=== PATIENT | female | born 1940 | race Caucasian/White ===

== ENCOUNTER 2020-01-22 00:17 | Outpatient (CLI) | payer MEDICARE, SELFPAY ==
[2020-01-22 20:43] LABS: SARS-CoV-2 RNA PCR Negative
== END 2020-01-22 00:18 | disposition home or self-care (01) ==
LOC: ANHCOVIDDT 00:18
PROVIDERS: PCP Internal Medicine; Visit Provider Specialist
DX: Z01.818 Encounter for other preprocedural examination (principal); Z11.59 Encounter for screening for other viral diseases
CPT/HCPCS: 87635; C9803; U0003

== ENCOUNTER 2020-01-25 05:23 | Day surgery (SDC) | payer MEDICARE, SELFPAY ==
[2020-01-22 16:57] VITALS: BMI 24.5
[2020-01-25] VITALS (10 sets, daily range): BP systolic 116–156; BP diastolic 69–104; PULSE 71–97; RESP 14–20; TEMP 36.6–36.8; O2SAT 96–99
--- NOTE | ~2020-01-25 | XR_ITS ---
EXAMINATION: XR chest 1V portable INDICATION: Pacemaker insertion TECHNIQUE: Portable AP chest at 1134 hours COMPARISON: None available FINDINGS: A dual-lead pacemaker of the left chest wall ends with its leads in expected positions. The re is no pneumothorax. The lungs are free of acute opacities. The cardiomediastinal silhouette is nor mal. Subsegmental atelectasis is noted in the mid and lower lung zones. Calcified pulmonary nodules a nd calcified left hilar lymph nodes are consistent with old granulomatous disease. Moderate left gordon ohumeral joint osteoarthritis is noted. IMPRESSION: 1. Left sided pacemaker with leads in expected position. No pneumothorax or acute cardiopulmonary abn ormality. Reviewed, dictated and finalized at location A. IMPRESSION: 1. Left sided pacemaker with leads in expected position. No pneumothorax or acu te cardiopulmonary abnormality.
--- NOTE | ~2020-01-25 | XR_ITS ---
EXAMINATION: XR chest 2V DATE: 01/26/2020 11:16 INDICATION: Pacemaker insertion TECHNIQUE: PA and lateral views of the chest are obtained. COMPARISON: 320 FINDINGS: A dual-lead pacemaker of the left chest wall ends with leads in expected position. There is mild atelectasis of the lower lung zones. There is no pleural effusion or pneumothorax. The cardiome diastinal silhouette is normal. There is mild thoracic spondylosis. IMPRESSION: 1. Pacemaker insertion without pneumothorax. Reviewed, dictated and finalized at location A.
--- NOTE | 2020-01-25 08:30 | ECG_ITS ---
Measurements Intervals [place] Rate: 94 P: 43 HI: 175 QRS: -13 QRSD: 82 T: 10 QT: 361 QTc: 451 Interpretive Statements SINUS RHYTHM POSSIBLE LEFT ATRIAL ENLARGEMENT INCOMPLETE RIGHT BUNDLE BRANCH BLOCK POSSIBLE LEFT VENTRICULAR HYPERTROPHY BORDERLINE ST-T WAVE ABNORMALITY- ANTEROLAT/INF LEADS BASELINE ARTIFACT- II, III BORDERLINE ECG Electronically Signed On 01-25-2020 9:34:41 CDT by Jose Varghese D.O.
[2020-01-25 09:22] LABS: Basophils Absolute Auto 0.1 K/mm3 (0.0-0.1); Basophils Percent Auto 0.7 % (0.2-1.2); Eosinophils Absolute Auto 0.1 K/mm3 (0-0.3); Eosinophils Percent Auto 1.4 % (0-4.4); Hematocrit 44.5 % (37.0-47.0); Immature Granulocyte Absolute 0.02 K/mm3 (0.00-0.031); Immature Granulocyte Percent A 0.3 % (0-0.5); Lymphocytes Absolute Auto 1.07 K/mm3 (0.9-3.2); Lymphocytes Percent Auto 14.9 % (18.3-44.2); Mean Corpuscular HGB Conc 33.7 g/dl (32-36); Mean Corpuscular Hemoglobin 31.9 pg (26-34); Mean Corpuscular Volume 94.7 fl (80-100); Monocytes Absolute Auto 0.6 K/mm3 (0.1-0.6); Monocytes Percent Auto 8.8 % (2.6-8.5); Neutrophils Absolute Auto 5.3 K/mm3 (1.3-6.7); Neutrophils Percent Auto 73.9 % (45.5-73.1); Platelet Count Result 315 k/mm3 (150-375); Red Cell Distribution Width 12.4 % (11.5-14.5); White Blood Count 7.2 K/mm3 (4.5-10.0)
--- NOTE | 2020-01-25 09:23 | WPDMODSED ---
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 Present Complaint: Intermittent episodes of near syncope for approximately 1 year Procedure to be performed/Plan: implantation of permanent pacemaker device Allergies Allergy/AdvReac Type Severity Reaction Status Date / Time No Known Allergies Allergy Verified 01/14/20 14:09 Home Medications Medication Instructions Recorded Confirmed Type acetaminophen 325 mg tablet 650 mg PO Q4H PRN tablet 08/25/19 01/22/20 History aspirin 81 mg tablet,delayed 81 mg PO DAILY 08/25/19 01/25/20 History release hyoscyamine sulfate 0.375 mg 0.375 mg PO Q12H 08/25/19 01/25/20 History tablet,extended release,12 hr potassium chloride 10 mEq 10 meq PO 3XW 08/25/19 01/25/20 History capsule,extended release pravastatin 40 mg tablet 40 mg PO DAILY 08/25/19 01/25/20 History meclizine 25 mg PO TID PRN 01/22/20 01/22/20 History calcium polycarbophil [FiberCon] 1,250 mg PO DAILY 01/25/20 01/25/20 History Current Medications: Active Medications Cefazolin Sodium (Ancef 1 Gm/D5w 50 Ml Pm) 1 gm in 50 mls @ 100 mls/hr IVPB ONCE ONE Stop: 01/25/20 10:29 Sedation/Anesthesia: No previous sedation/anesthesia problems (including family history). [facility]LY [facility] Past Medical History Medical History (System 01/14/20 @ 14:09 by Rosaura Wilder) Body mass index (bmi) 25.0-25.9, adult (02/25/19) Dizziness Dyslipidemia Essential hypertension History of IBS History of mitral valve prolapse Family History Family History (System 01/14/20 @ 14:09 by Rosaura Wilder) Father Cerebrovascular accident, Onset Age: 88 Mother Family history of arthritis, Onset Age: 85 Social History Social History (System 01/14/20 @ 14:09 by Rosaura Wilder) Smoking status: Never smoker Second hand tobacco smoke exposure: Yes Alcohol intake: never Substance use: never Substance use type: does not use Living arrangements: with family Gender identity (if verbalized by the patient): Female Spiritual care concerns: No Mod Sed Physical Exam Physical Exam Pre Procedural Exam: Normal: Appearance, Neck, Throat, Airway, Lungs, Heart Size, Heart Rate, Heart Rhythm, Neuro Exam and Extremities Hours since solid foods: 12 Hours since liquid intake: 12 Internal Medicine - PN: Minoo Da Meds/Results Medications: Active Medications Generic Name Dose Route Start Last Admin Trade Name Freq PRN Reason Stop Dose Admin Cefazolin Sodium 1 gm in 50 mls @ 100 mls/hr 01/25/20 10:00 Ancef 1 Gm/D5w 50 Ml Pm IVPB 01/25/20 10:29 ONCE ONE Labs CBC & Chem 7: 01/25/20 09:09 01/25/20 09:09 ASA Classification/Sedation ASA Classification/Sedation Risks: Risks, benefits and alternatives explained and patient/family accepted plan for sedation. Patient re-evaluated immediately prior to sedation.
[2020-01-25 09:24] LABS: Prothrombin Time 12.5 Seconds (11.1-14.7)
[2020-01-25 09:26] LABS: Anion Gap 11.5 mmol/L (7-16); Blood Urea Nitrogen 22 mg/dL (7-17); Calcium 9.5 mg/dL (8.4-10.2); Carbon Dioxide 26 mmol/L (22-30); Chloride 106 mmol/L (98-107); Estimated CRCL calculation 30 ml/min; Estimated Glomerular Filt Rate 48; Glucose 109 mg/dL (65-105); Potassium 3.5 mmol/L (3.4-5.0); Sodium 140 mmol/L (137-145)
--- NOTE | 2020-01-25 11:04 | ECG_ITS ---
Measurements Intervals [place] Rate: 70 P: 44 ID: [id number] QRS: -19 QRSD: 108 T: -7 QT: 383 QTc: 414 Interpretive Statements SINUS RHYTHM INCOMPLETE RIGHT BUNDLE BRANCH BLOCK LOW QRS VOLTAGE IN PRECORDIAL LEADS VOLTAGE CRITERIA FOR LVH BORDERLINE ST-T WAVE ABNORMALITY- INFERIOR LEADS BASELINE ARTIFACT- I, II, III, AVL, AVF BORDERLINE ECG Electronically Signed On 01-25-2020 11:57:35 CDT by Jose Varghese D.O.
--- NOTE | 2020-01-25 11:05 | WPDCARDPROC ---
Cardiac Cath Procedure Note Date of procedure:: 01/25/20 Performing physician:: Satish Holder MD Indication:: symptomatic bradycardia with second-degree AV block Brief clinical history:: this is a 79-year-old woman with a 1 year history of episodes of intermittent near-syncope. A 30 day event monitor has demonstrated evidence of intermittent second-degree AV block and for this reason implantation of a permanent pacemaker has been recommended Procedure Procedure performed:: permanent Biotronik dual-chamber pacemaker implantation Sedation/Medication given:: fentanyl 50 mg Versed 2 mg case start time 10:13 a.m. case end time 10:59 a.m. sedation provided by Kelly Ortiz RN , trained observer Access site:: left subclavian vein Estimated blood loss:: 15-20 cc Procedure note:: patient was brought to the cardiac catheterization lab i in the postabsorptive state. The left anterior chest wall was prepared and draped in the usual fashion. Following this anesthesia was injected locally with lidocaine inferior to the clavicle. An incision was then made inferior to the clavicle from the midclavicular line to the deltopectoral groove. Using sharp and blunt dissection the subcutaneous fat was dissected and the prepectoral fascia was identified. The electrocautery was used to provide cutaneous hemostasis. The a blunt dissection was used to create a pacemaker pocket inferior to the incision this was packed with an antibiotic soaked sponge. Following this attention was turned to venous access. Using the safe sheath kit supplied provided the left subclavian vein was punctured and the J guidewires were advanced under fluoroscopic guidance to the level of the right atrium. Following this to pacemaker safe sheaths were used to access the vein and place the leads mentioned below into the venous circulation to the level of the right atrium. Attention was then turned to the ventricular lead. The stylette was withdrawn and the 3 cc syringe was used to fashion a J-tip stylet. This was used to steer the lead through the RV out to the PA position. A straight stylet was placed back into the lead was withdrawn and placed into the right ventricular apical position. The fixation screw was deployed and the lead was tested using the analyzer appropriate pacing and sensing performance was demonstrated. There was no extracardiac stimulation with a 10 both stimulus. Attention was then turned to the atrial lead. The straight stylet was withdrawn and a preformed J stylet was placed into the lead there was positioned into the right atrial appendage and the fixation screw was deployed. Upon withdrawal of the stylet the lead was fixed into position. The lead performance was also tested using the analyzer with good pacing and sensing and no extracardiac stimulation was demonstrated with a 10 volts stimulus. Following this the leads were sutured to the base of the pocket using the supplied suture sleeves on the leads. This was done with 2 0 silk. The retained sponge was removed and the pocket was irrigated with antibiotic as it infused saline. After this the generator detailed below was connected to the leads using the torque wrench the entire assembly was placed into the newly created pocket this was then closed in layers using 3 0 Vicryl in an interrupted fashion for the subcutaneous tissue and 4 0 Vicryl in a running subcuticular fashion for the skin. The wound was dressed with an Aquacel dressing. She was taken to the holding area for recovery procedure was well tolerated there were no apparent complications. Postop antibiotics chest x-ray ECG and analgesics were ordered. Findings:: Patient received a Biotronik dual-chamber pacemaker model Edora 8 DR-T serial number [id number]. the device is programmed in the DDD mode low lower rate limit is 60 upper rate limit 130. The atrial lead is a Biotronik screw-in bipolar lead model Solia S 45, serial number [id number]. The
--- NOTE | 2020-01-25 11:54 | SUR.PHASEII ---
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 Site covered with Aquacel dressing. No evidence of bleeding or hematoma noted. AOx4. EKG completed. Chest x-ray completed. Will continue to monitor.
--- NOTE | 2020-01-25 12:17 | SUR.PHASEII ---
1215-pt moved to extended recovery. Will continue to chart in PCS.
[2020-01-25] MEDS: HYOSCYAMINE SULFATE 0.375 MG TAB.ER.12H PO (16:45)
[2020-01-25] MEDS: PRAVASTATIN SODIUM 20 MG TABLET 40 MG PO (17:39)
[2020-01-25] MEDS: ACETAMINOPHEN 325 MG TABLET 650 MG PO (23:41)
[2020-01-26 02:00] VITALS: PULSE 69
[2020-01-26 04:00] VITALS: BP 124/70; PULSE 68; RESP 16; TEMP 36.3; O2SAT 98
[2020-01-26 05:44] VITALS: PULSE 62
[2020-01-26] MEDS: HYOSCYAMINE SULFATE 0.375 MG TAB.ER.12H PO (06:36)
[2020-01-26 08:00] VITALS: BP 92/60; PULSE 81; RESP 18; O2SAT 100
[2020-01-26] MEDS: calcium polycarbophiL 625 MG TABLET 1250 MG PO (09:32)
[2020-01-26 10:26] VITALS: BP 142/86
--- NOTE | 2020-01-26 12:45 | PM.DS ---
DS: Admitting Diagnosis Admitting Diagnosis Admitting Diagnosis: Symptomatic bradycardia with second-degree AV block DS: Discharge Diagnosis Discharge Diagnosis (1) Heart block AV second degree: Code(s): I44.1 - Atrioventricular block, second degree Status: Acute Assessment and Plan: symptomatic bradycardia. Second-degree AV block. Biotronik dual-chamber pacemaker placed 01/25/2020. Pacemaker is functioning normally. Chest x-ray reveals no pneumothorax. Left subclavian Aquacel dressing intact with no swelling, ecchymosis or drainage. DS: Summary Hospital Course Reason for hospitalization: Symptomatic bradycardia with second-degree AV block Hospital Course: 79-year-old female with symptomatic bradycardia found to be in second-degree heart block was brought to the cardiac catheterization lab on 01/25/2020 for implantation of pacemaker. Dual-chamber Biotronik pacemaker was placed to Dr. Holder. Initial chest x-ray revealed no pneumothorax. She was monitored overnight. Pacemaker is functioning normally. The AV delay was adjusted due to her heart block. Chest x-ray PA and lateral again revealed no pneumothorax. Vital signs were stable. She had no complaints of lightheadedness, shortness of breath or palpitations. She was discharged home in stable condition. Status at Discharge Functional status at discharge: independent ambulation Overall status at discharge: patient is progressing back to baseline Time Spent with Patient Time attestation: Total time spent providing and/or coordinating discharge services: 20 minutes in the room doing discharge instructions and answering a number of questions, 10 minutes to do discharge order and 10 minutes to do discharge summary Time spent: Greater than 30 minutes Specific discharge activities: Specific instructions regarding the immobilizer, activity restrictions regarding how high she can move her arm and what she can do with her left arm, follow-up appointments, care of the incision including not removing the dressing, driving, [employer] home monitoring and answering a number of questions from her and her . Exam Const: General: comfortable and no acute distress Limitations: no limitations HENMT: Head: normal to inspection, normocephalic and atraumatic Ears: hearing grossly normal bilaterally General nose exam: no epistaxis Mouth: Yes moist mucous membranes Eyes: General: appearance normal, both eyes and all related structures Neck: Neck: normal visual inspection Resp: Effort & Inspection: normal respiratory effort and able to speak in complete sentences Auscultation: clear to auscultation bilaterally Cardio: Rate: regular rate Rhythm: regular rhythm Heart sounds: no murmurs Peripheral pulses: Peripheral pulses 2+ throughout GI: GI Palp: Yes Soft to palpation Auscultation: normal bowel sounds Skin: General skin exam: normal color and no rashes or lesions noted Neuro: General: gait normal Extrem: General: normal to inspection and no clubbing, cyanosis or edema Psych: Appearance: grossly normal Mental Status: mental status grossly normal Speech and movement: Normal speech and movement present Affect: normal affect Attitude: cooperative Thought process: Normal thought process present Discharge Plan Discharge Patient Disposition: Home, Self-Care Discharge Instructions: ACTIVITY:No driving until you are seen in the office for your incision check. No lifting, pushing or pulling more than 5 pounds with left arm for 1 MONTH No lifting left arm above shoulder height for 1 MONTH Wear immobilizer at night. Wear it during the day only if you are unable to remember the above activity restrictions. You may shower AFTER you are seen for incision check on February 01 but no tub baths, swimming pool or hot tub for 1MONTH Plug in your [employer] home monitoring when you get home. FOLLOW-UP:
== END 2020-01-26 13:05 | disposition home or self-care (01) ==
LOC: ANHCATHLAB 08:42 → ANHCPC 12:19
PROVIDERS: PCP Internal Medicine; Visit Provider Specialist
PROC: 0JH606Z Insertion of Pacemaker, Dual Chamber into Chest Subcutaneous Tissue and Fascia, Open Approach (ICD-10-PCS; CPT 33208; principal; 2020-01-25 10:00)
DX: I44.1 Atrioventricular block, second degree (principal); R00.1 Bradycardia, unspecified
CPT/HCPCS: 33208; 36415; 71045; 71046; 80048; 85025; 85610; 93005; A9270; C1779; C1785; J0690; J2250; J3010; J7040

== ENCOUNTER 2020-02-04 13:50 | Outpatient (CLI) | payer MEDICARE, SELFPAY ==
--- NOTE | ~2020-02-04 | CT_ITS ---
EXAMINATION: CT chest w con EXAM DATE: 02/04/2020 16:00 INDICATION: Shortness of breath. Mid chest pain. 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 TECHNIQUE: Spiral CT of the chest following intravenous injection of 75 mL Omnipaque 350. Axial, cor onal and sagittal images were reviewed. Coronal maximum intensity pixel images of chest reviewed. Frances zendejas dose-length product (DLP) for this examination was 154.95 mGy-cm. The exposure was tailored accor ding to patient size (auto mA exposure control), and iterative reconstruction (ASIR) was used as nguyen tional dose reduction technique. There is no prior study for comparison. FINDINGS: The pulmonary arteries are well opacified, no evidence of pulmonary embolism. The lungs ar e clear. There are no pleural or pericardial effusions. Tracheobronchial tree is patent. There is no mediastinal, hilar or axillary lymphadenopathy. There is no pneumothorax. Dual lead pacemaker/A ICD device. Heart normal in size. There is mild coronary arterial calcification, arterial sclerosis . There is mild emphysema. There is a 1 cm lesion at the right liver dome which is arterially enhanc ing, consistent with flash filling hemangioma. Hypervascular metastatic lesion not excludable. There is thoracic spondylosis without osteoblastic or osteolytic lesions identified. IMPRESSION: 1. Small liver dome lesion most likely flash filling hemangioma, but can't exclude hypervascular met astatic lesion. Since MR is contraindicated due to pacemaker, consider 3 month follow-up CT abdomen w ith contrast. 2. Mild emphysema. 3. No acute findings. Reviewed, dictated and finalized at location A. IMPRESSION: 1. Small liver dome lesion most likely flash filling hemangioma, but can't exc lude hypervascular metastatic lesion. Since MR is contraindicated due to pacema ker, consider 3 month follow-up CT abdomen with contrast. 2. Mild emphysema. 3. No acute findings.
== END 2020-02-04 13:51 ==
LOC: ANHIMG 02-15 13:50
PROVIDERS: PCP Internal Medicine; Visit Provider Specialist
DX: R06.02 Shortness of breath (principal); I44.1 Atrioventricular block, second degree; J43.9 Emphysema, unspecified
CPT/HCPCS: 71260; Q9967

== ENCOUNTER 2020-03-11 07:15 | Outpatient (CLI) | payer MEDICARE, SELFPAY ==
--- NOTE | ~2020-03-11 | NM_ITS ---
EXAMINATION: NM phuc stress w perfusion DATE: 03/11/2020 11:57 INDICATION: Coronary artery disease. Cardiac pacemaker. TECHNIQUE: Rest images were obtained following intravenous administration of 11.7 mCi Tc99m tetrofosm in (Myoview). The patient was infused intravenously with Lexiscan (Regadenoson). Then, 81.4 mCi Tc99m tetrofosmin (Myoview) was administered intravenously, and stress images were obtained. Data was jake nstructed into short axis and horizontal and vertical long axis SPECT images. Gated SPECT images were also obtained. COMPARISON: None. FINDINGS: There is no definite reversible or fixed perfusion abnormality to suggest ischemia or infar ction. There is normal left ventricular chamber size, wall motion and ejection fraction. Left ventr icular ejection fraction measures >70%. IMPRESSION: 1. Normal myocardial perfusion at rest and during stress. 2. Left ventricular ejection fraction measuring >70%. Reviewed, dictated and finalized at location A.
--- NOTE | 2020-03-11 07:33 | EST_ITS ---
Patient Info Name: Ml Wells Age: 79 years : 1940 Gender: Female Ht: 63 in Wt: 138 lbs BSA: 1.68 m2 Exam Date: 03/11/2020 10:18 AM Exam Location: [facility] Stress Patient Status: Outpatient Admit Date: 03/11/2020 Staff Ordering Physician: Jose Varghese DO Attending Provider: Jose Varghese DO Exercise Technologist: Loyda Guillen RDCS Exercise Physician: Jose Varghese DO Exam Type: CA stress phuc w NM Study Info Indications Z95.0 - Presence of cardiac pacemaker A regadenoson stress test was performed. Summary 1. 1. Negative lexiscan stress test for ischemic ST changes by ECG criteria. 2. 2. Baseline hypertension. 3. 3. Nuclear scan to follow and will be reported separately. Please correlate with it. 4. 4. Patient informed of the above results. Protocol: Lexiscan Stress ECG Details Stage: REST Duration (min): 9 min : 37 sec HR (bpm): 76 SBP (mmHg): 145 DBP (mmHg): 89 Stage: REST Duration (min): 16 min : 1 sec HR (bpm): 81 SBP (mmHg): 145 DBP (mmHg): 89 Stage: STAGE 1 Duration (min): 0 min : 59 sec HR (bpm): 79 SBP (mmHg): 145 DBP (mmHg): 89 Stage: RECOVERY Duration (min): 1 min : 0 sec HR (bpm): 103 SBP (mmHg): 170 DBP (mmHg): 57 Stage: RECOVERY Duration (min): 2 min : 0 sec HR (bpm): 108 SBP (mmHg): 170 DBP (mmHg): 57 Stage: RECOVERY Duration (min): 3 min : 0 sec HR (bpm): 105 SBP (mmHg): 165 DBP (mmHg): 58 Stage: RECOVERY Duration (min): 4 min : 0 sec HR (bpm): 105 SBP (mmHg): 165 DBP (mmHg): 58 Stage: RECOVERY Duration (min): 5 min : 0 sec HR (bpm): 100 SBP (mmHg): 165 DBP (mmHg): 58 Stage: RECOVERY Duration (min): 6 min : 0 sec HR (bpm): 101 SBP (mmHg): 195 DBP (mmHg): 61 Stage: RECOVERY Duration (min): 7 min : 0 sec HR (bpm): 98 SBP (mmHg): 184 DBP (mmHg): 78 Stage: RECOVERY Duration (min): 8 min : 0 sec HR (bpm): 99 SBP (mmHg): 184 DBP (mmHg): 78 Stage: RECOVERY Duration (min): 9 min : 0 sec HR (bpm): 96 SBP (mmHg): 192 DBP (mmHg): 75 Stage: RECOVERY Duration (min): 10 min : 0 sec HR (bpm): 98 SBP (mmHg): 192 DBP (mmHg): 75 Stage: RECOVERY Duration (min): 11 min : 0 sec HR (bpm): 98 SBP (mmHg): 193 DBP (mmHg): 79 Stage: RECOVERY Duration (min): 11 min : 16 sec HR (bpm): 100 SBP (mmHg): 193 DBP (mmHg): 79 Rest HR: 81 bpm Peak HR: 108 bpm Rest Sys BP: 145 mmHg Peak Sys BP: 195 mmHg Max Pred HR: 142 bpm % Max Pred HR: 76 % Target HR: 121 bpm Max RPP: 21,060 bpm*mmHg Termination Reason: Completed protocol Cardiac Symptoms: Shortness of breath Total Time: 1 min : 0 sec Rest Sanchez BP: 89 mmHg Peak Sanchez BP: 61 mmHg Total Dose: 0.4 mg Resting ECG Sinus rhythm wit
--- NOTE | 2020-03-11 07:33 | ECHO_ITS ---
Patient Info Name: Ml Wells Age: 79 years : 1940 Gender: Female Ht: 63 in Wt: 138 lbs BSA: 1.68 m2 HR: 83 bpm BP: 167 / 90 mmHg Technical Quality: Good Exam Date: 03/11/2020 7:41 AM Exam Location: [facility] Pulmonary Patient Status: Outpatient Admit Date: 03/11/2020 Staff Ordering Physician: Jose Varghese DO Glass Blower Helper: Loyda Guillen RDCS Attending Provider: Jose Varghese DO Referring Physician: Abimael CABRALES; Exam Type: CA echo doppler color flow Study Info Indications Z95.0 - Presence of cardiac pacemaker Complete two-dimensional, color flow and Doppler transthoracic echocardiogram is performed. Summary 1. Complete two-dimensional, color flow and Doppler transthoracic echocardiogram is performed. 2. Ventricular septum is sigmoid shaped. 3. E/e' 20 is elevated. 4. The mitral valve has moderately calcified annulus. Left Ventricle Ventricular septum is sigmoid shaped. E/e' 20 is elevated. Left ventricular chamber dimension is normal. Left ventricular systolic function is normal, estimated at 65-70%. There is mildly increased left ventricular wall thickness. The left ventricular diastolic function is grade I diastolic dysfunction. Right Ventricle Right ventricular chamber dimension is normal. Right ventricular systolic function is normal. Left Atria Left atrial chamber dimension is moderately enlarged. Right Atria Linear artifact in the right atrium suggestive of catheter(s), pacemaker lead(s), or ICD lead(s). Right atrial chamber dimension is normal. Aortic Valve The aortic valve is trileaflet. There is mild aortic valve sclerosis. There is no aortic valve stenosis. There is no aortic valve regurgitation. Pulmonic Valve There is no pulmonic regurgitation. Mitral Valve The mitral valve has moderately calcified annulus. There is no mitral valve stenosis. There is no mitral valve regurgitation. Tricuspid Valve There is trace tricuspid valve regurgitation. No pulmonary hypertension, estimated pulmonary arterial systolic pressure is 39 mmHg. Pericardium/Pleural There is no pericardial effusion. Inferior Vena Cava Normal inferior vena cava with >50% collapse upon inspiration consistent with normal right atrial pressure, 5 mmHg. Aorta The aortic root size at the sinus of Valsalva is normal. Left Ventricular Outflow Tract Name Value Normal LVOT 2D LVOT Diameter 1.9 cm LVOT Doppler LVOT Peak Gradient 6 mmHg LVOT Mean Gradient 3 mmHg LVOT VTI 27 cm LVOT VTI/AV VTI Ratio 0.9 LVOT Stroke Volume 75 ml LVOT CO 5.3 l/min LVOT CI 3.2 l/min/m2 Pulmonic Valve Name Value Normal RVOT Doppler RVOT
== END 2020-03-11 07:16 | disposition home or self-care (01) ==
PROVIDERS: PCP Internal Medicine; Visit Provider Internal Medicine Cardiovascular Disease
DX: R07.9 Chest pain, unspecified (principal); Z95.0 Presence of cardiac pacemaker
CPT/HCPCS: 78452; 93017; 93306; A9502; J2785

== ENCOUNTER 2020-03-23 13:42 | Emergency (ER) | payer MEDICARE, SELFPAY ==
--- NOTE | ~2020-03-23 | CT_ITS ---
EXAMINATION: CT brain wo con DATE: 03/23/2020 15:52 INDICATION: Sudden onset of dizziness, nausea, emesis. Posterior headache. TECHNIQUE: Computed tomography (CT) of the head was performed without intravenous contrast. The mA wa s adjusted according to patient size. Iterative reconstruction technique was employed. Exam dose: 68 1.00 mGy-cm total exam DLP. COMPARISON: None FINDINGS: No intracranial mass lesion or hemorrhage or cerebrovascular accident. No midline shift or mass effect. There are prominent bilateral carotid siphon internal carotid artery calcifications. There is nonspec ific diminished attenuation of the cerebral white matter, likely due to chronic small vessel ischemic changes. No subdural or epidural hematoma. There is moderate cerebral and cerebellar atrophy. At least 1.5 cm mucous retention cyst or polyp of the right maxillary sinus. The included paranasal s inuses and the mastoid air cells are otherwise unremarkable. No fracture or bone destruction of the cranial vault. IMPRESSION: Cerebral atherosclerosis and chronic small vessel ischemic changes of cerebral white mat ter Reviewed, dictated and finalized at [facility]. Reviewed, dictated and finalized at location [facility]. IMPRESSION: Cerebral atherosclerosis and chronic small vessel ischemic changes of cerebral white matter
[2020-03-23 13:53] VITALS: BP 180/76; PULSE 71; RESP 16; TEMP 36.2; O2SAT 100
--- NOTE | 2020-03-23 14:28 | ED.DIZZY ---
HPI - Dizziness General Chief Complaint: Dizziness Stated Complaint: N/V DIZZINESS SINCE 1200 Time Seen by Provider: 03/23/20 14:23 History of Present Illness HPI Narrative: Dizziness since noon. Started suddenly. Associated with nausea and vomiting, and unstable gait. Worse with movmenet and lying on her back. Feeling well prior to this. Additionally has pain in the neck and posterior portion of the head. She has never had this before. Related Data Home Medications Medication Instructions Recorded Confirmed acetaminophen 325 mg tablet 650 mg PO Q4H PRN tablet 08/25/19 02/09/20 aspirin 81 mg tablet,delayed 81 mg PO DAILY 08/25/19 02/09/20 release hyoscyamine sulfate 0.375 mg 0.375 mg PO Q12H 08/25/19 02/09/20 tablet,extended release,12 hr potassium chloride 10 mEq 10 meq PO 3XW 08/25/19 02/09/20 capsule,extended release pravastatin 40 mg tablet 40 mg PO DAILY 08/25/19 02/09/20 calcium polycarbophil [FiberCon] 1,250 mg PO DAILY 01/25/20 02/09/20 pantoprazole 40 mg tablet,delayed 40 mg PO QAM 02/09/20 02/09/20 release Allergies Allergy/AdvReac Type Severity Reaction Status Date / Time No Known Allergies Allergy Verified 02/09/20 10:03 Review of Systems Review of Systems: All systems reviewed & are unremarkable except as noted in HPI and below Constitutional: Constitutional: Denies chills, Denies fever(s) and Denies weakness Cardiovascular: Cardiovascular: Denies chest pain Respiratory: Respiratory: Denies dyspnea Gastrointestinal: Gastrointestinal: Denies abdominal pain, Reports nausea and Reports vomiting Genitourinary: Genitourinary: Denies hematuria and Denies dysuria Musculoskeletal: Musculoskeletal: Denies back pain Neurologic: Denies confusion, Reports vertigo, Reports headache(s), Denies numbness and Denies weakness [facility] Past Medical History Medical History Body mass index (bmi) 25.0-25.9, adult (02/25/19) Dizziness Dyslipidemia Essential hypertension History of IBS History of mitral valve prolapse Family History Family History Father Cerebrovascular accident, Onset Age: 88 Mother Family history of arthritis, Onset Age: 85 Social History Social History Smoking status: Never smoker Second hand tobacco smoke exposure: Yes Alcohol intake: never Substance use: never Substance use type: does not use Gender identity (if verbalized by the patient): Male Spiritual care concerns: No Exam Const: General: alert and ill appearing Nutritional Appearance: well nourished Orientation/consciousness: patient oriented x3 HENMT: Head: normal to inspection Eyes: Pupils: Equal, round and reactive pupils present EOM: EOMs intact bilaterally Resp: Effort & Inspection: normal respiratory effort Auscultation: clear to auscultation bilaterally Cardio: Rate: regular rate Rhythm: regular rhythm Skin: General skin exam: normal color Neuro: General: patient oriented x3, moves all extremities, no meningeal signs, no focal motor deficits and CN's II-XI intact bilaterally Cranial nerves: Yes Nystagmus present horizontal Speech: normal speech Extrem: General: normal to inspection and no edema Course Vital Signs Vital signs: Vital Signs Temperature 36.2 C L 03/23/20 13:53 Pulse Rate 71 03/23/20 13:53 Respiratory Rate 16 03/23/20 13:53 Blood Pressure 180/76 H 03/23/20 13:53 Pulse Oximetry 100 03/23/20 13:53 Temperature 36.2 C L 03/23/20 13:53 Pulse Rate 80 03/23/20 19:36 Respiratory Rate 20 03/23/20 19:36 Blood Pressure 138/72 03/23/20 19:36 Pulse Oximetry 99 03/23/20 19:36 MDM - Dizziness MDM Narrative Medical decision making narrative: History and exam most concerning for peripheral vertigo. Will get CT to r/o SAH or other acute intracranial
[2020-03-23] MEDS: diazePAM INJ (*CRX) 10 MG/2 ML SYRINGE 5 MG IV PUSH (14:58)
[2020-03-23] MEDS: METOCLOPRAMIDE HCL INJ 10 MG/2 ML VIAL IV PUSH (14:58)
[2020-03-23] MEDS: SODIUM CHLORIDE 0.9% IV 500 ML 999 ML IV CONT (14:59)
[2020-03-23 15:41] LABS: Basophils Absolute Auto 0.1 K/mm3 (0.0-0.1); Basophils Percent Auto 0.8 % (0.2-1.2); Eosinophils Percent Auto 0.4 % (0-4.4); Hemoglobin 14.2 g/dL (12.0-15.0); Immature Granulocyte Absolute 0.11 K/mm3 (0.00-0.031); Immature Granulocyte Percent A 1.5 % (0-0.5); Lymphocytes Absolute Auto 1.25 K/mm3 (0.9-3.2); Lymphocytes Percent Auto 16.5 % (18.3-44.2); Mean Corpuscular HGB Conc 33.8 g/dl (32-36); Mean Corpuscular Hemoglobin 31.6 pg (26-34); Mean Corpuscular Volume 93.5 fl (80-100); Mean Platelet Volume 9.4 fl (7.4-10.4); Monocytes Absolute Auto 0.5 K/mm3 (0.1-0.6); Monocytes Percent Auto 6.3 % (2.6-8.5); Neutrophils Absolute Auto 5.7 K/mm3 (1.3-6.7); Neutrophils Percent Auto 74.5 % (45.5-73.1); Platelet Count Result 281 k/mm3 (150-375); Red Blood Count 4.49 M/mm3 (4.2-5.4); Red Cell Distribution Width 12.5 % (11.5-14.5); White Blood Count 7.6 K/mm3 (4.5-10.0)
[2020-03-23 15:48] LABS: Anion Gap 7 mmol/L (8-16); Blood Urea Nitrogen 26 mg/dL (7-17); Calcium 9.7 mg/dL (8.4-10.2); Carbon Dioxide 29 mmol/L (22-30); Chloride 108 mmol/L (98-107); Estimated CRCL calculation 34 ml/min; Estimated Glomerular Filt Rate 54; Glucose 134 mg/dL (65-105); Potassium 3.7 mmol/L (3.4-5.0); Sodium 144 mmol/L (137-145)
[2020-03-23 17:24] VITALS: BP 165/92; PULSE 73; RESP 18; O2SAT 99
[2020-03-23 18:15] LABS: Add Urine Microscopic? NO; Appearance Urine Clear (Clear); Bilirubin Urine Negative (Negative); Blood Urine Negative (Negative); Color Urine Yellow (Yellow); Glucose Urine UA Negative (Negative); Ketones Urine Negative (Negative); Leukocyte Esterase Ur Negative LEU/UL (Negative); Nitrate Urine Negative (Negative); Protein Urine Negative (Negative); Specific Grav Ur 1.015 (1.001-1.035); Urobilinogen Urine Negative mg/dL (<2.0)
[2020-03-23 19:36] VITALS: BP 138/72; PULSE 80; RESP 20; O2SAT 99
== END 2020-03-23 19:38 | disposition home or self-care (01) ==
PROVIDERS: Emergency Provider Emergency Medicine; PCP Internal Medicine
DX: H81.399 Other peripheral vertigo, unspecified ear (principal); E78.5 Hyperlipidemia, unspecified; I10 Essential (primary) hypertension; K58.9 Irritable bowel syndrome, unspecified; I34.1 Nonrheumatic mitral (valve) prolapse; Z79.82 Long term (current) use of aspirin
CPT/HCPCS: 36415; 70450; 80048; 81003; 85025; 96361; 96374; 96375; 99284; J2765; J3360; J7040

== ENCOUNTER 2021-07-21 09:43 | Inpatient (IN) | payer MEDICARE, SELFPAY ==
[2021-07-21] VITALS (15 sets, daily range): BP systolic 109–176; BP diastolic 47–103; PULSE 72–100; RESP 13–25; TEMP 36.8–37; O2SAT 90–100; BMI 27.5
--- NOTE | ~2021-07-21 | US_ITS ---
EXAMINATION: US venous doppler [facility] DATE: 07/21/2021 16:05 INDICATION: Lower limb edema. TECHNIQUE: Grayscale ultrasound images without and with compression and Doppler ultrasound images of the bilateral lower extremity veins were obtained. COMPARISON: None. FINDINGS: The visualized portions of right common femoral vein, profunda (deep) femoral vein, femoral vein, pop liteal vein, peroneal veins, posterior tibial veins, and greater saphenous vein outflow are patent. The visualized portions of left common femoral vein, profunda femoral vein, femoral vein, popliteal v ein, peroneal veins, posterior tibial veins, and greater saphenous vein outflow are patent. IMPRESSION: 1. No deep venous thrombosis. Reviewed, dictated and finalized at location A. ICIAN CHIEF OF PATHOLOGY
--- NOTE | ~2021-07-21 | CT_ITS ---
EXAMINATION: CTA chest PE protocol EXAM DATE: 07/21/2021 14:25 INDICATION: cp, sob, elevated dimer TECHNIQUE: Spiral CTA of the chest (pulmonary arteries) was performed with 100 cc Omnipaque 350 intr avenous contrast injection. Images were acquired during the pulmonary arterial phase. Coronal maxi mum intensity projection 3D-reconstructions were created by the technologist on dedicated workstation . Axial, coronal and sagittal reformatted images were reviewed. The dose-length product (DLP) for t his examination was 333.10 mGy-cm. The exposure was tailored according to patient size (auto mA exp osure control), and iterative reconstruction (ASIR) was used as additional dose reduction technique. Comparison is made to prior examination from 02/04/2020. FINDINGS: There are several segmental right-sided pulmonary emboli, low clot burden. No right heart strain. There is small right pleural effusion, and a trace left pleural effusion. There is linear luan ateral upper lobe atelectasis anteriorly. Some scattered granulomata. No thoracic aortic dissection. Tracheobronchial tree is patent. There is no mediastinal, hilar or axillary lymphadenopathy. There is no pneumothorax. There is cardiomegaly. Mild emphysema. Pacemaker/AICD device. There is moderate coronary arterial calcification, arterial sclerosis. Gallbladder pharyngeal cap. Mildly ind istinct gallbladder wall, nonspecific. Gallbladder has expected amount of distention. There are no os teoblastic or osteolytic lesions identified. IMPRESSION: 1. Positive for several small right-sided segmental pulmonary emboli, low clot burden. 2. Cardiomegaly. Small right, trace left pleural effusions. Subsegmental atelectasis. 3. Mildly indistinct gallbladder wall, without calcified cholelithiasis, gallbladder distention. Non specific. Reviewed, dictated and finalized at location A. FOOD SERVICES MANAGER IMPRESSION: 1. Positive for several small right-sided segmental pulmonary emboli, low clot burden. 2. Cardiomegaly. Small right, trace left pleural effusions. Subsegmental atele ctasis. 3. Mildly indistinct gallbladder wall, without calcified cholelithiasis, gallb ladder distention. Nonspecific.
--- NOTE | ~2021-07-21 | XR_ITS ---
XR chest 1V portable 07/21/2021 11:32 Indication: Chest pain and shortness of breath Procedure: AP portable chest Comparison: 01/26/2020 Findings: Elevated right diaphragm. Right basilar atelectasis. Pacemaker leads are stable. Heart size normal. There is right perihilar infiltrates. Impression: 1: Right perihilar and right basilar linear infiltrates which may represent atelectasis/scarring or l ess likely developing pneumonia. Reviewed, dictated and finalized at location B. ECT RESERVOIR ENGINEER Impression: 1: Right perihilar and right basilar linear infiltrates which may represent ate lectasis/scarring or less likely developing pneumonia.
--- NOTE | 2021-07-21 09:59 | ECG_ITS ---
Measurements Intervals [place] Rate: 83 P: 56 [place]: 175 QRS: -14 QRSD: 97 T: 7 QT: 339 QTc: 400 Interpretive Statements SINUS RHYTHM INCOMPLETE RIGHT BUNDLE BRANCH BLOCK LOW QRS VOLTAGE IN PRECORDIAL LEADS LEFT VENTRICULAR HYPERTROPHY AND ST-T CHANGE MINIMAL Q WAVES- HIGH LATERAL LEADS BORDERLINE ST-T WAVE ABNORMALITY- ANT/INF LEADS BASELINE ARTIFACT- I, II, III, AVR, AVL, AVF, V5 BORDERLINE ECG Electronically Signed On 07-21-2021 10:14:14 ASSISTANT DIRECTOR OF SECURITY by Jose Varghese D.O.
[2021-07-21 11:36] LABS: Basophils Percent Auto 0.2 % (0.2-1.2); Eosinophils Percent Auto 0.1 % (0-4.4); Hemoglobin 9.9 g/dL (12.0-15.0); Immature Granulocyte Absolute 0.06 K/mm3 (0.00-0.031); Immature Granulocyte Percent A 0.5 % (0-0.5); Lymphocytes Absolute Auto 0.83 K/mm3 (0.9-3.2); Lymphocytes Percent Auto 6.4 % (18.3-44.2); Mean Corpuscular HGB Conc 31.9 g/dl (32-36); Mean Corpuscular Hemoglobin 28.5 pg (26-34); Mean Corpuscular Volume 89.3 fl (80-100); Mean Platelet Volume 8.9 fl (7.4-10.4); Monocytes Absolute Auto 1.3 K/mm3 (0.1-0.6); Monocytes Percent Auto 10.1 % (2.6-8.5); Neutrophils Absolute Auto 10.8 K/mm3 (1.3-6.7); Neutrophils Percent Auto 82.7 % (45.5-73.1); Platelet Count Result 408 k/mm3 (150-375); Red Blood Count 3.47 M/mm3 (4.2-5.4); Red Cell Distribution Width 13.9 % (11.5-14.5)
[2021-07-21] MEDS: ASPIRIN 81 MG CHEWABLE TABLET 324 MG PO (11:41)
--- NOTE | 2021-07-21 11:43 | ED.SOB ---
HPI - SOB/Dyspnea General Chief Complaint: Shortness of Breath/Dyspnea <Ratna Balderrama PA-C - Last Filed: 07/21/21 15:11> Stated Complaint: SOB <ANGELES James Last Filed: 07/21/21 15:11> Time Seen by Provider: 07/21/21 11:15 <ANGELES James Last Filed: 07/21/21 15:11> Source: patient <ANGELES James Last Filed: 07/21/21 15:11> Mode of arrival: ambulatory <ANGELES James Last Filed: 07/21/21 15:11> Limitations: no limitations <ANGELES James Last Filed: 07/21/21 15:11> History of Present Illness HPI Narrative: This is a 80 year old female that presents to the ER for shortness of breath ongoing for the last week. Reports exertional dyspnea. Associated with some chest discomfort. Reports she has not been able to walk very far without needing to rest. She recently had COVID, but symptoms from that have resolved. Does report she noted some lower extremity edema today. She was taken off of her diuretic a couple of months ago. 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 Denies fever, or cough. <Ratna Balderrama PA-C - Last Filed: 07/21/21 15:11> Related Data Home Medications: Home Medications Medication Instructions Recorded Confirmed acetaminophen 325 mg tablet 650 mg PO Q4H PRN tablet 08/25/19 02/06/21 aspirin 81 mg tablet,delayed 81 mg PO DAILY 08/25/19 02/06/21 release hyoscyamine sulfate 0.375 mg 0.375 mg PO Q12H 08/25/19 02/06/21 tablet,extended release,12 hr potassium chloride 10 mEq 10 meq PO 3XW 08/25/19 02/06/21 capsule,extended release pravastatin 40 mg tablet 40 mg PO DAILY 08/25/19 02/06/21 calcium polycarbophil [FiberCon] 1,250 mg PO DAILY 01/25/20 02/06/21 pantoprazole 40 mg tablet,delayed 40 mg PO QAM 02/09/20 02/06/21 release amlodipine 5 mg tablet 5 mg PO DAILY 08/08/20 02/06/21 escitalopram oxalate 10 mg tablet 10 mg PO DAILY 08/08/20 02/06/21 famotidine 20 mg tablet 20 mg PO DAILY 08/08/20 02/06/21 hydrochlorothiazide 12.5 mg tablet 12.5 mg PO 3XW tablet 08/08/20 02/06/21 losartan 50 mg tablet 50 mg PO DAILY 08/08/20 02/06/21 <Ratna Balderrama PA-C - Last Filed: 07/21/21 15:11> Allergies/Adverse Reactions: Allergies Allergy/AdvReac Type Severity Reaction Status Date / Time No Known Allergies Allergy Verified 02/06/21 09:00 <Ratna Balderrama PA-C - Last Filed: 07/21/21 15:11> Review of Systems Review of Systems: CONSTITUTIONAL: Denies fever, ENT: Denies rhinorrhea, congestion, sore throat CARDIOVASCULAR: Reports chest pain, and edema. RESPIRATORY: Reports dyspnea. Denies cough <Ratna Balderrama PA-C - Last Filed: 07/21/21 15:11> All systems reviewed & are unremarkable except as noted in HPI and below <Ratna Balderrama PA-C - Last Filed: 07/21/21 15:11> [facility] Past Medical History Medical History: Medical History (Updated 07/21/21 @ 15:07 by Ratna Balderrama PA-C) Body mass index (bmi) 25.0-25.9, adult (02/25/19) Dizziness Dyslipidemia Essential hypertension History of IBS History of mitral valve prolapse <Ratna Balderrama PA-C - Last Filed: 07/21/21 15:11> Family History Family History: Family History Father Cerebrovascular accident, Onset Age: 88 Mother Family history of arthritis, Onset Age: 85 <Ratna Balderrama PA-C - Last Filed: 07/21/21 15:11> Social History Social History: Social History Smoking status: Never smoker Second hand tobacco smoke exposure: Yes Alcohol intake: never Substance use: never Substance use type: does not use Gender identity (if verbalized by the patient): Male Spiritual care concerns: No <Ratna Balderrama PA-C - Last Filed: 07/21/21 15:11> Exam Narrative: GENERAL: Well-appearing, well-nourished, and in no acute distress. HEAD: Normocephalic, atraumatic. EYES: E
[2021-07-21 11:47] LABS: Prothrombin Time 13.5 Seconds (11.1-14.7)
[2021-07-21 11:48] LABS: Partial Thromboplastin Time 24.8 SECONDS (22.3-36.8)
[2021-07-21 11:52] LABS: Alanine Aminotransferase 16 U/L (4-35); Alkaline Phosphatase 109 U/L (38-126); Anion Gap 10 mmol/L (8-16); Aspartate Amino Transferase 23 U/L (14-36); Bilirubin,Total 0.6 mg/dL (0.2-1.3); Blood Urea Nitrogen 23 mg/dL (7-17); Calcium 9.3 mg/dL (8.4-10.2); Carbon Dioxide 20 mmol/L (22-30); Chloride 110 mmol/L (98-107); Estimated CRCL calculation 33 ml/min; Estimated Glomerular Filt Rate 48; Glucose 129 mg/dL (65-110); Lipase 90 U/L (23-300); Potassium 3.6 mmol/L (3.4-5.0); Sodium 140 mmol/L (137-145)
[2021-07-21 12:04] LABS: Troponin I < 0.012 ng/mL (0.000-0.034)
[2021-07-21 12:28] LABS: NT Pro B Type Natriuretic Pept 1530 pg/mL (5-100)
[2021-07-21 12:33] LABS: D Dimer 6.22 ug/mL (<0.48)
--- NOTE | 2021-07-21 12:37 | PC.NURSE ---
Facility Worker contacted [employer] about patient's pacemaker interrogation. [employer] to send rental sales representative out to interrogate patient's pacemaker.
--- NOTE | 2021-07-21 12:52 | PC.NURSE ---
Called by [employer] merchandising representative and he informed technical report writer that patient's pacemaker reading was clear and he is faxing it over to our fax machine.
--- NOTE | 2021-07-21 13:56 | PC.NURSE ---
Patient ambulated with database report writer back to her ED room without difficulty. Patient reconnected to pulse ox, blood pressure, and cardiac monitors. Call light in reach and patient denies any another needs.
[2021-07-21 14:41] LABS: Troponin I < 0.012 ng/mL (0.000-0.034)
--- NOTE | 2021-07-21 17:33 | PC.NURSE ---
unit technician order pt room tray @ [phone]
[2021-07-21 18:07] LABS: Troponin I < 0.012 ng/mL (0.000-0.034)
[2021-07-21] MEDS: ENOXAPARIN 80 MG/0.8 ML SYRINGE 65 MG SUB-Q (18:30)
--- NOTE | 2021-07-21 19:44 | ADMGEN ---
This patient, Ml Wells, was admitted to 2 Medical Room 252-01 @1930. Patient/family oriented to hospital policies and general routines including ID bracelet, bed and alarms, visiting hours, pain management, procedures, bathroom and other care routines, personal items, smoking policy, room service/diet, and visiting hours. Information on how to activate the Rapid Response Team has been discussed. Patient/Family are encouraged to report perceived risks to care and to ask questions if they do not understand what they are told or what they should do.
--- NOTE | 2021-07-21 22:50 | PM.IMHP ---
H&P: HPI History of Present Illness Date/Time: 07/21/21 22:50 this is a 80-year-old female patient who has had increasing shortness of breath for the last week. Floor still with exertion. The patient stated when she does any activity he become short of breath. She stated that she was not able to sing in worship today because it made her short of breath. She has no lower extremity edema. The patient was taken off the diuretics couple months ago. The patient recently had COVID-19 and her other symptoms had resolved. Venous Dopplers were negative for DVT. Chest CT was read as 1. Positive for several small right-sided segmental pulmonary emboli, low clot burden. 2. Cardiomegaly. Small right, trace left pleural effusions. Subsegmental atelectasis. 3. Mildly indistinct gallbladder wall, without calcified cholelithiasis, gallbladder distention. the patient was given an aspirin and subQ Lovenox. White count 13.0 H&H is 9.9 and 31.0. Platelet 408. D-dimer 6.22. BUN 23 creatinine 1.1. Glucose 129. GFR 48. Troponin negative x3. BNP 1530. The patient is being admitted to observation status on the date of service of 07/13/2021. Chief Complaint: Dyspnea on exertion Review of Systems Review of Systems: All systems reviewed & are unremarkable except as noted in HPI and below Constitutional: Constitutional: Reports as per HPI and Reports no additional constitutional complaints Eyes: Eyes: Reports as per HPI and Reports no additional eye complaints ENT: Reports system reviewed and no additional complaints, except as documented and Reports Normal hearing present Cardiovascular: Cardiovascular: Reports no additional cardiovascular complaints Respiratory: Respiratory: Reports no additional respiratory complaints and Reports no additional respiratory complaints Gastrointestinal: Gastrointestinal: Reports as per HPI and Reports no additional gastrointestinal complaints Musculoskeletal: Musculoskeletal: Reports no additional musculoskeletal complaints Integumentary/Breasts: Skin/Breast: Reports system reviewed and no additional complaints, except as docu and Reports as per HPI Neurologic: Reports system reviewed and no additional complaints, except as documented, Reports as per HPI and Reports Normal hearing present Psychiatric: Psychiatric: Reports no additional psychiatric complaints and Reports as per HPI Endocrine: Endocrine: Reports no additional endocrine complaints Hematologic/Lymphatic: Hematologic/Lymphatic: Reports no additional hematologic/lymphatic complaints Allergic/Immunologic: Allergic/Immunologic: Reports no additional allergic/immunologic complaints [facility] Past Medical History Medical History (Updated 07/21/21 @ 23:04 by Jumana Oneal NP) Body mass index (bmi) 25.0-25.9, adult (02/25/19) Chronic GERD Dizziness Dyslipidemia Essential hypertension History of IBS History of mitral valve prolapse Hx of cardiac pacemaker Hyperlipidemia Osteoarthritis Surgical History Surgical History History of colon resection Family History Family History Father Cerebrovascular accident, Onset Age: 88 Mother Family history of arthritis, Onset Age: 85 Social History Social History (Updated 07/21/21 @ 22:57 by Jumana Oneal NP) Social History: the patient lives with her and he is the durable power transactional attorney for healthcare. The patient has no children. 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 She does not use any alcohol marijuana or illicit drugs. Code status full code Smoking status: Never smoker Second hand tobacco smoke exposure: Yes Alcohol intake: never Substance use: never Substance use type: does not use Gender identity (if verbalized by the patient): Male Spiritual care concerns: No Meds Shukri
[2021-07-22] VITALS (8 sets, daily range): BP systolic 138–143; BP diastolic 53–63; PULSE 70–98; RESP 16–20; TEMP 36.3–36.4; O2SAT 98–100
--- NOTE | 2021-07-22 | ECHO_ITS ---
Patient Info Name: Ml Wells Age: 80 years : 1940 Gender: Female Ht: 62 in Wt: 150 lbs BSA: 1.74 m2 HR: 97 bpm BP: 130 / 70 mmHg Technical Quality: Good Exam Date: 07/22/2021 9:34 AM Exam Location: [facility] Exam Room: 252 Patient Status: Inpatient Admit Date: 07/21/2021 Staff Ordering Physician: Jumana Oneal NP Laboratory Assistant: Batsheva Morris RDCS Attending Provider: Raina Kohler MD Referring Physician: Kimmy AWAD; Exam Type: CA echo doppler color flow Study Info Indications - PE SOB PPM Complete two-dimensional, color flow and Doppler transthoracic echocardiogram is performed. Summary 1. Complete two-dimensional, color flow and Doppler transthoracic echocardiogram is performed. 2. Left ventricular chamber dimension is normal. 3. Ventricular septum is sigmoid shaped. No LVOT obstruction. 4. Left ventricular systolic function is normal, estimated at 65-70%. 5. There is mildly increased left ventricular wall thickness. 6. The left ventricular diastolic function is grade I diastolic dysfunction. 7. E/e' 18 is elevated. 8. Linear artifact in right ventricle suggestive of catheter(s), pacemaker lead(s), or ICD lead(s). 9. Left atrial chamber dimension is moderately enlarged. 10. Linear artifact in the right atrium suggestive of catheter(s), pacemaker lead(s), or ICD lead(s). 11. There is moderate aortic valve sclerosis. 12. The mitral valve has severe posterior calcified annulus. 13. There is mild mitral valve regurgitation. 14. There is mild tricuspid valve regurgitation. 15. Mild pulmonary hypertension, estimated pulmonary arterial systolic pressure is 40 mmHg. 16. There is trace pulmonic regurgitation. Left Ventricle E/e' 18 is elevated. Ventricular septum is sigmoid shaped. No LVOT obstruction. Left ventricular chamber dimension is normal. Left ventricular systolic function is normal, estimated at 65-70%. There is mildly increased left ventricular wall thickness. The left ventricular diastolic function is grade I diastolic dysfunction. Right Ventricle Linear artifact in right ventricle suggestive of catheter(s), pacemaker lead(s), or ICD lead(s). Right ventricular chamber dimension is normal. Right ventricular systolic function is normal. Left Atria Left atrial chamber dimension is moderately enlarged. Right Atria Linear artifact in the right atrium suggestive of catheter(s), pacemaker lead(s), or ICD lead(s). Right atrial chamber dimension is normal. Aortic Valve The aortic valve is trileaflet. There is moderate aortic valve sclerosis. There is no aortic valve stenosis. There is no aortic valve regurgitation. Pulmonic Valve There is trace pulmonic regurgitation. Mitral Valve The mitral valve has severe posterior calcified annulus. There is no mitral valve stenosis. There is mild mitral valve regurgitation. Tricuspid Valve There is mild tricuspid valve regurgitation. Mild pulmonary hypertension, estimated pulmonary arterial systolic pressure is 40 mmHg. Pericardium/Pleural There is no pericardial effusion. Inferior Vena Cava Normal inferior vena cava with >50% collapse upon inspiration consistent with normal right atrial pressure, 5 mmHg. Aorta The aortic root size at the sinus of Valsalva is normal. Left Ventricular Outflow Tract Name Value Normal
--- NOTE | 2021-07-22 03:51 | PC.NURSE ---
At 0317 and 0329 tele alarmed Asystole. Can see pacer spikes. Immediately checked on pt. She was easily aroused with no complaints. Asymptomatic. Upon waking her up HR went into the 60's. Notified nursing supervisor histology Roxi Parker RN to review telemetry and she thinks patients axis flipped and if it happens again palpate her pulse and see if you can feel her pulse. Will monitor closely. Checked pt's vitals and they are WNL. T=97.5, P=76, R=20, NA=258/63 100% on room air.
[2021-07-22 05:50] LABS: Basophils Percent Auto 0.3 % (0.2-1.2); Eosinophils Percent Auto 0.5 % (0-4.4); Hematocrit 26.5 % (37.0-47.0); Hemoglobin 8.4 g/dL (12.0-15.0); Immature Granulocyte Absolute 0.01 K/mm3 (0.00-0.031); Immature Granulocyte Percent A 0.2 % (0-0.5); Lymphocytes Percent Auto 17.2 % (18.3-44.2); Mean Corpuscular HGB Conc 31.7 g/dl (32-36); Mean Corpuscular Hemoglobin 28.3 pg (26-34); Mean Corpuscular Volume 89.2 fl (80-100); Mean Platelet Volume 8.8 fl (7.4-10.4); Monocytes Absolute Auto 0.8 K/mm3 (0.1-0.6); Monocytes Percent Auto 12.1 % (2.6-8.5); Neutrophils Absolute Auto 4.5 K/mm3 (1.3-6.7); Neutrophils Percent Auto 69.7 % (45.5-73.1); Platelet Count Result 320 k/mm3 (150-375); Red Blood Count 2.97 M/mm3 (4.2-5.4); Red Cell Distribution Width 13.8 % (11.5-14.5); White Blood Count 6.4 K/mm3 (4.5-10.0)
[2021-07-22 05:58] LABS: Lactic Acid Reflex 0.9 mmol/L (0.7-2.1)
[2021-07-22 06:02] LABS: Alanine Aminotransferase 13 U/L (4-35); Albumin Level 3.2 g/dL (3.5-5.1); Alkaline Phosphatase 84 U/L (38-126); Anion Gap 5 mmol/L (8-16); Aspartate Amino Transferase 19 U/L (14-36); Bilirubin,Total 0.6 mg/dL (0.2-1.3); Blood Urea Nitrogen 22 mg/dL (7-17); Calcium 8.7 mg/dL (8.4-10.2); Carbon Dioxide 24 mmol/L (22-30); Chloride 111 mmol/L (98-107); Estimated CRCL calculation 33 ml/min; Estimated Glomerular Filt Rate 48; Glucose 91 mg/dL (65-110); Lactate Dehydrogenase 620 U/L (313-618); Potassium 3.9 mmol/L (3.4-5.0); Sodium 140 mmol/L (137-145)
[2021-07-22] MEDS: ENOXAPARIN 80 MG/0.8 ML SYRINGE 68 MG SUB-Q ×2 (09:10→21:06)
[2021-07-22] MEDS: LOSARTAN POTASSIUM 50 MG TABLET PO (09:11)
[2021-07-22] MEDS: amLODIPine BESYLATE 5 MG TABLET PO (09:11)
[2021-07-22] MEDS: PANTOPRAZOLE 40 MG TABLET PO ×2 (09:12→17:51)
[2021-07-22] MEDS: OMEGA 3 POLYUNSAT FATTY ACIDS 1 GM CAP 2 GM PO (09:12)
[2021-07-22 09:25] LABS: IFOB Positive Control Positive; Immunochemical Fecal Occult Bl Positive (N)
--- NOTE | 2021-07-22 10:19 | PM.IMPN ---
Progress Note: A&P Assessment and Plan (1) Pulmonary emboli: Qualifiers: Pulmonary embolism type: multiple subsegmental (without acute cor pulmonale) Qualified Code(s): I26.94 - Multiple subsegmental pulmonary emboli without acute cor pulmonale Code(s): I26.99 - Other pulmonary embolism without acute cor pulmonale Status: Acute Assessment and Plan: Continue with Lovenox No signs of current active bleeding Pt has hx of anemia, monitor a H&H closely Transitioned to Eliquis or Xarelto pending insurance On RA Dopplers were negative for DVT Echo results pending (2) Anemia: Qualifiers: Anemia type: unspecified type Qualified Code(s): D64.9 - Anemia, unspecified Code(s): D64.9 - Anemia, unspecified Status: Acute Assessment and Plan: Chronic Hgb 8.4 Check iron panel Transfuse if <7 Monitor (3) Hyperlipidemia: Code(s): E78.5 - Hyperlipidemia, unspecified Status: Chronic Assessment and Plan: Continue with [place] 3 and pravastatin (4) Essential hypertension: Code(s): I10 - Essential (primary) hypertension Status: Chronic Assessment and Plan: Continue amlodipine and losartan Monitor (5) Chronic GERD: Code(s): K21.9 - Gastro-esophageal reflux disease without esophagitis Status: Chronic Assessment and Plan: Continue pantoprazole Subjective Date/time seen: 07/22/21 10:19 Interval history: Pt seen and evaluated; labs, vs, diagnostic reports reviewed; pt denies any SOB or CP; ECHO in progress Review of Systems Review of Systems: All systems reviewed & are unremarkable except as noted in HPI and below Exam Const: General: no acute distress, alert and awake Orientation/consciousness: patient oriented x3 HENMT: Head: normocephalic and atraumatic Ears: hearing grossly normal bilaterally and external ears normal Face and sinus: face symmetric Mouth: Yes Normal oral and palatal mucosa present Eyes: EOM: EOMs intact bilaterally Neck: Neck: full ROM, trachea midline and no JVD Chest: Chest palpation & inspection: normal inspection of the chest Resp: Effort & Inspection: normal respiratory effort Auscultation: clear to auscultation bilaterally Cardio: Jugular venous distension: no JVD Rate: regular rate Rhythm: regular rhythm Heart sounds: S1 normal heart sound present and S2 normal heart sound present GI: Inspection: normal to inspection GI Palp: Yes Soft to palpation Percussion: Yes normal to percussion Auscultation: normal bowel sounds : General: Yes no CVA tenderness Skin: General skin exam: normal color Rashes: no rashes Neuro: General: patient oriented x3 and no focal motor deficits Speech: normal speech Extrem: General: no clubbing, cyanosis or edema Psych: Appearance: grossly normal Affect: normal affect Judgement: Good judgement present (Psych) Objective Data Vital Signs Vital Signs: Vital Signs - 24 hr 07/21/21 11:19 07/21/21 11:45 07/21/21 12:01 Temperature Pulse Rate 96 80 76 Respiratory Rate 24 H 21 H Blood Pressure 176/88 H 136/65 Pulse Oximetry 90 100 99 07/21/21 12:31 07/21/21 13:16 07/21/21 14:43 Temperature Pulse Rate 74 76 82 Respiratory Rate 18 15 15 Blood Pressure 135/69 145/72 H Pulse Oximetry 100 100 98 07/21/21 15:27 07/21/21 15:31 07/21/21 15:46 Temperature Pulse Rate 91 87 82 Respiratory Rate 25 H 13 15 Blood Pressure 109/71 136/103 H 158/70 H Pulse Oximetry 98 100 99 07/21/21 16:01 07/21/21 16:31 07/21/21 20:00 Temperature Pulse Rate 80 82 78 Respiratory Rate 20 17 Blood Pressure 156/73 H 157/70 H Pulse Oximetry 99 07/21/21 22:00 07/21/21 22:55 07/22/21 00:00 Temperature 37.0 C Pulse Rate 85 72 71 Respiratory Rate 20 Blood Pressure 130/70 Pulse Oximetry 98 98 07/22/21 04:00 07/22/21 06:00 Temperature 36.4 C L Pulse Rate 75 76 Respiratory Rate 20 Blood Pressure 139/63 Puls
[2021-07-22] MEDS: PRAVASTATIN SODIUM 20 MG TABLET 40 MG PO (17:51)
[2021-07-23] VITALS (11 sets, daily range): BP systolic 120–147; BP diastolic 59–68; PULSE 64–83; RESP 16–20; TEMP 36.4–37.1; O2SAT 98–100
[2021-07-23 06:06] LABS: Hematocrit 27.4 % (37.0-47.0); Hemoglobin 8.7 g/dL (12.0-15.0); Mean Corpuscular HGB Conc 31.8 g/dl (32-36); Mean Corpuscular Hemoglobin 28.6 pg (26-34); Mean Corpuscular Volume 90.1 fl (80-100); Mean Platelet Volume 8.9 fl (7.4-10.4); Platelet Count Result 335 k/mm3 (150-375); Red Blood Count 3.04 M/mm3 (4.2-5.4); Red Cell Distribution Width 13.8 % (11.5-14.5); White Blood Count 6.5 K/mm3 (4.5-10.0)
[2021-07-23 06:27] LABS: Anion Gap 0 mmol/L (8-16); Blood Urea Nitrogen 25 mg/dL (7-17); Calcium 8.4 mg/dL (8.4-10.2); Carbon Dioxide 26 mmol/L (22-30); Chloride 112 mmol/L (98-107); Estimated CRCL calculation 37 ml/min; Estimated Glomerular Filt Rate 53; Glucose 94 mg/dL (65-110); Potassium 3.7 mmol/L (3.4-5.0); Sodium 138 mmol/L (137-145)
[2021-07-23 06:42] LABS: Iron 27 ug/dL (37-170)
[2021-07-23 06:51] LABS: Percent Iron Saturation 9 % (20-50)
--- NOTE | 2021-07-23 09:10 | WPDGICN ---
Assessment and Plan Additional Plan GI Consultation Dr. Michaels for Dr. 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 Patient is seen at the request of the Hospitalist service to evaluate for iron deficiency anemia and heme positive stool. The patient?s primary care provider is Dr. Elis Norwood. Primary GI is Dr. Alvarado Wisdom. Patient had chronic diarrhea resolved with Metamucil. Her SOB is much improved and patient is sitting in bed without O2. She otherwise denies abdominal pain, nausea or vomiting, trouble swallowing, bloating, loss of appetite or weight, early satiety, heartburn (on meds), diarrhea or constipation, rectal bleeding or melena. Patient denies fever, jaundice, scleral icterus, dark urine, light stool, itching, hot or cold intolerance, chest pain, hematuria, dysuria, new cough or visual changes, easy bruising, tingling of the skin, bone pain or tremors. No history of endocarditis, rheumatic fever, dental prophylaxis, heart valve surgery, bleeding disorder or joint replacement. NKDA Medications: see list but includes aspirin 81, meloxicam, Pepcid 20 mg po q am and protonix 40 mg hs. Social history: nonsmoker, nondrinker. Family history: negative for GI malignancy. Last colonoscopy was 5-[address] Wisdom, unremarkable. Physical exam: No lower extremity edema, jaundice, spider angioma, palmar erythema. Skull is normocephalic atraumatic. Sclera are non-icteric. Oropharynx is clear. Neck is supple without thyromegaly. Lungs are clear. Heart is rate and rhythm regular. S1 and S2 normal. Normal active bowel sounds. Non-tender, non-rigid, non-distended without hepatosplenomegaly or masses. No guarding. Rectal is deferred. Neuro is conscious and alert ?3. Labs: 07-23-2021 Hct 27. Cr 1.0. Fe 27, TIBC 301, %sat 9 07-22-2021 Hct 27. LFT's normal. TSH 1.3. Stool heme positive. Ferritin 10 07-21-2021 Hct 31, WBC 13, MCV 89. INR 1.0, PTT 25 03-21-2021 Hct 35, MCV 94 Imaging: N/C Assessment and plan: A. Iron deficiency anemia and heme positive stool in patient on aspirin and meloxicam in setting of PE and history of some type of colon tumor 50 years ago: - No overt evidence of GI bleed - Patient will need chronic anticoagulant - Concern for upper and lower GI source of blood loss - Will observe today and Dr. Wisdom can evaluate for possible EGD and colonoscopy next week - IV iron now-> po as OP - Care with aspirin and NSAIDS - Consider checking B12, folate and retic count B. GERD: Would continue Pepcid 20 mg po q am and pantoprazole 40 mg po hs. Thank you very much for allowing me to share in the care of your patient. Further recommendations per Dr. Wisdom. Yobani Michaels M.D. (c) [phone] Cc: Dr. Elis Norwood; Dr. Alvarado Wisdom GI Consult Note Consult date/time: 07/23/21 09:10 HPI: Ml Wells is a 80 year old female [facility] Past Medical History Medical History (Updated 07/21/21 @ 23:04 by Jumana Oneal NP) Body mass index (bmi) 25.0-25.9, adult (02/25/19) Chronic GERD Dizziness Dyslipidemia Essential hypertension History of IBS History of mitral valve prolapse Hx of cardiac pacemaker Hyperlipidemia Osteoarthritis Surgical History Surgical History History of colon resection Family History Family History Father Cerebrovascular accident, Onset Age: 88 Mother Family history of arthritis, Onset Age: 85 Social History Social History (Updated 07/21/21 @ 22:57 by Jumana Oneal NP) Social History: the patient lives with her and he is the durable power state's attorney for healthcare. The patient has no children. The patient used
[2021-07-23] MEDS: PANTOPRAZOLE 40 MG TABLET PO ×2 (09:29→17:07)
[2021-07-23] MEDS: ENOXAPARIN 80 MG/0.8 ML SYRINGE 68 MG SUB-Q ×2 (09:29→17:07)
[2021-07-23] MEDS: LOSARTAN POTASSIUM 50 MG TABLET PO (09:29)
[2021-07-23] MEDS: OMEGA 3 POLYUNSAT FATTY ACIDS 1 GM CAP 2 GM PO (09:29)
[2021-07-23] MEDS: amLODIPine BESYLATE 5 MG TABLET PO (09:29)
--- NOTE | 2021-07-23 12:49 | PM.IMPN ---
Progress Note: A&P Assessment and Plan (1) Pulmonary emboli: Qualifiers: Pulmonary embolism type: multiple subsegmental (without acute cor pulmonale) Qualified Code(s): I26.94 - Multiple subsegmental pulmonary emboli without acute cor pulmonale Code(s): I26.99 - Other pulmonary embolism without acute cor pulmonale Status: Acute Assessment and Plan: Continue with Lovenox No signs of current active bleeding Pt has hx of anemia, monitor a H&H closely Transitioned to Eliquis or Xarelto pending insurance On RA Dopplers were negative for DVT Echo results-->EF 65-70%, grade I diastolic dysfunction, moderate aortic valve sclerosis, mild pulmonary hypertension (2) Anemia: Qualifiers: Anemia type: unspecified type Qualified Code(s): D64.9 - Anemia, unspecified Code(s): D64.9 - Anemia, unspecified Status: Acute Assessment and Plan: Chronic, iron deficiency Hgb 8.4-->8.7 Check iron panel Transfuse if <7 Iron studies reviewed Stool guaiac +Monitor GI consulted, recommendations appreciated IV iron while inpatient, po at d/c Follow up with Dr. Wisdom o/p for possible EGD/colonoscopy Will check B12, folate, and retic count (3) Hyperlipidemia: Code(s): E78.5 - Hyperlipidemia, unspecified Status: Chronic Assessment and Plan: Continue with [place] 3 and pravastatin (4) Essential hypertension: Code(s): I10 - Essential (primary) hypertension Status: Chronic Assessment and Plan: Continue amlodipine and losartan Monitor (5) Chronic GERD: Code(s): K21.9 - Gastro-esophageal reflux disease without esophagitis Status: Chronic Assessment and Plan: Continue pantoprazole (6) Grade I diastolic dysfunction: Code(s): I51.89 - Other ill-defined heart diseases Status: Acute Assessment and Plan: Echo results-->EF 65-70%, grade I diastolic dysfunction, moderate aortic valve sclerosis, mild pulmonary hypertension Pt is followed by Dr. Varghese outpatient Recommend follow up o/p for comparison to previous Echo Subjective Date/time seen: 07/23/21 12:49 Interval history: 07/22 Pt seen and evaluated; labs, vs, diagnostic reports reviewed; pt denies any SOB or CP; ECHO in progress 07/23 Pt seen and evaluated; she states she feels better and is eager to walk; ECHO reviewed Review of Systems Review of Systems: All systems reviewed & are unremarkable except as noted in HPI and below Exam Const: General: no acute distress, alert and awake Orientation/consciousness: patient oriented x3 HENMT: Head: normocephalic and atraumatic Ears: hearing grossly normal bilaterally and external ears normal Face and sinus: face symmetric Mouth: Yes Normal oral and palatal mucosa present Eyes: EOM: EOMs intact bilaterally Neck: Neck: full ROM, trachea midline and no JVD Chest: Chest palpation & inspection: normal inspection of the chest Resp: Effort & Inspection: normal respiratory effort Auscultation: clear to auscultation bilaterally Cardio: Jugular venous distension: no JVD Rate: regular rate Rhythm: regular rhythm Heart sounds: S1 normal heart sound present, S2 normal heart sound present and Other heart sounds present (PPM) GI: Inspection: normal to inspection Auscultation: normal bowel sounds : General: Yes no CVA tenderness Back/Spine/Pelvis: Back: no CVA tenderness Skin: General skin exam: normal color Rashes: no rashes Neuro: General: patient oriented x3 and no focal motor deficits Speech: normal speech Extrem: General: no clubbing, cyanosis or edema Psych: Appearance: grossly normal Affect: normal affect Judgement: Good judgement present (Psych) Objective Data Vital Signs Vital Signs: Vital Signs - 24 hr 07/22/21 14:24 07/22/21 16:00 07/22/21 20:00 Temperature 36.3 C L Pulse Rate 74 74 70 Respiratory Rate 16 Blood Pressure 143/62 H Pulse Oximetry 100 07/22/21 22:00
[2021-07-23] MEDS: PRAVASTATIN SODIUM 20 MG TABLET 40 MG PO (17:06)
[2021-07-24] VITALS (9 sets, daily range): BP systolic 128–130; BP diastolic 54–69; PULSE 64–102; RESP 14–15; TEMP 36.4–36.6; O2SAT 99–100
[2021-07-24] MEDS: ENOXAPARIN 80 MG/0.8 ML SYRINGE 68 MG SUB-Q ×2 (08:14→20:36)
[2021-07-24] MEDS: POTASSIUM CHLORIDE 10 MEQ TABLET.ER PO (08:14)
[2021-07-24] MEDS: OMEGA 3 POLYUNSAT FATTY ACIDS 1 GM CAP 2 GM PO (08:14)
[2021-07-24] MEDS: PANTOPRAZOLE 40 MG TABLET PO ×2 (08:14→18:10)
[2021-07-24] MEDS: amLODIPine BESYLATE 5 MG TABLET PO (08:14)
[2021-07-24] MEDS: LOSARTAN POTASSIUM 50 MG TABLET PO (08:14)
[2021-07-24 08:52] LABS: Immature Reticulocyte Fraction 18.7 % (3.0-15.9); Reticulocyte Hemoglobin Conten 28.6 pg (28.2-35.7); Reticulocyte Percent 1.84 % (0.7-4.3); Reticulocytes Absolute 0.06 B/L (32.2-175.7)
--- NOTE | 2021-07-24 10:34 | PM.IMPN ---
Progress Note: A&P Assessment and Plan (1) Pulmonary emboli: Qualifiers: Pulmonary embolism type: multiple subsegmental (without acute cor pulmonale) Qualified Code(s): I26.94 - Multiple subsegmental pulmonary emboli without acute cor pulmonale Code(s): I26.99 - Other pulmonary embolism without acute cor pulmonale Status: Acute Assessment and Plan: CTA showed several small right-sided segmental pulmonary emboli, low clot burden continue Lovenox. no evidence of active bleeding. Will monitor H&H prior to Lovenox injections this evening to ensure remaining stable will await EGD and colonoscopy reports prior to initiating DOAC. care coordination following to ari oHgan venous Doppler negative for DVT echo results reviewed. No evidence of heart strain troponin negative. BNP only mildly elevated but reasonable for her age (2) Anemia: Qualifiers: Anemia type: unspecified type Qualified Code(s): D64.9 - Anemia, unspecified Code(s): D64.9 - Anemia, unspecified Status: Acute Assessment and Plan: Hgb ranging 8.5-9.5. Iron panel consistent with early iron deficiency. Stool occult blood test positive Appreciate GI consultation Planning for EGD colonoscopy tomorrow No active bleeding. Vital signs are stable. B12 normal, folate pending Repeat H&H this evening to ensure remaining stable, especially with need for anticoagulation due to PE (3) Essential hypertension: Code(s): I10 - Essential (primary) hypertension Status: Chronic Assessment and Plan: blood pressure reviewed and has been generally well controlled. 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 Varghese appears clinically compensated at this time monitor volume status closely Subjective Date/time seen: 07/24/21 10:34 Interval history: Date of service: 07/24/2021 Ml Wells is a 80-year-old female with a history of hypertension, hyperlipidemia, GERD, colon cancer s/p partial colectomy, hemorrhoidectomy, cardiac pacemaker who is seen in follow-up for pulmonary embolism and anemia with Hemoccult-positive stools. she feels okay today. Stated her symptoms started 3 days ago with shortness of breath and she had been feeling weak. Also developed a cough which she reports persists but is overall improved. Cough is nonproductive. Denies hemoptysis. She does report feeling weak. She reports a history of chronic loose stools that are typically improved with Metamucil. She has not been taking Metamucil since her hospitalization and this morning had an incontinent liquid stool. she also noticed some pinkish/red blood in the toilet bowl after having a bowel movement. denies dark or tarry stools. Denies hematemesis. she denies chest pain, pleuritic pain, PND, orthopnea, wheezing. no dizziness, lightheadedness. Denies palpitations. Review of Systems Review of Systems: All systems reviewed & are unremarkable except as noted in HPI and below Exam Narrative: Ms. Wells is a well-nourished, well-appearing 80-year-old female who is sitting up in bed. She appears comfortable and is in NARD. Neuro: awake, alert and oriented x4, speech clear, no focal neuro deficits noted HEENMT: normocephalic, atraumatic, EOMI, sclerae anicteric Neck: supple, no lymphadenopathy Respiratory: clear to auscultation bilaterally, nonlabored breathing Cardio: regular rate, regular rhythm wit
[2021-07-24 10:54] LABS: Hematocrit 32.1 % (37.0-47.0); Hemoglobin 9.9 g/dL (12.0-15.0)
--- NOTE | 2021-07-24 12:15 | WPDGIPROGNO ---
Progress Note: A&P Assessment and Plan (1) CHRISTIANO (iron deficiency anemia): Code(s): D50.9 - Iron deficiency anemia, unspecified Status: Acute Assessment and Plan: Patient with iron deficient indices. Stool now confirmed to be Hemoccult-positive. Plan is for GI evaluation including colonoscopy an EGD prior to anticoagulation for her PE. Preparation today with endoscopy anticipated tomorrow. (2) Pulmonary emboli: Qualifiers: Pulmonary embolism type: multiple subsegmental (without acute cor pulmonale) Qualified Code(s): I26.94 - Multiple subsegmental pulmonary emboli without acute cor pulmonale Code(s): I26.99 - Other pulmonary embolism without acute cor pulmonale Status: Acute Assessment and Plan: Patient found to have pulmonary emboli. Will need anticoagulation. Plan to do colonoscopy an EGD to to use sermon safety of anticoagulation initially. (3) History of colon resection: Code(s): Z90.49 - Acquired absence of other specified parts of digestive tract Status: Acute Assessment and Plan: Patient gives a history of a partial colon resection for a tumor of the colon in the past. This will be re-evaluated time of endoscopy. Subjective Date/time seen: 07/24/21 12:15 Patient alert comfortable this morning. No obvious bleeding described. Denies any leg swelling. Much less short of breath today than yesterday. She does give a history of partial colectomy for a tumor in the colon many years ago. Review of Systems Review of Systems: All systems reviewed & are unremarkable except as noted in HPI and below Exam Narrative: Physical exam reveals patient be alert. Vital signs stable. HEENT exam reveals no icterus. Lungs are clear. Heart without murmur. Abdomen bowel sounds present soft nontender with no organomegaly. Extremities revealed no edema in her legs. Objective Data Vital Signs Vital Signs: Vital Signs - 24 hr 07/23/21 14:00 07/23/21 16:00 07/23/21 19:50 Temperature 97.6 F 97.9 F Pulse Rate 83 73 75 Respiratory Rate 16 18 Blood Pressure 120/61 147/68 H Pulse Oximetry 99 98 07/23/21 20:00 07/24/21 00:00 07/24/21 04:00 Temperature Pulse Rate 74 70 64 Respiratory Rate Blood Pressure Pulse Oximetry 07/24/21 05:41 07/24/21 08:00 Temperature 97.5 F L Pulse Rate 72 75 Respiratory Rate 14 Blood Pressure 128/69 Pulse Oximetry 100 Intake/Output Intake/Output: Intake & Output 07/21/21 07/22/21 07/23/21 07/24/21 23:59 23:59 23:59 23:59 Intake Total 840 1450 540 Output Total 1300 575 500 Balance -460 875 40 Meds/Results Medications: Active Medications Generic Name Dose Route Start Last Admin Trade Name Freq PRN Reason Stop Dose Admin Acetaminophen 650 mg 07/21/21 23:02 Acetaminophen 325 Mg Tablet PO Q4H PRN Pain Amlodipine Besylate 5 mg 07/22/21 09:00 07/24/21 08:14 Amlodipine Besylate 5 Mg Tablet PO 5 mg DAILY MIS Administration Enoxaparin Sodium 68 mg 07/22/21 09:00 07/24/21 08:14 Enoxaparin 80 Mg/0.8 Ml Syringe SUB-Q 68 mg Q12HR MIS Administration Fish Oil 2 gm 07/22/21 09:00 07/24/21 08:14 [place] 3 Polyunsat Fatty Acids 1 Gm Cap PO 2 gm DAILY MIS Administration Losartan Potassium 50 mg 07/22/21 09:00 07/24/21 08:14 Losartan Potassium 50 Mg Tablet PO 50 mg DAILY MIS Administration Pantoprazole Sodium 40 mg 07/22/21 09:00 07/24/21 08:14 Pantoprazole 40 Mg Tablet PO 40 mg BID MIS Administration Perflutren Lipid Microsphere 0 ml 07/21/21 23:00 Perflutren Lipid Microspheres 1.5 Ml Vial Diluted To 10 Ml Total Volume IV PUSH ONCE PRN adequate visualization Protocol Potassium Chloride 10 meq 07/24/21 09:00 07/24/21 08:14 Potassium Chloride 10 Meq Tablet.Er PO 10 meq [id number] MIS Administration Pravastatin Sodium 40 mg 07/22/21 18:00 07/23/21 17:06 Pravastatin Sodium 20 Mg Tablet PO
[2021-07-24] MEDS: PEG (High)/E-LYTE SOLN 4,000 ML BTL 4000 ML PO (15:20)
[2021-07-24 16:37] LABS: Glucose Point of Care 169 mg/dl (65-105)
[2021-07-24] MEDS: PRAVASTATIN SODIUM 20 MG TABLET 40 MG PO (18:09)
[2021-07-24 18:46] LABS: Hematocrit 33.9 % (37.0-47.0); Hemoglobin 10.4 g/dL (12.0-15.0)
[2021-07-25] VITALS (13 sets, daily range): BP systolic 94–171; BP diastolic 48–74; PULSE 67–87; RESP 14–20; TEMP 36.1–36.7; O2SAT 97–100
[2021-07-25 05:36] LABS: Hematocrit 27.6 % (37.0-47.0); Hemoglobin 8.7 g/dL (12.0-15.0); Mean Corpuscular HGB Conc 31.5 g/dl (32-36); Mean Corpuscular Hemoglobin 28.8 pg (26-34); Mean Corpuscular Volume 91.4 fl (80-100); Mean Platelet Volume 9.1 fl (7.4-10.4); Platelet Count Result 336 k/mm3 (150-375); Red Blood Count 3.02 M/mm3 (4.2-5.4); Red Cell Distribution Width 13.8 % (11.5-14.5); White Blood Count 7.7 K/mm3 (4.5-10.0)
[2021-07-25 06:00] LABS: Anion Gap 6 mmol/L (8-16); Blood Urea Nitrogen 23 mg/dL (7-17); Calcium 8.2 mg/dL (8.4-10.2); Carbon Dioxide 23 mmol/L (22-30); Chloride 110 mmol/L (98-107); Estimated CRCL calculation 37 ml/min; Estimated Glomerular Filt Rate 53; Glucose 98 mg/dL (65-110); Potassium 3.6 mmol/L (3.4-5.0); Sodium 139 mmol/L (137-145)
[2021-07-25] MEDS: amLODIPine BESYLATE 5 MG TABLET PO (08:38)
[2021-07-25] MEDS: PANTOPRAZOLE 40 MG TABLET PO ×2 (08:38→16:32)
[2021-07-25] MEDS: LACTATED RINGERS 1,000 ML 150 ML IV CONT (10:39)
--- NOTE | 2021-07-25 11:01 | PM.IMPN ---
Progress Note: A&P Assessment and Plan (1) Pulmonary emboli: Qualifiers: Pulmonary embolism type: multiple subsegmental (without acute cor pulmonale) Qualified Code(s): I26.94 - Multiple subsegmental pulmonary emboli without acute cor pulmonale Code(s): I26.99 - Other pulmonary embolism without acute cor pulmonale Status: Inactive Assessment and Plan: CTA showed several small right-sided segmental pulmonary emboli, low clot burden continue therapeutic Lovenox will await EGD and colonoscopy reports prior to initiating DOAC. care coordination following to ari Hogan venous Doppler negative for DVT echo results reviewed. No evidence of heart strain troponin negative. BNP only mildly elevated but reasonable for her age (2) Anemia: Qualifiers: Anemia type: unspecified type Qualified Code(s): D64.9 - Anemia, unspecified Code(s): D64.9 - Anemia, unspecified Status: Acute Assessment and Plan: Hgb ranging 8.5-9.5. Iron panel consistent with early iron deficiency. Stool occult blood test positive. Patient reports blood in stool. Appreciate GI consultation Planning for EGD and colonoscopy this afternoon. Await results prior to initiating assisted anticoagulation fo PE Hgb 8.7 this morning B12 normal, folate pending (3) Essential hypertension: Code(s): I10 - Essential (primary) hypertension Status: Chronic Assessment and Plan: blood pressure reviewed and has been generally well controlled. 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 Varghese appears clinically compensated at this time monitor volume status closely Subjective Date/time seen: 07/25/21 11:01 Interval history: Date of service: 07/25/2021 Ml Wells is a 80-year-old female with a history of hypertension, hyperlipidemia, GERD, colon cancer s/p partial colectomy, hemorrhoidectomy, cardiac pacemaker who is seen in follow-up for pulmonary embolism and anemia with Hemoccult-positive stools. She feels well today she feels okay today. Tolerated colonoscopy prep. Reports several bowel movements with pinkish red blood. No N/V, fever, chills, dizziness, lighghteadedness, SOB, palpitations. Denies cough, pleuritic CP, hemoptysis. Review of Systems Review of Systems: All systems reviewed & are unremarkable except as noted in HPI and below Exam Narrative: Ms. Wells is a well-nourished, well-appearing 80-year-old female who is sitting up in bed. She appears comfortable and is in NARD. Neuro: awake, alert and oriented x4, speech clear, no focal neuro deficits noted HEENMT: normocephalic, atraumatic, EOMI, sclerae anicteric Neck: supple, no lymphadenopathy Respiratory: clear to auscultation bilaterally, nonlabored breathing Cardio: regular rate, regular rhythm with S1-S2 Abdomen: nondistended, normoactive bowel sounds, soft, nontender to palpation Extremities: no edema, erythema, or tenderness to palpation Skin: abdominal ecchymosis at site of injection, no rashes or lesions, warm and dry Psych: appropriate mood and affect, judgment and insight intact Objective Data Vital Signs Vital Signs: Vital Signs - 24 hr 07/24/21 12:00 07/24/21 14:00 07/24/21 16:00 Temperature 97.6 F Pulse Rate 78 82 102 H Respiratory Rate 15 Blood Pressure 130/54 L Pulse Oximetry 100 07/24/21 20:00 07/24/21 23:12 07/25/21 00:00 Temperature 97.9 F Pulse Rate 85 83
--- NOTE | 2021-07-25 11:07 | WPDANESEPPF ---
Anes - Initial Pre Proc Eval Procedure: Operation Date: 07/25/21 12:00 Proposed Procedures p Esophagogastroduodenoscopy & Colonoscopy - José Miguel Wisdom MD Date/Time: 07/25/21 11:07 Surgeon: Savannah Hsieh PA-C Pre Op Diagnosis: PE/anemia Patient Data Age: 80 Gender: F Height: 1.57 m Weight: 68.3 kg Last Vital Signs Temp 36.3 C L 07/25/21 10:34 Pulse 87 07/25/21 10:34 Resp 18 07/25/21 10:34 BP 171/71 H 07/25/21 10:34 Pulse Ox 100 07/25/21 10:34 Allergies Allergy/AdvReac Type Severity Reaction Status Date / Time No Known Allergies Allergy Verified 07/21/21 19:44 Home Medications Medication Instructions Recorded Confirmed Type acetaminophen 325 mg tablet 650 mg PO Q4H PRN tablet 08/25/19 07/21/21 History aspirin 81 mg tablet,delayed 81 mg PO DAILY 08/25/19 07/21/21 History release potassium chloride 10 mEq 10 meq PO 3XW 08/25/19 07/21/21 History capsule,extended release pravastatin 40 mg tablet 40 mg PO QPM 08/25/19 07/21/21 History pantoprazole 40 mg tablet,delayed 40 mg PO BID 02/09/20 07/21/21 History release amlodipine 5 mg tablet 5 mg PO DAILY 08/08/20 07/21/21 History famotidine 20 mg tablet 20 mg PO DAILY 08/08/20 07/21/21 History losartan 50 mg tablet 50 mg PO DAILY 08/08/20 07/21/21 History meloxicam 15 mg PO DAILY 07/21/21 07/21/21 History omega 4-ren-vie-fish oil [Fish Oil] 2 cap PO DAILY 07/21/21 07/21/21 History Laboratory Tests 07/24/21 07/24/21 07/25/21 16:09 18:22 05:04 WBC 7.7 K/mm3 K/mm3 (4.5-10.0) RBC 3.02 M/mm3 L M/mm3 (4.2-5.4) Hgb 10.4 g/dL L g/dL 8.7 g/dL L g/dL (12.0-15.0) (12.0-15.0) Hct 33.9 % L % 27.6 % L % (37.0-47.0) (37.0-47.0) MCV 91.4 fl fl (80-100) MCH 28.8 pg pg (26-34) MCHC 31.5 g/dl L g/dl (32-36) RDW 13.8 % % (11.5-14.5) Plt Count 336 k/mm3 k/mm3 (150-375) MPV 9.1 fl fl (7.4-10.4) Sodium Potassium Chloride Carbon Dioxide Anion Gap BUN Creatinine Estim Creat Clear Calc Estimated GFR Glucose POC Capillary Glucose 169 mg/dl H mg/dl (65-105) Calcium 07/25/21 05:04 WBC RBC Hgb Hct MCV MCH MCHC RDW Plt Count MPV Sodium 139 mmol/L mmol/L (137-145) Potassium 3.6 mmol/L mmol/L (3.4-5.0) Chloride 110 mmol/L H mmol/L (98-107) Carbon Dioxide 23 mmol/L mmol/L (22-30) Anion Gap 6 mmol/L L mmol/L (8-16) BUN 23 mg/dL H mg/dL (7-17) Creatinine 1.00 mg/dL mg/dL (0.7-1.0) Estim Creat Clear Calc 37 ml/min ml/min Estimated GFR 53 L (59 - ) Glucose 98 mg/dL mg/dL (65-110) POC Capillary Glucose Calcium 8.2 mg/dL L mg/dL (8.4-10.2) Patient hx anesthesia problems: none Family hx anesthesia problems: none Results Review: All pre-operative results and documents have been reviewed as part of the pre-operative evaluation. FORMERLY [facility], 1928–1983 Past Medical History Medical History Body mass index (bmi) 25.0-25.9, adult (02/25/19) Chronic GERD Dizziness Dyslipidemia Essential hypertension History of IBS History of mitral valve prolapse Hx of cardiac pacemaker Hyperlipidemia Osteoarthritis Pulmonary emboli Surgical History Surgical History History of colon resection History of hemorrhoidectomy Family History Family History Father Cerebrovascular accident, Onset Age: 88 Mother Family history of arthritis, Onset Age: 85 Social History Social History Social History: the patient lives with her husb
--- NOTE | 2021-07-25 11:37 | SUR.OPER ---
EGD: Start 11:17, End 11:19. Colon: Start 11:23, End 11:35
--- NOTE | 2021-07-25 16:00 | PC.NURSE ---
On 07/25/21, the student Alla Figueroa, provided care and completed [employer] documentation on this patient. I have reviewed the students documentation on this patient. I have reviewed the students documentation and agree with the findings.
[2021-07-25] MEDS: FERROUS SULFATE 324 MG TABLET PO (16:32)
[2021-07-25] MEDS: PRAVASTATIN SODIUM 20 MG TABLET 40 MG PO (17:34)
[2021-07-25 18:44] LABS: Hematocrit 31.6 % (37.0-47.0); Hemoglobin 9.9 g/dL (12.0-15.0)
[2021-07-26] VITALS (9 sets, daily range): BP systolic 107–121; BP diastolic 62–64; PULSE 74–98; RESP 16–21; TEMP 36.1–36.4; O2SAT 97–100
[2021-07-26 05:39] LABS: Hematocrit 28.7 % (37.0-47.0); Hemoglobin 8.9 g/dL (12.0-15.0); Mean Corpuscular Hemoglobin 27.9 pg (26-34); Mean Platelet Volume 8.6 fl (7.4-10.4); Platelet Count Result 328 k/mm3 (150-375); Red Blood Count 3.19 M/mm3 (4.2-5.4); Red Cell Distribution Width 13.6 % (11.5-14.5); White Blood Count 6.6 K/mm3 (4.5-10.0)
[2021-07-26 05:53] LABS: Anion Gap 1 mmol/L (8-16); Blood Urea Nitrogen 19 mg/dL (7-17); Calcium 8.6 mg/dL (8.4-10.2); Carbon Dioxide 30 mmol/L (22-30); Chloride 109 mmol/L (98-107); Estimated CRCL calculation 40 ml/min; Estimated Glomerular Filt Rate 60; Glucose 98 mg/dL (65-110); Potassium 3.8 mmol/L (3.4-5.0); Sodium 140 mmol/L (137-145)
[2021-07-26] MEDS: PANTOPRAZOLE 40 MG TABLET PO ×2 (08:09→17:28)
[2021-07-26] MEDS: OMEGA 3 POLYUNSAT FATTY ACIDS 1 GM CAP 2 GM PO (08:09)
[2021-07-26] MEDS: POTASSIUM CHLORIDE 10 MEQ TABLET.ER PO (08:09)
[2021-07-26] MEDS: FERROUS SULFATE 324 MG TABLET PO ×2 (08:09→17:28)
[2021-07-26] MEDS: amLODIPine BESYLATE 5 MG TABLET PO (08:09)
[2021-07-26] MEDS: LOSARTAN POTASSIUM 50 MG TABLET PO (08:09)
--- NOTE | 2021-07-26 09:32 | WPDGIPROGNO ---
Progress Note: A&P Assessment and Plan (1) CHRISTIANO (iron deficiency anemia): Code(s): D50.9 - Iron deficiency anemia, unspecified Status: Acute Assessment and Plan: patient with iron deficiency anemia. Recent colonoscopy unremarkable aside from evidence for previous resection. She was found to have a gastric ulcer with flat red spot suggesting stigmata recent bleeding. Plan is for iron replacement. Follow-up CBC after discharge is encouraged. (2) Gastric ulcer: Code(s): K25.9 - Gastric ulcer, unspecified as acute or chronic, without hemorrhage or perforation Status: Acute Assessment and Plan: Gastric ulcer identified at time of endoscopy with flat red spots suggesting recent bleeding. Because of this finding would try to defer anticoagulation for a brief intervals perhaps 1 week. Allowing Lovenox appears prudent. Advancing to Coumadin or Eliquis etc should be deferred for a week if possible. Follow-up to document healing of gastric ulcer suggested in 2-3 months. (3) History of colon resection: Code(s): Z90.49 - Acquired absence of other specified parts of digestive tract Status: Acute Assessment and Plan: Patient gives a history of colon resection for a tumor. Well-healed anastomosis at time of surgery. No other bleeding sites identified colonoscopy. (4) Pulmonary emboli: Qualifiers: Pulmonary embolism type: multiple subsegmental (without acute cor pulmonale) Qualified Code(s): I26.94 - Multiple subsegmental pulmonary emboli without acute cor pulmonale Code(s): I26.99 - Other pulmonary embolism without acute cor pulmonale Status: Acute Assessment and Plan: Patient with new finding multiple pulmonary emboli. Presumably she had a DVT. No obvious findings on physical exam. Currently on bedrest on Lovenox. Anticoagulation briefly held because of her gastric ulcer. Subjective Date/time seen: 07/26/21 09:32 Patient alert comfortable this morning. Notes no additional bleeding. Denies abdominal pain. Tolerating diet. She was breathing comfortably this morning. Denies any swelling in her legs. Review of Systems Review of Systems: All systems reviewed & are unremarkable except as noted in HPI and below Exam Narrative: Physical exam reveals patient be alert. Comfortable at rest. HEENT exam unremarkable. Patient anicteric. Lungs are clear. Heart without murmur. Abdomen bowel sounds present soft nontender with no organomegaly. Objective Data Vital Signs Vital Signs: Vital Signs - 24 hr 07/25/21 10:34 07/25/21 11:36 07/25/21 11:46 Temperature 97.3 F L Pulse Rate 87 67 77 Respiratory Rate 18 19 16 Blood Pressure 171/71 H 94/48 L 116/55 L Pulse Oximetry 100 99 99 07/25/21 11:56 07/25/21 14:00 07/25/21 16:00 Temperature 97.0 F L Pulse Rate 69 74 81 Respiratory Rate 14 20 Blood Pressure 115/62 164/53 H Pulse Oximetry 100 99 07/25/21 19:29 07/25/21 20:00 07/26/21 00:00 Temperature 97.9 F Pulse Rate 81 81 77 Respiratory Rate 16 Blood Pressure 136/56 L Pulse Oximetry 97 07/26/21 04:00 07/26/21 04:21 Temperature 97 F L Pulse Rate 74 98 Respiratory Rate 17 Blood Pressure 121/62 Pulse Oximetry 98 Intake/Output Intake/Output: Intake & Output 07/23/21 07/24/21 07/25/21 07/26/21 23:59 23:59 23:59 23:59 Intake Total 1450 3120 1160 350 Output Total 575 800 750 900 Balance 875 2320 410 -550 Meds/Results Medications: Active Medications Generic Name Dose Route Start Last Admin Trade Name Milindq PRN Reason Stop Dose Admin Acetaminophen 650 mg 07/21/21 23:02 Acetaminophen 325 Mg Tablet PO Q4H PRN Pain Amlodipine Besylate 5 mg 07/22/21 09:00 07/26/21 08:09 Amlodipine Besylate 5 Mg Tablet PO 5 mg DAILY MIS Administration Enoxaparin Sodium 68 mg 07/22/21 09:00 07/25/21 11:09 Enoxaparin 80 Mg/0.8 Ml Syringe SUB-Q Not Given Q12HR MIS Ferrous S
[2021-07-26] MEDS: ENOXAPARIN 80 MG/0.8 ML SYRINGE 68 MG SUB-Q ×2 (11:05→21:33)
--- NOTE | 2021-07-26 14:12 | PM.IMPN ---
Progress Note: A&P Assessment and Plan (1) Pulmonary emboli: Qualifiers: Pulmonary embolism type: multiple subsegmental (without acute cor pulmonale) Qualified Code(s): I26.94 - Multiple subsegmental pulmonary emboli without acute cor pulmonale Code(s): I26.99 - Other pulmonary embolism without acute cor pulmonale Status: Acute Assessment and Plan: CTA showed several small right-sided segmental pulmonary emboli, low clot burden based on gastric ulcer with stigmata of recent bleeding, recommended to defer DOAC for 1 week. Will continue with therapeutic Lovenox for 1 week and then transition to Eliquis. venous Doppler negative for DVT echo results reviewed. No evidence of heart strain troponin negative. BNP only mildly elevated but reasonable for her age (2) CHRISTIANO (iron deficiency anemia): Code(s): D50.9 - Iron deficiency anemia, unspecified Status: Acute Assessment and Plan: Hgb ranging 8.5-10.0 Iron panel consistent with iron deficiency Continue PO ferrous sulfate Stool occult blood test positive. Appreciate GI consultation B12 normal, folate pending Recheck H&H this evening (3) Gastric ulcer: Code(s): K25.9 - Gastric ulcer, unspecified as acute or chronic, without hemorrhage or perforation Status: Acute Assessment and Plan: EGD on 07/25/21 showed gastric ulcer with stigmata of recent bleediing Due to this, recommended to defer anticoagulation for 1 week. Continue protonix 40 mg BID Avoid NSAIDs. Hold aspirin Lovenox resumed this morning. Will continue tonight and recheck H&H in the morning. If remaining stable will discharge with Lovenox for 1 week then transition to Eliquis. She will need repeat CBC in 1 week following discharge and outpatient follow up in 2-3 months to reassess for healing. (4) Essential hypertension: Code(s): I10 - Essential (primary) hypertension Status: Chronic Assessment and Plan: blood pressure reviewed and has been generally well controlled. Last BP 121/62 continue amlodipine and losartan monitor blood pressure trends (5) Grade I diastolic dysfunction: Code(s): I51.89 - Other ill-defined heart diseases Status: Acute Assessment and Plan: Evident on echocardiogram she is established with animation producer, Dr. Varghese appears clinically compensated monitor volume status closely Subjective Date/time seen: 07/26/21 14:12 Interval history: Date of service: 07/26/2021 Ml Wells is a 80-year-old female with a history of hypertension, hyperlipidemia, GERD, colon cancer s/p partial colectomy, hemorrhoidectomy, cardiac pacemaker who is seen in follow-up for pulmonary embolism and gastric ulcer. She is feeling well today. She has been having looser stools today but denies melena or hematochezia. No N/V, fever, chills, dizziness, lightheadedness. No SOB. No cough. Denies hemoptysis. Appetite is good. She has been up and walking around her room without difficulty. Appetite is good. Review of Systems Review of Systems: All systems reviewed & are unremarkable except as noted in HPI and below Exam Narrative: Ms. Wells is a well-nourished, well-appearing 80-year-old female who is sitting up at the bedside. She appears comfortable and is in NARD. Neuro: awake, alert and oriented x4, speech clear, no focal neuro deficits noted HEENMT: normocephalic, atraumatic, EOMI, sclerae anicteric Neck: supple, no lymphadenopathy Respiratory: clear to auscultation bilaterally, nonlabored breathing Cardio: regular rate, regular rhythm with S1-S2 Abdomen: nondistended, normoactive bowel sounds, soft, nontender to palpation Extremities: no edema, erythema, or tenderness to palpation Skin: no rashes or lesions, warm and dry Psych: appropriate mood and affect, judgment and insight intact Objective Data Vital Signs Vital Signs: Vital Signs - 24 hr 07/25/21
[2021-07-26] MEDS: PRAVASTATIN SODIUM 20 MG TABLET 40 MG PO (17:28)
[2021-07-26 18:32] LABS: Hematocrit 31.3 % (37.0-47.0); Hemoglobin 9.4 g/dL (12.0-15.0)
[2021-07-26] MEDS: PSYLLIUM POWDER PACKET 1 PACKET PO (21:17)
[2021-07-27 05:49] LABS: Hematocrit 30.3 % (37.0-47.0); Hemoglobin 9.3 g/dL (12.0-15.0); Mean Corpuscular HGB Conc 30.7 g/dl (32-36); Mean Corpuscular Hemoglobin 28.4 pg (26-34); Mean Corpuscular Volume 92.7 fl (80-100); Mean Platelet Volume 8.7 fl (7.4-10.4); Platelet Count Result 322 k/mm3 (150-375); Red Blood Count 3.27 M/mm3 (4.2-5.4); Red Cell Distribution Width 13.8 % (11.5-14.5); White Blood Count 6.2 K/mm3 (4.5-10.0)
[2021-07-27 06:00] VITALS: BP 116/64; PULSE 73; RESP 20; TEMP 36.3; O2SAT 99
[2021-07-27] MEDS: amLODIPine BESYLATE 5 MG TABLET PO (07:48)
[2021-07-27] MEDS: FERROUS SULFATE 324 MG TABLET PO (07:48)
[2021-07-27] MEDS: LOSARTAN POTASSIUM 50 MG TABLET PO (07:49)
[2021-07-27] MEDS: ENOXAPARIN 80 MG/0.8 ML SYRINGE 68 MG SUB-Q (07:49)
[2021-07-27] MEDS: OMEGA 3 POLYUNSAT FATTY ACIDS 1 GM CAP 2 GM PO (07:49)
[2021-07-27] MEDS: PSYLLIUM POWDER PACKET 1 PACKET PO (07:49)
[2021-07-27] MEDS: PANTOPRAZOLE 40 MG TABLET PO (07:50)
--- NOTE | 2021-07-27 10:29 | WPDGIPROGNO ---
Progress Note: A&P Assessment and Plan (1) Gastric ulcer: Code(s): K25.9 - Gastric ulcer, unspecified as acute or chronic, without hemorrhage or perforation Status: Acute Assessment and Plan: Patient found to have gastric ulcer at time of endoscopy. Ulcer had stigmata of recent bleeding. For this reason stronger anticoagulant should be held for a week. Continue PPI therapy after discharge. Avoid NSAIDs. Follow-up EGD anticipated in 2-3 months. [place] diet suggested. (2) History of colon resection: Code(s): Z90.49 - Acquired absence of other specified parts of digestive tract Status: Acute Assessment and Plan: Patient has a prior history of colon resection for tumor. No evidence of recurrence at this time. Consider follow-up colonoscopy in 3-5 years because of prior history of colon tumor. (3) CHRISTIANO (iron deficiency anemia): Code(s): D50.9 - Iron deficiency anemia, unspecified Status: Acute Assessment and Plan: Iron replacement advised because of iron deficiency anemia. Iron will turn stools black patient informed of this. (4) Pulmonary emboli: Qualifiers: Pulmonary embolism type: multiple subsegmental (without acute cor pulmonale) Qualified Code(s): I26.94 - Multiple subsegmental pulmonary emboli without acute cor pulmonale Code(s): I26.99 - Other pulmonary embolism without acute cor pulmonale Status: Acute Assessment and Plan: Patient with new pulmonary emboli. Agree with anticoagulation. Hopefully this can be deferred for several days to allow the ulcer to begin healing. Outpatient management okay with GI service. Subjective Date/time seen: 07/27/21 10:29 Patient alert comfortable this morning. Up ambulating in room. Denies abdominal pain. Tolerating diet. Stool still dark now attributed to iron Review of Systems Review of Systems: All systems reviewed & are unremarkable except as noted in HPI and below Exam Narrative: physical exam reveals patient be alert. Vital signs stable. HEENT exam unremarkable. Patient anicteric. Lungs are clear. Heart without murmur. Abdomen bowel sounds are present soft nontender with no organomegaly. Objective Data Vital Signs Vital Signs: Vital Signs - 24 hr 07/26/21 12:00 07/26/21 14:05 07/26/21 16:00 Temperature 97.6 F Pulse Rate 84 82 79 Respiratory Rate 16 Blood Pressure 107/62 Pulse Oximetry 99 07/26/21 19:51 07/26/21 22:00 07/27/21 06:00 Temperature 97.3 F L 97.4 F L Pulse Rate 79 73 Respiratory Rate 21 H 20 Blood Pressure 118/64 116/64 Pulse Oximetry 97 100 99 Intake/Output Intake/Output: Intake & Output 07/24/21 07/25/21 07/26/21 07/27/21 23:59 23:59 23:59 23:59 Intake Total 3120 1160 1070 640 Output Total 644 384 9027 900 Balance 2320 186 -393 -752 Meds/Results Medications: Active Medications Generic Name Dose Route Start Last Admin Trade Name Freq PRN Reason Stop Dose Admin Acetaminophen 650 mg 07/21/21 23:02 Acetaminophen 325 Mg Tablet PO Q4H PRN Pain Amlodipine Besylate 5 mg 07/22/21 09:00 07/27/21 07:48 Amlodipine Besylate 5 Mg Tablet PO 5 mg DAILY MIS Administration Enoxaparin Sodium 68 mg 07/22/21 09:00 07/27/21 07:49 Enoxaparin 80 Mg/0.8 Ml Syringe SUB-Q 68 mg Q12HR MIS Administration Ferrous Sulfate 324 mg 07/25/21 17:00 07/27/21 07:48 Ferrous Sulfate 324 Mg Tablet PO 324 mg BIDWM MIS Administration Fish Oil 2 gm 07/22/21 09:00 07/27/21 07:49 [place] 3 Polyunsat Fatty Acids 1 Gm Cap PO 2 gm DAILY MIS Administration Losartan Potassium 50 mg 07/22/21 09:00 07/27/21 07:49 Losartan Potassium 50 Mg Tablet PO 50 mg DAILY MIS Administration Pantoprazole Sodium 40 mg 07/22/21 09:00 07/27/21 07:50 Pantoprazole 40 Mg Tablet PO 40 mg BID MIS Administration Perflutren Lipid Microsphere 0 ml 07/21/21 23:00 Perflutren Lipid Microspheres 1.5 M
--- NOTE | 2021-07-27 11:43 | PM.DS ---
DS: Admitting Diagnosis Discharge Date 07/27/21 Admitting Diagnosis Pulmonary embolism DS: Discharge Diagnosis Discharge Diagnosis (1) Pulmonary emboli: Qualifiers: Pulmonary embolism type: multiple subsegmental (without acute cor pulmonale) Qualified Code(s): I26.94 - Multiple subsegmental pulmonary emboli without acute cor pulmonale Code(s): I26.99 - Other pulmonary embolism without acute cor pulmonale Status: Acute Assessment and Plan: CTA showed several small right-sided segmental pulmonary emboli, low clot burden. Likely provoked by recent COVID-19 illness. venous Doppler negative for DVT echo results reviewed. No evidence of heart strain troponin negative. BNP only mildly elevated but reasonable for her age Treated with therapeutic Lovenox 60 mg subQ q.12 hours. Based on gastric ulcer with stigmata of recent bleeding, recommended to defer DOAC for 1 week. Continue Lovenox. Will transition to Eliquis 10 mg b.i.d. x7 days in 5 mg twice daily after completion 1 week of Lovenox. Educated regarding bleeding risk associated with anticoagulation. Care coordination assisted with pricing for specially medications. Patient has arranged family assistance to perform injections for the next week (2) CHRISTIANO (iron deficiency anemia): Code(s): D50.9 - Iron deficiency anemia, unspecified Status: Acute Assessment and Plan: Hgb ranging 8.5-10.0 Iron panel consistent with iron deficiency Started on p.o. ferrous sulfate which will be continued. Patient aware of oral iron supplementation associated with dark stools Stool occult blood test positive. She was seen in consultation by Gastroenterology. See below. B12 normal, folate pending H&H monitored and remained stable while on Lovenox. No active bleeding. Repeat H&H in 1 week to ensure remaining stable (3) Gastric ulcer: Code(s): K25.9 - Gastric ulcer, unspecified as acute or chronic, without hemorrhage or perforation Status: Acute Assessment and Plan: EGD on 07/25/21 showed gastric ulcer with stigmata of recent bleediing Seen in consultation by Gastroenterology Protonix 40 mg b.i.d. Avoid NSAIDs. Meloxicam discontinued Aspirin on hold Continue with anticoagulation due to PE, caution due to increased bleeding risk with ulcer Follow-up with GI in 2-3 months for repeat EGD (4) Essential hypertension: Code(s): I10 - Essential (primary) hypertension Status: Chronic Assessment and Plan: blood pressure reviewed and was well controlled continue amlodipine and losartan (5) Grade I diastolic dysfunction: Code(s): I51.89 - Other ill-defined heart diseases Status: Acute Assessment and Plan: Evident on echocardiogram she is established with inspector paper products, Dr. Abimael Catherinevolemic on exam DS: Summary Hospital Course Hospital Course: Date of admission: 07/21/2021 Date of discharge: 07/27/2021 Ml Wells is a 80-year-old female with a history of hypertension, hyperlipidemia, GERD, colon cancer s/p partial colectomy, hemorrhoidectomy, cardiac pacemaker who presented to the emergency department on 07/21/2021 with complaints of shortness of breath worsened with deep breath. Imaging identified a pulmonary embolism and she was admitted to the hospitalist service for further evaluation and management. Please see above for further details. She was started on therapeutic Lovenox for her PE and she will continue with Eliquis as an outpatient. Underwent EGD and found to have gastric ulcer for which she will remain on Protonix b.i.d. Counseled extensively on monitoring for any signs/symptoms of bleeding as well as her medication regimen. All questions answered. She was feeling improved and requested discharge home. She was determined to no longer require inpatient care and was discharged in hemodynamically stable condition on 07/27/2021. Following discharge the patient
[2021-07-27 20:18] LABS: Red Blood Cell Folate 917 ng/mL RBC (>280)
== END 2021-07-27 13:05 | disposition home or self-care (01) | DRG 377 ==
LOC: ANHED 15:07 → ANH3MEDSUR 18:03 → ANH2MED 18:47
PROVIDERS: Internal Medicine Gastroenterology; Nurse Practitioner; Nurse Practitioner Adult Health; Physician Assistant; Admitting Provider Hospitalist; Emergency Provider Emergency Medicine; PCP Internal Medicine; Visit Provider Physician Assistant
PROC: 0DJ08ZZ Inspection of Upper Intestinal Tract, Via Natural or Artificial Opening Endoscopic (ICD-10-PCS; CPT 43235; principal; 2021-07-25 12:00)
DX: K25.4 Chronic or unspecified gastric ulcer with hemorrhage (principal); I26.94 Multiple subsegmental thrombotic pulmonary emboli without acute cor pulmonale; K92.1 Melena; D50.9 Iron deficiency anemia, unspecified; I11.9 Hypertensive heart disease without heart failure; K21.9 Gastro-esophageal reflux disease without esophagitis; K64.8 Other hemorrhoids; E78.5 Hyperlipidemia, unspecified; M19.90 Unspecified osteoarthritis, unspecified site; Z95.0 Presence of cardiac pacemaker; Z90.49 Acquired absence of other specified parts of digestive tract; Z79.82 Long term (current) use of aspirin; Z85.038 Personal history of other malignant neoplasm of large intestine
CPT/HCPCS: 36415; 71045; 71275; 80048; 80053; 82274; 82607; 82728; 82747; 82948; 83540; 83550; 83605; 83615; 83690; 83735; 83880; 84443; 84484; 85014; 85018; 85025; 85027; 85046; 85380; 85610; 85730; 88305; 88342; 93005; 93306; 93970; 96372; 97161; 99285; A9270; G0378; J1650; J2704; J7120; Q9967

== ENCOUNTER 2021-10-24 00:01 | Day surgery (SDC) | payer MEDICARE, SELFPAY ==
[2021-09-25 15:08] VITALS: BMI 27.3
[2021-10-10 12:26] VITALS: BMI 27.3
--- NOTE | 2021-10-10 12:36 | PC.NURSE ---
1230- Pt was rescheduled from 10-02-21 to 10-24-21. PAT call done today. Pt states no changes since last PAT call done on 09-25-21. Questions answered.
[2021-10-24 08:15] VITALS: BP 188/73; PULSE 79; RESP 16; TEMP 36.4; O2SAT 100
[2021-10-24] MEDS: LACTATED RINGERS 1,000 ML 150 ML IV CONT (08:17)
--- NOTE | 2021-10-24 08:53 | WPDGICN ---
Assessment and Plan Assessment and plan (1) Gastric ulcer: Code(s): K25.9 - Gastric ulcer, unspecified as acute or chronic, without hemorrhage or perforation Status: Acute Assessment and Plan: patient has a gastric ulcer identified in July. Plan is for EGD at this time. Patient should avoid NSAIDs. Further recommendations will be given after endoscopy. She should remain on Protonix and or pantoprazole if not already placed on these medications. Dose will be clarified at time of discharge. (2) History of colon resection: Code(s): Z90.49 - Acquired absence of other specified parts of digestive tract Status: Acute GI Consult Note Consult date/time: 10/24/21 08:53 HPI: Ml Wells is a 81 year old female Presents for follow-up EGD. Patient hospitalized in July found to have a gastric ulcer. She returns today for follow-up 2 months later. When diagnosed she was advised to be on Protonix. However when discharge from the hospital patient states that this medication was never implemented. She states she continues to have rather diffuse abdominal pain. She is somewhat tender diffusely. She notices discomfort on having a bowel movement. She states her bowel habits are normal and denies any blood in her stools. Her appetite has continued. Family history noncontributory. Review of Systems Review of Systems: All systems reviewed & are unremarkable except as noted in HPI and below PMFSH Past Medical History Medical History Body mass index (bmi) 25.0-25.9, adult (02/25/19) Chronic GERD Dizziness Dyslipidemia Essential hypertension History of IBS History of mitral valve prolapse Hx of cardiac pacemaker Hyperlipidemia Osteoarthritis Pulmonary emboli Surgical History Surgical History History of colon resection History of hemorrhoidectomy Family History Family History Father Cerebrovascular accident, Onset Age: 88 Mother Family history of arthritis, Onset Age: 85 Social History Social History Social History: the patient lives with her and he is the durable power finance attorney for healthcare. The patient has no children. The patient used to work for an [employer]. She is a lifelong nonsmoker. She does not use any alcohol marijuana or illicit drugs. Code status full code Smoking status: Never smoker Second hand tobacco smoke exposure: Yes Alcohol intake: never Substance use: never Substance use type: does not use Living arrangements: with family Gender identity (if verbalized by the patient): Male Spiritual care concerns: No Meds Home Medications and Allergies Home Medications Medication Instructions Recorded Confirmed Type potassium chloride 10 mEq 10 meq PO 3XW 08/25/19 10/24/21 History capsule,extended release pravastatin 40 mg tablet 40 mg PO QPM 08/25/19 10/24/21 History losartan 50 mg tablet 100 mg PO DAILY 08/08/20 10/24/21 History omega 1-dxc-xlg-fish oil [Fish Oil] 2 cap PO DAILY 07/21/21 10/24/21 History pantoprazole 40 mg PO BID #60 tablet 07/27/21 10/24/21 Rx ferrous sulfate 324 mg PO DAILY 09/25/21 10/24/21 History psyllium husk [Metamucil] 2 tsp PO DAILY 09/25/21 10/24/21 History apixaban [Eliquis] 5 mg PO BID 10/24/21 10/24/21 History Allergies Allergy/AdvReac Type Severity Reaction Status Date / Time No Known Allergies Allergy Verified 10/24/21 08:13 Vital Signs Vital Signs - 24 hr 10/24/21 08:15 Temperature 97.6 F Pulse Rate 79 Respiratory Rate 16 Blood Pressure 188/73 H Pulse Oximetry 100 Exam Narrative: Physical exam reveals patient to be alert. Vital signs stable. She is somewhat anxious. HEENT exam reveals no icterus. Lung
--- NOTE | 2021-10-24 09:20 | WPDANESEPPF ---
Anes - Initial Pre Proc Eval Procedure: Operation Date: 10/24/21 09:30 Proposed Procedures p Esophagogastroduodenoscopy - José Miguel Wisdom MD Date/Time: 10/24/21 09:20 Surgeon: José Miguel Wisdom MD Pre Op Diagnosis: gastric ulcer Patient Data Age: 81 Gender: F Height: 1.57 m Weight: 60.2 kg Last Vital Signs Temp 97.6 F 10/24/21 08:15 Pulse 79 10/24/21 08:15 Resp 16 10/24/21 08:15 BP 188/73 H 10/24/21 08:15 Pulse Ox 100 10/24/21 08:15 Allergies Allergy/AdvReac Type Severity Reaction Status Date / Time No Known Allergies Allergy Verified 10/24/21 08:13 Home Medications Medication Instructions Recorded Confirmed Type potassium chloride 10 mEq 10 meq PO 3XW 08/25/19 10/24/21 History capsule,extended release pravastatin 40 mg tablet 40 mg PO QPM 08/25/19 10/24/21 History losartan 50 mg tablet 100 mg PO DAILY 08/08/20 10/24/21 History omega 6-utm-uvx-fish oil [Fish Oil] 2 cap PO DAILY 07/21/21 10/24/21 History pantoprazole 40 mg PO BID #60 tablet 07/27/21 10/24/21 Rx ferrous sulfate 324 mg PO DAILY 09/25/21 10/24/21 History psyllium husk [Metamucil] 2 tsp PO DAILY 09/25/21 10/24/21 History apixaban [Eliquis] 5 mg PO BID 10/24/21 10/24/21 History Patient hx anesthesia problems: none Family hx anesthesia problems: none Results Review: All pre-operative results and documents have been reviewed as part of the pre-operative evaluation. [facility] Past Medical History Medical History Body mass index (bmi) 25.0-25.9, adult (02/25/19) Chronic GERD Dizziness Dyslipidemia Essential hypertension History of IBS History of mitral valve prolapse Hx of cardiac pacemaker Hyperlipidemia Osteoarthritis Pulmonary emboli Surgical History Surgical History History of colon resection History of hemorrhoidectomy Family History Family History Father Cerebrovascular accident, Onset Age: 88 Mother Family history of arthritis, Onset Age: 85 Social History Social History Social History: the patient lives with her and he is the durable power family law attorney for healthcare. The patient has no children. 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 She does not use any alcohol marijuana or illicit drugs. Code status full code Smoking status: Never smoker Second hand tobacco smoke exposure: Yes Alcohol intake: never Substance use: never Substance use type: does not use Living arrangements: with family Gender identity (if verbalized by the patient): Male Spiritual care concerns: No Anes - Eval Final PreProcedure Day of Procedure 10/24/21 09:20 Patient weight: normal Heart: regular rate and rhythm Lungs: clear to auscultation Airway: Mallampati scale class II Neurological: alert and oriented Last oral intake: >/= 8 hours ASA classification: III Emergent: no Anesthetic plan: proceed Anesthesia type and monitoring: general GIVS and standard monitoring Results Review: All pre-operative results and documents have been reviewed as part of the pre-operative evaluation. Informed Consent: The patient's anesthetic plan and its attendant risks and benefits were discussed with the patient/family/POA. Questions were solicited and answers provided to the satisfaction of the patient/family/POA.
[2021-10-24 09:53] VITALS: BP 129/71; PULSE 72; RESP 18; O2SAT 93
[2021-10-24 10:03] VITALS: BP 141/72; PULSE 73; RESP 18; O2SAT 100
[2021-10-24 10:13] VITALS: BP 156/78; PULSE 74; RESP 20; O2SAT 98
--- NOTE | 2021-10-24 10:24 | SUR.PHASEII ---
Spoke with [employer] clinical compliance representative dealer Chester- updated on patient history and use of magnet during the procedure. Chester states that she does not need to be interrogated unless she is having problems in post op. Patient stable in post op - no interrogation necessary. Patient discharged. Chester states that every morning a report is sent from the pacemaker of any problems, so if there were any issues, the company would be notified.
--- NOTE | 2021-10-24 10:30 | SUR.PHASEII ---
consumer relations complaint clerk Jen verified with pacemaker rep that patient is safe to discharge at this time
== END 2021-10-24 10:30 | disposition home or self-care (01) ==
PROVIDERS: PCP Internal Medicine; Visit Provider Internal Medicine Gastroenterology
PROC: 0DJ08ZZ Inspection of Upper Intestinal Tract, Via Natural or Artificial Opening Endoscopic (ICD-10-PCS; CPT 43235; principal; 2021-10-24 09:30)
DX: K25.9 Gastric ulcer, unspecified as acute or chronic, without hemorrhage or perforation (principal); K31.7 Polyp of stomach and duodenum; K21.9 Gastro-esophageal reflux disease without esophagitis; E78.5 Hyperlipidemia, unspecified; K58.9 Irritable bowel syndrome, unspecified; I34.1 Nonrheumatic mitral (valve) prolapse; M19.90 Unspecified osteoarthritis, unspecified site; Z95.0 Presence of cardiac pacemaker; Z86.711 Personal history of pulmonary embolism; Z90.49 Acquired absence of other specified parts of digestive tract; Z79.01 Long term (current) use of anticoagulants
CPT/HCPCS: 43251; 43239; 87081; 88305; J2704; J7120

== ENCOUNTER 2021-12-03 13:32 | Inpatient (IN) | payer MEDICARE, SELFPAY ==
[2021-12-03] VITALS (42 sets, daily range): BP systolic 126–165; BP diastolic 62–90; PULSE 76–108; RESP 18–28; TEMP 36.2–36.5; O2SAT 92–100; BMI 23.3
--- NOTE | ~2021-12-03 | US_ITS ---
EXAMINATION: US thoracentesis DATE: 12/04/2021 13:36 INDICATION: Large left pleural effusion TECHNIQUE: The procedure and its risks and benefits were discussed with the patient. Potential risks discussed included bleeding, infection, and pneumothorax. The patient understood the risks and agreed to proceed. The skin was prepped and draped in sterile fashion. 1% lidocaine was used for local anes thesia. Under ultrasound guidance, a 5 Fr catheter with trochar was advanced into the left pleural ef fusion. Fluid was aspirated. The catheter was removed, and a dressing was applied. There were no imme diate complications. FINDINGS: Ultrasound images demonstrate a large left pleural effusion and the catheter within the fluid. IMPRESSION: 1. Successful ultrasound-guided thoracentesis yielding 1000 mL of dark reddish fluid. Reviewed, dictated and finalized at location A.
--- NOTE | ~2021-12-03 | CT_ITS ---
EXAMINATION: CT diagnostic chest wo con DATE: 12/03/2021 15:44 INDICATION: dyspnea TECHNIQUE: Computed tomography (CT) of the chest was performed without intravenous contrast. Automate d exposure control and iterative reconstruction technique were employed. The dose-length product was 164.86 mGy-cm. COMPARISON: X-ray chest 12/03/2021, CT chest 07/21/2021. FINDINGS: CHEST: Thoracic aorta: No dilation. Moderate arch calcification. Lung parenchyma and airways: Partial lingular and left upper lobe atelectasis. Near-complete left low er lobe atelectasis. Right upper lobe scar. Right lower lobe scar and atelectasis. Thoracic inlet, axillae and chest wall: Subcentimeter thyroid hypodensities that require no additiona l workup. No axillary lymphadenopathy. Mediastinum: Enlarged upper mediastinal and possibly precardiac lymph nodes. Heart and pericardium: Normal heart size. Trace pericardial fluid. Left chest pacer with intact leads . Coronary artery calcifications: Moderate. Pleura: Large left and moderate right pleural fluid collections. No definite mass. Upper abdomen: No significant finding. Thoracic bones: No acute osseous finding in the chest. IMPRESSION: Large left and moderate right pleural effusions. Adjacent pulmonary opacities likely represent atelec tasis, although infection cannot be definitively excluded. Mediastinal and precardiac lymphadenopathy . Reviewed, dictated and finalized at location K. IMPRESSION: Large left and moderate right pleural effusions. Adjacent pulmonary opacities l ikely represent atelectasis, although infection cannot be definitively excluded . Mediastinal and precardiac lymphadenopathy.
--- NOTE | ~2021-12-03 | XR_ITS ---
EXAMINATION: XR chest 1V portable Exam Date/Time: 12/03/2021 14:00 CDT HISTORY: cough SOB Comparison: 07/21/2021. RESULT: Lines, tubes, and devices: Left chest pacer with intact leads. Lungs and pleura: Marked left and mild right costophrenic angle blunting. Bibasilar opacities. Cardiomediastinal silhouette: Stable cardiomediastinal silhouette. Other: No acute osseous or upper abdominal finding. IMPRESSION: Large left and small right pleural effusions. Bibasilar atelectasis. Infection is not excluded. Reviewed, dictated and finalized at location K.
--- NOTE | ~2021-12-03 | XR_ITS ---
EXAMINATION: [id number] DATE: 12/04/2021 13:31 INDICATION: Left pleural effusion postthoracentesis TECHNIQUE: frontal view of the chest was obtained. COMPARISON: Chest CT and radiographs dated 12/03/2021 FINDINGS: Lung volumes remain small. Slight decrease in a still moderate sized left pleural effusion opacifying the left mid to lower lung zone. Slight increase in size of a small right pleural effusion with opac ification of the right lower lung zone. Associated atelectasis although superimposed pneumonia or pul monary infarct not excludable. The aerated portions of the lungs remain clear. No pneumothorax. Cardi ac silhouette is obscured. Calcified mediastinal lymph nodes consistent with old granulomatous diseas e. Dual lead pacemaker seen with leads projecting over the expected locations of the right atrium and right ventricle. Severe bilateral glenohumeral osteoarthritis. IMPRESSION: 1. Slight decrease in size of a moderate-sized left pleural effusion postthoracentesis. 2. Sliding increase in size of a small right pleural effusion. 3. Opacification of the lower lungs consistent with associated atelectasis although superimposed pneu monia or pulmonary infarcts not excludable. Reviewed, dictated and finalized at location A. IMPRESSION: 1. Slight decrease in size of a moderate-sized left pleural effusion postthorac entesis. 2. Sliding increase in size of a small right pleural effusion. 3. Opacification of the lower lungs consistent with associated atelectasis alth ough superimposed pneumonia or pulmonary infarcts not excludable.
--- NOTE | 2021-12-03 13:33 | ECG_ITS ---
Measurements Intervals [place] Rate: 107 P: -9 MD: 119 QRS: 7 QRSD: 85 T: -50 QT: 321 QTc: 428 Interpretive Statements SINUS TACHYCARDIA WITH INTERMITTENT VENTRICULAR PACING POSSIBLE LEFT ATRIAL ENLARGEMENT [-0.1mV P WAVE IN V1/V2] LOW QRS VOLTAGE IN PRECORDIAL LEADS [QRS DEFLECTION < 1.0 mV IN CHEST LEADS] POSSIBLE RIGHT VENTRICULAR CONDUCTION DELAY [RSR (QR) IN V1/V2] ST DEVIATION AND MODERATE T-WAVE ABNORMALITY, CONSIDER INFERIOR ISCHEMIA [-0.1+ mV T WAVE IN II/aVF] ABNORMAL ECG COMPARED TO ECG 07/21/2021 10:02:41 SINUS TACHYCARDIA NOW PRESENT Electronically Signed On 12-04-2021 12:30:39 CDT by Lino Zhang M.D.
--- NOTE | 2021-12-03 13:58 | ED.SOB ---
HPI - SOB/Dyspnea General Chief Complaint: Shortness of Breath/Dyspnea Stated Complaint: cant breath Time Seen by Provider: 12/03/21 13:40 Source: RN notes reviewed History of Present Illness HPI Narrative: Patient presents emergency department from home for shortness of breath. Patient states symptoms again approximately 1 week ago states that she has shortness of breath worse with exertion states she feels like she cannot take a deep breath. States that she had been seen by her PCP on Saturday and at that time had been prescribed a Z-Yovany but felt like it was making the symptoms worse and he stopped it after 2 days she states that she has had a cough this been nonproductive she denies any fevers or chills chest pain she states she had abdominal pain earlier that has now resolved and denies any nausea vomiting diarrhea denies any current abdominal pain patient states she is on Eliquis and has been taking as prescribed Related Data Home Medications Medication Instructions Recorded Confirmed potassium chloride 10 mEq 10 meq PO 3XW 08/25/19 10/24/21 capsule,extended release pravastatin 40 mg tablet 40 mg PO QPM 08/25/19 10/24/21 losartan 50 mg tablet 100 mg PO DAILY 08/08/20 10/24/21 omega 7-unt-lou-fish oil 300 2 cap PO DAILY 07/21/21 10/24/21 mg-1,000 mg capsule (Fish Oil) ferrous sulfate 325 mg (65 mg 324 mg PO DAILY 09/25/21 10/24/21 iron) tablet psyllium husk 3.4 gram/5.4 gram 2 tsp PO DAILY 09/25/21 10/24/21 oral powder (Metamucil) apixaban 5 mg tablet (Eliquis) 5 mg PO BID 10/24/21 10/24/21 Allergies Allergy/AdvReac Type Severity Reaction Status Date / Time No Known Allergies Allergy Verified 12/03/21 13:52 Review of Systems Review of Systems: Gen.: Denies fevers or chills ENT: Denies congestion Respiratory: See HPI CV: Denies chest pain or palpitations GI: Denies abdominal pain nausea, emesis or diarrhea Musculoskeletal: Denies back pain or muscle pain Neuro: Denies numbness, tingling, weakness or focal weakness Skin: Denies rash Except as documented, all other systems reviewed and negative PMFSH Past Medical History Medical History Body mass index (bmi) 25.0-25.9, adult (02/25/19) Chronic GERD Dizziness Dyslipidemia Essential hypertension History of IBS History of mitral valve prolapse Hx of cardiac pacemaker Hyperlipidemia Osteoarthritis Pulmonary emboli Surgical History Surgical History History of colon resection History of hemorrhoidectomy Family History Family History Father Cerebrovascular accident, Onset Age: 88 Mother Family history of arthritis, Onset Age: 85 Social History Social History Social History: the patient lives with her and he is the durable power patent prosecution attorney for healthcare. The patient has no children. 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 She does not use any alcohol marijuana or illicit drugs. Code status full code Smoking status: Never smoker Second hand tobacco smoke exposure: Yes Alcohol intake: never Substance use: never Substance use type: does not use Gender identity (if verbalized by the patient): Male Spiritual care concerns: No Exam Narrative: APPEARANCE: No acute distress, nontoxic, resting in bed EYES: EOMI HEENT: Normocephalic, atraumatic, OMM RESPIRATORY: No respiratory distress decreased breath sounds bilateral lung bases no rhonchi or rales CARDIOVASCULAR: Regular rate and rhythm without murmurs rubs or gallops. ABDOMINAL: Soft, nontender, nondistended, no rebound or guarding MUSCULOSKELETAl: Moves all extremities. No clubbing, cyanosis or edema. NEURO: Awake and alert. Following commands, speech normal, no focal deficits SKI
[2021-12-03 13:59] LABS: Basophils Percent Auto 0.4 % (0.2-1.2); Eosinophils Absolute Auto 0.1 K/mm3 (0-0.3); Eosinophils Percent Auto 0.7 % (0-4.4); Hematocrit 38.3 % (37.0-47.0); Hemoglobin 11.9 g/dL (12.0-15.0); Immature Granulocyte Absolute 0.04 K/mm3 (0.00-0.031); Immature Granulocyte Percent A 0.4 % (0-0.5); Lymphocytes Absolute Auto 1.76 K/mm3 (0.9-3.2); Lymphocytes Percent Auto 15.8 % (18.3-44.2); Mean Corpuscular HGB Conc 31.1 g/dl (32-36); Mean Corpuscular Hemoglobin 26.7 pg (26-34); Mean Corpuscular Volume 86.1 fl (80-100); Mean Platelet Volume 8.5 fl (7.4-10.4); Monocytes Absolute Auto 1.4 K/mm3 (0.1-0.6); Monocytes Percent Auto 12.8 % (2.6-8.5); Neutrophils Absolute Auto 7.8 K/mm3 (1.3-6.7); Neutrophils Percent Auto 69.9 % (45.5-73.1); Platelet Count Result 548 k/mm3 (150-375); Red Blood Count 4.45 M/mm3 (4.2-5.4); Red Cell Distribution Width 17.2 % (11.5-14.5); White Blood Count 11.2 K/mm3 (4.5-10.0)
[2021-12-03 14:03] LABS: Alanine Aminotransferase 12 U/L (6-35); Albumin Level 3.6 g/dL (3.5-5.1); Alkaline Phosphatase 101 U/L (38-126); Anion Gap 8 mmol/L (8-16); Aspartate Amino Transferase 28 U/L (14-36); Bilirubin,Total 1.2 mg/dL (0.2-1.3); Blood Urea Nitrogen 23 mg/dL (7-17); Calcium 8.7 mg/dL (8.4-10.2); Carbon Dioxide 22 mmol/L (22-30); Chloride 108 mmol/L (98-107); Estimated CRCL calculation 31 ml/min; Estimated Glomerular Filt Rate 53; Glucose 133 mg/dL (65-110); Potassium 3.7 mmol/L (3.4-5.0); Sodium 138 mmol/L (137-145)
[2021-12-03 14:14] LABS: Magnesium 1.5 mg/dL (1.6-2.3)
[2021-12-03 14:15] LABS: INR 1.5; NT Pro B Type Natriuretic Pept 463 pg/mL (5-100); Prothrombin Time 17.5 Seconds (11.1-14.7); Troponin I < 0.012 ng/mL (0.000-0.034)
[2021-12-03 14:16] LABS: Partial Thromboplastin Time 33.8 SECONDS (22.3-36.8)
[2021-12-03 14:37] LABS: SARS-CoV-2 RNA PCR Negative
[2021-12-03] MEDS: MAGNESIUM SULF 2 GM/WATER 50ML 2 GM/50 ML BAG IVPB (14:53)
[2021-12-03 17:19] LABS: Lactic Acid Reflex 1.1 mmol/L (0.7-2.0)
--- NOTE | 2021-12-03 18:32 | PC.NURSE ---
Patient assisted onto bedside commode by medical underwriter and ED prosthetics technician. Patient became short of breath with lifting herself up on the stretcher.
[2021-12-03 18:42] LABS: Troponin I < 0.012 ng/mL (0.000-0.034)
--- NOTE | 2021-12-03 19:40 | PM.IMHP ---
H&P: HPI History of Present Illness Date/Time: Patient was placed observation status for expected length of stay less than 23 hours for management, will plan to re-evaluate tomorrow for improvement. 12/03/21 19:40 Chief Complaint: Shortness of breath Narrative: Ms. Wells is an 81-year-old female who presented emergency room with complaints of increasing shortness of breath. Patient states that for the last 6 months she has been having dyspnea on exertion that comes and goes. Patient states that on Saturday she went to her primary care provider am was complaining of increasing dyspnea exertion and had chest x-ray performed and received a shot of antibiotics. Patient states she was given a prescription for a Z-Yovany and took all of her antibiotics. Patient states that she continued to have increasing shortness of breath and today she states that shortness of breath is unbearable and decided come the emergency room for further evaluation. Patient states she was hospitalized in June of this year with pulmonary embolism was placed on Eliquis. Patient denies any fever or chills. Patient denies any chest pain, lightheadedness, dizziness, syncopal, or near syncopal episodes. Patient denies any abdominal pain, nausea, vomiting, constipation, or diarrhea. Upon evaluation emergency room patient had a chest x-ray performed that showed a moderate to large left pleural effusion with a minimal right pleural effusion. Patient underwent CT scan that shows a significantly large left pleural effusion with a moderate right pleural effusion. Patient's O2 saturations are in the mid 90s on room air. As already stated patient has a known history of pulmonary embolism or diagnosed in June this year and has been placed on Eliquis. Patient also has a known history of colon cancer which she states was over 50 years ago and had a colectomy with no radiation or chemotherapy. Patient states she has a known history of hypertension, mitral valve prolapse, dual chamber pacemaker, and dyslipidemia. Review of Systems Review of Systems: A 12 point review of systems was completed patient all pertinent positive and negative per HPI the remainder are unremarkable. [facility] Past Medical History Medical History Body mass index (bmi) 25.0-25.9, adult (02/25/19) Chronic GERD Dizziness Dyslipidemia Essential hypertension History of IBS History of mitral valve prolapse Hx of cardiac pacemaker Hyperlipidemia Osteoarthritis Pulmonary emboli Surgical History Surgical History History of colon resection History of hemorrhoidectomy Family History Family History Father Cerebrovascular accident, Onset Age: 88 Mother Family history of arthritis, Onset Age: 85 Social History Social History Social History: the patient lives with her and he is the durable power litigation attorney associate for healthcare. The patient has no children. The patient used to work for an [employer]. She is a lifelong nonsmoker. She does not use any alcohol marijuana or illicit drugs. Code status full code Smoking status: Never smoker Second hand tobacco smoke exposure: Yes Alcohol intake: never Substance use: never Substance use type: does not use Gender identity (if verbalized by the patient): Male Spiritual care concerns: No Meds Home Medications and Allergies Home Medications Medication Instructions Recorded Confirmed Type potassium chloride 10 mEq 10 meq PO 3XW 08/25/19 10/24/21 History capsule,extended release pravastatin 40 mg tablet 40 mg PO QPM 08/25/19 10/24/21 History losartan 50 mg tablet 100 mg PO DAILY 08/08/20 10/24/21 History omega 4-ufo-hyy-fish oil 300 2 cap PO DAILY 07/21/21 10/24/21 History mg-1,00
--- NOTE | 2021-12-03 19:42 | PC.NURSE ---
Patient care report called to LUDMILA Jordan. All questions answered at this time.
--- NOTE | 2021-12-03 20:38 | ADMGEN ---
This patient, Ml Wells, was admitted to IMU Room 205-02. Patient/family oriented to hospital policies and general routines including ID bracelet, bed and alarms, visiting hours, pain management, procedures, bathroom and other care routines, personal items, smoking policy, room service/diet, and visiting hours. Information on how to activate the Rapid Response Team has been discussed. Patient/Family are encouraged to report perceived risks to care and to ask questions if they do not understand what they are told or what they should do.
[2021-12-03 23:33] LABS: Troponin I 0.018 ng/mL (0.000-0.034)
[2021-12-04] VITALS (21 sets, daily range): BP systolic 128–188; BP diastolic 49–96; PULSE 84–109; RESP 16–24; TEMP 36.3–37.1; O2SAT 96–100
[2021-12-04 05:19] LABS: Basophils Percent Auto 0.2 % (0.2-1.2); Eosinophils Percent Auto 0.2 % (0-4.4); Hematocrit 34.3 % (37.0-47.0); Hemoglobin 10.6 g/dL (12.0-15.0); Immature Granulocyte Absolute 0.03 K/mm3 (0.00-0.031); Immature Granulocyte Percent A 0.3 % (0-0.5); Lymphocytes Absolute Auto 0.76 K/mm3 (0.9-3.2); Lymphocytes Percent Auto 7.5 % (18.3-44.2); Mean Corpuscular HGB Conc 30.9 g/dl (32-36); Mean Corpuscular Hemoglobin 26.6 pg (26-34); Mean Corpuscular Volume 86.2 fl (80-100); Mean Platelet Volume 8.8 fl (7.4-10.4); Monocytes Absolute Auto 1.1 K/mm3 (0.1-0.6); Monocytes Percent Auto 10.8 % (2.6-8.5); Neutrophils Absolute Auto 8.2 K/mm3 (1.3-6.7); Platelet Count Result 513 k/mm3 (150-375); Red Blood Count 3.98 M/mm3 (4.2-5.4); White Blood Count 10.1 K/mm3 (4.5-10.0)
[2021-12-04 05:24] LABS: Alanine Aminotransferase 9 U/L (6-35); Alkaline Phosphatase 95 U/L (38-126); Anion Gap 6 mmol/L (8-16); Aspartate Amino Transferase 18 U/L (14-36); Bilirubin,Total 1.1 mg/dL (0.2-1.3); Blood Urea Nitrogen 22 mg/dL (7-17); Calcium 8.4 mg/dL (8.4-10.2); Carbon Dioxide 24 mmol/L (22-30); Chloride 110 mmol/L (98-107); Estimated CRCL calculation 33 ml/min; Estimated Glomerular Filt Rate 53; Glucose 116 mg/dL (65-110); Potassium 3.7 mmol/L (3.4-5.0); Sodium 140 mmol/L (137-145)
[2021-12-04 05:36] LABS: INR 1.5; Prothrombin Time 17.2 Seconds (11.1-14.7)
[2021-12-04 13:45] LABS: pH Pleural Fluid 7.399 (7.210-7.500)
[2021-12-04 15:03] LABS: Appearance Pleural Fluid Bloody (Clear); Color Pleural Fluid Red (Colorless); Pleural fluid source Pleural fluid
[2021-12-04 15:05] LABS: Lymphocytes Pleural Fluid 28 %; Monocytes Pleural Fluid 4 %; Neutrophils Pleural Fluid 56 % (0-25)
[2021-12-04 15:06] LABS: Macrophages Pleural Fluid 12 %
--- NOTE | 2021-12-04 15:32 | PM.IMPN ---
Progress Note: A&P Assessment and Plan (1) Bilateral pleural effusion: Code(s): J90 - Pleural effusion, not elsewhere classified Status: Acute Assessment and Plan: Patient has a significantly large bilateral L>>R pleural effusion. Patient was on Eliquis which was held and underwent US guided thoracentesis today with removal of 1L of dark reddish fluid. Gram stain showing no organisms but multiple WBCs. No cell count but 56% Neutrophils. pH normal. BCx NGTD. Follow up on culture results and pathology. (2) Essential hypertension: Code(s): I10 - Essential (primary) hypertension Status: Chronic Assessment and Plan: Patient's blood pressure was reviewed on 12/04. Blood pressure elevated. Will resume home medications. Adjust medications accordingly for optimal blood pressure control. (3) Pulmonary emboli: Qualifiers: Pulmonary embolism type: multiple subsegmental (without acute cor pulmonale) Qualified Code(s): I26.94 - Multiple subsegmental pulmonary emboli without acute cor pulmonale Code(s): I26.99 - Other pulmonary embolism without acute cor pulmonale Status: Acute Assessment and Plan: Patient's anticoagulation was placed on hold for thoracentesis. Will resume oral anticoagulation since she is more comfortable post-thoracentesis. (4) Community acquired pneumonia: Code(s): J18.9 - Pneumonia, unspecified organism Status: Acute Assessment and Plan: Patient received Levaquin 750 mg in the emergency room. Based on patient's kidney function she was changed to 750 mg every 48 hours. BCx NGTD. Will continue the same for now. Subjective Date/time seen: 12/04/21 15:32 Interval history: 81yo female with hx of HTN and PE on Eliquis here for increasing SOB. Patient hospitalized in June for shortness of breath with CTA of the chest showing several small right sided segmental pulmonary emboli. She had small right and trace left pleural effusions at that time. No DVT. She was also noted to have a gastric ulcer at that time. She was able to be started on anticoagulation without evidence of gross GI bleeding. She was discharged home on 07/27/2021. Repeat EGD on 10/24/2021 showed gastric polyp that was removed. The ulcer had healed. No follow-up lung imaging has been performed over the past 5 months. Patient has developed shortness of breath that has progressively worsened. Chest productive cough. She has pain in the chest in the flanks trying to take deep breaths. No rash or joint pain. No abdominal pain. No history of or exposure to TB. Exam Narrative: AF 98.2 162/77 101 16 100% 2L Gen - NARD Chest - decreased BS mid and lower lung dejesus bilaterally L>>R. no conversational dyspnea. CV - RRR S1/S2. Tele showing Paced rhythm Abd - Soft, NT/ND, Positive BS Ext - No pedal edema Psych - Nml mood and affect Skin - Warm and dry Objective Data Vital Signs Vital Signs: Vital Signs - 24 hr 12/03/21 15:51 12/03/21 15:52 12/03/21 16:00 Temperature Pulse Rate 82 90 99 Respiratory Rate 25 H 19 20 Blood Pressure Pulse Oximetry 92 92 92 Oxygen Delivery Oxygen Flow Rate 12/03/21 16:02 12/03/21 16:15 12/03/21 16:16 Temperature Pulse Rate 100 91 81 Respiratory Rate 19 18 21 H Blood Pressure 165/79 H 156/83 H Pulse Oximetry 94 94 94 Oxygen Delivery Oxygen Flow Rate 12/03/21 16:30 12/03/21 16:31 12/03/21 16:45 Temperature Pulse Rate 99 101 H 101 H Respiratory Rate 19 28 H 21 H Blood Pressure 140/82 Pulse Oximetry 93 93 94 Oxygen Delivery Oxygen Flow Rate 12/03/21 16:46 12/03/21 17:00 12/03/21 18:13 Temperature Pulse Rate 101 H 101 H Respiratory Rate 23 H 20 Blood Pressure 161/68 H Pulse Oximetry 94 94 96 Oxygen Delivery Nasal Cannula Oxygen Flow Rate 2 12/03/21 18:09 12/03/21 18:15 12/03/21 18:16 Temperature Pulse Rate 88 87 86 Respiratory Rate
[2021-12-04] MEDS: LOSARTAN POTASSIUM 50 MG TABLET 100 MG PO (16:00)
[2021-12-04] MEDS: PSYLLIUM POWDER PACKET 1 PACKET PO (16:01)
[2021-12-04] MEDS: FERROUS SULFATE 324 MG TABLET PO (17:30)
[2021-12-04] MEDS: OMEGA 3 POLYUNSAT FATTY ACIDS 1 GM CAP 2 GM PO (17:30)
[2021-12-04] MEDS: POTASSIUM CHLORIDE 10 MEQ TABLET.ER PO (17:30)
[2021-12-04] MEDS: PRAVASTATIN SODIUM 20 MG TABLET 40 MG PO (17:30)
[2021-12-04] MEDS: APIXABAN 5 MG TABLET PO (17:40)
[2021-12-04] MEDS: PANTOPRAZOLE 40 MG TABLET PO (20:30)
--- NOTE | 2021-12-04 21:45 | PC.NURSE ---
This patient, Ml Wells, was transferred to [[id number]] on 12/04/21 at 2146. Personal belongings sent with patient. Report given to [Brittaney costello ]. Appropriate documentation sent with patient.
[2021-12-05 05:41] VITALS: BP 135/91; PULSE 95; RESP 18; TEMP 36.8; O2SAT 98
[2021-12-05 06:30] LABS: Basophils Percent Auto 0.2 % (0.2-1.2); Eosinophils Percent Auto 0.1 % (0-4.4); Hematocrit 35.7 % (37.0-47.0); Hemoglobin 11.5 g/dL (12.0-15.0); Immature Granulocyte Absolute 0.07 K/mm3 (0.00-0.031); Immature Granulocyte Percent A 0.6 % (0-0.5); Lymphocytes Absolute Auto 0.87 K/mm3 (0.9-3.2); Lymphocytes Percent Auto 7.8 % (18.3-44.2); Mean Corpuscular HGB Conc 32.2 g/dl (32-36); Mean Corpuscular Hemoglobin 26.7 pg (26-34); Mean Platelet Volume 8.9 fl (7.4-10.4); Monocytes Absolute Auto 1.4 K/mm3 (0.1-0.6); Monocytes Percent Auto 12.7 % (2.6-8.5); Neutrophils Absolute Auto 8.8 K/mm3 (1.3-6.7); Neutrophils Percent Auto 78.6 % (45.5-73.1); Platelet Count Result 548 k/mm3 (150-375); Red Cell Distribution Width 16.9 % (11.5-14.5); White Blood Count 11.2 K/mm3 (4.5-10.0)
[2021-12-05 06:53] LABS: Albumin Level 3.4 g/dL (3.5-5.1); Anion Gap 8 mmol/L (8-16); Blood Urea Nitrogen 25 mg/dL (7-17); Calcium 8.6 mg/dL (8.4-10.2); Carbon Dioxide 20 mmol/L (22-30); Chloride 109 mmol/L (98-107); Estimated CRCL calculation 28 ml/min; Estimated Glomerular Filt Rate 43; Glucose 131 mg/dL (65-110); Magnesium 2.1 mg/dL (1.6-2.3); Phosphorus 3.6 mg/dL (2.5-4.5); Potassium 3.9 mmol/L (3.4-5.0); Sodium 137 mmol/L (137-145)
[2021-12-05 07:07] LABS: CRP 20.7 mg/dL (<1.0)
[2021-12-05] MEDS: APIXABAN 5 MG TABLET PO (08:12)
[2021-12-05] MEDS: FERROUS SULFATE 324 MG TABLET PO (08:12)
[2021-12-05] MEDS: LOSARTAN POTASSIUM 50 MG TABLET 100 MG PO (08:13)
[2021-12-05] MEDS: OMEGA 3 POLYUNSAT FATTY ACIDS 1 GM CAP 2 GM PO (08:13)
[2021-12-05] MEDS: PSYLLIUM POWDER PACKET 1 PACKET PO (09:53)
[2021-12-05] MEDS: CYANOCOBALAMIN INJ 1,000 MCG/ML VIAL 1000 MCG IM (14:16)
[2021-12-05 14:33] VITALS: BP 96/54; PULSE 99; RESP 19; TEMP 36.8; O2SAT 96
--- NOTE | 2021-12-05 15:33 | PM.DS ---
DS: Admitting Diagnosis Discharge Date 12/05/21 Admitting Diagnosis Shortness of breath DS: Discharge Diagnosis Discharge Diagnosis (1) Bilateral pleural effusion: Code(s): J90 - Pleural effusion, not elsewhere classified Status: Acute Assessment and Plan: Patient has a significantly large bilateral L>>R pleural effusion. Patient was on Eliquis which was held and underwent US guided thoracentesis with removal of 1L of dark reddish fluid. Gram stain showing no organisms but multiple WBCs. No cell count but 56% Neutrophils. pH normal. BCx NGTD. Other lab workup pending. Plan to have her follow-up with Pulmonary since her PCP is retiring in the next month or so. Spoke with Pulmonary who agreed to see the patient in the clinic. Hospital course discussed. (2) Essential hypertension: Code(s): I10 - Essential (primary) hypertension Status: Chronic Assessment and Plan: Patient's blood pressure was monitored closely. Blood pressure was elevated at times but better once her medications resumed. (3) Pulmonary emboli: Qualifiers: Pulmonary embolism type: multiple subsegmental (without acute cor pulmonale) Qualified Code(s): I26.94 - Multiple subsegmental pulmonary emboli without acute cor pulmonale Code(s): I26.99 - Other pulmonary embolism without acute cor pulmonale Status: Acute Assessment and Plan: Patient's anticoagulation was placed on hold for thoracentesis. Thoracentesis showing reddish fluid but Hgb stable at 11 range. Spoke with pulmonary who recommended resuming oral anticoagulation. (4) Community acquired pneumonia: Code(s): J18.9 - Pneumonia, unspecified organism Status: Acute Assessment and Plan: Patient received Levaquin 750 mg in the emergency room. Based on patient's kidney function she was changed to 750 mg every 48 hours. BCx NGTD. Continue treatment as outpatient. (5) B12 deficiency anemia: Code(s): D51.9 - Vitamin B12 deficiency anemia, unspecified Status: Acute Assessment and Plan: B12 level low at 191. B12 injection given. Will arrange for weekly B12 replacement. Also add oral B12 replacement. DS: Summary Hospital Course Reason for hospitalization: 81yo female with hx of HTN and PE on Eliquis here for increasing SOB. Please see H&P for details Hospital Course: Please see above for details of hospital course Status at Discharge Cognitive/behavioral status at discharge: stable Time Spent with Patient Time attestation: Total time spent providing and/or coordinating discharge services:35 minutes Exam Narrative: AF 98.3 110/60 99 19 96% 2L Gen - NARD Chest - decreased breath sounds mid and lower lung dejesus bilaterally L>>R. no conversational dyspnea. CV - RRR S1/S2 Abd - Soft, NT/ND, Positive BS Ext - trace pedal edema Psych - Nml mood and affect Skin - Warm and dry DS: Data Data Completed and Pending Pending studies at discharge: Pending at discharge 12/04/21 08:13 Cytology [PTH] Routine Labs on day of discharge: Labs from last 24 hours 12/05/21 12/05/21 12/05/21 05:55 05:55 05:55 WBC 11.2 H RBC 4.30 Hgb 11.5 L Hct 35.7 L MCV 83.0 MCH 26.7 MCHC 32.2 RDW 16.9 H Plt Count 548 H MPV 8.9 Immature Gran % (Auto) 0.6 H Neut % (Auto) 78.6 H Lymph % (Auto) 7.8 L [place] % (Auto) 12.7 H Eos % (Auto) 0.1 Baso % (Auto) 0.2 Lymph # (Auto) 0.87 L [place] # (Auto) 1.4 H Eos # (Auto) 0.0 Baso # (Auto) 0.0 Abs Immat Gran (auto) 0.07 H Absolute Neuts (auto) 8.8 H Absolute Nucleated RBC 0.0 Nucleated RBC % 0.0 Sodium 137 Potassium 3.9 Chloride 109 H Carbon Dioxide 20 L Anion Gap 8 BUN 25 H Creatinine 1.20 H Estim Creat Clear Calc 28 Estimated GFR 43 L Glucose 131 H Calcium 8.6 Phosphorus 3.6 Magnesium 2.1 C-Reactive Protein
[2021-12-05 15:40] VITALS: BP 110/60
[2021-12-05 16:34] LABS: Lactate Dehydrogenase 801 U/L (313-618)
[2021-12-06 16:39] LABS: Glucose Pleural Fluid 97 mg/dL; LDH Pleural Fluid 936 U/L; Total Protein Pleural Fluid 3.5 g/dL
[2021-12-10 06:28] LABS: Methylmalonic Acid 226 nmol/L (87-318)
--- NOTE | 2021-12-11 09:29 | PC.NURSE ---
Blood cx are negative. PAthology report is still pending. Dr. Meeks aware. Patient readmitted at this time.
--- NOTE | 2021-12-13 09:11 | PC.NURSE ---
Faxed pathology report to Dr. Norwood. Dr. Meeks aware of findings.
== END 2021-12-05 16:45 | disposition home or self-care (01) | DRG 186 ==
LOC: ANHED 17:25 → ANHIMU 19:14 → ANH3MEDSUR 12-04 21:44
PROVIDERS: Nurse Practitioner Adult Health; Admitting Provider Internal Medicine; Emergency Provider Emergency Medicine; PCP Internal Medicine; Visit Provider Internal Medicine
DX: J90 Pleural effusion, not elsewhere classified (principal); J18.9 Pneumonia, unspecified organism; I10 Essential (primary) hypertension; D51.9 Vitamin B12 deficiency anemia, unspecified; Z20.822 Contact with and (suspected) exposure to COVID-19; K21.9 Gastro-esophageal reflux disease without esophagitis; E78.5 Hyperlipidemia, unspecified; M19.90 Unspecified osteoarthritis, unspecified site; Z95.0 Presence of cardiac pacemaker; Z86.711 Personal history of pulmonary embolism; Z85.038 Personal history of other malignant neoplasm of large intestine; Z79.01 Long term (current) use of anticoagulants
CPT/HCPCS: 32555; 36415; 71045; 71250; 80053; 80069; 82607; 82945; 83605; 83615; 83735; 83880; 83921; 83986; 84157; 84484; 85025; 85610; 85730; 86140; 87040; 87070; 87075; 87205; 88104; 88108; 88184; 88305; 88313; 88342; 89051; 93005; 96365; 96367; 99285; A9270; C9803; G0378; J1956; J3420; J3475; U0003; U0005

== ENCOUNTER 2021-12-11 00:02 | Inpatient (IN) | payer MEDICARE, SELFPAY ==
[2021-12-11] VITALS (18 sets, daily range): BP systolic 100–176; BP diastolic 50–95; PULSE 74–104; RESP 18–28; TEMP 36.1–36.6; O2SAT 95–99; BMI 23.8
--- NOTE | 2021-12-11 | ECHO_ITS ---
Patient Info Name: Ml Wells Age: 81 years : 1940 Gender: Female Ht: 63 in Wt: 134 lbs BSA: 1.65 m2 HR: 90 bpm BP: 131 / 71 mmHg Heart Rhythm: Sinus Rhythm Technical Quality: Fair Exam Date: 12/11/2021 7:27 AM Exam Location: [facility] Pulmonary Patient Status: Outpatient Admit Date: 12/11/2021 Staff Ordering Physician: Yaima Lunsford MD Blanket Winder Operator: Yaritza Farris RDCS Attending Provider: Yaima Lunsford MD Referring Physician: Isatu TREJO; Exam Type: CA echo doppler color flow Study Info Indications - Recurrent plueral effusion Complete two-dimensional, color flow and Doppler transthoracic echocardiogram is performed. Summary 1. Complete two-dimensional, color flow and Doppler transthoracic echocardiogram is performed. 2. Left ventricular chamber dimension is normal. 3. Left ventricular systolic function is normal, estimated at 65-70%. 4. There is mildly increased left ventricular wall thickness with sigmoid septum. 5. The left ventricular diastolic function is grade I diastolic dysfunction. 6. There is no aortic valve stenosis. 7. There is trace mitral valve regurgitation. 8. There is trace tricuspid valve regurgitation. 9. Moderate pulmonary hypertension, estimated pulmonary arterial systolic pressure is 47 mmHg. 10. There is small pericardial effusion. 11. Large left pleural effusion. 12. Ascites noted. Left Ventricle Left ventricular chamber dimension is normal. Left ventricular systolic function is normal, estimated at 65-70%. There is mildly increased left ventricular wall thickness with sigmoid septum. The left ventricular diastolic function is grade I diastolic dysfunction. Right Ventricle Right ventricular chamber dimension is normal. Right ventricular systolic function is normal. Linear artifact in right ventricle suggestive of catheter(s), pacemaker lead(s), or ICD lead(s). Left Atria Left atrial chamber dimension is normal. Right Atria Right atrial chamber dimension is normal. Linear artifact in the right atrium suggestive of catheter(s), pacemaker lead(s), or ICD lead(s). Aortic Valve The aortic valve is not well visualized. There is no aortic valve stenosis. There is no aortic valve regurgitation. There is mild aortic valve calcification. Pulmonic Valve The pulmonic valve is not well visualized. There is trace pulmonic regurgitation. Mitral Valve The mitral valve has thickened leaflets. There is trace mitral valve regurgitation. The mitral valve annulus is severely calcified. Tricuspid Valve The tricuspid valve leaflets are normal. There is trace tricuspid valve regurgitation. Moderate pulmonary hypertension, estimated pulmonary arterial systolic pressure is 47 mmHg. Pericardium/Pleural The pericardium appears normal. There is small pericardial effusion. Large left pleural effusion. Ascites noted. Inferior Vena Cava Normal inferior vena cava with >50% collapse upon inspiration consistent with normal right atrial pressure, 5 mmHg. Aorta The aortic root size at the sinus of Valsalva is normal. The prox ascending aorta size is normal. There is mild aortic atherosclerosis. Left Ventricular Outflow Tract Name Value Normal LVOT 2D
--- NOTE | ~2021-12-11 | CT_ITS ---
EXAMINATION: CT biopsy abdomen percutaneous DATE: 12/14/2021 15:30 INDICATION: Peritoneal carcinomatosis. TECHNIQUE: The procedure including the risks, benefits, and alternatives was discussed with the patie nt. Risks discussed included bleeding and infection. The patient verbalized understanding of the risk s and agreed to proceed. The skin overlying the liver was prepped and draped in usual sterile fashio n. Anesthetic was administered with 1% lidocaine subcutaneously. A 16 gauge outer needle was advanc ed under CT guidance into the liver. An 18 gauge core biopsy needle was then used to obtain several c ore biopsy specimens. The mA was adjusted according to patient size. Iterative reconstruction [employer] ue was employed. The dose-length product was 142.11 mGy-cm. The needle was removed and the entry site was cleaned and dressed. There were no immediate complications. FINDINGS: CT images demonstrate the outer needle tip adjacent to peritoneal masses in left paracolic gutter. IMPRESSION: 1. CT-guided core needle biopsy of small peritoneal masses in left paracolic gutter. Reviewed, dictated and finalized at location A. IMPRESSION: 1. CT-guided core needle biopsy of small peritoneal masses in left paracolic g utter.
--- NOTE | ~2021-12-11 | XR_ITS ---
EXAMINATION: XR chest 1V portable DATE: 12/11/2021 00:43 INDICATION: Dyspnea. TECHNIQUE: A single frontal view of the chest was obtained. COMPARISON: Chest single view 12/04/2021, chest CT 12/03/2021 FINDINGS: There are moderate-sized pleural effusions. A calcified left lung nodule and calcified para esophageal lymph node are consistent with old granulomatous disease. There are airspace opacities at the lung bases. No pneumothorax. The heart size is obscured. There is a left chest wall pacer with le ads in the right atrium and right ventricle. IMPRESSION: 1. Moderate-sized pleural effusions with worsening on the right. 2. Airspace opacities at the lung bases, consistent with atelectasis versus pneumonia. Reviewed, dictated and finalized at location A. IMPRESSION: 1. Moderate-sized pleural effusions with worsening on the right. 2. Airspace opacities at the lung bases, consistent with atelectasis versus pne umonia.
--- NOTE | ~2021-12-11 | CT_ITS ---
EXAMINATION: CT abdomen pelvis wo con DATE: 12/11/2021 17:41 INDICATION: lung cancer and h/o colon cancer TECHNIQUE: Computed tomography (CT) of the abdomen and pelvis was performed without intravenous contr ast. Automated exposure control and iterative reconstruction technique were employed. The dose-length product was 345.11 mGy-cm. COMPARISON: CT chest 12/03/2021. FINDINGS: Lower thorax: Incompletely visualized pacer wires. Severe coronary artery calcification. Mitral calci fication. Large right and moderate left pleural effusions, with bilateral lower lobe atelectasis/cons olidation. Dense calcification in the medial left lower lung. Liver: Normal. Biliary/Gallbladder: Gallbladder is normal. No bile duct dilation. Pancreas: No mass or duct dilation. Atrophy. Spleen: Normal. Granulomatous calcifications. Adrenals:No mass. Kidneys: Punctate nonobstructive calcifications. Mild bilateral atrophy. No mass. No hydronephrosis. GI tract: No small or large bowel dilation. Appendix not visualized. Conglomeration of large and smal l bowel in the left mid abdomen with surrounding inflammatory changes and possible small bowel wall t hickening. Mesentery/Peritoneum: Omental thickening and nodularity. Retroperitoneum: No mass. Atherosclerotic abdominal aortic and/or arterial calcifications. Periaortic lymphadenopathy. Pelvis: Pelvic organs are within normal limits. Soft Tissues: Soft tissues and body wall unremarkable. Bones: No acute osseous finding. IMPRESSION: Large right and moderate left pleural effusions. Findings concerning for omental metastases. Periaort ic lymphadenopathy. Conglomerate mass of large and small bowel in the left mid abdomen, with possible wall thickening and inflammatory change, difficult to evaluate without intraluminal or intravenous c ontrast, but no obstruction at this time. Reviewed, dictated and finalized at location K. IMPRESSION: Large right and moderate left pleural effusions. Findings concerning for omenta l metastases. Periaortic lymphadenopathy. Conglomerate mass of large and small bowel in the left mid abdomen, with possible wall thickening and inflammatory c hange, difficult to evaluate without intraluminal or intravenous contrast, but no obstruction at this time.
--- NOTE | 2021-12-11 00:12 | ECG_ITS ---
Measurements Intervals [place] Rate: 85 P: 25 WY: 155 QRS: -6 QRSD: 65 T: -24 QT: 328 QTc: 391 Interpretive Statements SINUS RHYTHM BASELINE ARTIFACT LOW QRS VOLTAGE IN PRECORDIAL LEADS ST DEVIATION AND MODERATE T-WAVE ABNORMALITY, CONSIDER ANTERIOR ISCHEMIA ABNORMAL ECG COMPARED TO ECG 12/03/2021 13:52:30 HEART RATE HAS DECREASED AND VENTRICULAR PACING NO LONGER APPRECIATED Electronically Signed On 12-11-2021 14:30:23 CDT by Tan Walters M.D.
--- NOTE | 2021-12-11 00:21 | ED.SOB ---
HPI - SOB/Dyspnea General Chief Complaint: Shortness of Breath/Dyspnea Stated Complaint: shortness of breath Time Seen by Provider: 12/11/21 00:07 History of Present Illness HPI Narrative: 81-year-old female presents emergency room accompanied by her . She presents secondary to progressive and worsening dyspnea. Patient was just discharged from our hospital last Saturday. When she was in the hospital at that time she was noted to have bilateral pulmonary effusions the left much larger than the right. She had a thoracentesis performed at that time. When she went home she was feeling much better. And then throughout the last 2 to 3 days she has been progressively more short of breath just like she was when she came into the house. She was placed on Levaquin for presumed pneumonia and she states she is continue to take that as she was discharged. She was due to follow-up with a restaurant service manager but not been able to make an appointment to get followed up at this point. She denies any chest pain. They do have a pulse oximetry at home has been running in the upper 90s. She has had some mild swelling to her lower extremities. Patient was diagnosed with a pulmonary embolism in June of this year was on Eliquis. They stopped the Eliquis last week in order to facilitate getting a thoracentesis performed. Related Data Home Medications Medication Instructions Recorded Confirmed potassium chloride 10 mEq 10 meq PO QMWF 08/25/19 12/03/21 capsule,extended release pravastatin 40 mg tablet 40 mg PO QPM 08/25/19 12/03/21 losartan 50 mg tablet 100 mg PO DAILY 08/08/20 12/03/21 omega 0-hsg-zqu-fish oil 300 2 cap PO DAILY 07/21/21 12/03/21 mg-1,000 mg capsule (Fish Oil) ferrous sulfate 325 mg (65 mg 324 mg PO DAILY 09/25/21 12/03/21 iron) tablet psyllium husk 3.4 gram/5.4 gram 2 tsp PO DAILY PRN Constipation 09/25/21 12/03/21 oral powder (Metamucil) apixaban 5 mg tablet (Eliquis) 5 mg PO BID 10/24/21 12/04/21 pantoprazole 40 mg tablet,delayed 40 mg PO HS 12/03/21 12/03/21 release Allergies Allergy/AdvReac Type Severity Reaction Status Date / Time No Known Allergies Allergy Verified 12/11/21 00:16 Review of Systems Review of Systems: CONSTITUTIONAL: Denies fever, chills, or sweats. EYES: Denies visual changes, redness, or discharge. ENT: Denies rhinorrhea, congestion, sore throat, or otalgia. CARDIOVASCULAR: Denies chest pain, palpitations, or edema. RESPIRATORY: Extremely dyspneic. No cough. GASTROINTESTINAL: Denies abdominal pain, nausea, vomiting, or diarrhea. GENITOURINARY: Denies dysuria or hematuria. SKIN: Denies rash or itching. MUSCULOSKELETAL: Denies back pain, joint pain, or myalgia. NEUROLOGIC: Denies headache, numbness, or weakness. PSYCHIATRIC: Denies anxiety or depression. [facility] Past Medical History Medical History Body mass index (bmi) 25.0-25.9, adult (02/25/19) Chronic GERD Dizziness Dyslipidemia Essential hypertension History of IBS History of mitral valve prolapse Hx of cardiac pacemaker Hyperlipidemia Osteoarthritis Pulmonary emboli Surgical History Surgical History History of colon resection History of hemorrhoidectomy Family History Family History Father Cerebrovascular accident, Onset Age: 88 Mother Family history of arthritis, Onset Age: 85 Social History Social History Social History: the patient lives with her and he is the durable power blower and compressor assembler for healthcare. The patient has no children. The patient used to work for an [employer]. She is a lifelong nonsmoker. She does not use any alcohol marijuana or illicit drugs. Code status full code Smoking status: Never smoker Second hand tobacco smoke exposure: No A
[2021-12-11 00:33] LABS: Basophils Percent Auto 0.3 % (0.2-1.2); Eosinophils Absolute Auto 0.1 K/mm3 (0-0.3); Eosinophils Percent Auto 0.9 % (0-4.4); Hemoglobin 10.4 g/dL (12.0-15.0); Immature Granulocyte Absolute 0.05 K/mm3 (0.00-0.031); Immature Granulocyte Percent A 0.6 % (0-0.5); Lymphocytes Absolute Auto 0.94 K/mm3 (0.9-3.2); Lymphocytes Percent Auto 10.6 % (18.3-44.2); Mean Corpuscular HGB Conc 30.6 g/dl (32-36); Mean Corpuscular Hemoglobin 26.3 pg (26-34); Mean Corpuscular Volume 86.1 fl (80-100); Mean Platelet Volume 8.3 fl (7.4-10.4); Monocytes Percent Auto 10.8 % (2.6-8.5); Neutrophils Absolute Auto 6.8 K/mm3 (1.3-6.7); Neutrophils Percent Auto 76.8 % (45.5-73.1); Platelet Count Result 518 k/mm3 (150-375); Red Blood Count 3.95 M/mm3 (4.2-5.4); Red Cell Distribution Width 16.5 % (11.5-14.5); White Blood Count 8.9 K/mm3 (4.5-10.0)
[2021-12-11 00:44] LABS: Alanine Aminotransferase 45 U/L (6-35); Albumin Level 3.2 g/dL (3.5-5.1); Alkaline Phosphatase 93 U/L (38-126); Anion Gap 5 mmol/L (8-16); Aspartate Amino Transferase 46 U/L (14-36); Bilirubin,Total 0.5 mg/dL (0.2-1.3); Blood Urea Nitrogen 35 mg/dL (7-17); Calcium 8.7 mg/dL (8.4-10.2); Carbon Dioxide 22 mmol/L (22-30); Chloride 108 mmol/L (98-107); Estimated CRCL calculation 30 ml/min; Estimated Glomerular Filt Rate 48; Glucose 120 mg/dL (65-110); Potassium 4.1 mmol/L (3.4-5.0); Sodium 135 mmol/L (137-145)
--- NOTE | 2021-12-11 00:46 | PM.IMHP ---
H&P: HPI History of Present Illness Date/Time: 12/11/21 00:46 Chief Complaint: Shortness of breath Narrative: This is an 81-year-old female with past medical history significant for diastolic heart failure, pacemaker, thromboembolism on anticoagulation at home patient just recently discharged after she was evaluated for large sided left pleural effusion with thoracentesis also treated for pneumonia with Levaquin however patient comes back today due to worsening shortness of breath which is now present at rest as well has had a cough productive of clear phlegm, no leg swelling, no palpitations, no chest pain, no dizziness, no syncope, no near syncope, no fevers, no rigors, no chills,. In emergency room chest x-ray revealed bilateral large pleural effusions. Patient is been admitted for further evaluation, management and treatment. Review of Systems Review of Systems: Shortness of breath, productive cough of clear phlegm. Constitutional: Constitutional: Denies chills, Denies fever(s), Denies malaise, Denies night sweats and Reports weight loss (14 lb roughly) Eyes: Eyes: Denies change in vision ENT: Denies dysphagia, Denies vertigo, Denies dizziness, Denies nasal congestion, Denies nasal discharge, Denies nasal obstruction and Denies odynophagia Cardiovascular: Cardiovascular: Denies chest pain, Denies syncope, Denies pedal edema, Denies edema, Denies irregular heart rhythm, Denies leg edema, Denies lightheadedness and Denies palpitations Respiratory: Respiratory: Reports cough, Denies hemoptysis, Reports excessive phlegm production, Denies pain on inspiration, Denies pain with cough, Reports dyspnea and Reports dyspnea on exertion Gastrointestinal: Gastrointestinal: Denies abdominal pain, Denies dyspepsia, Denies heartburn, Denies nausea and Denies vomiting Genitourinary: Genitourinary: Denies dysuria Musculoskeletal: Musculoskeletal: Denies back pain, Denies arthralgias and Denies joint swelling Integumentary/Breasts: Skin/Breast: Denies rash Psychiatric: Psychiatric: Reports no additional psychiatric complaints and Reports as per HPI Endocrine: Endocrine: Denies cold intolerance, Denies fatigue, Denies flushing, Denies heat intolerance, Denies polyphagia, Denies polydipsia and Denies palpitations Hematologic/Lymphatic: Hematologic/Lymphatic: Reports no additional hematologic/lymphatic complaints and Reports as per HPI Allergic/Immunologic: Allergic/Immunologic: Reports no additional allergic/immunologic complaints and Reports as per HPI PMFSH Past Medical History Medical History Body mass index (bmi) 25.0-25.9, adult (02/25/19) Chronic GERD Dizziness Dyslipidemia Essential hypertension History of IBS History of mitral valve prolapse Hx of cardiac pacemaker Hyperlipidemia Osteoarthritis Pulmonary emboli Surgical History Surgical History History of colon resection History of hemorrhoidectomy Family History Family History Father Cerebrovascular accident, Onset Age: 88 Mother Family history of arthritis, Onset Age: 85 Social History Social History Social History: the patient lives with her and he is the durable power attorney law clerk for healthcare. The patient has no children. The patient used to work for an [employer]. She is a lifelong nonsmoker. She does not use any alcohol marijuana or illicit drugs. Code status full code Smoking status: Never smoker Second hand tobacco smoke exposure: No Alcohol intake: never Substance use: never Substance use type: does not use Gender identity (if verbalized by the patient): Male Spiritual care concerns: No Meds Home Medications and Allergies Home Medications Medication Instructions Recorded C
[2021-12-11 00:57] LABS: NT Pro B Type Natriuretic Pept 311 pg/mL (5-100); Troponin I < 0.012 ng/mL (0.000-0.034)
--- NOTE | 2021-12-11 02:20 | ADMGEN ---
This patient, Ml Wells, was admitted to IMU Room 202-01 at 0220. Patient/family oriented to hospital policies and general routines including ID bracelet, bed and alarms, visiting hours, pain management, procedures, bathroom and other care routines, personal items, smoking policy, room service/diet, and visiting hours. Information on how to activate the Rapid Response Team has been discussed. Patient/Family are encouraged to report perceived risks to care and to ask questions if they do not understand what they are told or what they should do.
--- NOTE | 2021-12-11 02:27 | ADMGEN ---
This patient, Ml Wells, was admitted to IMU Room 202-. Patient/family oriented to hospital policies and general routines including ID bracelet, bed and alarms, visiting hours, pain management, procedures, bathroom and other care routines, personal items, smoking policy, room service/diet, and visiting hours. Information on how to activate the Rapid Response Team has been discussed. Patient/Family are encouraged to report perceived risks to care and to ask questions if they do not understand what they are told or what they should do.
[2021-12-11 03:51] LABS: Basophils Percent Auto 0.5 % (0.2-1.2); Eosinophils Absolute Auto 0.1 K/mm3 (0-0.3); Hematocrit 31.7 % (37.0-47.0); Immature Granulocyte Absolute 0.05 K/mm3 (0.00-0.031); Immature Granulocyte Percent A 0.6 % (0-0.5); Lymphocytes Absolute Auto 0.81 K/mm3 (0.9-3.2); Lymphocytes Percent Auto 9.8 % (18.3-44.2); Mean Corpuscular HGB Conc 31.5 g/dl (32-36); Mean Corpuscular Hemoglobin 26.7 pg (26-34); Mean Corpuscular Volume 84.8 fl (80-100); Mean Platelet Volume 8.2 fl (7.4-10.4); Monocytes Absolute Auto 0.8 K/mm3 (0.1-0.6); Monocytes Percent Auto 9.8 % (2.6-8.5); Neutrophils Absolute Auto 6.5 K/mm3 (1.3-6.7); Neutrophils Percent Auto 78.3 % (45.5-73.1); Platelet Count Result 486 k/mm3 (150-375); Red Blood Count 3.74 M/mm3 (4.2-5.4); Red Cell Distribution Width 16.5 % (11.5-14.5); White Blood Count 8.3 K/mm3 (4.5-10.0)
[2021-12-11 04:04] LABS: INR 1.6
[2021-12-11 04:05] LABS: Partial Thromboplastin Time 40.9 SECONDS (22.3-36.8)
[2021-12-11] MEDS: HEPARIN SOD/D5W 100 UNITS/ML 25,000 UNITS/250 ML BAG 11 UNITS IV CONT (04:32)
[2021-12-11] MEDS: LOSARTAN POTASSIUM 50 MG TABLET 100 MG PO (08:35)
[2021-12-11] MEDS: FUROSEMIDE INJ 40 MG/4 ML VIAL IV PUSH ×2 (08:35→17:14)
--- NOTE | 2021-12-11 09:20 | PC.NURSE ---
Spoke with Dr. Corona regarding thoracentesis. New orders to make thoracentesis diagnostic not therapeutic. Labs entered per verbal orders from Dr. Corona at computer side w/ RN.
--- NOTE | 2021-12-11 09:35 | PC.NURSE ---
Heparin held d/t protocol for ultrasound guided thoracentesis
[2021-12-11 10:06] LABS: INR 1.5; Prothrombin Time 17.3 Seconds (11.1-14.7)
[2021-12-11 10:08] LABS: Partial Thromboplastin Time 80.1 SECONDS (22.3-36.8)
--- NOTE | 2021-12-11 10:25 | PC.NURSE ---
Pt to ultrasound via stretcher for thoracentesis
[2021-12-11 10:40] LABS: Lactate Dehydrogenase 781 U/L (313-618)
--- NOTE | 2021-12-11 10:41 | PC.NURSE ---
Pt not to ultrasound per Dr. Maddox. Dr. Maddox entered room as transport was taking patient and wants to reach out to Dr. Mosher prior to thoracentesis being performed. Pt may need another procedure as there are malignant cells present in the fluid from last week (per Dr. Maddox after speaking with pathologist). Awaiting to see if both procedures can be performed at the same time. Will inform ultrasound of MD's plan, once in place. Will continue to monitor
--- NOTE | 2021-12-11 11:52 | PM.CNPUL ---
Assessment and Plan Assessment and plan (1) Bilateral pleural effusion: Code(s): J90 - Pleural effusion, not elsewhere classified Status: Acute Assessment and Plan: Patient with a history of right-sided pulmonary embolism on 07/21/2021 following about of COVID in . CT scan at that showed I am showed very small right pleural effusion and a trace left pleural effusion. Patient presents now on 12/03/2021 with a large left pleural effusion status post thoracentesis with malignant cells. Special stains and final pathologic report are pending and I spoke with the pathologist this morning and he told me there are malignant cells and the official report should be out later today or tomorrow. Patient has reaccumulated this malignant left pleural effusion in the last 6 days. I spoke with Hematology, Dr. Mosher, and at this time we feel it was most appropriate to transfer patient for thoracic surgery consultation regarding a left-sided pleurodesis given her left pleural effusion reaccumulated in the last week. The plan is to transfer patient to [facility] with consultation from thoracic surgeon, Dr. Lory Alvarez. At this time will restart the heparin drip and I have spoken to Dr. Corona, hospitalist, who will initiate transfer to [facility]. This morning I did speak with the patient and her who was on speaker phone and told them that transfer to a facility that could perform pleurodesis was a likely option. Will follow with you. History of Present Illness History of Present Illness Consult date: 12/11/21 Chief complaint: Bilateral Pleural Effusions,Dyspnea,History of PE Narrative: 12/11/2021: This is a new Pulmonary consult for malignant left pleural effusion. 81-year-old woma with a history of diastolic heart failure, permanent pacemaker, COVID in , right pulmonary embolism in 07/21/2021 on home Eliquis. Patient was recently admitted to [facility] from 12/03 through 11/22/2021 and she had a large left pleural effusion. Her prior CT scan on 07/21/2021 demonstrated very small right and trace left pleural effusion with no evidence of cancer. On 12/04/2021 the patient underwent left thoracentesis with 1000 mL of dark red fluid removed, G stain with no organisms and no white blood cells, pH 7.40, the specimen was clotted and cell counts were not performed. Differential was neutrophils 56, lymphocytes 28, monocytes 4, macrophages 12. This was exudative with a pleural LDH of 936 and a serum LDH of 801 with a ratio of 1.17. Pleural total protein 3.5 with a serum total protein of 6.0 for ratio of 0.58. Glucose was 97. Patient felt immediately better after they remove the 1000 mL. Post thoracentesis chest x-ray demonstrated a continued large left pleural effusion. Patient was 90% better and went home. Since she has been at home she developed progressively worsening shortness of breath such that she had dyspnea on exertion walking across the room. She denied fever, chills, rigors, Minimal clear phlegm production, cough, chest pain or hemoptysis. She checked her home pulse oximetry and on room air was 97-98%. patient tells me she is a never smoker. She was exposed to secondhand smoke from [id number] from her . She denies vaping, illicit drug use, sandblasting, welding, asbestos were, professional painting, or steel repair miller. 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 patient has lost 12/13 lb over the last 6 months. I speak spoke with the pathologist this morning and he said that the left pleural effusion from 12/04 is malignant. Special stains to further characterize the malignant cells are pending. The final interpretation should be released today or tomorrow. Patient was patient was admitted and Eliquis was held and started on an IV heparin drip in anticipation of another left thoracentesis. last dose of Eliquis was on 12/10 at 9:00 p.m. Patient was has a moderate right pl
--- NOTE | 2021-12-11 12:00 | PC.NURSE ---
Dr. Maddox returned call to RN after speaking with Dr. Mosher and Dr. Corona regarding treatment plan for patient. New plan is to cancel thoracentesis today, restart heparin drip, and start transfer process to [facility] for appropriate care and treatment for patient.
[2021-12-11] MEDS: CYANOCOBALAMIN 1,000 MCG TABLET 1000 MCG PO (12:09)
[2021-12-11] MEDS: FERROUS SULFATE 324 MG TABLET PO (12:09)
[2021-12-11] MEDS: PSYLLIUM POWDER PACKET 1 PACKET PO (12:09)
[2021-12-11] MEDS: OMEGA 3 POLYUNSAT FATTY ACIDS 1 GM CAP 2 GM PO (12:09)
--- NOTE | 2021-12-11 12:48 | PDONCCN ---
HPI - Date of Consult Date/Time: 12/11/21 12:48 Requesting Physician: Yaima Lunsford MD Primary Care Provider: Apollo Norwood, MD - Consult Narrative Reason for consult: Lung cancer Narrative: Ml Wells is a 81 year old female This is the 81-year-old pleasant female who has been a lifetime nonsmoker with a history of early stage colon cancer status post resection 50 years ago came into the hospital with shortness of breath. She also has a history of PE diagnosed in June of 2021 and has been taking Eliquis. Doppler study did not show any DVT. She had COVID infection in May of 2021. Patient was initially admitted to the hospital on December 03 with shortness of breath. CT chest showed large left and moderate right-sided pleural effusion. There were mediastinal and pericardiac lymphadenopathy. Patient had left-sided ultrasound-guided thoracentesis done with removal of 1000 mL of dark reddish fluid. 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 Patient came back into the hospital again on December 11 with shortness of breath. Chest x-ray was performed that showed moderate-sized pleural effusion with worsening on the right side along with airspace opacity in the lung bases consistent with atelectasis versus pneumonia. Clinically she has lost almost 14 lb weight unintentionally in the last 6 months duration. She has some cough without any hemoptysis. She has shortness of breath but no chest pain. Denies any bone pain. Denies any GI bleeding. No other new complaints. Review of Systems - Review of Systems All systems reviewed & are unremarkable except as noted in HPI and bel - Neurologic Reports system reviewed and no additional complaints, except as documented, Denies vertigo, Denies syncope [facility] Medical History: Medical History (Last Reviewed 12/11/21 @ 00:23 by José Miguel Berrios DO) Body mass index (bmi) 25.0-25.9, adult Onset Date: 02/25/19 Chronic GERD Dizziness Dyslipidemia Essential hypertension History of IBS History of mitral valve prolapse Hx of cardiac pacemaker Hyperlipidemia Osteoarthritis Pulmonary emboli Surgical History: Surgical History (Last Reviewed 12/11/21 @ 00:23 by José Miguel Berrios DO) History of colon resection History of hemorrhoidectomy Family History: Family History (Last Reviewed 12/11/21 @ 02:35 by Molly Cowan RN) Father Cerebrovascular accident, Onset Age: 88 Mother Family history of arthritis, Onset Age: 85 - Social History Social History: Social History (Last Reviewed 12/11/21 @ 00:23 by José Miguel Berrios DO) Gender Identity: Gender identity (if verbalized by the patient): Male Alcohol Use: Alcohol intake: never Substance Use: Substance use: never Substance use type: does not use Others: Spiritual care concerns: No Smoking Status: Smoking status: Never smoker Second hand tobacco smoke exposure: No Meds Home Medications Medication Instructions Recorded Confirmed Type potassium chloride 10 mEq 10 meq PO QMWF 08/25/19 12/11/21 History capsule,extended release pravastatin 40 mg tablet 40 mg PO QPM 08/25/19 12/11/21 History losartan 50 mg tablet 100 mg PO DAILY 08/08/20 12/11/21 History omega 1-jdh-gfb-fish oil 300 2 cap PO DAILY 07/21/21 12/11/21 History mg-1,000 mg capsule (Fish Oil) ferrous sulfate 325 mg (65 mg 324 mg PO DAILY 09/25/21 12/11/21 History iron) tablet psyllium husk 3.4 gram/5.4 gram 2 tsp PO DAILY PRN Constipation 09/25/21 12/11/21 History oral powder (Metamucil) apixaban 5 mg tablet (Eliquis) 5 mg PO BID 10/24/21 12/11/21 History pantoprazole 40 mg tablet,delayed 40 mg PO HS 12/03/21 12/11/21 History release cyanocobalamin (vitamin B-12) 1,000 mcg PO DAILY #30 caps 12/05/21 12/11/21 Rx 1,000 mcg capsule Allergies Allergy/Adv
[2021-12-11] MEDS: PRAVASTATIN SODIUM 20 MG TABLET 40 MG PO (17:13)
[2021-12-11 18:55] LABS: Partial Thromboplastin Time 85.9 SECONDS (22.3-36.8)
[2021-12-11] MEDS: PANTOPRAZOLE 40 MG TABLET PO (20:07)
[2021-12-12] VITALS (11 sets, daily range): BP systolic 111–172; BP diastolic 51–65; PULSE 85–93; RESP 18–22; TEMP 36.4–36.7; O2SAT 97–99
[2021-12-12 01:23] LABS: Basophils Percent Auto 0.2 % (0.2-1.2); Eosinophils Absolute Auto 0.1 K/mm3 (0-0.3); Eosinophils Percent Auto 0.6 % (0-4.4); Hematocrit 32.2 % (37.0-47.0); Hemoglobin 10.2 g/dL (12.0-15.0); Immature Granulocyte Absolute 0.05 K/mm3 (0.00-0.031); Immature Granulocyte Percent A 0.5 % (0-0.5); Lymphocytes Absolute Auto 0.79 K/mm3 (0.9-3.2); Lymphocytes Percent Auto 7.4 % (18.3-44.2); Mean Corpuscular HGB Conc 31.7 g/dl (32-36); Mean Corpuscular Hemoglobin 26.8 pg (26-34); Mean Corpuscular Volume 84.7 fl (80-100); Mean Platelet Volume 8.2 fl (7.4-10.4); Monocytes Absolute Auto 1.2 K/mm3 (0.1-0.6); Monocytes Percent Auto 11.1 % (2.6-8.5); Neutrophils Absolute Auto 8.5 K/mm3 (1.3-6.7); Neutrophils Percent Auto 80.2 % (45.5-73.1); Platelet Count Result 507 k/mm3 (150-375); Red Cell Distribution Width 16.6 % (11.5-14.5); White Blood Count 10.6 K/mm3 (4.5-10.0)
[2021-12-12 01:37] LABS: Partial Thromboplastin Time 157.2 SECONDS (22.3-36.8)
[2021-12-12] MEDS: HEPARIN SOD/D5W 100 UNITS/ML 25,000 UNITS/250 ML BAG 9 UNITS IV CONT (03:42)
[2021-12-12] MEDS: CYANOCOBALAMIN 1,000 MCG TABLET 1000 MCG PO (08:16)
[2021-12-12] MEDS: LOSARTAN POTASSIUM 50 MG TABLET 100 MG PO (08:16)
[2021-12-12] MEDS: PSYLLIUM POWDER PACKET 1 PACKET PO (08:16)
[2021-12-12] MEDS: FERROUS SULFATE 324 MG TABLET PO (08:16)
[2021-12-12] MEDS: OMEGA 3 POLYUNSAT FATTY ACIDS 1 GM CAP 2 GM PO (08:16)
[2021-12-12] MEDS: FUROSEMIDE INJ 40 MG/4 ML VIAL IV PUSH ×2 (08:16→17:18)
[2021-12-12 08:50] LABS: Partial Thromboplastin Time 96.4 SECONDS (22.3-36.8)
--- NOTE | 2021-12-12 08:51 | PM.PNPUL ---
Progress Note: A&P Assessment and Plan (1) Bilateral pleural effusion: Code(s): J90 - Pleural effusion, not elsewhere classified Status: Acute Assessment and Plan: 12/11 Patient with a history of right-sided pulmonary embolism on 07/21/2021 following about of COVID in . CT scan at that showed I am showed very small right pleural effusion and a trace left pleural effusion. Patient presents now on 12/03/2021 with a large left pleural effusion status post thoracentesis with malignant cells. Special stains and final pathologic report are pending and I spoke with the pathologist this morning and he told me there are malignant cells and the official report should be out later today or tomorrow. Patient has reaccumulated this malignant left pleural effusion in the last 6 days. I spoke with Hematology, Dr. Mosher, and at this time we feel it was most appropriate to transfer patient for thoracic surgery consultation regarding a left-sided pleurodesis given her left pleural effusion reaccumulated in the last week. The plan is to transfer patient to [facility] with consultation from thoracic surgeon, Dr. Lory Alvarez. At this time will restart the heparin drip and I have spoken to Dr. Corona, hospitalist, who will initiate transfer to [facility]. This morning I did speak with the patient and her who was on speaker phone and told them that transfer to a facility that could perform pleurodesis was a likely option. 12/12 patient states she is breathing better than yesterday. Patient denies phlegm or hemoptysis. Room air saturations 99%. White blood cell count 10.6. On IV Lasix 40 IV b.i.d. and has diuresed 2.4 L since admission. Awaiting transfer to [facility]. 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 Patient had a CT scan of the abdomen on 12/11 demonstrating evidence of omental metastasis with a large conglomerate mass of large and small bowel. Oncology is following. Discussed with Dr. Corona, jim sign off, call with questions. Subjective Date/time seen: 12/12/21 08:51 Interval history: 12/11/2021:? This is a new Pulmonary consult for malignant left pleural effusion. ? 81-year-old woma? with a history of diastolic heart failure, permanent pacemaker, COVID in , right pulmonary embolism in 07/21/2021 on home Eliquis. ? Patient was recently admitted to [facility] from 12/03 through 11/22/2021 and she had a large left pleural effusion.? Her prior CT scan on 07/21/2021 demonstrated very small right and trace left pleural effusion with no evidence of cancer.? On 12/04/2021 the patient underwent left thoracentesis with 1000 mL of dark red fluid removed, ? G stain with no organisms and no white blood cells, pH 7.40, the specimen was clotted and cell counts were not performed.? Differential was neutrophils 56, lymphocytes 28, monocytes 4, macrophages 12.? This was exudative with a pleural LDH of 936 and a serum LDH of 801 with a ratio of 1.17.? Pleural total protein 3.5 with a serum total protein of 6.0 for ratio of 0.58.? Glucose was 97. ? Patient felt immediately better after they remove the 1000 mL.? Post thoracentesis chest x-ray demonstrated a continued large left pleural effusion. ? Patient was 90% better and went home.? Since she has been at home she developed progressively worsening shortness of breath such that she had dyspnea on exertion walking across the room.? She denied fever, chills, rigors, ? Minimal clear phlegm production, cough, chest pain or hemoptysis.? She checked her home pulse oximetry and on room air was 97-98%. ?patient tells me she is a never smoker.? She was exposed to secondhand smoke from [id number] from her .? She denies vaping, illicit drug use, sandblasting, welding, asbestos were, professional painting, or steel miller supervisor.? 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 patient has lost 06/05 lb ove
[2021-12-12] MEDS: CYANOCOBALAMIN INJ 1,000 MCG/ML VIAL 1000 MCG IM (10:56)
--- NOTE | 2021-12-12 10:59 | PC.NURSE ---
This patient, Ml Wells, was transferred to [[facility] ] on 12/12/21 at 1059. Personal belongings sent with patient. Report given to [LUDMILA Elder @ [phone] ]. Appropriate documentation sent with patient.
--- NOTE | 2021-12-12 11:21 | PM.IMPN ---
Progress Note: A&P Assessment and Plan (1) Bilateral pleural effusion: Code(s): J90 - Pleural effusion, not elsewhere classified Status: Acute Assessment and Plan: Patient with significant dyspnea Continue oxygen as needed. Continue diuresis Prior confusion results reviewed. Likely related to malignancy. Waiting on final report. Possible sources are ovarian versus GI. Plan to transfer to [facility] for pleurodesis. (2) Dyspnea: Code(s): R06.00 - Dyspnea, unspecified Status: Acute Assessment and Plan: Continue oxygen. (3) Pulmonary emboli: Qualifiers: Pulmonary embolism type: multiple subsegmental (without acute cor pulmonale) Qualified Code(s): I26.94 - Multiple subsegmental pulmonary emboli without acute cor pulmonale Code(s): I26.99 - Other pulmonary embolism without acute cor pulmonale Status: Acute Assessment and Plan: Heparin drip (4) Grade I diastolic dysfunction: Code(s): I51.89 - Other ill-defined heart diseases Status: Acute Assessment and Plan: Appears compensated at this time. (5) Essential hypertension: Code(s): I10 - Essential (primary) hypertension Status: Chronic Assessment and Plan: Restart home meds Continue to monitor (6) Chronic GERD: Code(s): K21.9 - Gastro-esophageal reflux disease without esophagitis Status: Chronic Assessment and Plan: PPI as needed (7) Pacemaker: Code(s): Z95.0 - Presence of cardiac pacemaker Status: Acute Assessment and Plan: Continue to monitor Subjective Date/time seen: 12/12/21 11:21 Still mildly short of breath when on 2liters of oxygen. Exam Narrative: Patient is laying stricture in semi upright position Const: General: cooperative, well developed, alert, awake, acute distress mild, ill appearing, tired appearing, well groomed and other (Tachypneic) Nutritional Appearance: average body habitus Orientation/consciousness: patient oriented x3 HENMT: Head: normal to inspection, normocephalic and atraumatic Ears: hearing grossly normal bilaterally Face and sinus: normal facial exam Eyes: General: appearance normal, both eyes and all related structures Pupils: Equal, round and reactive pupils present EOM: EOMs intact bilaterally Neck: Neck: full ROM, no lymphadenopathy and no JVD Thyroid: thyroid normal Lymphatic: no lymphadenopathy noted Resp: Effort & Inspection: normal respiratory effort and able to speak in complete sentences Auscultation: clear to auscultation bilaterally and other (Bilateral absent breath sounds up 2/3) Cardio: Jugular venous distension: no JVD Rate: regular rate Rhythm: regular rhythm Heart sounds: S1 normal heart sound present and S2 normal heart sound present : General: Yes deferred Skin: Rashes: no rashes Wounds: no wounds Neuro: General: patient oriented x3 and CN's II-XI intact bilaterally Cranial nerves: Yes CN's II-XII intact bilaterally and Yes Equal, round and reactive pupils present Cognition (Neuro): normal cognition Speech: normal speech Gait exam (Neuro): Normal gait present Motor exam (neuro): 5/5 motor strength present throughout Extrem: General: normal to inspection, full ROM, no joint enlargement and no pedal edema Objective Data Vital Signs Vital Signs: Vital Signs - 24 hr 12/11/21 12:00 12/11/21 12:00 12/11/21 14:00 Temperature Pulse Rate 89 92 Respiratory Rate Blood Pressure Pulse Oximetry 97 Oxygen Delivery Room Air Oxygen Flow Rate 12/11/21 16:00 12/11/21 16:00 12/11/21 16:00 Temperature 97.4 F L Pulse Rate 92 96 Respiratory Rate 24 H Blood Pressure 141/61 H Pulse Oximetry 97 95 Oxygen Delivery Room Air Oxygen Flow Rate 12/11/21 12:00 12/11/21 18:00 12/11/21 20:00 Temperature 97.7 F 97.8 F Pulse Rate 88 84 90 Respiratory Rate 26 H 18 Blood Pressure 140/60 100/50 L Pulse Oximetry 97 97 Oxygen
--- NOTE | 2021-12-12 13:00 | WPDONCPN ---
Progress Note: A/P - Additional Plan Recurrent malignant pleural effusion. Patient is status post thoracentesis that showed adenocarcinoma. Patient is a lifetime on nonsmoker and has a history of colon cancer diagnosed [address] abdomen and pelvis done on December 19 showed normal liver and adrenal gland. The was conglomeraion of large and small bowel in the left mid abdomen with surrounding inflammatory changes and possible small bowel thickening along with omental thickening and nodularity. There was periaortic lymphadenopathy.. CEA came back normal. I will order CA 125 as well. We will plan to perform omental nodularity biopsy which can be done at [facility] after the transfer. Follow-up with me after her discharge from the hospital. - Time Spent With Patient Total time spent is greater than 50% in coordination of care (as documented) at patient's floor/unit and/or counseling patient: 15 - 25 minutes Subjective Interval history: Recurrent malignant pleural effusion History of colon cancer Review of Systems - Review of Systems Patient is now feeling better. She has less shortness of breath. She is able to eat better. Denies any abdominal pain. She has bowel movement 3 times a day and 1 was diarrheal like. No other new complaints. - Neurologic Reports system reviewed and no additional complaints, except as documented, Denies vertigo, Denies syncope Exam Vital signs: Temp Pulse Resp BP Pulse Ox O2 Del Method O2 Flow Rate 36.7 C 87 18 172/65 H 97 Nasal Cannula 2 12/12/21 07:39 12/12/21 08:00 12/12/21 07:39 12/12/21 07:39 12/12/21 08:00 12/12/21 08:00 12/12/21 08:00 Lungs are clear to auscultation bilaterally Cardiovascular regular rate rhythm no murmurs Abdomen soft nontender nondistended Extremities no edema PN: Objective Data - Labs CBC & Chem 7: 12/12/21 01:12 12/11/21 00:29 Labs: Laboratory Results - last 24 hr 12/11/21 12/11/21 12/12/21 09:33 18:37 01:12 WBC 10.6 H RBC 3.80 L Hgb 10.2 L Hct 32.2 L MCV 84.7 MCH 26.8 MCHC 31.7 L RDW 16.6 H Plt Count 507 H MPV 8.2 Immature Gran % (Auto) 0.5 Neut % (Auto) 80.2 H Lymph % (Auto) 7.4 L [place] % (Auto) 11.1 H Eos % (Auto) 0.6 Baso % (Auto) 0.2 Lymph # (Auto) 0.79 L [place] # (Auto) 1.2 H Eos # (Auto) 0.1 Baso # (Auto) 0.0 Abs Immat Gran (auto) 0.05 H Absolute Neuts (auto) 8.5 H Absolute Nucleated RBC 0.0 Nucleated RBC % 0.0 APTT 85.9 H Carcinoembryonic Ag 1.0 12/12/21 12/12/21 01:12 08:31 WBC RBC Hgb Hct MCV MCH MCHC RDW Plt Count MPV Immature Gran % (Auto) Neut % (Auto) Lymph % (Auto) [place] % (Auto) Eos % (Auto) Baso % (Auto) Lymph # (Auto) [place] # (Auto) Eos # (Auto) Baso # (Auto) Abs Immat Gran (auto) Absolute Neuts (auto) Absolute Nucleated RBC Nucleated RBC % APTT 157.2 H 96.4 H Carcinoembryonic Ag
[2021-12-12 16:03] LABS: Partial Thromboplastin Time 92.6 SECONDS (22.3-36.8)
[2021-12-12] MEDS: PRAVASTATIN SODIUM 20 MG TABLET 40 MG PO (17:18)
[2021-12-12] MEDS: PANTOPRAZOLE 40 MG TABLET PO (20:00)
[2021-12-13] VITALS (8 sets, daily range): BP systolic 123–126; BP diastolic 55–62; PULSE 77–89; RESP 18–20; TEMP 36.2–36.4; O2SAT 95–100
[2021-12-13] MEDS: HEPARIN SOD/D5W 100 UNITS/ML 25,000 UNITS/250 ML BAG 9 UNITS IV CONT ×2 (05:43→17:48)
[2021-12-13 05:45] LABS: Partial Thromboplastin Time 134.5 SECONDS (22.3-36.8)
[2021-12-13] MEDS: FERROUS SULFATE 324 MG TABLET PO (08:03)
[2021-12-13] MEDS: LOSARTAN POTASSIUM 50 MG TABLET 100 MG PO (08:03)
[2021-12-13] MEDS: FUROSEMIDE INJ 40 MG/4 ML VIAL IV PUSH ×2 (08:03→17:09)
[2021-12-13] MEDS: CYANOCOBALAMIN 1,000 MCG TABLET 1000 MCG PO (08:03)
[2021-12-13] MEDS: OMEGA 3 POLYUNSAT FATTY ACIDS 1 GM CAP 2 GM PO (08:03)
[2021-12-13] MEDS: PSYLLIUM POWDER PACKET 1 PACKET PO (08:03)
[2021-12-13] MEDS: HEPARIN SOD/D5W 100 UNITS/ML 25,000 UNITS/250 ML BAG 7 UNITS IV CONT (08:04)
--- NOTE | 2021-12-13 10:54 | PM.IMPN ---
Progress Note: A&P Assessment and Plan (1) Bilateral pleural effusion: Code(s): J90 - Pleural effusion, not elsewhere classified Status: Acute Assessment and Plan: Patient with significant dyspnea Continue oxygen as needed. Continue diuresis Prior confusion results reviewed. Likely related to malignancy. Waiting on final report. Possible sources are ovarian versus GI. Plan to transfer to [facility] for pleurodesis. (2) Dyspnea: Code(s): R06.00 - Dyspnea, unspecified Status: Acute Assessment and Plan: Continue oxygen. (3) Pulmonary emboli: Qualifiers: Pulmonary embolism type: multiple subsegmental (without acute cor pulmonale) Qualified Code(s): I26.94 - Multiple subsegmental pulmonary emboli without acute cor pulmonale Code(s): I26.99 - Other pulmonary embolism without acute cor pulmonale Status: Acute Assessment and Plan: Heparin drip (4) Grade I diastolic dysfunction: Code(s): I51.89 - Other ill-defined heart diseases Status: Acute Assessment and Plan: Appears compensated at this time. (5) Essential hypertension: Code(s): I10 - Essential (primary) hypertension Status: Chronic Assessment and Plan: Restart home meds Continue to monitor (6) Chronic GERD: Code(s): K21.9 - Gastro-esophageal reflux disease without esophagitis Status: Chronic Assessment and Plan: PPI as needed (7) Pacemaker: Code(s): Z95.0 - Presence of cardiac pacemaker Status: Acute Assessment and Plan: Continue to monitor Subjective Date/time seen: 12/13/21 10:54 Interval history: Patient resting comfortably without any complaints. No fevers or chills noted. No overnight events. She is eager to be transferred for pleurodesis. No chest pain or shortness of breath today. Review of Systems Review of Systems: Twelve point review of systems was reviewed and is negative except as noted in the HPI Exam Narrative: General: Patient resting comfortably in bed, no acute distress HEENT: Atraumatic, normocephalic, mucous membranes moist CV: Regular rate and rhythm, S1, S2, no murmurs rubs or gallops noted Lungs: Good air movement in the upper airways noted, diminished breath sounds at bases, some crackles noted Abdomen: Soft, nontender, nondistended Extremities: Normal to inspection, no edema noted Skin: No rashes noted, no lesions or wounds seen Psych: Euthymic, normal affect Neuro: Cranial nerves 2-12 grossly intact, strength 5/5 upper and lower extremities noted Objective Data Vital Signs Vital Signs: Vital Signs - 24 hr 12/12/21 12:00 12/12/21 11:00 12/12/21 16:00 Temperature Pulse Rate 86 89 92 Respiratory Rate 18 Blood Pressure 111/62 Pulse Oximetry 98 Oxygen Delivery Oxygen Flow Rate 12/12/21 16:00 12/12/21 20:00 12/12/21 21:04 Temperature 97.6 F 98.1 F Pulse Rate 85 91 86 Respiratory Rate 18 22 H Blood Pressure 128/60 129/51 L Pulse Oximetry 98 99 Oxygen Delivery Oxygen Flow Rate 12/13/21 00:00 12/13/21 04:00 12/13/21 08:56 Temperature Pulse Rate 77 84 Respiratory Rate Blood Pressure Pulse Oximetry 96 Oxygen Delivery Nasal Cannula Oxygen Flow Rate 2 12/13/21 08:00 12/13/21 08:00 12/13/21 08:00 Temperature 97.6 F Pulse Rate 80 89 Respiratory Rate 18 Blood Pressure 123/55 L Pulse Oximetry 95 98 Oxygen Delivery Nasal Cannula Oxygen Flow Rate 2 Intake/Output Intake/Output: Intake & Output 12/10/21 12/11/21 12/12/21 12/13/21 23:59 23:59 23:59 23:59 Intake Total 444.3 1485.7 980 Output Total 2250 1700 1000 Balance -1805.7 -214.3 -20 Meds/Results Medications: Active Medications Generic Name Dose Route Start Last Admin Trade Name Prachi PRN Reason Stop Dose Admin Cyanocobalamin 1,000 mcg 12/11/21 09:00 12/13/21 08:03 Cyanocobalamin 1,000 Mcg Tablet PO 1,000 mcg DA
[2021-12-13 12:39] LABS: Partial Thromboplastin Time 47.4 SECONDS (22.3-36.8)
[2021-12-13] MEDS: HEPARIN SODIUM 5,000 UNITS/ML VIAL 5000 UNITS IV PUSH (13:05)
[2021-12-13] MEDS: PRAVASTATIN SODIUM 20 MG TABLET 40 MG PO (17:09)
[2021-12-13 19:44] LABS: Partial Thromboplastin Time > 200.0 SECONDS (22.3-36.8)
[2021-12-13] MEDS: PANTOPRAZOLE 40 MG TABLET PO (20:07)
[2021-12-13 21:11] LABS: Partial Thromboplastin Time 171.5 SECONDS (22.3-36.8)
[2021-12-14] VITALS (8 sets, daily range): BP systolic 98–114; BP diastolic 45–60; PULSE 80–95; RESP 16; TEMP 36.4–36.8; O2SAT 96–98
[2021-12-14 09:47] LABS: Partial Thromboplastin Time 55.5 SECONDS (22.3-36.8)
[2021-12-14 09:55] LABS: Alanine Aminotransferase 24 U/L (6-35); Albumin Level 3.2 g/dL (3.5-5.1); Alkaline Phosphatase 108 U/L (38-126); Anion Gap 6 mmol/L (8-16); Aspartate Amino Transferase 26 U/L (14-36); Bilirubin,Total 0.7 mg/dL (0.2-1.3); Blood Urea Nitrogen 46 mg/dL (7-17); Calcium 8.4 mg/dL (8.4-10.2); Carbon Dioxide 30 mmol/L (22-30); Chloride 102 mmol/L (98-107); Estimated CRCL calculation 26 ml/min; Estimated Glomerular Filt Rate 39; Glucose 105 mg/dL (65-110); Potassium 3.3 mmol/L (3.4-5.0); Sodium 138 mmol/L (137-145)
[2021-12-14] MEDS: OMEGA 3 POLYUNSAT FATTY ACIDS 1 GM CAP 2 GM PO (10:11)
[2021-12-14] MEDS: LOSARTAN POTASSIUM 50 MG TABLET 100 MG PO (10:11)
[2021-12-14] MEDS: CYANOCOBALAMIN 1,000 MCG TABLET 1000 MCG PO (10:12)
[2021-12-14] MEDS: FUROSEMIDE INJ 40 MG/4 ML VIAL IV PUSH ×2 (10:12→16:58)
[2021-12-14] MEDS: FERROUS SULFATE 324 MG TABLET PO (10:12)
[2021-12-14] MEDS: PSYLLIUM POWDER PACKET 1 PACKET PO (10:13)
[2021-12-14] MEDS: HEPARIN SODIUM 5,000 UNITS/ML VIAL 2500 UNITS IV PUSH (10:21)
[2021-12-14 12:05] LABS: Hematocrit 33.6 % (37.0-47.0); Hemoglobin 10.8 g/dL (12.0-15.0); Mean Corpuscular HGB Conc 32.1 g/dl (32-36); Mean Corpuscular Hemoglobin 26.9 pg (26-34); Mean Corpuscular Volume 83.6 fl (80-100); Mean Platelet Volume 8.1 fl (7.4-10.4); Platelet Count Result 558 k/mm3 (150-375); Red Blood Count 4.02 M/mm3 (4.2-5.4); Red Cell Distribution Width 16.2 % (11.5-14.5); White Blood Count 11.3 K/mm3 (4.5-10.0)
--- NOTE | 2021-12-14 12:44 | WPDONCPN ---
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 I have discussed this case with the pathologist. Pathologist informed me that this does not look like lung or colon cancer but likely ovarian cancer. CA 125 was ordered and pending. Since there was a delay in transfer we will order omental mass biopsy by intervention radiologist. Plan for pleurodesis after transfer to [facility]. Pulmonary embolism. Patient will continue heparin drip. She can start Eliquis after the biopsy and pleurodesis. - Time Spent With Patient Total time spent is greater than 50% in coordination of care (as documented) at patient's floor/unit and/or counseling patient: 25 - 35 minutes Subjective Interval history: Recurrent malignant pleural effusion History of colon cancer Review of Systems - Review of Systems Patient seems to be more comfortable today. She is eating her lunch. Does have some shortness of breath but much better with oxygen. Denies any chest pain. No abdominal pain and distension. No other new complaints. - Neurologic Reports system reviewed and no additional complaints, except as documented, Denies vertigo, Denies syncope Exam Vital signs: Coby Klein. Assessment of coma and impaired consciousness. A practical scale. Lancet 1974; 2:81-4. Narrative: Lungs are clear to auscultation bilaterally Cardiovascular regular rate rhythm no murmurs Abdomen soft nontender nondistended bowel sounds are positive Extremities no edema PN: Objective Data - Labs CBC & Chem 7: 12/14/21 11:52 12/14/21 09:16 Labs: Laboratory Results - last 24 hr 12/12/21 12/13/21 12/13/21 15:38 19:03 20:02 WBC RBC Hgb Hct MCV MCH MCHC RDW Plt Count MPV APTT > 200.0 H* 171.5 H* Sodium Potassium Chloride Carbon Dioxide Anion Gap BUN Creatinine Estim Creat Clear Calc Estimated GFR Glucose Calcium Total Bilirubin AST ALT Alkaline Phosphatase Total Protein Albumin CA 125 Ag (off-site) Cancelled 12/14/21 12/14/21 12/14/21 03:18 09:16 09:18 WBC RBC Hgb Hct MCV MCH MCHC RDW Plt Count MPV APTT 95.0 H 55.5 H Sodium 138 Potassium 3.3 L Chloride 102 Carbon Dioxide 30 Anion Gap 6 L BUN 46 H D Creatinine 1.30 H Estim Creat Clear Calc 26 Estimated GFR 39 L Glucose 105 Calcium 8.4 Total Bilirubin 0.7 AST 26 ALT 24 Alkaline Phosphatase 108 Total Protein 6.0 L Albumin 3.2 L CA 125 Ag (off-site) 12/14/21 11:52 WBC 11.3 H RBC 4.02 L Hgb 10.8 L Hct 33.6 L MCV 83.6 MCH 26.9 MCHC 32.1 RDW 16.2 H Plt Count 558 H MPV 8.1 APTT Sodium Potassium Chloride Carbon Dioxide Anion Gap BUN Creatinine Estim Creat Clear Calc Estimated GFR Glucose Calcium Total Bilirubin AST ALT Alkaline Phosphatase Total Protein Albumin CA 125 Ag (off-site)
[2021-12-14 16:54] LABS: Partial Thromboplastin Time 35.1 SECONDS (22.3-36.8)
[2021-12-14] MEDS: PRAVASTATIN SODIUM 20 MG TABLET 40 MG PO (17:02)
[2021-12-14] MEDS: HEPARIN SODIUM 5,000 UNITS/ML VIAL 5000 UNITS IV PUSH (17:02)
--- NOTE | 2021-12-14 17:21 | PM.IMPN ---
Progress Note: A&P Assessment and Plan (1) Bilateral pleural effusion: Code(s): J90 - Pleural effusion, not elsewhere classified Status: Acute Assessment and Plan: Patient with significant dyspnea Continue oxygen as needed. Continue diuresis Prior confusion results reviewed. Likely related to malignancy. Waiting on final report. Possible sources are ovarian versus GI. Plan to transfer to [facility] for pleurodesis. (2) Dyspnea: Code(s): R06.00 - Dyspnea, unspecified Status: Acute Assessment and Plan: Continue oxygen. (3) Pulmonary emboli: Qualifiers: Pulmonary embolism type: multiple subsegmental (without acute cor pulmonale) Qualified Code(s): I26.94 - Multiple subsegmental pulmonary emboli without acute cor pulmonale Code(s): I26.99 - Other pulmonary embolism without acute cor pulmonale Status: Acute Assessment and Plan: Heparin drip (4) Grade I diastolic dysfunction: Code(s): I51.89 - Other ill-defined heart diseases Status: Acute Assessment and Plan: Appears compensated at this time. (5) Essential hypertension: Code(s): I10 - Essential (primary) hypertension Status: Chronic Assessment and Plan: Restart home meds Continue to monitor (6) Chronic GERD: Code(s): K21.9 - Gastro-esophageal reflux disease without esophagitis Status: Chronic Assessment and Plan: PPI as needed (7) Pacemaker: Code(s): Z95.0 - Presence of cardiac pacemaker Status: Acute Assessment and Plan: Continue to monitor Plan Omental biopsy today per oncology recommendations Subjective Date/time seen: 12/14/21 17:21 Interval history: Patient resting comfortably without complaints. No overnight events. She is scheduled for an omental biopsy arranged by Oncology later today. She will be transferred to [facility] for pleurodesis when a bed is available. No fevers or chills. No chest pain or shortness of breath. No nausea vomiting or diarrhea. Review of Systems Review of Systems: Twelve point review of systems was reviewed and is negative except as noted in the HPI Exam Narrative: General: Patient resting comfortably in bed, no acute distress HEENT: Atraumatic, normocephalic, mucous membranes moist CV: Regular rate and rhythm, S1, S2, no murmurs rubs or gallops noted Lungs: Good air movement in the upper airways noted, diminished breath sounds at bases, some crackles noted Abdomen: Soft, nontender, nondistended Extremities: Normal to inspection, no edema noted Skin: No rashes noted, no lesions or wounds seen Psych: Euthymic, normal affect Neuro: Cranial nerves 2-12 grossly intact, strength 5/5 upper and lower extremities noted Objective Data Vital Signs Vital Signs: Vital Signs - 24 hr 12/13/21 21:00 12/13/21 20:00 12/14/21 00:00 Temperature 97.5 F L Pulse Rate 89 82 Respiratory Rate 20 Blood Pressure 123/60 Pulse Oximetry 100 12/14/21 04:00 12/14/21 08:00 12/14/21 08:00 Temperature 97.6 F Pulse Rate 80 83 85 Respiratory Rate 16 Blood Pressure 114/45 L Pulse Oximetry 96 12/14/21 12:00 12/14/21 14:00 Temperature 98.3 F Pulse Rate 91 95 Respiratory Rate 16 Blood Pressure 107/50 L Pulse Oximetry 98 Intake/Output Intake/Output: Intake & Output 12/11/21 12/12/21 12/13/21 12/14/21 23:59 23:59 23:59 23:59 Intake Total 444.3 1485.7 1460 0 Output Total 2250 1700 1350 550 Balance -1805.7 -214.3 110 -550 Meds/Results Medications: Active Medications Generic Name Dose Route Start Last Admin Trade Name Freq PRN Reason Stop Dose Admin Cyanocobalamin 1,000 mcg 12/11/21 09:00 12/14/21 10:12 Cyanocobalamin 1,000 Mcg Tablet PO 1,000 mcg DAILY MIS Administration Cyanocobalamin 1,000 mcg 12/12/21 09:00 12/12/21 10:56 Cyanocobalamin Inj 1,000 Mcg/Ml Vial IM 1,000 mcg WEEKLY MIS Administration Ferr
[2021-12-14] MEDS: PANTOPRAZOLE 40 MG TABLET PO (19:58)
[2021-12-15] VITALS (8 sets, daily range): BP systolic 100–123; BP diastolic 54–75; PULSE 84–104; RESP 16–18; TEMP 36.3–36.9; O2SAT 93–100
[2021-12-15] MEDS: HEPARIN SOD/D5W 100 UNITS/ML 25,000 UNITS/250 ML BAG IV CONT (00:44)
[2021-12-15 01:32] LABS: Partial Thromboplastin Time 197.9 SECONDS (22.3-36.8)
[2021-12-15 07:50] LABS: Hemoglobin 10.1 g/dL (12.0-15.0); Mean Corpuscular HGB Conc 32.6 g/dl (32-36); Mean Corpuscular Hemoglobin 26.8 pg (26-34); Mean Corpuscular Volume 82.2 fl (80-100); Mean Platelet Volume 8.3 fl (7.4-10.4); Platelet Count Result 530 k/mm3 (150-375); Red Blood Count 3.77 M/mm3 (4.2-5.4); Red Cell Distribution Width 16.2 % (11.5-14.5); White Blood Count 10.1 K/mm3 (4.5-10.0)
[2021-12-15 07:54] LABS: Partial Thromboplastin Time 61.8 SECONDS (22.3-36.8)
[2021-12-15 07:56] LABS: Anion Gap 2 mmol/L (8-16); Blood Urea Nitrogen 42 mg/dL (7-17); Calcium 7.9 mg/dL (8.4-10.2); Carbon Dioxide 35 mmol/L (22-30); Chloride 101 mmol/L (98-107); Estimated CRCL calculation 26 ml/min; Estimated Glomerular Filt Rate 39; Glucose 103 mg/dL (65-110); Potassium 3.1 mmol/L (3.4-5.0); Sodium 138 mmol/L (137-145)
[2021-12-15] MEDS: HEPARIN SODIUM 5,000 UNITS/ML VIAL 2500 UNITS IV PUSH (08:30)
[2021-12-15] MEDS: FERROUS SULFATE 324 MG TABLET PO (08:35)
[2021-12-15] MEDS: LOSARTAN POTASSIUM 50 MG TABLET 100 MG PO (08:35)
[2021-12-15] MEDS: FUROSEMIDE INJ 40 MG/4 ML VIAL IV PUSH ×2 (08:35→17:45)
[2021-12-15] MEDS: CYANOCOBALAMIN 1,000 MCG TABLET 1000 MCG PO (08:35)
[2021-12-15] MEDS: OMEGA 3 POLYUNSAT FATTY ACIDS 1 GM CAP 2 GM PO (08:35)
[2021-12-15] MEDS: PSYLLIUM POWDER PACKET 1 PACKET PO (08:36)
[2021-12-15] MEDS: POTASSIUM CHLORIDE 20 MEQ TABLET 40 MEQ PO (08:47)
--- NOTE | 2021-12-15 13:39 | PCPTNOTE ---
Attempted to see patient for PT this afternoon, however patient declined due to patient just getting back in bed and wanting to rest.
--- NOTE | 2021-12-15 17:07 | PM.IMPN ---
Progress Note: A&P Assessment and Plan (1) Bilateral pleural effusion: Code(s): J90 - Pleural effusion, not elsewhere classified Status: Acute Assessment and Plan: Likely related to malignancy. Waiting on final report. Possible sources are ovarian versus GI. Plan to transfer to [facility] for pleurodesis. (2) Dyspnea: Code(s): R06.00 - Dyspnea, unspecified Status: Acute Assessment and Plan: Continue oxygen. (3) Pulmonary emboli: Qualifiers: Pulmonary embolism type: multiple subsegmental (without acute cor pulmonale) Qualified Code(s): I26.94 - Multiple subsegmental pulmonary emboli without acute cor pulmonale Code(s): I26.99 - Other pulmonary embolism without acute cor pulmonale Status: Acute Assessment and Plan: Heparin drip (4) Grade I diastolic dysfunction: Code(s): I51.89 - Other ill-defined heart diseases Status: Acute Assessment and Plan: Appears compensated at this time. (5) Essential hypertension: Code(s): I10 - Essential (primary) hypertension Status: Chronic Assessment and Plan: Restart home meds Continue to monitor (6) Chronic GERD: Code(s): K21.9 - Gastro-esophageal reflux disease without esophagitis Status: Chronic Assessment and Plan: PPI as needed (7) Pacemaker: Code(s): Z95.0 - Presence of cardiac pacemaker Status: Acute Assessment and Plan: Continue to monitor Plan Omental biopsy pending Subjective Date/time seen: 12/15/21 17:07 Interval history: Patient resting comfortably. visiting with patient. No overnight events noted. No chest pain or shortness of breath. No nausea, vomiting or diarrhea. No fevers or chills. All questions answered. Still waiting for bed at [facility]. Review of Systems Review of Systems: 12 point review of systems was assessed and was negative except as noted in the HPI Exam Narrative: General: Patient resting comfortably in bed, no acute distress HEENT: Atraumatic, normocephalic, mucous membranes moist CV: Regular rate and rhythm, S1, S2, no murmurs rubs or gallops noted Lungs: Good air movement in the upper airways noted, diminished breath sounds at bases, some crackles noted Abdomen: Soft, nontender, nondistended Extremities: Normal to inspection, no edema noted Skin: No rashes noted, no lesions or wounds seen Psych: Euthymic, normal affect Neuro: Cranial nerves 2-12 grossly intact, strength 5/5 upper and lower extremities noted Objective Data Vital Signs Vital Signs: Vital Signs - 24 hr 12/14/21 19:39 12/14/21 20:00 12/15/21 00:00 Temperature 97.6 F Pulse Rate 91 88 86 Respiratory Rate 16 Blood Pressure 98/60 L Pulse Oximetry 98 Oxygen Delivery Oxygen Flow Rate 12/15/21 04:00 12/15/21 04:39 12/15/21 08:28 Temperature 97.4 F L Pulse Rate 84 89 Respiratory Rate 18 Blood Pressure 123/75 Pulse Oximetry 93 94 Oxygen Delivery Nasal Cannula Oxygen Flow Rate 2.5 12/15/21 08:28 12/15/21 14:15 Temperature 97.9 F Pulse Rate 95 84 Respiratory Rate 16 Blood Pressure 100/55 L Pulse Oximetry 100 Oxygen Delivery Oxygen Flow Rate Intake/Output Intake/Output: Intake & Output 12/12/21 12/13/21 12/14/21 12/15/21 23:59 23:59 23:59 23:59 Intake Total 1485.7 2703 346 3231 Output Total 1700 4160 140 7918 Balance -214.3 110 -710 70 Meds/Results Medications: Active Medications Generic Name Dose Route Start Last Admin Trade Name Prachi PRN Reason Stop Dose Admin Cyanocobalamin 1,000 mcg 12/11/21 09:00 12/15/21 08:35 Cyanocobalamin 1,000 Mcg Tablet PO 1,000 mcg DAILY MIS Administration Cyanocobalamin 1,000 mcg 12/12/21 09:00 12/12/21 10:56 Cyanocobalamin Inj 1,000 Mcg/Ml Vial IM 1,000 mcg WEEKLY MIS Administration Ferrous Sulfate 324 mg 12/11/21 08:00 12/15/21 08:35 Ferrous Sulfate 324 Mg Tablet PO 324 mg
[2021-12-15] MEDS: PRAVASTATIN SODIUM 20 MG TABLET 40 MG PO (17:45)
[2021-12-15] MEDS: PANTOPRAZOLE 40 MG TABLET PO (20:44)
[2021-12-15 21:27] LABS: Partial Thromboplastin Time 76.6 SECONDS (22.3-36.8)
[2021-12-15] MEDS: ZOLPIDEM TARTRATE (*CRX) 5 MG TABLET PO (22:53)
[2021-12-16] VITALS (9 sets, daily range): BP systolic 100–119; BP diastolic 51–59; PULSE 74–91; RESP 16–18; TEMP 36.4–36.7; O2SAT 96–100
[2021-12-16] MEDS: ACETAMINOPHEN 500 MG TABLET 1000 MG PO ×2 (02:20→09:09)
[2021-12-16 03:26] LABS: Hematocrit 27.9 % (37.0-47.0); Hemoglobin 8.8 g/dL (12.0-15.0); Mean Corpuscular HGB Conc 31.5 g/dl (32-36); Mean Corpuscular Hemoglobin 26.3 pg (26-34); Mean Corpuscular Volume 83.3 fl (80-100); Mean Platelet Volume 8.3 fl (7.4-10.4); Platelet Count Result 452 k/mm3 (150-375); Red Blood Count 3.35 M/mm3 (4.2-5.4); Red Cell Distribution Width 15.9 % (11.5-14.5); White Blood Count 11.9 K/mm3 (4.5-10.0)
[2021-12-16 03:33] LABS: Anion Gap 4 mmol/L (8-16); Blood Urea Nitrogen 37 mg/dL (7-17); Calcium 7.6 mg/dL (8.4-10.2); Carbon Dioxide 30 mmol/L (22-30); Chloride 101 mmol/L (98-107); Estimated CRCL calculation 28 ml/min; Estimated Glomerular Filt Rate 43; Glucose 116 mg/dL (65-110); Sodium 135 mmol/L (137-145)
[2021-12-16 03:37] LABS: Partial Thromboplastin Time 81.6 SECONDS (22.3-36.8)
[2021-12-16] MEDS: HEPARIN SOD/D5W 100 UNITS/ML 25,000 UNITS/250 ML BAG 8 UNITS IV CONT (05:47)
[2021-12-16] MEDS: LOSARTAN POTASSIUM 50 MG TABLET 100 MG PO (09:08)
[2021-12-16] MEDS: CYANOCOBALAMIN 1,000 MCG TABLET 1000 MCG PO (09:08)
[2021-12-16] MEDS: OMEGA 3 POLYUNSAT FATTY ACIDS 1 GM CAP 2 GM PO (09:08)
[2021-12-16] MEDS: FERROUS SULFATE 324 MG TABLET PO (09:08)
[2021-12-16] MEDS: FUROSEMIDE INJ 40 MG/4 ML VIAL IV PUSH ×2 (09:08→17:18)
[2021-12-16] MEDS: PSYLLIUM POWDER PACKET 1 PACKET PO (09:09)
--- NOTE | 2021-12-16 15:17 | PM.IMPN ---
Progress Note: A&P Assessment and Plan (1) Bilateral pleural effusion: Code(s): J90 - Pleural effusion, not elsewhere classified Status: Acute Assessment and Plan: Suspect malignant etiology, appreciate oncology consultation, omental biopsy pending, suspected sources ovarian versus GI, CA 125 also pending (2) Dyspnea: Code(s): R06.00 - Dyspnea, unspecified Status: Acute Assessment and Plan: Improved (3) Pulmonary emboli: Qualifiers: Pulmonary embolism type: multiple subsegmental (without acute cor pulmonale) Qualified Code(s): I26.94 - Multiple subsegmental pulmonary emboli without acute cor pulmonale Code(s): I26.99 - Other pulmonary embolism without acute cor pulmonale Status: Acute Assessment and Plan: Continue heparin drip (4) Grade I diastolic dysfunction: Code(s): I51.89 - Other ill-defined heart diseases Status: Acute Assessment and Plan: Unchanged (5) Essential hypertension: Code(s): I10 - Essential (primary) hypertension Status: Chronic Assessment and Plan: Stable (6) Chronic GERD: Code(s): K21.9 - Gastro-esophageal reflux disease without esophagitis Status: Chronic Assessment and Plan: Continue PPI (7) Pacemaker: Code(s): Z95.0 - Presence of cardiac pacemaker Status: Acute Plan Awaiting for a bed at [facility] so the patient can have pleurodesis, CA 125 and omental biopsy pending Subjective Date/time seen: 12/16/21 15:17 Interval history: No overnight events noted. No chest pain or shortness of breath. No nausea, vomiting or diarrhea. No fevers or chills. Review of Systems Review of Systems: 12 point review of systems was assessed and was negative except as noted in the HPI Exam Narrative: General: No acute distress, alert and oriented per baseline HEENT: Atraumatic, normocephalic, mucous membranes moist CV: Regular rate and rhythm, S1, S2, no murmurs rubs or gallops noted Lungs: Clear to auscultation bilaterally, no rales or crackles noted, no wheezes, good air entry Abdomen: Soft, nontender, nondistended Extremities: Normal to inspection Skin: No rashes noted, no lesions or wounds seen Psych: Euthymic, normal affect Objective Data Vital Signs Vital Signs: Vital Signs - 24 hr 12/15/21 20:00 12/15/21 20:38 12/15/21 20:00 Temperature Pulse Rate 104 H 104 H Respiratory Rate 16 Blood Pressure Pulse Oximetry 95 95 Oxygen Delivery Nasal Cannula Nasal Cannula Oxygen Flow Rate 2.5 2 12/15/21 21:59 12/16/21 00:00 12/16/21 04:00 Temperature 98.4 F Pulse Rate 88 91 80 Respiratory Rate 18 Blood Pressure 101/54 L Pulse Oximetry 100 Oxygen Delivery Oxygen Flow Rate 12/16/21 05:52 12/16/21 08:00 12/16/21 13:08 Temperature 98.1 F Pulse Rate 74 74 Respiratory Rate 18 18 Blood Pressure 119/51 L Pulse Oximetry 96 96 Oxygen Delivery Nasal Cannula Nasal Cannula Oxygen Flow Rate 2 2 12/16/21 14:00 Temperature 97.5 F L Pulse Rate 81 Respiratory Rate 16 Blood Pressure 100/55 L Pulse Oximetry 100 Oxygen Delivery Oxygen Flow Rate Intake/Output Intake/Output: Intake & Output 12/13/21 12/14/21 12/15/21 12/16/21 23:59 23:59 23:59 23:59 Intake Total 9391 400 1685 1120 Output Total 4006 943 4405 600 Balance 110 -710 150 520 Meds/Results Medications: Active Medications Generic Name Dose Route Start Last Admin Trade Name Prachi PRN Reason Stop Dose Admin Acetaminophen 1,000 mg 12/16/21 08:16 12/16/21 09:09 Acetaminophen 500 Mg Tablet PO 1,000 mg Q8HR PRN Administration Mild Pain (1-3) or Fever Cyanocobalamin 1,000 mcg 12/11/21 09:00 12/16/21 09:08 Cyanocobalamin 1,000 Mcg Tablet PO 1,000 mcg DAILY MIS Administration Cyanocobalamin 1,000 mcg 12/12/21 09:00 12/12/21 10:56 Cyanocobalamin Inj 1,000 Mcg/Ml Vial IM 1,000 mcg WEEKLY [facility] Administratio
[2021-12-16] MEDS: PRAVASTATIN SODIUM 20 MG TABLET 40 MG PO (17:17)
--- NOTE | 2021-12-16 18:36 | PC.NURSE ---
spoke with Jaymie at [facility] transfer line, she called for an update on this pt's condition and VS, reviewed today's data and provided her with MD's contact info per her request because she states there may be a bed coming available this evening pending a scheduled discharge on their end
[2021-12-16] MEDS: PANTOPRAZOLE 40 MG TABLET PO (20:40)
--- NOTE | 2021-12-16 21:47 | PC.NURSE ---
Received bed at [facility] family and pt aware and consent signed, Gonsalez called and will be available to 2300. Report called to Treva gamble [facility].
[2021-12-17] VITALS: PULSE 80
--- NOTE | 2021-12-17 02:11 | PC.NURSE ---
Pt discharge per [facility] with Heparin drip continue, chavez, Oxygen and heart monitor. Report was called to Treva and update when pt left also called to Treva.
[2021-12-17 12:10] LABS: CA-125 3109 U/mL (<35)
--- NOTE | 2021-12-19 07:36 | PM.TDS ---
Transfer Discharge Sum: Prov Provider Date of admission: 12/11/21 02:37 Primary care physician: Apollo Norwood, MD Admitting clinician: Yaima Lunsford MD Consults: 12/11/21 Consult to Physician Routine Comment: spoke with Dr. Mosher @[phone](,) Consulting Provider: Shiv Mosher call center manager/MD group to consult: oncology - dr mosher Reason for consultation: lung ca Has provider been notified: Yes Consult to Physician Routine Comment: spoke with Dr. Maddox@[phone](,[place]) Consulting Provider: Satish Maddox call center manager/MD group to consult: virtualization consultant pulmonary Reason for consultation: bl pleural effusions Has provider been notified: Yes DS: Admitting Diagnosis Discharge Date 12/16/21 Admitting Diagnosis Bilateral pleural effusion DS: Discharge Diagnosis Discharge Diagnosis (1) Bilateral pleural effusion: Code(s): J90 - Pleural effusion, not elsewhere classified Status: Acute Assessment and Plan: Suspect malignant etiology, appreciate oncology consultation, omental biopsy pending, suspected sources ovarian versus GI, CA 125 also pending (2) Dyspnea: Code(s): R06.00 - Dyspnea, unspecified Status: Acute Assessment and Plan: Improved (3) Pulmonary emboli: Qualifiers: Pulmonary embolism type: multiple subsegmental (without acute cor pulmonale) Qualified Code(s): I26.94 - Multiple subsegmental pulmonary emboli without acute cor pulmonale Code(s): I26.99 - Other pulmonary embolism without acute cor pulmonale Status: Acute Assessment and Plan: Continue heparin drip (4) Grade I diastolic dysfunction: Code(s): I51.89 - Other ill-defined heart diseases Status: Acute Assessment and Plan: Unchanged (5) Essential hypertension: Code(s): I10 - Essential (primary) hypertension Status: Chronic Assessment and Plan: Stable (6) Chronic GERD: Code(s): K21.9 - Gastro-esophageal reflux disease without esophagitis Status: Chronic Assessment and Plan: Continue PPI (7) Pacemaker: Code(s): Z95.0 - Presence of cardiac pacemaker Status: Acute Plan Awaiting for a bed at [facility] so the patient can have pleurodesis, CA 125 and omental biopsy pending Transfer Discharge Sum: Med Medications Active and Home Medications: Home Medications potassium chloride 10 mEq capsule,extended release 10 meq PO QMWF 08/25/19 [History Confirmed 12/11/21] pravastatin 40 mg tablet 40 mg PO QPM 08/25/19 [History Confirmed 12/11/21] losartan 50 mg tablet 100 mg PO DAILY 08/08/20 [History Confirmed 12/11/21] omega 2-fmy-udc-fish oil 300 mg-1,000 mg capsule (Fish Oil) 2 cap PO DAILY 07/21/21 [History Confirmed 12/11/21] ferrous sulfate 325 mg (65 mg iron) tablet 324 mg PO DAILY 09/25/21 [History Confirmed 12/11/21] psyllium husk 3.4 gram/5.4 gram oral powder (Metamucil) 2 tsp PO DAILY PRN Constipation 09/25/21 [History Confirmed 12/11/21] apixaban 5 mg tablet (Eliquis) 5 mg PO BID 10/24/21 [History Confirmed 12/11/21] pantoprazole 40 mg tablet,delayed release 40 mg PO HS 12/03/21 [History Confirmed 12/11/21] cyanocobalamin (vitamin B-12) 1,000 mcg capsule 1,000 mcg PO DAILY #30 caps 12/05/21 [Rx Confirmed 12/11/21] cyanocobalamin (vitamin B-12) 1,000 mcg/mL injection solution 1,000 mcg subcut WEEKLY 12/12/21 [History Confirmed 12/12/21] Transfer Discharge Sum: Hosp Hospital Course Hospital course: Ml Wells is a 81 year old female with past medical history significant for diastolic heart failure with implantation of a pacemaker, history of embolism on anticoagulation he was recently discharged with a large left-sided pleural effusion status post thoracentesis thought to be secondary to pneumonia that was treated with Levaquin. However, patient returned to the ER with worsening shortness of breath as well as a cough but no peripheral edema noted. In the ER, chest x-ray showed bilateral large
== END 2021-12-17 02:00 | disposition short-term general hospital (02) | DRG 843 ==
LOC: ANHED 01:17 → ANH3MEDSUR 01:28 → ANHIMU 02:14 → ANH3MED 12-12 11:03
PROVIDERS: Chiropractor; Internal Medicine; Internal Medicine Hematology & Oncology; Nurse Practitioner Adult Health; Admitting Provider Internal Medicine; Emergency Provider Emergency Medicine; PCP Internal Medicine; Visit Provider Student in an Organized Health Care Education/Training Program
DX: C80.1 Malignant (primary) neoplasm, unspecified (principal); I50.33 Acute on chronic diastolic (congestive) heart failure; R06.00 Dyspnea, unspecified; K21.9 Gastro-esophageal reflux disease without esophagitis; Z95.0 Presence of cardiac pacemaker; E78.5 Hyperlipidemia, unspecified; Z79.899 Other long term (current) drug therapy; Z86.711 Personal history of pulmonary embolism; I11.0 Hypertensive heart disease with heart failure; Z79.01 Long term (current) use of anticoagulants; R59.0 Localized enlarged lymph nodes; J91.0 Malignant pleural effusion
CPT/HCPCS: 36415; 49180; 71045; 74176; 77012; 80048; 80053; 82378; 83615; 83880; 84155; 84484; 85025; 85027; 85610; 85730; 86304; 87040; 87070; 87205; 88305; 93005; 93306; 97110; 97116; 97161; 97530; 99285; A9270; J1644; J1940; J3420

== ENCOUNTER 2022-01-17 10:07 | Outpatient (CLI) | payer MEDICARE, SELFPAY ==
--- NOTE | ~2022-01-17 | XR_ITS ---
XR chest 2V DATE: 01/17/2022 10:30 INDICATION: Malignant pleural effusion TECHNIQUE: PA and lateral views COMPARISON: 12/11/2021 portable AP chest 07/21/2021 CT pulmonary scan FINDINGS: Mild bilateral pleural effusions and bilateral lower lung infiltrate and/atelectasis. The p leural effusions and basilar infiltrates or atelectasis are improved since 12/11/2021. Borderline heart size. Left dual-lead pacemaker device with leads overlying right atrium and right ve ntricle. Aortic arch calcification. No hilar or mediastinal enlargement is noted. Right Port-A-Cath catheter tip overlies the right atrium. Right thoracostomy tube, distal tip overlying medial right apex. Left chest tube, tip overlying left apex. Diffuse osteopenia. Prominent osteoarthritic change at the glenohumeral joints. 7 mm calcification overlying the right upper quadrant, of uncertain significance; there is no evidenc e of cholelithiasis on 07/21/2021 CT pulmonary scan. IMPRESSION: Mild bilateral lower lung infiltrates and/atelectasis and small pleural effusions, all im proved since 12/11/2021 Bilateral thoracostomy tubes Right Port-A-Cath Reviewed, dictated and finalized at location [facility]. IMPRESSION: Mild bilateral lower lung infiltrates and/atelectasis and small ple ural effusions, all improved since 12/11/2021 Bilateral thoracostomy tubes Right Port-A-Cath
== END 2022-01-17 10:08 | disposition home or self-care (01) ==
PROVIDERS: PCP Internal Medicine
DX: J91.0 Malignant pleural effusion (principal); R91.8 Other nonspecific abnormal finding of lung field
CPT/HCPCS: 71046

== ENCOUNTER 2022-03-15 09:27 | Outpatient (CLI) | payer MEDICARE, SELFPAY ==
--- NOTE | ~2022-03-15 | CT_ITS ---
EXAMINATION: CT chest abdomen pelvis w con DATE: 03/15/2022 09:48 INDICATION: Malignant neoplasm of ovary TECHNIQUE: Computed tomography (CT) of the chest, abdomen, and pelvis was performed with 100 CC Omnip aque 350 intravenous contrast. Automated exposure control and iterative reconstruction technique were employed. Exam dose: 372.39 mGy-cm total exam DLP. COMPARISON: 01/17/[address] abdomen pelvis 12/03/2021 CT chest FINDINGS: CHEST CT: Prominent discoid atelectasis and/or scarring in the mid and lower lung zones bilaterally. There is o ld pulmonary granulomatous disease. No pulmonary infiltrate or consolidation. Cardiomegaly. Coronary artery calcifications. Left-sided transvenous pacemaker device with leads in t he right atrium and right ventricular apex. Right Port-A-Cath catheter. Thoracic aortic calcification. No thoracic aortic aneurysm or dissection. No pericardial effusion. No hilar or mediastinal mass lesion or lymphadenopathy. Small sliding hiatal hernia. ABDOMEN/PELVIS CT: Diffuse hepatic steatosis. There is an approximately 6 x 11 mm area of prominent enhancement at the p osterior margin of the right hepatic lobe superiorly which may be a flash filling hepatic venous malf ormation (a form of benign hemangioma); the differential diagnosis includes metastasis, less likely h epatocellular cancer. No other hepatic space-occupying mass lesion. The gallbladder is present. No gallbladder wall thickening or pericholecystic fluid or fat stranding. No bile duct or pancreatic duct dilatation. No pancreatic mass lesion or calcification. Normal splenic size. Numerous splenic calcified granulomas. Normal morphology of the adrenal glands. Approximately 7 mm left renal cortical cyst and some parapelvic cysts. 5 mm right renal cortical cyst . No urinary tract calculus or hydroureteronephrosis. Line normal caliber and atherosclerotic calcifi cation of the abdominal aorta, iliac and femoral arteries .Minimal colonic diverticulosis; no CT evidence of diverticulitis. No bowel obstruction or intraperit rubio free air. Stable approximately 16.7 x 20 mm cystic area is noted in the right adnexal area, not significantly c hanged since 12/11/2021. The uterus and adnexal areas are otherwise unremarkable. The urinary bladder is relatively evacuated. There is diminished soft tissue prominence in the omental area suggesting improvement of omental meta static disease since 12/11/2021. No intraperitoneal or retroperitoneal or pelvic mass lesion or adenopathy. Severe degenerative disc disease at L4-5 and L5-S1. Prominent bilateral hip osteoarthritis, more severe on the right. No suspicious osteolytic or osteoblastic lesions. IMPRESSION: Diminished soft tissue density in the omentum suggesting improvement of omental metastat ic disease Stable approximately 17 x 20 mm cystic area in the right adnexal area since 12/11/2021 Prominently enhancing 6 x 11 mm lesion at posterior right hepatic lobe; differential diagnosis includ es flash filling hepatic venous malformation versus metastasis or less likely hepatocellular carcinom a Bilateral renal cysts Minimal colonic diverticulosis Reviewed, dictated and finalized at [facility]. Reviewed, dictated and finalized at [facility]. IMPRESSION: Diminished soft tissue density in the omentum suggesting improveme nt of omental metastatic disease Stable approximately 17 x 20 mm cystic area in the right adnexal area since 11/23 Prominently enhancing 6 x 11 mm lesion at posterior right hepatic lobe; differe ntial diagnosis includes flash filling hepatic venous malformation versus metas tasis or less likely hepatocellular carcinoma Bilateral renal cysts
== END 2022-03-15 09:28 | disposition home or self-care (01) ==
LOC: ANHIMG 09:30
PROVIDERS: PCP Internal Medicine; Visit Provider Internal Medicine Hematology & Oncology
DX: C56.9 Malignant neoplasm of unspecified ovary (principal); N28.1 Cyst of kidney, acquired
CPT/HCPCS: 71260; 74177; Q9967

== ENCOUNTER 2022-04-18 08:02 | Outpatient (CLI) | payer MEDICARE, SELFPAY ==
[2022-04-19 11:21] LABS: Kit Draw Collected
== END 2022-04-18 08:03 | disposition home or self-care (01) ==
LOC: ANHGOSHLAB 08:07
PROVIDERS: PCP Family Medicine; Visit Provider Internal Medicine Cardiovascular Disease
DX: E78.5 Hyperlipidemia, unspecified (principal); Z53.8 Procedure and treatment not carried out for other reasons
CPT/HCPCS: 99199; 36415

== ENCOUNTER 2022-08-09 08:25 | Outpatient (CLI) | payer MEDICARE, SELFPAY ==
--- NOTE | ~2022-08-09 | CT_ITS ---
EXAMINATION: CT abdomen pelvis w con INDICATION: Malignant neoplasm of the ovary TECHNIQUE: Computed tomographic images of the abdomen and pelvis were obtained after the administrati on of 100 cc of Omnipaque 350 intravenous contrast. The dose-length product (DLP) was 282.68 mGy-cm. Automated exposure control and iterative reconstruction technique were employed. COMPARISON: 03/15/2022, 02/04/2020 FINDINGS: Minimal dependent atelectasis is present in the lung bases. The heart size is normal. There is calcified coronary artery atherosclerosis. Again seen is a chronic stable 10 mm enhancing lesion in liver segment VII, consistent with a flash filling hemangioma versus focal nodular hyperplasia. Pu nctate calcifications in an otherwise normal spleen likely represent healed granulomatous disease. Th e pancreas, gallbladder, and adrenal glands are normal. Cysts of the kidneys measure up to 1.3 cm on the right. There are peripelvic cysts of the left kidney. No pathologically enlarged abdominal or pel raji lymph nodes are identified. No free intraperitoneal gas or evidence of bowel obstruction. Previou sly described omental thickening continues to resolve. There is calcified atherosclerosis of the aort a and many of the other arteries. There is severe lumbar spondylosis. IMPRESSION: 1. Stable exam without abdominal and pelvic lymphadenopathy or significant peritoneal and omental met astases. Reviewed, dictated and finalized at location A. TEACHER IMPRESSION: 1. Stable exam without abdominal and pelvic lymphadenopathy or significant tirso toneal and omental metastases.
== END 2022-08-09 08:26 | disposition home or self-care (01) ==
PROVIDERS: PCP Family Medicine; Visit Provider Internal Medicine Hematology & Oncology
DX: C56.9 Malignant neoplasm of unspecified ovary (principal)
CPT/HCPCS: 36415; 74177; 80053; 85025; 86304; Q9967

== ENCOUNTER 2022-11-09 06:34 | Outpatient (CLI) | payer MEDICARE, SELFPAY ==
--- NOTE | ~2022-11-09 | CT_ITS ---
Clinical Indication: Ovarian cancer CT Scan of the Chest, Abdomen, and Pelvis with Contrast: Technique: Contiguous sections were acquired throughout the chest, abdomen, and pelvis after intraven ous administration of 100 cc of Omnipaque 350. Dose reduction technique was used on this scan by romi duncan automated exposure control and iterative reconstruction technique. The dose-length product (DL P) was 368.33 mGy-cm. COMPARISON: 08/09/2022 Findings: There is no evidence of any significant mediastinal, hilar or axillary lymphadenopathy. Coronary john ry calcifications are present. No aortic aneurysm or dissection. No large central pulmonary embolus. There is no evidence of pleural or pericardial effusion. There is chronic scarring or atelectasis in the right middle lobe and lingula. No suspicious pulmonar y nodule seen. The liver, spleen, pancreas, gallbladder, adrenals and kidneys are within normal limits. There are at herosclerotic calcifications of the aorta. There are shotty aortocaval lymph nodes, largest measurin g 1.1 x 0.9 x 2.1 cm (axial image 144, coronal image 50), mildly increased in size from prior exam.. No bowel obstruction or bowel wall thickening. There is no evidence to suggest acute appendicitis. Urinary bladder is unremarkable. No pelvic mass evident. Patient is post hysterectomy. Impression: Single borderline enlarged aortocaval lymph node, with additional shotty lymph nodes. The dominant ly mph node is mildly increased in size from prior exam. These are nonspecific. Findings could reflect e evan karel metastatic disease, versus reactive/inflammatory lymph nodes. Correlate clinically. Contin ued short-term follow-up recommended to reassess. Chronic scarring or atelectasis in the right middle lobe and lingula. Reviewed, dictated and finalized at location . Impression: Single borderline enlarged aortocaval lymph node, with additional shotty lymph nodes. The dominant lymph node is mildly increased in size from prior exam. The se are nonspecific. Findings could reflect early karel metastatic disease, vers us reactive/inflammatory lymph nodes. Correlate clinically. Continued short-ter m follow-up recommended to reassess. Chronic scarring or atelectasis in the right middle lobe and lingula.
== END 2022-11-09 06:35 | disposition home or self-care (01) ==
PROVIDERS: PCP Family Medicine; Visit Provider Internal Medicine Hematology & Oncology
DX: C56.9 Malignant neoplasm of unspecified ovary (principal)
CPT/HCPCS: 71260; 74177; Q9967

== ENCOUNTER 2022-11-12 08:15 | Outpatient (CLI) | payer MEDICARE, SELFPAY ==
[2022-11-12 18:39] LABS: Cholesterol 202 mg/dL (0-200); HDL Direct 43 mg/dL; Magnesium 2.2 mg/dL (1.6-2.3); Triglycerides 205 mg/dL (<150)
[2022-11-12 19:19] LABS: LDL Cholesterol Direct 99 mg/dL
== END 2022-11-12 08:16 | disposition home or self-care (01) ==
LOC: ANHGOSHLAB 08:16
PROVIDERS: PCP Family Medicine; Visit Provider Internal Medicine Cardiovascular Disease
DX: E78.5 Hyperlipidemia, unspecified (principal)
CPT/HCPCS: 36415; 80061; 83735

== ENCOUNTER 2023-02-11 07:34 | Outpatient (CLI) | payer MEDICARE, SELFPAY ==
--- NOTE | ~2023-02-11 | CT_ITS ---
EXAMINATION: CT chest abdomen pelvis w con DATE: 02/11/2023 07:58 INDICATION: Malignant neoplasm of ovary. TECHNIQUE: Computed tomography (CT) of the chest, abdomen, and pelvis was performed with 100 mL Omnip aque 350 intravenous contrast. Automated exposure control and iterative reconstruction technique were employed. The dose-length product was 444.26 mGy-cm. COMPARISON: CT 11/09/2022, 03/15/2022 FINDINGS: CHEST CT: There is a stable 3 mm nodule in right upper lobe, likely benign. There is mild atelectasis bilateral ly. A calcified left lung nodule and calcified left hilar lymph nodes are consistent with old granulo matous disease. No pleural effusion. There is left atrial enlargement of the heart. There are coronar y artery calcifications. There is a right internal jugular port with tip in right atrium. There is a left chest wall pacer with leads in the right atrium and right ventricle. No pericardial effusion. Th ere is a small sliding hiatal hernia. There is mild chronic anterior wedging of multiple thoracic alin tebral bodies. There is moderate thoracic spondylosis. ABDOMEN/PELVIS CT: There is a chronic 11 mm hyperenhancing mass in right hepatic lobe, likely a hemangioma or focal nodu lar hyperplasia. There is thickening of the fundus of the gallbladder, consistent with adenomyomatosi s. Calcifications in the spleen are consistent with old granulomatous disease. The pancreas and adren al glands are normal. There is cortical thinning of the kidneys. There are cysts in the kidneys measu ring up to 2.1 cm on the left. There are no dilated loops of bowel. The appendix is not visualized. T here are no pathologically enlarged lymph nodes. There is no free intraperitoneal fluid. There is evon cified atherosclerosis of the aorta and many of the other arteries. There is severe stenosis of toan c axis. There is no significant stenosis of superior mesenteric artery or inferior mesenteric artery. There are no pathologically enlarged lymph nodes. There is no free intraperitoneal fluid. There is s evere lumbar spondylosis. IMPRESSION: 1. No evidence of metastatic disease. Reviewed, dictated and finalized at location A.
== END 2023-02-11 07:35 | disposition home or self-care (01) ==
PROVIDERS: PCP Family Medicine; Visit Provider Internal Medicine Hematology & Oncology
DX: C56.9 Malignant neoplasm of unspecified ovary (principal)
CPT/HCPCS: 71260; 74177; Q9967

== ENCOUNTER 2023-05-13 08:04 | Outpatient (CLI) | payer MEDICARE, SELFPAY ==
--- NOTE | ~2023-05-13 | CT_ITS ---
EXAMINATION: CT chest abdomen pelvis wo con DATE: 05/13/2023 08:23 INDICATION: Ovarian cancer TECHNIQUE: Computed tomography (CT) of the chest, abdomen, and pelvis was performed without intraveno us contrast. Automated exposure control and iterative reconstruction technique were employed. The dos e-length product was 383.59 mGy-cm. COMPARISON: CT 02/11/2023, 03/15/22 FINDINGS: CHEST CT: There is mild atelectasis bilaterally. A calcified left lung nodule and calcified left hilar lymph no nasir are consistent with old granulomatous disease. There is a new 8 mm nodule in right lower lobe abu tting the pleura. Again seen are multiple pulmonary nodules measuring up to 4 mm, likely benign. No p leural effusion. The heart size is normal. There are coronary artery calcifications. No pericardial e ffusion. There is a left chest wall pacer with leads in the right atrium and right ventricle. There i s a right internal jugular port with tip at superior cavoatrial junction. ABDOMEN/PELVIS CT: The liver and gallbladder are normal. There is a small sliding hiatal hernia. Calcifications in the s pleen are consistent with old granulomatous disease. The pancreas, adrenal glands, and right kidney a re normal. There are peripelvic cysts in left kidney measuring up to 17 mm. There is no urolithiasis. There are no dilated loops of bowel. The appendix is not visualized. There are no pathologically enl arged lymph nodes. There is no free intraperitoneal fluid. There is severe lumbar spondylosis. IMPRESSION: 1. New 8 mm nodule in right lung lower lobe, which may be infection or neoplasm. Reviewed, dictated and finalized at location A. E MINER BLASTING IMPRESSION: 1. New 8 mm nodule in right lung lower lobe, which may be infection or neoplasm .
== END 2023-05-13 08:05 | disposition home or self-care (01) ==
PROVIDERS: PCP Family Medicine; Visit Provider Internal Medicine Hematology & Oncology
DX: C56.9 Malignant neoplasm of unspecified ovary (principal); R91.1 Solitary pulmonary nodule
CPT/HCPCS: 71250; 74176

== ENCOUNTER 2023-08-01 13:20 | Outpatient (CLI) | payer MEDICARE, SELFPAY ==
--- NOTE | ~2023-08-01 | XR_ITS ---
EXAMINATION: XR chest 2V DATE: 08/01/2023 13:38 INDICATION: Shortness of breath, history of ovarian cancer TECHNIQUE: PA and lateral views of the chest are obtained. COMPARISON: 01/17/2022 FINDINGS: The lungs are free of acute opacities. There is mild atelectasis or scarring in the right m idlung zone. No pleural effusion or pneumothorax. The cardiomediastinal silhouette is normal. There i s moderate thoracic spondylosis. A dual-lead cardiac pacemaker of the left chest wall ends with leads in expected locations. May right subclavian Port-A-Cath ends with its tip in the proximal right atri um. IMPRESSION: 1. No acute cardiopulmonary abnormality. Reviewed, dictated and finalized at location L. RDER GRAVITY PROSPECTING
== END 2023-08-01 13:21 | disposition home or self-care (01) ==
LOC: ANHIMG 13:22
PROVIDERS: PCP Family Medicine; Visit Provider Internal Medicine Hematology & Oncology
DX: R06.00 Dyspnea, unspecified (principal)
CPT/HCPCS: 71046

== ENCOUNTER 2023-08-30 07:13 | Outpatient (CLI) | payer MEDICARE, SELFPAY ==
--- NOTE | ~2023-08-30 | CT_ITS ---
Clinical Indication: Ovarian cancer CT Scan of the Chest, Abdomen, and Pelvis with Contrast: Technique: Contiguous sections were acquired throughout the chest, abdomen, and pelvis after intraven ous administration of 100 cc of Omnipaque 350. Dose reduction technique was used on this scan by romi duncan automated exposure control and iterative reconstruction technique. The dose-length product (DL P) was 331.01 mGy-cm. COMPARISON: 05/13/2023 Findings: There is no evidence of any significant mediastinal, hilar or axillary lymphadenopathy. There are ath erosclerotic calcifications of the aorta and coronary arteries. No aortic aneurysm or dissection seen . No large pulmonary embolus evident. There is extensive wall thickening of the esophagus. There is no evidence of pleural or pericardial effusion. Stable chronic scarring in the right middle lobe and lingula. No acute pulmonary abnormality seen. St able 3 mm right lower lobe pulmonary nodule. The liver, spleen, pancreas, gallbladder, adrenals and kidneys are within normal limits. There are at herosclerotic calcifications of the aorta. No lymphadenopathy. No bowel obstruction or bowel wall thickening. There is no evidence to suggest acute appendicitis. Urinary bladder is unremarkable. No pelvic mass seen. Patient post hysterectomy. No ascites. Impression: No evidence for active malignancy or metastatic disease. Stable pulmonary scarring. Previously noted 8 mm right basilar pulmonary nodule is no longer seen, re solved. Esophagitis. Reviewed, dictated and finalized at [facility]. 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 Stable pulmonary scarring. Previously noted 8 mm right basilar pulmonary nodule is no longer seen, resolved. Esophagitis.
== END 2023-08-30 07:14 | disposition home or self-care (01) ==
PROVIDERS: PCP Family Medicine; Visit Provider Internal Medicine Hematology & Oncology
DX: C56.9 Malignant neoplasm of unspecified ovary (principal); K20.90 Esophagitis, unspecified without bleeding
CPT/HCPCS: 71260; 74177; Q9967

== ENCOUNTER 2023-09-14 21:35 | Emergency (ER) | payer MEDICARE, SELFPAY ==
[2023-09-14] VITALS (7 sets, daily range): BP systolic 156–194; BP diastolic 68–82; PULSE 76–98; RESP 13–25; TEMP 36.4–36.6; O2SAT 100
--- NOTE | ~2023-09-14 | XR_ITS ---
XR chest 2V 09/14/2023 22:21 Indication: Shortness of breath with exertion Procedure: 2 view chest Comparison: Comparison to multiple prior studies sequentially, with oldest reviewed study dated 12/04. Findings: Heart size normal. Elevated right diaphragm. There are linear subsegmental atelectasis in t he mid lungs bilaterally. Portacatheter tip in the right atrium. Pacemaker leads are in expected posi tion. Elevated right diaphragm. No pneumothorax. Impression: 1: Bibasilar atelectasis. Reviewed, dictated and finalized at location A. Impression: 1: Bibasilar atelectasis.
--- NOTE | ~2023-09-14 | CT_ITS ---
EXAMINATION: CTA chest PE protocol DATE: 09/15/2023 06:59 CDT INDICATION: Shortness of breath. Cancer. TECHNIQUE: Computed tomographic angiography (CTA) of the chest was performed with 100 mL Omnipaque-35 0 intravenous contrast. The dose-length product was 173.00 mGy-cm. Maximum intensity projection 3D-re constructions of the aorta and other arteries were constructed by the technologist on a separate work station. Automated exposure control and iterative reconstruction technique were employed. COMPARISON: CT dated 08/30/2023. FINDINGS: Study is technically adequate without evidence for pulmonary embolism. Heart size normal. N o significant pleural or pericardial effusion. No thoracic lymphadenopathy. There is a left chest wal l pacemaker. No focal consolidation. There is atelectasis bilaterally. No endobronchial lesions. No p neumothorax. There is calcified granuloma in the left lung base. There is right-sided portacatheter. Accentuated thoracic kyphosis. Moderate thoracic spondylosis. No acute osseous abnormality. IMPRESSION: 1. No acute cardiopulmonary disease. No evidence for pulmonary embolism. Reviewed, dictated and finalized at location A.
--- NOTE | 2023-09-14 21:44 | ECG_ITS ---
Measurements Intervals Portal Rate: 89 P: -1 MS: 260 QRS: -78 QRSD: 138 T: 82 QT: 382 QTc: 465 Interpretive Statements ELECTRONIC ATRIAL PACEMAKER WITH INHIBITION ELECTRONIC VENTRICULAR PACEMAKER BASELINE ARTIFACT- I, II, III, AVR, AVL, V1-V3 NO FURTHER INTERPRETATION IS POSSIBLE ATYPICAL ECG COMPARED TO ECG 12/11/2021 00:20:34 ELECTRONIC AV PACEMAKER NOW PRESENT Electronically Signed On 09-15-2023 7:39:08 CDT by Jose Varghese D.O.
[2023-09-14 22:07] LABS: Basophils Percent Auto 0.4 % (0.2-1.2); Eosinophils Percent Auto 0.2 % (0-4.4); Hematocrit 30.8 % (37.0-47.0); Hemoglobin 9.8 g/dL (12.0-15.0); Immature Granulocyte Absolute 0.05 K/mm3 (0.00-0.031); Immature Granulocyte Percent A 1.1 % (0-0.5); Immature Platelet Fraction Pct 2.3 % (0.9-11.2); Lymphocytes Absolute Auto 0.57 K/mm3 (0.9-3.2); Lymphocytes Percent Auto 12.2 % (18.3-44.2); Mean Corpuscular HGB Conc 31.8 g/dl (32-36); Mean Corpuscular Hemoglobin 34.4 pg (26-34); Mean Corpuscular Volume 108.1 fl (80-100); Mean Platelet Volume 9.7 fl (7.4-10.4); Monocytes Absolute Auto 0.3 K/mm3 (0.1-0.6); Monocytes Percent Auto 5.6 % (2.6-8.5); Neutrophils Absolute Auto 3.8 K/mm3 (1.3-6.7); Neutrophils Percent Auto 80.5 % (45.5-73.1); Nucleated Red Blood Cells Perc 1.3 % (0.0-0.2); Platelet Count Result 64 k/mm3 (150-375); Red Blood Count 2.85 M/mm3 (4.2-5.4); Red Cell Distribution Width 18.7 % (11.5-14.5); White Blood Count 4.7 K/mm3 (4.5-10.0)
[2023-09-14 22:17] LABS: Alanine Aminotransferase 47 U/L (6-35); Albumin Level 3.9 g/dL (3.5-5.1); Alkaline Phosphatase 93 U/L (38-126); Anion Gap 7 mmol/L (8-16); Aspartate Amino Transferase 39 U/L (14-36); Bilirubin,Total 1.1 mg/dL (0.2-1.3); Blood Urea Nitrogen 20 mg/dL (7-17); Calcium 9.1 mg/dL (8.4-10.2); Carbon Dioxide 24 mmol/L (22-30); Chloride 104 mmol/L (98-107); Estimated CRCL calculation 22 ml/min; Estimated Glomerular Filt Rate 36; Glucose 156 mg/dL (65-110); Potassium 3.7 mmol/L (3.4-5.0); Sodium 135 mmol/L (137-145)
[2023-09-14 22:19] LABS: Anisocytosis 1+; Microcytosis 1+ (NORMAL); Platelet Estimate Decreased (Adequate); Tear Drop Cells 1+
[2023-09-14 22:20] LABS: Schistocytes None Seen
[2023-09-14 22:26] LABS: NT Pro B Type Natriuretic Pept 1360 pg/mL (19.9-100)
[2023-09-14 22:42] LABS: Influenza A QL RT-PCR Negative (Negative); Influenza B QL RT-PCR Negative (Negative); RSV RNA, RT-PCR Negative (Negative); SARS-CoV-2 RNA PCR Negative (Negative)
--- NOTE | 2023-09-14 23:48 | ED.SOB ---
HPI - SOB/Dyspnea General Chief Complaint: Shortness of Breath/Dyspnea Stated Complaint: SOB, on chemo Time Seen by Provider: 09/14/23 23:39 Source: patient Mode of arrival: wheelchair Limitations: no limitations History of Present Illness HPI Narrative: This is a 83 year old female that presents to the ER for exertional shortness of breath. Ongoing over the last couple of weeks. Worsening over the last couple of days. Reports associated productive cough. Reports history of ovarian cancer for which she is currently undergoing chemotherapy with Dr. Mosher. Reports lower extremity edema for which she was started on a diuretic with improvement. Denies chest pain. Related Data Home Medications Medication Instructions Recorded Confirmed omega 4-qjz-ffo-fish oil 300 1 cap PO DAILY 07/21/21 08/29/23 mg-1,000 mg capsule (Fish Oil) psyllium husk 3.4 gram/5.4 gram 2 tsp PO DAILY PRN Constipation 09/25/21 08/29/23 oral powder (Metamucil) ascorbate calcium (vitamin C) 500 500 mg PO DAILY 04/06/22 08/29/23 mg tablet lidocaine-prilocaine 2.5 %-2.5 % 1 applic topical ONCE 11/23/22 08/29/23 topical cream magnesium 200 mg tablet 400 mg PO DAILY 11/23/22 08/29/23 ondansetron 8 mg disintegrating 8 mg PO Q8H PRN Nausea 11/23/22 08/29/23 tablet polyethylene glycol 17 ea miscellaneous DAILY PRN 11/23/22 08/29/23 Constipation cholecalciferol (vitamin D3) 50 50 mcg PO DAILY 03/01/23 08/29/23 mcg (2,000 unit) capsule Allergies Allergy/AdvReac Type Severity Reaction Status Date / Time No Known Allergies Allergy Verified 09/14/23 21:44 Review of Systems Review of Systems: CONSTITUTIONAL: Denies fever ENT: Reports congestion CARDIOVASCULAR: Reports edema. Denies chest pain RESPIRATORY: Reports cough and dyspnea. All systems reviewed & are unremarkable except as noted in HPI and below PMFSH Past Medical History Medical History Acute sinusitis Body mass index (bmi) 25.0-25.9, adult (02/25/19) Chronic GERD Dizziness Dyslipidemia Essential hypertension Foreign body in skin History of IBS History of mitral valve prolapse Hx of cardiac pacemaker Hyperlipidemia Low magnesium level Osteoarthritis Ovarian cancer Overactive bladder Preoperative clearance Pulmonary emboli URI (upper respiratory infection) Surgical History Surgical History History of colon resection History of hemorrhoidectomy History of hysterectomy for cancer Family History Family History Father Cerebrovascular accident, Onset Age: 88 Mother Family history of arthritis, Onset Age: 85 Social History Social History Social History: the patient lives with her and he is the durable power regulatory attorney for healthcare. The patient has no children. 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 She does not use any alcohol marijuana or illicit drugs. Code status full code Smoking status: Never smoker Second hand tobacco smoke exposure: No Alcohol intake: never Substance use: never Substance use type: does not use Lack of Transportation: No Lack of Food: Never True Current Housing: I Have Housing Concerned About Future Housing: No Difficulty Paying Gas/Electric Bills: No Difficulty Paying for Meds: No Currently Unemployed: No Difficulty w/ Childcare or Family Care: No Living arrangements: with family Occupation/Education: retired Gender identity (if verbalized by the patient): Female Sexual Orientation (if Verbalized by the Patient): Straight or Heterosexual Spiritual care concerns: No Exam Narrative: GENERAL: Elderly, well-nourished, and in no acute distress. HEAD: Normocephalic, atraumatic. EYES: EOMI. ENT: Nares
[2023-09-15] VITALS (13 sets, daily range): BP systolic 152–169; BP diastolic 63–82; PULSE 72–83; RESP 13–25; O2SAT 96–100
[2023-09-15 00:17] LABS: Troponin I < 0.012 ng/mL (0.000-0.034)
== END 2023-09-15 02:52 | disposition home or self-care (01) ==
PROVIDERS: Preventive Medicine Aerospace Medicine; Emergency Provider Physician Assistant; PCP Family Medicine
DX: R06.00 Dyspnea, unspecified (principal); D64.9 Anemia, unspecified; D69.6 Thrombocytopenia, unspecified; Z20.822 Contact with and (suspected) exposure to COVID-19; C56.9 Malignant neoplasm of unspecified ovary; I10 Essential (primary) hypertension; I34.1 Nonrheumatic mitral (valve) prolapse; E78.5 Hyperlipidemia, unspecified; K58.9 Irritable bowel syndrome, unspecified; K21.9 Gastro-esophageal reflux disease without esophagitis; N32.81 Overactive bladder; Z95.0 Presence of cardiac pacemaker; Z86.711 Personal history of pulmonary embolism; Z90.49 Acquired absence of other specified parts of digestive tract; Z90.710 Acquired absence of both cervix and uterus; Z79.60 Long term (current) use of unspecified immunomodulators and immunosuppressants
CPT/HCPCS: 36415; 71046; 71275; 80053; 83880; 84484; 85025; 85055; 87637; 93005; 99284; Q9967

== ENCOUNTER 2023-10-21 09:43 | Outpatient (CLI) | payer MEDICARE, SELFPAY ==
--- NOTE | ~2023-10-21 | US_ITS ---
EXAMINATION: US carotid duplex BI DATE: 10/21/2023 10:47 INDICATION: Retinol use. Embolism. TECHNIQUE: Grayscale, color Doppler, and pulsed Doppler images of the cervical carotid arteries were obtained. The degree of vessel stenosis is placed in one of the following categories: normal, <50%, 5 0-69%, >=70% but less than near-occlusion, near-occlusion, or total occlusion. Note that percent sten osis relative to normal distal artery lumen diameter is indirectly measured from velocity measurement s as described by Faisal, et al. Radiology 2003; 229:340-346. Notes: Normal: Peak systolic velocity <125 centimeters/sec and no plaque <50%. Peak systolic velocity <125 ( EDV <40; ICA/CCA PSV ratio <2.0; used these factors only a tandem lesions or low cardiac output or co ntralateral disease) 50-69 %: PSV 125-230 (EDV 40-100; ratio 2-4) >= 70% but less than near occlusion: PSV greater than 230 (EDV > 100; ratio> 4.0) Near Occlusion: PSV that is variable; markedly narrowed lumen Occlusion: Absent flow on color/spectral Doppler and no lumen on joseph scale. COMPARISON: None. FINDINGS: RIGHT: The right common carotid artery (CCA) peak systolic velocity (PSV) is 81 cm/s. The right internal car otid artery (ICA) PSV is 95 cm/s. The right ICA end-diastolic velocity (EDV) is 19 cm/s. The right IC A/CCA PSV ratio is 1.2. The external carotid artery (ECA) PSV is 77 cm/s. There is antegrade flow in the right vertebral artery. LEFT: The left CCA PSV is 81 cm/s. The left ICA PSV is 66 cm/s. The left ICA EDV is 14 cm/s. The left ICA/C CA PSV ratio is 0.8. The ECA PSV is 60 cm/s. There is antegrade flow in the left vertebral artery. IMPRESSION: 1. Less than 50% stenosis in the right internal carotid artery by sonographic criteria. 2. Less than 50% stenosis in the left internal carotid artery by sonographic criteria. Reviewed, dictated and finalized at location B. IMPRESSION: 1. Less than 50% stenosis in the right internal carotid artery by sonographic c christiano. 2. Less than 50% stenosis in the left internal carotid artery by sonographic cr cary.
== END 2023-10-21 09:44 | disposition home or self-care (01) ==
LOC: ANHIMG 09:43
PROVIDERS: PCP Family Medicine; Visit Provider Physician Assistant Medical
DX: R42 Dizziness and giddiness (principal); H34.9 Unspecified retinal vascular occlusion
CPT/HCPCS: 93880

== ENCOUNTER 2023-11-07 07:16 | Outpatient (CLI) | payer MEDICARE, SELFPAY ==
--- NOTE | ~2023-11-07 | CT_ITS ---
Clinical Indication: Ovarian cancer CT Scan of the Chest, Abdomen, and Pelvis without Contrast: Technique: Contiguous sections were acquired throughout the chest, abdomen, and pelvis without IV con trast administration. Dose reduction technique was used on this scan by utilizing automated exposure control and iterative reconstruction technique. The dose-length product (DLP) was 251.98 mGy-cm. COMPARISON: 09/15/2023, 08/30/2023 Findings: There is no evidence of any significant mediastinal, hilar or axillary lymphadenopathy. Extensive cor onary artery calcifications are present. Pacemaker device present. There is no evidence of pleural or pericardial effusion. There is probable bibasilar atelectatic change or scarring at the lung bases, versus possibly atypica l infectious process. Calcified left basilar granuloma present. The liver, spleen, pancreas, gallbladder, adrenals and kidneys are within normal limits. No evidence of aortic aneurysm. No lymphadenopathy. No bowel obstruction or bowel wall thickening. There is no evidence to suggest acute appendicitis. Urinary bladder is unremarkable. No pelvic mass seen. No ascites. Impression: No evidence for active malignancy or metastatic disease. Probable bibasilar scarring or atelectatic change, versus possibly atypical infectious process. Corre late clinically. Reviewed, dictated and finalized at location . Impression: No evidence for active malignancy or metastatic disease. Probable bibasilar scarring or atelectatic change, versus possibly atypical inf ectious process. Correlate clinically.
[2023-11-07 07:48] LABS: Estimated Glomerular Filt Rate 23
== END 2023-11-07 07:17 | disposition home or self-care (01) ==
PROVIDERS: PCP Family Medicine; Visit Provider Internal Medicine Hematology & Oncology
DX: C56.9 Malignant neoplasm of unspecified ovary (principal)
CPT/HCPCS: 36415; 71250; 74176; 80047; 80053; 81003; 85025; 96413; Q5129

== ENCOUNTER 2023-12-24 13:58 | Outpatient (CLI) | payer MEDICARE, SELFPAY ==
--- NOTE | 2023-12-24 12:28 | ECHO_ITS ---
Patient Info Name: Ml Wells Age: 83 years : 1940 Gender: Female Ht: 62 in Wt: 118 lbs BSA: 1.53 m2 HR: 81 bpm BP: 161 / 88 mmHg Technical Quality: Good Exam Date: 12/24/2023 12:46 PM Exam Location: Echo Lab Patient Status: Preadmit Admit Date: 12/24/2023 Staff Ordering Physician: Jose Varghese DO Shellac Polisher: Jonny Brown RDCS Attending Provider: Jose Varghese DO Referring Physician: Abimael CABRALES; Exam Type: CA echo doppler color flow Study Info Indications R06.00 - Dyspnea, unspecified Complete two-dimensional, color flow and Doppler transthoracic echocardiogram is performed. Summary 1. Complete two-dimensional, color flow and Doppler transthoracic echocardiogram is performed. 2. Left ventricular chamber dimension is normal. 3. Left ventricular systolic function is normal, estimated at 60-65%. 4. The left ventricular diastolic function is grade I diastolic dysfunction. 5. E/e' 15 is elevated. 6. Linear artifact in right ventricle suggestive of catheter(s), pacemaker lead(s), or ICD lead(s). 7. Left atrial chamber dimension is mildly enlarged. 8. Linear artifact in the right atrium suggestive of catheter(s), pacemaker lead(s), or ICD lead(s). 9. There is moderate aortic valve sclerosis. 10. The mitral valve has moderately calcified annulus. 11. There is mild to moderate mitral valve regurgitation. 12. There is mild tricuspid valve regurgitation. 13. Mild pulmonary hypertension, estimated pulmonary arterial systolic pressure is 45 mmHg. Left Ventricle E/e' 15 is elevated. Left ventricular chamber dimension is normal. Left ventricular systolic function is normal, estimated at 60-65%. The left ventricular diastolic function is grade I diastolic dysfunction. Right Ventricle Linear artifact in right ventricle suggestive of catheter(s), pacemaker lead(s), or ICD lead(s). Right ventricular chamber dimension is normal. Right ventricular systolic function is normal. Left Atria Left atrial chamber dimension is mildly enlarged. Right Atria Linear artifact in the right atrium suggestive of catheter(s), pacemaker lead(s), or ICD lead(s). Right atrial chamber dimension is normal. Aortic Valve The aortic valve is trileaflet. There is moderate aortic valve sclerosis. There is no aortic valve stenosis. There is no aortic valve regurgitation. Pulmonic Valve There is no pulmonic regurgitation. Mitral Valve The mitral valve has moderately calcified annulus. There is no mitral valve stenosis. There is mild to moderate mitral valve regurgitation. Tricuspid Valve There is mild tricuspid valve regurgitation. Mild pulmonary hypertension, estimated pulmonary arterial systolic pressure is 45 mmHg. Pericardium/Pleural There is no pericardial effusion. Inferior Vena Cava Normal inferior vena cava with >50% collapse upon inspiration consistent with normal right atrial pressure, 5 mmHg. Aorta The aortic root size at the sinus of Valsalva is normal. Left Ventricular Outflow Tract Name Value Normal LVOT 2D LVOT Diameter 2.0 cm LVOT Doppler LVOT Peak Gradient 7 mmHg LVOT Mean Gradient 4 mmHg LVOT VTI 29
== END 2023-12-24 13:59 | disposition home or self-care (01) ==
PROVIDERS: PCP Family Medicine; Visit Provider Internal Medicine Cardiovascular Disease
DX: R06.00 Dyspnea, unspecified (principal); I08.3 Combined rheumatic disorders of mitral, aortic and tricuspid valves
CPT/HCPCS: 93306

== ENCOUNTER 2024-01-23 07:59 | Outpatient (CLI) | payer MEDICARE, SELFPAY ==
--- NOTE | ~2024-01-23 | CT_ITS ---
EXAMINATION: CT chest abdomen pelvis w con DATE: 01/23/2024 08:40 INDICATION: Malignant neoplasm of ovary. TECHNIQUE: Computed tomography (CT) of the chest, abdomen, and pelvis was performed with 100 mL Omnip aque 350 intravenous contrast. Automated exposure control and iterative reconstruction technique were employed. The dose-length product was 272.93 mGy-cm. COMPARISON: CT chest, abdomen, and pelvis 11/07/2023 FINDINGS: CHEST CT: There is chronic eventration of anterior right hemidiaphragm. There is mild atelectasis bilaterally. A calcified left lung nodule and calcified left hilar lymph nodes are consistent with old granulomato us disease. There is a right posterior diaphragmatic hernia containing fat. No pleural effusion. Card iomegaly is noted. There are coronary artery calcifications. No pericardial effusion. There is a left chest wall pacer with leads in the right atrium and right ventricle. There is a right internal jugul ar port with tip in right atrium. There are nodules in the thyroid measuring up to 6 mm, likely not c linically significant. There is mild chronic anterior wedging of multiple vertebral bodies. There is moderate thoracic spondylosis. ABDOMEN/PELVIS CT: The liver is normal. Calcifications in the spleen are consistent with old granulomatous disease. The gallbladder is distended, likely secondary to fasting. There is chronic wall thickening of the fundus of the gallbladder, consistent with adenomyomatosis. There is a 7 mm cystic lesion of the pancreas, likely benign. The adrenal glands are normal. There is cortical thinning of the kidneys. There is a 9 mm cyst in right kidney. There is calcified atherosclerosis of the aorta and many of the other arter ies. There are no dilated loops of bowel. The appendix is not visualized. There are no pathologically enlarged lymph nodes. There is trace pelvic ascites. There is severe osteoarthritis of the hips. The re is severe lumbar spondylosis. IMPRESSION: 1. No evidence of metastatic disease. Reviewed, dictated and finalized at location A.
[2024-01-23 08:28] LABS: Estimated Glomerular Filt Rate 39
== END 2024-01-23 08:00 | disposition home or self-care (01) ==
PROVIDERS: PCP Physician Assistant Medical; Visit Provider Internal Medicine Hematology & Oncology
DX: C56.9 Malignant neoplasm of unspecified ovary (principal)
CPT/HCPCS: 71260; 74177; Q9967

== ENCOUNTER 2024-03-12 08:04 | Outpatient (CLI) | payer MEDICARE, SELFPAY ==
[2024-03-12 09:08] LABS: Cholesterol 175 mg/dL (0-200); HDL Direct 42 mg/dL; Triglycerides 136 mg/dL (<150)
[2024-03-12 09:19] LABS: LDL Cholesterol Direct 81 mg/dL
== END 2024-03-12 08:05 | disposition home or self-care (01) ==
LOC: ANHLAB 08:06
PROVIDERS: PCP Physician Assistant Medical; Visit Provider Physician Assistant Medical
DX: E78.5 Hyperlipidemia, unspecified (principal); I10 Essential (primary) hypertension; K21.9 Gastro-esophageal reflux disease without esophagitis; D64.9 Anemia, unspecified
CPT/HCPCS: 36415; 80061

== ENCOUNTER 2024-04-16 07:19 | Outpatient (CLI) | payer MEDICARE, SELFPAY ==
--- NOTE | ~2024-04-16 | CT_ITS ---
EXAMINATION: CT chest abdomen pelvis w con DATE: 04/16/2024 08:20 INDICATION: Malignant neoplasm of ovary. TECHNIQUE: Computed tomography (CT) of the chest, abdomen, and pelvis was performed with 100 mL Omnip aque 350 intravenous contrast. Automated exposure control and iterative reconstruction technique were employed. The dose-length product was 303.52 mGy-cm. COMPARISON: CT chest, abdomen, and pelvis 01/23/2024 FINDINGS: CHEST CT: The lungs demonstrate mild atelectasis. A calcified left lung nodule and calcified left hilar lymph n odes are consistent with old granulomatous disease. No pleural effusion. Cardiomegaly is noted. There are coronary artery calcifications. No pericardial effusion. There is a right subclavian port with t ip in right atrium. There is a left chest wall pacer with leads in the right atrium and right ventric le. ABDOMEN/PELVIS CT: The liver and gallbladder are normal. Calcifications in the spleen are consistent with old granulomat ous disease. The pancreas and adrenal glands are normal. There is cortical thinning of the kidneys. T here are cysts in the kidneys measuring up to 6 mm on the right. There are no dilated loops of bowel. There is calcified atherosclerosis of the aorta and many of the other arteries. There are no patholo gically enlarged lymph nodes. There is trace pelvic ascites. There are changes of omentectomy. There is severe lumbar spondylosis. There is moderate thoracic spondylosis. IMPRESSION: 1. No evidence of metastatic disease. Reviewed, dictated and finalized at location A.
== END 2024-04-16 07:20 | disposition home or self-care (01) ==
PROVIDERS: PCP Physician Assistant Medical; Visit Provider Internal Medicine Hematology & Oncology
DX: C56.9 Malignant neoplasm of unspecified ovary (principal)
CPT/HCPCS: 71260; 74177; Q9967

== ENCOUNTER 2024-09-03 10:31 | Outpatient (CLI) | payer MEDICARE, SELFPAY ==
[2024-09-03 12:00] LABS: Anion Gap 12 mmol/L (4-12); Blood Urea Nitrogen 37 mg/dL (7-17); Calcium 9.1 mg/dL (8.4-10.2); Carbon Dioxide 19 mmol/L (22-30); Chloride 112 mmol/L (98-107); Estimated Glomerular Filt Rate 32; Glucose 106 mg/dL (65-110); Sodium 143 mmol/L (137-145)
--- OUTSIDE RECORDS SUMMARY | 2024-09-03 12:13 | XMS_ITS | Clinical Summary ---
Author Organization [facility] Address [address] [place] [address] Phone Care Team Providers Care Paymaster Of Purses Name Role Phone Unavailable Primary Care Provider Unavailabl e Allergies No known active allergies Medications pravastatin (PRAVACHOL) 40 mg tablet Take 40 mg by mouth daily with supper. Active losartan (COZAAR) 50 mg tablet Take 100 mg by mouth daily. Active Fish Oil-Minerva-3 Fatty Acids 300-500 mg Capsule Take by mouth. Activ e ferrous sulfate 325 mg (65 mg iron) tablet Take 325 mg by mouth daily. Active psyllium (METAMUCIL) Packet Take 1 Packet by mouth daily. Active pantoprazole (PROTONIX) 40 mg Tablet, Delayed Release (E.C.) Take 40 mg by mouth daily. Active cyanocobalamin (VITAMIN B-12) 500 mcg tablet Take 1,000 mcg by mouth daily. Active polyethylene glycol (MIRALAX) 17 gram Powder in Packet Take 1 Packet (17 Grams) by mouth 2 times daily as needed for Constipation. 2 Active acetaminophen (TYLENOL) 500 mg tablet Take 500 mg by mouth. Active aspirin (ECOTRIN EC) 81 mg Tablet, Delayed Release (E.C.) 2 Active ASCORBIC ACID, VITAMIN C, ORAL Take by mouth. Activ e potassium chloride (KLOR-CON) 10 mEq Extended Release tabletIndicati ons:Chronic anemia Take 1 Tablet (10 mEq) by mouth daily with breakfast. 30 Tablet 3 2 Active MAGNESIUM ORAL Take by mouth. Active amLODIPine (NORVASC) 10 mg tablet Starting 05/12. Take 1 Tablet (10 mg) by mouth daily. 30 Tablet 1 05/12/2022 10:07 AM INSURANCE PROFESSIONAL 2 Active Additional Information Patient taking differently: 5 mgOral DAILY, Reported on 06/04/2024 oxyBUTYnin chloride (DITROPAN XL) 10 mg Extended Release 24 hour tablet 3 Active loperamide (IMODIUM) 2 mg Tablet Take 2 mg by mouth 4 times daily as needed for Diarrhea/Loose Stools. Active famotidine (PEPCID) 20 mg tablet Take 20 mg by mouth 2 times daily. Active dexAMETHasone (DECADRON) 4 mg tablet Take 4mg bid one day before the chemo and on the day of chemo and one day after the chemo 30 Tablet 4 3 Active albuterol sulfate HFA 90 mcg/actuation aerosol inhaler Take 2 Puffs by inhalation every 6 hours as needed for Shortness of Breath. Active BENZONATATE ORAL Take 100 mg by mouth 1 time daily as needed. Active ALPRAZolam (XANAX) 0.25 mg tablet Take 0.25 mg by mouth 3 times daily as needed for Anxiety. Active cholestyramine , with sugar, (QUESTRAN) 4 gram Powder in Packet Take 1 Packet by mouth 2 times daily. 60 Packet 1 4 Active ondansetron (ZOFRAN ODT) 8 mg Tablet, Rapid Dissolve Dissolve 1 tablet on top of tongue then swallow with saliva every 8 hours as needed for nausea or vomiting 30 Tablet 1 4 Active lidocaine-pril ocaine (EMLA) 2.5-2.5 % Cream Apply to affected area see administration instructions. 30 Gram 1 4 Active furosemide (Lasix) 20 mg tablet Take 1 Tablet (20 mg) by mouth daily. 30 Tablet 2 4 Active celecoxib (CeleBREX) 200 mg capsule Take 1 Capsule by mouth daily. 4 Active hydroCHLOROthi azide 25 mg tablet Take 1 Tablet by mouth daily. 5 Active hydrALAZINE (APRESOLINE) 50 mg tablet Take 1 Tablet by mouth 3 times daily. 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 PE (pulmonary thromboembolism) Pacemaker IBS (irritable bowel syndrome) Hyperlipidemia HTN (hypertension) GERD (gastroesophageal reflux disease) Elevated tumor markers Pelvic mass in female Other specified anemias Medically complex patient Treatment plan provided Abnormal weight loss Encounters Date Type Department Care Team Description 08/31/2024 Orders Only [facility] Oncology and Hematology - [address] [place] [id number] Shiv Mosher MD Malignant neoplasm of ovary, unspecified laterality (CMS/HCC) 08/29/2024 External Device Data STL ABSTRACTION Provider, Abstract 08/28/2024 External Device Data STL ABSTRACTION Provider, Abstract 08/28/2024 Orders Only [facility] Oncology and Hematology - [address] [place] [address] Shiv Mosher MD 08/27/2024 8:30 AM INSURANCE PROFESSIONAL Office Visit [facility] Oncology and Hematology [facility] [address] [place] [address] Shiv Mosher MD Malignant neoplasm of ovary, unspecified laterality (CMS/HCC) (Primary Dx) 08/27/2024 Orders Only [facility] Oncology and Hematology - [address] [place] [address] Shiv Mosher MD 08/26/2024 External Device Data STL ABSTRACTION Provider, Abstract 08/24/2024 Orders Only [facility] Oncology and Hematology - [address] [place] [address] Shiv Mosher MD Malignant neoplasm of ovary, unspecified laterality (CMS/HCC) 08/17/2024 Orders Only [facility] Oncology and Hematology - [address] [place] [address] Shiv Mosher MD Malignant neoplasm of ovary, unspecified laterality (CMS/HCC) 08/10/2024 Orders Only [facility] Oncology and Hematology - [address] [place] [id number] Shiv Mosher MD Malignant neoplasm of ovary, unspecified laterality (CMS/HCC) 08/06/2024 Orders Only [facility] Oncology and Hematology - [address] Shiv Mosher MD Malignant neoplasm of ovary, unspecified laterality (CMS/HCC) (Primary Dx) 08/03/2024 Orders Only [facility] Oncology and Hematology - [address] Shiv Mosher MD Malignant neoplasm of ovary, unspecified laterality (CMS/HCC) 07/27/2024 Orders Only [facility] Oncology and Hematology - [address] Shiv Mosher MD Malignant neoplasm of ovary, unspecified laterality (CMS/HCC) 07/20/2024 Orders Only [facility] Oncology and Hematology - [address] [place] [id number] Shiv Mosher MD Malignant neoplasm of ovary, unspecified laterality (CMS/HCC) 07/16/2024 8:45 AM INSURANCE PROFESSIONAL Office Visit [facility] Oncology and Hematology - [address] [place] [id number] Shiv Mosher MD Malignant neoplasm of ovary, unspecified laterality (CMS/HCC) (Primary Dx) 07/13/2024 Orders Only [facility] Oncology and Hematology - [address] [place] [address] Shiv Mosher MD Malignant neoplasm of ovary, unspecified laterality (CMS/HCC) 07/09/2024 Orders Only [facility] Oncology and Hematology - [address] [place] [id number] Shiv Mosher MD 07/06/2024 Orders Only [facility] Oncology and Hematology - [address] [place] [address] Shiv Mosher MD Malignant neoplasm of ovary, unspecified laterality (CMS/HCC) 07/01/2024 Orders Only [facility] Oncology and Hematology - [address] [place] [address] Shiv Mosher MD 06/29/2024 Orders Only [facility] Oncology and Hematology - [address] [place] [address] Shiv Mosher MD Malignant neoplasm of ovary, unspecified laterality (CMS/HCC) 06/22/2024 Orders Only [facility] Oncology and Hematology - [address] [place] [address] Shiv Mosher MD Malignant neoplasm of ovary, unspecified laterality (CMS/HCC) 06/15/2024 Orders Only [facility] Oncology and Hematology - [address] [place] [address] Shiv Mosher MD Malignant neoplasm of ovary, unspecified laterality (CMS/HCC) 06/09/2024 Orders Only [facility] Oncology and Hematology - [address] [place] [id number] Shiv Mosher MD 06/08/2024 Orders Only [facility] Oncology and Hematology - [address] [place] [id number] Shiv Mosher MD Malignant neoplasm of ovary, unspecified laterality (CMS/HCC) 06/05/2024 Orders Only [facility] Oncology and Hematology - [address] [place] [id number] Shiv Mosher MD from Last 3 Months Immunizations Immunization Administration Dates Next Due ([place])(12 YR UP) COVID-19 VACCINE - EMERGENCY USE AUTHORIZATION, MRNA, [id number](PF) 30 MCG/0.3 ML IM SUSP 04/17/2021 Influenza Seasonal Unspecified Formulation IM Family History Medical History Relation Name Comments Stroke Father Augie Serrato Relation Name Status Comments Father Augie Serrato Mother Social History Tobacco Use Types Packs/Day Years Used Date Smoking Tobacco: Never Smokeless Tobacco: Never Tobacco Cessation:Counseling Given: Not Answered Alcohol Use Standard Drinks/Week Comments Never 0 (1 standard drink = 0.6 oz pur e alcohol) Comments No Sex and Gender Information Value Date Recorded Sex Assigned at Not on file Legal Sex Female 12:11 PM CDT Gender Identity Not on file Sexual Orientation Not on file Last Filed Vital Signs Vital Sign Reading Time Taken Comments Blood Pressure 167/76 08/27/2024 8:47 AM INSURANCE PROFESSIONAL Pulse 86 08/27/2024 8:44 AM INSURANCE PROFESSIONAL Temperature 35.5 C (95.9 F) 08/27/2024 8:44 AM INSURANCE PROFESSIONAL Respiratory Rate 15 08/27/2024 8:44 AM INSURANCE PROFESSIONAL Oxygen Saturation 98% 08/27/2024 8:44 AM INSURANCE PROFESSIONAL Inhaled Oxygen Concentration - - Weight 55.2 kg (121 lb 12.8 oz) 08/27/2024 8:44 AM INSURANCE PROFESSIONAL Height 157.5 cm (5' 2 ) 05/31/2022 3:03 PM INSURANCE PROFESSIONAL Body Mass Index 22.28 05/31/2022 3:03 PM INSURANCE PROFESSIONAL Plan of Treatment Upcoming Encounters Date Type Department Care Team (Late st Contact Info) Description 10/08/2024 8:30 AM CDT Office Visit [facility] Oncology and Hematology - [address] [facility] [address] [place] [address] Shiv Mosher MD [address] [facility] [address] [place] [address] Health Maintenance Due Date Last Done Comments DTAP/TDAP/TD VACCINES (1 - Tdap) 1959 PNEUMOCOCCAL VACCINE 50+ YEARS (1 of 2 - PCV) 08/07/18 61 ZOSTER VACCINE (1 of 2) 1960 OSTEOPOROSIS SCREENING 2006 RSV VACCINE (60+ or ) (1 - 1-dose 75+ series) 2016 COVID-19 Vaccine (2 - Pfizer risk series) 05/08/2021 04/17/2021 INFLUENZA VACCINE (#1) 2024 04/14/2021 COLORECTAL SCREENING Discontinued 07/25/2021 Colorectal Cancer Screening Discontinued FIT-DNA Q 3 years Discontinued FIT/FOBT Q 1 year Discontinued Flex Sig/CT Colonography Q 5 years Discontinued Medical Devices Implanted Type Area Public Administration Teacher Device Identifier Shelf Expiration Date Model / Serial / Lot Port Powerport Clearvue 8fr Mri [id number] - [id number] Implanted:Qty : 1 on 12/19/2021 by June Hunter MD at [facility] Port Right: Chest [employer] [id number] 12/21/2022 [id number] / / [id number] Pacemaker Procedures Procedure Name Priority Date/Time Associated Diagnosis Comments BASIC METABOLIC PANEL Routine 08/27/2024 2:13 PM INSURANCE PROFESSIONAL CHG CA 15 3 Routine 08/27/2024 11:38 AM INSURANCE PROFESSIONAL COMPREHENSIVE METABOLIC PANEL Routine 08/27/2024 8:40 AM INSURANCE PROFESSIONAL CANCER ANTIGEN 15-3 Routine 07/16/2024 3 :32 PM INSURANCE PROFESSIONAL BASIC METABOLIC PANEL Routine 07/16/2024 3:15 PM INSURANCE PROFESSIONAL COMPREHENSIVE METABOLIC PANEL Routine 07/16/2024 3:11 PM INSURANCE PROFESSIONAL COMPREHENSIVE METABOLIC PANEL Routine 07/16/2024 2:[address] CHEST ABDOMEN PELVIS W CONT Routine 07/09/2024 10:35 AM INSURANCE PROFESSIONAL BASIC METABOLIC PANEL Routine 06/25/2024 4:55 PM INSURANCE PROFESSIONAL COMPREHENSIVE METABOLIC PANEL Routine 06/25/2024 4:39 PM INSURANCE PROFESSIONAL CANCER ANTIGEN 125 Routine 06/05/2024 10 :44 AM INSURANCE PROFESSIONAL from Last 3 Months Results * BASIC METABOLIC PANEL (08/27/2024 2:13 PM INSURANCE PROFESSIONAL) Only the most recent of3 resultswithin the time period is included. Blood us Shiv Mosher MD CHEMISTRY ORDERABLES Final Resu lt * CHG CA 15 3 (08/27/2024 11:38 AM INSURANCE PROFESSIONAL) us Shiv Mosher MD CHG - LABORATORY Final Result * COMPREHENSIVE METABOLIC PANEL (08/27/2024 8:40 AM INSURANCE PROFESSIONAL) Only the most recent of4 resultswithin the time period is included. Blood Shiv Mosher MD CHEMISTRY ORDERABLES Final Resu lt * CANCER ANTIGEN 15-3 (07/16/2024 3:32 PM INSURANCE PROFESSIONAL) Blood Shiv Mosher MD CHEMISTRY ORDERABLES Final Resu lt * CT CHEST ABDOMEN PELVIS W CONT (07/09/2024 10:35 AM INSURANCE PROFESSIONAL) Anatomical Region Laterality Modality Chest Other Shiv Mosher MD CT ORDERABLES Final Result * CANCER ANTIGEN 125 (06/05/2024 10:44 AM INSURANCE PROFESSIONAL) Blood Shiv Mosher MD CHEMISTRY ORDERABLES Final Resu lt from Last [address] MEDICARE PART A AND B RX PRIME [employer]ERAPEUT[employer] Medicare Part D MEDICARE PART A AND B BCBS SUPP Advance Directives For more information, please contact: [phone] Documents on File Type Date Recorded Patient Precision Assembler Bench Expl anation Advance Directive POA 12/18/2021 9:35 AM Advance Directive POA 12/18/2021 7:11 AM A dvance Directive POA * Full Code (Latest Code Status on File) Date Activated Date Inactivated Comments 05/05/2022 12:53 AM 05/12/2022 12:41 PM * Full Code Date Activated Date Inactivated Comments 05/04/2022 12:57 PM 05/05/2022 12:53 AM * Full Code Date Activated Date Inactivated Comments 12/19/2021 2:16 PM 12/21/2021 6:45 PM * Full Code Date Activated Date Inactivated Comments 12/19/2021 11:43 AM 12/19/2021 2:16 PM * Full Code Date Activated Date Inactivated Comments 12/18/2021 8:32 AM 12/19/2021 11:42 AM
--- OUTSIDE RECORDS SUMMARY | 2024-09-03 12:13 | XMS_ITS | Encounter Summary ---
Author Organization [facility] Address [address] [place] [address] Care Team Providers Care Heel Emery Buffer Name Role Phone Unavailable Primary Care Provider Unavailabl e Encounter Details Date Type Department Care Team (Late Contact Info) Description 08/31/2024 Orders Only [facility] Oncology and [facility] [address] [place] [address] Shiv Mosher MD [facility] [employer] [address] [place] [address] Malignant neoplasm of ovary, unspecified laterality (CMS/HCC) Social History Tobacco Use Types Packs/Day Years Used Date Smoking Tobacco: Never Smokeless Tobacco: Never Alcohol Use Standard Drinks/Week Comments Never 0 (1 standard drink = 0.6 oz pur e alcohol) Comments No Sex and Gender Information Value Date Recorded Sex Assigned at Not on file Legal Sex Female 12:11 PM CDT Gender Identity Not on file Sexual Orientation Not on file documented as of this encounter Plan of Treatment Upcoming Encounters Date Type Department Care Team (Late Contact Info) Description 10/08/2024 8:30 AM CDT Office Visit [facility] Oncology [facility] Hematology [facility] [address] [place] [address] Shiv Mosher MD [address] [place] [address] documented as of this encounter Procedures Procedure Name Priority Date/Time Associated Diagnosis Comments CHG CA 15 3 Routine 08/27/2024 11:38 AM TITLE DEPARTMENT MANAGER documented in this encounter Results * CHG CA 15 3 (08/27/2024 11:38 AM TITLE DEPARTMENT MANAGER) Shiv Mosher MD CHG - LABORATORY Final Result documented in this encounter Visit Diagnoses Diagnosis Malignant neoplasm of ovary, unspecified laterality (CMS/HCC) documented in this encounter
--- OUTSIDE RECORDS SUMMARY | 2024-09-03 12:13 | XMS_ITS | Clinical Summary ---
Author Organization [facility] Address [address] [place] [address] Care Team Providers Care Charity Fundraiser Name Role Phone Unavailable Primary Care Provider Unavailabl e Social History Tobacco Use Types Packs/Day Years Used Date Smoking Tobacco: Never Assessed Comments Unknown Sex and Gender Information Value Date Recorded Sex Assigned at Not on file Legal Sex Female 7:42 PM CDT Gender Identity Not on file Sexual Orientation Not on file Plan of Treatment Health Maintenance Due Date Last Done Comments DTaP, Tdap and Td Vaccines ( 1 - Tdap) 1960 Zoster Vaccines (1 of 2) 1991 Dexa Scan (General) 2006 Pneumococcal Vaccine: 65+ Ye ars (1 of 1 - PCV) 2006 RSV Immunization or 60+ Years (1 - 1-dose 75+ series) 2016 COVID-19 Vaccine ( - 2023-2 5 season) 2024 Influenza Adult (#1) 2024 Meningococcal B Vaccine Aged Out No l onger eligible based on patient's age to complete this topic Meningococcal Vaccine Aged Out No ramon chance eligible based on patient's age to complete this topic RSV Immunizations Under 20 Months Aged Out No longer eligible based on patient's age to complete this topic
--- OUTSIDE RECORDS SUMMARY | 2024-09-03 12:13 | XMS_ITS | Referral Summary ---
Author Organization [facility] [address] Address [address] [place] [address] Care Team Providers Care Coal Hauler Name Role Phone Apollo Norwood MD Primary Care Provider [phone] Allergies No known active allergies Medications hyoscyamine ER (LEVBID) 0.375 mg 12 hr tablet TK 1 T PO D 0 Active potassium chloride ER 10 mEq CR tablet TK 1 T PO 3 TIMES A WK 0 Active hydroCHLOROthia zide (HYDRODIURIL) 12.5 mg tablet TK 1 T PO THREE TIMES WEEKLY WITH POTASSIUM 0 Active pravastatin (PRAVACHOL) 40 mg tablet TK 1 T PO HS 0 Active aspirin 81 mg enteric coated tablet Take 81 mg by mouth daily Active loperamide (IMODIUM A-D) 2 mg tablet Take 2 mg by mouth 4 (four) times a day as needed for diarrhea Active polycarbophil (FIBERCON) 625 mg tablet Take 625 mg by mouth daily Active acetaminophen (TYLENOL) 500 mg tablet Take 500 mg by mouth every 6 (six) hours as needed for pain Active Active Problems Problem Noted Date Diagnosed Date Cardiac pacemaker in situ 02/04/2020 Overview (02/04/2020): Biotronik Dual Pacemaker. Dx; Second Degree AVB. DOI 01/25/2020-Glory. Patient follows with Dr Varghese. Shortness of breath 02/04/2020 Visit for wound check 02/02/2020 Second degree AV block 01/14/2020 Social History Tobacco Use Types Packs/Day Years Used Date Smoking Tobacco: Never Smokeless Tobacco: Never Alcohol Use Standard Drinks/Week Comments Never 0 (1 standard drink = 0.6 oz pur e alcohol) AUDIT-C Answer Date Recorded Q1: How often do you have a drink containing alc ohol? Never 01/14/2020 Average Number of Drinks Not on file 020 Frequency of Binge Drinking Not on file 12/23 Personal Safety Answer Date Recorded Getting School Help Needed Not on file 09/07 Comments Unknown Sex and Gender Information Value Date Recorded Sex Assigned at Not on file Legal Sex Female 11:33 AM CDT Gender Identity Female 01/13/2020 1:30 PM CDT Sexual Orientation Straight 01/13/2020 1: 30 PM CDT Last Filed Vital Signs Vital Sign Reading Time Taken Comments Blood Pressure 160/80 02/04/2020 1:44 PM CDT Pulse 93 02/04/2020 1:44 PM CDT Temperature - - Respiratory Rate - - Oxygen Saturation 93% 02/04/2020 1:44 PM CDT Inhaled Oxygen Concentration - - Weight 62.6 kg (138 lb) 02/04/2020 1:44 PM CDT Height 157.5 cm (5' 2 ) 02/04/2020 1:44 PM CDT Body Mass Index 25.24 02/04/2020 1:44 PM CDT Plan of Treatment Not on file [place] [address] MEDICARE [facility] [place] [address] Care Teams Coal Hauler Relationship Specialty Start Date End Date Apollo Norwood MD [address] [place] [phone] PCP - General Internal Medicine 01/12/20
--- OUTSIDE RECORDS SUMMARY | 2024-09-03 12:13 | XMS_ITS | Clinical Summary ---
Author Organization [facility] [address] Address [address] [address] Care Team Providers Care Screen Machine Operator Name Role Phone Apollo Norwood MD Primary Care Provider [phone] Allergies No known active allergies Medications hyoscyamine [...] check 02/02/2020 Second degree AV block 01/14/2020 Family History Medical History Relation Name Comments Stroke Father Relation Name Status Comments Father (Age 89) Mother (Age 86) Sister Alive Social History Tobacco Use Types Packs/Day Years [...] Orientation Straight 01/13/2020 1: 30 PM CDT Obstetrics History Last Filed Vital Signs Vital Sign Reading [...] of Treatment Not [place] [address] MEDICARE [facility] [place] [address] Care Teams Screen Machine Operator Relationship Specialty Start Date End Date Apollo Norwood MD [address] [place] [id number] PCP - General Internal Medicine 01/12/20
== END 2024-09-03 10:32 | disposition home or self-care (01) ==
LOC: ANHLAB 10:32
PROVIDERS: PCP Physician Assistant Medical; Visit Provider Internal Medicine Cardiovascular Disease
DX: I10 Essential (primary) hypertension (principal)
CPT/HCPCS: 36415; 80048

== ENCOUNTER 2024-09-09 13:51 | Inpatient (IN) | payer MEDICARE, SELFPAY ==
[2024-09-09] VITALS (9 sets, daily range): BP systolic 170–200; BP diastolic 70–136; PULSE 66–76; RESP 14–22; TEMP 36.5–36.6; O2SAT 92–100; BMI 22.4
--- NOTE | ~2024-09-09 | US_ITS ---
EXAMINATION: US thoracentesis DATE: 09/11/2024 15:34 INDICATION: Left pleural effusion TECHNIQUE: The procedure and its risks and benefits were discussed with the patient. Potential risks discussed included bleeding, infection, and pneumothorax. The patient understood the risks and agreed to proceed. The skin was prepped and draped in sterile fashion. 1% lidocaine was used for local anes thesia. Under ultrasound guidance, a 5 Fr catheter with trochar was advanced into the left pleural ef fusion. Fluid was aspirated. The catheter was removed, and a dressing was applied. There were no imme diate complications. FINDINGS: Ultrasound images demonstrate a small left pleural effusion and the catheter within the fluid. IMPRESSION: 1. Successful ultrasound-guided thoracentesis yielding 500 mL of yandy-colored fluid. Reviewed, dictated and finalized at location A.
--- NOTE | ~2024-09-09 | XR_ITS ---
CHEST RADIOGRAPH CLINICAL HISTORY: Shortness of breath . COMPARISON: 09/11/2024 TECHNIQUE: Single portable view of the chest. FINDINGS The left mid lung is partially obscured due to pacemaker generator. Wires project over the right atrium and right ventricle. Right subclavian central venous port catheter identified with its tip projecting over the right atriu m. The remainder of the cardiomediastinal silhouette is otherwise unremarkable. Blunting of the left costophrenic sulcus is redemonstrated consistent with a small left-sided pleural effusion. A small right-sided pleural effusion is also suspected. Platelike atelectasis within the left mid to lower lung field, unchanged from prior. Increased interstitial markings are identified bilaterally, findings suggesting mild pulmonary vascul ar congestion. The remainder of the lungs are clear. IMPRESSION: Mild pulmonary vascular congestion with small bilateral pleural effusions, left greater than right. Reviewed, dictated and finalized at location A.
--- NOTE | ~2024-09-09 | CT_ITS ---
EXAMINATION: CTA chest PE protocol DATE: 09/09/2024 20:14 CDT INDICATION: Shortness of breath with elevated BNP TECHNIQUE: Computed tomographic angiography (CTA) of the chest was performed with 100 mL Omnipaque-35 0 intravenous contrast. The dose-length product was 134.76 mGy-cm. Maximum intensity projection 3D-re constructions of the aorta and other arteries were constructed by the technologist on a separate work station. COMPARISON: 07/09/2024 and dating back to 11/07/2023. FINDINGS/OBSERVATIONS: PULMONARY ARTERIES: No filling defect is identified within the main or proximal pulmonary artery. The main pulmonary artery is not enlarged. THORACIC AORTA: No aneurysmal dilatation or dissection is present. The great vessels are intact LUNGS: Large bilateral pleural effusions, left greater than right. Patchy groundglass opacification of the bilateral pulmonary parenchymal consistent with significant p ulmonary edema. MEDIASTINUM: No morphologically suspicious or pathologically enlarged lymph nodes are identified with in the mediastinum or bilateral axilla. BONES OF THE CHEST: No acute fracture. No significant degenerative disease. No lytic or blastic lesions. HEART: The heart is enlarged without pericardial effusion. Within the upper abdomen: Punctate calcifications identified within the splenic parenchyma, suggesting prior granulomatous dise ase. The gallbladder is distended. IMPRESSION: No pulmonary embolus. No thoracic aortic dissection. Large bilateral pleural effusions, left greater than right. Additional findings suggesting congestive failure. Reviewed, dictated and finalized at location A.
--- NOTE | ~2024-09-09 | XR_ITS ---
CHEST RADIOGRAPH CLINICAL HISTORY: Acute SOB . COMPARISON: 09/09/2024 TECHNIQUE: Single portable view of the chest. FINDINGS The left mid lung is partially obscured due to pacemaker generator. Wires project over the right atrium and right ventricle. Right sided power port catheter is identified projecting over the right anterior chest wall with its tip projecting over the proximal right atrium. The remainder of the cardiomediastinal silhouette is partially obscured. Increased interstitial markings are identified bilaterally, findings suggesting moderate pulmonary va scular congestion, unchanged from previous examination. Blunting of the left costophrenic sulcus is identified with hazy opacification of the right costophre fahad sulcus suggesting small bilateral pleural effusions (left greater than right). Bibasilar alveolar infiltrates are also noted, an interval change from prior. IMPRESSION: Redemonstration of moderate pulmonary vascular congestion with bilateral pleural effusions and bibasi lar infiltrates. Reviewed, dictated and finalized at location A. IMPRESSION: Redemonstration of moderate pulmonary vascular congestion with bilateral pleura l effusions and bibasilar infiltrates.
--- NOTE | ~2024-09-09 | XR_ITS ---
CHEST RADIOGRAPH, PA AND LATERAL CLINICAL HISTORY: SHORT OF BREATH, LOWER EXT SWELLING . COMPARISON: 09/14/2023 TECHNIQUE: PA and lateral views of the chest. FINDINGS The left mid lung is partially obscured due to pacemaker generator. Wires project over the right atrium and right ventricle. Right sided power port catheter placement with its tip projecting over the proximal right atrium. The remainder of the cardiomediastinal silhouette is partially obscured. Increased interstitial markings are identified bilaterally, findings suggesting moderate pulmonary va scular congestion. Blunting of the left costophrenic sulcus is identified with hazy opacification of the right suggestin g small bilateral pleural effusions. Bibasilar alveolar infiltrates is also noted, an interval change from prior. IMPRESSION: Moderate pulmonary vascular congestion with bilateral pleural effusions and bibasilar infiltrates. Reviewed, dictated and finalized at location A. IMPRESSION: Moderate pulmonary vascular congestion with bilateral pleural effusions and bib asilar infiltrates.
--- NOTE | ~2024-09-09 | XR_ITS ---
[id number] Ordering provider: Brooks Gonzalez MD History: 84 years Female with . POST THORA . Comparison: December 04, 2021 FINDINGS: MEDIASTINUM: The cardiac silhouette is slightly enlarged. Left bipolar pacemaker. Right Port-A-Cath w ith the tip overlying the right atrium. LUNGS: No effusions or pneumothorax. Opacification in the left lung base suggestive of atelectasis ve rsus pneumonia. OTHER: No free air under the diaphragm. IMPRESSION: Left basilar atelectasis versus pneumonia. Reviewed, dictated and finalized at location A.
--- NOTE | 2024-09-09 15:13 | ECG_ITS ---
Test Date: 2024-09-09 15:51:48 Measurements Intervals [place] Rate: 67 P: 184 HI: 208 QRS: -68 QRSD: 146 T: 79 QT: 443 QTc: 470 Interpretive Statements ELECTRONIC ATRIAL PACEMAKER ELECTRONIC VENTRICULAR PACEMAKER ATYPICAL ECG Electronically Signed On 09-09-2024 15:56:52 CDT by Lino Zhang M.D.
--- OUTSIDE RECORDS SUMMARY | 2024-09-09 15:27 | XMS_ITS | Encounter Summary ---
Author Organization [facility] [employer] Marti [facility] Address [address] [place] [address] Care Team Providers Care Colliery Clerk Name Role Phone Unavailable Primary Care Provider Unavailabl e Encounter Details Date Type Department Care Team (Late Contact Info) Description 09/07/2024 Orders Only [facility] Oncology and [facility] [place] [place] [address] [place] [address] Shiv Mosher MD [address] [place], [place] [email or web address] [address] [place] [address] Malignant neoplasm of ovary, unspecified laterality [...] Description 10/08/2024 8:30 AM CDT Office Visit [facility] Oncology [facility] Hematology [facility] [address] [place] [address] Shiv Mosher MD [address] [place] [address] documented as of this encounter Visit Diagnoses Diagnosis Malignant neoplasm of ovary, unspecified laterality (CMS/HCC) documented in this encounter
--- OUTSIDE RECORDS SUMMARY | 2024-09-09 15:27 | XMS_ITS | Clinical Summary ---
Author Organization [facility] Address [address] [place] [address] Care Team Providers Care Fashion Styling Intern Name Role Phone Unavailable Primary Care Provider [...]
--- OUTSIDE RECORDS SUMMARY | 2024-09-09 15:27 | XMS_ITS | Clinical Summary ---
Author Organization [facility] [address] Address [address] [place] [address] Care Team Providers Care Mixing And Dispensing Supervisor Name Role Phone Apollo Norwood MD Primary Care Provider [phone] Allergies No known active allergies Medications hyoscyamine [...] of Treatment Not [place] [address] [address] [facility] [place] [address] Care Teams Mixing And Dispensing Supervisor Relationship Specialty Start Date End Date Apollo Norwood MD [address] [place] [address] PCP - General Internal Medicine 01/12/20
--- OUTSIDE RECORDS SUMMARY | 2024-09-09 15:27 | XMS_ITS | Clinical Summary ---
Author Organization [facility] Address [address] [place] [address] Phone Care Team Providers Care Cutting Room Supervisor Name Role Phone Unavailable Primary Care Provider Unavailabl e Allergies No known active allergies Medications pravastatin (PRAVACHOL) 40 mg tablet Take 40 mg by mouth daily with supper. Active losartan (COZAAR) 50 mg tablet Take 100 mg by mouth daily. Active Fish Oil-[place]-3 Fatty Acids 300-500 mg Capsule Take by [...] daily. 30 Tablet 1 05/12/2022 10:07 AM SLIME PLANT OPERATOR 2 Active Additional Information Patient taking differently: [...] Encounters Date Type Department Care Team Description 09/07/2024 Orders Only [facility] Oncology and Hematology - Ariel [address] Shiv Mosher MD Malignant neoplasm of ovary, unspecified laterality (CMS/HCC) 08/31/2024 Orders Only [facility] Oncology and Hematology - Ariel [address] [place] [address] Shiv Mosher MD Malignant neoplasm of ovary, unspecified laterality (CMS/HCC) 08/29/2024 External Device Data STL ABSTRACTION Provider, Abstract 08/28/2024 External Device Data STL ABSTRACTION Provider, Abstract 08/28/2024 Orders Only [facility] Oncology and Hematology - Ariel [address] [place] [address] Shiv Mosher MD 08/27/2024 8:30 AM SLIME PLANT OPERATOR Office Visit [facility] Oncology and Hematology - Ariel [address] [place] [address] Shiv Mosher MD Malignant neoplasm of ovary, unspecified laterality (CMS/HCC) (Primary Dx) 08/27/2024 Orders Only [facility] Oncology and Hematology - Ariel [address] [place] [address] Shiv Mosher MD 08/26/2024 External Device Data STL ABSTRACTION Provider, Abstract 08/24/2024 Orders Only [facility] Oncology and Hematology - Ariel [address] [place] [address] Shiv Mosher MD Malignant neoplasm of ovary, unspecified laterality (CMS/HCC) 08/17/2024 Orders Only [facility] Oncology and Hematology - Ariel [address] [place] [address] Shiv Mosher MD Malignant neoplasm of ovary, unspecified laterality (CMS/HCC) 08/10/2024 Orders Only [facility] Oncology and Hematology - Ariel Andrew [address] [place] [address] Shiv Mosher MD Malignant neoplasm of ovary, unspecified laterality (CMS/HCC) 08/06/2024 Orders Only [facility] Oncology and Hematology - Ariel [address] [place] [address] Shiv Mosher MD Malignant neoplasm of ovary, unspecified laterality (CMS/HCC) (Primary Dx) 08/03/2024 Orders Only [facility] Oncology and Hematology - Ariel Andrew [address] [place] [id number] Shiv Mosher MD Malignant neoplasm of ovary, unspecified laterality (CMS/HCC) 07/27/2024 Orders Only [facility] Oncology and Hematology - Ariel [address] [place] [id number] Shiv Mosher MD Malignant neoplasm of ovary, unspecified laterality (CMS/HCC) 07/20/2024 Orders Only [facility] Oncology and Hematology - Ariel [address] [place] [id number] Shiv Mosher MD Malignant neoplasm of ovary, unspecified laterality (CMS/HCC) 07/16/2024 8:45 AM SLIME PLANT OPERATOR Office Visit [facility] Oncology and Hematology - Ariel [address] [place] [id number] Shiv Mosher MD Malignant neoplasm of ovary, unspecified laterality (CMS/HCC) (Primary Dx) 07/13/2024 Orders Only [facility] Oncology and Hematology - Ariel [address] Shiv Mosher MD Malignant neoplasm of ovary, unspecified laterality (CMS/HCC) 07/09/2024 Orders Only [facility] Oncology and Hematology - Ariel [address] [place] [address] Shiv Mosher MD 07/06/2024 Orders Only [facility] Oncology and Hematology [facility] [address] Shiv Mosher MD Malignant neoplasm of ovary, unspecified laterality (CMS/HCC) 07/01/2024 Orders Only [facility] Oncology and Hematology [place] [address] [address] Shiv Mosher MD 06/29/2024 Orders Only [facility] Oncology and Hematology [facility] Elaine [address] [place] [address] Shiv Mosher MD Malignant neoplasm of ovary, unspecified laterality (CMS/HCC) 06/22/2024 Orders Only [facility] Oncology and Hematology [place] [address] [address] [place] [address] Shiv Mosher MD Malignant neoplasm of ovary, unspecified laterality (CMS/HCC) 06/15/2024 Orders Only [facility] Oncology and Hematology [place] [address] [address] Shiv Mosher MD Malignant neoplasm of ovary, unspecified laterality (CMS/HCC) from Last 3 Months Immunizations Immunization Administration Dates Next Due ([employer]oku)(12 YR UP) COVID-19 VACCINE - EMERGENCY USE AUTHORIZATION, MRNA, [id number](PF) 30 MCG/0.3 ML IM SUSP 04/17/2021 Influenza [...] Comments Blood Pressure 167/76 08/27/2024 8:47 AM SLIME PLANT OPERATOR Pulse 86 08/27/2024 8:44 AM SLIME PLANT OPERATOR Temperature 35.5 C (95.9 F) 08/27/2024 8:44 AM SLIME PLANT OPERATOR Respiratory Rate 15 08/27/2024 8:44 AM SLIME PLANT OPERATOR Oxygen Saturation 98% 08/27/2024 8:44 AM SLIME PLANT OPERATOR Inhaled Oxygen Concentration - - Weight 55.2 kg (121 lb 12.8 oz) 08/27/2024 8:44 AM SLIME PLANT OPERATOR Height 157.5 cm (5' 2 ) 05/31/2022 3:03 PM SLIME PLANT OPERATOR Body Mass Index 22.28 05/31/2022 3:03 PM SLIME PLANT OPERATOR Plan of Treatment Upcoming Encounters Date Type Department Care Team (Late st Contact Info) Description 10/08/2024 8:30 AM CDT Office Visit [facility] Oncology and Hematology - Ariel [address] [facility] [address] [place] [address] Shiv Mosher MD [address] [facility] [address] [place] [address] Health Maintenance Due Date Last [...] years Discontinued Medical Devices Implanted Type Area Regulatory Leader Device Identifier Shelf Expiration Date Model / Serial / Lot Port Powerport Clearvue 8fr Mri [id number] - [id number] Implanted:Qty : 1 on 12/19/2021 by June Hunter MD at [facility] Port Right: Chest [employer] [id number] 12/21/2022 [id number] / / [id number] Pacemaker Procedures Procedure Name Priority Date/Time Associated Diagnosis Comments BASIC METABOLIC PANEL Routine 08/27/2024 2:13 PM SLIME PLANT OPERATOR CHG CA 15 3 Routine 08/27/2024 11:38 AM SLIME PLANT OPERATOR COMPREHENSIVE METABOLIC PANEL Routine 08/27/2024 8:40 AM SLIME PLANT OPERATOR CANCER ANTIGEN 15-3 Routine 07/16/2024 3 :32 PM SLIME PLANT OPERATOR BASIC METABOLIC PANEL Routine 07/16/2024 3:15 PM SLIME PLANT OPERATOR COMPREHENSIVE METABOLIC PANEL Routine 07/16/2024 3:11 PM SLIME PLANT OPERATOR COMPREHENSIVE METABOLIC PANEL Routine 07/16/2024 2:42 [address] CHEST ABDOMEN PELVIS W CONT Routine 07/09/2024 10:35 AM SLIME PLANT OPERATOR BASIC METABOLIC PANEL Routine 06/25/2024 4:55 PM SLIME PLANT OPERATOR COMPREHENSIVE METABOLIC PANEL Routine 06/25/2024 4:39 PM SLIME PLANT OPERATOR from Last 3 Months Results * BASIC METABOLIC PANEL (08/27/2024 2:13 PM SLIME PLANT OPERATOR) Only the most recent of3 resultswithin the time period is included. Blood us Shiv Mosher MD CHEMISTRY ORDERABLES Final Resu lt * CHG CA 15 3 (08/27/2024 11:38 AM SLIME PLANT OPERATOR) us Shiv Mosher MD CHG - LABORATORY Final Result * COMPREHENSIVE METABOLIC PANEL (08/27/2024 8:40 AM SLIME PLANT OPERATOR) Only the most recent of4 resultswithin the time period is included. Blood us Shiv Mosher MD CHEMISTRY ORDERABLES Final Resu lt * CANCER ANTIGEN 15-3 (07/16/2024 3:32 PM SLIME PLANT OPERATOR) Blood us Shiv Mosher MD CHEMISTRY ORDERABLES Final Resu lt * CT CHEST ABDOMEN PELVIS W CONT (07/09/2024 10:35 AM SLIME PLANT OPERATOR) Anatomical Region Laterality Modality Chest Computed Tomogra phy Shiv Mosher MD CT ORDERABLES Final Result from Last 3 Months Insurance BCBS SUPP MEDICARE PART A AND B RX [employer] [place] [address] MEDICARE PART A AND B BCBS SUPP Advance Directives For more information, please contact: [phone] Documents on File Type Date Recorded Patient Small Products I Assembler Expl 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
--- OUTSIDE RECORDS SUMMARY | 2024-09-09 15:27 | XMS_ITS | Referral Summary ---
Author Organization [facility] [address] Address [address] [place] [address] Care Team Providers Care Driver Manager Name Role Phone Apollo Norwood MD Primary Care Provider [phone] Allergies No known active allergies Medications hyoscyamine [...] of Treatment [place] [address] MEDICARE [facility] [address] Care Teams Driver Manager Relationship Specialty Start Date End Date Apollo Norwood MD [address] [place] [phone] PCP - General Internal Medicine 01/12/20
[2024-09-09 15:36] LABS: Basophils Absolute Auto 0.1 K/mm3 (0.0-0.1); Basophils Percent Auto 0.7 % (0.2-1.2); Eosinophils Absolute Auto 0.2 K/mm3 (0-0.3); Eosinophils Percent Auto 2.4 % (0-4.4); Hematocrit 30.6 % (37.0-47.0); Hemoglobin 9.4 g/dL (12.0-15.0); Immature Granulocyte Absolute 0.03 K/mm3 (0.00-0.031); Immature Granulocyte Percent A 0.3 % (0-0.5); Lymphocytes Percent Auto 6.9 % (18.3-44.2); Mean Corpuscular HGB Conc 30.7 g/dl (32-36); Mean Corpuscular Hemoglobin 29.9 pg (26-34); Mean Corpuscular Volume 97.5 fl (80-100); Mean Platelet Volume 8.5 fl (7.4-10.4); Monocytes Absolute Auto 0.6 K/mm3 (0.1-0.6); Monocytes Percent Auto 6.7 % (2.6-8.5); Neutrophils Absolute Auto 7.2 K/mm3 (1.3-6.7); Platelet Count Result 309 k/mm3 (150-375); Red Blood Count 3.14 M/mm3 (4.2-5.4); Red Cell Distribution Width 16.7 % (11.5-14.5); White Blood Count 8.7 K/mm3 (4.5-10.0)
[2024-09-09 15:47] LABS: INR 1.1; Prothrombin Time 14.1 Seconds (11.1-14.7)
[2024-09-09 15:48] LABS: Partial Thromboplastin Time 28.5 Seconds (22.3-36.8)
[2024-09-09 15:58] LABS: Alanine Aminotransferase 20 U/L (6-35); Albumin Level 3.2 g/dL (3.5-5.1); Alkaline Phosphatase 109 U/L (38-126); Anion Gap 11 mmol/L (4-12); Aspartate Amino Transferase 28 U/L (14-36); Bilirubin,Total 0.5 mg/dL (0.2-1.3); Blood Urea Nitrogen 44 mg/dL (7-17); Calcium 8.8 mg/dL (8.4-10.2); Carbon Dioxide 15 mmol/L (22-30); Chloride 114 mmol/L (98-107); Estimated CRCL calculation 20 ml/min; Estimated Glomerular Filt Rate 32; Glucose 119 mg/dL (65-110); Potassium 6.1 mmol/L (3.4-5.0); Sodium 140 mmol/L (137-145)
[2024-09-09 16:04] LABS: NT Pro B Type Natriuretic Pept 4680 pg/mL (19.9-100); Troponin I < 0.012 ng/mL (0.000-0.034)
[2024-09-09 16:36] LABS: Influenza A QL RT-PCR Negative (Negative); Influenza B QL RT-PCR Negative (Negative); RSV RNA, RT-PCR Negative (Negative); SARS-CoV-2 RNA PCR Negative (Negative)
[2024-09-09] MEDS: FUROSEMIDE INJ 40 MG/4 ML VIAL IV PUSH (17:32)
[2024-09-09] MEDS: CALCIUM GLUCONATE 1,000 MG/10 ML VIAL 1000 MG IV PUSH (17:35)
[2024-09-09] MEDS: DEXTROSE 50% 25 GM/50 ML SYRINGE IV PUSH (17:48)
[2024-09-09] MEDS: SODIUM BICARBONATE 8.4% 50 MEQ/50 ML SYRINGE IV PUSH (17:49)
[2024-09-09] MEDS: INSULIN HUMAN REGULAR (*BKC) 100 UNITS/ML 10 UNITS IV PUSH (17:51)
--- OUTSIDE RECORDS SUMMARY | 2024-09-09 18:00 | XMS_ITS | Encounter Summary ---
Author Organization [facility] [employer] Marti [facility] Address [address] [place] [address] Care Team Providers Care Vp Analytics Name Role Phone Unavailable Primary Care Provider Unavailabl e Encounter Details Date Type Department Care Team (Late Contact Info) Description 09/07/2024 Orders Only [facility] Oncology and [facility] [address] [place] [address] Shiv Mosher MD [address] [place], [place] [address]Vostu [address] [place] [address] Malignant neoplasm of ovary, unspecified laterality [...] Description 10/08/2024 8:30 AM CDT Office Visit [facility] Oncology [facility] Hematology [facility] Mart [address] [place] [address] Shiv Mosher MD [address] [place] [address] documented as of this encounter Visit Diagnoses Diagnosis Malignant neoplasm of ovary, unspecified laterality (CMS/HCC) documented in this encounter
--- OUTSIDE RECORDS SUMMARY | 2024-09-09 18:00 | XMS_ITS | Referral Summary ---
Author Organization [facility] [address] Address [address] [place] [address] Care Team Providers Care Manager Strategic Partnerships Name Role Phone Apollo Norwood MD Primary Care Provider [phone] Allergies No known active allergies Medications hyoscyamine [...] of Treatment Not [place] [address] MEDICARE [facility] [place] [address] Care Teams Manager Strategic Partnerships Relationship Specialty Start Date End Date Apollo Norwood MD [address] [place] [phone] PCP - General Internal Medicine 01/12/20
--- OUTSIDE RECORDS SUMMARY | 2024-09-09 18:00 | XMS_ITS | Clinical Summary ---
Author Organization [facility] Address [address] [place] [address] Phone Care Team Providers Care Dam Tender Assistant Name Role Phone Unavailable Primary Care Provider Unavailabl e Allergies No known active allergies Medications pravastatin (PRAVACHOL) 40 mg tablet Take 40 mg by mouth daily with supper. Active losartan (COZAAR) 50 mg tablet Take 100 mg by mouth daily. Active Fish Oil-[place]-3 Fatty Acids 300-500 mg Capsule Take by [...] daily. 30 Tablet 1 05/12/2022 10:[address] SUPERINTENDENT 2 Active Additional Information Patient taking differently: [...] Department Care Team Description 09/07/2024 Orders Only [facility] Oncology and Hematology - Ariel Andrew [address] Shiv Mosher MD Malignant neoplasm of ovary, unspecified laterality (CMS/HCC) 08/31/2024 Orders Only [facility] Oncology and Hematology - Ariel Andrew [address] [place] [address] Shiv Mosher MD Malignant neoplasm of ovary, unspecified laterality (CMS/HCC) 08/29/2024 External Device Data STL ABSTRACTION Provider, Abstract 08/28/2024 External Device Data STL ABSTRACTION Provider, Abstract 08/28/2024 Orders Only [facility] Oncology and Hematology - Ariel Andrew [address] [place] [address] Shiv Mosher MD 08/27/2024 8:[address] SUPERINTENDENT Office Visit [facility] Oncology and Hematology - Ariel Andrew [address] [place] [address] Shiv Mosher MD Malignant neoplasm of ovary, unspecified laterality (CMS/HCC) (Primary Dx) 08/27/2024 Orders Only [facility] Oncology and Hematology - Ariel Andrew [address] [place] [address] Shiv Mosher MD 08/26/2024 External Device Data STL ABSTRACTION Provider, Abstract 08/24/2024 Orders Only [facility] Oncology and Hematology - Ariel Andrew [address] [place] [address] Shiv Mosher MD Malignant neoplasm of ovary, unspecified laterality (CMS/HCC) 08/17/2024 Orders Only [facility] Oncology and Hematology - Ariel Andrew [address] [place] [address] Shiv Mosher MD Malignant neoplasm of ovary, unspecified laterality (CMS/HCC) 08/10/2024 Orders Only [facility] Oncology and Hematology - Ariel Andrew [address] [place] [address] Shiv Mosher MD Malignant neoplasm of ovary, unspecified laterality (CMS/HCC) 08/06/2024 Orders Only [facility] Oncology and Hematology - Ariel [address] [place] [address] Shiv Mosher MD Malignant neoplasm of ovary, unspecified laterality (CMS/HCC) (Primary Dx) 08/03/2024 Orders Only [facility] Oncology and Hematology - Ariel Andrew [address] [place] [id number] Shiv Mosher MD Malignant neoplasm of ovary, unspecified laterality (CMS/HCC) 07/27/2024 Orders Only [facility] Oncology and Hematology - Ariel [address] [place] [id number] Shiv Moshre MD Malignant neoplasm of ovary, unspecified laterality (CMS/HCC) 07/20/2024 Orders Only [facility] Oncology and Hematology - Ariel [address] [place] [id number] Shiv Mosher MD Malignant neoplasm of ovary, unspecified laterality (CMS/HCC) 07/16/2024 8:[address] SUPERINTENDENT Office Visit [facility] Oncology and Hematology - Ariel Andrew [address] [place] [id number] Shiv Mosher MD Malignant neoplasm of ovary, unspecified laterality (CMS/HCC) (Primary Dx) 07/13/2024 Orders Only [facility] Oncology and Hematology - Ariel Andrew [address] Shiv Mosher MD Malignant neoplasm of ovary, unspecified laterality (CMS/HCC) 07/09/2024 Orders Only [facility] Oncology and Hematology - Ariel [address] [place] [address] Shiv Mosher MD 07/06/2024 Orders Only [facility] Oncology and Hematology [facility] [address] Shiv Mosher MD Malignant neoplasm of ovary, unspecified laterality (CMS/HCC) 07/01/2024 Orders Only [facility] Oncology and Hematology [place] [address] [address] Shiv Mosher MD 06/29/2024 Orders Only [facility] Oncology and Hematology [facility] Elaine [address] [place] [address] Shiv Mosher MD Malignant neoplasm of ovary, unspecified laterality (CMS/HCC) 06/22/2024 Orders Only [facility] Oncology and Hematology [place] [address] [address] [place] [address] Shiv Mosher MD Malignant neoplasm of ovary, unspecified laterality (CMS/HCC) 06/15/2024 Orders Only [facility] Oncology and Hematology [place] [address] [address] Shiv Mosher MD Malignant neoplasm of ovary, unspecified laterality (CMS/HCC) from Last 3 Months Immunizations Immunization Administration Dates Next Due ([employer])(12 YR UP) COVID-19 VACCINE - EMERGENCY USE AUTHORIZATION, MRNA, [id number](PF) 30 MCG/0.3 ML IM SUSP 04/17/2021 Influenza Seasonal Unspecified Formulation IM Family History Medical History Relation Name Comments Stroke Father Augie Serrato Relation Name Status Comments Father Augie Serraot Mother Social History Tobacco Use Types Packs/Day [...] Comments Blood Pressure 167/76 08/27/2024 8:[address] SUPERINTENDENT Pulse 86 08/27/2024 8:[address] SUPERINTENDENT Temperature 35.5 C (95.9 F) 08/27/2024 8:[address] SUPERINTENDENT Respiratory Rate 15 08/27/2024 8:[address] SUPERINTENDENT Oxygen Saturation 98% 08/27/2024 8:[address] SUPERINTENDENT Inhaled Oxygen Concentration - - Weight 55.2 kg (121 lb 12.8 oz) 08/27/2024 8:[address] SUPERINTENDENT Height 157.5 cm (5' 2 ) 05/31/2022 3:[address] SUPERINTENDENT Body Mass Index 22.28 05/31/2022 3:[address] SUPERINTENDENT Plan of Treatment Upcoming Encounters Date Type Department Care Team (Late st Contact Info) Description 10/08/2024 8:30 AM CDT Office Visit [facility] Oncology and Hematology - Ariel [address] [facility] [address] [place] [address] Shiv Mosher MD [address] [facility] [address] [place] [address] Health Maintenance Due Date Last [...] years Discontinued Medical Devices Implanted Type Area Procedures Analyst Device Identifier Shelf Expiration Date Model / Serial / Lot Port Powerport Clearvue 8fr Mri [id number] - [id number] Implanted:Qty : 1 on 12/19/2021 by June Hunter MD at [facility] Port Right: Chest [employer] [id number] 12/21/2022 [id number] / / [id number] Pacemaker Procedures Procedure Name Priority Date/Time Associated Diagnosis Comments BASIC METABOLIC PANEL Routine 08/27/2024 2:[address] SUPERINTENDENT CHG CA 15 3 Routine 08/27/2024 11:[address] SUPERINTENDENT COMPREHENSIVE METABOLIC PANEL Routine 08/27/2024 8:[address] SUPERINTENDENT CANCER ANTIGEN 15-3 Routine 07/16/2024 3 :[address] SUPERINTENDENT BASIC METABOLIC PANEL Routine 07/16/2024 3:[address] SUPERINTENDENT COMPREHENSIVE METABOLIC PANEL Routine 07/16/2024 3:[address] SUPERINTENDENT COMPREHENSIVE METABOLIC PANEL Routine 07/16/2024 2:[address] CHEST ABDOMEN PELVIS W CONT Routine 07/09/2024 10:[address] SUPERINTENDENT BASIC METABOLIC PANEL Routine 06/25/2024 4:[address] SUPERINTENDENT COMPREHENSIVE METABOLIC PANEL Routine 06/25/2024 4:[address] SUPERINTENDENT from Last 3 Months Results * BASIC METABOLIC PANEL (08/27/2024 2:[address] SUPERINTENDENT) Only the most recent of3 resultswithin the time period is included. Blood us Shiv Mosher MD CHEMISTRY ORDERABLES Final Resu lt * CHG CA 15 3 (08/27/2024 11:[address] SUPERINTENDENT) us Shiv Mosher MD CHG - LABORATORY Final Result * COMPREHENSIVE METABOLIC PANEL (08/27/2024 8:[address] SUPERINTENDENT) Only the most recent of4 resultswithin the time period is included. Blood us Shiv Mosher MD CHEMISTRY ORDERABLES Final Resu lt * CANCER ANTIGEN 15-3 (07/16/2024 3:[address] SUPERINTENDENT) Blood us Shiv Mosher MD CHEMISTRY ORDERABLES Final Resu lt * CT CHEST ABDOMEN PELVIS W CONT (07/09/2024 10:[address] SUPERINTENDENT) Anatomical Region Laterality Modality Chest Computed Tomogra phy Shiv Mosher MD CT ORDERABLES Final Result from Last 3 Months Insurance BCBS SUPP MEDICARE PART A AND B RX [employer] [place] [address] MEDICARE PART A AND B BCBS SUPP Advance Directives For more information, please contact: [phone] Documents on File Type Date Recorded Patient Foreign Exchange Clerk Expl 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
--- OUTSIDE RECORDS SUMMARY | 2024-09-09 18:00 | XMS_ITS | Clinical Summary ---
Author Organization [facility] Address [address] [place] [address] Care Team Providers Care Transit Mixer Driver Name Role Phone Unavailable Primary Care Provider [...]
--- OUTSIDE RECORDS SUMMARY | 2024-09-09 18:00 | XMS_ITS | Clinical Summary ---
Author Organization [facility] [address] Address [address] [place] [address] Care Team Providers Care Credit Risk Analyst Name Role Phone Apollo Norwood MD Primary Care Provider [phone] Allergies No known active allergies Medications hyoscyamine [...] of Treatment Not on file [place] [address] MED[address] [facility] [address] Care Teams Credit Risk Analyst Relationship Specialty Start Date End Date Apollo Norwood MD [address] [place] [id number] PCP - General Internal Medicine 01/12/20
--- NOTE | 2024-09-09 18:14 | ED_ITS ---
HPI - SOB/Dyspnea General Chief Complaint: Shortness of Breath/Dyspnea Stated Complaint: i cant breath Time Seen by Provider: 09/09/24 17:07 Source: patient Mode of arrival: ambulatory Limitations: no limitations History of Present Illness HPI Narrative: This is a 84 year old female that presents to the ER for shortness of breath. Worsening over the last couple of days. Reports swelling in her legs. Reports a mild cough. Reports some associated chest pain. Denies fevers. Related Data Home Medications ?Medication ?Instructions ?Recorded ?Confirmed ?Last Taken ?Type omega 8-vwj-xkc-fish oil 300 1 cap PO DAILY 07/21/21 09/03/24 Unknown History mg-1,000 mg capsule (Fish Oil) psyllium husk 3.4 gram/5.4 gram 2 tsp PO DAILY PRN Constipation 09/25/21 09/03/24 Unknown History oral powder (Metamucil) ascorbate calcium (vitamin C) 500 500 mg PO DAILY 04/06/22 09/03/24 Unknown History mg tablet lidocaine-prilocaine 2.5 %-2.5 % 1 applic topical ONCE PRN 11/23/22 09/03/24 Unknown History topical cream port/catheter care magnesium 200 mg tablet 400 mg PO DAILY 11/23/22 09/03/24 Unknown History ondansetron 8 mg disintegrating 8 mg PO Q8H PRN Nausea 11/23/22 09/03/24 Unknown History tablet cholecalciferol (vitamin D3) 50 50 mcg PO DAILY 03/01/23 09/03/24 Unknown History mcg (2,000 unit) capsule pseudoephedrine-guaifenesin ER 60 1 tablet PO BID PRN sinus drainage 09/18/23 09/03/24 Unknown History mg-600 mg tablet,extend release 12hr (Mucinex D) carboxymethylcellulose 0.5 1 drp ophthalmic (eye) Q6H PRN Pain 10/17/23 09/03/24 Unknown History %-glycerin 0.9 % (PF) eye drops (Refresh Relieva PF) carboxymethylcellulose 1 1 drp EACH EYE HS 10/17/23 09/03/24 Unknown History %-glycerin 0.9 % eye gel drops (Refresh Optive) acetaminophen 650 mg 650 mg PO Q12H PRN pain 02/20/24 09/03/24 Unknown History tablet,extended release (Tylenol 8 Hour) aspirin 81 mg tablet,delayed 81 mg PO HS 08/06/24 09/03/24 Unknown History release (Adult Low Dose Aspirin) loperamide 2 mg capsule 2 mg PO QID PRN loose stool 08/06/24 09/03/24 Unknown History (Anti-Diarrheal (loperamide)) dexamethasone 4 mg tablet 4 mg PO .PRN 09/03/24 09/03/24 Unknown History Allergies Allergy/AdvReac Type Severity Reaction Status Date / Time No Known Allergies Allergy Verified 09/09/24 13:54 Review of Systems 2 Review of Systems: CONSTITUTIONAL: Denies fever CARDIOVASCULAR: Reports chest pain, and edema. RESPIRATORY: Reports cough and dyspnea. All systems reviewed & are unremarkable except as noted in HPI and below PMFSH Past Medical History Medical History (Updated 09/09/24 @ 21:30 by Ratna Balderrama PA-C) Anxiety Anemia Overactive bladder Low magnesium level Ovarian cancer History of pulmonary embolism Chronic GERD Osteoarthritis Hyperlipidemia Hx of cardiac pacemaker History of IBS Dyslipidemia Essential hypertension History of mitral valve prolapse Surgical History Surgical History (Updated 03/11/24 @ 14:31 by Gina Salvador PA-C) History of cataract surgery bilateral Mar and May 2024 History of hysterectomy for cancer History of hemorrhoidectomy History of colon resection Family History Family History Father Cerebrovascular accident, Onset Age: 88 Mother Family history of arthritis, Onset Age: 85 Social History Social History (Updated 07/23/24 @ 09:42 by Ralph Solano) Social History: the patient lives with her and he is the durable power trial attorney for healthcare. The patient has no children. 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 She is a lifelong nonsmoker. She does not use any alcohol marijuana or illicit drugs. 07/23/24 patient declined [facility] Code status full Smoking status: Never smoker Second hand tobacco smoke exposure: No Alcohol intake: never Substance use: never Substance use type: does not use Do You Feel Safe in your Home?: Yes Lack of Transportation: No Lack of Food: Never True Current Housing: I Have Housing Concerned About Future Housing: No Difficulty Paying Gas/Electric Bills: No Difficulty Paying for Meds: No Currently Unemployed: No Education: High School Diploma/GED Difficulty w/ Childcare or Family Care: No Living arrangements: with family Occupation/Education: retired Gender identity (if verbalized by the patient): Female Sexual Orientation (if Verbalized by the Patient): Straight or Heterosexual Spiritual care concerns: No Exam 2 Narrative: GENERAL: Well-appearing, well-nourished, and in no acute distress. HEAD: Normocephalic, atraumatic. EYES: EOMI. ENT: Nares clear, no rhinorrhea or epistaxis. Mucous membranes moist. Oropharynx without tonsillar hypertrophy exudate or other lesions. NECK: Supple. No adenopathy or masses CHEST: No respiratory distress. Rales in the bilateral lower lobes. No wheezes or rhonchi HEART: Regular rate and rhythm. No murmur heard. Normal peripheral pulses. EXTREMITIES: Normal range of motion. No edema. SKIN: Warm, dry, no rash. NEURO: No focal deficits. Alert and oriented x3. PSYCH: Normal mood and affect Course Course Emergency Course: patient updated on her workup and need for admission Consultations Consultation #1: Spoke with hospitalist about patient and workup who accepts admission Date: 09/09/24 Vital Signs Vital signs: Vital Signs Temperature 97.9 F 09/09/24 13:55 Pulse Rate 66 09/09/24 13:55 Respiratory Rate 22 H 09/09/24 13:55 Blood Pressure 170/70 H 09/09/24 13:55 Pulse Oximetry 93 09/09/24 13:55 Temperature 97.9 F 09/09/24 13:55 Pulse Rate 66 09/09/24 21:14 Respiratory Rate 14 09/09/24 21:14 Blood Pressure 186/70 H 09/09/24 21:14 Pulse Oximetry 92 09/09/24 21:14 Oxygen Delivery Room Air 09/09/24 15:27 MDM - SOB/Dyspnea MDM Narrative Medical decision making narrative: Patient presents the emergency department for worsening shortness of breath. She is afebrile and nontoxic appearing. Oxygen saturation is normal on room air. Rales noted at the lung bases. Cbc without leukocytosis. Metabolic panel with elevation in potassium 6.1. Patient given calcium, insulin, dextrose, sodium bicarb. Also given Lasix. BNP 4680. Influenza and COVID screens are negative. Chest x-ray shows pulmonary vascular congestion and bilateral pleural effusions. D-dimer elevated, CTA of the chest obtained. No PE. Once again shows congestive changes. patient updated on her workup and need for admission. Spoke with hospitalist about patient and workup who accepts admission Differential Diagnosis Differential diagnosis: Likely congestive heart failure, community acquired pneumonia and pulmonary embolism Lab Data Attestation: I reviewed the patient's lab results. 09/09/24 15:28 09/09/24 15:28 Labs: Lab Results 09/09/24 09/09/24 09/09/24 Range/Units 15:26 15:28 15:54 WBC 8.7 (4.5-10.0) K/mm3 RBC 3.14 L (4.2-5.4) M/mm3 Hgb 9.4 L (12.0-15.0) g/dL Hct 30.6 L (37.0-47.0) % MCV 97.5 (80-100) fl MCH 29.9 (26-34) pg MCHC 30.7 L (32-36) g/dl RDW 16.7 H (11.5-14.5) % Plt Count 309 (150-375) k/mm3 MPV 8.5 (7.4-10.4) fl Immature Gran % (Auto) 0.3 (0-0.5) % Neut % (Auto) 83.0 H (45.5-73.1) % Lymph % (Auto) 6.9 L (18.3-44.2) % [place] % (Auto) 6.7 (2.6-8.5) % Eos % (Auto) 2.4 (0-4.4) % Baso % (Auto) 0.7 (0.2-1.2) % Lymph # (Auto) 0.60 L (0.9-3.2) K/mm3 [place] # (Auto) 0.6 (0.1-0.6) K/mm3 Eos # (Auto) 0.2 (0-0.3) K/mm3 Baso # (Auto) 0.1 (0.0-0.1) K/mm3 Abs Immat Gran (auto) 0.03 (0.00-0.031) K/mm3 Absolute Neuts (auto) 7.2 H (1.3-6.7) K/mm3 Absolute Nucleated RBC 0.000 (0.0-0.012) K/mm3 Nucleated RBC % 0.0 (0.0-0.2) % PT 14.1 (11.1-14.7) Seconds INR 1.1 APTT 28.5 (22.3-36.8) Seconds D-Dimer 3.94 H (<0.48) ug/mL Sodium 140 (137-145) mmol/L Potassium 6.1 H* (3.4-5.0) mmol/L Chloride 114 H (98-107) mmol/L Carbon Dioxide 15 L (22-30) mmol/L Anion Gap 11 (4-12) mmol/L BUN 44 H (7-17) mg/dL Creatinine 1.56 H (0.7-1.0) mg/dL Estim Creat Clear Calc 20 ml/min Estimated GFR 32 L (59 - ) Glucose 119 H (65-110) mg/dL Calcium 8.8 (8.4-10.2) mg/dL Total Bilirubin 0.5 (0.2-1.3) mg/dL AST 28 (14-36) U/L ALT 20 (6-35) U/L Alkaline Phosphatase 109 (38-126) U/L Troponin I < 0.012 (0.000-0.034) ng/mL NT-Pro-B Natriuret Pep 4680 H (19.9-100) pg/mL Total Protein 6.0 L (6.3-8.2) g/dL Albumin 3.2 L (3.5-5.1) g/dL Influenza A (RT-PCR) Negative (Negative) Influenza B (RT-PCR) Negative (Negative) RSV (RT-PCR) Negative (Negative) SARS-CoV-2 RNA (RT-PCR) Negative (Negative) Imaging Data Radiologist's impression: ITS Impressions Chest X-Ray 09/09/24 15:44 IMPRESSION: Moderate pulmonary vascular congestion with bilateral pleural effusions and bibasilar infiltrates. ITS Impressions Chest X-Ray 09/09/24 15:44 IMPRESSION: Moderate pulmonary vascular congestion with bilateral pleural effusions and bibasilar infiltrates. TECHNIQUE: Computed tomographic angiography (CTA) of the chest was performed with 100 mL Omnipaque-350 intravenous contrast. The dose-length product was 134.76 mGy-cm. Maximum intensity projection 3D-reconstructions of the aorta and other arteries were constructed by the technologist on a separate workstation. COMPARISON: 07/09/2024 and dating back to 11/07/2023. FINDINGS/OBSERVATIONS: PULMONARY ARTERIES: No filling defect is identified within the main or proximal pulmonary artery. The main pulmonary artery is not enlarged. THORACIC AORTA: No aneurysmal dilatation or dissection is present. The great vessels are intact LUNGS: Large bilateral pleural effusions, left greater than right. Patchy groundglass opacification of the bilateral pulmonary parenchymal consistent with significant pulmonary edema. MEDIASTINUM: No morphologically suspicious or pathologically enlarged lymph nodes are identified within the mediastinum or bilateral axilla. BONES OF THE CHEST: No acute fracture. No significant degenerative disease. No lytic or blastic lesions. HEART: The heart is enlarged without pericardial effusion. Within the upper abdomen: Punctate calcifications identified within the splenic parenchyma, suggesting prior granulomatous disease. The gallbladder is distended. IMPRESSION: No pulmonary embolus. No thoracic aortic dissection. Large bilateral pleural effusions, left greater than right. Additional findings suggesting congestive failure. Critical Care Time Critical Care Time Critical Care Time: Yes Total Critical Care Time: 35 Discharge Plan Discharge Clinical Impression: CHF exacerbation, Hyperkalemia Patient Disposition: Still a Patient Condition: Serious
[2024-09-09 18:55] LABS: D Dimer 3.94 ug/mL (<0.48)
--- NOTE | 2024-09-09 20:00 | P.HP_ITS ---
H&P: HPI History of Present Illness Date/Time: 09/09/24 21:00 Chief Complaint: Shortness of breath. Narrative: This is an 84-year-old female with history of heart block status post permanent Biotronik pacemaker, hypertension, dyslipidemia, diastolic dysfunction, pulmonary embolism in June 2021 treated with anticoagulation for 6 months at which time she developed anemia due to bleeding gastric ulcer, chronic kidney disease stage 3, and metastatic ovarian cancer status post chemotherapy in June 2022 who presented to the emergency department via private vehicle from home with complaints of shortness of breath. The patient and her provides the following history. She reports a gradual onset of lower extremity edema and increasing shortness of breath on lesser and lesser exertion over the past 2 weeks or so. She complains of tightness throughout her chest which ?seems to be getting worse every day and a cough which is occasionally productive of yellow-colored phlegm. Her appetite has not been great and she reports early satiety for an unknown length of time. She denies fever, chills, sweats, syncope, near syncope, sore throat, pleuritic pain, palpitations, orthopnea, paroxysmal nocturnal dyspnea, epigastric and abdominal pain, bloating, belching, dysphagia, calf pain, hematochezia, and melena. In the ED: Vital signs on arrival include a temperature of 97.9?, blood pressure 170/70, pulse 66, respiratory 22, SpO2 93% on room air. Labs were significant for WBC count 8.7, hemoglobin 9.4, D-dimer 3.94, sodium 140, potassium 6.1, chloride 114, carbon dioxide 15, BUN 44, creatinine 1.56, troponin less than 0.012, proBNP 4680, total protein 6.0, albumin 3.2. Chest CTA showed large bilateral pleural effusions, left greater than right, additional findings suggestive of congestive heart failure, and was negative for pulmonary embolism. She was given furosemide 40 mg IV and calcium gluconate/insulin with dextrose/sodium bicarbonate for hyperkalemia and she is being admitted in this setting for further treatment and evaluation. Review of Systems Review of Systems: 12 systems were reviewed and are negativ e except for as per HPI. [facility] Past Medical History Medical History (Updated 09/09/24 @ 23:04 by Naomy Prabhakar PA-C) Diastolic dysfunction Bleeding ulcer Pulmonary emboli (06/2021) Anxiety Anemia Overactive bladder Ovarian cancer Status post surgery and chemotherapy, currently on maintenance treatment with Avastin per Dr. Mosher Chronic GERD Osteoarthritis Hyperlipidemia Dyslipidemia Surgical History Surgical History (Updated 09/09/24 @ 22:48 by Naomy Prabhakar PA-C) History of appendectomy History of permanent cardiac pacemaker placement Biotronik pacemaker for heart block History of cataract surgery (2023) History of hysterectomy for cancer (04/2022) Status post robotic complete tumor debulking, total hysterectomy, bilateral salpingo oophorectomy, bilateral ureterolysis, and total omentectomy History of hemorrhoidectomy History of colon resection Family History Family History Father Cerebrovascular accident, Onset Age: 88 Mother Family history of arthritis, Onset Age: 85 Social History Social History (Updated 09/09/24 @ 22:49 by Naomy Prabhakar PA-C) Social History: Surrogate medical decision maker: Darwin Wells, spouse. Code status: Full code. Smoking status: Never smoker Second hand tobacco smoke exposure: No Alcohol intake: never Substance use: never Substance use type: does not use Do You Feel Safe in your Home?: Yes Lack of Transportation: No Lack of Food: Never True Current Housing: I Have Housing Concerned About Future Housing: No Difficulty Paying Gas/Electric Bills: No Difficulty Paying for Meds: No Currently Unemployed: No Education: High School Diploma/GED Difficulty w/ Childcare or Family Care: No Living arrangements: with family Additional living arrangements comments: Lives with spouse in [place]. Occupation/Education: retired Spiritual care concerns: No Meds Home Medications and Allergies Home Medications ?Medication ?Instructions ?Recorded ?Confirmed ?Type omega 4-pnl-fag-fish oil 300 1 cap PO DAILY 07/21/21 09/03/24 History mg-1,000 mg capsule (Fish Oil) psyllium husk 3.4 gram/5.4 gram 2 tsp PO DAILY PRN Constipation 09/25/21 09/03/24 History oral powder (Metamucil) cyanocobalamin (vitamin B-12) 1,000 mcg PO DAILY #30 caps 12/05/21 09/03/24 Rx 1,000 mcg capsule ascorbate calcium (vitamin C) 500 500 mg PO DAILY 04/06/22 09/03/24 History mg tablet lidocaine-prilocaine 2.5 %-2.5 % 1 applic topical ONCE PRN 11/23/22 09/03/24 History topical cream port/catheter care magnesium 200 mg tablet 400 mg PO DAILY 11/23/22 09/03/24 History ondansetron 8 mg disintegrating 8 mg PO Q8H PRN Nausea 11/23/22 09/03/24 History tablet cholecalciferol (vitamin D3) 50 50 mcg PO DAILY 03/01/23 09/03/24 History mcg (2,000 unit) capsule albuterol sulfate 90 mcg/actuation 2 inh inhalation Q4H PRN shortness 09/18/23 09/03/24 Rx aerosol inhaler of breath or wheezing #6.7 grams alprazolam 0.25 mg tablet 0.25 mg PO TID PRN anxiety #90 tabs 09/18/23 09/03/24 Rx pseudoephedrine-guaifenesin ER 60 1 tablet PO BID PRN sinus drainage 09/18/23 09/03/24 History mg-600 mg tablet,extend release 12hr (Mucinex D) carboxymethylcellulose 0.5 1 drp ophthalmic (eye) Q6H PRN Pain 10/17/23 09/03/24 History %-glycerin 0.9 % (PF) eye drops (Refresh Relieva PF) carboxymethylcellulose 1 1 drp EACH EYE HS 10/17/23 09/03/24 History %-glycerin 0.9 % eye gel drops (Refresh Optive) acetaminophen 650 mg 650 mg PO Q12H PRN pain 02/20/24 09/03/24 History tablet,extended release (Tylenol 8 Hour) celecoxib 200 mg capsule (Celebrex) 200 mg PO DAILY #90 caps 05/11/24 09/03/24 Rx amlodipine 5 mg tablet 5 mg PO DAILY #90 tabs 06/03/24 09/03/24 Rx oxybutynin chloride 10 mg 10 mg PO DAILY #90 tabs 08/03/24 09/03/24 Rx tablet,extended release 24 hr pravastatin 40 mg tablet 40 mg PO QHS #90 tabs 08/05/24 09/03/24 Rx aspirin 81 mg tablet,delayed 81 mg PO HS 08/06/24 09/03/24 History release (Adult Low Dose Aspirin) loperamide 2 mg capsule 2 mg PO QID PRN loose stool 08/06/24 09/03/24 History (Anti-Diarrheal (loperamide)) pantoprazole 40 mg tablet,delayed 40 mg PO QHS #90 tabs 08/06/24 09/03/24 Rx release hydralazine 50 mg tablet 50 mg PO TID #60 tabs 08/18/24 09/03/24 Rx famotidine 20 mg tablet 20 mg PO DAILY #90 tabs 08/21/24 09/03/24 Rx carvedilol 12.5 mg tablet 12.5 mg PO Q12H #60 tabs 09/03/24 09/03/24 Rx dexamethasone 4 mg tablet 4 mg PO .PRN 09/03/24 09/03/24 History Allergies Allergy/AdvReac Type Severity Reaction Status Date / Time No Known Allergies Allergy Verified 09/09/24 13:54 Vital Signs Vital Signs - 24 hr 09/09/24 13:55 09/09/24 14:15 09/09/24 15:15 Temperature 97.9 F Pulse Rate 66 67 66 Respiratory Rate 22 H 20 22 H Blood Pressure 170/70 H 192/90 H 184/88 H Pulse Oximetry 93 93 93 Oxygen Delivery 09/09/24 15:27 09/09/24 16:00 09/09/24 18:00 Temperature Pulse Rate 66 73 Respiratory Rate 16 16 Blood Pressure 200/86 H 191/84 H Pulse Oximetry 96 97 100 Oxygen Delivery Room Air 09/09/24 18:30 Temperature Pulse Rate 76 Respiratory Rate 22 H Blood Pressure 190/88 H Pulse Oximetry 93 Oxygen Delivery Exam Narrative: General: Chronically ill-appearing elderly female in the semi-Romo position in bed in no acute distress. Weight: 56 kg. BMI: 22.6. HEENT: PERRL, EOMI. Sclera anicteric. Moist mucous membranes. Neck: Supple. Respiratory: Respirations are nonlabored and she is speaking in full sentences. Lung sounds are diminished bilaterally with scattered crackles. Cardiovascular: Regular rate and rhythm with S1-S2. Chest: No tenderness to palpation over the chest wall. Gastrointestinal: Abdomen is soft, nontender, and nondistended with positive bowel sounds. Skin: Warm and dry. No rash or lesions on limited exam. Extremities: No cyanosis or clubbing. Trace tirso ankle edema bilaterally. Negative Edis sign bilaterally. Neurological: Alert. Cranial nerves 2-12 are grossly intact. No gross focal deficits to casual conversation. Psychiatric: Pleasant and cooperative with appropriate mood and affect. H&P: Results Labs Labs: Short CBC 09/09/24 Range/Units 15:28 WBC 8.7 (4.5-10.0) K/mm3 Hgb 9.4 L (12.0-15.0) g/dL Hct 30.6 L (37.0-47.0) % Plt Count 309 (150-375) k/mm3 BMP 09/09/24 15:28 Sodium 140 Potassium 6.1 H* Chloride 114 H Carbon Dioxide 15 L BUN 44 H Creatinine 1.56 H Glucose 119 H Calcium 8.8 Cardiac Enzymes 09/09/24 Range/Units 15:28 Troponin I < 0.012 (0.000-0.034) ng/mL Liver Function 09/09/24 Range/Units 15:28 Total Bilirubin 0.5 (0.2-1.3) mg/dL AST 28 (14-36) U/L ALT 20 (6-35) U/L Alkaline Phosphatase 109 (38-126) U/L Albumin 3.2 L (3.5-5.1) g/dL Impressions Chest X-Ray 09/09/24 15:44 IMPRESSION: Moderate pulmonary vascular congestion with bilateral pleural effusions and bibasilar infiltrates. Chest CTA 09/09/24 20:14 IMPRESSION: No pulmonary embolus. No thoracic aortic dissection. Large bilateral pleural effusions, left greater than right. Additional findings suggesting congestive failure. Assessment and Plan Assessment and plan (1) CHF exacerbation: Qualifiers: Heart failure type: unspecified Qualified Code(s): I50.9 - Heart failure, unspecified Code(s): I50.9 - Heart failure, unspecified Status: Acute (2) Bilateral pleural effusion: Code(s): J90 - Pleural effusion, not elsewhere classified Status: Inactive (3) Diastolic dysfunction: Code(s): I51.89 - Other ill-defined heart diseases Status: Acute (4) Hyperkalemia: Code(s): E87.5 - Hyperkalemia Status: Acute (5) Normocytic anemia: Code(s): D64.9 - Anemia, unspecified Status: Acute (6) Poorly-controlled hypertension: Code(s): I10 - Essential (primary) hypertension Status: Acute (7) Metastatic adenocarcinoma: Code(s): C79.9 - Secondary malignant neoplasm of unspecified site Status: Acute (8) Chronic GERD: Code(s): K21.9 - Gastro-esophageal reflux disease without esophagitis Status: Chronic Plan The patient presented to the emergency department for evaluation of increasing shortness of breath over the last several weeks as detailed in HPI. Labs, imaging, EKG, and all reports were personally reviewed. Chest CTA was negative for pulmonary embolism but did demonstrate large bilateral pleural effusions and additional findings suggestive of congestive heart failure. She will be diuresed with close monitoring of volume status, renal function, and electrolytes. Initial potassium was 6.1 but has normalized with appropriate therapy. 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 Her blood pressures are poorly controlled at baseline according to the patient and her , always running at least 150 systolic but typically higher. She recently had some changes to her medications and blood pressures will continue to be monitored closely. Her hemoglobin has drifted down over the last 6 months or so and given her history of bleeding ulcer, will check stool for occult blood as well as iron studies. Other chronic conditions are stable. Her home medications will be reviewed and resumed as appropriate. Findings and treatment plan were discussed with the patient and her . Questions were solicited and answered to satisfaction. The patient's medical management will be taken over by the hospitalist team in a.m. Quality VTE Prophylaxis VTE prophylaxis: mechanical ordered If No VTE Prophylaxis Answer both mechanical and pharmacologic: Reason no pharmacologic proph: medical contraindication (may need thoracentesis) The patient has been admitted under observation status. Hospitalist [facility] Advance Care Plan I have confirmed that the patient's Advanced Care Plan is present, code status is documented, or surrogate decision maker is listed in patient medical record.: Yes Medication Reconciliation I have utilized all available resources to obtain, update and review the patients current medications (includes all prescriptions, OTC, herbals, cannabis, and nutritional supplements).: Yes
[2024-09-09 22:06] LABS: Anion Gap 10 mmol/L (4-12); Blood Urea Nitrogen 46 mg/dL (7-17); Calcium 9.1 mg/dL (8.4-10.2); Carbon Dioxide 18 mmol/L (22-30); Chloride 112 mmol/L (98-107); Estimated CRCL calculation 20 ml/min; Estimated Glomerular Filt Rate 32; Glucose 71 mg/dL (65-110); Potassium 4.9 mmol/L (3.4-5.0); Sodium 140 mmol/L (137-145)
[2024-09-09 22:17] LABS: Troponin I < 0.012 ng/mL (0.000-0.034)
[2024-09-09 22:26] LABS: Iron 149 ug/dL (37-170)
[2024-09-09 22:36] LABS: Percent Iron Saturation 62 % (20-50)
[2024-09-09 23:18] LABS: Folic Acid 10.8 ng/mL (2.76->20); Vitamin B12 > 1000.0 pg/mL (239-931)
--- NOTE | 2024-09-09 23:22 | ADMGEN ---
This patient, Ml Wells, was admitted to IMU Room 206-01. Patient/family oriented to hospital policies and general routines including ID bracelet, bed and alarms, visiting hours, pain management, procedures, bathroom and other care routines, personal items, smoking policy, room service/diet, and visiting hours. Information on how to activate the Rapid Response Team has been discussed. Patient/Family are encouraged to report perceived risks to care and to ask questions if they do not understand what they are told or what they should do.
[2024-09-10] VITALS (21 sets, daily range): BP systolic 152–204; BP diastolic 57–99; PULSE 63–79; RESP 14–19; TEMP 36.3–36.9; O2SAT 93–97
--- NOTE | 2024-09-10 | ECHO_ITS ---
Patient Info Name: Ml Wells Age: 84 years : 1940 Gender: Female Ht: 62 in Wt: 123 lbs BSA: 1.57 m2 HR: 67 bpm BP: 168 / 74 mmHg Technical Quality: Fair Exam Date: 09/10/2024 12:41 PM Exam Location: Echo Lab Patient Status: Inpatient Admit Date: 09/10/2024 Staff Ordering Physician: Naomy Prabhakar PA-C Front End Engineer: Comfort Kay RDCS Attending Provider: Caty Mathias MD Referring Physician: Aki MILLAN; Exam Type: CA echo doppler color flow Study Info Indications - Pleural effusion - CHF Complete two-dimensional, color flow and Doppler transthoracic echocardiogram is performed. Summary 1. Complete two-dimensional, color flow and Doppler transthoracic echocardiogram is performed. 2. Left ventricular chamber dimension is normal. 3. Left ventricular systolic function is normal, estimated at 60-65%. 4. The left ventricular diastolic function is grade I diastolic dysfunction. 5. E/e' 18 is elevated. 6. Linear artifact in right ventricle suggestive of catheter(s), pacemaker lead(s), or ICD lead(s). 7. Left atrial chamber dimension is severely enlarged. 8. Linear artifact in the right atrium suggestive of catheter(s), pacemaker lead(s), or ICD lead(s). 9. There is moderate aortic valve sclerosis. 10. There is mild aortic valve regurgitation. 11. The mitral valve has moderately calcified annulus. 12. There is mild to moderate mitral valve regurgitation. 13. There is trace tricuspid valve regurgitation. 14. Mild pulmonary hypertension, estimated pulmonary arterial systolic pressure is 45 mmHg. 15. There is trace pulmonic regurgitation. Left Ventricle E/e' 18 is elevated. Left ventricular chamber dimension is normal. Left ventricular systolic function is normal, estimated at 60-65%. The left ventricular diastolic function is grade I diastolic dysfunction. Right Ventricle Right ventricular systolic function is normal and with normal TAPSE 1.9 cm. Linear artifact in right ventricle suggestive of catheter(s), pacemaker lead(s), or ICD lead(s). Right ventricular chamber dimension is normal. Left Atria Left atrial chamber dimension is severely enlarged. Right Atria Linear artifact in the right atrium suggestive of catheter(s), pacemaker lead(s), or ICD lead(s). Right atrial chamber dimension is normal. Aortic Valve The aortic valve is trileaflet. There is moderate aortic valve sclerosis. There is no aortic valve stenosis. There is mild aortic valve regurgitation. Pulmonic Valve There is trace pulmonic regurgitation. Mitral Valve The mitral valve has moderately calcified annulus. There is no mitral valve stenosis. There is mild to moderate mitral valve regurgitation. Tricuspid Valve There is trace tricuspid valve regurgitation. Mild pulmonary hypertension, estimated pulmonary arterial systolic pressure is 45 mmHg. Pericardium/Pleural There is no pericardial effusion. Inferior Vena Cava Normal inferior vena cava with >50% collapse upon inspiration consistent with normal right atrial pressure, 5 mmHg. Aorta The aortic root size at the sinus of Valsalva is normal. Left Ventricular Outflow Tract Name Value Normal LVOT 2D LVOT Diameter 2.0 cm LVOT Doppler LVOT Peak Gradient 7 mmHg LVOT Mean Gradient 4 mmHg LVOT VTI 32 cm LVOT VTI/AV VTI Ratio 0.8 LVOT Stroke Volume 97 ml LVOT CO 6.2 l/min LVOT CI 4.0 l/min/m2 Pulmonic Valve Name Value Normal RVOT Doppler RVOT Peak Gradient 2 mmHg PV Doppler PV Peak Gradient 4 mmHg Mitral Valve Name Value Normal MV Doppler MV Decel [place] 370 cm/s2 MV PHT 85 ms MV Area (PHT) 2.6 cm2 4.0-5.0 MV Diastolic Function MV E Peak Velocity 108 cm/s MV A Peak Velocity 138 cm/s MV E/A 0.8 MV Decel Time 292 ms MV Annular TDI MV E/e' (Septal) 19.1 <=8.0 MV E/e' (Lateral) 18.4 <=8.0 MV E/e' (Average) 18.7 Tricuspid Valve Name Value Normal TV Regurgitation Doppler TR Peak Velocity 315 cm/s TR Peak Gradient 40 mmHg Estimated PAP/RSVP RA Pressure 5 mmHg <=5 PA Systolic Pressure 45 mmHg <36 RV Systolic Pressure 45 mmHg <36 Aortic Valve Name Value Normal AV Doppler AV Peak Velocity 188 cm/s AV Peak Gradient 14 mmHg AV Mean Gradient 7 mmHg AV VTI 41 cm AV Area (Cont Eq VTI) 2.4 cm2 >=3.0 AV Area (Cont Eq Bala) 2.2 cm2 AV Regurgitation 2D LVOT Area 3.1 cm2 Ventricles Name Value Normal LV Dimensions 2D/MM IVS Diastolic Thickness (2D) 1.0 cm 0.6-1.0 LVID Diastole (2D) 4.9 cm 3.8-5.2 LVIW Diastolic Thickness (2D) 1.0 cm 0.6-0.9 LVID Systole (2D) 2.9 cm 2.2-3.5 LVOT Diameter 2.0 cm LV Mass (2D Cubed) 164.64 g 67.00-162.00 LV Mass Index (2D Cubed) 105 g/m2 43-95 Relative Wall Thickness (2D) 0.39 LV Fractional Shortening/Ejection Fraction 2D/MM LV Fractional Shortening (2D) 39 % 27-45 LV EF (2D Teicholz) 70 % 54-74 LV Diastolic Volume (4C MOD) 82 ml LV EF (4C MOD) 56 % LV Diastolic Volume (2C MOD) 94 ml LV EF (2C MOD) 49 % LV Diastolic Volume (BP MOD) 92 ml 46-106 LV Diastolic Volume Index (BP MOD) 59 ml/m2 29-61 LV Systolic Volume (BP MOD) 44 ml 14-42 LV Systolic Volume Index (BP MOD) 28 ml/m2 8-24 LV EF (BP MOD) 52 % 54-74 LV Diastolic Length (4C) 6.8 cm LV Systolic Length (4C) 5.7 cm LV Stroke Volume (4C MOD) 46 ml Atria Name Value Normal LA Dimensions LA Volume (4C A-L) 72 ml LA Volume (BP A-L) 78 ml RA Dimensions RA Area (4C) 12.0 cm2 <=18.0 Report Signatures
[2024-09-10 04:45] LABS: Basophils Absolute Auto 0.1 K/mm3 (0.0-0.1); Basophils Percent Auto 0.9 % (0.2-1.2); Eosinophils Absolute Auto 0.1 K/mm3 (0-0.3); Eosinophils Percent Auto 1.9 % (0-4.4); Hematocrit 32.1 % (37.0-47.0); Hemoglobin 9.9 g/dL (12.0-15.0); Immature Granulocyte Absolute 0.03 K/mm3 (0.00-0.031); Immature Granulocyte Percent A 0.4 % (0-0.5); Lymphocytes Absolute Auto 0.68 K/mm3 (0.9-3.2); Lymphocytes Percent Auto 9.1 % (18.3-44.2); Mean Corpuscular HGB Conc 30.8 g/dl (32-36); Mean Corpuscular Hemoglobin 29.6 pg (26-34); Mean Corpuscular Volume 96.1 fl (80-100); Mean Platelet Volume 8.5 fl (7.4-10.4); Monocytes Absolute Auto 0.9 K/mm3 (0.1-0.6); Monocytes Percent Auto 11.4 % (2.6-8.5); Neutrophils Absolute Auto 5.7 K/mm3 (1.3-6.7); Neutrophils Percent Auto 76.3 % (45.5-73.1); Platelet Count Result 320 k/mm3 (150-375); Red Blood Count 3.34 M/mm3 (4.2-5.4); Red Cell Distribution Width 16.7 % (11.5-14.5); White Blood Count 7.5 K/mm3 (4.5-10.0)
[2024-09-10 05:07] LABS: MRSA (PCR) NOT DETECTED (NOT DETECTE)
[2024-09-10 05:07] LABS: Anion Gap 9 mmol/L (4-12); Blood Urea Nitrogen 42 mg/dL (7-17); Calcium 8.9 mg/dL (8.4-10.2); Carbon Dioxide 21 mmol/L (22-30); Chloride 112 mmol/L (98-107); Estimated CRCL calculation 19 ml/min; Estimated Glomerular Filt Rate 30; Glucose 76 mg/dL (65-110); Magnesium 2.7 mg/dL (1.6-2.3); Potassium 5.3 mmol/L (3.4-5.0); Sodium 142 mmol/L (137-145)
[2024-09-10] MEDS: hydrALAZINE HCL 50 MG TABLET PO ×3 (08:08→16:47)
[2024-09-10] MEDS: FUROSEMIDE INJ 40 MG/4 ML VIAL 20 MG IV PUSH ×3 (08:08→17:39)
[2024-09-10] MEDS: OMEGA 3 POLYUNSAT FATTY ACIDS 1 GM CAP PO (08:08)
[2024-09-10] MEDS: CHOLECALCIFEROL 1,000 UNITS TABLET 2000 UNITS PO (08:08)
[2024-09-10] MEDS: carvediloL 12.5 MG TABLET PO ×2 (08:09→20:25)
[2024-09-10] MEDS: FAMOTIDINE 20 MG TABLET PO (08:09)
[2024-09-10] MEDS: MAGNESIUM OXIDE 400 MG TABLET PO (08:09)
[2024-09-10] MEDS: oxyBUTYnin CHLORIDE XL 5 MG TAB.ER.24 10 MG PO (08:10)
[2024-09-10] MEDS: ASCORBIC ACID 500 MG TABLET PO (08:10)
[2024-09-10] MEDS: FERROUS SULFATE 325 MG TABLET DR BY MOUTH (08:10)
[2024-09-10] MEDS: CYANOCOBALAMIN 1,000 MCG TABLET 1000 MCG PO (08:11)
[2024-09-10] MEDS: ARTIFICIAL TEARS OPHTH SOLN 15 ML BOTTLE 1 DROP EACH EYE ×2 (08:11→20:26)
[2024-09-10] MEDS: amLODIPine BESYLATE 5 MG TABLET PO (08:12)
[2024-09-10] MEDS: PSYLLIUM POWDER PACKET 1 PACKET PO (09:00)
[2024-09-10] MEDS: SODIUM ZIRCONIUM CYCLOSILICATE 5 GM POWD.PACK PO (10:36)
--- NOTE | 2024-09-10 11:10 | PC.NURSE ---
On 09/10/24, the student, [Ye Mckeon], provided care and completed [facility] documentation on this patient. I have reviewed the student's documentation and agree with the findings.
--- NOTE | 2024-09-10 13:30 | PC.NURSE ---
On 09/10/24, the student, [Adriana Haynes], provided care and completed [facility] documentation on this patient. I have reviewed the student's documentation and agree with the findings.
--- NOTE | 2024-09-10 15:55 | PM.IMPN ---
Progress Note: A&P Assessment and Plan (1) CHF exacerbation: Qualifiers: Heart failure type: unspecified Qualified Code(s): I50.9 - Heart failure, unspecified Code(s): I50.9 - Heart failure, unspecified Status: Acute (2) Bilateral pleural effusion: Code(s): J90 - Pleural effusion, not elsewhere classified Status: Inactive (3) Diastolic dysfunction: Code(s): I51.89 - Other ill-defined heart diseases Status: Acute (4) Hyperkalemia: Code(s): E87.5 - Hyperkalemia Status: Acute (5) Normocytic anemia: Code(s): D64.9 - Anemia, unspecified Status: Acute (6) Poorly-controlled hypertension: Code(s): I10 - Essential (primary) hypertension Status: Acute (7) Metastatic adenocarcinoma: Code(s): C79.9 - Secondary malignant neoplasm of unspecified site Status: Acute (8) Chronic GERD: Code(s): K21.9 - Gastro-esophageal reflux disease without esophagitis Status: Chronic Plan The patient presented to the emergency department for evaluation of increasing shortness of breath over the last several weeks as detailed in HPI. Labs, imaging, EKG, and all reports were personally reviewed. Chest CTA was negative for pulmonary embolism but did demonstrate large bilateral pleural effusions and additional findings suggestive of congestive heart failure. She will be diuresed with close monitoring of volume status, renal function, and electrolytes. Initial potassium was 6.1 but has normalized with appropriate therapy. 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 Her blood pressures are poorly controlled at baseline according to the patient and her , always running at least 150 systolic but typically higher. She recently had some changes to her medications and blood pressures will continue to be monitored closely. Her hemoglobin has drifted down over the last 6 months or so and given her history of bleeding ulcer, will check stool for occult blood as well as iron studies. Other chronic conditions are stable. Her home medications will be reviewed and resumed as appropriate. Findings and treatment plan were discussed with the patient and her . Questions were solicited and answered to satisfaction. The patient's medical management will be taken over by the hospitalist team in a.m. Patient with metastatic ovarian cancer status post chemotherapy in June 2022 who presented to the emergency department via private vehicle from home with complaints of shortness of breath is found to have diastolic dysfunction, most likely patient is have acute on chronic diastaltic congestive heart failure, this has also resulted in pleural effusion causing her shortness of breath, patient is being diuresed, will monitor, discussed with patient and her if her symptoms do not improve with the treatment patient will need thoracentesis, will monitor and plan. Subjective Date/time seen: 09/10/24 15:55 Interval history: Chief Complaint: Shortness of breath. H&P-Narrative: This is an 84-year-old female with history of heart block status post permanent Biotronik pacemaker, hypertension, dyslipidemia, diastolic dysfunction, pulmonary embolism in June 2021 treated with anticoagulation for 6 months at which time she developed anemia due to bleeding gastric ulcer, chronic kidney disease stage 3, and metastatic ovarian cancer status post chemotherapy in June 2022 who presented to the emergency department via private vehicle from home with complaints of shortness of breath. The patient and her provides the following history. She reports a gradual onset of lower extremity edema and increasing shortness of breath on lesser and lesser exertion over the past 2 weeks or so. She complains of tightness throughout her chest which ?seems to be getting worse every day and a cough which is occasionally productive of yellow-colored phlegm. Her appetite has not been great and she reports early satiety for an unknown length of time. She denies fever, chills, sweats, syncope, near syncope, sore throat, pleuritic pain, palpitations, orthopnea, paroxysmal nocturnal dyspnea, epigastric and abdominal pain, bloating, belching, dysphagia, calf pain, hematochezia, and melena. In the ED: Vital signs on arrival include a temperature of 97.9?, blood pressure 170/70, pulse 66, respiratory 22, SpO2 93% on room air. Labs were significant for WBC count 8.7, hemoglobin 9.4, D-dimer 3.94, sodium 140, potassium 6.1, chloride 114, carbon dioxide 15, BUN 44, creatinine 1.56, troponin less than 0.012, proBNP 4680, total protein 6.0, albumin 3.2. Chest CTA showed large bilateral pleural effusions, left greater than right, additional findings suggestive of congestive heart failure, and was negative for pulmonary embolism. She was given furosemide 40 mg IV and calcium gluconate/insulin with dextrose/sodium bicarbonate for hyperkalemia and she is being admitted in this setting for further treatment and evaluation. Patient with metastatic ovarian cancer status post chemotherapy in June 2022 who presented to the emergency department via private vehicle from home with complaints of shortness of breath is found to have diastolic dysfunction, most likely patient is have acute on chronic diastaltic congestive heart failure, this has also resulted in pleural effusion causing her shortness of breath, patient is being diuresed, will monitor, discussed with patient and her if her symptoms do not improve with the treatment patient will need thoracentesis, will monitor and plan. Review of Systems Review of Systems: 12 systems were reviewed and are negative except for as per HPI. Exam Narrative: Elderly frail Patient is comfortable, NAD HEENT: eyes are clear and none icteric LUNGS: Diminishing air entry bilaterally HEART: RR S1S2 ABD: BS+, Soft and nontender Lower extremities: no edema SKIN: nonjaundiced Neuro: grossly intact. Objective Data Vital Signs Vital Signs: Vital Signs - 24 hr 09/09/24 16:00 09/09/24 18:00 09/09/24 18:30 Temperature Pulse Rate 66 73 76 Respiratory Rate 16 16 22 H Blood Pressure 200/86 H 191/84 H 190/88 H Pulse Oximetry 97 100 93 Oxygen Delivery 09/09/24 21:14 09/09/24 23:37 09/10/24 00:00 Temperature 36.5 C Pulse Rate 66 71 Respiratory Rate 14 18 Blood Pressure 186/70 H 174/136 H Pulse Oximetry 92 94 Oxygen Delivery Room Air 09/10/24 00:00 09/10/24 01:30 09/10/24 02:00 Temperature Pulse Rate 69 71 66 Respiratory Rate Blood Pressure 152/99 H Pulse Oximetry Oxygen Delivery 09/10/24 03:21 09/10/24 04:00 09/10/24 04:00 Temperature 36.6 C Pulse Rate 74 71 Respiratory Rate 17 Blood Pressure 168/74 H Pulse Oximetry 94 Oxygen Delivery Room Air 09/10/24 06:00 09/10/24 07:37 09/10/24 08:00 Temperature 36.3 C L Pulse Rate 67 73 Respiratory Rate 14 Blood Pressure 190/73 H Pulse Oximetry 96 93 Oxygen Delivery Room Air 09/10/24 08:00 09/10/24 08:09 09/10/24 09:25 Temperature Pulse Rate 79 78 Respiratory Rate Blood Pressure 176/57 H Pulse Oximetry Oxygen Delivery 09/10/24 09:35 09/10/24 10:00 09/10/24 11:37 Temperature 36.5 C Pulse Rate 69 73 Respiratory Rate 18 Blood Pressure 161/75 H Pulse Oximetry 93 95 Oxygen Delivery Room Air Intake/Output Intake/Output: Intake & Output 09/07/24 09/08/24 09/09/24 09/10/24 23:59 23:59 23:59 23:59 Intake Total 470 Output Total 1050 Balance -580 Meds/Results Medications: Active Medications Generic Name Dose Route Start Last Admin Trade Name Freq PRN Reason Stop Dose Admin Acetaminophen 650 mg 09/09/24 23:09 Acetaminophen 325 Mg Tablet PO Q6H PRN Mild Pain (1-3) or Fever Albuterol 2 puff 09/10/24 02:37 Albuterol Sulfate (*Sp) Aerosol 1 Puff INHALATION Q4H PRN shortness of breath or wheezing Alprazolam 0.25 mg 09/10/24 02:37 Alprazolam (*Crx) 0.25 Mg Tablet PO TID PRN anxiety Amlodipine Besylate 5 mg 09/10/24 09:00 09/10/24 08:12 Amlodipine Besylate 5 Mg Tablet PO 5 mg DAILY MIS Administration Artificial Tears 1 drop 09/10/24 02:47 09/10/24 08:11 Artificial Tears Ophth Soln 15 Ml Bottle EACH EYE 1 drop Q6H PRN Administration Pain DRY EYE Artificial Tears 1 drop 09/10/24 21:00 Artificial Tears Ophth Soln 15 Ml Bottle EACH EYE HS MIS Ascorbic Acid 500 mg 09/10/24 09:00 09/10/24 08:10 Ascorbic Acid 500 Mg Tablet PO 500 mg DAILY MIS Administration Aspirin 81 mg 09/10/24 21:00 Aspirin 81 Mg Enteric Tablet PO HS MIS Carvedilol 12.5 mg 09/10/24 09:00 09/10/24 08:09 Carvedilol 12.5 Mg Tablet PO 12.5 mg Q12HR MIS Administration Cyanocobalamin 1,000 mcg 09/10/24 09:00 09/10/24 08:11 Cyanocobalamin 1,000 Mcg Tablet PO 1,000 mcg DAILY MIS Administration Famotidine 20 mg 09/10/24 09:00 09/10/24 08:09 Famotidine 20 Mg Tablet PO 20 mg DAILY MIS Administration Ferrous Sulfate 325 mg 09/10/24 08:00 09/10/24 08:10 Ferrous Sulfate [address] BY MOUTH 325 mg DAILY@0800 MIS Administration Fish Oil 1 gm 09/10/24 09:00 09/10/24 08:08 [place] 3 Polyunsat Fatty Acids 1 Gm Cap PO 1 gm DAILY MIS Administration Furosemide 20 mg 09/10/24 09:00 09/10/24 08:08 Furosemide Inj 40 Mg/4 Ml Vial IV PUSH 20 mg BID MIS Administration Hydralazine HCl 50 mg 09/10/24 08:00 09/10/24 11:28 Hydralazine Hcl 50 Mg Tablet PO 50 mg TIDWM MIS Administration Hydralazine HCl 10 mg 09/10/24 11:15 Hydralazine 10 Mg Tablet PO QID PRN SBP >180 Lidocaine/Prilocaine 1 each 09/10/24 02:37 Lidocaine/Prilocaine Cream 2.5-2.5% Tube TOPICAL ONCE PRN port/catheter care Magnesium Oxide 400 mg 09/10/24 09:00 09/10/24 08:09 Magnesium Oxide 400 Mg Tablet PO 400 mg DAILY [facility] Administration Oxybutynin Chloride 10 mg 09/10/24 09:00 09/10/24 08:10 Oxybutynin Chloride Xl 5 Mg Tab.Er.24 PO 10 mg DAILY [facility] Administration Pantoprazole Sodium 40 mg 09/10/24 21:00 Pantoprazole 40 Mg Tablet PO QHS [facility] Perflutren Lipid Microsphere 0 ml 09/09/24 23:09 Perflutren Lipid Microspheres 1.5 Ml Vial Diluted To 10 Ml Total Volume IV PUSH 09/12/24 23:09 ONCE PRN adequate visualization Protocol Pravastatin Sodium 40 mg 09/10/24 21:00 Pravastatin Sodium 20 Mg Tablet PO QHS [facility] Psyllium Hydrophilic Mucilloid 1 packet 09/10/24 02:37 09/10/24 09:00 Psyllium Powder Packet PO 1 packet DAILY PRN Administration Constipation Sodium Zirconium Cyclosilicate 5 gm 09/10/24 10:00 09/10/24 10:36 Sodium Zirconium Cyclosilicate 5 Gm Powd.Pack PO 5 gm DAILY@1000 [facility] Administration Vitamin D 2,000 units 09/10/24 09:00 09/10/24 08:08 Cholecalciferol 1,000 Units Tablet PO 2,000 units DAILY MIS Administration Radiology Results: ITS Impressions Chest X-Ray 09/09/24 15:44 IMPRESSION: Moderate pulmonary vascular congestion with bilateral pleural effusions and bibasilar infiltrates. Chest CTA 09/09/24 20:14 IMPRESSION: No pulmonary embolus. No thoracic aortic dissection. Large bilateral pleural effusions, left greater than right. Additional findings suggesting congestive failure. Labs Labs: Laboratory Results - last 24 hr 09/09/24 09/09/24 09/09/24 15:26 15:28 15:54 WBC RBC Hgb Hct MCV MCH MCHC RDW Plt Count MPV Immature Gran % (Auto) Neut % (Auto) Lymph % (Auto) [place] % (Auto) Eos % (Auto) Baso % (Auto) Lymph # (Auto) [place] # (Auto) Eos # (Auto) Baso # (Auto) Abs Immat Gran (auto) Absolute Neuts (auto) Absolute Nucleated RBC Nucleated RBC % D-Dimer 3.94 H Sodium 140 Potassium 6.1 H* Chloride 114 H Carbon Dioxide 15 L Anion Gap 11 BUN 44 H Creatinine 1.56 H Estim Creat Clear Calc 20 Estimated GFR 32 L Glucose 119 H Calcium 8.8 Magnesium Iron TIBC % Saturation Ferritin Total Bilirubin 0.5 AST 28 ALT 20 Alkaline Phosphatase 109 Troponin I < 0.012 NT-Pro-B Natriuret Pep 4680 H Total Protein 6.0 L Albumin 3.2 L Vitamin B12 Folate TSH (Reflex) Nasal MRSA (PCR) Influenza A (RT-PCR) Negative Influenza B (RT-PCR) Negative RSV (RT-PCR) Negative SARS-CoV-2 RNA (RT-PCR) Negative 09/09/24 09/10/24 09/10/24 21:41 03:53 04:09 WBC 7.5 RBC 3.34 L Hgb 9.9 L Hct 32.1 L MCV 96.1 MCH 29.6 MCHC 30.8 L RDW 16.7 H Plt Count 320 MPV 8.5 Immature Gran % (Auto) 0.4 Neut % (Auto) 76.3 H Lymph % (Auto) 9.1 L [place] % (Auto) 11.4 H Eos % (Auto) 1.9 Baso % (Auto) 0.9 Lymph # (Auto) 0.68 L [place] # (Auto) 0.9 H Eos # (Auto) 0.1 Baso # (Auto) 0.1 Abs Immat Gran (auto) 0.03 Absolute Neuts (auto) 5.7 Absolute Nucleated RBC 0.000 Nucleated RBC % 0.0 D-Dimer Sodium 140 142 Potassium 4.9 5.3 H Chloride 112 H 112 H Carbon Dioxide 18 L 21 L Anion Gap 10 9 BUN 46 H 42 H Creatinine 1.56 H 1.64 H Estim Creat Clear Calc 20 19 Estimated GFR 32 L 30 L Glucose 71 76 Calcium 9.1 8.9 Magnesium 2.7 H Iron 149 TIBC 240 L % Saturation 62 H Ferritin 66.80 Total Bilirubin AST ALT Alkaline Phosphatase Troponin I < 0.012 NT-Pro-B Natriuret Pep Total Protein Albumin Vitamin B12 > 1000.0 H Folate 10.8 TSH (Reflex) 1.800 Nasal MRSA (PCR) Not detected Influenza A (RT-PCR) Influenza B (RT-PCR) RSV (RT-PCR) SARS-CoV-2 RNA (RT-PCR) Quality VTE Prophylaxis VTE prophylaxis: mechanical ordered
--- NOTE | 2024-09-10 16:32 | PC.NURSE ---
Pt complains of pressure to center of chest. States It feels like it did when I came in . RR 20. O2 98% on RA. Color normal for pt. Skin warm and dry. Notified Dr. Hutchinson. Will give scheduled dose of Lasix and hydralazine and reassess in 30 minutes.
--- NOTE | 2024-09-10 17:21 | PC.NURSE ---
Pt continues to have dyspnea. Resp rate 22. O2 95% on RA. New orders noted for CXR, ABG, at one time dose of Lasix 20 mg x 1.
[2024-09-10 17:44] LABS: Alveolar/Arterial O2 Gradient 54.8 mmHg; Base Excess ABG -2.7 mEq/l (+/-2.0); Fractional Inspired Oxygen 21 %; HCO3 ABG 19.1 mEq/l (22.0-26.0); Oxygen Content ABG 13.9 %vol (16.0-22.0); Oxygen Saturation ABG 95.1 % (95.0-100.0); Oxyhemoglobin 92.7 % THb (90.0-100.0); PCO2 ABG 24.4 mmHg (35.0-45.0); PO2 ABG 65.7 mmHg (80.0-100.0); PO2 FiO2 Ratio Arterial Blood 3.13 %; Total Hemoglobin 10.6 g/dL (12.0-18.0)
[2024-09-10 17:47] LABS: Device ROOM AIR; Site Drawn LEFT BRACHIAL; pH ABG 7.511 (7.350-7.450)
--- NOTE | 2024-09-10 19:02 | PC.NURSE ---
Resting in bed. Dyspnea has improved. Advised pt to report any worsening of symptoms. On 2L via NC. O2 99%. RR 22.
[2024-09-10] MEDS: hydrALAZINE 10 MG TABLET PO (20:25)
[2024-09-10] MEDS: PRAVASTATIN SODIUM 20 MG TABLET 40 MG PO (20:25)
[2024-09-10] MEDS: ALPRAZolam (*CRX) 0.25 MG TABLET PO (20:25)
[2024-09-10] MEDS: ASPIRIN 81 MG ENTERIC TABLET PO (20:25)
[2024-09-10] MEDS: PANTOPRAZOLE 40 MG TABLET PO (20:25)
[2024-09-11] VITALS (20 sets, daily range): BP systolic 148–185; BP diastolic 61–71; PULSE 62–79; RESP 16–17; TEMP 36.5–36.8; O2SAT 96–100
[2024-09-11 04:43] LABS: Hematocrit 30.8 % (37.0-47.0); Hemoglobin 9.4 g/dL (12.0-15.0); Mean Corpuscular HGB Conc 30.5 g/dl (32-36); Mean Corpuscular Hemoglobin 29.2 pg (26-34); Mean Corpuscular Volume 95.7 fl (80-100); Mean Platelet Volume 8.2 fl (7.4-10.4); Platelet Count Result 309 k/mm3 (150-375); Red Blood Count 3.22 M/mm3 (4.2-5.4); Red Cell Distribution Width 16.9 % (11.5-14.5); White Blood Count 5.9 K/mm3 (4.5-10.0)
[2024-09-11 05:00] LABS: Anion Gap 7 mmol/L (4-12); Blood Urea Nitrogen 40 mg/dL (7-17); Calcium 8.1 mg/dL (8.4-10.2); Carbon Dioxide 23 mmol/L (22-30); Chloride 110 mmol/L (98-107); Estimated CRCL calculation 18 ml/min; Estimated Glomerular Filt Rate 29; Glucose 85 mg/dL (65-110); Magnesium 2.4 mg/dL (1.6-2.3); Potassium 4.1 mmol/L (3.4-5.0); Sodium 140 mmol/L (137-145)
--- NOTE | 2024-09-11 07:21 | P.PNIM_ITS ---
Progress Note: A&P Assessment and Plan (1) CHF exacerbation: Qualifiers: Heart failure type: unspecified Qualified Code(s): I50.9 - Heart failure, unspecified Code(s): I50.9 - Heart failure, unspecified Status: Acute (2) Bilateral pleural effusion: Code(s): J90 - Pleural effusion, not elsewhere classified Status: Inactive (3) Diastolic dysfunction: Code(s): I51.89 - Other ill-defined heart diseases Status: Acute (4) Hyperkalemia: Code(s): E87.5 - Hyperkalemia Status: Acute (5) Normocytic anemia: Code(s): D64.9 - Anemia, unspecified Status: Acute (6) Poorly-controlled hypertension: Code(s): I10 - Essential (primary) hypertension Status: Acute (7) Metastatic adenocarcinoma: Code(s): C79.9 - Secondary malignant neoplasm of unspecified site Status: Acute (8) Chronic GERD: Code(s): K21.9 - Gastro-esophageal reflux disease without esophagitis Status: Chronic Plan This is an 84-year-old female who presented to the emergency department via private vehicle from home with complaints of shortness of breath. She reports a gradual onset of lower extremity edema and increasing shortness of breath on lesser and lesser exertion over the past 2 weeks or so. She complains of tightness throughout her chest which ?seems to be getting worse every day and a cough which is occasionally productive of yellow-colored phlegm. Her appetite has not been great and she reports early satiety for an unknown length of time. She denies fever, chills, sweats, syncope, near syncope, sore throat, pleuritic pain, palpitations, orthopnea, paroxysmal nocturnal dyspnea, epigastric and abdominal pain, bloating, belching, dysphagia, calf pain, hematochezia, and melena. In the ED: Vital signs on arrival include a temperature of 97.9?, blood pressure 170/70, pulse 66, respiratory 22, SpO2 93% on room air. Labs were significant for WBC count 8.7, hemoglobin 9.4, D-dimer 3.94, sodium 140, potassium 6.1, chloride 114, carbon dioxide 15, BUN 44, creatinine 1.56, troponin less than 0.012, proBNP 4680, total protein 6.0, albumin 3.2. Chest CTA showed large bilateral pleural effusions, left greater than right, additional findings suggestive of congestive heart failure, and was negative for pulmonary embolism. She was given furosemide 40 mg IV and calcium gluconate/insulin with dextrose/sodium bicarbonate for hyperkalemia and she is being admitted in this setting for further treatment and evaluation. acute on chronic diastolic heart failure continue iv diuresis. rpeat echo with ef 60-65%, grade 1 diastolic dysfunction, mild to mod MR, mild pullm HTN. Increase Lasix to 40 mg b.i.d. hyperkalemia resolved on Lokelma bilatearl pleural effusions she had increasing CA [address] chest abdomen pelvis with no acute findings. Discussed thoracentesis for further evaluation. Agreeable will order 1 hypertension: poorly controlled at home. anemia: history of heart block status post permanent Biotronik pacemaker hypertension, dyslipidemia, diastolic dysfunction, pulmonary embolism in June 2021 treated with anticoagulation for 6 months hx of bleeding gastric ulcer, chronic kidney disease stage 3 metastatic ovarian cancer status post chemotherapy in June 2022 Subjective Date/time seen: 09/11/24 07:21 Interval history: Patient had shortness of breath last evening. This is much better now. She is on oxygen via nasal cannula. Discussed thoracentesis with the patient. Blood pressure not controlled. Review of Systems Review of Systems: All systems reviewed & are unremarkable except as noted in HPI and below Exam Narrative: Elderly frail Patient is comfortable, NAD HEENT: eyes are clear and none icteric LUNGS: Diminishing air entry bilaterally HEART: RR S1S2 ABD: BS+, Soft and nontender Lower extremities: no edema SKIN: nonjaundiced Neuro: grossly intact. Objective Data Vital Signs Vital Signs: Vital Signs - 24 hr 09/10/24 07:37 09/10/24 08:00 09/10/24 08:00 Temperature 97.4 F L Pulse Rate 73 79 Respiratory Rate 14 Blood Pressure 190/73 H Pulse Oximetry 96 93 Oxygen Delivery Room Air Oxygen Flow Rate 09/10/24 08:09 09/10/24 09:25 09/10/24 09:35 Temperature Pulse Rate 78 Respiratory Rate Blood Pressure 176/57 H Pulse Oximetry 93 Oxygen Delivery Room Air Oxygen Flow Rate 09/10/24 10:00 09/10/24 11:37 09/10/24 12:00 Temperature 97.7 F Pulse Rate 69 73 Respiratory Rate 18 Blood Pressure 161/75 H Pulse Oximetry 95 95 Oxygen Delivery Room Air Oxygen Flow Rate 09/10/24 12:00 09/10/24 14:00 09/10/24 16:00 Temperature Pulse Rate 65 63 67 Respiratory Rate Blood Pressure Pulse Oximetry Oxygen Delivery Oxygen Flow Rate 09/10/24 16:00 09/10/24 16:00 09/10/24 18:00 Temperature 98.5 F Pulse Rate 64 71 Respiratory Rate 14 Blood Pressure 177/66 H Pulse Oximetry 95 96 Oxygen Delivery Room Air Oxygen Flow Rate 09/10/24 20:00 09/10/24 20:00 09/10/24 20:00 Temperature 98.0 F Pulse Rate 76 70 Respiratory Rate 19 Blood Pressure 204/68 H Pulse Oximetry 96 96 Oxygen Delivery Nasal Cannula Oxygen Flow Rate 2 09/10/24 20:25 09/10/24 22:00 09/10/24 23:47 Temperature 97.7 F Pulse Rate 70 67 64 Respiratory Rate 18 Blood Pressure 152/66 H Pulse Oximetry 97 Oxygen Delivery Oxygen Flow Rate 09/11/24 00:00 09/11/24 00:00 09/11/24 02:00 Temperature Pulse Rate 78 65 Respiratory Rate Blood Pressure Pulse Oximetry 97 Oxygen Delivery Nasal Cannula Oxygen Flow Rate 2 09/11/24 04:00 09/11/24 04:00 09/11/24 04:00 Temperature 97.7 F Pulse Rate 63 64 Respiratory Rate 17 Blood Pressure 183/65 H Pulse Oximetry 97 96 Oxygen Delivery Nasal Cannula Oxygen Flow Rate 2 09/11/24 06:00 Temperature Pulse Rate 66 Respiratory Rate Blood Pressure Pulse Oximetry Oxygen Delivery Oxygen Flow Rate Intake/Output Intake/Output: Intake & Output 09/08/24 09/09/24 09/10/24 09/11/24 23:59 23:59 23:59 23:59 Intake Total 590 Output Total 1800 300 Balance -1210 -300 Meds/Results Medications: Active Medications Generic Name Dose Route Start Last Admin Trade Name Freq PRN Reason Stop Dose Admin Acetaminophen 650 mg 09/09/24 23:09 Acetaminophen 325 Mg Tablet PO Q6H PRN Mild Pain (1-3) or Fever Albuterol 2 puff 09/10/24 02:37 Albuterol Sulfate (*Sp) Aerosol 1 Puff INHALATION Q4H PRN shortness of breath or wheezing Alprazolam 0.25 mg 09/10/24 02:37 09/10/24 20:25 Alprazolam (*Crx) 0.25 Mg Tablet PO 0.25 mg TID PRN Administration anxiety Amlodipine Besylate 5 mg 09/10/24 09:00 09/10/24 08:12 Amlodipine Besylate 5 Mg Tablet PO 5 mg DAILY MIS Administration Artificial Tears 1 drop 09/10/24 02:47 09/10/24 08:11 Artificial Tears Ophth Soln 15 Ml Bottle EACH EYE 1 drop Q6H PRN Administration Pain DRY EYE Artificial Tears 1 drop 09/10/24 21:00 09/10/24 20:26 Artificial Tears Ophth Soln 15 Ml Bottle EACH EYE 1 drop HS MIS Administration Ascorbic Acid 500 mg 09/10/24 09:00 09/10/24 08:10 Ascorbic Acid 500 Mg Tablet PO 500 mg DAILY MIS Administration Aspirin 81 mg 09/10/24 21:00 09/10/24 20:25 Aspirin 81 Mg Enteric Tablet PO 81 mg HS MIS Administration Carvedilol 12.5 mg 09/10/24 09:00 09/10/24 20:25 Carvedilol 12.5 Mg Tablet PO 12.5 mg Q12HR MIS Administration Cyanocobalamin 1,000 mcg 09/10/24 09:00 09/10/24 08:11 Cyanocobalamin 1,000 Mcg Tablet PO 1,000 mcg DAILY MIS Administration Famotidine 20 mg 09/10/24 09:00 09/10/24 08:09 Famotidine 20 Mg Tablet PO 20 mg DAILY MIS Administration Ferrous Sulfate 325 mg 09/10/24 08:00 09/10/24 08:10 Ferrous Sulfate [address] BY MOUTH 325 mg DAILY@0800 MIS Administration Fish Oil 1 gm 09/10/24 09:00 09/10/24 08:08 [place] 3 Polyunsat Fatty Acids 1 Gm Cap PO 1 gm DAILY MIS Administration Furosemide 20 mg 09/10/24 09:00 09/10/24 16:47 Furosemide Inj 40 Mg/4 Ml Vial IV PUSH 20 mg BID MIS Administration Hydralazine HCl 50 mg 09/10/24 08:00 09/10/24 16:47 Hydralazine Hcl 50 Mg Tablet PO 50 mg TIDWM MIS Administration Hydralazine HCl 10 mg 09/10/24 11:15 09/10/24 20:25 Hydralazine 10 Mg Tablet PO 10 mg QID PRN Administration SBP >180 Lidocaine/Prilocaine 1 each 09/10/24 02:37 Lidocaine/Prilocaine Cream 2.5-2.5% Tube TOPICAL ONCE PRN port/catheter care Magnesium Oxide 400 mg 09/10/24 09:00 09/10/24 08:09 Magnesium Oxide 400 Mg Tablet PO 400 mg DAILY MIS Administration Oxybutynin Chloride 10 mg 09/10/24 09:00 09/10/24 08:10 Oxybutynin Chloride Xl 5 Mg Tab.Er.24 PO 10 mg DAILY MIS Administration Pantoprazole Sodium 40 mg 09/10/24 21:00 09/10/24 20:25 Pantoprazole 40 Mg Tablet PO 40 mg QHS [facility]IS Administration Perflutren Lipid Microsphere 0 ml 09/09/24 23:09 Perflutren Lipid Microspheres 1.5 Ml Vial Diluted To 10 Ml Total Volume IV PUSH 09/12/24 23:09 ONCE PRN adequate visualization Protocol Pravastatin Sodium 40 mg 09/10/24 21:00 09/10/24 20:25 Pravastatin Sodium 20 Mg Tablet PO 40 mg QHS [facility]IS Administration Psyllium Hydrophilic Mucilloid 1 packet 09/10/24 02:37 09/10/24 09:00 Psyllium Powder Packet PO 1 packet DAILY PRN Administration Constipation Sodium Zirconium Cyclosilicate 5 gm 09/10/24 10:00 09/10/24 10:36 Sodium Zirconium Cyclosilicate 5 Gm Powd.Pack PO 5 gm DAILY@1000 MIS Administration Vitamin D 2,000 units 09/10/24 09:00 09/10/24 08:08 Cholecalciferol 1,000 Units Tablet PO 2,000 units DAILY [facility]IS Administration Radiology Results: ITS Impressions Chest CTA 09/09/24 20:14 IMPRESSION: No pulmonary embolus. No thoracic aortic dissection. Large bilateral pleural effusions, left greater than right. Additional findings suggesting congestive failure. Chest X-Ray 09/10/24 18:20 IMPRESSION: Redemonstration of moderate pulmonary vascular congestion with bilateral pleural effusions and bibasilar infiltrates. Labs Labs: Laboratory Results - last 24 hr 09/10/24 09/11/24 17:38 04:22 WBC 5.9 RBC 3.22 L Hgb 9.4 L Hct 30.8 L MCV 95.7 MCH 29.2 MCHC 30.5 L RDW 16.9 H Plt Count 309 MPV 8.2 Puncture Site Left brachial ABG pH 7.511 H* ABG pCO2 24.4 L ABG pO2 65.7 L ABG PO2/FiO2 Ratio 3.13 ABG HCO3 19.1 L ABG O2 Saturation 95.1 ABG O2 Content 13.9 L ABG Base Excess -2.7 A-a Gradient 54.8 Oxyhemoglobin 92.7 Total Hemoglobin 10.6 L O2 Delivery Device Room air O2 Liters/Min 0.0 FiO2 21 Sodium 140 Potassium 4.1 Chloride 110 H Carbon Dioxide 23 Anion Gap 7 BUN 40 H Creatinine 1.71 H Estim Creat Clear Calc 18 Estimated GFR 29 L Glucose 85 Calcium 8.1 L Magnesium 2.4 H
[2024-09-11] MEDS: CHOLECALCIFEROL 1,000 UNITS TABLET 2000 UNITS PO (08:44)
[2024-09-11] MEDS: carvediloL 12.5 MG TABLET PO ×2 (08:45→20:32)
[2024-09-11] MEDS: hydrALAZINE HCL 50 MG TABLET PO ×2 (08:45→17:59)
[2024-09-11] MEDS: MAGNESIUM OXIDE 400 MG TABLET PO (08:45)
[2024-09-11] MEDS: oxyBUTYnin CHLORIDE XL 5 MG TAB.ER.24 10 MG PO (08:45)
[2024-09-11] MEDS: ASCORBIC ACID 500 MG TABLET PO (08:46)
[2024-09-11] MEDS: FAMOTIDINE 20 MG TABLET PO (08:46)
[2024-09-11] MEDS: OMEGA 3 POLYUNSAT FATTY ACIDS 1 GM CAP PO (08:46)
[2024-09-11] MEDS: amLODIPine BESYLATE 5 MG TABLET PO (08:46)
[2024-09-11] MEDS: CYANOCOBALAMIN 1,000 MCG TABLET 1000 MCG PO (08:46)
[2024-09-11] MEDS: FERROUS SULFATE 325 MG TABLET DR BY MOUTH (08:46)
[2024-09-11 10:42] LABS: Prothrombin Time 13.8 Seconds (11.1-14.7)
[2024-09-11 10:43] LABS: Partial Thromboplastin Time 30.1 Seconds (22.3-36.8)
--- NOTE | 2024-09-11 11:14 | PC.NURSE ---
On 09/11/24, the student, [Ye Mckeon], provided care and completed [facility] documentation on this patient. I have reviewed the student's documentation and agree with the findings.
[2024-09-11] MEDS: FUROSEMIDE INJ 40 MG/4 ML VIAL IV PUSH ×2 (13:03→17:59)
--- NOTE | 2024-09-11 13:08 | PC.NURSE ---
On 09/11/24, the student, [Denisse Christy], provided care and completed [facility] documentation on this patient. I have reviewed the student's documentation and agree with the findings.
[2024-09-11 15:42] LABS: pH Pleural Fluid 7.436 (7.210-7.500)
[2024-09-11 16:03] LABS: Appearance Pleural Fluid Hazy (Clear); Color Pleural Fluid White (Colorless); Nucleated Cell Pleural Fluid 2621 /uL (0-1000); Pleural fluid source Pleural fluid
[2024-09-11 16:04] LABS: Lymphocytes Pleural Fluid 39 %; Macrophages Pleural Fluid 30 %; Monocytes Pleural Fluid 4 %; Neutrophils Pleural Fluid 27 % (0-25); RBC Pleural Fluid 7000 /uL (0-10000)
[2024-09-11 17:58] LABS: Lactate Dehydrogenase 247 U/L (120-246)
[2024-09-11] MEDS: ASPIRIN 81 MG ENTERIC TABLET PO (20:31)
[2024-09-11] MEDS: PRAVASTATIN SODIUM 20 MG TABLET 40 MG PO (20:32)
[2024-09-11] MEDS: PANTOPRAZOLE 40 MG TABLET PO (20:32)
[2024-09-11] MEDS: ALPRAZolam (*CRX) 0.25 MG TABLET PO (20:38)
[2024-09-11] MEDS: ARTIFICIAL TEARS OPHTH SOLN 15 ML BOTTLE 1 DROP EACH EYE (20:39)
[2024-09-11] MEDS: ACETAMINOPHEN 325 MG TABLET 650 MG PO (23:13)
[2024-09-12] VITALS (20 sets, daily range): BP systolic 141–170; BP diastolic 63–81; PULSE 64–79; RESP 16–20; TEMP 36.3–36.9; O2SAT 86–100
[2024-09-12 05:01] LABS: Basophils Percent Auto 0.6 % (0.2-1.2); Eosinophils Absolute Auto 0.4 K/mm3 (0-0.3); Eosinophils Percent Auto 5.4 % (0-4.4); Hematocrit 29.7 % (37.0-47.0); Hemoglobin 9.1 g/dL (12.0-15.0); Immature Granulocyte Absolute 0.03 K/mm3 (0.00-0.031); Immature Granulocyte Percent A 0.4 % (0-0.5); Lymphocytes Absolute Auto 0.74 K/mm3 (0.9-3.2); Lymphocytes Percent Auto 11.1 % (18.3-44.2); Mean Corpuscular HGB Conc 30.6 g/dl (32-36); Mean Corpuscular Hemoglobin 29.7 pg (26-34); Mean Corpuscular Volume 97.1 fl (80-100); Mean Platelet Volume 8.4 fl (7.4-10.4); Monocytes Percent Auto 15.4 % (2.6-8.5); Neutrophils Absolute Auto 4.5 K/mm3 (1.3-6.7); Neutrophils Percent Auto 67.1 % (45.5-73.1); Platelet Count Result 275 k/mm3 (150-375); Red Blood Count 3.06 M/mm3 (4.2-5.4); Red Cell Distribution Width 16.7 % (11.5-14.5); White Blood Count 6.7 K/mm3 (4.5-10.0)
[2024-09-12] MEDS: ACETAMINOPHEN 325 MG TABLET 650 MG PO ×3 (05:07→17:20)
[2024-09-12 05:18] LABS: Alanine Aminotransferase 15 U/L (6-35); Albumin Level 2.6 g/dL (3.5-5.1); Alkaline Phosphatase 89 U/L (38-126); Anion Gap 7 mmol/L (4-12); Aspartate Amino Transferase 21 U/L (14-36); Bilirubin,Total 0.7 mg/dL (0.2-1.3); Blood Urea Nitrogen 35 mg/dL (7-17); Calcium 7.9 mg/dL (8.4-10.2); Carbon Dioxide 23 mmol/L (22-30); Chloride 110 mmol/L (98-107); Estimated CRCL calculation 20 ml/min; Estimated Glomerular Filt Rate 33; Glucose 83 mg/dL (65-110); Magnesium 2.4 mg/dL (1.6-2.3); Potassium 3.8 mmol/L (3.4-5.0); Sodium 140 mmol/L (137-145)
[2024-09-12] MEDS: FERROUS SULFATE 325 MG TABLET DR BY MOUTH (08:45)
[2024-09-12] MEDS: FAMOTIDINE 20 MG TABLET PO (08:45)
[2024-09-12] MEDS: hydrALAZINE HCL 50 MG TABLET PO ×3 (08:45→17:25)
[2024-09-12] MEDS: ASCORBIC ACID 500 MG TABLET PO (08:45)
[2024-09-12] MEDS: amLODIPine BESYLATE 5 MG TABLET PO ×2 (08:45→22:28)
[2024-09-12] MEDS: MAGNESIUM OXIDE 400 MG TABLET PO (08:45)
[2024-09-12] MEDS: CHOLECALCIFEROL 1,000 UNITS TABLET 2000 UNITS PO (08:46)
[2024-09-12] MEDS: CYANOCOBALAMIN 1,000 MCG TABLET 1000 MCG PO (08:46)
[2024-09-12] MEDS: carvediloL 12.5 MG TABLET PO ×2 (08:46→22:28)
[2024-09-12] MEDS: OMEGA 3 POLYUNSAT FATTY ACIDS 1 GM CAP PO (08:46)
[2024-09-12] MEDS: oxyBUTYnin CHLORIDE XL 5 MG TAB.ER.24 10 MG PO (08:46)
[2024-09-12] MEDS: FUROSEMIDE INJ 40 MG/4 ML VIAL IV PUSH ×2 (10:12→17:25)
--- NOTE | 2024-09-12 13:18 | PM.IMPN ---
Progress Note: A&P Assessment and Plan (1) CHF exacerbation: Qualifiers: Heart failure type: unspecified Qualified Code(s): I50.9 - Heart failure, unspecified Code(s): I50.9 - Heart failure, unspecified Status: Acute (2) Bilateral pleural effusion: Code(s): J90 - Pleural effusion, not elsewhere classified Status: Inactive (3) Diastolic dysfunction: Code(s): I51.89 - Other ill-defined heart diseases Status: Acute (4) Hyperkalemia: Code(s): E87.5 - Hyperkalemia Status: Acute (5) Normocytic anemia: Code(s): D64.9 - Anemia, unspecified Status: Acute (6) Poorly-controlled hypertension: Code(s): I10 - Essential (primary) hypertension Status: Acute (7) Metastatic adenocarcinoma: Code(s): C79.9 - Secondary malignant neoplasm of unspecified site Status: Acute (8) Chronic GERD: Code(s): K21.9 - Gastro-esophageal reflux disease without esophagitis Status: Chronic Plan This is an 84-year-old female who presented to the emergency department via private vehicle from home with complaints of shortness of breath. She reports a gradual onset of lower extremity edema and increasing shortness of breath on lesser and lesser exertion over the past 2 weeks or so. She complains of tightness throughout her chest which ?seems to be getting worse every day and a cough which is occasionally productive of yellow-colored phlegm. Her appetite has not been great and she reports early satiety for an unknown length of time. She denies fever, chills, sweats, syncope, near syncope, sore throat, pleuritic pain, palpitations, orthopnea, paroxysmal nocturnal dyspnea, epigastric and abdominal pain, bloating, belching, dysphagia, calf pain, hematochezia, and melena. In the ED: Vital signs on arrival include a temperature of 97.9?, blood pressure 170/70, pulse 66, respiratory 22, SpO2 93% on room air. Labs were significant for WBC count 8.7, hemoglobin 9.4, D-dimer 3.94, sodium 140, potassium 6.1, chloride 114, carbon dioxide 15, BUN 44, creatinine 1.56, troponin less than 0.012, proBNP 4680, total protein 6.0, albumin 3.2. Chest CTA showed large bilateral pleural effusions, left greater than right, additional findings suggestive of congestive heart failure, and was negative for pulmonary embolism. She was given furosemide 40 mg IV and calcium gluconate/insulin with dextrose/sodium bicarbonate for hyperkalemia and she is being admitted in this setting for further treatment and evaluation. acute on chronic diastolic heart failure continue iv diuresis. rpeat echo with ef 60-65%, grade 1 diastolic dysfunction, mild to mod MR, mild pullm HTN. Increase Lasix to 40 mg b.i.d. continue diuresis hyperkalemia resolved on Lokelma bilatearl pleural effusions she had increasing CA [address] chest abdomen pelvis with no acute findings. Discussed thoracentesis for further evaluation. Agreeable and underwent thoracentesis removal of 500 cc of pleural fluid. Follow pleural fluid analysis hypertension: poorly controlled at home. Increase amlodipine to 10 mg daily anemia: history of heart block status post permanent Biotronik pacemaker hypertension, dyslipidemia, diastolic dysfunction, pulmonary embolism in June 2021 treated with anticoagulation for 6 months hx of bleeding gastric ulcer, chronic kidney disease stage 3 metastatic ovarian cancer status post chemotherapy in June 2022 Subjective Date/time seen: 09/12/24 13:18 Interval history: Patient underwent thoracentesis yesterday 500 cc of pleural fluid was removed. Breathing is better minimal cough. Blood pressure trend reviewed. Discussed findings with patient and family at bedside. Review of Systems Review of Systems: All systems reviewed & are unremarkable except as noted in HPI and below Exam Narrative: Elderly frail Patient is comfortable, NAD HEENT: eyes are clear and none icteric LUNGS: Diminishing air entry bilaterally HEART: RR S1S2 ABD: BS+, Soft and nontender Lower extremities: no edema SKIN: nonjaundiced Neuro: grossly intact. Objective Data Vital Signs Vital Signs: Vital Signs - 24 hr 09/11/24 13:39 09/11/24 15:39 09/11/24 15:39 Temperature Pulse Rate 68 68 68 Respiratory Rate 16 Blood Pressure Pulse Oximetry 98 Oxygen Delivery Nasal Cannula Oxygen Flow Rate 2 09/11/24 16:00 09/11/24 17:56 09/11/24 20:00 Temperature 98.0 F 98.1 F Pulse Rate 67 67 65 Respiratory Rate 16 16 Blood Pressure 163/61 H 148/70 H Pulse Oximetry 97 99 Oxygen Delivery Oxygen Flow Rate 09/11/24 20:00 09/11/24 20:10 09/11/24 20:30 Temperature Pulse Rate 62 65 66 Respiratory Rate 16 16 Blood Pressure Pulse Oximetry 99 100 Oxygen Delivery Nasal Cannula Nasal Cannula Oxygen Flow Rate 2 1 09/11/24 20:32 09/11/24 22:00 09/11/24 23:26 Temperature Pulse Rate 67 67 74 Respiratory Rate 16 Blood Pressure Pulse Oximetry 96 Oxygen Delivery Nasal Cannula Oxygen Flow Rate 1 09/12/24 00:00 09/12/24 00:00 09/12/24 01:30 Temperature 98.1 F Pulse Rate 74 64 66 Respiratory Rate 16 16 Blood Pressure 155/75 H Pulse Oximetry 96 86 L Oxygen Delivery Room Air Oxygen Flow Rate 09/12/24 01:32 09/12/24 03:50 09/12/24 04:00 Temperature 97.6 F Pulse Rate 66 79 79 Respiratory Rate 16 16 Blood Pressure 167/73 H Pulse Oximetry 96 96 Oxygen Delivery Nasal Cannula Oxygen Flow Rate 1 09/12/24 04:00 09/12/24 06:00 09/12/24 08:00 Temperature 97.3 F L Pulse Rate 65 64 72 Respiratory Rate 18 Blood Pressure 141/68 H Pulse Oximetry 96 Oxygen Delivery Oxygen Flow Rate 09/12/24 08:46 09/12/24 09:03 09/12/24 12:00 Temperature 98.5 F Pulse Rate 72 74 Respiratory Rate 20 Blood Pressure 170/70 H Pulse Oximetry 100 99 Oxygen Delivery Room Air Oxygen Flow Rate Intake/Output Intake/Output: Intake & Output 09/09/24 09/10/24 09/11/24 09/12/24 23:59 23:59 23:59 23:59 Intake Total 590 640 750 Output Total 1800 1100 200 Balance -1210 -460 550 Meds/Results Medications: Active Medications Generic Name Dose Route Start Last Admin Trade Name Freq PRN Reason Stop Dose Admin Acetaminophen 650 mg 09/09/24 23:09 09/12/24 10:52 Acetaminophen 325 Mg Tablet PO 650 mg Q6H PRN Administration Mild Pain (1-3) or Fever Albuterol 2 puff 09/10/24 02:37 Albuterol Sulfate (*Sp) Aerosol 1 Puff INHALATION Q4H PRN shortness of breath or wheezing Alprazolam 0.25 mg 09/10/24 02:37 09/11/24 20:38 Alprazolam (*Crx) 0.25 Mg Tablet PO 0.25 mg TID PRN Administration anxiety Amlodipine Besylate 5 mg 09/10/24 09:00 09/12/24 08:45 Amlodipine Besylate 5 Mg Tablet PO 5 mg DAILY MIS Administration Artificial Tears 1 drop 09/10/24 02:47 09/10/24 08:11 Artificial Tears Ophth Soln 15 Ml Bottle EACH EYE 1 drop Q6H PRN Administration Pain DRY EYE Artificial Tears 1 drop 09/10/24 21:00 09/11/24 20:39 Artificial Tears Ophth Soln 15 Ml Bottle EACH EYE 1 drop HS MIS Administration Ascorbic Acid 500 mg 09/10/24 09:00 09/12/24 08:45 Ascorbic Acid 500 Mg Tablet PO 500 mg DAILY MIS Administration Aspirin 81 mg 09/10/24 21:00 09/11/24 20:31 Aspirin 81 Mg Enteric Tablet PO 81 mg HS MIS Administration Carvedilol 12.5 mg 09/10/24 09:00 09/12/24 08:46 Carvedilol 12.5 Mg Tablet PO 12.5 mg Q12HR MIS Administration Cyanocobalamin 1,000 mcg 09/10/24 09:00 09/12/24 08:46 Cyanocobalamin 1,000 Mcg Tablet PO 1,000 mcg DAILY MIS Administration Famotidine 20 mg 09/10/24 09:00 09/12/24 08:45 Famotidine 20 Mg Tablet PO 20 mg DAILY MIS Administration Ferrous Sulfate 325 mg 09/10/24 08:00 09/12/24 08:45 Ferrous Sulfate [address] BY MOUTH 325 mg DAILY@0800 MIS Administration Fish Oil 1 gm 09/10/24 09:00 09/12/24 08:46 [place] 3 Polyunsat Fatty Acids 1 Gm Cap PO 1 gm DAILY MIS Administration Furosemide 40 mg 09/11/24 09:00 09/12/24 10:12 Furosemide Inj 40 Mg/4 Ml Vial IV PUSH 40 mg BID MIS Administration Hydralazine HCl 50 mg 09/10/24 08:00 09/12/24 08:45 Hydralazine Hcl 50 Mg Tablet PO 50 mg TIDWM MIS Administration Hydralazine HCl 10 mg 09/10/24 11:15 09/10/24 20:25 Hydralazine 10 Mg Tablet PO 10 mg QID PRN Administration SBP >180 Lidocaine/Prilocaine 1 each 09/10/24 02:37 Lidocaine/Prilocaine Cream 2.5-2.5% Tube TOPICAL ONCE PRN port/catheter care Magnesium Oxide 400 mg 09/10/24 09:00 09/12/24 08:45 Magnesium Oxide 400 Mg Tablet PO 400 mg DAILY MIS Administration Oxybutynin Chloride 10 mg 09/10/24 09:00 09/12/24 08:46 Oxybutynin Chloride Xl 5 Mg Tab.Er.24 PO 10 mg DAILY MIS Administration Pantoprazole Sodium 40 mg 09/10/24 21:00 09/11/24 20:32 Pantoprazole 40 Mg Tablet PO 40 mg QHS MIS Administration Perflutren Lipid Microsphere 0 ml 09/09/24 23:09 Perflutren Lipid Microspheres 1.5 Ml Vial Diluted To 10 Ml Total Volume IV PUSH 09/12/24 23:09 ONCE PRN adequate visualization Protocol Pravastatin Sodium 40 mg 09/10/24 21:00 09/11/24 20:32 Pravastatin Sodium 20 Mg Tablet PO 40 mg QHS MIS Administration Psyllium Hydrophilic Mucilloid 1 packet 09/10/24 02:37 09/10/24 09:00 Psyllium Powder Packet PO 1 packet DAILY PRN Administration Constipation Sodium Zirconium Cyclosilicate 5 gm 09/10/24 10:00 09/11/24 08:49 Sodium Zirconium Cyclosilicate 5 Gm Powd.Pack PO Not Given DAILY@1000 [facility] Vitamin D 2,000 units 09/10/24 09:00 09/12/24 08:46 Cholecalciferol 1,000 Units Tablet PO 2,000 units DAILY MIS Administration Radiology Results: ITS Impressions Chest CTA 09/09/24 20:14 IMPRESSION: No pulmonary embolus. No thoracic aortic dissection. Large bilateral pleural effusions, left greater than right. Additional findings suggesting congestive failure. Chest X-Ray 09/11/24 15:10 IMPRESSION: Left basilar atelectasis versus pneumonia. Thoracentesis Ultrasound 09/11/24 16:01 IMPRESSION: 1. Successful ultrasound-guided thoracentesis yielding 500 mL of yandy-colored fluid. Labs Labs: Laboratory Results - last 24 hr 09/11/24 09/11/24 09/12/24 04:17 15:10 04:38 WBC 6.7 RBC 3.06 L Hgb 9.1 L Hct 29.7 L MCV 97.1 MCH 29.7 MCHC 30.6 L RDW 16.7 H Plt Count 275 MPV 8.4 Immature Gran % (Auto) 0.4 Neut % (Auto) 67.1 Lymph % (Auto) 11.1 L Weld % (Auto) 15.4 H Eos % (Auto) 5.4 H Baso % (Auto) 0.6 Lymph # (Auto) 0.74 L [place] # (Auto) 1.0 H Eos # (Auto) 0.4 H Baso # (Auto) 0.0 Abs Immat Gran (auto) 0.03 Absolute Neuts (auto) 4.5 Absolute Nucleated RBC 0.000 Nucleated RBC % 0.0 Sodium 140 Potassium 3.8 Chloride 110 H Carbon Dioxide 23 Anion Gap 7 BUN 35 H Creatinine 1.51 H Estim Creat Clear Calc 20 Estimated GFR 33 L Glucose 83 Calcium 7.9 L Magnesium 2.4 H Total Bilirubin 0.7 AST 21 ALT 15 Alkaline Phosphatase 89 Lactate Dehydrogenase 247 H Total Protein 6.0 L Albumin 2.6 L Pleural Fluid Source Pleural fluid Pleural Color White Pleural Appearance Hazy Pleural pH 7.436 Pleural RBC 7000 Pleural Nuc Cells 2621 H Pleural Neutrophils 27 H Pleural Lymphocytes 39 Pleural Monocytes 4 Pleural Macrophages 30
[2024-09-12 14:15] LABS: IFOB Positive Control Positive; Immunochemical Fecal Occult Bl Positive (N)
[2024-09-12] MEDS: PANTOPRAZOLE 40 MG TABLET PO (22:28)
[2024-09-12] MEDS: PRAVASTATIN SODIUM 20 MG TABLET 40 MG PO (22:28)
[2024-09-12] MEDS: ASPIRIN 81 MG ENTERIC TABLET PO (22:28)
[2024-09-13] VITALS (16 sets, daily range): BP systolic 138–160; BP diastolic 53–67; PULSE 60–80; RESP 14–18; TEMP 36.4–37.2; O2SAT 93–99
[2024-09-13 05:37] LABS: Hematocrit 30.3 % (37.0-47.0); Hemoglobin 9.5 g/dL (12.0-15.0); Mean Corpuscular HGB Conc 31.4 g/dl (32-36); Mean Corpuscular Hemoglobin 30.1 pg (26-34); Mean Corpuscular Volume 95.9 fl (80-100); Mean Platelet Volume 8.4 fl (7.4-10.4); Platelet Count Result 286 k/mm3 (150-375); Red Blood Count 3.16 M/mm3 (4.2-5.4); Red Cell Distribution Width 16.5 % (11.5-14.5); White Blood Count 6.7 K/mm3 (4.5-10.0)
[2024-09-13 05:54] LABS: Anion Gap 10 mmol/L (4-12); Blood Urea Nitrogen 39 mg/dL (7-17); Calcium 7.9 mg/dL (8.4-10.2); Carbon Dioxide 24 mmol/L (22-30); Chloride 107 mmol/L (98-107); Estimated CRCL calculation 18 ml/min; Estimated Glomerular Filt Rate 28; Glucose 82 mg/dL (65-110); Magnesium 2.3 mg/dL (1.6-2.3); Potassium 3.9 mmol/L (3.4-5.0); Sodium 141 mmol/L (137-145)
[2024-09-13] MEDS: MAGNESIUM OXIDE 400 MG TABLET PO (09:23)
[2024-09-13] MEDS: ASCORBIC ACID 500 MG TABLET PO (09:23)
[2024-09-13] MEDS: oxyBUTYnin CHLORIDE XL 5 MG TAB.ER.24 10 MG PO (09:23)
[2024-09-13] MEDS: CHOLECALCIFEROL 1,000 UNITS TABLET 2000 UNITS PO (09:23)
[2024-09-13] MEDS: amLODIPine BESYLATE 5 MG TABLET PO ×2 (09:24→20:52)
[2024-09-13] MEDS: FERROUS SULFATE 325 MG TABLET DR BY MOUTH (09:24)
[2024-09-13] MEDS: FAMOTIDINE 20 MG TABLET PO (09:24)
[2024-09-13] MEDS: FUROSEMIDE INJ 40 MG/4 ML VIAL IV PUSH (09:24)
[2024-09-13] MEDS: CYANOCOBALAMIN 1,000 MCG TABLET 1000 MCG PO (09:24)
[2024-09-13] MEDS: OMEGA 3 POLYUNSAT FATTY ACIDS 1 GM CAP PO (09:24)
[2024-09-13] MEDS: hydrALAZINE HCL 50 MG TABLET PO ×3 (09:24→16:37)
[2024-09-13] MEDS: carvediloL 12.5 MG TABLET PO ×2 (09:24→20:52)
--- NOTE | 2024-09-13 13:18 | P.PNIM_ITS ---
Progress Note: A&P Assessment and Plan (1) CHF exacerbation: Qualifiers: Heart failure type: unspecified Qualified Code(s): I50.9 - Heart failure, unspecified Code(s): I50.9 - Heart failure, unspecified Status: Acute (2) Bilateral pleural effusion: Code(s): J90 - Pleural effusion, not elsewhere classified Status: Inactive (3) Diastolic dysfunction: Code(s): I51.89 - Other ill-defined heart diseases Status: Acute (4) Hyperkalemia: Code(s): E87.5 - Hyperkalemia Status: Acute (5) Normocytic anemia: Code(s): D64.9 - Anemia, unspecified Status: Acute (6) Poorly-controlled hypertension: Code(s): I10 - Essential (primary) hypertension Status: Acute (7) Metastatic adenocarcinoma: Code(s): C79.9 - Secondary malignant neoplasm of unspecified site Status: Acute (8) Chronic GERD: Code(s): K21.9 - Gastro-esophageal reflux disease without esophagitis Status: Chronic Plan This is an 84-year-old female who presented to the emergency department via private vehicle from home with complaints of shortness of breath. She reports a gradual onset of lower extremity edema and increasing shortness of breath on lesser and lesser exertion over the past 2 weeks or so. She complains of tightness throughout her chest which ?seems to be getting worse every day and a cough which is occasionally productive of yellow-colored phlegm. Her appetite has not been great and she reports early satiety for an unknown length of time. She denies fever, chills, sweats, syncope, near syncope, sore throat, pleuritic pain, palpitations, orthopnea, paroxysmal nocturnal dyspnea, epigastric and abdominal pain, bloating, belching, dysphagia, calf pain, hematochezia, and melena. In the ED: Vital signs on arrival include a temperature of 97.9?, blood pressure 170/70, pulse 66, respiratory 22, SpO2 93% on room air. Labs were significant for WBC count 8.7, hemoglobin 9.4, D-dimer 3.94, sodium 140, potassium 6.1, chloride 114, carbon dioxide 15, BUN 44, creatinine 1.56, troponin less than 0.012, proBNP 4680, total protein 6.0, albumin 3.2. Chest CTA showed large bilateral pleural effusions, left greater than right, additional findings suggestive of congestive heart failure, and was negative for pulmonary embolism. She was given furosemide 40 mg IV and calcium gluconate/insulin with dextrose/sodium bicarbonate for hyperkalemia and she is being admitted in this setting for further treatment and evaluation. acute on chronic diastolic heart failure continue iv diuresis. rpeat echo with ef 60-65%, grade 1 diastolic dysfunction, mild to mod MR, mild pulm HTN. Increase Lasix to 40 mg b.i.d. continue diuresis repeat chest x-ray today. Will hold diuresis hyperkalemia resolved on Lokelma bilateral pleural effusions she had increasing CA [address] chest abdomen pelvis with no acute findings. Discussed thoracentesis for further evaluation. Agreeable and underwent thoracentesis removal of 500 cc of pleural fluid. Follow pleural fluid analysis hypertension: poorly controlled at home. Increase amlodipine to 10 mg daily anemia: Stable counts. FOBT came back positive. No drop in H& H. Also takes iron pills. 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 Leg pain is better today. Breathing is stable. Blood pressure reviewed. Review of Systems Review of Systems: All systems reviewed & are unremarkable except as noted in HPI and below Exam Narrative: Elderly frail Patient is comfortable, NAD HEENT: eyes are clear and none icteric LUNGS: Diminishing air entry bilaterally HEART: RR S1S2 ABD: BS+, Soft and nontender Lower extremities: no edema SKIN: nonjaundiced Neuro: grossly intact. Objective Data Vital Signs Vital Signs: Vital Signs - 24 hr 09/12/24 13:35 09/12/24 14:00 09/12/24 16:00 Temperature 97.7 F Pulse Rate 72 74 Respiratory Rate 20 Blood Pressure 143/81 H Pulse Oximetry 98 Oxygen Delivery Room Air 09/12/24 16:00 09/12/24 16:00 09/12/24 18:00 Temperature Pulse Rate 74 74 Respiratory Rate Blood Pressure Pulse Oximetry Oxygen Delivery Room Air 09/12/24 20:00 09/12/24 20:00 09/12/24 21:05 Temperature 98.2 F Pulse Rate 79 76 79 Respiratory Rate 18 18 Blood Pressure 159/63 H Pulse Oximetry 97 97 Oxygen Delivery Room Air 09/12/24 22:00 09/12/24 22:28 09/12/24 23:15 Temperature Pulse Rate 71 69 71 Respiratory Rate 18 Blood Pressure Pulse Oximetry 98 Oxygen Delivery Room Air 09/12/24 23:54 09/13/24 00:00 09/13/24 02:00 Temperature 98.1 F Pulse Rate 71 72 70 Respiratory Rate 18 Blood Pressure 155/65 H Pulse Oximetry 98 Oxygen Delivery 09/13/24 04:00 09/13/24 04:00 09/13/24 04:00 Temperature 98.0 F Pulse Rate 67 67 65 Respiratory Rate 18 18 Blood Pressure 160/57 H Pulse Oximetry 96 96 Oxygen Delivery Room Air 09/13/24 06:00 09/13/24 08:00 09/13/24 08:00 Temperature 98.9 F Pulse Rate 65 69 74 Respiratory Rate 14 Blood Pressure 151/56 H Pulse Oximetry 97 Oxygen Delivery 09/13/24 10:09 Temperature Pulse Rate Respiratory Rate Blood Pressure Pulse Oximetry Oxygen Delivery Room Air Intake/Output Intake/Output: Intake & Output 09/10/24 09/11/24 09/12/24 09/13/24 23:59 23:59 23:59 23:59 Intake Total 883 623 0722 250 Output Total 1800 1100 1901 600 Balance -1210 -460 -291 -350 Meds/Results Medications: Active Medications Generic Name Dose Route Start Last Admin Trade Name Freq PRN Reason Stop Dose Admin Acetaminophen 650 mg 09/09/24 23:09 09/12/24 17:20 Acetaminophen 325 Mg Tablet PO 650 mg Q6H PRN Administration Mild Pain (1-3) or Fever Albuterol 2 puff 09/10/24 02:37 Albuterol Sulfate (*Sp) Aerosol 1 Puff INHALATION Q4H PRN shortness of breath or wheezing Alprazolam 0.25 mg 09/10/24 02:37 09/11/24 20:38 Alprazolam (*Crx) 0.25 Mg Tablet PO 0.25 mg TID PRN Administration anxiety Amlodipine Besylate 5 mg 09/12/24 21:00 09/13/24 09:24 Amlodipine Besylate 5 Mg Tablet PO 5 mg Q12H MIS Administration Artificial Tears 1 drop 09/10/24 02:47 09/10/24 08:11 Artificial Tears Ophth Soln 15 Ml Bottle EACH EYE 1 drop Q6H PRN Administration Pain DRY EYE Artificial Tears 1 drop 09/10/24 21:00 09/12/24 22:28 Artificial Tears Ophth Soln 15 Ml Bottle EACH EYE Not Given HS MIS Ascorbic Acid 500 mg 09/10/24 09:00 09/13/24 09:23 Ascorbic Acid 500 Mg Tablet PO 500 mg DAILY MIS Administration Aspirin 81 mg 09/10/24 21:00 09/12/24 22:28 Aspirin 81 Mg Enteric Tablet PO 81 mg HS MIS Administration Carvedilol 12.5 mg 09/10/24 09:00 09/13/24 09:24 Carvedilol 12.5 Mg Tablet PO 12.5 mg Q12HR MIS Administration Cyanocobalamin 1,000 mcg 09/10/24 09:00 09/13/24 09:24 Cyanocobalamin 1,000 Mcg Tablet PO 1,000 mcg DAILY MIS Administration Famotidine 20 mg 09/10/24 09:00 09/13/24 09:24 Famotidine 20 Mg Tablet PO 20 mg DAILY MIS Administration Ferrous Sulfate 325 mg 09/10/24 08:00 09/13/24 09:24 Ferrous Sulfate [address] BY MOUTH 325 mg DAILY@0800 MIS Administration Fish Oil 1 gm 09/10/24 09:00 09/13/24 09:24 [place] 3 Polyunsat Fatty Acids 1 Gm Cap PO 1 gm DAILY MIS Administration Furosemide 40 mg 09/11/24 09:00 09/13/24 09:24 Furosemide Inj 40 Mg/4 Ml Vial IV PUSH 40 mg BID MIS Administration Hydralazine HCl 50 mg 09/10/24 08:00 09/13/24 12:56 Hydralazine Hcl 50 Mg Tablet PO 50 mg TIDWM MIS Administration Hydralazine HCl 10 mg 09/10/24 11:15 09/10/24 20:25 Hydralazine 10 Mg Tablet PO 10 mg QID PRN Administration SBP >180 Lidocaine/Prilocaine 1 each 09/10/24 02:37 Lidocaine/Prilocaine Cream 2.5-2.5% Tube TOPICAL ONCE PRN port/catheter care Magnesium Oxide 400 mg 09/10/24 09:00 09/13/24 09:23 Magnesium Oxide 400 Mg Tablet PO 400 mg DAILY MIS Administration Oxybutynin Chloride 10 mg 09/10/24 09:00 09/13/24 09:23 Oxybutynin Chloride Xl 5 Mg Tab.Er.24 PO 10 mg DAILY MIS Administration Pantoprazole Sodium 40 mg 09/10/24 21:00 09/12/24 22:28 Pantoprazole 40 Mg Tablet PO 40 mg QHS MIS Administration Pravastatin Sodium 40 mg 09/10/24 21:00 09/12/24 22:28 Pravastatin Sodium 20 Mg Tablet PO 40 mg QHS MIS Administration Psyllium Hydrophilic Mucilloid 1 packet 09/10/24 02:37 09/10/24 09:00 Psyllium Powder Packet PO 1 packet DAILY PRN Administration Constipation Vitamin D 2,000 units 09/10/24 09:00 09/13/24 09:23 Cholecalciferol 1,000 Units Tablet PO 2,000 units DAILY MIS Administration Radiology Results: ITS Impressions Chest CTA 09/09/24 20:14 IMPRESSION: No pulmonary embolus. No thoracic aortic dissection. Large bilateral pleural effusions, left greater than right. Additional findings suggesting congestive failure. Chest X-Ray 09/11/24 15:10 IMPRESSION: Left basilar atelectasis versus pneumonia. Thoracentesis Ultrasound 09/11/24 16:01 IMPRESSION: 1. Successful ultrasound-guided thoracentesis yielding 500 mL of yandy-colored fluid. Labs Labs: Laboratory Results - last 24 hr 09/12/24 09/13/24 13:42 05:05 WBC 6.7 RBC 3.16 L Hgb 9.5 L Hct 30.3 L MCV 95.9 MCH 30.1 MCHC 31.4 L RDW 16.5 H Plt Count 286 MPV 8.4 Sodium 141 Potassium 3.9 Chloride 107 Carbon Dioxide 24 Anion Gap 10 BUN 39 H Creatinine 1.73 H Estim Creat Clear Calc 18 Estimated GFR 28 L Glucose 82 Calcium 7.9 L Magnesium 2.3 Stl Occult Blood (IFOB) Positive H
[2024-09-13] MEDS: PANTOPRAZOLE 40 MG TABLET PO (20:52)
[2024-09-13] MEDS: PRAVASTATIN SODIUM 20 MG TABLET 40 MG PO (20:52)
[2024-09-13] MEDS: ASPIRIN 81 MG ENTERIC TABLET PO (20:53)
[2024-09-13] MEDS: ARTIFICIAL TEARS OPHTH SOLN 15 ML BOTTLE 1 DROP EACH EYE (20:53)
[2024-09-13] MEDS: ACETAMINOPHEN 325 MG TABLET 650 MG PO (21:25)
[2024-09-14] VITALS (16 sets, daily range): BP systolic 138–154; BP diastolic 56–62; PULSE 61–79; RESP 18–20; TEMP 36.4–36.8; O2SAT 95–98
[2024-09-14] MEDS: hydrALAZINE HCL 50 MG TABLET PO ×3 (01:00→18:14)
[2024-09-14 04:37] LABS: Hematocrit 31.1 % (37.0-47.0); Hemoglobin 9.5 g/dL (12.0-15.0); Mean Corpuscular HGB Conc 30.5 g/dl (32-36); Mean Corpuscular Hemoglobin 30.5 pg (26-34); Mean Platelet Volume 8.6 fl (7.4-10.4); Platelet Count Result 288 k/mm3 (150-375); Red Blood Count 3.11 M/mm3 (4.2-5.4); Red Cell Distribution Width 16.5 % (11.5-14.5); White Blood Count 6.6 K/mm3 (4.5-10.0)
[2024-09-14 04:45] LABS: Alanine Aminotransferase 12 U/L (6-35); Albumin Level 2.7 g/dL (3.5-5.1); Alkaline Phosphatase 80 U/L (38-126); Anion Gap 8 mmol/L (4-12); Aspartate Amino Transferase 19 U/L (14-36); Bilirubin,Total 0.6 mg/dL (0.2-1.3); Blood Urea Nitrogen 36 mg/dL (7-17); Carbon Dioxide 24 mmol/L (22-30); Chloride 108 mmol/L (98-107); Estimated CRCL calculation 19 ml/min; Estimated Glomerular Filt Rate 30; Glucose 84 mg/dL (65-110); Magnesium 2.3 mg/dL (1.6-2.3); Potassium 3.8 mmol/L (3.4-5.0); Sodium 140 mmol/L (137-145)
[2024-09-14] MEDS: PSYLLIUM POWDER PACKET 1 PACKET PO (06:49)
[2024-09-14] MEDS: ASCORBIC ACID 500 MG TABLET PO (09:46)
[2024-09-14] MEDS: oxyBUTYnin CHLORIDE XL 5 MG TAB.ER.24 10 MG PO (09:46)
[2024-09-14] MEDS: amLODIPine BESYLATE 5 MG TABLET PO ×2 (09:47→21:58)
[2024-09-14] MEDS: carvediloL 12.5 MG TABLET PO ×2 (09:47→21:58)
[2024-09-14] MEDS: FAMOTIDINE 20 MG TABLET PO (09:47)
[2024-09-14] MEDS: CYANOCOBALAMIN 1,000 MCG TABLET 1000 MCG PO (09:47)
[2024-09-14] MEDS: OMEGA 3 POLYUNSAT FATTY ACIDS 1 GM CAP PO (09:47)
[2024-09-14] MEDS: ACETAMINOPHEN 325 MG TABLET 650 MG PO ×2 (09:48→21:58)
[2024-09-14] MEDS: CHOLECALCIFEROL 1,000 UNITS TABLET 2000 UNITS PO (09:48)
[2024-09-14] MEDS: MAGNESIUM OXIDE 400 MG TABLET PO (09:48)
[2024-09-14] MEDS: FERROUS SULFATE 325 MG TABLET DR BY MOUTH (09:55)
--- NOTE | 2024-09-14 14:55 | P.PNIM_ITS ---
Progress Note: A&P Assessment and Plan (1) CHF exacerbation: Qualifiers: Heart failure type: unspecified Qualified Code(s): I50.9 - Heart failure, unspecified Code(s): I50.9 - Heart failure, unspecified Status: Acute (2) Bilateral pleural effusion: Code(s): J90 - Pleural effusion, not elsewhere classified Status: Inactive (3) Diastolic dysfunction: Code(s): I51.89 - Other ill-defined heart diseases Status: Acute (4) Hyperkalemia: Code(s): E87.5 - Hyperkalemia Status: Acute (5) Normocytic anemia: Code(s): D64.9 - Anemia, unspecified Status: Acute (6) Poorly-controlled hypertension: Code(s): I10 - Essential (primary) hypertension Status: Acute (7) Metastatic adenocarcinoma: Code(s): C79.9 - Secondary malignant neoplasm of unspecified site Status: Acute (8) Chronic GERD: Code(s): K21.9 - Gastro-esophageal reflux disease without esophagitis Status: Chronic Plan This is an 84-year-old female who presented to the emergency department via private vehicle from home with complaints of shortness of breath. She reports a gradual onset of lower extremity edema and increasing shortness of breath on lesser and lesser exertion over the past 2 weeks or so. She complains of tightness throughout her chest which ?seems to be getting worse every day and a cough which is occasionally productive of yellow-colored phlegm. Her appetite has not been great and she reports early satiety for an unknown length of time. She denies fever, chills, sweats, syncope, near syncope, sore throat, pleuritic pain, palpitations, orthopnea, paroxysmal nocturnal dyspnea, epigastric and abdominal pain, bloating, belching, dysphagia, calf pain, hematochezia, and melena. In the ED: Vital signs on arrival include a temperature of 97.9?, blood pressure 170/70, pulse 66, respiratory 22, SpO2 93% on room air. Labs were significant for WBC count 8.7, hemoglobin 9.4, D-dimer 3.94, sodium 140, potassium 6.1, chloride 114, carbon dioxide 15, BUN 44, creatinine 1.56, troponin less than 0.012, proBNP 4680, total protein 6.0, albumin 3.2. Chest CTA showed large bilateral pleural effusions, left greater than right, additional findings suggestive of congestive heart failure, and was negative for pulmonary embolism. She was given furosemide 40 mg IV and calcium gluconate/insulin with dextrose/sodium bicarbonate for hyperkalemia and she is being admitted in this setting for further treatment and evaluation. acute on chronic diastolic heart failure continue iv diuresis. rpeat echo with ef 60-65%, grade 1 diastolic dysfunction, mild to mod MR, mild pulm HTN. Increase Lasix to 40 mg b.i.d. continue diuresis repeat chest x-ray with improved congestion. Restart daily Lasix oral hyperkalemia resolved on Lokelma bilateral pleural effusions she had increasing CA [address] chest abdomen pelvis with no acute findings. Discussed thoracentesis for further evaluation. Agreeable and underwent thoracentesis removal of 500 cc of pleural fluid. Follow pleural fluid analysis which are still pending. hypertension: poorly controlled at home. Increase amlodipine to 10 mg daily blood pressure stable and improved anemia: Stable counts. FOBT came back positive. No drop in H& H. Also takes iron pills. 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 dyslipidemia, diastolic dysfunction, pulmonary embolism in June 2021 treated with anticoagulation for 6 months hx of bleeding gastric ulcer, chronic kidney disease stage 3 metastatic ovarian cancer status post chemotherapy in June 2022 Subjective Date/time seen: 09/14/24 14:55 Interval history: No New Complaints. No overnight events. No shortness of breath or chest pain minimal cough. Review of Systems Review of Systems: All systems reviewed & are unremarkable except as noted in HPI and below Exam Narrative: Elderly frail Patient is comfortable, NAD HEENT: eyes are clear and none icteric LUNGS: Diminishing air entry bilaterally HEART: RR S1S2 ABD: BS+, Soft and nontender Lower extremities: no edema SKIN: nonjaundiced Neuro: grossly intact. Objective Data Vital Signs Vital Signs: Vital Signs - 24 hr 09/13/24 15:36 09/13/24 16:00 09/13/24 18:00 Temperature 98.3 F Pulse Rate 70 67 80 Respiratory Rate 14 Blood Pressure 153/59 H Pulse Oximetry 96 Oxygen Delivery 09/13/24 19:39 09/13/24 20:00 09/13/24 20:50 Temperature 97.6 F Pulse Rate 75 75 Respiratory Rate 17 Blood Pressure 138/67 Pulse Oximetry 99 Oxygen Delivery Room Air 09/13/24 20:52 09/13/24 22:00 09/13/24 23:40 Temperature 97.7 F Pulse Rate 80 68 72 Respiratory Rate 18 Blood Pressure 143/58 H Pulse Oximetry 93 Oxygen Delivery 09/14/24 00:00 09/14/24 00:10 09/14/24 02:00 Temperature Pulse Rate 79 65 Respiratory Rate Blood Pressure Pulse Oximetry Oxygen Delivery Room Air 09/14/24 04:00 09/14/24 04:30 09/14/24 04:59 Temperature 98.3 F Pulse Rate 67 72 Respiratory Rate 18 Blood Pressure 154/57 H Pulse Oximetry 95 Oxygen Delivery Room Air 09/14/24 06:00 09/14/24 08:00 09/14/24 08:00 Temperature 97.5 F L Pulse Rate 61 63 63 Respiratory Rate 18 18 Blood Pressure 148/61 H Pulse Oximetry 98 98 Oxygen Delivery Room Air 09/14/24 08:00 09/14/24 09:47 09/14/24 10:00 Temperature Pulse Rate 63 63 63 Respiratory Rate Blood Pressure Pulse Oximetry Oxygen Delivery 09/14/24 12:00 09/14/24 12:00 09/14/24 12:00 Temperature 97.5 F L Pulse Rate 65 63 63 Respiratory Rate 20 18 Blood Pressure 149/62 H Pulse Oximetry 98 98 Oxygen Delivery Room Air 09/14/24 14:00 Temperature Pulse Rate 63 Respiratory Rate Blood Pressure Pulse Oximetry Oxygen Delivery Intake/Output Intake/Output: Intake & Output 09/11/24 09/12/24 09/13/24 09/14/24 23:59 23:59 23:59 23:59 Intake Total 640 1610 1590 840 Output Total 1100 1901 1250 500 Balance -460 -291 340 340 Meds/Results Medications: Active Medications Generic Name Dose Route Start Last Admin Trade Name Freq PRN Reason Stop Dose Admin Acetaminophen 650 mg 09/09/24 23:09 09/14/24 09:48 Acetaminophen 325 Mg Tablet PO 650 mg Q6H PRN Administration Mild Pain (1-3) or Fever Albuterol 2 puff 09/10/24 02:37 Albuterol Sulfate (*Sp) Aerosol 1 Puff INHALATION Q4H PRN shortness of breath or wheezing Alprazolam 0.25 mg 09/10/24 02:37 09/11/24 20:38 Alprazolam (*Crx) 0.25 Mg Tablet PO 0.25 mg TID PRN Administration anxiety Amlodipine Besylate 5 mg 09/12/24 21:00 09/14/24 09:47 Amlodipine Besylate 5 Mg Tablet PO 5 mg Q12H MIS Administration Artificial Tears 1 drop 09/10/24 02:47 09/10/24 08:11 Artificial Tears Ophth Soln 15 Ml Bottle EACH EYE 1 drop Q6H PRN Administration Pain DRY EYE Artificial Tears 1 drop 09/10/24 21:00 09/13/24 20:53 Artificial Tears Ophth Soln 15 Ml Bottle EACH EYE 1 drop HS MIS Administration Ascorbic Acid 500 mg 09/10/24 09:00 09/14/24 09:46 Ascorbic Acid 500 Mg Tablet PO 500 mg DAILY MIS Administration Aspirin 81 mg 09/10/24 21:00 09/13/24 20:53 Aspirin 81 Mg Enteric Tablet PO 81 mg HS MIS Administration Carvedilol 12.5 mg 09/10/24 09:00 09/14/24 09:47 Carvedilol 12.5 Mg Tablet PO 12.5 mg Q12HR MIS Administration Cyanocobalamin 1,000 mcg 09/10/24 09:00 09/14/24 09:47 Cyanocobalamin 1,000 Mcg Tablet PO 1,000 mcg DAILY MIS Administration Famotidine 20 mg 09/10/24 09:00 09/14/24 09:47 Famotidine 20 Mg Tablet PO 20 mg DAILY MIS Administration Ferrous Sulfate 325 mg 09/10/24 08:00 09/14/24 09:55 Ferrous Sulfate [address] BY MOUTH 325 mg DAILY@0800 MIS Administration Fish Oil 1 gm 09/10/24 09:00 09/14/24 09:47 [place] 3 Polyunsat Fatty Acids 1 Gm Cap PO 1 gm DAILY MIS Administration Furosemide 40 mg 09/11/24 09:00 09/13/24 09:24 Furosemide Inj 40 Mg/4 Ml Vial IV PUSH 40 mg BID MIS Administration Hydralazine HCl 50 mg 09/10/24 08:00 09/14/24 09:46 Hydralazine Hcl 50 Mg Tablet PO 50 mg TIDWM MIS Administration Hydralazine HCl 10 mg 09/10/24 11:15 09/10/24 20:25 Hydralazine 10 Mg Tablet PO 10 mg QID PRN Administration SBP >180 Lidocaine/Prilocaine 1 each 09/10/24 02:37 Lidocaine/Prilocaine Cream 2.5-2.5% Tube TOPICAL ONCE PRN port/catheter care Magnesium Oxide 400 mg 09/10/24 09:00 09/14/24 09:48 Magnesium Oxide 400 Mg Tablet PO 400 mg DAILY MIS Administration Oxybutynin Chloride 10 mg 09/10/24 09:00 09/14/24 09:46 Oxybutynin Chloride Xl 5 Mg Tab.Er.24 PO 10 mg DAILY MIS Administration Pantoprazole Sodium 40 mg 09/10/24 21:00 09/13/24 20:52 Pantoprazole 40 Mg Tablet PO 40 mg QHS MIS Administration Pravastatin Sodium 40 mg 09/10/24 21:00 09/13/24 20:52 Pravastatin Sodium 20 Mg Tablet PO 40 mg QHS MIS Administration Psyllium Hydrophilic Mucilloid 1 packet 09/10/24 02:37 09/14/24 06:49 Psyllium Powder Packet PO 1 packet DAILY PRN Administration Constipation Vitamin D 2,000 units 09/10/24 09:00 09/14/24 09:48 Cholecalciferol 1,000 Units Tablet PO 2,000 units DAILY MIS Administration Radiology Results: ITS Impressions Chest CTA 09/09/24 20:14 IMPRESSION: No pulmonary embolus. No thoracic aortic dissection. Large bilateral pleural effusions, left greater than right. Additional findings suggesting congestive failure. Thoracentesis Ultrasound 09/11/24 16:01 IMPRESSION: 1. Successful ultrasound-guided thoracentesis yielding 500 mL of yandy-colored fluid. Chest X-Ray 09/13/24 13:52 IMPRESSION: Mild pulmonary vascular congestion with small bilateral pleural effusions, left greater than right. Labs Labs: Laboratory Results - last 24 hr 09/14/24 04:15 WBC 6.6 RBC 3.11 L Hgb 9.5 L Hct 31.1 L MCV 100.0 MCH 30.5 MCHC 30.5 L RDW 16.5 H Plt Count 288 MPV 8.6 Sodium 140 Potassium 3.8 Chloride 108 H Carbon Dioxide 24 Anion Gap 8 BUN 36 H Creatinine 1.62 H Estim Creat Clear Calc 19 Estimated GFR 30 L Glucose 84 Calcium 8.0 L Magnesium 2.3 Total Bilirubin 0.6 AST 19 ALT 12 Alkaline Phosphatase 80 Total Protein 6.0 L Albumin 2.7 L
--- NOTE | 2024-09-14 17:21 | P.CONONC_ITS ---
Assessment and Plan Assessment and plan (1) Metastatic adenocarcinoma: Code(s): C79.9 - Secondary malignant neoplasm of unspecified site Status: Acute Assessment and Plan: Metastatic ovarian/peritoneal carcinoma status post neoadjuvant chemotherapy then debulking surgery with total hysterectomy, BSO and total omentectomy done in April 2022. Patient is currently on maintenance treatment with Avastin. Labs showed increase in the CA 125 now up to 948. Chest CTA showed bilateral pleural effusion. Thoracentesis was performed and cytology is pending. Surveillance CT scan was already ordered for September. I will change next CT scan ordered to the PET scan as an outpatient and will follow-up in the office for further management based on the PET scan finding and cytology report from pleural fluid. She will follow-up in the office. 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 Patient received chemotherapy with carboplatin and Taxol completed 4 cycles in February 2022. Patient underwent robotic complete tumor debulking, total hysterectomy, BSO and total omentectomy on May 04 2022. Patient is currently on maintenance treatment is a with Avastin. She came into the hospital with shortness of breath. Chest CTA done on September 09 showed no evidence of PE there was large bilateral pleural effusion additional findings suggestive of congestive heart failure. Thoracentesis with removal of 500 cc of fluid was performed from the left lung on September 11. Cytology is pending. She is already feeling better with improvement in the breathing. CA 125 was elevated at 948 on August 27 and pending from this admission. He denies any other complaints. Review of Systems 2 Review of Systems: Review of system as per HPI otherwise negative PMFSH Past Medical History Medical History (Updated 09/09/24 @ 23:04 by Naomy Prabhakar PA-C) Diastolic dysfunction Bleeding ulcer Pulmonary emboli (06/2021) Anxiety Anemia Overactive bladder Ovarian cancer Status post surgery and chemotherapy, currently on maintenance treatment with Avastin per Dr. Mosher Chronic GERD Osteoarthritis Hyperlipidemia Dyslipidemia Surgical History Surgical History (Updated 09/09/24 @ 22:48 by Naomy Prabhakar PA-C) History of appendectomy History of permanent cardiac pacemaker placement Biotronik pacemaker for heart block History of cataract surgery (2023) History of hysterectomy for cancer (04/2022) Status post robotic complete tumor debulking, total hysterectomy, bilateral salpingo oophorectomy, bilateral ureterolysis, and total omentectomy History of hemorrhoidectomy History of colon resection Family History Family History Father Cerebrovascular accident, Onset Age: 88 Mother Family history of arthritis, Onset Age: 85 Diverticulitis Social History Social History (Updated 09/09/24 @ 22:49 by Naomy Prabhakar PA-C) Social History: Surrogate medical decision maker: Darwin Wells, spouse. Code status: Full code. Smoking status: Never smoker Second hand tobacco smoke exposure: No Alcohol intake: never Substance use: never Substance use type: does not use Do You Feel Safe in your Home?: Yes Lack of Transportation: No Lack of Food: Never True Current Housing: I Have Housing Concerned About Future Housing: No Difficulty Paying Gas/Electric Bills: No Difficulty Paying for Meds: No Currently Unemployed: No Education: High School Diploma/GED Difficulty w/ Childcare or Family Care: No Living arrangements: with family Additional living arrangements comments: Lives with spouse in [place]. Occupation/Education: retired Spiritual care concerns: No Meds Home Medications and Allergies Home Medications ?Medication ?Instructions ?Recorded ?Confirmed ?Type omega 2-dyw-dbl-fish oil 300 1 cap PO DAILY 07/21/21 09/10/24 History mg-1,000 mg capsule (Fish Oil) psyllium husk 3.4 gram/5.4 gram 2 tsp PO DAILY PRN Constipation 09/25/21 09/10/24 History oral powder (Metamucil) cyanocobalamin (vitamin B-12) 1,000 mcg PO DAILY #30 caps 12/05/21 09/10/24 Rx 1,000 mcg capsule ascorbate calcium (vitamin C) 500 500 mg PO DAILY 04/06/22 09/10/24 History mg tablet lidocaine-prilocaine 2.5 %-2.5 % 1 applic topical ONCE PRN 11/23/22 09/10/24 History topical cream port/catheter care magnesium 200 mg tablet 400 mg PO DAILY 11/23/22 09/10/24 History ondansetron 8 mg disintegrating 8 mg PO Q8H PRN Nausea 11/23/22 09/10/24 History tablet cholecalciferol (vitamin D3) 50 50 mcg PO DAILY 03/01/23 09/10/24 History mcg (2,000 unit) capsule albuterol sulfate 90 mcg/actuation 2 inh inhalation Q4H PRN shortness 09/18/23 09/10/24 Rx aerosol inhaler of breath or wheezing #6.7 grams alprazolam 0.25 mg tablet 0.25 mg PO TID PRN anxiety #90 tabs 09/18/23 09/10/24 Rx carboxymethylcellulose 0.5 1 drp ophthalmic (eye) Q6H PRN Pain 10/17/23 09/10/24 History %-glycerin 0.9 % (PF) eye drops (Refresh Relieva PF) carboxymethylcellulose 1 1 drp EACH EYE HS 10/17/23 09/10/24 History %-glycerin 0.9 % eye gel drops (Refresh Optive) acetaminophen 650 mg 650 mg PO Q12H PRN pain 02/20/24 09/10/24 History tablet,extended release (Tylenol 8 Hour) celecoxib 200 mg capsule (Celebrex) 200 mg PO DAILY #90 caps 05/11/24 09/10/24 Rx amlodipine 5 mg tablet 5 mg PO DAILY #90 tabs 06/03/24 09/09/24 Rx oxybutynin chloride 10 mg 10 mg PO DAILY #90 tabs 08/03/24 09/10/24 Rx tablet,extended release 24 hr pravastatin 40 mg tablet 40 mg PO QHS #90 tabs 08/05/24 09/10/24 Rx aspirin 81 mg tablet,delayed 81 mg PO HS 08/06/24 09/10/24 History release (Adult Low Dose Aspirin) loperamide 2 mg capsule 2 mg PO QID PRN loose stool 08/06/24 09/10/24 History (Anti-Diarrheal (loperamide)) pantoprazole 40 mg tablet,delayed 40 mg PO QHS #90 tabs 08/06/24 09/10/24 Rx release hydralazine 50 mg tablet 50 mg PO TID #60 tabs 08/18/24 09/10/24 Rx famotidine 20 mg tablet 20 mg PO DAILY #90 tabs 08/21/24 09/10/24 Rx carvedilol 12.5 mg tablet 12.5 mg PO Q12H #60 tabs 09/03/24 09/10/24 Rx ferrous sulfate 325 mg (65 mg 325 mg PO DAILY 09/10/24 09/10/24 History iron) tablet Allergies Allergy/AdvReac Type Severity Reaction Status Date / Time No Known Allergies Allergy Verified 09/10/24 00:28 Vital Signs Vital Signs - 24 hr 09/13/24 18:00 09/13/24 19:39 09/13/24 20:00 Temperature 36.4 C Pulse Rate 80 75 75 Respiratory Rate 17 Blood Pressure 138/67 Pulse Oximetry 99 Oxygen Delivery 09/13/24 20:50 09/13/24 20:52 09/13/24 22:00 Temperature Pulse Rate 80 68 Respiratory Rate Blood Pressure Pulse Oximetry Oxygen Delivery Room Air 09/13/24 23:40 09/14/24 00:00 09/14/24 00:10 Temperature 36.5 C Pulse Rate 72 79 Respiratory Rate 18 Blood Pressure 143/58 H Pulse Oximetry 93 Oxygen Delivery Room Air 09/14/24 02:00 09/14/24 04:00 09/14/24 04:30 Temperature Pulse Rate 65 67 Respiratory Rate Blood Pressure Pulse Oximetry Oxygen Delivery Room Air 09/14/24 04:59 09/14/24 06:00 09/14/24 08:00 Temperature 36.8 C 36.4 C L Pulse Rate 72 61 63 Respiratory Rate 18 18 Blood Pressure 154/57 H 148/61 H Pulse Oximetry 95 98 Oxygen Delivery 09/14/24 08:00 09/14/24 08:00 09/14/24 09:47 Temperature Pulse Rate 63 63 63 Respiratory Rate 18 Blood Pressure Pulse Oximetry 98 Oxygen Delivery Room Air 09/14/24 10:00 09/14/24 12:00 09/14/24 12:00 Temperature 36.4 C L Pulse Rate 63 65 63 Respiratory Rate 20 18 Blood Pressure 149/62 H Pulse Oximetry 98 98 Oxygen Delivery Room Air 09/14/24 12:00 09/14/24 14:00 09/14/24 16:00 Temperature 36.4 C Pulse Rate 63 63 63 Respiratory Rate 18 Blood Pressure 146/56 H Pulse Oximetry 98 Oxygen Delivery Exam 2 Narrative: Lungs are clear to auscultation bilaterally Cardiovascular regular rate rhythm no murmurs Abdomen soft nontender nondistended Extremities no edema Results Labs 09/14/24 04:15 09/14/24 04:15 Labs: Short CBC 09/14/24 Range/Units 04:15 WBC 6.6 (4.5-10.0) K/mm3 Hgb 9.5 L (12.0-15.0) g/dL Hct 31.1 L (37.0-47.0) % Plt Count 288 (150-375) k/mm3 BMP 09/14/24 04:15 Sodium 140 Potassium 3.8 Chloride 108 H Carbon Dioxide 24 BUN 36 H Creatinine 1.62 H Glucose 84 Calcium 8.0 L Liver Function 09/14/24 Range/Units 04:15 Total Bilirubin 0.6 (0.2-1.3) mg/dL AST 19 (14-36) U/L ALT 12 (6-35) U/L Alkaline Phosphatase 80 (38-126) U/L Albumin 2.7 L (3.5-5.1) g/dL
[2024-09-14 21:43] LABS: CA-125 769 U/mL (<35)
[2024-09-14] MEDS: FLUTICASONE PROPIONATE 0.05% NA SPR 16 GM BTL (*BKC) 1 SPRAY NASAL (21:57)
[2024-09-14] MEDS: PRAVASTATIN SODIUM 20 MG TABLET 40 MG PO (21:58)
[2024-09-14] MEDS: ASPIRIN 81 MG ENTERIC TABLET PO (21:59)
[2024-09-14] MEDS: PANTOPRAZOLE 40 MG TABLET PO (21:59)
[2024-09-14] MEDS: ARTIFICIAL TEARS OPHTH SOLN 15 ML BOTTLE 1 DROP EACH EYE (21:59)
[2024-09-15] VITALS (9 sets, daily range): BP systolic 117–142; BP diastolic 50–60; PULSE 61–77; RESP 17–18; TEMP 36.3–37; O2SAT 90–99
[2024-09-15 04:58] LABS: Hematocrit 28.9 % (37.0-47.0); Hemoglobin 9.1 g/dL (12.0-15.0); Mean Corpuscular HGB Conc 31.5 g/dl (32-36); Mean Corpuscular Hemoglobin 30.2 pg (26-34); Mean Platelet Volume 8.6 fl (7.4-10.4); Platelet Count Result 298 k/mm3 (150-375); Red Blood Count 3.01 M/mm3 (4.2-5.4); White Blood Count 6.2 K/mm3 (4.5-10.0)
[2024-09-15 05:13] LABS: Anion Gap 6 mmol/L (4-12); Blood Urea Nitrogen 42 mg/dL (7-17); Calcium 8.1 mg/dL (8.4-10.2); Carbon Dioxide 24 mmol/L (22-30); Chloride 108 mmol/L (98-107); Estimated CRCL calculation 19 ml/min; Estimated Glomerular Filt Rate 31; Glucose 85 mg/dL (65-110); Magnesium 2.4 mg/dL (1.6-2.3); Potassium 4.1 mmol/L (3.4-5.0); Sodium 138 mmol/L (137-145)
[2024-09-15] MEDS: CHOLECALCIFEROL 1,000 UNITS TABLET 2000 UNITS PO (08:44)
[2024-09-15] MEDS: FLUTICASONE PROPIONATE 0.05% NA SPR 16 GM BTL (*BKC) 1 SPRAY NASAL (08:44)
[2024-09-15] MEDS: hydrALAZINE HCL 50 MG TABLET PO (08:45)
[2024-09-15] MEDS: FUROSEMIDE 40 MG TABLET PO (08:45)
[2024-09-15] MEDS: ASCORBIC ACID 500 MG TABLET PO (08:45)
[2024-09-15] MEDS: FAMOTIDINE 20 MG TABLET PO (08:45)
[2024-09-15] MEDS: amLODIPine BESYLATE 5 MG TABLET PO (08:45)
[2024-09-15] MEDS: carvediloL 12.5 MG TABLET PO (08:45)
[2024-09-15] MEDS: oxyBUTYnin CHLORIDE XL 5 MG TAB.ER.24 10 MG PO (08:45)
[2024-09-15] MEDS: OMEGA 3 POLYUNSAT FATTY ACIDS 1 GM CAP PO (08:45)
[2024-09-15] MEDS: FERROUS SULFATE 325 MG TABLET DR BY MOUTH (08:45)
[2024-09-15] MEDS: CYANOCOBALAMIN 1,000 MCG TABLET 1000 MCG PO (08:45)
[2024-09-15] MEDS: MAGNESIUM OXIDE 400 MG TABLET PO (08:45)
--- NOTE | 2024-09-15 11:08 | PM.DS ---
DS: Admitting Diagnosis Discharge Date 09/15/2024 Admitting Diagnosis Shortness of breath DS: Discharge Diagnosis Discharge Diagnosis (1) CHF exacerbation: Qualifiers: Heart failure type: unspecified Qualified Code(s): I50.9 - Heart failure, unspecified Code(s): I50.9 - Heart failure, unspecified Status: Acute (2) Bilateral pleural effusion: Code(s): J90 - Pleural effusion, not elsewhere classified Status: Inactive (3) Diastolic dysfunction: Code(s): I51.89 - Other ill-defined heart diseases Status: Acute (4) Hyperkalemia: Code(s): E87.5 - Hyperkalemia Status: Acute (5) Normocytic anemia: Code(s): D64.9 - Anemia, unspecified Status: Acute (6) Poorly-controlled hypertension: Code(s): I10 - Essential (primary) hypertension Status: Acute (7) Metastatic adenocarcinoma: Code(s): C79.9 - Secondary malignant neoplasm of unspecified site Status: Acute (8) Chronic GERD: Code(s): K21.9 - Gastro-esophageal reflux disease without esophagitis Status: Chronic DS: Summary Hospital Course Hospital Course: This is an 84-year-old female who presented to the emergency department via private vehicle from home with complaints of shortness of breath. She reports a gradual onset of lower extremity edema and increasing shortness of breath on lesser and lesser exertion over the past 2 weeks or so. She complains of tightness throughout her chest which ?seems to be getting worse every day and a cough which is occasionally productive of yellow-colored phlegm. Her appetite has not been great and she reports early satiety for an unknown length of time. She denies fever, chills, sweats, syncope, near syncope, sore throat, pleuritic pain, palpitations, orthopnea, paroxysmal nocturnal dyspnea, epigastric and abdominal pain, bloating, belching, dysphagia, calf pain, hematochezia, and melena. In the ED: Vital signs on arrival include a temperature of 97.9?, blood pressure 170/70, pulse 66, respiratory 22, SpO2 93% on room air. Labs were significant for WBC count 8.7, hemoglobin 9.4, D-dimer 3.94, sodium 140, potassium 6.1, chloride 114, carbon dioxide 15, BUN 44, creatinine 1.56, troponin less than 0.012, proBNP 4680, total protein 6.0, albumin 3.2. Chest CTA showed large bilateral pleural effusions, left greater than right, additional findings suggestive of congestive heart failure, and was negative for pulmonary embolism. She was given furosemide 40 mg IV and calcium gluconate/insulin with dextrose/sodium bicarbonate for hyperkalemia and she is being admitted in this setting for further treatment and evaluation. acute on chronic diastolic heart failure continue iv diuresis. rpeat echo with ef 60-65%, grade 1 diastolic dysfunction, mild to mod MR, mild pulm HTN. Started on Lasix to 40 mg b.i.d. continue diuresis repeat chest x-ray with improved congestion. Restart daily Lasix oral and looks euvolemic by the time of discharge hyperkalemia resolved on Lokelma bilateral pleural effusions she had increasing CA [address] chest abdomen pelvis with no acute findings. Discussed thoracentesis for further evaluation. Agreeable and underwent thoracentesis removal of 500 cc of pleural fluid. Follow pleural fluid analysis which are still pending. Cultures negative. Awaiting cytology which will be followed up by Oncology as an outpatient basis. hypertension: poorly controlled at home. Increase amlodipine to 10 mg daily blood pressure stable and improved anemia: Stable counts. FOBT came back positive. No drop in H& H. Also takes iron pills. 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 dyslipidemia, diastolic dysfunction, pulmonary embolism in June 2021 treated with anticoagulation for 6 months hx of bleeding gastric ulcer, chronic kidney disease stage 3 metastatic ovarian cancer status post chemotherapy in June 2022 Time Spent with Patient Time attestation: Total time spent providing and/or coordinating discharge services: 45 minutes Exam Narrative: Elderly frail Patient is comfortable, NAD HEENT: eyes are clear and none icteric LUNGS: Diminishing air entry bilaterally HEART: RR S1S2 ABD: BS+, Soft and nontender Lower extremities: no edema SKIN: nonjaundiced Neuro: grossly intact. DS: Data Data Completed and Pending Pending studies at discharge: Pending at discharge 09/11/24 15:16 Cytology [PTH] Routine 09/14/24 08:03 Cytology [PTH] Routine Labs on day of discharge: Labs from last 24 hours 09/15/24 09/11/24 04:11 04:22 WBC 6.2 RBC 3.01 L Hgb 9.1 L Hct 28.9 L MCV 96.0 MCH 30.2 MCHC 31.5 L RDW 16.0 H Plt Count 298 MPV 8.6 Sodium 138 Potassium 4.1 Chloride 108 H Carbon Dioxide 24 Anion Gap 6 BUN 42 H Creatinine 1.59 H Estim Creat Clear Calc 19 Estimated GFR 31 L Glucose 85 Calcium 8.1 L Magnesium 2.4 H CA 125 Antigen 769 H Preliminary micro results at discharge 09/11/24 15:10 Anaerobic Culture - Preliminary Pleural Fluid Aerobic Culture - Preliminary Imaging Radiologist's impression: ITS Impressions Chest X-Ray 09/09/24 15:44 IMPRESSION: Moderate pulmonary vascular congestion with bilateral pleural effusions and bibasilar infiltrates. Chest CTA 09/09/24 20:14 IMPRESSION: No pulmonary embolus. No thoracic aortic dissection. Large bilateral pleural effusions, left greater than right. Additional findings suggesting congestive failure. Chest X-Ray 09/10/24 18:20 IMPRESSION: Redemonstration of moderate pulmonary vascular congestion with bilateral pleural effusions and bibasilar infiltrates. Chest X-Ray 09/11/24 15:10 IMPRESSION: Left basilar atelectasis versus pneumonia. Thoracentesis Ultrasound 09/11/24 16:01 IMPRESSION: 1. Successful ultrasound-guided thoracentesis yielding 500 mL of yandy-colored fluid. Chest X-Ray 09/13/24 13:52 IMPRESSION: Mild pulmonary vascular congestion with small bilateral pleural effusions, left greater than right. Discharge Plan Discharge Attending physician on discharge: Brooks Gonzalez Consulting providers: Shiv Mosher Discharging Clinician: Brooks Gonzalez Anticipated Discharge Date/Time: 09/15/24 11:10 Patient Disposition: Home Health Service Activity: as tolerated Diet: heart healthy Discharge Instructions: Per Care Coordination, patient to discharge with [facility] ([phone]) for PT/OT and retirement services. Agency will call to arrange initial visit. Patient Instructions: Antibiotic Form, Heart Failure (DC), Heart Failure (GEN) Patient Language: Latvian Stand Alone Forms: General Discharge Information Follow-up/Referrals: Shiv Mosher MD [Physician] - Keep Reg. Scheduled Appt. Jose Varghese DO [Physician] - 2 Weeks Gina Salvador PA-C [Primary Care Provider] - 1 Week Discharge Medications: New amlodipine [Norvasc] 5 mg Tablet 5 mg PO Q12H Qty: 60 0RF furosemide 40 mg Tablet 40 mg PO DAILY Qty: 30 0RF Continued ondansetron 8 mg Tablet,Disintegrating 8 mg PO Q8H PRN (Reason: Nausea) lidocaine-prilocaine 2.5-2.5 % Cream 1 applic TOPICAL ONCE PRN (Reason: port/catheter care) magnesium 200 mg Tablet 400 mg PO DAILY cholecalciferol (vitamin D3) 50 mcg (2,000 unit) Capsule 50 mcg PO DAILY Refresh Optive 1-0.9 % Drops,Gel 1 drp EACH EYE HS Refresh Relieva PF 0.5-0.9 % Drops 1 drp OPHTHALMIC (EYE) Q6H PRN (Reason: Pain) acetaminophen [Tylenol 8 Hour] 650 mg Tablet Extended Release 650 mg PO Q12H PRN (Reason: pain) Patient Comments: . aspirin [Adult Low Dose Aspirin] 81 mg tablet,delayed release (DR/EC) 81 mg PO HS loperamide [Anti-Diarrheal (loperamide)] 2 mg capsule 2 mg PO QID PRN (Reason: loose stool) carvedilol 12.5 mg tablet 12.5 mg PO Q12H Qty: 60 5RF Rx Instructions: must administer with a meal/food albuterol sulfate 90 mcg/actuation HFA aerosol inhaler 2 inh inhalation Q4H PRN (Reason: shortness of breath or wheezing) Qty: 6.7 1RF Patient Comments: . alprazolam 0.25 mg tablet 0.25 mg PO TID PRN (Reason: anxiety) Qty: 90 0RF Patient Comments: . omega 7-cba-rij-fish oil [Fish Oil] 300-1,000 mg Capsule 1 cap PO DAILY Rx Instructions: 1000 mg two capsules daily Metamucil 3.4 gram/5.4 gram Powder 2 tsp PO DAILY PRN (Reason: Constipation) cyanocobalamin (vitamin B-12) 1,000 mcg capsule 1,000 mcg PO DAILY Qty: 30 1RF ferrous sulfate 325 mg (65 mg iron) tablet 325 mg PO DAILY ascorbate calcium (vitamin C) 500 mg tablet 500 mg PO DAILY celecoxib [Celebrex] 200 mg capsule 200 mg PO DAILY Qty: 90 1RF oxybutynin chloride 10 mg tablet extended release 24hr 10 mg PO DAILY Qty: 90 1RF pravastatin 40 mg tablet 40 mg PO QHS Qty: 90 1RF pantoprazole 40 mg tablet,delayed release (DR/EC) 40 mg PO QHS Qty: 90 1RF hydralazine 50 mg tablet 50 mg PO TID Qty: 60 5RF famotidine 20 mg tablet 20 mg PO DAILY Qty: 90 0RF Discontinued amlodipine 5 mg tablet 5 mg PO DAILY Qty: 90 2RF Other Ambulatory Orders: Basic Metabolic Panel (Routine) Timeframe: 1 Week Location: Determined by Patient Ordered By: Brooks Gonzalez Complete Blood Count with Diff (Routine) Timeframe: 1 Week Location: Determined by Patient Ordered By: Brooks Gonzalez Date of admission: 09/10/24 10:24 Primary Care Provider: Gina Salvador Admitting Provider: Caty Mathias Attending physician on admission: Caty Mathias Condition: Improved
--- NOTE | 2024-09-15 12:42 | PC.NURSE ---
Reviewed all discharge paperwork with patient and patient's spouse including medications; last dose given and next dose due. The patient and family member deny further questions at this time. Patient IV removed, cardiac exercise physiologist removed. Patient is dressed and being discharged home in personal vehicle.
[2024-09-26 19:58] LABS: Albumin Pleural Fluid 1.9 g/dL; Amylase, Pleural Fluid 16 U/L; Glucose Pleural Fluid 95 mg/dL; LDH Pleural Fluid 1156 U/L; Total Protein Pleural Fluid <3.0 g/dL
== END 2024-09-15 12:44 | disposition home health service (06) | DRG 291 ==
LOC: ANHED 17:58 → ANHIMU 20:19
PROVIDERS: Emergency Medicine; Family Medicine; Physician Assistant; Admitting Provider Hospitalist; Emergency Provider Physician Assistant; PCP Physician Assistant Medical; Visit Provider Internal Medicine
DX: I13.0 Hypertensive heart and chronic kidney disease with heart failure and stage 1 through stage 4 chronic kidney disease, or unspecified chronic kidney disease (principal); I50.33 Acute on chronic diastolic (congestive) heart failure; J91.0 Malignant pleural effusion; C80.1 Malignant (primary) neoplasm, unspecified; I34.1 Nonrheumatic mitral (valve) prolapse; N18.30 Chronic kidney disease, stage 3 unspecified; D64.9 Anemia, unspecified; E87.5 Hyperkalemia; E78.5 Hyperlipidemia, unspecified; K21.9 Gastro-esophageal reflux disease without esophagitis; K58.9 Irritable bowel syndrome, unspecified; N32.81 Overactive bladder; M19.90 Unspecified osteoarthritis, unspecified site; F41.9 Anxiety disorder, unspecified; Z20.822 Contact with and (suspected) exposure to COVID-19; Z79.82 Long term (current) use of aspirin; Z86.711 Personal history of pulmonary embolism; Z85.43 Personal history of malignant neoplasm of ovary; Z95.0 Presence of cardiac pacemaker; Z87.11 Personal history of peptic ulcer disease
CPT/HCPCS: 32555; 36415; 36600; 71045; 71046; 71275; 80048; 80053; 82042; 82150; 82274; 82607; 82728; 82746; 82805; 82945; 83540; 83550; 83615; 83735; 83880; 83986; 84157; 84311; 84443; 84478; 84484; 85018; 85025; 85027; 85380; 85610; 85730; 86304; 87070; 87075; 87205; 87637; 87641; 88108; 88305; 88342; 89051; 93005; 93306; 96374; 96375; 97110; 97161; 97165; 97530; 99285; A9270; G0378; J0612; J1815; J1940; Q9967

== ENCOUNTER 2024-09-22 14:08 | Outpatient (NON) | payer MEDICARE, SELFPAY ==
[2024-09-22 14:55] LABS: Basophils Absolute Auto 0.1 K/mm3 (0.0-0.1); Basophils Percent Auto 0.5 % (0.2-1.2); Eosinophils Absolute Auto 0.2 K/mm3 (0-0.3); Eosinophils Percent Auto 1.6 % (0-4.4); Hematocrit 31.3 % (37.0-47.0); Hemoglobin 9.6 g/dL (12.0-15.0); Immature Granulocyte Absolute 0.05 K/mm3 (0.00-0.031); Immature Granulocyte Percent A 0.4 % (0-0.5); Lymphocytes Absolute Auto 0.41 K/mm3 (0.9-3.2); Lymphocytes Percent Auto 3.2 % (18.3-44.2); Mean Corpuscular HGB Conc 30.7 g/dl (32-36); Mean Corpuscular Hemoglobin 30.4 pg (26-34); Mean Corpuscular Volume 99.1 fl (80-100); Mean Platelet Volume 8.8 fl (7.4-10.4); Monocytes Absolute Auto 0.9 K/mm3 (0.1-0.6); Monocytes Percent Auto 6.8 % (2.6-8.5); Neutrophils Absolute Auto 11.3 K/mm3 (1.3-6.7); Neutrophils Percent Auto 87.5 % (45.5-73.1); Platelet Count Result 349 k/mm3 (150-375); Red Blood Count 3.16 M/mm3 (4.2-5.4); Red Cell Distribution Width 16.2 % (11.5-14.5); White Blood Count 12.9 K/mm3 (4.5-10.0)
[2024-09-22 15:28] LABS: Anion Gap 11 mmol/L (4-12); Blood Urea Nitrogen 65 mg/dL (7-17); Calcium 8.2 mg/dL (8.4-10.2); Carbon Dioxide 17 mmol/L (22-30); Chloride 111 mmol/L (98-107); Estimated Glomerular Filt Rate 24; Glucose 100 mg/dL (65-110); Potassium 5.4 mmol/L (3.4-5.0); Sodium 139 mmol/L (137-145)
--- OUTSIDE RECORDS SUMMARY | 2024-09-22 15:32 | XMS_ITS | Clinical Summary ---
Author Organization [facility] Address [address] [place] [address] Phone Care Team Providers Care Railway Signal Electrician Name Role Phone Unavailable Primary Care Provider Unavailabl e Allergies No known active allergies Medications pravastatin (PRAVACHOL) 40 mg tablet Take 40 mg by mouth daily with supper. Active losartan (COZAAR) 50 mg tablet Take 100 mg by mouth daily. Active Fish Oil-[place]-3 Fatty Acids 300-500 mg Capsule Take by mouth. Activ e ferrous sulfate 325 mg (65 mg iron) tablet Take 325 mg by mouth daily. Active psyllium (METAMUCIL) Packet Take 1 Packet by mouth daily. Active pantoprazole (PROTONIX) 40 mg Tablet, Delayed Release (E.C.) Take 40 mg by mouth daily. Active cyanocobalami n (VITAMIN B-12) 500 mcg tablet Take 1,000 mcg by mouth daily. Active polyethylene glycol (MIRALAX) 17 gram Powder in Packet Take 1 Packet (17 Grams) by mouth 2 times daily as needed for Constipation. 12/22/19 22 Active acetaminophen (TYLENOL) 500 mg tablet Take 500 mg by mouth. Active aspirin (ECOTRIN EC) 81 mg Tablet, Delayed Release (E.C.) 01/23/20 22 Active ASCORBIC ACID, VITAMIN C, ORAL Take by mouth. Activ e potassium chloride (KLOR-CON) 10 mEq Extended Release tabletIndicat ions:Chronic anemia Take 1 Tablet (10 mEq) by mouth daily with breakfast. 30 Tablet 3 02/06/20 22 Active MAGNESIUM ORAL Take by mouth. Activ e amLODIPine (NORVASC) 10 mg tablet Starting 05/12. Take 1 Tablet (10 mg) by mouth daily. 30 Tablet 1 2 10:07 AM SSRS REPORT DEVELOPER 05/12/20 22 Active Additional Information Patient taking differently: 5 mgOral DAILY, Reported on 06/04/2024 oxyBUTYnin chloride (DITROPAN XL) 10 mg Extended Release 24 hour tablet 09/13/19 23 Active loperamide (IMODIUM) 2 mg Tablet Take 2 mg by mouth 4 times daily as needed for Diarrhea/Loose Stools. Active famotidine (PEPCID) 20 mg tablet Take 20 mg by mouth 2 times daily. Active dexAMETHasone (DECADRON) 4 mg tablet Take 4mg bid one day before the chemo and on the day of chemo and one day after the chemo 30 Tablet 4 06/18/20 23 Active albuterol sulfate HFA 90 mcg/actuation aerosol inhaler Take 2 Puffs by inhalation every 6 hours as needed for Shortness of Breath. Active BENZONATATE ORAL Take 100 mg by mouth 1 time daily as needed. Active ALPRAZolam (XANAX) 0.25 mg tablet Take 0.25 mg by mouth 3 times daily as needed for Anxiety. Active cholestyramin e, with sugar, (QUESTRAN) 4 gram Powder in Packet Take 1 Packet by mouth 2 times daily. 60 Packet 1 09/26/19 24 Active ondansetron (ZOFRAN ODT) 8 mg Tablet, Rapid Dissolve Dissolve 1 tablet on top of tongue then swallow with saliva every 8 hours as needed for nausea or vomiting 30 Tablet 1 10/03/19 24 Active lidocaine-otilia locaine (EMLA) 2.5-2.5 % Cream Apply to affected area see administration instructions. 30 Gram 1 10/03/19 24 Active celecoxib (CeleBREX) 200 mg capsule Take 1 Capsule by mouth daily. 05/11/20 24 Active hydroCHLOROth iazide 25 mg tablet Take 1 Tablet by mouth daily. 07/02/19 25 Active hydrALAZINE (APRESOLINE) 50 mg tablet Take 1 Tablet by mouth 3 times daily. 08/20/19 25 Active furosemide (LASIX) 20 mg tablet TAKE 1 TABLET(20 MG) BY MOUTH DAILY 30 Tablet 2 09/17/19 25 Active furosemide (Lasix) 20 mg tablet Take 1 Tablet (20 mg) by mouth daily. 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 PE (pulmonary thromboembolism) Pacemaker IBS (irritable bowel syndrome) Hyperlipidemia HTN (hypertension) GERD (gastroesophageal reflux disease) Elevated tumor markers Pelvic mass in female Other specified anemias Medically complex patient Treatment plan provided Abnormal weight loss Encounters Date Type Department Care Team Description 09/21/2024 Orders Only [facility] Oncology and Hematology - [address] Shiv Mosher MD Malignant neoplasm of ovary, unspecified laterality ([facility]/HCC) 09/18/2024 Orders Only [facility] Oncology and Hematology - [address] Shiv Mosher MD 09/17/2024 Telephone [facility] Oncology and Hematology - [address] Shiv Mosher MD Procedure Change 09/14/2024 Orders Only [facility] Oncology and Hematology - [address] Shiv Mosher MD Malignant neoplasm of ovary, unspecified laterality ([facility]/HCC) 09/13/2024 Refill [facility] Oncology and Hematology - [address] [place] [id number] Shiv Mosher MD 09/09/2024 External Device Data STL ABSTRACTION Provider, Abstract 09/07/2024 Orders Only [facility] Oncology and Hematology - [address] Shiv Mosher MD Malignant neoplasm of ovary, unspecified laterality (CMS/HCC) 08/31/2024 Orders Only [facility] Oncology and Hematology - [address] Shiv Guzman MD Malignant neoplasm of ovary, unspecified laterality (CMS/HCC) 08/29/2024 External Device Data STL ABSTRACTION Provider, Abstract 08/28/2024 External Device Data STL ABSTRACTION Provider, Abstract 08/28/2024 Orders Only [facility] Oncology and Hematology [facility] [address] Shiv Mosher MD 08/27/2024 8:30 AM SSRS REPORT DEVELOPER Office Visit [facility] Oncology and Hematology [facility] [address] [place] [id number] Shiv Mosher MD Malignant neoplasm of ovary, unspecified laterality (CMS/HCC) (Primary Dx) 08/27/2024 Orders Only [facility] Oncology and Hematology [facility] [address] [place] [id number] Shiv Mosher MD 08/26/2024 External Device Data STL ABSTRACTION Provider, Abstract 08/24/2024 Orders Only [facility] Oncology and Hematology [address] [place] [id number] Shiv Mosher MD Malignant neoplasm of ovary, unspecified laterality (CMS/HCC) 08/17/2024 Orders Only [facility] Oncology and Hematology [place] [address] [address] [place] [address] Shiv Mosher MD Malignant neoplasm of ovary, unspecified laterality (CMS/HCC) 08/10/2024 Orders Only [facility] Oncology and Hematology - [address] [place] [id number] Shiv Mosher MD Malignant neoplasm of ovary, unspecified laterality (CMS/HCC) 08/06/2024 Orders Only [facility] Oncology and Hematology [address] [place] [id number] Shiv Mosher MD Malignant neoplasm of ovary, unspecified laterality (CMS/HCC) (Primary Dx) 08/03/2024 Orders Only [facility] Oncology and Hematology - [address] [place] [phone] Shiv Mosher MD Malignant neoplasm of ovary, unspecified laterality (CMS/HCC) 07/27/2024 Orders Only [facility] Oncology and Hematology - [address] [place] [phone] Shiv Mosher MD Malignant neoplasm of ovary, unspecified laterality (CMS/HCC) 07/20/2024 Orders Only [facility] Oncology and Hematology - [address] [place] [id number] Shiv Mosher MD Malignant neoplasm of ovary, unspecified laterality (CMS/HCC) 07/16/2024 8:45 AM SSRS REPORT DEVELOPER Office Visit [facility] Oncology and Hematology - [address] [place] [id number] Shiv Mosher MD Malignant neoplasm of ovary, unspecified laterality (CMS/HCC) (Primary Dx) 07/13/2024 Orders Only [facility] Oncology and Hematology - [address] [place] [id number] Shiv Mosher MD Malignant neoplasm of ovary, unspecified laterality (CMS/HCC) 07/09/2024 Orders Only [facility] Oncology and Hematology - [address] [place] [address] Shiv Mosher MD 07/06/2024 Orders Only [facility] Oncology and Hematology - [address] [place] [id number] Shiv Mosher MD Malignant neoplasm of ovary, unspecified laterality (CMS/HCC) 07/01/2024 Orders Only [facility] Oncology and Hematology - [address] [place] [address] Shiv Mosher MD 06/29/2024 Orders Only [facility] Oncology and Hematology - [address] [place] [address] Shiv Mosher MD Malignant neoplasm of ovary, unspecified laterality (CMS/HCC) from Last 3 Months Immunizations Immunization Administration Dates Next Due (PFIZER)(12 YR UP) COVID-19 VACCINE - EMERGENCY USE AUTHORIZATION, MRNA, [id number](PF) 30 MCG/0.3 ML IM SUSP 04/17/2021 Influenza [...] Comments Blood Pressure 167/76 08/27/2024 8:47 AM SSRS REPORT DEVELOPER Pulse 86 08/27/2024 8:44 AM SSRS REPORT DEVELOPER Temperature 35.5 C (95.9 F) 08/27/2024 8:44 AM SSRS REPORT DEVELOPER Respiratory Rate 15 08/27/2024 8:44 AM SSRS REPORT DEVELOPER Oxygen Saturation 98% 08/27/2024 8:44 AM SSRS REPORT DEVELOPER Inhaled Oxygen Concentration - - Weight 55.2 kg (121 lb 12.8 oz) 08/27/2024 8:44 AM SSRS REPORT DEVELOPER Height 157.5 cm (5' 2 ) 05/31/2022 3:03 PM SSRS REPORT DEVELOPER Body Mass Index 22.28 05/31/2022 3:03 PM SSRS REPORT DEVELOPER Plan of Treatment Upcoming Encounters Date Type Department Care Team (Late st Contact Info) Description 10/08/2024 8:30 AM CDT Office Visit [facility] Oncology and Hematology - [address] [place] [address] Shiv Mosher MD [address] [facility] [address] [place] [address] Health Maintenance Due Date Last Done Comments DTAP/TDAP/TD VACCINES (1 - Tdap) 1959 PNEUMOCOCCAL VACCINE 50+ YEARS (1 of 2 - PCV) 08/07/18 61 Traditional Medicare (ACO) Annual Wellness Visit 08/07 ZOSTER VACCINE (1 of 2) 1959 OSTEOPOROSIS [...] years Discontinued Medical Devices Implanted Type Area Boxer Operator Device Identifier Shelf Expiration Date Model / Serial / Lot Port Powerport Clearvue 8fr Mri [id number] - [id number] Implanted:Qty : 1 on 12/19/2021 by June Hunter MD at [facility] Port Right: Chest [employer] [id number] 12/21/2022 [id number] / / [id number] Pacemaker Procedures Procedure Name Priority Date/Time Associated Diagnosis Comments COMPREHENSIVE METABOLIC PANEL Routine 09/17/2024 12:59 PM CDT BASIC METABOLIC PANEL Routine 08/27/2024 2:13 PM SSRS REPORT DEVELOPER CHG CA 15 3 Routine 08/27/2024 11:38 AM SSRS REPORT DEVELOPER COMPREHENSIVE METABOLIC PANEL Routine 08/27/2024 8:40 AM SSRS REPORT DEVELOPER CANCER ANTIGEN 15-3 Routine 07/16/2024 3 :32 PM SSRS REPORT DEVELOPER BASIC METABOLIC PANEL Routine 07/16/2024 3:15 PM SSRS REPORT DEVELOPER COMPREHENSIVE METABOLIC PANEL Routine 07/16/2024 3:11 PM SSRS REPORT DEVELOPER COMPREHENSIVE METABOLIC PANEL Routine 07/16/2024 2:42 PM SSRS REPORT DEVELOPER CT CHEST ABDOMEN PELVIS W CONT Routine 07/09/2024 10:35 AM SSRS REPORT DEVELOPER BASIC METABOLIC PANEL Routine 06/25/2024 4:55 PM SSRS REPORT DEVELOPER COMPREHENSIVE METABOLIC PANEL Routine 06/25/2024 4:39 PM SSRS REPORT DEVELOPER from Last 3 Months Results * COMPREHENSIVE METABOLIC PANEL (09/17/2024 12:59 PM CDT) Only the most recent of5 resultswithin the time period is included. Blood us Shiv Mosher MD CHEMISTRY ORDERABLES Final Resu lt * BASIC METABOLIC PANEL (08/27/2024 2:13 PM SSRS REPORT DEVELOPER) Only the most recent of3 resultswithin the time period is included. Blood us Shiv Mosher MD CHEMISTRY ORDERABLES Final Resu lt * CHG CA 15 3 (08/27/2024 11:38 AM SSRS REPORT DEVELOPER) Result Hannah Mosher MD CHG - LABORATORY Final Result * CANCER ANTIGEN 15-3 (07/16/2024 3:32 PM SSRS REPORT DEVELOPER) Blood us Shiv Mosher MD CHEMISTRY ORDERABLES Final Resu lt * CT CHEST ABDOMEN PELVIS W CONT (07/09/2024 10:35 AM SSRS REPORT DEVELOPER) Anatomical Region Laterality Modality Chest Computed Tomogra phy us Shiv Mosher MD CT ORDERABLES Final Result from Last 3 Months Insurance [place], [place] [id number] [place] [address] SUPP MEDICARE PART A AND B RX [employer] Medicare Part D MEDICARE PART A AND B BCBS SUPP Advance Directives For more information, please contact: [phone] Documents on File Type Date Recorded Patient Continuity Reader Expl 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
--- OUTSIDE RECORDS SUMMARY | 2024-09-22 15:32 | XMS_ITS | Clinical Summary ---
Author Organization [facility] [address] Address [address] [place] [address] Care Team Providers Care Die Sizer Name Role Phone Apollo Norwood MD Primary Care Provider [phone] Allergies No known active allergies Medications hyoscyamine [...] of Treatment Not on [place] [address] [facility] [place] [address] Care Teams Die Sizer Relationship Specialty Start Date End Date Apollo Norwood MD [address] [place] [id number] PCP - General Internal Medicine 01/12/20
--- OUTSIDE RECORDS SUMMARY | 2024-09-22 15:32 | XMS_ITS | Encounter Summary ---
Author Organization [facility] [employer] [facility] Address [address] [place] [address] Care Team Providers Care Strategic Buyer Name Role Phone Unavailable Primary Care Provider Unavailabl e Encounter Details Date Type Department Care Team (Late Contact Info) Description 09/21/2024 Orders Only [facility] Oncology and [facility] [address] [place] [address] Shiv Mosher MD [address] [place], [place] [address] [address] [place] [address] Malignant neoplasm of ovary, unspecified laterality [...] Description 10/08/2024 8:30 AM CDT Office Visit [facility] Oncology [facility] Hematology [facility] [address] [place] [address] Shiv Mosher MD [address] [address] [place] [id number] documented as of this encounter Visit Diagnoses Diagnosis Malignant neoplasm of ovary, unspecified laterality (CMS/HCC) documented in this encounter
--- OUTSIDE RECORDS SUMMARY | 2024-09-22 15:32 | XMS_ITS | Referral Summary ---
Author Organization [facility] [address] Address [address] [place] [address] Care Team Providers Care Junior Java Developer Name Role Phone Apollo Norwood MD Primary Care Provider [phone] Allergies No known active allergies Medications hyoscyamine [...] of Treatment [place] [address] MEDICARE [facility] [place] [address] Care Teams Junior Java Developer Relationship Specialty Start Date End Date Apollo Norwood MD [address] [place] [phone] PCP - General Internal Medicine 01/12/20
--- OUTSIDE RECORDS SUMMARY | 2024-09-22 15:32 | XMS_ITS | Encounter Summary ---
Author Organization [facility] [id number] Security Marti [facility] Address [address] [place] [address] Care Team Providers Care Mobile Paramedical Examiner Name Role Phone Unavailable Primary Care Provider Unavailabl e Encounter Details Date Type Department Care Team (Late Contact Info) Description 09/18/2024 Orders Only [facility] Oncology [facility] [address] [facility] [address] [place] [phone] Shiv Mosher MD [facility] [address] [place] [address] Social History Tobacco Use Types Packs/Day Years [...] Description 10/08/2024 8:30 AM CDT Office Visit [facility] Oncology [facility] [address] [place] [address] Shiv Mosher MD [facility] [address] [place] [address] documented as of this encounter Procedures Procedure Name Priority Date/Time Associated Diagnosis Comments COMPREHENSIVE METABOLIC PANEL Routine 09/17/2024 12:59 PM CDT documented in this encounter Results * COMPREHENSIVE METABOLIC PANEL (09/17/2024 12:59 PM CDT) Blood us Shiv Mosher MD CHEMISTRY ORDERABLES Final Resu lt documented in this encounter Visit Diagnoses Not on filedocumented in this encounter
--- OUTSIDE RECORDS SUMMARY | 2024-09-22 15:32 | XMS_ITS | Clinical Summary ---
Author Organization [facility] Address [address] [place] [address] Care Team Providers Care Radiology Therapist Name Role Phone Unavailable Primary Care Provider [...]
== END 2024-09-22 14:09 | disposition home or self-care (01) ==
PROVIDERS: PCP Physician Assistant Medical; Visit Provider Internal Medicine
DX: I10 Essential (primary) hypertension (principal)
CPT/HCPCS: 80048; 85025

== ENCOUNTER 2024-09-24 16:46 | Outpatient (CLI) | payer MEDICARE, SELFPAY ==
--- OUTSIDE RECORDS SUMMARY | 2024-09-24 16:50 | XMS_ITS | Referral Summary ---
Author Organization [facility] [address] Address [address] [place] [address] Care Team Providers Care Tung Nut Grower Name Role Phone Apollo Norwood MD Primary Care Provider [phone] Allergies No known active allergies Medications hyoscyamine [...] of Treatment Not [place] [address] MEDICARE [facility] [place] [address] Care Teams Tung Nut Grower Relationship Specialty Start Date End Date Apollo Norwood MD [address] [place] [phone] PCP - General Internal Medicine 01/12/20
--- OUTSIDE RECORDS SUMMARY | 2024-09-24 16:50 | XMS_ITS | Clinical Summary ---
Author Organization [facility] [address] Address [address] [place] [address] Care Team Providers Care Detonator Maker Name Role Phone Apollo Norwood MD Primary Care Provider [phone] Allergies No known active allergies Medications hyoscyamine [...] of Treatment Not [place] [address] [address] [facility] [place] [address] Care Teams Detonator Maker Relationship Specialty Start Date End Date Apollo Norwood MD [address] [place] [id number] PCP - General Internal Medicine 01/12/20
--- OUTSIDE RECORDS SUMMARY | 2024-09-24 16:50 | XMS_ITS | Encounter Summary ---
Author Organization [facility] [employer]The [employer] Marti [facility] Address [address] [place] [address] Care Team Providers Care Dicer Operator Name Role Phone Unavailable Primary Care Provider Unavailabl e Encounter Details Date Type Department Care Team (Late Contact Info) Description 09/21/2024 Orders Only [facility] Oncology and [facility] [address] [place] [address] Shiv Mosher MD [address] [place], [place] [address] [place] [employer] [address] [place] [address] Malignant neoplasm of ovary, unspecified laterality [...] Description 10/08/2024 8:30 AM CDT Office Visit [facility] Oncology [facility] Hematology [facility] [address] [place] [address] Shiv Mosher MD [address] [place] [id number] documented as of this encounter Visit Diagnoses Diagnosis Malignant neoplasm of ovary, unspecified laterality (CMS/HCC) documented in this encounter
--- OUTSIDE RECORDS SUMMARY | 2024-09-24 16:50 | XMS_ITS | Clinical Summary ---
Author Organization [facility] Address [address] [place] [address] Phone Care Team Providers Care Field Artillery Cannoneer Name Role Phone Unavailable Primary Care Provider Unavailabl e Allergies No known active allergies Medications pravastatin (PRAVACHOL) 40 mg tablet Take 40 mg by mouth daily with supper. Active losartan (COZAAR) 50 mg tablet Take 100 mg by mouth daily. Active Fish Oil-[place]-3 Fatty Acids 300-500 mg Capsule Take by [...] daily. 30 Tablet 1 2 10:07 AM PLACEMENT MANAGER 05/12/20 22 Active Additional Information Patient taking [...] Encounters Date Type Department Care Team Description 09/24/2024 Telephone [facility] Oncology and Hematology - Ariel [address] [place] [phone] Shiv Mosher MD Leg Swelling 09/21/2024 Orders Only [facility] Oncology and Hematology - Ariel [address] Shiv Mosher MD Malignant neoplasm of ovary, unspecified laterality (CMS/HCC) 09/18/2024 Orders Only [facility] Oncology and Hematology - Ariel [address] Shiv Mosher MD 09/17/2024 Telephone [facility] Oncology and Hematology - [place]el [address] [place] [phone] Shiv Mosher MD Procedure Change 09/14/2024 Orders Only [facility] Oncology and Hematology - Ariel [address] [place] [phone] Shiv Mosher MD Malignant neoplasm of ovary, unspecified laterality (CMS/HCC) 09/13/2024 Refill [facility] Oncology and Hematology - Ariel [address] [place] [address] Shiv Mosher MD 09/09/2024 External Device Data STL ABSTRACTION Provider, Abstract 09/07/2024 Orders Only [facility] Oncology and Hematology - Ariel [address] [place] [address] Shiv Mosher MD Malignant neoplasm of ovary, unspecified laterality (CMS/HCC) 08/31/2024 Orders Only [facility] Oncology and Hematology - Ariel [address] Shiv Mosher MD Malignant neoplasm of ovary, unspecified laterality (CMS/HCC) 08/29/2024 External Device Data STL ABSTRACTION Provider, Abstract 08/28/2024 External Device Data STL ABSTRACTION Provider, Abstract 08/28/2024 Orders Only [facility] Oncology and Hematology - Ariel [address] Shiv Mosher MD 08/27/2024 8:30 AM PLACEMENT MANAGER Office Visit [facility] Oncology and Hematology [facility] [address] [place] [phone] Shiv Mosher MD Malignant neoplasm of ovary, unspecified laterality (CMS/HCC) (Primary Dx) 08/27/2024 Orders Only [facility] Oncology and Hematology - Ariel [address] Shiv Mosher MD 08/26/2024 External Device Data STL ABSTRACTION Provider, Abstract 08/24/2024 Orders Only [facility] Oncology and Hematology - Ariel [address] [place] [phone] Shiv Mosher MD Malignant neoplasm of ovary, unspecified laterality (CMS/HCC) 08/17/2024 Orders Only [facility] Oncology and Hematology - Ariel [address] [place] [address] Shiv Mosher MD Malignant neoplasm of ovary, unspecified laterality (CMS/HCC) 08/10/2024 Orders Only [facility] Oncology and Hematology - Ariel [address] [place] [phone] Shiv Mosher MD Malignant neoplasm of ovary, unspecified laterality (CMS/HCC) 08/06/2024 Orders Only [facility] Oncology and Hematology - Ariel [address] Shiv Mosher MD Malignant neoplasm of ovary, unspecified laterality (CMS/HCC) (Primary Dx) 08/03/2024 Orders Only [facility] Oncology and Hematology - Ariel [address] Shiv Mosher MD Malignant neoplasm of ovary, unspecified laterality (CMS/HCC) 07/27/2024 Orders Only [facility] Oncology and Hematology - Ariel [address] Shiv Mosher MD Malignant neoplasm of ovary, unspecified laterality (CMS/HCC) 07/20/2024 Orders Only [facility] Oncology and Hematology - Ariel [address] Shiv Mosher MD Malignant neoplasm of ovary, unspecified laterality (CMS/HCC) 07/16/2024 8:45 AM PLACEMENT MANAGER Office Visit [facility] Oncology and Hematology - Ariel [address] [place] [address] Shiv Mosher MD Malignant neoplasm of ovary, unspecified laterality (CMS/HCC) (Primary Dx) 07/13/2024 Orders Only [facility] Oncology and Hematology - Ariel [address] [place] [address] Shiv Mosher MD Malignant neoplasm of ovary, unspecified laterality (CMS/HCC) 07/09/2024 Orders Only [facility] Oncology and Hematology - Ariel [address] Shiv Mosher MD 07/06/2024 Orders Only [facility] Oncology and Hematology - Ariel [address] [place] [address] Shiv Mosher MD Malignant neoplasm of ovary, unspecified laterality (CMS/HCC) 07/01/2024 Orders Only [facility] Oncology and Hematology - Ariel [address] [place] [address] Shiv Mosher MD 06/29/2024 Orders Only [facility] Oncology and Hematology [facility] [address] [place] [address] Shiv Mosher MD Malignant neoplasm of ovary, unspecified laterality (CMS/HCC) from Last 3 Months Immunizations Immunization Administration Dates Next Due ([employer] Angel)(12 YR UP) COVID-19 VACCINE - EMERGENCY USE AUTHORIZATION, MRNA, [id number](PF) 30 MCG/0.3 ML IM SUSP 04/17/2021 Influenza [...] Comments Blood Pressure 167/76 08/27/2024 8:47 AM PLACEMENT MANAGER Pulse 86 08/27/2024 8:44 AM PLACEMENT MANAGER Temperature 35.5 C (95.9 F) 08/27/2024 8:44 AM PLACEMENT MANAGER Respiratory Rate 15 08/27/2024 8:44 AM PLACEMENT MANAGER Oxygen Saturation 98% 08/27/2024 8:44 AM PLACEMENT MANAGER Inhaled Oxygen Concentration - - Weight 55.2 kg (121 lb 12.8 oz) 08/27/2024 8:44 AM PLACEMENT MANAGER Height 157.5 cm (5' 2 ) 05/31/2022 3:03 PM PLACEMENT MANAGER Body Mass Index 22.28 05/31/2022 3:03 PM PLACEMENT MANAGER Plan of Treatment Upcoming Encounters Date Type Department Care Team (Late st Contact Info) Description 10/08/2024 8:30 AM CDT Office Visit [facility] Oncology and Hematology - Ari[place] [address] [place] [address] Shiv Mosher MD [address] [facility] [address] [place] [address] Health Maintenance Due Date Last Done [...] years Discontinued Medical Devices Implanted Type Area Paper Pattern Inspector Device Identifier Shelf Expiration Date Model / Serial / Lot Port Powerport Clearvue 8fr Mri [id number] - [id number] Implanted:Qty : 1 on 12/19/2021 by June Hunter MD at [facility] Port Right: Chest [employer] [id number] 12/21/2022 [id number] / / [id number] Pacemaker Procedures Procedure Name Priority Date/Time Associated Diagnosis Comments COMPREHENSIVE METABOLIC PANEL Routine 09/17/2024 12:59 PM CDT BASIC METABOLIC PANEL Routine 08/27/2024 2:13 PM PLACEMENT MANAGER CHG CA 15 3 Routine 08/27/2024 11:38 AM PLACEMENT MANAGER COMPREHENSIVE METABOLIC PANEL Routine 08/27/2024 8:40 AM PLACEMENT MANAGER CANCER ANTIGEN 15-3 Routine 07/16/2024 3 :32 PM PLACEMENT MANAGER BASIC METABOLIC PANEL Routine 07/16/2024 3:15 PM PLACEMENT MANAGER COMPREHENSIVE METABOLIC PANEL Routine 07/16/2024 3:11 PM PLACEMENT MANAGER COMPREHENSIVE METABOLIC PANEL Routine 07/16/2024 2:[address] CHEST ABDOMEN PELVIS W CONT Routine 07/09/2024 10:35 AM PLACEMENT MANAGER from Last 3 Months Results * COMPREHENSIVE METABOLIC PANEL (09/17/2024 12:59 PM CDT) Only the most recent of4 resultswithin the time period is included. Blood us Shiv Mosher MD CHEMISTRY ORDERABLES Final Resu lt * BASIC METABOLIC PANEL (08/27/2024 2:13 PM PLACEMENT MANAGER) Only the most recent of2 resultswithin the time period is included. Blood us Shiv Mosher MD CHEMISTRY ORDERABLES Final Resu lt * CHG CA 15 3 (08/27/2024 11:38 AM PLACEMENT MANAGER) Result Hannah Mosher MD CHG - LABORATORY Final Result * CANCER ANTIGEN 15-3 (07/16/2024 3:32 PM PLACEMENT MANAGER) Blood us Shiv Mosher MD CHEMISTRY ORDERABLES Final Resu lt * CT CHEST ABDOMEN PELVIS W CONT (07/09/2024 10:35 AM PLACEMENT MANAGER) Anatomical Region Laterality Modality Chest Computed Tomogra phy us Shiv Mosher MD CT ORDERABLES Final Result from Last 3 [place] [address] [facility] SUPP MEDICARE PART A AND B RX [employer] Medicare Part D MEDICARE PART A AND B BCBS SUPP Advance Directives For more information, please contact: [phone] Documents on File Type Date Recorded Patient House Detective Expl 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
--- OUTSIDE RECORDS SUMMARY | 2024-09-24 16:50 | XMS_ITS | Clinical Summary ---
Author Organization [facility] Address [address] [place] [address] Care Team Providers Care Orthotic Aide Name Role Phone Unavailable Primary Care Provider [...]
--- OUTSIDE RECORDS SUMMARY | 2024-09-24 16:50 | XMS_ITS | Encounter Summary ---
Author Organization [facility] Address [address] [place] [address] Care Team Providers Care Resaw Carriage Operator Name Role Phone Unavailable Primary Care Provider Unavailabl e Reason for Visit * Reason Onset Date Comments Leg Swelling 09/24/2024 Encounter Details Date Type Department Care Team (Late st Contact Info) Description 09/24/2024 Telephone [facility] Oncology and Hematology - Ariel [address] [facility] [address] [place] [address] Shiv Mosher MD [address] [facility] [address] [place] [address] Leg Swelling Social History Tobacco Use Types Packs/Day Years [...] on file documented as of this encounter Miscellaneous Notes * Telephone Encounter - Michelle Magallon - 09/24/2024 1:20 PM CDT LVM for patient on recommendations. I let her know that if she had any other questions or concerns she could always give our office a call back. * Telephone Encounter - Michelle Magallon - 09/24/2024 1:20 PM CDT ----- Message from Dr. Shvi Mosher sent at 09/24/2024 12:38 PM CDT ----- Regarding: RE: Swelling She can restart the Lasix. ----- Message ----- From: Michelle Magallon Sent: 09/23/2024 3:36 PM CDT To: Shiv Mosher MD Subject: Swelling Patient had her treatment on . She is saying that she is having a lot of swelling in her legs. She said that she has gained 6 pounds since her treatment. She did say that you had taken her off her furosemide due to her kidney function. Patient did prop her feet up last night and some of theswelling went down but she has that increase weight gain. Please advise on what she should do. documented in this encounter Plan of Treatment Upcoming Encounters Date Type Department Care Team (Late st Contact Info) Description 10/08/2024 8:30 AM CDT Office Visit [facility] Oncology and Hematology - [place] [address] [place] [address] [facility] [address] [place] [address] Shiv Mosher MD [address] [facility] [address] [place] [address] documented as of this encounter Visit Diagnoses Not on filedocumented in this encounter
[2024-09-24 17:36] LABS: Anion Gap 12 mmol/L (4-12); Blood Urea Nitrogen 78 mg/dL (7-17); Calcium 8.6 mg/dL (8.4-10.2); Carbon Dioxide 17 mmol/L (22-30); Chloride 110 mmol/L (98-107); Estimated Glomerular Filt Rate 17; Glucose 101 mg/dL (65-110); Potassium 5.8 mmol/L (3.4-5.0); Sodium 139 mmol/L (137-145)
== END 2024-09-24 16:47 | disposition home or self-care (01) ==
PROVIDERS: PCP Physician Assistant Medical; Visit Provider Physician Assistant Medical
DX: E87.5 Hyperkalemia (principal)
CPT/HCPCS: 36415; 80048

== ENCOUNTER 2024-09-25 14:19 | Inpatient (IN) | payer MEDICARE, SELFPAY ==
[2024-09-25] VITALS (10 sets, daily range): BP systolic 120–141; BP diastolic 59–86; PULSE 65–79; RESP 16–20; TEMP 36.3–36.6; O2SAT 93–97; BMI 24.8
--- NOTE | ~2024-09-25 | US_ITS ---
EXAM: ABDOMEN ULTRASOUND HISTORY: No history provided. COMPARISON: Reference is made to a CT examination of the abdomen and pelvis dated 07/09/2024 and rock paalcios back to 02/11/2023 FINDINGS: LIVER: The liver is heterogeneous in echogenicity and unremarkable in size. Adjacent to the gallbladder in segment 5 is a well-circumscribed focus of decreased echogenicity marianna uring 12 x 14 x 14 mm without increased vascularity. This focus was not definitively present on the p kitty's CT examination of the abdomen and pelvis dated 07/09/2024 for which follow-up with contrast-e nhanced MRI (with liver mass protocol) for further evaluation. The portal vein is patent, demonstrating hepatopedal flow. GALLBLADDER: No stones are identified within the gallbladder. Mild gallbladder wall thickening is present. The patient also demonstrates multiple (likely) polyps within the gallbladder. In addition, adjacent to the fundus of the gallbladder is an indeterminate vascular focus of soft tissue echogenicity, whic h may also be evaluated on patient's abdominal MRI. BILE DUCTS: Common bile duct measures 8mm, not enlarged for a patient of this age. PANCREAS: Limited evaluation of the pancreas secondary to overlying bowel gas IMPRESSION: Indeterminate findings within segment 5 of the liver and adjacent to the fundus of the gallbladder wh ich contrast enhanced MRI is suggested for further evaluation. Reviewed, dictated and finalized at location A. IMPRESSION: Indeterminate findings within segment 5 of the liver and adjacent to the fundus of the gallbladder which contrast enhanced MRI is suggested for further evalua tion.
--- NOTE | ~2024-09-25 | XR_ITS ---
CHEST RADIOGRAPH CLINICAL HISTORY: SOB . COMPARISON: 09/24/2024 TECHNIQUE: Single portable view of the chest. FINDINGS The left mid lung is partially obscured due to pacemaker generator. Wires project over the right atrium and right ventricle. Right subclavian port catheter identified with its tip projecting over the lower border of the right atrium. The remainder of the cardiomediastinal silhouette is otherwise unremarkable. Interval development of air bronchograms within the right upper lobe with increasing density suggesti ng worsening infiltrate. Patchy opacification of the left mid to lower lung field persists. Increased interstitial markings are identified bilaterally, findings suggesting mild pulmonary vascul ar congestion. Redemonstration of small bilateral pleural effusions The remainder of the lungs are clear. IMPRESSION: Worsening infiltrate within the right upper lobe. Mild pulmonary vascular congestion with redemonstration of small bilateral pleural effusions. Reviewed, dictated and finalized at location A. IMPRESSION: Worsening infiltrate within the right upper lobe. Mild pulmonary vascular congestion with redemonstration of small bilateral pleu ral effusions.
--- NOTE | ~2024-09-25 | CT_ITS ---
EXAMINATION: CT diagnostic chest wo con DATE: 09/26/2024 13:43 INDICATION: clarify Pneumonia vs pulm edema TECHNIQUE: Computed tomography (CT) of the chest was performed with 100 mL Omnipaque-350 intravenous contrast. Automated exposure control and iterative reconstruction technique were employed. The dose-l ength product was 167.86 mGy-cm. COMPARISON: CTPA 09/09/2024; CT cap 07/09/2024. FINDINGS: CHEST: Thoracic aorta: No significant dilation or calcification. Lung parenchyma and airways: Mild septal thickening and pulmonary opacities, with some residual conso lidation, peribronchial vascular thickening, and groundglass opacity in the right upper lobe and righ t middle lobe, and to a lesser extent in the lingula. Subsegmental right basilar and subsegmental lef t basilar atelectasis/consolidation. Patent airways. Thoracic inlet, axillae and chest wall: Subcentimeter right thyroid lobe hypodensity that requires no additional evaluation at this time. Right chest implanted port terminating in the right atrium. Left chest pacer/AICD. No axillary lymphadenopathy. Mediastinum: No mass or lymphadenopathy. Heart and pericardium: Mild cardiomegaly. Trace pericardial fluid. Aortic valve and mitral calcificat ion. Coronary artery calcifications: Moderate. Pleura: Moderate left and small right pleural fluid collections, simple fluid density. Upper abdomen: Partially contracted gallbladder with thickened wall. Thoracic bones: No acute osseous finding in the chest. IMPRESSION: Pulmonary opacities may represent resolving postinfectious change, mild interstitial edema, and bibas ilar atelectasis. Persistent or recurrent infection is not excluded. Moderate left and small right pleural effusions. Gallbladder wall thickening, a nonspecific finding and in this case perhaps related to incomplete dis tention. Correlate with biliary labs and for symptoms of right upper quadrant pain Reviewed, dictated and finalized at location K. IMPRESSION: Pulmonary opacities may represent resolving postinfectious change, mild interst itial edema, and bibasilar atelectasis. Persistent or recurrent infection is no t excluded. Moderate left and small right pleural effusions. Gallbladder wall thickening, a nonspecific finding and in this case perhaps rel ated to incomplete distention. Correlate with biliary labs and for symptoms of right upper quadrant pain
--- NOTE | ~2024-09-25 | XR_ITS ---
EXAMINATION: XR chest 1V portable DATE: 09/26/2024 05:50 INDICATION: Pleural effusion TECHNIQUE: frontal view of the chest was obtained. COMPARISON: Chest radiograph dated 09/25/2024 FINDINGS: No significant interval change in linear, thicker bandlike and scattered patchy airspace opacities in the bilateral mid and lower lung zones. Likely small left pleural effusion. No pneumothorax. Mild ca rdiomegaly calcified infrahilar nodule consistent with old granulomatous disease. Right subclavian ce ntral venous port catheter with distal tip in the right atrium. Dual lead pacemaker seen with leads p rojecting over the expected locations of the right atrium and right ventricle. Metallic chain, possib ly a necklace projecting transversely across the abdomen at the inferior margin of the [id number]. IMPRESSION: 1. Persistent diffuse bilateral lung disease which could represent atelectasis, mild pulmonary edema, pneumonia or some combination of. 2. Small left pleural effusion. 3. Cardiomegaly. Reviewed, dictated and finalized at location A.
--- OUTSIDE RECORDS SUMMARY | 2024-09-25 14:22 | XMS_ITS | Clinical Summary ---
Author Organization [facility] [address] Address [address] [place] [address] Care Team Providers Care Tactical Debriefer Name Role Phone Apollo Norwood MD Primary Care Provider [phone] Allergies No known active allergies Medications hyoscyamine [...] of Treatment Not [place] [address] MEDICARE [facility] [place] [address] Care Teams Tactical Debriefer Relationship Specialty Start Date End Date Apollo Norwood MD [address] [place] [phone] PCP - General Internal Medicine 01/12/20
--- OUTSIDE RECORDS SUMMARY | 2024-09-25 14:22 | XMS_ITS | Clinical Summary ---
Author Organization [facility] Address [address] [place] [address] Care Team Providers Care Office Workforce Planner Name Role Phone Unavailable Primary Care Provider [...]
--- OUTSIDE RECORDS SUMMARY | 2024-09-25 14:22 | XMS_ITS | Encounter Summary ---
Author Organization [facility] AKASHWishabi [facility] Address [address] [place] [address] Care Team Providers Care Drill Rig Operator Name Role Phone Unavailable Primary Care Provider Unavailabl e Reason for Visit * Reason Onset Date Comments Leg Swelling 09/24/2024 Encounter Details Date Type Department Care Team (Late st Contact Info) Description 09/24/2024 Telephone [facility] Oncology and Hematology - Ariel [address] [facility] [address] [place] [address] Shiv Mosher MD [address] [facility] [address] [place] [address] Leg Swelling Social History Tobacco [...] 1:20 PM CDT ----- Message from Dr. Sihv Mosher sent at 09/24/2024 12:38 PM CDT [...] Description 10/08/2024 8:30 AM CDT Office Visit [facility] Oncology and Hematology - [place] [address] [place] [address] [facility] [address] [place] [address] Shiv Mosher MD [address] [facility] [address] [place] [address] documented as of this encounter Visit Diagnoses Not on filedocumented in this encounter
--- OUTSIDE RECORDS SUMMARY | 2024-09-25 14:22 | XMS_ITS | Referral Summary ---
Author Organization [facility] [address] Address [address] [place] [address] Care Team Providers Care Balance Wheel Hand Filer Name Role Phone Apollo Norwood MD Primary Care Provider [phone] Allergies No known active allergies Medications hyoscyamine [...] of Treatment Not on [place] [address] MEDICARE [facility] [place] [address] Care Teams Balance Wheel Hand Filer Relationship Specialty Start Date End Date Apollo Norwood MD [address] [place] [phone] PCP - General Internal Medicine 01/12/20
--- OUTSIDE RECORDS SUMMARY | 2024-09-25 14:22 | XMS_ITS | Encounter Summary ---
Author Organization [facility] [employer]Mind[employer] Marti [facility] Address [address] [place] [address] Care Team Providers Care Cook Boat Name Role Phone Unavailable Primary Care Provider Unavailabl e Encounter Details Date Type Department Care Team (Late Contact Info) Description 09/21/2024 Orders Only [facility] Oncology and [facility] [address] [place] [address] Shiv Mosher MD [address] [place], [place] [address] [address] [place] [address] Malignant neoplasm of ovary, unspecified laterality [...] Description 10/08/2024 8:30 AM CDT Office Visit [facility] H[facility] [address] [place] [address] Shiv Mosher MD [address] [place] [address] documented as of this encounter Visit Diagnoses Diagnosis Malignant neoplasm of ovary, unspecified laterality (CMS/HCC) documented in this encounter
--- OUTSIDE RECORDS SUMMARY | 2024-09-25 14:22 | XMS_ITS | Clinical Summary ---
Author Organization [facility] Address [address] [place] [address] Phone Care Team Providers Care Electrical Installer Name Role Phone Unavailable Primary Care Provider Unavailabl e Allergies No known active allergies Medications pravastatin (PRAVACHOL) 40 mg tablet Take 40 mg by mouth daily with supper. Active losartan (COZAAR) 50 mg tablet Take 100 mg by mouth daily. Active Fish Oil-Lima-3 Fatty Acids 300-500 mg Capsule Take by [...] daily. 30 Tablet 1 2 10:07 AM NURSING SCHEDULER 05/12/20 22 Active Additional Information Patient taking [...] Type Department Care Team Description 09/24/2024 Telephone [facility] - [address] [place] [id number] Shiv Mosher MD Leg Swelling 09/21/2024 Orders Only [facility] - [address] Shiv Mosher MD Malignant neoplasm of ovary, unspecified laterality (CMS/HCC) 09/18/2024 Orders Only [facility] - [address] Shiv Mosher MD 09/17/2024 Telephone [facility] - [address] [place] [id number] Shiv Mosher MD Procedure Change 09/14/2024 Orders Only [facility] - [address] [place] [phone] Shiv Mosher MD Malignant neoplasm of ovary, unspecified laterality (CMS/HCC) 09/13/2024 Refill [facility] - [address] [place] [id number] Shiv Mosher MD 09/09/2024 External Device Data STL ABSTRACTION Provider, Abstract 09/07/2024 Orders Only [facility] - [address] [place] [address] Shiv Mosher MD Malignant neoplasm of ovary, unspecified laterality (CMS/HCC) 08/31/2024 Orders Only [facility] - [address] Shiv Mosher MD Malignant neoplasm of ovary, unspecified laterality (CMS/HCC) 08/29/2024 External Device Data STL ABSTRACTION Provider, Abstract 08/28/2024 External Device Data STL ABSTRACTION Provider, Abstract 08/28/2024 Orders Only [facility] - [address] Shiv Mosher MD 08/27/2024 8:30 AM NURSING SCHEDULER Office Visit [facility] [address] [place] [phone] Shiv Mosher MD Malignant neoplasm of ovary, unspecified laterality (CMS/HCC) (Primary Dx) 08/27/2024 Orders Only [facility] - [address] Shiv Mosher MD 08/26/2024 External Device Data STL ABSTRACTION Provider, Abstract 08/24/2024 Orders Only [facility] - [address] [place] [phone] Shiv Mosher MD Malignant neoplasm of ovary, unspecified laterality (CMS/HCC) 08/17/2024 Orders Only [facility] - [address] [place] [id number] Shiv Mosher MD Malignant neoplasm of ovary, unspecified laterality (CMS/HCC) 08/10/2024 Orders Only [facility] - [address] [place] [phone] Shiv Mosher MD Malignant neoplasm of ovary, unspecified laterality (CMS/HCC) 08/06/2024 Orders Only [facility] - [address] Shiv Mosher MD Malignant neoplasm of ovary, unspecified laterality (CMS/HCC) (Primary Dx) 08/03/2024 Orders Only [facility] - [address] Shiv Mosher MD Malignant neoplasm of ovary, unspecified laterality (CMS/HCC) 07/27/2024 Orders Only [facility] - [address] Shiv Mosher MD Malignant neoplasm of ovary, unspecified laterality (CMS/HCC) 07/20/2024 Orders Only [facility] - [address] Shiv Mosher MD Malignant neoplasm of ovary, unspecified laterality (CMS/HCC) 07/16/2024 8:45 AM NURSING SCHEDULER Office Visit [facility] - [address] [place] [id number] Shiv Mosher MD Malignant neoplasm of ovary, unspecified laterality (CMS/HCC) (Primary Dx) 07/13/2024 Orders Only [facility] - [address] [place] [id number] Shiv Mosher MD Malignant neoplasm of ovary, unspecified laterality (CMS/HCC) 07/09/2024 Orders Only [facility] - [address] Shiv Mosher MD 07/06/2024 Orders Only [facility] - [address] [place] [id number] Shiv Mosher MD Malignant neoplasm of ovary, unspecified laterality (CMS/HCC) 07/01/2024 Orders Only [facility] - [address] [place] [address] Shiv Mosher MD 06/29/2024 Orders Only [facility] [address] [place] [address] Shiv Mosher MD Malignant neoplasm of ovary, unspecified laterality (CMS/HCC) from Last 3 Months Immunizations Immunization Administration Dates Next Due ([employer])(12 YR UP) COVID-19 VACCINE - EMERGENCY USE AUTHORIZATION, MRNA, [id number](PF) 30 MCG/0.3 ML IM SUSP 04/17/2021 Influenza [...] Comments Blood Pressure 167/76 08/27/2024 8:47 AM NURSING SCHEDULER Pulse 86 08/27/2024 8:44 AM NURSING SCHEDULER Temperature 35.5 C (95.9 F) 08/27/2024 8:44 AM NURSING SCHEDULER Respiratory Rate 15 08/27/2024 8:44 AM NURSING SCHEDULER Oxygen Saturation 98% 08/27/2024 8:44 AM NURSING SCHEDULER Inhaled Oxygen Concentration - - Weight 55.2 kg (121 lb 12.8 oz) 08/27/2024 8:44 AM NURSING SCHEDULER Height 157.5 cm (5' 2 ) 05/31/2022 3:03 PM NURSING SCHEDULER Body Mass Index 22.28 05/31/2022 3:03 PM NURSING SCHEDULER Plan of Treatment Upcoming Encounters Date Type Department Care Team (Late st Contact Info) Description 10/08/2024 8:30 AM CDT Office Visit [facility] - [address] [place] [address] Shiv Mosher MD [address] [facility] [address] [place] [phone] Health Maintenance Due Date Last Done [...] years Discontinued Medical Devices Implanted Type Area Electrical Engineering Intern Device Identifier Shelf Expiration Date Model / Serial / Lot Port Powerport Clearvue 8fr Mri [id number] - [id number] Implanted:Qty : 1 on 12/19/2021 by June Hunter MD at [facility] Port Right: Chest [employer] [id number] 12/21/2022 [id number] / / [id number] Pacemaker Procedures Procedure Name Priority Date/Time Associated Diagnosis Comments COMPREHENSIVE METABOLIC PANEL Routine 09/17/2024 12:59 PM CDT BASIC METABOLIC PANEL Routine 08/27/2024 2:13 PM NURSING SCHEDULER CHG CA 15 3 Routine 08/27/2024 11:38 AM NURSING SCHEDULER COMPREHENSIVE METABOLIC PANEL Routine 08/27/2024 8:40 AM NURSING SCHEDULER CANCER ANTIGEN 15-3 Routine 07/16/2024 3 :32 PM NURSING SCHEDULER BASIC METABOLIC PANEL Routine 07/16/2024 3:15 PM NURSING SCHEDULER COMPREHENSIVE METABOLIC PANEL Routine 07/16/2024 3:11 PM NURSING SCHEDULER COMPREHENSIVE METABOLIC PANEL Routine 07/16/2024 2:[address] CHEST ABDOMEN PELVIS W CONT Routine 07/09/2024 10:35 AM NURSING SCHEDULER from Last 3 Months Results * COMPREHENSIVE METABOLIC PANEL (09/17/2024 12:59 PM CDT) Only the most recent of4 resultswithin the time period is included. Blood us Shiv Mosher MD CHEMISTRY ORDERABLES Final Resu lt * BASIC METABOLIC PANEL (08/27/2024 2:13 PM NURSING SCHEDULER) Only the most recent of2 resultswithin the time period is included. Blood us Shiv Mosher MD CHEMISTRY ORDERABLES Final Resu lt * CHG CA 15 3 (08/27/2024 11:38 AM NURSING SCHEDULER) Result Hannah Mosher MD CHG - LABORATORY Final Result * CANCER ANTIGEN 15-3 (07/16/2024 3:32 PM NURSING SCHEDULER) Blood us Shiv Mosher MD CHEMISTRY ORDERABLES Final Resu lt * CT CHEST ABDOMEN PELVIS W CONT (07/09/2024 10:35 AM NURSING SCHEDULER) Anatomical Region Laterality Modality Chest Computed Tomogra phy us Shiv Mosher MD CT ORDERABLES Final Result from Last 3 [place] [address] [facility] SUPP MEDICARE PART A AND B RX PRIME [employer]ER[employer] Medicare Part D MEDICARE PART A AND B BCBS SUPP Advance Directives For more information, please contact: [phone] Documents on File Type Date Recorded Patient 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
--- NOTE | 2024-09-25 14:26 | ECG_ITS ---
Test Date: 2024-09-25 14:46:24 Measurements Intervals [place] Rate: 71 P: 150 TX: 211 QRS: -72 QRSD: 153 T: 74 QT: 415 QTc: 453 Interpretive Statements ELECTRONIC ATRIAL PACEMAKER ELECTRONIC VENTRICULAR PACEMAKER BASELINE ARTIFACT- I, II, III, AVR, AVL, AVF, V1-V6 NO FURTHER INTERPRETATION IS POSSIBLE ATYPICAL ECG Compared to ECG 09/09/2024 15:51:48 No significant changes Electronically Signed On 09-25-2024 14:54:20 CDT by Jose Varghese D.O.
--- NOTE | 2024-09-25 14:38 | ED_ITS ---
HPI - General Adult General Chief complaint: Shortness of Breath/Dyspnea Stated complaint: SHOB, K+ high , Kidney count low Time Seen by Provider: 09/25/24 14:25 History of Present Illness HPI narrative: 84-year-old female with history of heart block status post permanent Biotronik pacemaker, hypertension, dyslipidemia, diastolic dysfunction, pulmonary embolism in June 2021 treated with anticoagulation for 6 months at which time she developed anemia due to bleeding gastric ulcer, chronic kidney disease stage 3, and metastatic ovarian cancer status post chemotherapy in June 2022 presents to the emergency department for evaluation for worsening shortness of breath since being discharged. Patient did have some outpatient labs that showed worsening kidney function, worsening potassium. Patient was recently admitted for pleural effusions and fluid overload. Patient was treated with IV Lasix. Patient also had a thoracentesis with fluid analysis and pathology report showed malignant cells consistent with adenocarcinoma of unknown primary site. Patient is followed by [facility] for history of Metastatic ovarian/peritoneal carcinoma status post neoadjuvant chemotherapy then debulking surgery with total hysterectomy, BSO and total omentectomy done in April 2022. Patient is currently on maintenance treatment with Avastin. Related Data Home Medications ?Medication ?Instructions ?Recorded ?Confirmed ?Last Taken ?Type omega 2-zdy-idj-fish oil 300 1 cap PO DAILY 07/21/21 09/25/24 Unknown History mg-1,000 mg capsule (Fish Oil) psyllium husk 3.4 gram/5.4 gram 2 tsp PO DAILY PRN Constipation 09/25/21 09/25/24 Unknown History oral powder (Metamucil) ascorbate calcium (vitamin C) 500 500 mg PO DAILY 04/06/22 09/25/24 09/09/24 History mg tablet lidocaine-prilocaine 2.5 %-2.5 % 1 applic topical ONCE PRN 11/23/22 09/25/24 Unknown History topical cream port/catheter care magnesium 200 mg tablet 400 mg PO DAILY 11/23/22 09/25/24 Unknown History ondansetron 8 mg disintegrating 8 mg PO Q8H PRN Nausea 11/23/22 09/25/24 Unknown History tablet cholecalciferol (vitamin D3) 50 50 mcg PO DAILY 03/01/23 09/25/24 Unknown History mcg (2,000 unit) capsule carboxymethylcellulose 0.5 1 drp ophthalmic (eye) Q6H PRN Pain 10/17/23 09/25/24 Unknown History %-glycerin 0.9 % (PF) eye drops (Refresh Relieva PF) carboxymethylcellulose 1 1 drp EACH EYE HS 10/17/23 09/25/24 Unknown History %-glycerin 0.9 % eye gel drops (Refresh Optive) acetaminophen 650 mg 650 mg PO Q12H PRN pain 02/20/24 09/25/24 Unknown History tablet,extended release (Tylenol 8 Hour) aspirin 81 mg tablet,delayed 81 mg PO HS 08/06/24 09/25/24 Unknown History release (Adult Low Dose Aspirin) loperamide 2 mg capsule 2 mg PO QID PRN loose stool 08/06/24 09/25/24 Unknown History (Anti-Diarrheal (loperamide)) ferrous sulfate 325 mg (65 mg 325 mg PO DAILY 09/10/24 09/25/24 09/09/24 History iron) tablet amlodipine 5 mg tablet (Norvasc) 5 mg PO DAILY 09/25/24 09/25/24 09/24/24 History furosemide 40 mg tablet 40 mg PO DAILY 09/25/24 09/25/24 Unknown History Allergies Allergy/AdvReac Type Severity Reaction Status Date / Time No Known Allergies Allergy Verified 09/25/24 14:20 Review of Systems 2 Review of Systems: All systems reviewed & are unremarkable except as noted in HPI and below PMFSH Past Medical History Medical History ) Diastolic dysfunction Bleeding ulcer Pulmonary emboli (06/2021) Anxiety Anemia Overactive bladder Ovarian cancer Status post surgery and chemotherapy, currently on maintenance treatment with Avastin per Dr. Mosher Chronic GERD Osteoarthritis Hyperlipidemia Dyslipidemia Surgical History Surgical History ) History of appendectomy History of permanent cardiac pacemaker placement Biotronik pacemaker for heart block History of cataract surgery (2023) History of hysterectomy for cancer (04/2022) Status post robotic complete tumor debulking, total hysterectomy, bilateral salpingo oophorectomy, bilateral ureterolysis, and total omentectomy History of hemorrhoidectomy History of colon resection Family History Family History ) Father Cerebrovascular accident, Onset Age: 88 Mother Family history of arthritis, Onset Age: 85 Diverticulitis Social History Social History ) Social History: Surrogate medical decision maker: Darwin Wells, spouse. Code status: Full code. Smoking status: Never smoker Second hand tobacco smoke exposure: No Alcohol intake: never Substance use: never Substance use type: does not use Do You Feel Safe in your Home?: Yes Lack of Transportation: No Lack of Food: Never True Current Housing: I Have Housing Concerned About Future Housing: No Difficulty Paying Gas/Electric Bills: No Difficulty Paying for Meds: No Currently Unemployed: No Education: High School Diploma/GED Difficulty w/ Childcare or Family Care: No Living arrangements: with family Additional living arrangements comments: Lives with spouse in [place]. Occupation/Education: retired Spiritual care concerns: No Exam 2 Narrative: APPEARANCE: Ill-appearing HEAD: normocephalic, atraumatic. EYES: PERRLA/EOMI, conjunctivae clear. NOSE: Normal no drainage EARS:TMS clear with good light reflex. THROAT: Pharynx clear, no exudate. NECK: Supple. No adenopathy, no masses. RESPIRATORY: Increased work of breathing, decreased lung sounds CARDIOVASCULAR: Regular rate and rhythm without murmurs rubs or gallops. ABDOMINAL: Soft, nontender, nondistended, normal bowel sounds MUSCULOSKELETAL: Lower extremity edema bilateral NEURO: Alert. Cranial nerves II through XII intact. Good gait. Good coordination SKIN: Warm, dry. Normal Color Course Vital Signs Vital signs: Vital Signs Pulse Rate 72 09/25/24 14:38 Respiratory Rate 20 09/25/24 14:38 Blood Pressure 132/75 09/25/24 14:38 Pulse Oximetry 93 09/25/24 14:38 Oxygen Delivery Room Air 09/25/24 14:38 Pulse Rate 74 09/25/24 16:38 Respiratory Rate 19 09/25/24 16:38 Blood Pressure 120/65 09/25/24 16:38 Pulse Oximetry 97 09/25/24 16:38 Oxygen Delivery Nasal Cannula 09/25/24 15:14 Oxygen Flow Rate 2 09/25/24 15:14 Medical Decision Making MDM Narrative Medical decision making narrative: 84-year-old female presents to the emergency department for evaluation for fluid overload abnormal labs as outpatient and worsening shortness of breath. Patient was placed on 2 L of oxygen by nasal cannula for increased work of breathing. Patient was not hypoxic emergency department. Patient is afebrile with no leukocytosis and hemoglobin of 9.9 which is similar to her baseline. Patient has an INR of 1.1. Patient does have an acute hyperkalemia of 5.8 which is higher than her labs at discharge. Patient also has acute kidney injury with a creatinine of 2.87. Patient has a significantly elevated BNP of 4300. Patient was negative influenza RSV and for COVID. Chest x-ray does show evidence of pulmonary edema. Patient was treated with Lokelma, bicarb, insulin dextrose and Lasix for hyperkalemia. Lasix is also to help for her pulmonary edema. Case was discussed with the hospitalist and patient was admitted to the IMU. Differential Diagnosis Differential Diagnosis: Pneumonia, pulmonary edema, pleural effusion, hyperkalemia Vital Signs Vital Signs: Vital Signs Pulse Rate 72 09/25/24 14:38 Respiratory Rate 20 09/25/24 14:38 Blood Pressure 132/75 09/25/24 14:38 Pulse Oximetry 93 09/25/24 14:38 Oxygen Delivery Room Air 09/25/24 14:38 Pulse Rate 74 09/25/24 16:38 Respiratory Rate 19 09/25/24 16:38 Blood Pressure 120/65 09/25/24 16:38 Pulse Oximetry 97 09/25/24 16:38 Oxygen Delivery Nasal Cannula 09/25/24 15:14 Oxygen Flow Rate 2 09/25/24 15:14 Lab Data Lab results reviewed: Yes I reviewed the patient's lab results. 09/25/24 14:36 09/25/24 14:36 Labs: Lab Results 09/25/24 09/25/24 Range/Units 14:36 15:11 WBC 6.4 (4.5-10.0) K/mm3 RBC 3.34 L (4.2-5.4) M/mm3 Hgb 9.9 L (12.0-15.0) g/dL Hct 32.0 L (37.0-47.0) % MCV 95.8 (80-100) fl MCH 29.6 (26-34) pg MCHC 30.9 L (32-36) g/dl RDW 16.7 H (11.5-14.5) % Plt Count 350 (150-375) k/mm3 MPV 8.4 (7.4-10.4) fl Immature Gran % (Auto) 0.5 (0-0.5) % Neut % (Auto) 75.7 H (45.5-73.1) % Lymph % (Auto) 10.6 L (18.3-44.2) % Dukes % (Auto) 8.2 (2.6-8.5) % Eos % (Auto) 4.2 (0-4.4) % Baso % (Auto) 0.8 (0.2-1.2) % Lymph # (Auto) 0.68 L (0.9-3.2) K/mm3 Dukes # (Auto) 0.5 (0.1-0.6) K/mm3 Eos # (Auto) 0.3 (0-0.3) K/mm3 Baso # (Auto) 0.1 (0.0-0.1) K/mm3 Abs Immat Gran (auto) 0.03 (0.00-0.031) K/mm3 Absolute Neuts (auto) 4.9 (1.3-6.7) K/mm3 Absolute Nucleated RBC 0.000 (0.0-0.012) K/mm3 Nucleated RBC % 0.0 (0.0-0.2) % PT 14.3 (11.1-14.7) Seconds INR 1.1 APTT 31.2 (22.3-36.8) Seconds Sodium 139 (137-145) mmol/L Potassium 5.8 H (3.4-5.0) mmol/L Chloride 112 H (98-107) mmol/L Carbon Dioxide 17 L (22-30) mmol/L Anion Gap 10 (4-12) mmol/L BUN 81 H (7-17) mg/dL Creatinine 2.87 H (0.7-1.0) mg/dL Estim Creat Clear Calc 11 ml/min Estimated GFR 16 L (59 - ) Glucose 121 H (65-110) mg/dL POC Capillary Glucose 131 H (65-105) mg/dl Calcium 8.5 (8.4-10.2) mg/dL Magnesium 3.2 H (1.6-2.3) mg/dL Total Bilirubin 0.7 (0.2-1.3) mg/dL AST 24 (14-36) U/L ALT 16 (6-35) U/L Alkaline Phosphatase 127 H (38-126) U/L NT-Pro-B Natriuret Pep 4330 H (19.9-100) pg/mL Total Protein 7.0 (6.3-8.2) g/dL Albumin 3.5 (3.5-5.1) g/dL TSH (Reflex) 3.740 (0.465-4.68) uIU/mL Influenza A (RT-PCR) Negative (Negative) Influenza B (RT-PCR) Negative (Negative) RSV (RT-PCR) Negative (Negative) SARS-CoV-2 RNA (RT-PCR) Negative (Negative) Discharge Plan Discharge Clinical Impression: Pulmonary edema, Pleural effusion, Acute dyspnea, Acute hyperkalemia, Acute kidney injury Patient Disposition: Still a Patient Condition: Serious
[2024-09-25 14:45] LABS: Basophils Absolute Auto 0.1 K/mm3 (0.0-0.1); Basophils Percent Auto 0.8 % (0.2-1.2); Eosinophils Absolute Auto 0.3 K/mm3 (0-0.3); Eosinophils Percent Auto 4.2 % (0-4.4); Hemoglobin 9.9 g/dL (12.0-15.0); Immature Granulocyte Absolute 0.03 K/mm3 (0.00-0.031); Immature Granulocyte Percent A 0.5 % (0-0.5); Lymphocytes Absolute Auto 0.68 K/mm3 (0.9-3.2); Lymphocytes Percent Auto 10.6 % (18.3-44.2); Mean Corpuscular HGB Conc 30.9 g/dl (32-36); Mean Corpuscular Hemoglobin 29.6 pg (26-34); Mean Corpuscular Volume 95.8 fl (80-100); Mean Platelet Volume 8.4 fl (7.4-10.4); Monocytes Absolute Auto 0.5 K/mm3 (0.1-0.6); Monocytes Percent Auto 8.2 % (2.6-8.5); Neutrophils Absolute Auto 4.9 K/mm3 (1.3-6.7); Neutrophils Percent Auto 75.7 % (45.5-73.1); Platelet Count Result 350 k/mm3 (150-375); Red Blood Count 3.34 M/mm3 (4.2-5.4); Red Cell Distribution Width 16.7 % (11.5-14.5); White Blood Count 6.4 K/mm3 (4.5-10.0)
[2024-09-25 14:54] LABS: Alanine Aminotransferase 16 U/L (6-35); Albumin Level 3.5 g/dL (3.5-5.1); Alkaline Phosphatase 127 U/L (38-126); Anion Gap 10 mmol/L (4-12); Aspartate Amino Transferase 24 U/L (14-36); Bilirubin,Total 0.7 mg/dL (0.2-1.3); Blood Urea Nitrogen 81 mg/dL (7-17); Calcium 8.5 mg/dL (8.4-10.2); Carbon Dioxide 17 mmol/L (22-30); Chloride 112 mmol/L (98-107); Estimated CRCL calculation 11 ml/min; Estimated Glomerular Filt Rate 16; Glucose 121 mg/dL (65-110); Magnesium 3.2 mg/dL (1.6-2.3); Potassium 5.8 mmol/L (3.4-5.0); Sodium 139 mmol/L (137-145)
[2024-09-25 14:59] LABS: INR 1.1; Partial Thromboplastin Time 31.2 Seconds (22.3-36.8); Prothrombin Time 14.3 Seconds (11.1-14.7)
[2024-09-25 15:03] LABS: NT Pro B Type Natriuretic Pept 4330 pg/mL (19.9-100)
[2024-09-25 15:13] LABS: Glucose Point of Care 131 mg/dl (65-105)
[2024-09-25 15:22] LABS: Influenza A QL RT-PCR Negative (Negative); Influenza B QL RT-PCR Negative (Negative); RSV RNA, RT-PCR Negative (Negative); SARS-CoV-2 RNA PCR Negative (Negative)
--- NOTE | 2024-09-25 15:25 | P.HP_ITS ---
H&P: HPI History of Present Illness Date/Time: 09/25/24 15:25 Chief Complaint: Shortness of breath and hyperkalemia Narrative: 84-year-old female past medical history of ovarian cancer, PE, hypertension and hyperlipidemia presents the hospital with shortness of breath and hyperkalemia on outside labs. Patient states that she does not know of a history of congestive heart failure. She states that she has had a pleural effusion in the past before when she was originally diagnosed with cancer. Patient had gone to her primary care provider due to her shortness of breath. She was found to have hyperkalemia and was sent to the emergency room for further evaluation. Patient states she feels much better after diuresis she had about 2 L out in urine. In the ED her hemoglobin is 9.9 which is around baseline, potassium is 5.8, BUN is 81, creatinine is 2.87, with baseline being around 1.8, GFR 16, transient is 3.2, alkaline phos is 127, BNP is 4330, influenza a B, RSV and COVID negative. Chest x-ray shows Patient was given hyperkalemia protocol in the ED with Lasix due to pulmonary edema. Review of Systems Review of Systems: 12 systems were reviewed and are negativ e except for as per HPI. [facility] Past Medical History Medical History ) Diastolic dysfunction Bleeding ulcer Pulmonary emboli (06/2021) Anxiety Anemia Overactive bladder Ovarian cancer Status post surgery and chemotherapy, currently on maintenance treatment with Avastin per Dr. Mosher Chronic GERD Osteoarthritis Hyperlipidemia Dyslipidemia Surgical History Surgical History ) History of appendectomy History of permanent cardiac pacemaker placement Biotronik pacemaker for heart block History of cataract surgery (2023) History of hysterectomy for cancer (04/2022) Status post robotic complete tumor debulking, total hysterectomy, bilateral salpingo oophorectomy, bilateral ureterolysis, and total omentectomy History of hemorrhoidectomy History of colon resection Family History Family History ) Father Cerebrovascular accident, Onset Age: 88 Mother Family history of arthritis, Onset Age: 85 Diverticulitis Social History Social History ) Social History: Surrogate medical decision maker: Darwin Wells, spouse. Code status: Full code. Smoking status: Never smoker Second hand tobacco smoke exposure: No Alcohol intake: never Substance use: never Substance use type: does not use Do You Feel Safe in your Home?: Yes Lack of Transportation: No Lack of Food: Never True Current Housing: I Have Housing Concerned About Future Housing: No Difficulty Paying Gas/Electric Bills: No Difficulty Paying for Meds: No Currently Unemployed: No Education: High School Diploma/GED Difficulty w/ Childcare or Family Care: No Living arrangements: with family Additional living arrangements comments: Lives with spouse in [place]. Occupation/Education: retired Spiritual care concerns: No Meds Home Medications and Allergies Home Medications ?Medication ?Instructions ?Recorded ?Confirmed ?Type omega 5-[id number]-gwn-fish oil 300 1 cap PO DAILY 07/21/21 09/25/24 History mg-1,000 mg capsule (Fish Oil) psyllium husk 3.4 gram/5.4 gram 2 tsp PO DAILY Constipation 09/25/21 09/25/24 History oral powder (Metamucil) cyanocobalamin (vitamin B-12) 1,000 mcg PO DAILY #30 caps 12/05/21 09/25/24 Rx 1,000 mcg capsule ascorbate calcium (vitamin C) 500 500 mg PO DAILY 04/06/22 09/25/24 History mg tablet lidocaine-prilocaine 2.5 %-2.5 % 1 applic topical ONCE PRN 11/23/22 09/25/24 History topical cream port/catheter care magnesium 200 mg tablet 400 mg PO DAILY 11/23/22 09/25/24 History ondansetron 8 mg disintegrating 8 mg PO Q8H PRN Nausea 11/23/22 09/25/24 History tablet cholecalciferol (vitamin D3) 50 50 mcg PO DAILY 03/01/23 09/25/24 History mcg (2,000 unit) capsule albuterol sulfate 90 mcg/actuation 2 inh inhalation Q4H PRN shortness 09/18/23 09/25/24 Rx aerosol inhaler of breath or wheezing #6.7 grams alprazolam 0.25 mg tablet 0.25 mg PO TID PRN anxiety #90 tabs 09/18/23 09/25/24 Rx carboxymethylcellulose 0.5 1 drp ophthalmic (eye) Q6H PRN Pain 10/17/23 09/25/24 History %-glycerin 0.9 % (PF) eye drops (Refresh Relieva PF) carboxymethylcellulose 1 1 drp EACH EYE HS 10/17/23 09/25/24 History %-glycerin 0.9 % eye gel drops (Refresh Optive) acetaminophen 650 mg 650 mg PO Q12H PRN pain 02/20/24 09/25/24 History tablet,extended release (Tylenol 8 Hour) celecoxib 200 mg capsule (Celebrex) 200 mg PO DAILY #90 caps 05/11/24 09/25/24 Rx oxybutynin chloride 10 mg 10 mg PO DAILY #90 tabs 08/03/24 09/25/24 Rx tablet,extended release 24 hr pravastatin 40 mg tablet 40 mg PO QHS #90 tabs 08/05/24 09/25/24 Rx aspirin 81 mg tablet,delayed 81 mg PO HS 08/06/24 09/25/24 History release (Adult Low Dose Aspirin) loperamide 2 mg capsule 2 mg PO QID PRN loose stool 08/06/24 09/25/24 History (Anti-Diarrheal (loperamide)) pantoprazole 40 mg tablet,delayed 40 mg PO QHS #90 tabs 08/06/24 09/25/24 Rx release hydralazine 50 mg tablet 50 mg PO TID #60 tabs 08/18/24 09/25/24 Rx carvedilol 12.5 mg tablet 12.5 mg PO Q12H #60 tabs 09/03/24 09/25/24 Rx ferrous sulfate 325 mg (65 mg 325 mg PO DAILY 09/10/24 09/25/24 History iron) tablet amlodipine 5 mg tablet (Norvasc) 5 mg PO DAILY 09/25/24 09/25/24 History furosemide 40 mg tablet 20 mg PO BID 09/25/24 09/25/24 History Allergies Allergy/AdvReac Type Severity Reaction Status Date / Time No Known Allergies Allergy Verified 09/25/24 14:20 Vital Signs Vital Signs - 24 hr 09/25/24 14:38 09/25/24 14:38 09/25/24 15:14 Pulse Rate 72 79 Respiratory Rate 20 17 Blood Pressure 132/75 141/61 H Pulse Oximetry 93 93 96 Oxygen Delivery Room Air Room Air Oxygen Flow Rate 09/25/24 15:14 Pulse Rate Respiratory Rate Blood Pressure Pulse Oximetry 95 Oxygen Delivery Nasal Cannula Oxygen Flow Rate 2 Exam Narrative: General: well appearing, appears stated age. HEENT: normocephalic, atraumatic. Mucous membranes moist. EOMI, PERRLA, bilateral sclera anicteric, no conjunctival injection. Neck supple without JVD, lymphadenopathy, or bruit. Respiratory: clear to ascultation bilaterally. No rales/rhonic/wheezes. Cardiovascular: Regular rate and rhythm, normal S1-S2 upon ascultation. No murmurs, rubs, or clicks. PMI is nondisplaced, capillary refill less than 3 second. Abdomen: Soft, round, no pulsatile masses, nondistended and nontender. No rebound, no guarding. No CVA tenderness, no hepatosplenomegaly. Bowel sounds present to all four quadrants. No high pitch or tinkling sounds, resonant to percussion. Extremities: No cyanosis, clubbing, or edema present. Pulses are palpable 2/2. Active ROM to all four extremities. Neuro: Alert and orientated x 4. PERRLA. Cranial nerves 2-12 intact without focal deficit. Skin: Warm, dry, and intact, without rash, erythema, or lesion. Psych: pleasant, cooperative, normal speech, normal affect, no hallucinations, no dysarthia H&P: Results Labs Labs: Short CBC 09/25/24 Range/Units 14:36 WBC 6.4 (4.5-10.0) K/mm3 Hgb 9.9 L (12.0-15.0) g/dL Hct 32.0 L (37.0-47.0) % Plt Count 350 (150-375) k/mm3 BMP 09/25/24 14:36 Sodium 139 Potassium 5.8 H Chloride 112 H Carbon Dioxide 17 L BUN 81 H Creatinine 2.87 H Glucose 121 H Calcium 8.5 Liver Function 09/25/24 Range/Units 14:36 Total Bilirubin 0.7 (0.2-1.3) mg/dL AST 24 (14-36) U/L ALT 16 (6-35) U/L Alkaline Phosphatase 127 H (38-126) U/L Albumin 3.5 (3.5-5.1) g/dL Assessment and Plan Assessment and plan (1) Acute hyperkalemia: Code(s): E87.5 - Hyperkalemia Status: Acute Assessment and Plan: Hyperkalemia protocol given in ED Repeat potassium in 6 hours 5.4 Treated again with hyperkalemia protocol Repeat BMP in morning Telemetry monitoring (2) CHF exacerbation: Qualifiers: Heart failure type: unspecified Qualified Code(s): I50.9 - Heart failure, unspecified Code(s): I50.9 - Heart failure, unspecified Status: Acute Assessment and Plan: Unknown if patient has history of CHF, it is listed in her chart however she does not know about it Cardiology consulted IV Lasix b.i.d. Hold home oral Lasix Fluid restriction of 1800 Heart healthy diet Daily weight (3) Pleural effusion: Code(s): J90 - Pleural effusion, not elsewhere classified Status: Acute Assessment and Plan: Likely due to CHF Repeat chest x-ray in the morning (4) Essential hypertension: Code(s): I10 - Essential (primary) hypertension Status: Chronic Assessment and Plan: Restart hydralazine and Norvasc (5) Anxiety: Code(s): F41.9 - Anxiety disorder, unspecified Status: Acute Assessment and Plan: Continue Xanax (6) Osteoarthritis: Code(s): M19.90 - Unspecified osteoarthritis, unspecified site Status: Chronic Assessment and Plan: Continue Celebrex Quality VTE Prophylaxis VTE prophylaxis: mechanical ordered and pharmacologic ordered Hospitalist MIPS Advance Care Plan I have confirmed that the patient's Advanced Care Plan is present, code status is documented, or surrogate decision maker is listed in patient medical record.: Yes Medication Reconciliation I have utilized all available resources to obtain, update and review the patients current medications (includes all prescriptions, OTC, herbals, cannabi s, and nutritional supplements).: Yes
[2024-09-25] MEDS: DEXTROSE 50% 25 GM/50 ML SYRINGE IV PUSH (15:51)
[2024-09-25] MEDS: SODIUM ZIRCONIUM CYCLOSILICATE 10 GM POWD.PACK PO (15:51)
[2024-09-25] MEDS: SODIUM BICARBONATE 8.4% 50 MEQ/50 ML SYRINGE IV PUSH (15:51)
[2024-09-25] MEDS: FUROSEMIDE INJ 40 MG/4 ML VIAL 20 MG IV PUSH (15:52)
[2024-09-25] MEDS: INSULIN HUMAN REGULAR (*BKC) 100 UNITS/ML IV PUSH (15:52)
[2024-09-25 16:36] LABS: Glucose Point of Care 125 mg/dl (65-105)
--- NOTE | 2024-09-25 17:26 | ECG_ITS ---
Test Date: 2024-09-25 14:52:22 Measurements Intervals [place] Rate: 73 P: 224 ND: 204 QRS: -73 QRSD: 158 T: 76 QT: 422 QTc: 466 Interpretive Statements ELECTRONIC ATRIAL PACEMAKER ELECTRONIC VENTRICULAR PACEMAKER BASELINE ARTIFACT- I, II, III, AVR, AVL, AVF, V1-V6 NO FURTHER INTERPRETATION IS POSSIBLE ATYPICAL ECG Compared to ECG 09/25/2024 14:46:24 No significant changes Electronically Signed On 09-25-2024 17:28:51 CDT by Jose Varghese D.O.
--- NOTE | 2024-09-25 17:51 | PC.NURSE ---
Patient arrived. On tele. Admission complete.
[2024-09-25 18:10] LABS: Add Urine Microscopic? NO; Appearance Urine Clear (Clear); Bilirubin Urine Negative (Negative); Blood Urine Negative (Negative); Color Urine Yellow (Yellow); Glucose Urine UA Negative (Negative); Ketones Urine Negative (Negative); Leukocyte Esterase Ur Negative LEU/UL (Negative); Nitrate Urine Negative (Negative); Protein Urine Negative (Negative); Urobilinogen Urine 0.2 mg/dL (<2.0)
[2024-09-25 21:12] LABS: Potassium 5.4 mmol/L (3.4-5.0)
[2024-09-25] MEDS: FUROSEMIDE INJ 40 MG/4 ML VIAL IV PUSH (21:20)
[2024-09-25] MEDS: ASPIRIN 81 MG ENTERIC TABLET PO (21:20)
[2024-09-25] MEDS: PRAVASTATIN SODIUM 20 MG TABLET 40 MG PO (21:21)
[2024-09-25] MEDS: ALPRAZolam (*CRX) 0.25 MG TABLET PO (22:59)
[2024-09-26] VITALS (23 sets, daily range): BP systolic 122–156; BP diastolic 59–85; PULSE 61–80; RESP 16–20; TEMP 36.5–37; O2SAT 92–97
[2024-09-26] MEDS: carvediloL 12.5 MG TABLET PO ×3 (00:48→22:05)
[2024-09-26] MEDS: hydrALAZINE HCL 50 MG TABLET PO ×4 (00:48→17:47)
[2024-09-26] MEDS: DEXTROSE 50% 25 GM/50 ML SYRINGE IV PUSH (00:53)
[2024-09-26] MEDS: INSULIN HUMAN REGULAR (*BKC) 100 UNITS/ML 6 UNITS IV PUSH (00:56)
[2024-09-26] MEDS: SODIUM ZIRCONIUM CYCLOSILICATE 10 GM POWD.PACK PO (00:57)
[2024-09-26 01:00] LABS: Glucose Point of Care 88 mg/dl (65-105)
[2024-09-26 04:04] LABS: Basophils Percent Auto 0.5 % (0.2-1.2); Eosinophils Absolute Auto 0.3 K/mm3 (0-0.3); Hematocrit 27.5 % (37.0-47.0); Hemoglobin 8.6 g/dL (12.0-15.0); Immature Granulocyte Absolute 0.03 K/mm3 (0.00-0.031); Immature Granulocyte Percent A 0.5 % (0-0.5); Lymphocytes Absolute Auto 0.72 K/mm3 (0.9-3.2); Lymphocytes Percent Auto 12.4 % (18.3-44.2); Mean Corpuscular HGB Conc 31.3 g/dl (32-36); Mean Corpuscular Volume 95.8 fl (80-100); Mean Platelet Volume 8.3 fl (7.4-10.4); Monocytes Absolute Auto 0.8 K/mm3 (0.1-0.6); Monocytes Percent Auto 13.4 % (2.6-8.5); Neutrophils Percent Auto 68.2 % (45.5-73.1); Platelet Count Result 265 k/mm3 (150-375); Red Blood Count 2.87 M/mm3 (4.2-5.4); Red Cell Distribution Width 16.6 % (11.5-14.5); White Blood Count 5.8 K/mm3 (4.5-10.0)
[2024-09-26 04:15] LABS: Anion Gap 11 mmol/L (4-12); Blood Urea Nitrogen 75 mg/dL (7-17); Calcium 8.1 mg/dL (8.4-10.2); Carbon Dioxide 19 mmol/L (22-30); Chloride 111 mmol/L (98-107); Estimated CRCL calculation 12 ml/min; Estimated Glomerular Filt Rate 18; Glucose 74 mg/dL (65-110); Potassium 4.7 mmol/L (3.4-5.0); Sodium 141 mmol/L (137-145)
[2024-09-26 08:51] LABS: Iron 28 ug/dL (37-170)
[2024-09-26 09:01] LABS: Percent Iron Saturation 12 % (20-50)
--- NOTE | 2024-09-26 09:54 | P.PNCA_ITS ---
Progress Note: A&P Assessment and Plan (1) Pacemaker: Code(s): Z95.0 - Presence of cardiac pacemaker Status: Acute Plan If cardiology consultation is desired please consult Dr. Varghese, her established physician. I will not submit charges for reviewing this patient's chart today Satish Holder MD [facility] Subjective Date/time seen: Date of service: 09/26/24 09:54 Interval history: 84-year-old woman with history of heart block and cardiac pacemaker as well as history of metastatic ovarian cancer. Consulted to see this patient today. Upon review of her chart it is clear she is a patient of Dr. Varghese Objective Data Vital Signs Vital Signs: Vital Signs - 24 hr 09/25/24 14:38 09/25/24 14:38 09/25/24 15:14 Temperature Pulse Rate 72 79 Respiratory Rate 20 17 Blood Pressure 132/75 141/61 H Pulse Oximetry 93 93 96 Oxygen Delivery Room Air Room Air Oxygen Flow Rate Fraction of Inspired Oxygen 09/25/24 15:14 09/25/24 16:38 09/25/24 17:13 Temperature 36.6 C Pulse Rate 74 66 Respiratory Rate 19 18 Blood Pressure 120/65 130/59 L Pulse Oximetry 95 97 97 Oxygen Delivery Nasal Cannula Oxygen Flow Rate 2 Fraction of Inspired Oxygen 09/25/24 17:52 09/25/24 18:33 09/25/24 20:00 Temperature 36.3 C L Pulse Rate 66 67 65 Respiratory Rate 16 Blood Pressure 127/86 Pulse Oximetry 95 Oxygen Delivery Oxygen Flow Rate Fraction of Inspired Oxygen 09/25/24 20:28 09/25/24 21:15 09/25/24 22:00 Temperature Pulse Rate 67 66 Respiratory Rate 16 Blood Pressure Pulse Oximetry 93 95 Oxygen Delivery Nasal Cannula Nasal Cannula Oxygen Flow Rate 2 2 Fraction of Inspired Oxygen 28 09/26/24 00:00 09/26/24 00:00 09/26/24 00:48 Temperature 36.5 C Pulse Rate 71 73 79 Respiratory Rate 18 Blood Pressure 156/80 H Pulse Oximetry 95 Oxygen Delivery Oxygen Flow Rate Fraction of Inspired Oxygen 09/26/24 00:50 09/26/24 02:00 09/26/24 04:00 Temperature Pulse Rate 71 61 63 Respiratory Rate 18 Blood Pressure Pulse Oximetry 95 Oxygen Delivery Nasal Cannula Oxygen Flow Rate 2 Fraction of Inspired Oxygen 09/26/24 04:00 09/26/24 04:00 09/26/24 04:30 Temperature 36.6 C Pulse Rate 62 62 63 Respiratory Rate 18 18 16 Blood Pressure 123/59 L Pulse Oximetry 94 94 93 Oxygen Delivery Nasal Cannula Nasal Cannula Oxygen Flow Rate 2 1 Fraction of Inspired Oxygen 09/26/24 06:00 09/26/24 08:02 Temperature 36.9 C Pulse Rate 66 71 Respiratory Rate 18 Blood Pressure 152/63 H Pulse Oximetry 94 Oxygen Delivery Oxygen Flow Rate Fraction of Inspired Oxygen Intake/Output Intake/Output: Intake & Output 09/23/24 09/24/24 09/25/24 09/26/24 23:59 23:59 23:59 23:59 Intake Total 240 240 Output Total 0 2150 Balance 240 -1910 Meds/Results Medications: Active Medications Generic Name Dose Route Start Last Admin Trade Name Freq PRN Reason Stop Dose Admin Acetaminophen 650 mg 09/25/24 18:25 Acetaminophen 325 Mg Tablet PO Q4H PRN Mild Pain (1-3) or Fever Albuterol 2 puff 09/25/24 18:32 Albuterol Sulfate (*Sp) Aerosol 1 Puff INHALATION Q4H PRN shortness of breath or wheezing Alprazolam 0.25 mg 09/25/24 18:32 09/25/24 22:59 Alprazolam (*Crx) 0.25 Mg Tablet PO 0.25 mg TID PRN Administration anxiety Amlodipine Besylate 5 mg 09/26/24 09:00 Amlodipine Besylate 5 Mg Tablet PO DAILY MIS Aspirin 81 mg 09/25/24 21:00 09/25/24 21:20 Aspirin 81 Mg Enteric Tablet PO 81 mg HS MIS Administration Carvedilol 12.5 mg 09/25/24 21:40 09/26/24 00:48 Carvedilol 12.5 Mg Tablet PO 12.5 mg Q12HR MIS Administration Celecoxib 200 mg 09/26/24 09:00 Celecoxib 200 Mg Capsule PO DAILY MIS Dextrose 12.5 gm 09/25/24 15:00 Dextrose 50% 25 Gm/50 Ml Syringe IV PUSH PRN PRN Hypoglycemia Protocol Enoxaparin Sodium 30 mg 09/26/24 09:00 Enoxaparin 30 Mg/0.3 Ml Syringe SUB-Q DAILY MIS Furosemide 40 mg 09/25/24 21:00 09/25/24 21:20 Furosemide Inj 40 Mg/4 Ml Vial IV PUSH 40 mg Q12HR MIS Administration Glucagon 1 mg 09/25/24 15:00 Glucagon For Inj 1 Mg Vial IM PRN PRN Hypoglycemia Protocol Glucose 15 gm 09/25/24 15:00 Glucose Oral Gel 15 Gm Of Glucse In 37.5 Gm Tube PO PRN PRN Hypoglycemia Protocol Hydralazine HCl 50 mg 09/25/24 21:50 09/26/24 00:48 Hydralazine Hcl 50 Mg Tablet PO 50 mg TID MIS Administration Dextrose 1,000 mls @ 100 mls/hr 09/25/24 15:00 Dextrose 5% 1,000 Ml IVPB PRN PRN Hypoglycemia Protocol Oxybutynin Chloride 10 mg 09/26/24 09:00 Oxybutynin Chloride Xl 5 Mg Tab.Er.24 PO DAILY MIS Perflutren Lipid Microsphere 0 ml 09/25/24 18:29 Perflutren Lipid Microspheres 1.5 Ml Vial Diluted To 10 Ml Total Volume IV PUSH 09/28/24 18:29 ONCE PRN adequate visualization Protocol Pravastatin Sodium 40 mg 09/25/24 21:00 09/25/24 21:21 Pravastatin Sodium 20 Mg Tablet PO 40 mg QHS MIS Administration Radiology Results: ITS Impressions Chest X-Ray 09/26/24 06:56 IMPRESSION: 1. Persistent diffuse bilateral lung disease which could represent atelectasis, mild pulmonary edema, pneumonia or some combination of. 2. Small left pleural effusion. 3. Cardiomegaly. Labs Labs: Laboratory Results - last 24 hr 09/25/24 09/25/24 09/25/24 14:25 14:36 15:11 WBC 6.4 RBC 3.34 L Hgb 9.9 L Hct 32.0 L MCV 95.8 MCH 29.6 MCHC 30.9 L RDW 16.7 H Plt Count 350 MPV 8.4 Immature Gran % (Auto) 0.5 Neut % (Auto) 75.7 H Lymph % (Auto) 10.6 L Gordon % (Auto) 8.2 Eos % (Auto) 4.2 Baso % (Auto) 0.8 Lymph # (Auto) 0.68 L Gordon # (Auto) 0.5 Eos # (Auto) 0.3 Baso # (Auto) 0.1 Abs Immat Gran (auto) 0.03 Absolute Neuts (auto) 4.9 Absolute Nucleated RBC 0.000 Nucleated RBC % 0.0 PT 14.3 INR 1.1 APTT 31.2 Sodium 139 Potassium 5.8 H Chloride 112 H Carbon Dioxide 17 L Anion Gap 10 BUN 81 H Creatinine 2.87 H Estim Creat Clear Calc 11 Estimated GFR 16 L Glucose 121 H POC Capillary Glucose 131 H Calcium 8.5 Magnesium 3.2 H Iron TIBC % Saturation Ferritin Total Bilirubin 0.7 AST 24 ALT 16 Alkaline Phosphatase 127 H NT-Pro-B Natriuret Pep 4330 H Total Protein 7.0 Albumin 3.5 TSH (Reflex) 3.740 Urine Color Yellow Urine Appearance Clear Urine pH 5.0 Ur Specific [place] 1.010 Urine Protein Negative Urine Glucose (UA) Negative Urine Ketones Negative Ur Blood (Man) Negative Urine Nitrate Negative Urine Bilirubin Negative Urine Urobilinogen 0.2 Leukocyte Esterase Rfl Negative Influenza A (RT-PCR) Negative Influenza B (RT-PCR) Negative RSV (RT-PCR) Negative SARS-CoV-2 RNA (RT-PCR) Negative 09/25/24 09/25/24 09/26/24 16:34 21:00 00:52 WBC RBC Hgb Hct MCV MCH MCHC RDW Plt Count MPV Immature Gran % (Auto) Neut % (Auto) Lymph % (Auto) Gordon % (Auto) Eos % (Auto) Baso % (Auto) Lymph # (Auto) [place] # (Auto) Eos # (Auto) Baso # (Auto) Abs Immat Gran (auto) Absolute Neuts (auto) Absolute Nucleated RBC Nucleated RBC % PT INR APTT Sodium Potassium 5.4 H Chloride Carbon Dioxide Anion Gap BUN Creatinine Estim Creat Clear Calc Estimated GFR Glucose POC Capillary Glucose 125 H 88 Calcium Magnesium Iron TIBC % Saturation Ferritin Total Bilirubin AST ALT Alkaline Phosphatase NT-Pro-B Natriuret Pep Total Protein Albumin TSH (Reflex) Urine Color Urine Appearance Urine pH Ur Specific [place] Urine Protein Urine Glucose (UA) Urine Ketones Ur Blood (Man) Urine Nitrate Urine Bilirubin Urine Urobilinogen Leukocyte Esterase Rfl Influenza A (RT-PCR) Influenza B (RT-PCR) RSV (RT-PCR) SARS-CoV-2 RNA (RT-PCR) 09/26/24 09/26/24 03:46 03:48 WBC 5.8 RBC 2.87 L Hgb 8.6 L Hct 27.5 L MCV 95.8 MCH 30.0 MCHC 31.3 L RDW 16.6 H Plt Count 265 MPV 8.3 Immature Gran % (Auto) 0.5 Neut % (Auto) 68.2 Lymph % (Auto) 12.4 L [place] % (Auto) 13.4 H Eos % (Auto) 5.0 H Baso % (Auto) 0.5 Lymph # (Auto) 0.72 L Gordon # (Auto) 0.8 H Eos # (Auto) 0.3 Baso # (Auto) 0.0 Abs Immat Gran (auto) 0.03 Absolute Neuts (auto) 4.0 Absolute Nucleated RBC 0.000 Nucleated RBC % 0.0 PT INR APTT Sodium 141 Potassium 4.7 Chloride 111 H Carbon Dioxide 19 L Anion Gap 11 BUN 75 H Creatinine 2.49 H Estim Creat Clear Calc 12 Estimated GFR 18 L Glucose 74 POC Capillary Glucose Calcium 8.1 L Magnesium Iron 28 L TIBC 235 L % Saturation 12 L Ferritin 61.80 Total Bilirubin AST ALT Alkaline Phosphatase NT-Pro-B Natriuret Pep Total Protein Albumin TSH (Reflex) Urine Color Urine Appearance Urine pH Ur Specific [place] Urine Protein Urine Glucose (UA) Urine Ketones Ur Blood (Man) Urine Nitrate Urine Bilirubin Urine Urobilinogen Leukocyte Esterase Rfl Influenza A (RT-PCR) Influenza B (RT-PCR) RSV (RT-PCR) SARS-CoV-2 RNA (RT-PCR)
[2024-09-26] MEDS: FUROSEMIDE INJ 40 MG/4 ML VIAL IV PUSH ×2 (10:07→22:05)
[2024-09-26] MEDS: amLODIPine BESYLATE 5 MG TABLET PO (10:07)
[2024-09-26] MEDS: CELECOXIB 200 MG CAPSULE PO (10:07)
[2024-09-26] MEDS: oxyBUTYnin CHLORIDE XL 5 MG TAB.ER.24 10 MG PO (10:07)
[2024-09-26] MEDS: ENOXAPARIN 30 MG/0.3 ML SYRINGE SUB-Q (10:08)
--- NOTE | 2024-09-26 11:57 | P.PNIM_ITS ---
Progress Note: A&P Assessment and Plan (1) Acute hyperkalemia: Code(s): E87.5 - Hyperkalemia Status: Acute Assessment and Plan: Hyperkalemia protocol given in ED Repeat potassium in 6 hours 5.4 Treated again with hyperkalemia protocol Repeat BMP in morning Telemetry monitoring (2) CHF exacerbation: Qualifiers: Heart failure type: unspecified Qualified Code(s): I50.9 - Heart failure, unspecified Code(s): I50.9 - Heart failure, unspecified Status: Acute Assessment and Plan: Unknown if patient has history of CHF, it is listed in her chart however she does not know about it IV Lasix b.i.d. Hold home oral Lasix Fluid restriction of 1800 Heart healthy diet Daily weight Cardiology consulted (3) Pleural effusion: Code(s): J90 - Pleural effusion, not elsewhere classified Status: Acute Assessment and Plan: Likely due to CHF Repeat chest x-ray in the morning CT chest pending (4) Essential hypertension: Code(s): I10 - Essential (primary) hypertension Status: Chronic Assessment and Plan: Restart hydralazine and Norvasc (5) Anxiety: Code(s): F41.9 - Anxiety disorder, unspecified Status: Acute Assessment and Plan: Continue Xanax (6) Osteoarthritis: Code(s): M19.90 - Unspecified osteoarthritis, unspecified site Status: Chronic Assessment and Plan: Continue Celebrex Plan Anemia with iron deficiency Hb 8.4, isat 12 FOBT pending Venofer 500/1000 DVT prophylaxis on Sq Lovenox Subjective Date/time seen: 09/26/24 11:57 Interval history: Comfortable at bedside Review of Systems Review of Systems: 12 systems were reviewed and are negativ e except for as per HPI. Exam Narrative: General: well appearing, appears stated age. HEENT: normocephalic, atraumatic. Mucous membranes moist. EOMI, PERRLA, bilateral sclera anicteric, no conjunctival injection. Neck supple without JVD, lymphadenopathy, or bruit. Respiratory: clear to ascultation bilaterally. No rales/rhonic/wheezes. Cardiovascular: Regular rate and rhythm, normal S1-S2 upon ascultation. No murmurs, rubs, or clicks. PMI is nondisplaced, capillary refill less than 3 second. Abdomen: Soft, round, no pulsatile masses, nondistended and nontender. No rebound, no guarding. No CVA tenderness, no hepatosplenomegaly. Bowel sounds present to all four quadrants. No high pitch or tinkling sounds, resonant to percussion. Extremities: No cyanosis, clubbing, or edema present. Pulses are palpable 2/2. Active ROM to all four extremities. Neuro: Alert and orientated x 4. PERRLA. Cranial nerves 2-12 intact without focal deficit. Skin: Warm, dry, and intact, without rash, erythema, or lesion. Psych: pleasant, cooperative, normal speech, normal affect, no hallucinations, no dysarthia Objective Data Vital Signs Vital Signs: Vital Signs - 24 hr 09/25/24 14:38 09/25/24 14:38 09/25/24 15:14 Temperature Pulse Rate 72 79 Respiratory Rate 20 17 Blood Pressure 132/75 141/61 H Pulse Oximetry 93 93 96 Oxygen Delivery Room Air Room Air Oxygen Flow Rate Fraction of Inspired Oxygen 09/25/24 15:14 09/25/24 16:38 09/25/24 17:13 Temperature 97.8 F Pulse Rate 74 66 Respiratory Rate 19 18 Blood Pressure 120/65 130/59 L Pulse Oximetry 95 97 97 Oxygen Delivery Nasal Cannula Oxygen Flow Rate 2 Fraction of Inspired Oxygen 09/25/24 17:52 09/25/24 18:33 09/25/24 20:00 Temperature 97.3 F L Pulse Rate 66 67 65 Respiratory Rate 16 Blood Pressure 127/86 Pulse Oximetry 95 Oxygen Delivery Oxygen Flow Rate Fraction of Inspired Oxygen 09/25/24 20:28 09/25/24 21:15 09/25/24 22:00 Temperature Pulse Rate 67 66 Respiratory Rate 16 Blood Pressure Pulse Oximetry 93 95 Oxygen Delivery Nasal Cannula Nasal Cannula Oxygen Flow Rate 2 2 Fraction of Inspired Oxygen 28 09/26/24 00:00 09/26/24 00:00 09/26/24 00:48 Temperature 97.7 F Pulse Rate 71 73 79 Respiratory Rate 18 Blood Pressure 156/80 H Pulse Oximetry 95 Oxygen Delivery Oxygen Flow Rate Fraction of Inspired Oxygen 09/26/24 00:50 09/26/24 02:00 09/26/24 04:00 Temperature Pulse Rate 71 61 63 Respiratory Rate 18 Blood Pressure Pulse Oximetry 95 Oxygen Delivery Nasal Cannula Oxygen Flow Rate 2 Fraction of Inspired Oxygen 09/26/24 04:00 09/26/24 04:00 09/26/24 04:30 Temperature 98 F Pulse Rate 62 62 63 Respiratory Rate 18 18 16 Blood Pressure 123/59 L Pulse Oximetry 94 94 93 Oxygen Delivery Nasal Cannula Nasal Cannula Oxygen Flow Rate 2 1 Fraction of Inspired Oxygen 09/26/24 06:00 09/26/24 08:00 09/26/24 08:02 Temperature 98.4 F Pulse Rate 66 71 Respiratory Rate 18 Blood Pressure 152/63 H Pulse Oximetry 94 94 Oxygen Delivery Nasal Cannula Oxygen Flow Rate 1 Fraction of Inspired Oxygen 09/26/24 11:41 Temperature 97.8 F Pulse Rate 66 Respiratory Rate 18 Blood Pressure 130/85 Pulse Oximetry 97 Oxygen Delivery Oxygen Flow Rate Fraction of Inspired Oxygen Intake/Output Intake/Output: Intake & Output 09/23/24 09/24/24 09/25/24 09/26/24 23:59 23:59 23:59 23:59 Intake Total 240 240 Output Total 0 2150 Balance 240 -1910 Meds/Results Medications: Active Medications Generic Name Dose Route Start Last Admin Trade Name Freq PRN Reason Stop Dose Admin Acetaminophen 650 mg 09/25/24 18:25 Acetaminophen 325 Mg Tablet PO Q4H PRN Mild Pain (1-3) or Fever Albuterol 2 puff 09/25/24 18:32 Albuterol Sulfate (*Sp) Aerosol 1 Puff INHALATION Q4H PRN shortness of breath or wheezing Alprazolam 0.25 mg 09/25/24 18:32 09/25/24 22:59 Alprazolam (*Crx) 0.25 Mg Tablet PO 0.25 mg TID PRN Administration anxiety Amlodipine Besylate 5 mg 09/26/24 09:00 09/26/24 10:07 Amlodipine Besylate 5 Mg Tablet PO 5 mg DAILY MIS Administration Aspirin 81 mg 09/25/24 21:00 09/25/24 21:20 Aspirin 81 Mg Enteric Tablet PO 81 mg HS MIS Administration Carvedilol 12.5 mg 09/25/24 21:40 09/26/24 10:07 Carvedilol 12.5 Mg Tablet PO 12.5 mg Q12HR MIS Administration Celecoxib 200 mg 09/26/24 09:00 09/26/24 10:07 Celecoxib 200 Mg Capsule PO 200 mg DAILY MIS Administration Dextrose 12.5 gm 09/25/24 15:00 Dextrose 50% 25 Gm/50 Ml Syringe IV PUSH PRN PRN Hypoglycemia Protocol Enoxaparin Sodium 30 mg 09/26/24 09:00 09/26/24 10:08 Enoxaparin 30 Mg/0.3 Ml Syringe SUB-Q 30 mg DAILY MIS Administration Furosemide 40 mg 09/25/24 21:00 09/26/24 10:07 Furosemide Inj 40 Mg/4 Ml Vial IV PUSH 40 mg Q12HR MIS Administration Glucagon 1 mg 09/25/24 15:00 Glucagon For Inj 1 Mg Vial IM PRN PRN Hypoglycemia Protocol Glucose 15 gm 09/25/24 15:00 Glucose Oral Gel 15 Gm Of Glucse In 37.5 Gm Tube PO PRN PRN Hypoglycemia Protocol Hydralazine HCl 50 mg 09/25/24 21:50 09/26/24 10:07 Hydralazine Hcl 50 Mg Tablet PO 50 mg TID MIS Administration Dextrose 1,000 mls @ 100 mls/hr 09/25/24 15:00 Dextrose 5% 1,000 Ml IVPB PRN PRN Hypoglycemia Protocol Oxybutynin Chloride 10 mg 09/26/24 09:00 09/26/24 10:07 Oxybutynin Chloride Xl 5 Mg Tab.Er.24 PO 10 mg DAILY MIS Administration Perflutren Lipid Microsphere 0 ml 09/25/24 18:29 Perflutren Lipid Microspheres 1.5 Ml Vial Diluted To 10 Ml Total Volume IV PUSH 09/28/24 18:29 ONCE PRN adequate visualization Protocol Pravastatin Sodium 40 mg 09/25/24 21:00 09/25/24 21:21 Pravastatin Sodium 20 Mg Tablet PO 40 mg QHS MIS Administration Radiology Results: ITS Impressions Chest X-Ray 09/26/24 06:56 IMPRESSION: 1. Persistent diffuse bilateral lung disease which could represent atelectasis, mild pulmonary edema, pneumonia or some combination of. 2. Small left pleural effusion. 3. Cardiomegaly. Labs Labs: Laboratory Results - last 24 hr 09/25/24 09/25/24 09/25/24 14:25 14:36 15:11 WBC 6.4 RBC 3.34 L Hgb 9.9 L Hct 32.0 L MCV 95.8 MCH 29.6 MCHC 30.9 L RDW 16.7 H Plt Count 350 MPV 8.4 Immature Gran % (Auto) 0.5 Neut % (Auto) 75.7 H Lymph % (Auto) 10.6 L [place] % (Auto) 8.2 Eos % (Auto) 4.2 Baso % (Auto) 0.8 Lymph # (Auto) 0.68 L [place] # (Auto) 0.5 Eos # (Auto) 0.3 Baso # (Auto) 0.1 Abs Immat Gran (auto) 0.03 Absolute Neuts (auto) 4.9 Absolute Nucleated RBC 0.000 Nucleated RBC % 0.0 PT 14.3 INR 1.1 APTT 31.2 Sodium 139 Potassium 5.8 H Chloride 112 H Carbon Dioxide 17 L Anion Gap 10 BUN 81 H Creatinine 2.87 H Estim Creat Clear Calc 11 Estimated GFR 16 L Glucose 121 H POC Capillary Glucose 131 H Calcium 8.5 Magnesium 3.2 H Iron TIBC % Saturation Ferritin Total Bilirubin 0.7 AST 24 ALT 16 Alkaline Phosphatase 127 H NT-Pro-B Natriuret Pep 4330 H Total Protein 7.0 Albumin 3.5 TSH (Reflex) 3.740 Urine Color Yellow Urine Appearance Clear Urine pH 5.0 Ur Specific [place] 1.010 Urine Protein Negative Urine Glucose (UA) Negative Urine Ketones Negative Ur Blood (Man) Negative Urine Nitrate Negative Urine Bilirubin Negative Urine Urobilinogen 0.2 Leukocyte Esterase Rfl Negative Influenza A (RT-PCR) Negative Influenza B (RT-PCR) Negative RSV (RT-PCR) Negative SARS-CoV-2 RNA (RT-PCR) Negative 09/25/24 09/25/24 09/26/24 16:34 21:00 00:52 WBC RBC Hgb Hct MCV MCH MCHC RDW Plt Count MPV Immature Gran % (Auto) Neut % (Auto) Lymph % (Auto) [place] % (Auto) Eos % (Auto) Baso % (Auto) Lymph # (Auto) [place] # (Auto) Eos # (Auto) Baso # (Auto) Abs Immat Gran (auto) Absolute Neuts (auto) Absolute Nucleated RBC Nucleated RBC % PT INR APTT Sodium Potassium 5.4 H Chloride Carbon Dioxide Anion Gap BUN Creatinine Estim Creat Clear Calc Estimated GFR Glucose POC Capillary Glucose 125 H 88 Calcium Magnesium Iron TIBC % Saturation Ferritin Total Bilirubin AST ALT Alkaline Phosphatase NT-Pro-B Natriuret Pep Total Protein Albumin TSH (Reflex) Urine Color Urine Appearance Urine pH Ur Specific [place] Urine Protein Urine Glucose (UA) Urine Ketones Ur Blood (Man) Urine Nitrate Urine Bilirubin Urine Urobilinogen Leukocyte Esterase Rfl Influenza A (RT-PCR) Influenza B (RT-PCR) RSV (RT-PCR) SARS-CoV-2 RNA (RT-PCR) 09/26/24 09/26/24 03:46 03:48 WBC 5.8 RBC 2.87 L Hgb 8.6 L Hct 27.5 L MCV 95.8 MCH 30.0 MCHC 31.3 L RDW 16.6 H Plt Count 265 MPV 8.3 Immature Gran % (Auto) 0.5 Neut % (Auto) 68.2 Lymph % (Auto) 12.4 L [place] % (Auto) 13.4 H Eos % (Auto) 5.0 H Baso % (Auto) 0.5 Lymph # (Auto) 0.72 L [place] # (Auto) 0.8 H Eos # (Auto) 0.3 Baso # (Auto) 0.0 Abs Immat Gran (auto) 0.03 Absolute Neuts (auto) 4.0 Absolute Nucleated RBC 0.000 Nucleated RBC % 0.0 PT INR APTT Sodium 141 Potassium 4.7 Chloride 111 H Carbon Dioxide 19 L Anion Gap 11 BUN 75 H Creatinine 2.49 H Estim Creat Clear Calc 12 Estimated GFR 18 L Glucose 74 POC Capillary Glucose Calcium 8.1 L Magnesium Iron 28 L TIBC 235 L % Saturation 12 L Ferritin 61.80 Total Bilirubin AST ALT Alkaline Phosphatase NT-Pro-B Natriuret Pep Total Protein Albumin TSH (Reflex) Urine Color Urine Appearance Urine pH Ur Specific [place] Urine Protein Urine Glucose (UA) Urine Ketones Ur Blood (Man) Urine Nitrate Urine Bilirubin Urine Urobilinogen Leukocyte Esterase Rfl Influenza A (RT-PCR) Influenza B (RT-PCR) RSV (RT-PCR) SARS-CoV-2 RNA (RT-PCR) Quality VTE Prophylaxis VTE prophylaxis: mechanical ordered and pharmacologic ordered
[2024-09-26] MEDS: IRON SUCROSE COMPLEX 400 MG, IRON SUCROSE COMPLEX 100 MG in SODIUM CHLORIDE 0.9% IV 250 ML 78.57 MG IVPB (13:59)
--- NOTE | 2024-09-26 18:29 | ECHOL_ITS ---
Patient Info Name: Ml Wells Age: 84 years : 1940 Gender: Female Ht: 62 in Wt: 135 lbs BSA: 1.65 m2 HR: 63 bpm BP: 128 / 59 mmHg Heart Rhythm: Sinus Rhythm Technical Quality: Fair Exam Date: 09/26/2024 10:11 AM Exam Location: Echo Lab Patient Status: Inpatient Admit Date: 09/25/2024 Staff Ordering Physician: Fernanda Roche APRN Traditional Chinese Herbalist: Comfort Kay RDCS Attending Provider: Blayne Wright MD Referring Physician: Kaley ZUNIGA; Exam Type: CA echo limited Study Info Indications - CHF Limited two-dimensional transthoracic echocardiogram is performed. Summary 1. Left ventricular chamber dimension is normal. 2. Left ventricular systolic function is normal, estimated at 60-65%. 3. The left ventricular diastolic function is grade I diastolic dysfunction. 4. E/e' 14 is mildly elevated. 5. Linear artifact in right ventricle suggestive of catheter(s), pacemaker lead(s), or ICD lead(s). 6. Left atrial chamber dimension is moderately enlarged. 7. Right atrial chamber dimension is mildly enlarged. 8. Linear artifact in the right atrium suggestive of catheter(s), pacemaker lead(s), or ICD lead(s). 9. The mitral valve has moderately calcified annulus. 10. There is mild tricuspid valve regurgitation. 11. Moderate pulmonary hypertension, estimated pulmonary arterial systolic pressure is 55 mmHg. Left Ventricle E/e' 14 is mildly elevated. Left ventricular chamber dimension is normal. Left ventricular systolic function is normal, estimated at 60-65%. The left ventricular diastolic function is grade I diastolic dysfunction. Right Ventricle Linear artifact in right ventricle suggestive of catheter(s), pacemaker lead(s), or ICD lead(s). Right ventricular chamber dimension is normal. Right ventricular systolic function is normal. Left Atria Left atrial chamber dimension is moderately enlarged. Right Atria Linear artifact in the right atrium suggestive of catheter(s), pacemaker lead(s), or ICD lead(s). Right atrial chamber dimension is mildly enlarged. Aortic Valve The aortic valve is not well visualized. Cannot determine number of aortic valve leaflets. There is no aortic valve stenosis based on valve area. There is no aortic valve regurgitation. Pulmonic Valve There is no pulmonic regurgitation. Mitral Valve The mitral valve has moderately calcified annulus. There is no mitral valve stenosis. There is no mitral valve regurgitation. Tricuspid Valve There is mild tricuspid valve regurgitation. Moderate pulmonary hypertension, estimated pulmonary arterial systolic pressure is 55 mmHg. Pericardium/Pleural There is no pericardial effusion. Inferior Vena Cava Normal inferior vena cava with >50% collapse upon inspiration consistent with normal right atrial pressure, 5 mmHg. Aorta The aortic root size at the sinus of Valsalva is normal. Left Ventricular Outflow Tract Name Value Normal LVOT 2D LVOT Diameter 1.9 cm LVOT Doppler LVOT Peak Gradient 6 mmHg LVOT Mean Gradient 3 mmHg LVOT VTI 28 cm LVOT VTI/AV VTI Ratio 0.8 LVOT Stroke Volume 76 ml LVOT CO 5.3 l/min LVOT CI 3.2 l/min/m2 Pulmonic Valve Name Value Normal PV Doppler PV Peak Gradient 7 mmHg Mitral Valve Name Value Normal MV Doppler MV Decel [place] 485 cm/s2 MV PHT 63 ms MV Area (PHT) 3.5 cm2 4.0-5.0 MV Diastolic Function MV E Peak Velocity 106 cm/s MV A Peak Velocity 143 cm/s MV E/A 0.7 MV Decel Time 218 ms MV Annular TDI MV E/e' (Septal) 14.7 <=8.0 MV E/e' (Lateral) 14.2 <=8.0 MV E/e' (Average) 14.5 Tricuspid Valve Name Value Normal TV Regurgitation Doppler TR Peak Velocity 352 cm/s TR Peak Gradient 50 mmHg Estimated PAP/RSVP RA Pressure 5 mmHg <=5 PA Systolic Pressure 55 mmHg <36 RV Systolic Pressure 55 mmHg <36 Aortic Valve Name Value Normal AV Doppler AV Peak Velocity 140 cm/s AV Peak Gradient 8 mmHg AV Mean Gradient 4 mmHg AV VTI 33 cm AV Area (Cont Eq VTI) 2.3 cm2 >=3.0 AV Area (Cont Eq Bala) 2.3 cm2 AV Regurgitation 2D LVOT Area 2.7 cm2 Ventricles Name Value Normal LV Dimensions 2D/MM IVS Diastolic Thickness (2D) 1.0 cm 0.6-1.0 LVID Diastole (2D) 4.4 cm 3.8-5.2 LVIW Diastolic Thickness (2D) 1.0 cm 0.6-0.9 LVID Systole (2D) 2.9 cm 2.2-3.5 LVOT Diameter 1.9 cm LV Mass (2D Cubed) 146.92 g 67.00-162.00 LV Mass Index (2D Cubed) 89 g/m2 43-95 Relative Wall Thickness (2D) 0.43 LV Fractional Shortening/Ejection Fraction 2D/MM LV Fractional Shortening (2D) 35 % 27-45 LV EF (2D Teicholz) 65 % 54-74 LV Diastolic Volume (4C MOD) 82 ml LV EF (4C MOD) 63 % LV Diastolic Volume (2C MOD) 93 ml LV EF (2C MOD) 64 % LV Diastolic Volume (BP MOD) 87 ml 46-106 LV Diastolic Volume Index (BP MOD) 53 ml/m2 29-61 LV Systolic Volume (BP MOD) 32 ml 14-42 LV Systolic Volume Index (BP MOD) 20 ml/m2 8-24 LV EF (BP MOD) 63 % 54-74 LV Diastolic Length (4C) 7.1 cm LV Systolic Length (4C) 6.2 cm LV Stroke Volume (4C MOD) 52 ml Atria Name Value Normal LA Dimensions LA Volume (4C A-L) 67 ml LA Volume (BP A-L) 79 ml RA Dimensions RA Area (4C) 15.4 cm2 <=18.0 Report Signatures
[2024-09-26] MEDS: ASPIRIN 81 MG ENTERIC TABLET PO (22:05)
[2024-09-26] MEDS: PRAVASTATIN SODIUM 20 MG TABLET 40 MG PO (22:06)
[2024-09-26] MEDS: ALPRAZolam (*CRX) 0.25 MG TABLET PO (22:06)
[2024-09-27] VITALS (14 sets, daily range): BP systolic 127–159; BP diastolic 59–79; PULSE 66–80; RESP 16–24; TEMP 36.4–37; O2SAT 91–96
[2024-09-27] MEDS: ARTIFICIAL TEARS OPHTH SOLN 15 ML BOTTLE 1 DROP EACH EYE (02:01)
[2024-09-27 04:37] LABS: Basophils Absolute Auto 0.1 K/mm3 (0.0-0.1); Eosinophils Absolute Auto 0.5 K/mm3 (0-0.3); Eosinophils Percent Auto 8.2 % (0-4.4); Hematocrit 29.6 % (37.0-47.0); Immature Granulocyte Absolute 0.05 K/mm3 (0.00-0.031); Immature Granulocyte Percent A 0.8 % (0-0.5); Lymphocytes Percent Auto 14.3 % (18.3-44.2); Mean Corpuscular HGB Conc 30.4 g/dl (32-36); Mean Corpuscular Hemoglobin 29.4 pg (26-34); Mean Corpuscular Volume 96.7 fl (80-100); Mean Platelet Volume 8.5 fl (7.4-10.4); Monocytes Absolute Auto 0.9 K/mm3 (0.1-0.6); Monocytes Percent Auto 14.9 % (2.6-8.5); Neutrophils Absolute Auto 3.8 K/mm3 (1.3-6.7); Neutrophils Percent Auto 60.8 % (45.5-73.1); Nucleated Red Blood Cells Perc 0.3 % (0.0-0.2); Platelet Count Result 326 k/mm3 (150-375); Red Blood Count 3.06 M/mm3 (4.2-5.4); Red Cell Distribution Width 16.5 % (11.5-14.5); White Blood Count 6.3 K/mm3 (4.5-10.0)
[2024-09-27 04:50] LABS: Alanine Aminotransferase 12 U/L (6-35); Albumin Level 2.8 g/dL (3.5-5.1); Alkaline Phosphatase 94 U/L (38-126); Anion Gap 9 mmol/L (4-12); Aspartate Amino Transferase 24 U/L (14-36); Bilirubin,Total 0.5 mg/dL (0.2-1.3); Blood Urea Nitrogen 66 mg/dL (7-17); Calcium 8.1 mg/dL (8.4-10.2); Carbon Dioxide 22 mmol/L (22-30); Chloride 111 mmol/L (98-107); Estimated CRCL calculation 15 ml/min; Estimated Glomerular Filt Rate 23; Glucose 85 mg/dL (65-110); Magnesium 2.7 mg/dL (1.6-2.3); Potassium 3.9 mmol/L (3.4-5.0); Sodium 142 mmol/L (137-145)
[2024-09-27] MEDS: FUROSEMIDE INJ 40 MG/4 ML VIAL IV PUSH ×2 (09:47→21:40)
[2024-09-27] MEDS: ENOXAPARIN 30 MG/0.3 ML SYRINGE SUB-Q (09:47)
[2024-09-27] MEDS: oxyBUTYnin CHLORIDE XL 5 MG TAB.ER.24 10 MG PO (09:48)
[2024-09-27] MEDS: hydrALAZINE HCL 50 MG TABLET PO ×3 (09:48→17:07)
[2024-09-27] MEDS: carvediloL 12.5 MG TABLET PO ×2 (09:48→21:39)
[2024-09-27] MEDS: CELECOXIB 200 MG CAPSULE PO (09:48)
[2024-09-27] MEDS: amLODIPine BESYLATE 5 MG TABLET PO (09:49)
--- NOTE | 2024-09-27 11:45 | PM.CNCAR ---
Assessment and Plan Assessment and plan (1) CHF exacerbation: Qualifiers: Heart failure type: unspecified Qualified Code(s): I50.9 - Heart failure, unspecified Code(s): I50.9 - Heart failure, unspecified Status: Acute Assessment and Plan: Acute on chronic diastolic heart failure. On Lasix 40 mg IV BID. She is negative fluid balance of 3 liters. Monitor renal function. She needs to be on higher home maintenance dose of Lasix than 20 mg BID. And, she was drinking a lot water as she thought it would be good for her CKD. Needs to restrict total fluid intake to 1.5 l/day. (2) Essential hypertension: Code(s): I10 - Essential (primary) hypertension Status: Chronic Assessment and Plan: Stable. (3) Pacemaker: Code(s): Z95.0 - Presence of cardiac pacemaker Status: Acute Assessment and Plan: Stable. (4) Hyperlipidemia: Code(s): E78.5 - Hyperlipidemia, unspecified Status: Chronic Assessment and Plan: On Pravastatin. History of Present Illness History of Present Illness Consult date/time: 09/27/24 11:45 Reason For Visit: Hyperkalemia, pulmonary edema Narrative: Patient is a 84 yr old woman who is my regular cardiology patient presents to ER with sob. She has a history of diastolic dysfunction, hypertension and dyslipidemia, Biotronik pacemaker for heart block, CKD, stage IV, covid infection on 06/17/21, right pulm embolism in Jun 2021 that was treated for 6 months., had anemia with bleeding gastric ulcer and followed by Dr. Wisdom. Reports progressive sob for last several days with edema of legs, and found to be in CHF. She was off Lasix and drinking a lot of water. She was diagnosed with metastatic ovarian cancer and completed chemotherapy in Jun 2022. She has MARINA with minimal distance and has intermittent sob. States she has severe lower back pain requiring injections. When she walks she is limited by back pain which then occurs in her chest and resolves with rest. Reports MARINA walking in her [employer]ec[employer]al. Denies sob, palpitations, orthopnea, edema. Cardiovascular Procedures Echo/MUGA:: 12/24/23 Echo: EF 60-65%, grade I diastolic dysfunction (E/e' 15), mild LAE, mod MAC, mild-mod MR, mild TR, RVSP 45 mmHg. 12/11/21 Echo: EF 65-70%, mild LVH, grade I diastolic dysfunction, trace MR/TR, small pericardial effusion, large left pleural effusion, RVSP 47 mmHg. 07/22/21 Echo: EF 65-70%, mild LVH, grade I diastolic dysfunction (E/e' 18), mod LAE, sigmoid septum, severe posterior MAC, mild MR/TR, RVSP 40 mmHg. 03/11/19 Echo: EF 60-65%, sigmoid septum, mod LVH, grade I diastolic dysfunction. Electrophysiology:: 01/25/20 Dr. Holder implanted Biotronik dual chamber pacemaker. 09/03/24 EKG:Electronic AV pacemaker at 81 bpm. 07/21/21 EKG: Sinus rhythm, IRBBB, LVH with ST-T change, borderline ST-T wave in ant/inf leads. 12/22/19 Event monitor: Sinus rhythm, HR range 32-140 bpm; average 68 bpm; 4% PAC's and 1% PVC's and 2 VT at 140 bpm longest lasting 6 beats, 58 episodes of second degree AV block with longest pause at 2 seconds. EKG (Sinus rhythm, RSR' in V1 or V2.) - 02/04/2019 Stress Tests:: 03/11/20 Lexiscan myoview: Negative for ischemia. 10/21/23 Carotid duplex: <50% ICA stenosis bilaterally. 02/04/20 CT chest: Small liver lesion, could be benign hemangioma or metastatic disease. Radiologist recommends f/u CTA abd with contrast in 3 months. Review of Systems Review of Systems: All systems reviewed & are unremarkable except as noted in HPI and below Constitutional: Constitutional: Reports as per HPI, Denies chills and Denies fever(s) Cardiovascular: Cardiovascular: Reports as per HPI and Denies chest pain Respiratory: Respiratory: Reports dyspnea Gastrointestinal: Gastrointestinal: Reports as per HPI and Denies abdominal pain Genitourinary: Genitourinary: Reports as per HPI and Denies dysuria Musculoskeletal: Musculoskeletal: Reports as per HPI Neurologic: Reports as per HPI, Denies dizziness and Denies syncope [facility] Past Medical History Medical History ) Diastolic dysfunction Bleeding ulcer Pulmonary emboli (06/2021) Anxiety Anemia Overactive bladder Ovarian cancer Status post surgery and chemotherapy, currently on maintenance treatment with Avastin per Dr. Mosher Chronic GERD Osteoarthritis Hyperlipidemia Dyslipidemia Surgical History Surgical History ) History of appendectomy History of permanent cardiac pacemaker placement Biotronik pacemaker for heart block History of cataract surgery (2023) History of hysterectomy for cancer (04/2022) Status post robotic complete tumor debulking, total hysterectomy, bilateral salpingo oophorectomy, bilateral ureterolysis, and total omentectomy History of hemorrhoidectomy History of colon resection Family History Family History ) Father Cerebrovascular accident, Onset Age: 88 Mother Family history of arthritis, Onset Age: 85 Diverticulitis Social History Social History ) Social History: Surrogate medical decision maker: Darwin Wells, spouse. Code status: Full code. Smoking status: Never smoker Second hand tobacco smoke exposure: No Alcohol intake: never Substance use: never Substance use type: does not use Do You Feel Safe in your Home?: Yes Lack of Transportation: No Lack of Food: Never True Current Housing: I Have Housing Concerned About Future Housing: No Difficulty Paying Gas/Electric Bills: No Difficulty Paying for Meds: No Currently Unemployed: No Education: High School Diploma/GED Difficulty w/ Childcare or Family Care: No Living arrangements: with family Additional living arrangements comments: Lives with spouse in [place]. Occupation/Education: retired Spiritual care concerns: No Meds Home Medications and Allergies Home Medications ?Medication ?Instructions ?Recorded ?Confirmed ?Type omega 4-rzx-end-fish oil 300 1 cap PO DAILY 07/21/21 09/25/24 History mg-1,000 mg capsule (Fish Oil) psyllium husk 3.4 gram/5.4 gram 2 tsp PO DAILY Constipation 09/25/21 09/25/24 History oral powder (Metamucil) cyanocobalamin (vitamin B-12) 1,000 mcg PO DAILY #30 caps 12/05/21 09/25/24 Rx 1,000 mcg capsule ascorbate calcium (vitamin C) 500 500 mg PO DAILY 04/06/22 09/25/24 History mg tablet lidocaine-prilocaine 2.5 %-2.5 % 1 applic topical ONCE PRN 11/23/22 09/25/24 History topical cream port/catheter care magnesium 200 mg tablet 400 mg PO DAILY 11/23/22 09/25/24 History ondansetron 8 mg disintegrating 8 mg PO Q8H PRN Nausea 11/23/22 09/25/24 History tablet cholecalciferol (vitamin D3) 50 50 mcg PO DAILY 03/01/23 09/25/24 History mcg (2,000 unit) capsule albuterol sulfate 90 mcg/actuation 2 inh inhalation Q4H PRN shortness 09/18/23 09/25/24 Rx aerosol inhaler of breath or wheezing #6.7 grams alprazolam 0.25 mg tablet 0.25 mg PO TID PRN anxiety #90 tabs 09/18/23 09/25/24 Rx carboxymethylcellulose 0.5 1 drp ophthalmic (eye) Q6H PRN Pain 10/17/23 09/25/24 History %-glycerin 0.9 % (PF) eye drops (Refresh Relieva PF) carboxymethylcellulose 1 1 drp EACH EYE HS 10/17/23 09/25/24 History %-glycerin 0.9 % eye gel drops (Refresh Optive) acetaminophen 650 mg 650 mg PO Q12H PRN pain 02/20/24 09/25/24 History tablet,extended release (Tylenol 8 Hour) celecoxib 200 mg capsule (Celebrex) 200 mg PO DAILY #90 caps 05/11/24 09/25/24 Rx oxybutynin chloride 10 mg 10 mg PO DAILY #90 tabs 08/03/24 09/25/24 Rx tablet,extended release 24 hr pravastatin 40 mg tablet 40 mg PO QHS #90 tabs 08/05/24 09/25/24 Rx aspirin 81 mg tablet,delayed 81 mg PO HS 08/06/24 09/25/24 History release (Adult Low Dose Aspirin) loperamide 2 mg capsule 2 mg PO QID PRN loose stool 08/06/24 09/25/24 History (Anti-Diarrheal (loperamide)) pantoprazole 40 mg tablet,delayed 40 mg PO QHS #90 tabs 08/06/24 09/25/24 Rx release hydralazine 50 mg tablet 50 mg PO TID #60 tabs 08/18/24 09/25/24 Rx carvedilol 12.5 mg tablet 12.5 mg PO Q12H #60 tabs 09/03/24 09/25/24 Rx ferrous sulfate 325 mg (65 mg 325 mg PO DAILY 09/10/24 09/25/24 History iron) tablet amlodipine 5 mg tablet (Norvasc) 5 mg PO DAILY 09/25/24 09/25/24 History furosemide 40 mg tablet 20 mg PO BID 09/25/24 09/25/24 History Allergies Allergy/AdvReac Type Severity Reaction Status Date / Time No Known Allergies Allergy Verified 09/26/24 03:28 Vital Signs Vital Signs - 24 hr 09/26/24 12:00 09/26/24 14:00 09/26/24 16:00 Temperature Pulse Rate 74 Respiratory Rate Blood Pressure Pulse Oximetry 96 96 Oxygen Delivery Nasal Cannula Nasal Cannula Oxygen Flow Rate 1 1 09/26/24 16:00 09/26/24 16:05 09/26/24 18:00 Temperature 98.0 F Pulse Rate 77 67 75 Respiratory Rate 18 Blood Pressure 149/62 H Pulse Oximetry 94 Oxygen Delivery Oxygen Flow Rate 09/26/24 19:58 09/26/24 20:00 09/26/24 21:55 Temperature 98.6 F Pulse Rate 69 72 69 Respiratory Rate 16 16 Blood Pressure 122/81 Pulse Oximetry 92 92 Oxygen Delivery Room Air Oxygen Flow Rate 09/26/24 22:00 09/26/24 22:05 09/26/24 23:50 Temperature Pulse Rate 69 79 80 Respiratory Rate 20 Blood Pressure Pulse Oximetry 92 Oxygen Delivery Room Air Oxygen Flow Rate 09/27/24 00:00 09/27/24 00:00 09/27/24 02:00 Temperature 98.1 F Pulse Rate 80 67 66 Respiratory Rate 20 Blood Pressure 152/79 H Pulse Oximetry 92 Oxygen Delivery Oxygen Flow Rate 09/27/24 04:00 09/27/24 04:00 09/27/24 04:00 Temperature 98.6 F Pulse Rate 72 72 69 Respiratory Rate 16 16 Blood Pressure 147/76 H Pulse Oximetry 91 91 Oxygen Delivery Nasal Cannula Oxygen Flow Rate 1 09/27/24 06:00 09/27/24 08:00 09/27/24 10:44 Temperature 98.0 F Pulse Rate 69 79 Respiratory Rate 20 Blood Pressure 159/71 H Pulse Oximetry 94 92 Oxygen Delivery Room Air Oxygen Flow Rate Exam Const: General: cooperative, healthy appearing and comfortable Resp: Auscultation: clear to auscultation bilaterally, no crackles, no rales, no rhonchi and no wheezes Cardio: Rate: regular rate Rhythm: regular rhythm Heart sounds: no murmurs Peripheral pulses: dorsalis pedis present GI: GI Palp: No abdominal tenderness and Yes Soft to palpation Neuro: General: oriented to person, oriented to place and oriented to time Extrem: Right lower extremity: no edema Left lower extremity: no edema Results Labs and Meds 09/27/24 03:51 09/27/24 03:51 Lab results: Cardiac Enzymes 09/27/24 Range/Units 03:51 AST 24 (14-36) U/L CBC 09/27/24 Range/Units 03:51 WBC 6.3 (4.5-10.0) K/mm3 RBC 3.06 L (4.2-5.4) M/mm3 Hgb 9.0 L (12.0-15.0) g/dL Hct 29.6 L (37.0-47.0) % Plt Count 326 (150-375) k/mm3 Lymph # (Auto) 0.90 (0.9-3.2) K/mm3 [place] # (Auto) 0.9 H (0.1-0.6) K/mm3 Eos # (Auto) 0.5 H (0-0.3) K/mm3 Baso # (Auto) 0.1 (0.0-0.1) K/mm3 Comprehensive Metabolic Panel 09/27/24 Range/Units 03:51 Sodium 142 (137-145) mmol/L Potassium 3.9 (3.4-5.0) mmol/L Chloride 111 H (98-107) mmol/L Carbon Dioxide 22 (22-30) mmol/L BUN 66 H (7-17) mg/dL Creatinine 2.06 H (0.7-1.0) mg/dL Glucose 85 (65-110) mg/dL Calcium 8.1 L (8.4-10.2) mg/dL AST 24 (14-36) U/L ALT 12 (6-35) U/L Alkaline Phosphatase 94 (38-126) U/L Total Protein 6.0 L (6.3-8.2) g/dL Albumin 2.8 L (3.5-5.1) g/dL Intake and Output 09/26/24 09/27/24 09/27/24 23:59 07:59 15:59 Intake Total 765 450 0 Output Total 850 1800 Balance -85 -1350 0 Intake: IV 275 Iron Sucrose Complex 400 mg 275 Iron Sucrose Complex 100 mg In Sodium Chloride 0.9% IV 250 ml @ 78.571 mls/hr IVPB ONCE ONE Rx#:[id number] Oral 490 450 0 Output: Urine 1800 Catheter Urine 850 External/Condom 850 Patient Weight 09/27/24 23:59 Weight 61.5 kg
--- NOTE | 2024-09-27 14:22 | P.DS_ITS ---
DS: Admitting Diagnosis Discharge Date 09/27/24 Admitting Diagnosis Shortness of breath and hyperkalemia DS: Discharge Diagnosis Discharge Diagnosis (1) CHF exacerbation: Qualifiers: Heart failure type: unspecified Qualified Code(s): I50.9 - Heart failure, unspecified Code(s): I50.9 - Heart failure, unspecified Status: Acute (2) CHRISTIANO (iron deficiency anemia): Code(s): D50.9 - Iron deficiency anemia, unspecified Status: Acute DS: Summary Hospital Course Hospital Course: 84-year-old female past medical history of ovarian cancer, PE, hypertension and hyperlipidemia presents the hospital with shortness of breath and hyperkalemia on outside labs. Patient states that she does not know of a history of congestive heart failure. She states that she has had a pleural effusion in the past before when she was originally diagnosed with cancer. Patient had gone to her primary care provider due to her shortness of breath. She was found to have hyperkalemia and was sent to the emergency room for further evaluation. Patient states she feels much better after diuresis she had about 2 L out in urine. In the ED her hemoglobin is 9.9 which is around baseline, potassium is 5.8, BUN is 81, creatinine is 2.87, with baseline being around 1.8, GFR 16, transient is 3.2, alkaline phos is 127, BNP is 4330, influenza a B, RSV and COVID negative. Chest x-ray shows Patient was given hyperkalemia protocol in the ED with Lasix due to pulmonary edema. Patient improved on IV lasix and creatinein went from 2.7 to 2.06. ECHO showed EF 60-65% and patient discharged on Lasix 20mg po bid. Hb 9.0 and Isat 12, patient received 1g of IV iron. Hyperkalemia resolved cardiology was consulted and was involved with her care F/u with PCP in 3-5 days F/u with cardiology as instructed Time Spent with Patient Time attestation: Total time spent providing and/or coordinating discharge services: DS: Data Data Completed and Pending Labs on day of discharge: Labs from last 24 hours 09/27/24 03:51 WBC 6.3 RBC 3.06 L Hgb 9.0 L Hct 29.6 L MCV 96.7 MCH 29.4 MCHC 30.4 L RDW 16.5 H Plt Count 326 MPV 8.5 Immature Gran % (Auto) 0.8 H Neut % (Auto) 60.8 Lymph % (Auto) 14.3 L [place] % (Auto) 14.9 H Eos % (Auto) 8.2 H Baso % (Auto) 1.0 Lymph # (Auto) 0.90 [place] # (Auto) 0.9 H Eos # (Auto) 0.5 H Baso # (Auto) 0.1 Abs Immat Gran (auto) 0.05 H Absolute Neuts (auto) 3.8 Absolute Nucleated RBC 0.020 H Nucleated RBC % 0.3 H Sodium 142 Potassium 3.9 Chloride 111 H Carbon Dioxide 22 Anion Gap 9 BUN 66 H Creatinine 2.06 H Estim Creat Clear Calc 15 Estimated GFR 23 L Glucose 85 Calcium 8.1 L Magnesium 2.7 H Total Bilirubin 0.5 AST 24 ALT 12 Alkaline Phosphatase 94 Total Protein 6.0 L Albumin 2.8 L Discharge Plan Discharge Attending physician on discharge: Blayne Wright Consulting providers: Jose Varghese Discharging Clinician: Blayne Wright Anticipated Discharge Date/Time: 09/27/24 14:20 Patient Disposition: Home, Self-Care Activity: as tolerated Diet: as tolerated and heart healthy Discharge Instructions: Care Coordination: Patient to have [facility] resume services at discharge. Their phone number is [phone] if you have any questions; they will contact you to schedule their first visit. Patient Instructions: Antibiotic Form Patient Language: Citizen Of [place] Stand Alone Forms: General Discharge Information Follow-up/Referrals: Jose Varghese DO [Physician] - (F/u with cardiology as instructed ) Gina Salvador PA-C [Primary Care Provider] - (F/u with PCP in 3-5 days ) Discharge Medications: New furosemide [Lasix] 20 mg tablet 20 mg PO BID 30 Days Qty: 60 1RF Continued ondansetron 8 mg Tablet,Disintegrating 8 mg PO Q8H PRN (Reason: Nausea) Patient Comments: Only taken 3-4 times in the last 4 years. lidocaine-prilocaine 2.5-2.5 % Cream 1 applic TOPICAL ONCE PRN (Reason: port/catheter care) magnesium 200 mg Tablet 400 mg PO DAILY cholecalciferol (vitamin D3) 50 mcg (2,000 unit) Capsule 50 mcg PO DAILY Refresh Optive 1-0.9 % Drops,Gel 1 drp EACH EYE HS Refresh Relieva PF 0.5-0.9 % Drops 1 drp OPHTHALMIC (EYE) Q6H PRN (Reason: Pain) acetaminophen [Tylenol 8 Hour] 650 mg Tablet Extended Release 650 mg PO Q12H PRN (Reason: pain) Patient Comments: . aspirin [Adult Low Dose Aspirin] 81 mg tablet,delayed release (DR/EC) 81 mg PO HS loperamide [Anti-Diarrheal (loperamide)] 2 mg capsule 2 mg PO QID PRN (Reason: loose stool) carvedilol 12.5 mg tablet 12.5 mg PO Q12H Qty: 60 5RF Rx Instructions: must administer with a meal/food albuterol sulfate 90 mcg/actuation HFA aerosol inhaler 2 inh inhalation Q4H PRN (Reason: shortness of breath or wheezing) Qty: 6.7 1RF Patient Comments: Couple of months. Doesn't work. Empty. alprazolam 0.25 mg tablet 0.25 mg PO TID PRN (Reason: anxiety) Qty: 90 0RF Patient Comments: Couple of months omega 6-czc-qmo-fish oil [Fish Oil] 300-1,000 mg Capsule 1 cap PO DAILY Rx Instructions: 1000 mg two capsules daily Metamucil 3.4 gram/5.4 gram Powder 2 tsp PO DAILY furosemide 40 mg tablet 20 mg PO BID amlodipine [Norvasc] 5 mg Tablet 5 mg PO DAILY cyanocobalamin (vitamin B-12) 1,000 mcg capsule 1,000 mcg PO DAILY Qty: 30 1RF ferrous sulfate 325 mg (65 mg iron) tablet 325 mg PO DAILY ascorbate calcium (vitamin C) 500 mg tablet 500 mg PO DAILY celecoxib [Celebrex] 200 mg capsule 200 mg PO DAILY Qty: 90 1RF oxybutynin chloride 10 mg tablet extended release 24hr 10 mg PO DAILY Qty: 90 1RF pravastatin 40 mg tablet 40 mg PO QHS Qty: 90 1RF pantoprazole 40 mg tablet,delayed release (DR/EC) 40 mg PO QHS Qty: 90 1RF hydralazine 50 mg tablet 50 mg PO TID Qty: 60 5RF Date of admission: 09/26/24 13:05 Primary Care Provider: Gina Salvador Admitting Provider: Blayne Wright Attending physician on admission: Blayne Wright Condition: Serious
[2024-09-27] MEDS: IRON SUCROSE COMPLEX 400 MG, IRON SUCROSE COMPLEX 100 MG in SODIUM CHLORIDE 0.9% IV 250 ML 78.57 MG IVPB (15:29)
[2024-09-27] MEDS: PRAVASTATIN SODIUM 20 MG TABLET 40 MG PO (21:38)
[2024-09-27] MEDS: ASPIRIN 81 MG ENTERIC TABLET PO (21:39)
--- NOTE | 2024-09-27 22:37 | PC.NURSE ---
pt transferred to room 345 in bed report given
[2024-09-28] VITALS (11 sets, daily range): BP systolic 107–167; BP diastolic 53–81; PULSE 60–102; RESP 16; TEMP 36.2; O2SAT 95
[2024-09-28] MEDS: amLODIPine BESYLATE 5 MG TABLET PO (08:02)
[2024-09-28] MEDS: carvediloL 12.5 MG TABLET PO (08:02)
[2024-09-28] MEDS: hydrALAZINE HCL 50 MG TABLET PO (08:03)
[2024-09-28] MEDS: oxyBUTYnin CHLORIDE XL 5 MG TAB.ER.24 10 MG PO (08:03)
[2024-09-28] MEDS: FUROSEMIDE INJ 40 MG/4 ML VIAL IV PUSH (08:03)
[2024-09-28] MEDS: ENOXAPARIN 30 MG/0.3 ML SYRINGE SUB-Q (08:03)
[2024-09-28] MEDS: CELECOXIB 200 MG CAPSULE PO (08:03)
--- NOTE | 2024-09-28 08:06 | PM.PNCARD ---
Progress Note: A&P Assessment and Plan (1) CHF exacerbation: Qualifiers: Heart failure type: unspecified Qualified Code(s): I50.9 - Heart failure, unspecified Code(s): I50.9 - Heart failure, unspecified Status: Acute Assessment and Plan: Acute on chronic diastolic heart failure. On Lasix 40 mg IV BID. She is negative fluid balance of 3 liters. Monitor renal function. She needs to be on higher home maintenance dose of Lasix than 20 mg BID. And, she was drinking a lot water as she thought it would be good for her CKD. Needs to restrict total fluid intake to 1.5 l/day. May d/c home from cardiology standpoint and keep regular f/u with me. (2) Essential hypertension: Code(s): I10 - Essential (primary) hypertension Status: Chronic Assessment and Plan: Stable. (3) Pacemaker: Code(s): Z95.0 - Presence of cardiac pacemaker Status: Acute Assessment and Plan: Stable. (4) Hyperlipidemia: Code(s): E78.5 - Hyperlipidemia, unspecified Status: Chronic Assessment and Plan: On Pravastatin. Subjective Date/time seen: 09/28/24 08:06 Interval history: She got dizzy yesterday upon standing and walking to restroom. She has a cough. No chest pain or sob. Exam Const: General: cooperative, healthy appearing and comfortable Orientation/consciousness: oriented to person, oriented to place and oriented to time Resp: Auscultation: clear to auscultation bilaterally, no crackles, no rales, no rhonchi and no wheezes Cardio: Rate: regular rate Rhythm: regular rhythm Heart sounds: no murmurs Peripheral pulses: dorsalis pedis present Neuro: General: oriented to person, oriented to place and oriented to time Extrem: Right lower extremity: no edema Left lower extremity: no edema Objective Data Vital Signs Vital Signs: Vital Signs - 24 hr 09/27/24 10:00 09/27/24 10:44 09/27/24 12:00 Temperature 98.2 F Pulse Rate 78 71 Respiratory Rate 18 Blood Pressure 127/59 L Pulse Oximetry 92 92 Oxygen Delivery Room Air 09/27/24 12:00 09/27/24 12:00 09/27/24 14:00 Temperature Pulse Rate 67 69 Respiratory Rate Blood Pressure Pulse Oximetry Oxygen Delivery Room Air 09/27/24 16:00 09/27/24 16:00 09/27/24 16:00 Temperature 97.5 F L Pulse Rate 72 76 Respiratory Rate 20 Blood Pressure 149/62 H Pulse Oximetry 96 Oxygen Delivery Room Air 09/27/24 18:00 09/27/24 18:40 09/27/24 20:00 Temperature Pulse Rate 72 74 69 Respiratory Rate 24 H 18 Blood Pressure 144/67 H Pulse Oximetry 96 96 Oxygen Delivery Room Air 09/27/24 20:00 09/27/24 20:00 09/27/24 21:39 Temperature 97.7 F Pulse Rate 69 66 76 Respiratory Rate 18 Blood Pressure 148/68 H Pulse Oximetry 94 Oxygen Delivery 09/28/24 00:00 09/28/24 04:00 09/28/24 07:55 Temperature Pulse Rate 102 H 60 Respiratory Rate Blood Pressure 167/69 H Pulse Oximetry Oxygen Delivery 09/28/24 08:02 Temperature Pulse Rate 70 Respiratory Rate Blood Pressure Pulse Oximetry Oxygen Delivery Intake/Output Intake/Output: Intake & Output 09/25/24 09/26/24 09/27/24 09/28/24 23:59 23:59 23:59 23:59 Intake Total 240 1125 990 Output Total 0 3000 1800 Balance 850 -2517 -679 Meds/Results Medications: Active Medications Generic Name Dose Route Start Last Admin Trade Name Freq PRN Reason Stop Dose Admin Acetaminophen 650 mg 09/25/24 18:25 Acetaminophen 325 Mg Tablet PO Q4H PRN Mild Pain (1-3) or Fever Albuterol 2 puff 09/25/24 18:32 Albuterol Sulfate (*Sp) Aerosol 1 Puff INHALATION Q4H PRN shortness of breath or wheezing Alprazolam 0.25 mg 09/25/24 18:32 09/26/24 22:06 Alprazolam (*Crx) 0.25 Mg Tablet PO 0.25 mg TID PRN Administration anxiety Amlodipine Besylate 5 mg 09/26/24 09:00 09/28/24 08:02 Amlodipine Besylate 5 Mg Tablet PO 5 mg DAILY MIS Administration Artificial Tears 1 drop 09/27/24 01:14 09/27/24 02:01 Artificial Tears Ophth Soln 15 Ml Bottle EACH EYE 1 drop QID PRN Administration Dry Eye(s) Aspirin 81 mg 09/25/24 21:00 09/27/24 21:39 Aspirin 81 Mg Enteric Tablet PO 81 mg HS MIS Administration Carvedilol 12.5 mg 09/25/24 21:40 09/28/24 08:02 Carvedilol 12.5 Mg Tablet PO 12.5 mg Q12HR MIS Administration Celecoxib 200 mg 09/26/24 09:00 09/28/24 08:03 Celecoxib 200 Mg Capsule PO 200 mg DAILY MIS Administration Dextrose 12.5 gm 09/25/24 15:00 Dextrose 50% 25 Gm/50 Ml Syringe IV PUSH PRN PRN Hypoglycemia Protocol Enoxaparin Sodium 30 mg 09/26/24 09:00 09/28/24 08:03 Enoxaparin 30 Mg/0.3 Ml Syringe SUB-Q 30 mg DAILY MIS Administration Furosemide 40 mg 09/25/24 21:00 09/28/24 08:03 Furosemide Inj 40 Mg/4 Ml Vial IV PUSH 40 mg Q12HR MIS Administration Glucagon 1 mg 09/25/24 15:00 Glucagon For Inj 1 Mg Vial IM PRN PRN Hypoglycemia Protocol Glucose 15 gm 09/25/24 15:00 Glucose Oral Gel 15 Gm Of Glucse In 37.5 Gm Tube PO PRN PRN Hypoglycemia Protocol Hydralazine HCl 50 mg 09/25/24 21:50 09/28/24 08:03 Hydralazine Hcl 50 Mg Tablet PO 50 mg TID MIS Administration Dextrose 1,000 mls @ 100 mls/hr 09/25/24 15:00 Dextrose 5% 1,000 Ml IVPB PRN PRN Hypoglycemia Protocol Oxybutynin Chloride 10 mg 09/26/24 09:00 09/28/24 08:03 Oxybutynin Chloride Xl 5 Mg Tab.Er.24 PO 10 mg DAILY MIS Administration Perflutren Lipid Microsphere 0 ml 09/25/24 18:29 Perflutren Lipid Microspheres 1.5 Ml Vial Diluted To 10 Ml Total Volume IV PUSH 09/28/24 18:29 ONCE PRN adequate visualization Protocol Pravastatin Sodium 40 mg 09/25/24 21:00 09/27/24 21:38 Pravastatin Sodium 20 Mg Tablet PO 40 mg QHS MIS Administration Radiology Results: ITS Impressions Chest X-Ray 09/26/24 06:56 IMPRESSION: 1. Persistent diffuse bilateral lung disease which could represent atelectasis, mild pulmonary edema, pneumonia or some combination of. 2. Small left pleural effusion. 3. Cardiomegaly. Chest CT 09/26/24 13:59 IMPRESSION: Pulmonary opacities may represent resolving postinfectious change, mild interstitial edema, and bibasilar atelectasis. Persistent or recurrent infection is not excluded. Moderate left and small right pleural effusions. Gallbladder wall thickening, a nonspecific finding and in this case perhaps related to incomplete distention. Correlate with biliary labs and for symptoms of right upper quadrant pain ADDENDUM: 09/26/24 1430 Consider follow-up low-dose noncontrast CT of the chest following resolution of acute symptoms to ensure resolution of the pulmonary findings. Abdomen Ultrasound 09/27/24 19:00 IMPRESSION: Indeterminate findings within segment 5 of the liver and adjacent to the fundus of the gallbladder which contrast enhanced MRI is suggested for further evaluation.
[2024-09-28 09:34] LABS: IFOB Positive Control Positive; Immunochemical Fecal Occult Bl Positive (N)
[2024-09-28 10:00] LABS: Anion Gap 11 mmol/L (4-12); Blood Urea Nitrogen 46 mg/dL (7-17); Calcium 8.5 mg/dL (8.4-10.2); Carbon Dioxide 25 mmol/L (22-30); Chloride 105 mmol/L (98-107); Estimated CRCL calculation 17 ml/min; Estimated Glomerular Filt Rate 27; Glucose 133 mg/dL (65-110); Potassium 3.2 mmol/L (3.4-5.0); Sodium 141 mmol/L (137-145)
--- NOTE | 2024-09-28 13:22 | PM.DS ---
DS: Admitting Diagnosis Discharge Date 09/28/24 Admitting Diagnosis Shortness of breath and hyperkalemia DS: Discharge Diagnosis Discharge Diagnosis (1) CHF exacerbation: Qualifiers: Heart failure type: unspecified Qualified Code(s): I50.9 - Heart failure, unspecified Code(s): I50.9 - Heart failure, unspecified Status: Acute (2) Hyperkalemia: Code(s): E87.5 - Hyperkalemia Status: Acute DS: Summary Hospital Course Hospital Course: 84-year-old female past medical history of ovarian cancer, PE, hypertension and hyperlipidemia presents the hospital with shortness of breath and hyperkalemia on outside labs. Patient states that she does not know of a history of congestive heart failure. She states that she has had a pleural effusion in the past before when she was originally diagnosed with cancer. Patient had gone to her primary care provider due to her shortness of breath. She was found to have hyperkalemia and was sent to the emergency room for further evaluation. Patient states she feels much better after diuresis she had about 2 L out in urine. In the ED her hemoglobin is 9.9 which is around baseline, potassium is 5.8, BUN is 81, creatinine is 2.87, with baseline being around 1.8, GFR 16, transient is 3.2, alkaline phos is 127, BNP is 4330, influenza a B, RSV and COVID negative. Chest x-ray shows Patient was given hyperkalemia protocol in the ED with Lasix due to pulmonary edema. Patient improved on IV lasix and creatinine went from 2.7 to 1.82. ECHO showed EF 60-65% and patient discharged on Lasix 20mg po bid. Wayne on CKD likely from cardiorenal since it improved with diuresis. Given positive orthostatic hypotension which is likely from diuresis, patient was discharged on Midodrine 2.5 bid x 1 week, and already lasix decreased to 20mg po bid. Hb 9.0 and Isat 12, patient received 1g of IV iron. Hyperkalemia resolved cardiology was consulted and was involved with her care F/u with PCP in 3-5 days F/u with cardiology as instructed Time Spent with Patient Time attestation: Total time spent providing and/or coordinating discharge services: DS: Data Data Completed and Pending Labs on day of discharge: Labs from last 24 hours 09/28/24 09/28/24 09:43 09:15 Sodium 141 Potassium 3.2 L Chloride 105 Carbon Dioxide 25 Anion Gap 11 BUN 46 H D Creatinine 1.82 H Estim Creat Clear Calc 17 Estimated GFR 27 L Glucose 133 H Calcium 8.5 Stl Occult Blood (IFOB) Positive H Discharge Plan Discharge Attending physician on discharge: Blayne Wright Consulting providers: Jose Varghese Discharging Clinician: Blayne Wright Anticipated Discharge Date/Time: 09/27/24 14:20 Patient Disposition: Home Activity: as tolerated Diet: as tolerated and heart healthy Discharge Instructions: Care Coordination: Patient to have [facility] resume services at discharge. Their phone number is [phone] if you have any questions; they will contact you to schedule their first visit. Patient Instructions: Antibiotic Form Patient Language: Burmese Stand Alone Forms: General Discharge Information Follow-up/Referrals: Jose Varghese DO [Physician] - (F/u with cardiology as instructed ) Gina Salvador PA-C [Primary Care Provider] - (F/u with PCP in 3-5 days ) Discharge Medications: New furosemide [Lasix] 20 mg tablet 20 mg PO BID 30 Days Qty: 60 1RF midodrine 2.5 mg tablet 2.5 mg PO BID 7 Days Qty: 14 0RF Rx Instructions: do not give last dose of day after 6PM or within 4 hrs of bedtime Continued ondansetron 8 mg Tablet,Disintegrating 8 mg PO Q8H PRN (Reason: Nausea) Patient Comments: Only taken 3-4 times in the last 4 years. lidocaine-prilocaine 2.5-2.5 % Cream 1 applic TOPICAL ONCE PRN (Reason: port/catheter care) magnesium 200 mg Tablet 400 mg PO DAILY cholecalciferol (vitamin D3) 50 mcg (2,000 unit) Capsule 50 mcg PO DAILY Refresh Optive 1-0.9 % Drops,Gel 1 drp EACH EYE HS Refresh Relieva PF 0.5-0.9 % Drops 1 drp OPHTHALMIC (EYE) Q6H PRN (Reason: Pain) acetaminophen [Tylenol 8 Hour] 650 mg Tablet Extended Release 650 mg PO Q12H PRN (Reason: pain) Patient Comments: . aspirin [Adult Low Dose Aspirin] 81 mg tablet,delayed release (DR/EC) 81 mg PO HS loperamide [Anti-Diarrheal (loperamide)] 2 mg capsule 2 mg PO QID PRN (Reason: loose stool) carvedilol 12.5 mg tablet 12.5 mg PO Q12H Qty: 60 5RF Rx Instructions: must administer with a meal/food albuterol sulfate 90 mcg/actuation HFA aerosol inhaler 2 inh inhalation Q4H PRN (Reason: shortness of breath or wheezing) Qty: 6.7 1RF Patient Comments: Couple of months. Doesn't work. Empty. alprazolam 0.25 mg tablet 0.25 mg PO TID PRN (Reason: anxiety) Qty: 90 0RF Patient Comments: Couple of months omega 7-gtt-vpb-fish oil [Fish Oil] 300-1,000 mg Capsule 1 cap PO DAILY Rx Instructions: 1000 mg two capsules daily Metamucil 3.4 gram/5.4 gram Powder 2 tsp PO DAILY furosemide 40 mg tablet 20 mg PO BID amlodipine [Norvasc] 5 mg Tablet 5 mg PO DAILY cyanocobalamin (vitamin B-12) 1,000 mcg capsule 1,000 mcg PO DAILY Qty: 30 1RF ferrous sulfate 325 mg (65 mg iron) tablet 325 mg PO DAILY ascorbate calcium (vitamin C) 500 mg tablet 500 mg PO DAILY celecoxib [Celebrex] 200 mg capsule 200 mg PO DAILY Qty: 90 1RF oxybutynin chloride 10 mg tablet extended release 24hr 10 mg PO DAILY Qty: 90 1RF pravastatin 40 mg tablet 40 mg PO QHS Qty: 90 1RF pantoprazole 40 mg tablet,delayed release (DR/EC) 40 mg PO QHS Qty: 90 1RF hydralazine 50 mg tablet 50 mg PO TID Qty: 60 5RF Date of admission: 09/26/24 13:05 Primary Care Provider: Gina Salvador Admitting Provider: Blayne Wright Attending physician on admission: Blayne Wright Condition: Serious
== END 2024-09-28 15:05 | disposition home or self-care (01) | DRG 291 ==
LOC: ANHED 14:29 → ANHIMU 16:32 → ANH3MED 09-27 22:40
PROVIDERS: Nurse Practitioner Gerontology; Admitting Provider Internal Medicine; Emergency Provider Emergency Medicine; PCP Physician Assistant Medical; Visit Provider Internal Medicine
DX: I13.0 Hypertensive heart and chronic kidney disease with heart failure and stage 1 through stage 4 chronic kidney disease, or unspecified chronic kidney disease (principal); I50.33 Acute on chronic diastolic (congestive) heart failure; C56.9 Malignant neoplasm of unspecified ovary; C79.9 Secondary malignant neoplasm of unspecified site; N17.9 Acute kidney failure, unspecified; N18.30 Chronic kidney disease, stage 3 unspecified; E87.5 Hyperkalemia; I95.1 Orthostatic hypotension; D50.9 Iron deficiency anemia, unspecified; E78.5 Hyperlipidemia, unspecified; R53.1 Weakness; N32.81 Overactive bladder; F41.9 Anxiety disorder, unspecified; Z20.822 Contact with and (suspected) exposure to COVID-19; Z95.0 Presence of cardiac pacemaker; Z87.11 Personal history of peptic ulcer disease; Z86.711 Personal history of pulmonary embolism; Z79.82 Long term (current) use of aspirin
CPT/HCPCS: 36415; 71045; 71250; 76705; 80048; 80053; 81003; 82274; 82728; 82948; 83540; 83550; 83735; 83880; 84132; 84443; 85025; 85610; 85730; 87637; 93005; 93308; 96374; 96375; 96376; 97161; 97165; 99285; A9270; G0378; J1650; J1756; J1815; J1938; J7050

== ENCOUNTER 2024-09-29 11:46 | Outpatient (CLI) | payer MEDICARE, SELFPAY ==
--- NOTE | ~2024-09-29 | PE_ITS ---
EXAMINATION: PET skull to mid thigh DATE: 09/29/2024 14:21 INDICATION: Ovarian cancer TECHNIQUE: Blood glucose level was not recorded. 9.784 mCi of 18-fluorodeoxyglucose (18-FDG) was admi nistered i.v. Low dose computed tomography (CT) images were acquired from the base of the brain to th e proximal thighs for attenuation correction and anatomic localization. Positron emission tomography (PET) images were acquired in the same distribution beginning 59 minutes after injection. Images incl uding fused PET/CT images were reconstructed in axial, coronal, and sagittal planes. Automated exposu re control technique was employed. The dose-length product was 461.10mGy-cm. COMPARISON: Chest CT dated 09/26/2024 FINDINGS: Head/neck: There is symmetric increased activity in the oral cavity, palatine tonsils, laryngeal muscles and ocu lar muscles without CT correlate, likely physiologic. No pathologically enlarged cervical lymphadenop athy. Moderate increased FDG uptake associated with multiple normal-sized bilateral cervical lymph no nasir. For reference the largest lymph node in the right supraclavicular region measures 10 x 8 mm with maximal SUV of 7.0. Chest: Small to moderate-sized left and very small right posterior layering pleural effusions. There is depe ndent compressive atelectasis in the left lower lobe. Interval progression of a bandlike region of co nsolidation in the right middle lobe which given the rapid progression since CT dated 3 days prior wo uld be most consistent with atelectasis. Additional scattered there are bands of discoid atelectasis in the bilateral mid and lower lung zones. Calcified left lower lobe nodule along with calcified left hilar lymph nodes consistent with old granulomatous disease. Mild cardiomegaly with atherosclerotic coronary artery calcific lesion. Cardiac pacemaker with lead tips at the right atrium and right ventr icle. No pericardial effusion. Thoracic aorta is normal in caliber. Right subclavian central venous p ort catheter with distal tip near the superior cavoatrial junction. There are several additional norm al sized mediastinal and bilateral hilar lymph nodes. For reference with the largest prevascular lymp h node measures 10 x 6 mm with maximal SUV of 6.3. Abdomen/pelvis/proximal thighs: There are several FDG avid hepatic lesions with the larger with maximal SUV of 8.1 demonstrates a sub tle 1.5 cm hypodense nodule in the right hepatic lobe. More posterior in the right hepatic lobe is a second more intense FDG avid nodule with maximal SUV of 11.4 which is without appreciable correlate o n CT. There are multiple FDG avid periportal lymph nodes with maximal SUV of 7.3. The lymph nodes are difficult to distinguish from the adjacent vasculature but do not appear significantly enlarged. The re is mild curvilinear increased uptake along portions of the periphery of the liver and spleen which are without radiologic correlate on CT but with location suggesting possible peroneal carcinomatosis . There are numerous FDG avid lymph nodes along the mesentery which are more notable for number than size with the largest measuring up to 7 mm in maximal short axis diameter which remains within normal limits. There are also FDG avid retroperitoneal lymph nodes extending along the aorta, inferior vena cava and bilateral iliac vessels extending to the pelvis. Physiologic renal accumulation and excreti on of FDG activity in the kidneys, bladder and along portions of ureters. The gallbladder, pancreas, spleen and right adrenal gland are normal. Small focus of mild uptake with maximal SUV of 3.8 at the left adrenal gland which appears normal on CT. Mild uptake scattered throughout the bowels without ra diologic correlate, also likely physiologic. The uterus is not identified and has likely been surgica lly resected. Small amount of ascites in the deep pelvis. 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 Severe lumbar spondylosis. No suspicious lytic, blastic or abnormally FDG avid bone les ions. IMPRESSION: 1. Prominent increased FDG uptake within multiple normal-sized lymph nodes bilaterally at the neck, c hest, abdomen and pelvis which are suspicious for metastatic disease with differential including lymp nathalia. 2. A few FDG avid hepatic nodules and focus of increased FDG uptake in the left adrenal gland which i s suspicious for metastatic disease. 3. Mild curvilinear uptake along the periphery of the liver and spleen without CT correlate no gross suspicious for peritoneal metastatic disease. 4. Small to moderate-sized left and very small right pleural effusions. 5. Small amount of ascites in the pelvis. Reviewed, dictated and finalized at location B. IMPRESSION: 1. Prominent increased FDG uptake within multiple normal-sized lymph nodes bila terally at the neck, chest, abdomen and pelvis which are suspicious for metasta tic disease with differential including lymphoma. 2. A few FDG avid hepatic nodules and focus of increased FDG uptake in the left adrenal gland which is suspicious for metastatic disease. 3. Mild curvilinear uptake along the periphery of the liver and spleen without CT correlate no gross suspicious for peritoneal metastatic disease. 4. Small to moderate-sized left and very small right pleural effusions. 5. Small amount of ascites in the pelvis.
[2024-09-29 12:41] LABS: Glucose Point of Care 84 mg/dl (65-105)
--- OUTSIDE RECORDS SUMMARY | 2024-09-29 13:14 | XMS_ITS | Clinical Summary ---
Author Organization [facility] Address [address] [place] [id number] Care Team Providers Care Manager Fitness Name Role Phone Unavailable Primary Care Provider [...] Vaccine ( - 2023-2 5 season) 2024 Meningococcal B Vaccine Aged Out No l onger eligible based on patient's age to complete this topic Meningococcal Vaccine Aged Out No ramon chance eligible based on patient's age to complete this topic RSV Immunizations Under 20 Months Aged Out No longer eligible based on patient's age to complete this topic
--- OUTSIDE RECORDS SUMMARY | 2024-09-29 13:14 | XMS_ITS | Clinical Summary ---
Author Organization [facility] [address] Address [address] [place] [address] Care Team Providers Care Sausage Wrapper Name Role Phone Apollo Norwood MD Primary Care Provider [phone] Allergies No known active allergies Medications hyoscyamine [...] of Treatment [place] [address] MEDIC[address] [facility] [address] Care Teams Sausage Wrapper Relationship Specialty Start Date End Date Apollo Norwood MD [address] [place] [address] PCP - General Internal Medicine 01/12/20
--- OUTSIDE RECORDS SUMMARY | 2024-09-29 13:14 | XMS_ITS | Clinical Summary ---
Author Organization [facility] Address [address] [place] [address] Phone Care Team Providers Care Ore Fielder Name Role Phone Unavailable Primary Care Provider Unavailabl e Allergies No known active allergies Medications pravastatin (PRAVACHOL) 40 mg tablet Take 40 mg by mouth daily with supper. Active losartan (COZAAR) 50 mg tablet Take 100 mg by mouth daily. Active Fish Oil-[place]-3 Fatty Acids 300-500 mg Capsule Take by [...] daily. 30 Tablet 1 2 10:07 AM FAA CERTIFIED POWERPLANT MECHANIC 05/12/20 22 Active Additional Information Patient taking [...] Encounters Date Type Department Care Team Description 09/28/2024 Orders Only [facility] Oncology and Hematology - [address] [place] [id number] Shiv Mosher MD Malignant neoplasm of ovary, unspecified laterality (CMS/HCC) 09/24/2024 Telephone [facility] Oncology and Hematology - [address] [place] [id number] Shiv Mosher MD Leg Swelling 09/21/2024 Orders Only [facility] Oncology and Hematology - [address] Shiv Mosher MD Malignant neoplasm of ovary, unspecified laterality ([facility]/HCC) 09/18/2024 Orders Only [facility] Oncology and Hematology - [address] [place] [id number] Shiv Mosher MD 09/17/2024 Telephone [facility] Oncology and Hematology - [address] [place] [id number] Shiv Mosher MD Procedure Change 09/14/2024 Orders Only [facility] Oncology and Hematology - [address] [place] [id number] Shiv Mosher MD Malignant neoplasm of ovary, unspecified laterality ([facility]/HCC) 09/13/2024 Refill [facility] Oncology and Hematology - [address] [place] [id number] Shiv Mosher MD 09/09/2024 External Device Data STL ABSTRACTION Provider, Abstract 09/07/2024 Orders Only [facility] Oncology and Hematology - [address] [place] [phone] Shiv Mosher MD Malignant neoplasm of ovary, unspecified laterality (CMS/HCC) 08/31/2024 Orders Only [facility] Oncology and Hematology - [address] [place] [phone] Shiv Mosher MD Malignant neoplasm of ovary, unspecified laterality (CMS/HCC) 08/29/2024 External Device Data STL ABSTRACTION Provider, Abstract 08/28/2024 External Device Data STL ABSTRACTION Provider, Abstract 08/28/2024 Orders Only [facility] Oncology and Hematology - [address] [place] [phone] Shiv Mosher MD 08/27/2024 8:30 AM FAA CERTIFIED POWERPLANT MECHANIC Office Visit [facility] Oncology and Hematology - [address] [place] [address] Shiv Mosher MD Malignant neoplasm of ovary, unspecified laterality (CMS/HCC) (Primary Dx) 08/27/2024 Orders Only [facility] Oncology and Hematology - [address] [place] [id number] Shiv Mosher MD 08/26/2024 External Device Data STL ABSTRACTION Provider, Abstract 08/24/2024 Orders Only [facility] Oncology and Hematology - [address] [place] [address] Shiv Mosher MD Malignant neoplasm of ovary, unspecified laterality (CMS/HCC) 08/17/2024 Orders Only [facility] Oncology and Hematology - [address] [place] [address] Shiv Mosher MD Malignant neoplasm of ovary, unspecified laterality (CMS/HCC) 08/10/2024 Orders Only [facility] Oncology and Hematology - [address] [place] [phone] Shiv Mosher MD Malignant neoplasm of ovary, unspecified laterality (CMS/HCC) 08/06/2024 Orders Only [facility] Oncology and Hematology - [address] Shiv Mosher MD Malignant neoplasm of ovary, unspecified laterality (CMS/HCC) (Primary Dx) 08/03/2024 Orders Only [facility] Oncology and Hematology - [address] Shiv Mosher MD Malignant neoplasm of ovary, unspecified laterality (CMS/HCC) 07/27/2024 Orders Only [facility] Oncology and Hematology - [address] Shiv Mosher MD Malignant neoplasm of ovary, unspecified laterality (CMS/HCC) 07/20/2024 Orders Only [facility] Oncology and Hematology - [address] Shiv Mosher MD Malignant neoplasm of ovary, unspecified laterality (CMS/HCC) 07/16/2024 8:45 AM FAA CERTIFIED POWERPLANT MECHANIC Office Visit [facility] Oncology and Hematology - [address] [place] [id number] Shiv Mosher MD Malignant neoplasm of ovary, unspecified laterality (CMS/HCC) (Primary Dx) 07/13/2024 Orders Only [facility] Oncology and Hematology - [address] [place] [address] Shiv Mosher MD Malignant neoplasm of ovary, unspecified laterality (CMS/HCC) 07/09/2024 Orders Only [facility] Oncology and Hematology - [address] [place] [address] Shiv Mosher MD 07/06/2024 Orders Only [facility] Oncology and Hematology - [address] [place] [address] Shiv Mosher MD Malignant neoplasm of ovary, unspecified laterality (CMS/HCC) 07/01/2024 Orders Only [facility] Oncology and Hematology [address] [place] [address] Shiv Mosher MD from Last 3 Months Immunizations Immunization Administration Dates Next Due (PFIZER)(12 YR UP) COVID-19 VACCINE - EMERGENCY USE AUTHORIZATION, MRNA, [id number]) 30 MCG/0.3 ML IM SUSP 04/17/2021 Influenza [...] Comments Blood Pressure 167/76 08/27/2024 8:47 AM FAA CERTIFIED POWERPLANT MECHANIC Pulse 86 08/27/2024 8:44 AM FAA CERTIFIED POWERPLANT MECHANIC Temperature 35.5 C (95.9 F) 08/27/2024 8:44 AM FAA CERTIFIED POWERPLANT MECHANIC Respiratory Rate 15 08/27/2024 8:44 AM FAA CERTIFIED POWERPLANT MECHANIC Oxygen Saturation 98% 08/27/2024 8:44 AM FAA CERTIFIED POWERPLANT MECHANIC Inhaled Oxygen Concentration - - Weight 55.2 kg (121 lb 12.8 oz) 08/27/2024 8:44 AM FAA CERTIFIED POWERPLANT MECHANIC Height 157.5 cm (5' 2 ) 05/31/2022 3:03 PM FAA CERTIFIED POWERPLANT MECHANIC Body Mass Index 22.28 05/31/2022 3:03 PM FAA CERTIFIED POWERPLANT MECHANIC Plan of Treatment Upcoming Encounters Date Type Department Care Team (Late st Contact Info) Description 10/08/2024 8:30 AM CDT Office Visit [facility] Oncology and Hematology [address] [place] [address] Shiv Mosher MD [address] [facility] [address] [place] [address] Health Maintenance Due Date Last Done [...] years Discontinued Medical Devices Implanted Type Area Warehouse Freight Handler Device Identifier Shelf Expiration Date Model / Serial / Lot Port Powerport Clearvue 8fr Mri [id number] - [id number] Implanted:Qty : 1 on 12/19/2021 by June Hunter MD at [facility] Port Right: Chest [employer] [id number] 12/21/2022 [id number] / / [id number] Pacemaker Procedures Procedure Name Priority Date/Time Associated Diagnosis Comments COMPREHENSIVE METABOLIC PANEL Routine 09/17/2024 12:59 PM CDT BASIC METABOLIC PANEL Routine 08/27/2024 2:13 PM FAA CERTIFIED POWERPLANT MECHANIC CHG CA 15 3 Routine 08/27/2024 11:38 AM FAA CERTIFIED POWERPLANT MECHANIC COMPREHENSIVE METABOLIC PANEL Routine 08/27/2024 8:40 AM FAA CERTIFIED POWERPLANT MECHANIC CANCER ANTIGEN 15-3 Routine 07/16/2024 3 :32 PM FAA CERTIFIED POWERPLANT MECHANIC BASIC METABOLIC PANEL Routine 07/16/2024 3:15 PM FAA CERTIFIED POWERPLANT MECHANIC COMPREHENSIVE METABOLIC PANEL Routine 07/16/2024 3:11 PM FAA CERTIFIED POWERPLANT MECHANIC COMPREHENSIVE METABOLIC PANEL Routine 07/16/2024 2:42 PM FAA CERTIFIED POWERPLANT MECHANIC CT CHEST ABDOMEN PELVIS W CONT Routine 07/09/2024 10:35 AM FAA CERTIFIED POWERPLANT MECHANIC from Last 3 Months Results * COMPREHENSIVE METABOLIC PANEL (09/17/2024 12:59 PM CDT) Only the most recent of4 resultswithin the time period is included. Blood us Shiv Mosher MD CHEMISTRY ORDERABLES Final Resu lt * BASIC METABOLIC PANEL (08/27/2024 2:13 PM FAA CERTIFIED POWERPLANT MECHANIC) Only the most recent of2 resultswithin the time period is included. Blood us Shiv Mosher MD CHEMISTRY ORDERABLES Final Resu lt * CHG CA 15 3 (08/27/2024 11:38 AM FAA CERTIFIED POWERPLANT MECHANIC) Result Hannah Mosher MD CHG - LABORATORY Final Result * CANCER ANTIGEN 15-3 (07/16/2024 3:32 PM FAA CERTIFIED POWERPLANT MECHANIC) Blood us Shiv Mosher MD CHEMISTRY ORDERABLES Final Resu lt * CT CHEST ABDOMEN PELVIS W CONT (07/09/2024 10:35 AM FAA CERTIFIED POWERPLANT MECHANIC) Anatomical Region Laterality Modality Chest Computed Tomogra phy us Shiv Mosher MD CT ORDERABLES Final Result from Last 3 [place] [address] [facility] SUPP MEDICARE PART A AND B RX [employer] Medicare Part D MEDICARE PART A AND B BCBS SUPP Advance Directives For more information, please contact: [phone] Documents on File Type Date Recorded Patient Center Rep Expl 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
--- OUTSIDE RECORDS SUMMARY | 2024-09-29 13:14 | XMS_ITS | Encounter Summary ---
Author Organization [facility] Address [address] [place] [address] Care Team Providers Care Prescription Eyeglass Maker Name Role Phone Unavailable Primary Care Provider Unavailabl e Encounter Details Date Type Department Care Team (Late Contact Info) Description 09/28/2024 Orders Only [facility] Oncology and [facility] [address] [place] [address] Shiv Mosher MD [address] [place], [place] [address] [address] [place] [address] Malignant neoplasm of ovary, unspecified laterality [...] Description 10/08/2024 8:30 AM CDT Office Visit [facility] Oncology [facility] Hematology [facility] [address] [place] [address] Shiv Mosher MD [address] [place] [id number] documented as of this encounter Visit Diagnoses Diagnosis Malignant neoplasm of ovary, unspecified laterality (CMS/HCC) documented in this encounter
--- OUTSIDE RECORDS SUMMARY | 2024-09-29 13:14 | XMS_ITS | Referral Summary ---
Author Organization [facility] [place] [facility] [address] Address [address] [place] [address] Care Team Providers Care Relief Map Modeler Name Role Phone Apollo Norwood MD Primary Care Provider [phone] Allergies No known active allergies Medications hyoscyamine [...] of Treatment [place] [address] MEDICARE [facility] [place] [address] Care Teams Relief Map Modeler Relationship Specialty Start Date End Date Apollo Norwood MD [address] [place] [phone] PCP - General Internal Medicine 01/12/20
== END 2024-09-29 11:47 | disposition home or self-care (01) ==
PROVIDERS: PCP Physician Assistant Medical; Visit Provider Internal Medicine Hematology & Oncology
DX: C56.9 Malignant neoplasm of unspecified ovary (principal); J91.0 Malignant pleural effusion; R91.8 Other nonspecific abnormal finding of lung field
CPT/HCPCS: 78815; A9552

== ENCOUNTER 2024-10-08 08:06 | Outpatient (CLI) | payer MEDICARE, SELFPAY ==
--- OUTSIDE RECORDS SUMMARY | 2024-10-08 08:15 | XMS_ITS | Clinical Summary ---
Author Organization [facility] Address [address] [place] [address] Phone Care Team Providers Care Silk Opener Name Role Phone Unavailable Primary Care Provider Unavailabl e Allergies No known active allergies Medications pravastatin (PRAVACHOL) 40 mg tablet Take 40 mg by mouth daily with supper. Active losartan (COZAAR) 50 mg tablet Take 100 mg by mouth daily. Active Fish Oil-[place]-3 Fatty Acids 300-500 mg Capsule Take by [...] daily. 30 Tablet 1 2 10:07 AM FORENSIC ECONOMIST 05/12/20 22 Active Additional Information Patient taking [...] Encounters Date Type Department Care Team Description 10/05/2024 Orders Only [facility] Oncology and Hematology - [address] [place] [id number] Shiv Mosher MD Malignant neoplasm of ovary, unspecified laterality (CMS/HCC) 09/30/2024 Orders Only [facility] Oncology and Hematology - [address] [place] [id number] Shiv Mosher MD 09/28/2024 Orders Only [facility] Oncology and Hematology - [address] Shiv Mosher MD Malignant neoplasm of ovary, unspecified laterality (CMS/HCC) 09/24/2024 Telephone [facility] Oncology and Hematology - [address] [place] [id number] Shiv Mosher MD Leg Swelling 09/21/2024 Orders Only [facility] Oncology and Hematology - Ariel [address] [place] [id number] Shiv Mosher MD Malignant neoplasm of ovary, unspecified laterality (CMS/HCC) 09/18/2024 Orders Only [facility] Oncology and Hematology - [address] Shiv Mosher MD 09/17/2024 Telephone [facility] Oncology and Hematology - [address] [place] [id number] Shiv Mosher MD Procedure Change 09/14/2024 Orders Only [facility] Oncology and Hematology - [address] [place] [id number] Shiv Mosher MD Malignant neoplasm of ovary, unspecified laterality (CMS/HCC) 09/13/2024 Refill [facility] Oncology and Hematology - [address] [place] [id number] Shiv Mosher MD 09/09/2024 External Device Data STL ABSTRACTION Provider, Abstract 09/07/2024 Orders Only [facility] Oncology and Hematology - [address] [place] [id number] Shiv Mosher MD Malignant neoplasm of ovary, unspecified laterality (CMS/HCC) 08/31/2024 Orders Only [facility] Oncology and Hematology - [address] [place] [id number] Shiv Mosher MD Malignant neoplasm of ovary, unspecified laterality (CMS/HCC) 08/29/2024 External Device Data STL ABSTRACTION Provider, Abstract 08/28/2024 External Device Data STL ABSTRACTION Provider, Abstract 08/28/2024 Orders Only [facility] Oncology and Hematology - [address] [place] [id number] Shiv Mosher MD 08/27/2024 8:30 AM FORENSIC ECONOMIST Office Visit [facility] Oncology and Hematology - [address] [place] [id number] Shiv Mosher MD Malignant neoplasm of ovary, unspecified laterality (CMS/HCC) (Primary Dx) 08/27/2024 Orders Only [facility] Oncology and Hematology - [address] [place] [id number] Shiv Mosher MD 08/26/2024 External Device Data STL ABSTRACTION Provider, Abstract 08/24/2024 Orders Only [facility] Oncology and Hematology - [address] [place] [id number] Shiv Mosher MD Malignant neoplasm of ovary, unspecified laterality (CMS/HCC) 08/17/2024 Orders Only [facility] Oncology and Hematology - [address] [place] [address] Shiv Mosher MD Malignant neoplasm of ovary, unspecified laterality (CMS/HCC) 08/10/2024 Orders Only [facility] Oncology and Hematology - [address] [place] [address] Shiv Mosher MD Malignant neoplasm of ovary, unspecified laterality (CMS/HCC) 08/06/2024 Orders Only [facility] Oncology and Hematology - [address] [place] [address] Shiv Mosher MD Malignant neoplasm of ovary, unspecified laterality (CMS/HCC) (Primary Dx) 08/03/2024 Orders Only [facility] Oncology and Hematology - [address] Shiv Mosher MD Malignant neoplasm of ovary, unspecified laterality (CMS/HCC) 07/27/2024 Orders Only [facility] Oncology and Hematology - [address] Shiv Mosher MD Malignant neoplasm of ovary, unspecified laterality (CMS/HCC) 07/20/2024 Orders Only [facility] Oncology and Hematology - [address] Shiv Mosher MD Malignant neoplasm of ovary, unspecified laterality (CMS/HCC) 07/16/2024 8:45 AM FORENSIC ECONOMIST Office Visit [facility] Oncology and Hematology - [place] [address] Shiv Mosher MD Malignant neoplasm of ovary, unspecified laterality (CMS/HCC) (Primary Dx) 07/13/2024 Orders Only [facility] Oncology and Hematology - [address] [place] [address] Shiv Mosher MD Malignant neoplasm of ovary, unspecified laterality (CMS/HCC) from Last 3 Months Immunizations Immunization Administration Dates Next Due (PFIZER)(12 YR UP) COVID-19 VACCINE - EMERGENCY USE AUTHORIZATION, MRNA, [id number](PF) 30 MCG/0.3 ML IM SUSP 04/17/2021 Influenza [...] Comments Blood Pressure 167/76 08/27/2024 8:47 AM FORENSIC ECONOMIST Pulse 86 08/27/2024 8:44 AM FORENSIC ECONOMIST Temperature 35.5 C (95.9 F) 08/27/2024 8:44 AM FORENSIC ECONOMIST Respiratory Rate 15 08/27/2024 8:44 AM FORENSIC ECONOMIST Oxygen Saturation 98% 08/27/2024 8:44 AM FORENSIC ECONOMIST Inhaled Oxygen Concentration - - Weight 55.2 kg (121 lb 12.8 oz) 08/27/2024 8:44 AM FORENSIC ECONOMIST Height 157.5 cm (5' 2 ) 05/31/2022 3:03 PM FORENSIC ECONOMIST Body Mass Index 22.28 05/31/2022 3:03 PM FORENSIC ECONOMIST Plan of Treatment Upcoming Encounters Date Type Department Care Team (Late st Contact Info) Description 10/08/2024 8:30 AM CDT Office Visit [facility] Oncology and Hematology - [address] [place] [address] Shiv Mosher MD [address] [facility] [employer] [address] [place] [address] Health Maintenance Due Date Last [...] years Discontinued Medical Devices Implanted Type Area Piper Helper Device Identifier Shelf Expiration Date Model / Serial / Lot Port Powerport Clearvue 8fr Mri [id number] - [id number] Implanted:Qty : 1 on 12/19/2021 by June Hunter MD at [facility] Port Right: Chest [employer] [id number] 12/21/2022 [id number] / / [id number] Pacemaker Procedures Procedure Name Priority Date/Time Associated Diagnosis Comments GLUCOSE LEVEL Routine 09/29/2024 12:55 PM CDT PET BONE IMG W CT SKL BSE MID THG Routine 09/29/2024 10:14 AM CDT COMPREHENSIVE METABOLIC PANEL Routine 09/17/2024 12:59 PM CDT BASIC METABOLIC PANEL Routine 08/27/2024 2:13 PM FORENSIC ECONOMIST CHG CA 15 3 Routine 08/27/2024 11:38 AM FORENSIC ECONOMIST COMPREHENSIVE METABOLIC PANEL Routine 08/27/2024 8:40 AM FORENSIC ECONOMIST CANCER ANTIGEN 15-3 Routine 07/16/2024 3 :32 PM FORENSIC ECONOMIST BASIC METABOLIC PANEL Routine 07/16/2024 3:15 PM FORENSIC ECONOMIST COMPREHENSIVE METABOLIC PANEL Routine 07/16/2024 3:11 PM FORENSIC ECONOMIST COMPREHENSIVE METABOLIC PANEL Routine 07/16/2024 2:42 PM FORENSIC ECONOMIST from Last 3 Months Results * GLUCOSE LEVEL (09/29/2024 12:55 PM CDT) Blood Shiv Mosher MD CHEMISTRY ORDERABLES Final Resu lt * PET BONE IMG W CT SKB MDTH (09/29/2024 10:14 AM CDT) Anatomical Region Laterality Modality Positron Emissio n Tomography (PET) Shiv Mosher MD PE ORDERABLES Final Result * COMPREHENSIVE METABOLIC PANEL (09/17/2024 12:59 PM CDT) Only the most recent of4 resultswithin the time period is included. Blood Shiv Mosher MD CHEMISTRY ORDERABLES Final Resu lt * BASIC METABOLIC PANEL (08/27/2024 2:13 PM FORENSIC ECONOMIST) Only the most recent of2 resultswithin the time period is included. Blood Shiv Mosher MD CHEMISTRY ORDERABLES Final Resu lt * CHG CA 15 3 (08/27/2024 11:38 AM FORENSIC ECONOMIST) Result [facility] Shiv Mosher MD CHG - LABORATORY Final Result * CANCER ANTIGEN 15-3 (07/16/2024 3:32 PM FORENSIC ECONOMIST) Blood us Shiv Mosher MD CHEMISTRY ORDERABLES Final Resu lt from Last [address] [place] [address] [facility] SUPP MEDICARE PART A AND B RX [employer]ER[employer] Medicare Part D MEDICARE PART A AND B BCBS SUPP Advance Directives For more information, please contact: [phone] Documents on File Type Date Recorded Patient Lcpc Expl 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
--- OUTSIDE RECORDS SUMMARY | 2024-10-08 08:15 | XMS_ITS | Clinical Summary ---
Author Organization [facility] [place] [address] Address [address] [place] [address] Care Team Providers Care Sap Payroll Consultant Name Role Phone Apollo Norwood MD Primary Care Provider [phone] Allergies No known active allergies Medications hyoscyamine [...] of Treatment [place] [address] [address] [place] [address] Care Teams Sap Payroll Consultant Relationship Specialty Start Date End Date Apollo Norwood MD [address] [place] [phone] PCP - General Internal Medicine 01/12/20
--- OUTSIDE RECORDS SUMMARY | 2024-10-08 08:15 | XMS_ITS | Referral Summary ---
Author Organization [facility] [place] [address] Address [address] [place] [address] Care Team Providers Care Market Risk Manager Name Role Phone Apollo Norwood MD Primary Care Provider Allergies No known active allergies Medications hyoscyamine [...] of Treatment Not [place] [address] MEDICARE [facility] [place] [address] Care Teams Market Risk Manager Relationship Specialty Start Date End Date Apollo Norwood MD [address] [place] [phone] PCP - General Internal Medicine 01/12/20
--- OUTSIDE RECORDS SUMMARY | 2024-10-08 08:15 | XMS_ITS | Clinical Summary ---
Author Organization [facility] Address [address] [place] [address] Care Team Providers Care Philanthropy Officer Name Role Phone Unavailable Primary Care Provider [...] 1991 Dexa Scan (General) 2006 Pneumococcal Vaccine: 50+ Ye ars (1 of 1 - PCV) [...]
--- OUTSIDE RECORDS SUMMARY | 2024-10-08 08:15 | XMS_ITS | Encounter Summary ---
Author Organization [facility] AKASHIActive Marti [facility] Address [address] [place] [address] Care Team Providers Care Joy Loading Machine Operator Name Role Phone Unavailable Primary Care Provider Unavailabl e Encounter Details Date Type Department Care Team (Late Contact Info) Description 10/05/2024 Orders Only [facility] Oncology and [facility] [address] [place] [address] Shiv Mosher MD [address] [place], [place] [address] [place] [address] Malignant neoplasm of ovary, unspecified laterality [...] 10/08/2024 8:30 AM CDT Office Visit [facility] Oncology [facility] Hematology [facility] [address] [place] [address] Shiv Mosher MD [address] [place] [address] documented as of this encounter Visit Diagnoses Diagnosis Malignant neoplasm of ovary, unspecified laterality (CMS/HCC) documented in this encounter
[2024-10-08 09:51] LABS: Magnesium 2.8 mg/dL (1.6-2.3)
== END 2024-10-08 08:07 | disposition home or self-care (01) ==
PROVIDERS: PCP Physician Assistant Medical; Visit Provider Physician Assistant Medical
DX: R79.0 Abnormal level of blood mineral (principal); N17.9 Acute kidney failure, unspecified
CPT/HCPCS: 36415; 83735

== ENCOUNTER 2024-10-15 06:55 | Outpatient (CLI) | payer MEDICARE, SELFPAY ==
--- NOTE | ~2024-10-15 | NM_ITS ---
EXAMINATION: NM phuc stress w perfusion DATE: 10/15/2024 09:47 INDICATION: Chest pain TECHNIQUE: Rest images were obtained following intravenous administration of 11.9 mCi Tc99m tetrofosm in (Myoview). The patient was infused intravenously with Lexiscan (Regadenoson). Then, 34.3 mCi Tc99m tetrofosmin (Myoview) was administered intravenously, and stress images were obtained. Data was jake nstructed into short axis and horizontal and vertical long axis SPECT images. Gated SPECT images were also obtained. COMPARISON: 03/11/2020 FINDINGS: Small region of mild nonreversible decreased activity at the apical septal segment consiste nt with infarct. No reversible ischemia. There is normal left ventricular chamber size and ejection f raction. There is paradoxical septal motion. Left ventricular ejection fraction measures 69%. IMPRESSION: 1. Small mild apical septal infarct, new since the prior study. No reversible ischemia. 2. Left ventricular ejection fraction measuring 69%. 2. Paradoxical septal motion likely related to reported pacemaker placement. Reviewed, dictated and finalized at location A. IMPRESSION: 1. Small mild apical septal infarct, new since the prior study. No reversible i schemia. 2. Left ventricular ejection fraction measuring 69%. 2. Paradoxical septal motion likely related to reported pacemaker placement.
--- OUTSIDE RECORDS SUMMARY | 2024-10-15 06:58 | XMS_ITS | Referral Summary ---
Author Organization [facility] [place] [address] Address [address] [place] [address] Care Team Providers Care Ticketing Clerk Name Role Phone Apollo Norwood MD Primary Care Provider [phone] Allergies No known active allergies Medications hyoscyamine [...] of Treatment [place] [address] MEDICARE [facility] [address] Care Teams Ticketing Clerk Relationship Specialty Start Date End Date Apollo Norwood MD [address] [place] [phone] PCP - General Internal Medicine 01/12/20
--- OUTSIDE RECORDS SUMMARY | 2024-10-15 06:58 | XMS_ITS | Encounter Summary ---
Author Organization [facility] AKASHFilmaka Marti [facility] Address [address] [place] [address] Care Team Providers Care Gear Tester Name Role Phone Unavailable Primary Care Provider Unavailabl e Encounter Details Date Type Department Care Team (Late Contact Info) Description 10/12/2024 Orders Only [facility] Oncology and [facility] [address] [place] [address] Shiv Mosher MD [facility] [employer] [address] [place] [address] Malignant neoplasm of ovary, unspecified laterality [...] Department Care Team (Late Contact Info) Description 10/29/2024 8:30 AM CDT Office Visit [facility] Oncology [facility] [address] [place] [address] Shiv Mosher MD [address] [place] [address] documented as of this encounter Procedures Procedure Name Priority Date/Time Associated Diagnosis Comments CANCER ANTIGEN 125 Routine 10/08/2024 1:24 PM CDT documented in this encounter Results * CANCER ANTIGEN 125 (10/08/2024 1:24 PM CDT) Blood us Shiv Mosher MD CHEMISTRY ORDERABLES Final Resu lt documented in this encounter Visit Diagnoses Diagnosis Malignant neoplasm of ovary, unspecified laterality (CMS/HCC) documented in this encounter
--- OUTSIDE RECORDS SUMMARY | 2024-10-15 06:58 | XMS_ITS | Clinical Summary ---
Author Organization [facility] Address [address] [place] [address] Phone Care Team Providers Care Director Of Nuclear Medicine Name Role Phone Unavailable Primary Care Provider Unavailabl e Allergies No known active allergies Medications pravastatin (PRAVACHOL) 40 mg tablet Take 40 mg by mouth daily with supper. Active losartan (COZAAR) 50 mg tablet Take 100 mg by mouth daily. Active Fish Oil-Miller-3 Fatty Acids 300-500 mg Capsule Take by [...] 2 times daily as needed for Constipation. Active acetaminophen (TYLENOL) 500 mg tablet Take 500 mg by mouth. Active aspirin (ECOTRIN EC) 81 mg Tablet, Delayed Release (E.C.) Active ASCORBIC ACID, VITAMIN C, ORAL Take by mouth. Activ e potassium chloride (KLOR-CON) 10 mEq Extended Release tabletIndicat ions:Chronic anemia Take 1 Tablet (10 mEq) by mouth daily with breakfast. 30 Tablet 3 022 Active amLODIPine (NORVASC) 10 mg tablet Starting 05/12. Take 1 Tablet (10 mg) by mouth daily. 30 Tablet 1 2 10:07 AM SET ILLUSTRATOR Active Additional Information Patient taking differently: 5 mgOral DAILY, Reported on 06/04/2024 oxyBUTYnin chloride (DITROPAN XL) 10 mg Extended Release 24 hour tablet Active loperamide (IMODIUM) 2 mg Tablet Take 2 mg by mouth 4 times daily as needed for Diarrhea/Loose Stools. Active famotidine (PEPCID) 20 mg tablet Take 20 mg by mouth 2 times daily. Active dexAMETHasone (DECADRON) 4 mg tablet Take 4mg bid one day before the chemo and on the day of chemo and one day after the chemo 30 Tablet 4 Active BENZONATATE ORAL Take 100 mg by mouth 1 time daily as needed. Active ALPRAZolam (XANAX) 0.25 mg tablet Take 0.25 mg by mouth 3 times daily as needed for Anxiety. Active cholestyramin e, with sugar, (QUESTRAN) 4 gram Powder in Packet Take 1 Packet by mouth 2 times daily. 60 Packet 1 024 Active ondansetron (ZOFRAN ODT) 8 mg Tablet, Rapid Dissolve Dissolve 1 tablet on top of tongue then swallow with saliva every 8 hours as needed for nausea or vomiting 30 Tablet 1 024 Active lidocaine-otilia locaine (EMLA) 2.5-2.5 % Cream Apply to affected area see administration instructions. 30 Gram 1 024 Active celecoxib (CeleBREX) 200 mg capsule Take 1 Capsule by mouth daily. Active hydroCHLOROth iazide 25 mg tablet Take 1 Tablet by mouth daily. Active hydrALAZINE (APRESOLINE) 50 mg tablet Take 1 Tablet by mouth 3 times daily. Active furosemide (LASIX) 20 mg tablet TAKE 1 TABLET(20 MG) BY MOUTH DAILY 30 Tablet 2 Active carvediloL (COREG) 12.5 mg tablet Take 12.5 mg by mouth every 12 hours. Active cefdinir (OMNICEF) 300 mg capsule Take 1 Capsule by mouth 2 times daily. Active magnesium OXIDE (MAG-OX) 200 mg Tablet Take 200 mg by mouth 2 times daily. Active MAGNESIUM ORAL Take by mouth. 2024 Discontinued(A lternate therapy prescribed) albuterol sulfate HFA 90 mcg/actuation aerosol inhaler Take 2 Puffs by inhalation every 6 hours as needed for Shortness of Breath. 2024 Discontinued(A lternate therapy prescribed) furosemide (Lasix) 20 mg tablet Take 1 Tablet (20 mg) by mouth daily. 30 Tablet 2 024 2024 Discontinued Active Problems Problem Noted Date [...] Encounters Date Type Department Care Team Description 10/13/2024 External Device Data STL ABSTRACTION Provider, Abstract 10/12/2024 Orders Only [facility] Oncology and Hematology - [address] Shiv Mosher MD Malignant neoplasm of ovary, unspecified laterality (CMS/HCC) 10/09/2024 Orders Only [facility] Oncology and Hematology [address] [place] [address] Shiv Mosher MD 10/08/2024 8:30 AM CDT Office Visit [facility] Oncology and Hematology [address] [place] [address] Shiv Mosher MD Renal insufficiency (Primary Dx); Malignant neoplasm of ovary, unspecified laterality (CMS/HCC) 10/05/2024 Orders Only [facility] Oncology and Hematology [address] [place] [address] Shiv Mosher MD Malignant neoplasm of ovary, unspecified laterality (CMS/HCC) 09/30/2024 Orders Only [facility] Oncology and Hematology - [address] [place] [address] Shiv Mosher MD 09/28/2024 Orders Only [facility] Oncology and Hematology - [address] [place] [address] Shiv Msoher MD Malignant neoplasm of ovary, unspecified laterality (CMS/HCC) 09/24/2024 Telephone [facility] Oncology and Hematology - [address] [place] [address] Shiv Mosher MD Leg Swelling 09/21/2024 Orders Only [facility] Oncology and Hematology - [address] [place] [address] Shiv Mosher MD Malignant neoplasm of ovary, unspecified laterality (CMS/HCC) 09/18/2024 Orders Only [facility] Oncology and Hematology - [address] [place] [address] Shiv Mosher MD 09/17/2024 Telephone [facility] Oncology and Hematology - [address] [place] [address] Shiv Mosher MD Procedure Change 09/14/2024 Orders Only [facility] Oncology and Hematology - [address] Shiv Mosher MD Malignant neoplasm of ovary, unspecified laterality (CMS/HCC) 09/13/2024 Refill [facility] Oncology and Hematology - [address] Shiv Mosher MD 09/09/2024 External Device Data STL ABSTRACTION Provider, Abstract 09/07/2024 Orders Only [facility] Oncology and Hematology - [address] [place] [id number] Shiv Mosher MD Malignant neoplasm of ovary, unspecified laterality (CMS/HCC) 08/31/2024 Orders Only [facility] Oncology and Hematology - [address] [place] [address] Shiv Mosher MD Malignant neoplasm of ovary, unspecified laterality (CMS/HCC) 08/29/2024 External Device Data STL ABSTRACTION Provider, Abstract 08/28/2024 External Device Data STL ABSTRACTION Provider, Abstract 08/28/2024 Orders Only [facility] Oncology and Hematology - [address] [place] [address] Shiv Mosher MD 08/27/2024 8:30 AM SET ILLUSTRATOR Office Visit [facility] Oncology and Hematology - [address] Shiv Mosher MD Malignant neoplasm of ovary, unspecified laterality (CMS/HCC) (Primary Dx) 08/27/2024 Orders Only [facility] Oncology and Hematology - [address] Shiv Mosher MD 08/26/2024 External Device Data STL ABSTRACTION Provider, Abstract 08/24/2024 Orders Only [facility] Oncology and Hematology - [address] Shiv Mosher MD Malignant neoplasm of ovary, unspecified laterality (CMS/HCC) 08/17/2024 Orders Only [facility] Oncology and Hematology - [address] [place] [id number] Shiv Mosher MD Malignant neoplasm of ovary, unspecified laterality (CMS/HCC) 08/10/2024 Orders Only [facility] Oncology and Hematology - [address] [place] [phone] Shiv Mosher MD Malignant neoplasm of ovary, unspecified laterality (CMS/HCC) 08/06/2024 Orders Only [facility] Oncology and Hematology - [address] [place] [id number] Shiv Mosher MD Malignant neoplasm of ovary, unspecified laterality (CMS/HCC) (Primary Dx) 08/03/2024 Orders Only [facility] Oncology and Hematology [facility] [address] [place] [address] Shiv Mosher MD Malignant neoplasm of ovary, unspecified laterality (CMS/HCC) 07/27/2024 Orders Only [facility] Oncology and Hematology [facility] [address] [place] [address] Shiv Mosher MD Malignant neoplasm of ovary, unspecified laterality (CMS/HCC) 07/20/2024 Orders Only [facility] Oncology and Hematology [facility] [address] [place] [address] Shiv Mosher MD Malignant neoplasm of ovary, unspecified laterality (CMS/HCC) from Last 3 Months Immunizations Immunization Administration Dates Next Due (HAM-IT)(12 YR UP) COVID-19 VACCINE - EMERGENCY USE AUTHORIZATION, MRNA, [id number]) 30 MCG/0.3 ML IM SUSP 04/17/2021 Influenza [...] Sign Reading Time Taken Comments Blood Pressure 133/71 10/08/2024 8:45 AM CDT Pulse 70 10/08/2024 8:45 AM CDT Temperature 35.7 C (96.2 F) 10/08/2024 8:45 AM CDT Respiratory Rate 15 10/08/2024 8:45 AM CDT Oxygen Saturation 98% 10/08/2024 8:45 AM CDT Inhaled Oxygen Concentration - - Weight 52.2 kg (115 lb) 10/08/2024 8:45 AM CDT Height 157.5 cm (5' 2 ) 05/31/2022 3:03 PM SET ILLUSTRATOR Body Mass Index 21.03 05/31/2022 3:03 PM SET ILLUSTRATOR Plan of Treatment Upcoming Encounters Date Type Department Care Team (Late st Contact Info) Description 10/29/2024 8:30 AM CDT Office Visit [facility] Oncology and Hematology - [address] [facility] [address] [place] [address] Shiv Mosher MD [address] [facility] [address] [place] [address] Health Maintenance Due Date Last [...] years Discontinued Medical Devices Implanted Type Area Community Midwife Device Identifier Shelf Expiration Date Model / Serial / Lot Port Powerport Clearvue 8fr Mri [id number] - [id number] Implanted:Qty : 1 on 12/19/2021 by June Hunter MD at [facility] Port Right: Chest [employer] [id number] 12/21/2022 [id number] / / [id number] Pacemaker Procedures Procedure Name Priority Date/Time Associated Diagnosis Comments CANCER ANTIGEN 125 Routine 10/08/2024 1: 24 PM CDT COMPREHENSIVE METABOLIC PANEL Routine 10/08/2024 12:09 PM CDT BASIC METABOLIC PANEL Routine 10/08/2024 12:06 PM CDT GLUCOSE LEVEL Routine 09/29/2024 12:55 PM CDT PET BONE IMG W CT SKL BSE MID THG Routine 09/29/2024 10:14 AM CDT COMPREHENSIVE METABOLIC PANEL Routine 09/17/2024 12:59 PM CDT BASIC METABOLIC PANEL Routine 08/27/2024 2:13 PM SET ILLUSTRATOR CHG CA 15 3 Routine 08/27/2024 11:38 AM SET ILLUSTRATOR COMPREHENSIVE METABOLIC PANEL Routine 08/27/2024 8:40 AM SET ILLUSTRATOR from Last 3 Months Results * CANCER ANTIGEN 125 (10/08/2024 1:24 PM CDT) Blood us Shiv Mosher MD CHEMISTRY ORDERABLES Final Resu lt * COMPREHENSIVE METABOLIC PANEL (10/08/2024 12:09 PM CDT) Only the most recent of3 resultswithin the time period is included. Blood us Shiv Mosher MD CHEMISTRY ORDERABLES Final Resu lt * BASIC METABOLIC PANEL (10/08/2024 12:06 PM CDT) Only the most recent of2 resultswithin the time period is included. Blood us Shiv Mosher MD CHEMISTRY ORDERABLES Final Resu lt * GLUCOSE LEVEL (09/29/2024 12:55 PM CDT) Blood us Shiv Mosher MD CHEMISTRY ORDERABLES Final Resu lt * PET BONE IMG W CT SKB MD (09/29/2024 10:14 AM CDT) Anatomical Region Laterality Modality Positron Emissio n Tomography (PET) us Shiv Mosher MD PE ORDERABLES Final Result * CHG CA 15 3 (08/27/2024 11:38 AM SET ILLUSTRATOR) Shiv Mosher MD CHG - LABORATORY Final Result from Last 3 Months Insurance BCBS SUPP MEDICARE PART A AND B RX [employer] Medicare Part D MEDICARE PART A AND B BCBS SUPP Advance Directives For more information, please contact: [phone] Documents on File Type Date Recorded Patient Software Educator Expl 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
--- OUTSIDE RECORDS SUMMARY | 2024-10-15 06:58 | XMS_ITS | Clinical Summary ---
Author Organization [facility] Address [address] [place] [address] Care Team Providers Care Damper Maker Name Role Phone Unavailable Primary Care [...] Td Vaccines ( 1 - Tdap) 1960 Pneumococcal Vaccine: 50+ Ye ars (1 of 1 - PCV) 1991 Zoster Vaccines (1 of 2) 1991 Dexa Scan (General) 2006 RSV Immunization or 60+ Years (1 - 1-dose 75+ series) 2016 COVID-19 Vaccine (2023-2 5 season) 2024 Meningococcal B Vaccine Aged Out No l onger eligible based on patient's age to complete this topic Meningococcal Vaccine Aged Out No ramon chance eligible based on patient's age to complete this topic RSV Immunizations Under 20 Months Aged Out No longer eligible based on patient's age to complete this topic
--- OUTSIDE RECORDS SUMMARY | 2024-10-15 06:58 | XMS_ITS | Clinical Summary ---
Author Organization [facility] [address] Address [address] [place] [address] Care Team Providers Care Head Worker Name Role Phone Apollo Norwood MD Primary Care Provider [phone] Allergies No known active allergies Medications hyoscyamine [...] of Treatment Not [place] [address] MED[address] [facility] [address] Care Teams Head Worker Relationship Specialty Start Date End Date Apollo Norwood MD [address] [place] [id number] PCP - General Internal Medicine 01/12/20
--- NOTE | 2024-10-15 08:45 | EST_ITS ---
Patient Info Name: Ml Wells Age: 84 years : 1940 Gender: Female Ht: 62 in Wt: 116 lbs BSA: 1.52 m2 Exam Date: 10/15/2024 8:54 AM Exam Location: Echo Lab Patient Status: Outpatient Admit Date: 10/15/2024 Staff Ordering Physician: Jose Varghese DO Attending Provider: Jose Varghese DO Exercise Technologist: Loyda Guillen RDCS Exercise Physician: Jose Varghese DO Exam Type: CA stress phuc w NM Study Info Indications R07.9 - Chest pain, unspecified A regadenoson stress test was performed. Summary 1. 1. Inconclusive lexiscan stress test for ischemic ST changes by ECG criteria due to paced ventricular rhythm. 2. 2. Baseline hypertension. 3. 3. Nuclear scan to follow and will be reported separately. Please correlate with it. 4. 4. Patient informed of the above results. Protocol: Lexiscan Stress ECG Details Stage: REST Duration (min): 1 min : 53 sec HR (bpm): 70 SBP (mmHg): 178 DBP (mmHg): 68 Stage: REST Duration (min): 9 min : 45 sec HR (bpm): 70 SBP (mmHg): 178 DBP (mmHg): 68 Stage: STAGE 1 Duration (min): 1 min : 0 sec HR (bpm): 75 SBP (mmHg): 178 DBP (mmHg): 68 Stage: RECOVERY Duration (min): 1 min : 0 sec HR (bpm): 82 SBP (mmHg): 172 DBP (mmHg): 44 Stage: RECOVERY Duration (min): 2 min : 0 sec HR (bpm): 82 SBP (mmHg): 135 DBP (mmHg): 43 Stage: RECOVERY Duration (min): 3 min : 0 sec HR (bpm): 79 SBP (mmHg): 106 DBP (mmHg): 43 Stage: RECOVERY Duration (min): 4 min : 0 sec HR (bpm): 78 SBP (mmHg): 106 DBP (mmHg): 43 Stage: RECOVERY Duration (min): 5 min : 0 sec HR (bpm): 77 SBP (mmHg): 109 DBP (mmHg): 44 Stage: RECOVERY Duration (min): 6 min : 0 sec HR (bpm): 79 SBP (mmHg): 109 DBP (mmHg): 44 Stage: RECOVERY Duration (min): 6 min : 43 sec HR (bpm): 80 SBP (mmHg): 109 DBP (mmHg): 45 Rest HR: 70 bpm Peak HR: 82 bpm Rest Sys BP: 178 mmHg Peak Sys BP: 172 mmHg Max Pred HR: 137 bpm % Max Pred HR: 60 % Target HR: 116 bpm Max RPP: 14,104 bpm*mmHg Termination Reason: Completed protocol Cardiac Symptoms: Shortness of breath Total Time: 1 min : 0 sec Rest Sanchez BP: 68 mmHg Peak Sanchez BP: 44 mmHg Total Dose: 0.4 mg Resting ECG Electronic AV paced rhythm. Stress ECG No ST changes. Arrhythmias None. Report Signatures
== END 2024-10-15 06:56 | disposition home or self-care (01) ==
LOC: ANHCARD 06:57
PROVIDERS: PCP Physician Assistant Medical; Visit Provider Internal Medicine Cardiovascular Disease
DX: R07.9 Chest pain, unspecified (principal)
CPT/HCPCS: 78452; 93017; A9502; J2785

== ENCOUNTER 2024-11-23 16:43 | Outpatient (CLI) | payer MEDICARE, SELFPAY ==
--- NOTE | ~2024-11-23 | US_ITS ---
EXAMINATION: US renal BI DATE: 11/23/2024 17:12 INDICATION: I10 - Essential (primary) hypertension TECHNIQUE: Multiple grayscale and Doppler ultrasound images of the kidneys were obtained. COMPARISON: Ultrasound abdomen 09/27/2024; CT cap 07/09/2024. FINDINGS: The right kidney measures 8.6 x 4.3 x 3.9 cm. The left kidney measures 9.4 x 5.4 x 4.8 cm. The kidney s demonstrate normal parenchymal echogenicity and bilateral cortical thinning. Prominent bilateral re nal pelvic fat. There is no hydronephrosis. The bladder is normal. Small volume pelvic fluid. 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 Small-volume pelvic ascites. Reviewed, dictated and finalized at location K. 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 Small-volume pel raji ascites.
--- OUTSIDE RECORDS SUMMARY | 2024-11-23 16:46 | XMS_ITS | Encounter Summary ---
Author Organization [facility] [email or web address] [facility] Address [address] [place] [address] Care Team Providers Care Rfid Developer Name Role Phone Unavailable Primary Care Provider Unavailabl e Encounter Details Date Type Department Care Team (Late Contact Info) Description 11/19/2024 Orders Only [facility] Oncology [facility] [address] [place] [address] Shiv Mosher MD [facility] [employer] [address] [place] [address] Social History Tobacco Use Types Packs/Day [...] Department Care Team (Late Contact Info) Description 11/26/2024 8:30 AM CDT Office Visit [facility] Oncology [facility] [address] [place] [address] Shiv Mosher MD [facility] [address] [place] [address] documented as of this encounter Procedures Procedure Name Priority Date/Time Associated Diagnosis Comments COMPREHENSIVE METABOLIC PANEL Routine 11/19/2024 4:05 PM CDT documented in this encounter Results * COMPREHENSIVE METABOLIC PANEL (11/19/2024 4:05 PM CDT) Blood Shiv Mosher MD CHEMISTRY ORDERABLES Final Resu lt documented in this encounter Visit Diagnoses Not on filedocumented in this encounter
--- OUTSIDE RECORDS SUMMARY | 2024-11-23 16:46 | XMS_ITS | Referral Summary ---
Author Organization [facility] [address] Address [address] [place] [address] Care Team Providers Care Commercial Credit Head Name Role Phone Apollo Norwood MD Primary Care Provider [phone] Allergies No known active allergies Medications hyoscyamine [...] 1:44 PM CDT Height 157.5 cm (5' 2) 02/04/2020 1:44 PM CDT Body Mass Index 25.24 02/04/2020 1:44 PM CDT Plan of Treatment Not on [place] [address] MEDICARE [facility] [address] Care Teams Commercial Credit Head Relationship Specialty Start Date End Date Apollo Norwood MD [address] [place] [phone] PCP - General Internal Medicine 01/12/20
--- OUTSIDE RECORDS SUMMARY | 2024-11-23 16:46 | XMS_ITS | Clinical Summary ---
Author Organization [facility] [address] Address [address] [place] [address] Care Team Providers Care Union Organizer Name Role Phone Apollo Norwood MD Primary Care Provider [phone] Allergies No known active allergies Medications hyoscyamine [...] of Treatment Not on file [place] [address] MEDICARE [facility] [place] [address] Care Teams Union Organizer Relationship Specialty Start Date End Date Apollo Norwood MD [address] [place] [id number] PCP - General Internal Medicine 01/12/20
--- OUTSIDE RECORDS SUMMARY | 2024-11-23 16:46 | XMS_ITS | Clinical Summary ---
Author Organization [facility] Address [address] [place] [address] Phone Care Team Providers Care Donor Processor Name Role Phone Unavailable Primary Care Provider Unavailabl e Allergies No known active allergies Medications pravastatin (PRAVACHOL) 40 mg tablet Take 40 mg by mouth daily with supper. Active losartan (COZAAR) 50 mg tablet Take 100 mg by mouth daily. Active Fish Oil-Hancock-3 Fatty Acids 300-500 mg Capsule Take by [...] breakfast. 30 Tablet 3 02/06/20 22 Active amLODIPine (NORVASC) 10 mg tablet Starting 05/12. Take 1 Tablet (10 mg) by mouth daily. 30 Tablet 1 2 10:07 AM REDEVELOPMENT MANAGER 05/12/20 22 Active Additional Information Patient [...] chemo 30 Tablet 4 06/18/20 23 Active BENZONATATE ORAL Take 100 mg by [...] vomiting 30 Tablet 1 10/03/19 24 Active lidocaine-pril ocaine (EMLA) 2.5-2.5 % Cream Apply to affected area see administration instructions. 30 Gram 1 10/03/19 24 Active celecoxib (CeleBREX) 200 mg capsule Take 1 Capsule by mouth daily. 05/11/20 24 Active hydroCHLOROthi azide 25 mg tablet Take 1 Tablet by mouth daily. 07/02/19 25 Active hydrALAZINE (APRESOLINE) 50 mg tablet Take 1 Tablet by mouth 3 times daily. 08/20/19 25 Active carvediloL (COREG) 12.5 mg tablet Take 12.5 mg by mouth every 12 hours. 09/04/19 25 Active cefdinir (OMNICEF) 300 mg capsule Take 1 Capsule by mouth 2 times daily. 09/25/19 25 Active magnesium OXIDE (MAG-OX) 200 mg Tablet Take 200 mg by mouth 2 times daily. 04/16/20 22 Active furosemide (LASIX) 20 mg tablet Take 1 tablet by mouth BID for 3 days, then take 1 tablet by mouth daily. 33 Tablet 11/14/19 25 Active furosemide (LASIX) 20 mg tablet TAKE 1 TABLET(20 MG) BY MOUTH DAILY 30 Tablet 2 09/17/19 25 025 Discontin ued(Reord er) Active Problems Problem Noted Date Diagnosed Date [...] Encounters Date Type Department Care Team Description 11/23/2024 Orders Only [facility] - [address] [place] [address] Shiv Mosher MD Malignant neoplasm of ovary, unspecified laterality ([facility]/HCC) 11/19/2024 Orders Only [facility] - [place] [place] [id number] Shiv Mosher MD 11/18/2024 Abstract [facility] - [place] [place] [address] Shiv Mosher MD 11/16/2024 Orders Only [facility] - [place] [place] [address] Shiv Mosher MD Malignant neoplasm of ovary, unspecified laterality (CMS/HCC) 11/13/2024 Refill [facility] - [place] [address] [place] [address] Shiv Mosher MD 11/09/2024 Orders Only [facility] - [place] [address] [place] [address] Shiv Mosher MD Malignant neoplasm of ovary, unspecified laterality (CMS/HCC) 11/05/2024 Telephone [facility] - [address] [place] [address] Shiv Mosher MD Chemotherapy Concerns 11/03/2024 Orders Only [facility] - [address] [place] [address] Shiv Mosher MD 11/02/2024 Orders Only [facility] - [address] [place] [address] Shiv Mosher MD Malignant neoplasm of ovary, unspecified laterality (CMS/HCC) 10/30/2024 Orders Only [facility] - [place] [address] [place] [id number] Shiv Mosher MD 10/29/2024 8:30 AM CDT Office Visit [facility] [address] [place] [address] Shiv Mosher MD Malignant neoplasm of ovary, unspecified laterality (CMS/HCC) (Primary Dx) 10/28/2024 Orders Only [facility] - [place] [address] Shiv Mosher MD Malignant neoplasm of ovary, unspecified laterality (CMS/HCC) (Primary Dx) 10/26/2024 Orders Only [facility] - [place] [address] Shiv Mosher MD Malignant neoplasm of ovary, unspecified laterality (CMS/HCC) 10/19/2024 Orders Only [facility] - [place] [address] Shiv Mosher MD Malignant neoplasm of ovary, unspecified laterality (CMS/HCC) 10/16/2024 Orders Only [facility] - [place] [address] [place] [address] Shiv Mosher MD 10/13/2024 External Device Data STL ABSTRACTION Provider, Abstract 10/12/2024 Orders Only [facility] - [address] [place] [address] Shiv Mosher MD Malignant neoplasm of ovary, unspecified laterality (CMS/HCC) 10/09/2024 Orders Only [facility] - [place] [address] [place] [address] Shiv Mosher MD 10/08/2024 8:30 AM CDT Office Visit [facility] - [place] [address] [place] [address] Shiv Mosher MD Renal insufficiency (Primary Dx); Malignant neoplasm of ovary, unspecified laterality (CMS/HCC) 10/05/2024 Orders Only [facility] - [place] [address] [place] [address] Shiv Mosher MD Malignant neoplasm of ovary, unspecified laterality (CMS/HCC) 09/30/2024 Orders Only [facility] - [place] [address] [place] [address] hSiv Mosher MD 09/28/2024 Orders Only [facility] - [place] [address] [place] [address] Shiv Mosher MD Malignant neoplasm of ovary, unspecified laterality (CMS/HCC) 09/24/2024 Telephone [facility] - [place] [address] [place] [address] Shiv Mosher MD Leg Swelling 09/21/2024 Orders Only [facility] - [place] [address] [place] [address] Shiv Mosher MD Malignant neoplasm of ovary, unspecified laterality (CMS/HCC) 09/18/2024 Orders Only [facility] - [address] [place] [address] Shiv Mosher MD 09/17/2024 Telephone [facility] - [place] [address] Shiv Mosher MD Procedure Change 09/14/2024 Orders Only [facility] - [address] [address] Shiv Mosher MD Malignant neoplasm of ovary, unspecified laterality (CMS/HCC) 09/13/2024 Refill [facility] - [place] [address] Shiv Mosher MD 09/09/2024 External Device Data STL ABSTRACTION Provider, Abstract 09/07/2024 Orders Only [facility] - [place] [address] Shiv Mosher MD Malignant neoplasm of ovary, unspecified laterality (CMS/HCC) 08/31/2024 Orders Only [facility] - [place] [address] [place] [id number] Shiv Mosher MD Malignant neoplasm of ovary, unspecified laterality (CMS/HCC) 08/29/2024 External Device Data STL ABSTRACTION Provider, Abstract 08/28/2024 External Device Data STL ABSTRACTION Provider, Abstract 08/28/2024 Orders Only [facility] - [place] [address] Shiv Mosher MD 08/27/2024 8:30 AM REDEVELOPMENT MANAGER Office Visit [facility] - [place] [address] Shiv Mosher MD Malignant neoplasm of ovary, unspecified laterality (CMS/HCC) (Primary Dx) 08/27/2024 Orders Only [facility] [address] [place] [address] Shiv Mosher MD 08/26/2024 External Device Data STL ABSTRACTION Provider, Abstract 08/24/2024 Orders Only [facility] [address] [place] [address] Shiv Mosher MD Malignant neoplasm of ovary, unspecified laterality (CMS/HCC) from Last 3 Months Immunizations Immunization Administration Dates Next Due ([employer])(12 YR UP) COVID-19 VACCINE - EMERGENCY USE AUTHORIZATION, MRNA, [id number](PF) 30 MCG/0.3 ML IM SUSP 04/17/2021 Influenza [...] Sign Reading Time Taken Comments Blood Pressure 101/51 10/29/2024 8:39 AM CDT Pulse 75 10/29/2024 8:39 AM CDT Temperature 35.9 C (96.7 F) 10/29/2024 8:39 AM CDT Respiratory Rate 15 10/29/2024 8:39 AM CDT Oxygen Saturation 97% 10/29/2024 8:39 AM CDT Inhaled Oxygen Concentration - - Weight 49.9 kg (110 lb) 10/29/2024 8:39 AM CDT Height 157.5 cm (5' 2) 05/31/2022 3:03 PM REDEVELOPMENT MANAGER Body Mass Index 20.12 05/31/2022 3:03 PM REDEVELOPMENT MANAGER Plan of Treatment Upcoming Encounters Date Type Department Care Team (Late st Contact Info) Description 11/26/2024 8:30 AM CDT Office Visit [facility] - [place] [address] [facility] [address] [place] [address] Shiv Mosher MD [address] [facility] [address] [place] [address] Health Maintenance Due Date Last [...] years Discontinued Medical Devices Implanted Type Area Lining Machine Operator Device Identifier Shelf Expiration Date Model / Serial / Lot Port Powerport Clearvue 8fr Mri [id number] - [id number] Implanted:Qty : 1 on 12/19/2021 by June Hunter MD at [facility] Port Right: Chest [employer] [id number] 12/21/2022 [id number] / / [id number] Pacemaker Procedures Procedure Name Priority Date/Time Associated Diagnosis Comments COMPREHENSIVE METABOLIC PANEL Routine 11/19/2024 4:05 PM CDT CHG CA 125 Routine 10/29/2024 3:25 PM CDT BASIC METABOLIC PANEL Routine 10/29/2024 2:34 PM CDT COMPREHENSIVE METABOLIC PANEL Routine 10/29/2024 2:18 PM CDT CANCER ANTIGEN 125 Routine 10/15/2024 12 :53 PM CDT CBC MIXED CELL DIFFERENTIAL Routine 10/15/2024 11:32 AM CDT COMPREHENSIVE METABOLIC PANEL Routine 10/15/2024 8:36 AM CDT CANCER ANTIGEN 125 Routine 10/08/2024 1: 24 PM CDT COMPREHENSIVE METABOLIC PANEL Routine 10/08/2024 12:09 PM CDT BASIC METABOLIC PANEL Routine 10/08/2024 12:06 PM CDT GLUCOSE LEVEL Routine 09/29/2024 12:55 PM CDT PET BONE IMG W CT SKL BSE MID THG Routine 09/29/2024 10:14 AM CDT COMPREHENSIVE METABOLIC PANEL Routine 09/17/2024 12:59 PM CDT BASIC METABOLIC PANEL Routine 08/27/2024 2:13 PM REDEVELOPMENT MANAGER CHG CA 15 3 Routine 08/27/2024 11:38 AM REDEVELOPMENT MANAGER COMPREHENSIVE METABOLIC PANEL Routine 08/27/2024 8:40 AM REDEVELOPMENT MANAGER from Last 3 Months Results * COMPREHENSIVE METABOLIC PANEL (11/19/2024 4:05 PM CDT) Only the most recent of6 resultswithin the time period is included. Blood us Shiv Mosher MD CHEMISTRY ORDERABLES Final Resu lt * CHG CA 125 (10/29/2024 3:25 PM CDT) us Shiv Mosher MD CHG - LABORATORY Final Result * BASIC METABOLIC PANEL (10/29/2024 2:34 PM CDT) Only the most recent of3 resultswithin the time period is included. Blood us Shiv Mosher MD CHEMISTRY ORDERABLES Final Resu lt * CANCER ANTIGEN 125 (10/15/2024 12:53 PM CDT) Only the most recent of2 resultswithin the time period is included. Blood us Shiv Mosher MD CHEMISTRY ORDERABLES Final Resu lt * CBC MIXED CELL DIFFERENTIAL (10/15/2024 11:32 AM CDT) Blood us Shiv Mosher MD HEMATOLOGY ORDERABLES Final Res ult * GLUCOSE LEVEL (09/29/2024 12:55 PM CDT) Blood us Shiv Mosher MD CHEMISTRY ORDERABLES Final Resu lt * PET BONE IMG W CT SKB MDTH (09/29/2024 10:14 AM CDT) Anatomical Region Laterality Modality Positron Emissio n Tomography (PET) us Shiv Mosher MD PE ORDERABLES Final Result * CHG CA 15 3 (08/27/2024 11:38 AM REDEVELOPMENT MANAGER) us Shiv Mosher MD CHG - LABORATORY Final Result from Last 3 Months Insurance [place] [id number] [place] [address] MEDICARE PART A AND B [employer] Medicare Part D MEDICARE PART A AND B [facility] Advance Directives For more information, please contact: [phone] Documents on File Type Date Recorded Patient Painter Chassis Expl 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
--- OUTSIDE RECORDS SUMMARY | 2024-11-23 16:46 | XMS_ITS | Encounter Summary ---
[facility] Address [address] [place] [address] Care Team Providers Care Ecological Risk Assessor Name Role Phone Unavailable Primary Care Provider Unavailabl e Encounter Details Date Type Department Care Team (Late Contact Info) Description 11/23/2024 Orders Only [facility] and [facility] [address] [place] [address] Shiv Mosher MD [address] [place], [place] [address] [address] [place] [address] Malignant neoplasm of ovary, unspecified laterality [...] Description 11/26/2024 8:30 AM CDT Office Visit [facility] [address] [place] [address] Shiv Mosher MD [address] [employer] [address] [place] [address] documented as of this encounter Visit Diagnoses Diagnosis Malignant neoplasm of ovary, unspecified laterality (CMS/HCC) documented in this encounter
== END 2024-11-23 16:44 | disposition home or self-care (01) ==
PROVIDERS: PCP Physician Assistant Medical; Visit Provider Internal Medicine Nephrology
DX: I12.9 Hypertensive chronic kidney disease with stage 1 through stage 4 chronic kidney disease, or unspecified chronic kidney disease (principal); N18.4 Chronic kidney disease, stage 4 (severe)
CPT/HCPCS: 76775

== ENCOUNTER 2025-01-12 10:36 | Emergency (ER) | payer MEDICARE, SELFPAY ==
--- NOTE | ~2025-01-12 | CT_ITS ---
EXAM: CT brain wo con, CT lumbar spine wo con, CT cervical spine wo con - 01/12/2025 12:18 CDT History: 84 years old Female with fall, unknown head injury or LOC COMPARISON: None available. PROCEDURE: CT of the head, cervical and lumbar spine without contrast. Axial, sagittal and coronal reformatted planes were evaluated. Automatic exposure control was used for this study. FINDINGS: CT HEAD: BRAIN PARENCHYMA: No acute hemorrhage. No mass effect or herniation. [place]-white matter differentiatio n is maintained. Mild chronic volume loss. Scattered hypodensities in subcortical and periventricular white matter, likely representing chronic microvascular ischemic changes in this age group. Atherosc lerotic calcification of the intracranial vessels is noted. VENTRICLES/ EXTRA-AXIAL SPACES: No hydrocephalus or extra-axial fluid collection. EXTRACRANIAL STRUCTURES: No calvarial fracture. CT CERVICAL SPINE: No acute fracture or subluxation. Straightening of cervical lordosis, likely positional or may be rel ated to muscle spasm. Multilevel degenerative changes of the cervical spine include varying degrees o f disk space narrowing, endplate osteophytosis as well as facet and uncal arthropathy. Prevertebral s oft tissues are within normal limits. Visualized lung apices are clear. CT LUMBAR SPINE: Multilevel degenerative changes are seen. Intervertebral disc space narrowing at L4-5 and L5-S1. No fracture or gross subluxation is appreciated. Alignment is satisfactory. No intraspinal or paraspinal mass or hematoma appreciated. No gross mass or adenopathy identified, considering lack of IV contrast for this exam. IMPRESSION: 1. No evidence for acute intracranial hemorrhage or calvarial fracture. 2. No evidence for cervical or thoracic spine fracture or traumatic subluxation. 3. Multilevel degenerative changes of the cervical and lumbar spine. Reviewed, dictated and finalized at location A. IMPRESSION: 1. No evidence for acute intracranial hemorrhage or calvarial fracture. 2. No evidence for cervical or thoracic spine fracture or traumatic subluxatio n. 3. Multilevel degenerative changes of the cervical and lumbar spine. IMPRESSION: 1. No evidence for acute intracranial hemorrhage or calvarial fracture. 2. No evidence for cervical or thoracic spine fracture or traumatic subluxatio n. 3. Multilevel degenerative changes of the cervical and lumbar spine.
--- NOTE | ~2025-01-12 | XR_ITS ---
EXAM/ PROCEDURE: XR hip BI 2V w AP pelvis - 01/12/2025 12:30 CDT HISTORY: 84 years old Female with hip pain, X SATURDAY COMPARISON: None available TECHNIQUE: 5 view(s) FINDINGS/ IMPRESSION: There are no fractures or dislocations.Joint space narrowing, subchondral sclerosis, subchondral cyst formation and osteophyte formation, compatible with moderate to severe osteoarthritis. Reviewed, dictated and finalized at location A.
[2025-01-12 10:37] VITALS: BP 158/73; PULSE 71; RESP 16; TEMP 36.6; O2SAT 98
--- OUTSIDE RECORDS SUMMARY | 2025-01-12 10:39 | XMS_ITS | Referral Summary ---
Author Organization [facility] [address] Address [address] [place] [address] Care Team Providers Care Signals Collector/Analyst Name Role Phone Apollo Norwood MD Primary Care Provider [phone] Allergies No known active allergies Medications hyoscyamine [...] of Treatment [place] [address] MEDIC[place] [address] Care Teams Signals Collector/Analyst Relationship Specialty Start Date End Date Apollo Norwood MD [address] [place] [phone] PCP - General Internal Medicine 01/12/20
--- OUTSIDE RECORDS SUMMARY | 2025-01-12 10:39 | XMS_ITS | Clinical Summary ---
Author Organization [facility] [address] Address [address] [place] [address] Care Team Providers Care Jewel Inspector Name Role Phone Apollo Norwood MD Primary Care Provider [phone] Allergies No known active allergies Medications hyoscyamine [...] of Treatment Not on file [place] [address] [address] [facility] [place] [address] Care Teams Jewel Inspector Relationship Specialty Start Date End Date Apollo Norwood MD [address] [place] [id number] PCP - General Internal Medicine 01/12/20
--- OUTSIDE RECORDS SUMMARY | 2025-01-12 10:39 | XMS_ITS | Clinical Summary ---
Author Organization [facility] Address [address] [place] [address] Care Team Providers Care Profile Trimmer Name Role Phone Unavailable Primary Care Provider [...]
--- OUTSIDE RECORDS SUMMARY | 2025-01-12 11:41 | XMS_ITS | Clinical Summary ---
Author Organization [facility] [address] Address [address] [place] [address] Care Team Providers Care Lead Custodian Name Role Phone Apollo Norwood MD Primary Care Provider [phone] Allergies No known active allergies Medications hyoscyamine [...] of Treatment Not [place] [address] [address] [facility] [place] [address] Care Teams Lead Custodian Relationship Specialty Start Date End Date Apollo Norwood MD [address] [place] [id number] PCP - General Internal Medicine 01/12/20
--- OUTSIDE RECORDS SUMMARY | 2025-01-12 11:41 | XMS_ITS | Referral Summary ---
Author Organization [facility] [address] Address [address] [place] [address] Care Team Providers Care Set Up Operator Name Role Phone Apollo Norwood MD Primary Care Provider [phone] Allergies No known active allergies Medications hyoscyamine [...] of Treatment Not [place] [address] MEDICARE [facility] [place] [address] Care Teams Set Up Operator Relationship Specialty Start Date End Date Apollo Norwood MD [address] [place] [phone] PCP - General Internal Medicine 01/12/20
--- OUTSIDE RECORDS SUMMARY | 2025-01-12 11:41 | XMS_ITS | Clinical Summary ---
Author Organization [facility] Address [address] [place] [address] Care Team Providers Care Yard Worker Name Role Phone Unavailable Primary Care Provider [...]
[2025-01-12] MEDS: ACETAMINOPHEN 500 MG TABLET 1000 MG PO (12:46)
[2025-01-12] MEDS: LIDOCAINE 5% PATCH 1 PATCH TRANSDERM (14:02)
[2025-01-12 14:10] LABS: Add Urine Microscopic? YES; Appearance Urine Clear (Clear); Glucose Urine UA Negative (Negative); Leukocyte Esterase Ur Negative LEU/UL (Negative); Nitrate Urine Negative (Negative); Specific Grav Ur 1.010 (1.001-1.035)
--- NOTE | 2025-01-12 14:39 | ED.BACK ---
HPI - Back Pain/Injury General Chief Complaint: Back Pain/Injury Stated Complaint: Fell saturday Time Seen by Provider: 01/12/25 11:24 History of Present Illness HPI Narrative: Patient is an 84-year-old female presents to the ER after sustaining a fall on Saturday, 2 days ago. She reports she was out to eat with her and was trying to get into the vehicle when she lost her balance. Patient denies hitting her head. She reports she landed on her back and continues to experience lower back pain. Patient denies any loss of consciousness, recent fevers, urinary symptoms. She endorses a history of cancer, high blood pressure, and hyperlipidemia. Related Data Home Medications ?Medication ?Instructions ?Recorded ?Confirmed ?Last Taken ?Type omega 6-fbs-rpe-fish oil 300 1 cap PO DAILY 07/21/21 12/08/24 09/24/24 20:00 History mg-1,000 mg capsule (Fish Oil) 1 cap psyllium husk 3.4 gram/5.4 gram 2 tsp PO DAILY Constipation 09/25/21 12/08/24 09/24/24 08:00 History oral powder (Metamucil) 2 tsp ascorbate calcium (vitamin C) 500 500 mg PO DAILY 04/06/22 12/08/24 09/25/24 08:00 History mg tablet 500 mg lidocaine-prilocaine 2.5 %-2.5 % 1 applic topical ONCE PRN 11/23/22 12/08/24 09/17/24 14:00 History topical cream port/catheter care 1 applic ondansetron 8 mg disintegrating 8 mg PO Q8H PRN Nausea 11/23/22 12/08/24 09/22/24 00:00 History tablet 8 mg cholecalciferol (vitamin D3) 50 50 mcg PO DAILY 03/01/23 12/08/24 09/25/24 08:00 History mcg (2,000 unit) capsule 50 mcg carboxymethylcellulose 0.5 1 drp ophthalmic (eye) Q6H PRN Pain 10/17/23 12/08/24 09/24/24 20:00 History %-glycerin 0.9 % (PF) eye drops 2 drp (Refresh Relieva PF) carboxymethylcellulose 1 1 drp EACH EYE HS 10/17/23 12/08/24 09/24/24 20:00 History %-glycerin 0.9 % eye gel drops 2 drp (Refresh Optive) acetaminophen 650 mg 650 mg PO Q12H PRN pain 02/20/24 12/08/24 09/24/24 20:00 History tablet,extended release (Tylenol 8 650 mg Hour) aspirin 81 mg tablet,delayed 81 mg PO HS 08/06/24 12/08/24 09/24/24 20:00 History release (Adult Low Dose Aspirin) 81 mg loperamide 2 mg capsule 2 mg PO QID PRN loose stool 08/06/24 12/08/24 Unknown History (Anti-Diarrheal (loperamide)) ferrous sulfate 325 mg (65 mg 325 mg PO DAILY 09/10/24 12/08/24 09/25/24 08:00 History iron) tablet 325 mg amlodipine 5 mg tablet (Norvasc) 5 mg PO DAILY 09/25/24 12/10/24 09/25/24 08:00 History 5 mg furosemide 20 mg tablet 20 mg PO Q12H 12/08/24 12/24/24 Unknown History Allergies Allergy/AdvReac Type Severity Reaction Status Date / Time No Known Allergies Allergy Verified 01/07/25 09:36 Review of Systems Review of Systems: All systems reviewed & are unremarkable except as noted in HPI and below PMFSH Past Medical History Medical History Diastolic dysfunction Bleeding ulcer Pulmonary emboli (06/2021) Anxiety Anemia Overactive bladder Ovarian cancer Status post surgery and chemotherapy, currently on maintenance treatment with Avastin per Dr. Mosher Chronic GERD Osteoarthritis Hyperlipidemia Dyslipidemia Surgical History Surgical History History of appendectomy History of permanent cardiac pacemaker placement Biotronik pacemaker for heart block History of cataract surgery (2023) History of hysterectomy for cancer (04/2022) Status post robotic complete tumor debulking, total hysterectomy, bilateral salpingo oophorectomy, bilateral ureterolysis, and total omentectomy History of hemorrhoidectomy History of colon resection Family History Family History Father Cerebrovascular accident, Onset Age: 88 Mother Family history of arthritis, Onset Age: 85 Diverticulitis Social History Social History Social History: 11/03/24 patient declined SDOH Surrogate medical decision maker: Darwin Wells, spouse. Code status: Full code. Smoking status: Never smoker Second hand tobacco smoke exposure: No Alcohol intake: never Substance use: never Substance use type: does not use Do You Feel Safe in your Home?: Yes Lack of Transportation: No Lack of Food: Never True Current Housing: I Have Housing Concerned About Future Housing: No Difficulty Paying Gas/Electric Bills: No Difficulty Paying for Meds: No Currently Unemployed: No Education: High School Diploma/GED Difficulty w/ Childcare or Family Care: No Living arrangements: with family Additional living arrangements comments: Lives with spouse in [place]. Occupation/Education: retired Spiritual care concerns: No Exam Narrative: GENERAL: Well appearing, well-nourished, non-toxic, in no acute distress. HEAD: Normocephalic, atraumatic. NECK: Supple. No adenopathy, no masses. RESPIRATORY: Airway patent, respirations nonlabored. Clear to auscultation bilaterally, no rales, rhonchi, wheezing. CARDIOVASCULAR: Regular rate and rhythm without murmurs, rubs, or gallops. Peripheral pulses 2+ and equal bilaterally. ABDOMINAL: Soft, nontender, nondistended, no hepatosplenomegaly. Normoactive BS. MUSCULOSKELETAL: Moves all extremities. Strength/ROM intact without gross deformities. SKIN: Warm, dry, normal color. No rashes. NEURO: A&O X3. Speech clear. Cranial nerves II-XII intact. No ataxic movements. PSYCHIATRIC: Appropriate mood and affect. Normal interaction. Course Vital Signs Vital signs: Vital Signs Temperature 36.6 C 01/12/25 10:37 Pulse Rate 71 01/12/25 10:37 Respiratory Rate 16 01/12/25 10:37 Blood Pressure 158/73 H 01/12/25 10:37 Pulse Oximetry 98 01/12/25 10:37 Oxygen Delivery Room Air 01/12/25 10:37 Temperature 36.6 C 01/12/25 10:37 Pulse Rate 71 01/12/25 10:37 Respiratory Rate 16 01/12/25 10:37 Blood Pressure 158/73 H 01/12/25 10:37 Pulse Oximetry 98 01/12/25 10:37 Oxygen Delivery Room Air 01/12/25 10:37 MDM - Back Pain/Injury MDM Narrative Medical decision making narrative: Patient is an 84-year-old female presents to the ER after sustaining a fall on Saturday, 2 days ago. She reports she was out to eat with her and was trying to get into the vehicle when she lost her balance. Patient denies hitting her head. She reports she landed on her back and continues to experience lower back pain. Patient denies any loss of consciousness, recent fevers, urinary symptoms. She endorses a history of cancer, high blood pressure, and hyperlipidemia. Labs Ordered: None necessary Imaging Ordered: CT brain, CT cervical spine, CT lumbar spine, bilateral hip x-ray Medications Ordered: Tylenol p.o., lidocaine patch Results: Patient's CT scans indicate 1. No evidence for acute intracranial hemorrhage or calvarial fracture. 2. No evidence for cervical or thoracic spine fracture or traumatic subluxation. 3. Multilevel degenerative changes of the cervical and lumbar spine. Her bilateral hip x-ray indicates There are no fractures or dislocations.Joint space narrowing, subchondral sclerosis, subchondral cyst formation and osteophyte formation, compatible with moderate to severe osteoarthritis. Diagnosis: Lumbar back strain Patient Education/Shared MDM: Results of lab work and imaging shared with patient. She endorses improvement of symptoms following medication administration (lidocaine patch). Patient strongly advised to maintain hydration status upon discharge and follow-up with her PCP as soon as possible. She will be discharged home with a prescription for lidocaine patches. Strict return precautions provided. Patient verbalized understanding and is in agreement with plan. Vital signs stable at time of discharge. All questions answered. Differential Diagnosis Differential diagnosis: Likely lumbar radiculopathy, sciatica, strain of lumbar region, pyelonephritis and discitis Lab Data Attestation: I reviewed the patient's lab results. Labs: Lab Results 01/12/25 Range/Units 13:54 Urine Color Yellow (Yellow) Urine Appearance Clear (Clear) Urine pH 5.0 (5.0-9.0) Ur Specific [place] 1.010 (1.001-1.035) Urine Protein 1+ H (Negative) mg/dL Urine Glucose (UA) Negative (Negative) mg/dL Urine Ketones Negative (Negative) mg/dL Ur Blood (Man) Negative (Negative) Urine Nitrate Negative (Negative) Urine Bilirubin Negative (Negative) Urine Urobilinogen 0.2 (<2.0) mg/dL Leukocyte Esterase Rfl Negative (Negative) JENNY/UL Urine RBC 0-2 (0-2) /hpf Urine WBC 0-5 (0-3) /hpf Ur Squamous Epith Cells None seen (Few) /hpf Urine Bacteria None seen /hpf Urine Casts 3-5 Imaging Data Attestation: I personally reviewed and interpreted this imaging study as follows: Radiologist's impression: Impressions Cervical Spine CT 01/12/25 12:35 IMPRESSION: 1. No evidence for acute intracranial hemorrhage or calvarial fracture. 2. No evidence for cervical or thoracic spine fracture or traumatic subluxation. 3. Multilevel degenerative changes of the cervical and lumbar spine. Head CT 01/12/25 12:35 IMPRESSION: 1. No evidence for acute intracranial hemorrhage or calvarial fracture. 2. No evidence for cervical or thoracic spine fracture or traumatic subluxation. 3. Multilevel degenerative changes of the cervical and lumbar spine. Lumbar Spine CT 01/12/25 12:35 IMPRESSION: 1. No evidence for acute intracranial hemorrhage or calvarial fracture. 2. No evidence for cervical or thoracic spine fracture or traumatic subluxation. 3. Multilevel degenerative changes of the cervical and lumbar spine. Discharge Plan Discharge Clinical Impression: Strain of lumbar region, Fall Patient Disposition: Home Condition: Stable Instructions: Antibiotic Form, Acute Low Back Pain (ED), Lower Back Exercises (ED) Additional Instructions: Please return to the ER with any worsening symptoms. Follow-up with primary care provider as soon as possible. Take all medications as prescribed, including regularly scheduled medications. You may use lidocaine patches and Tylenol as needed for pain control. Patient Language: [place] Prescriptions: New lidocaine 5 % adhesive patch,medicated 2 patch topical DAILY Qty: 30 0RF Rx Instructions: leave on most painful area for up to 12 hrs No Action ondansetron 8 mg Tablet,Disintegrating 8 mg PO Q8H PRN (Reason: Nausea) Patient Comments: Only taken 3-4 times in the last 4 years. lidocaine-prilocaine 2.5-2.5 % Cream 1 applic TOPICAL ONCE PRN (Reason: port/catheter care) cholecalciferol (vitamin D3) 50 mcg (2,000 unit) Capsule 50 mcg PO DAILY Refresh Optive 1-0.9 % Drops,Gel 1 drp EACH EYE HS Refresh Relieva PF 0.5-0.9 % Drops 1 drp OPHTHALMIC (EYE) Q6H PRN (Reason: Pain) acetaminophen [Tylenol 8 Hour] 650 mg Tablet Extended Release 650 mg PO Q12H PRN (Reason: pain) Patient Comments: .. aspirin [Adult Low Dose Aspirin] 81 mg tablet,delayed release (DR/EC) 81 mg PO HS loperamide [Anti-Diarrheal (loperamide)] 2 mg capsule 2 mg PO QID PRN (Reason: loose stool) furosemide 20 mg tablet 20 mg PO Q12H Patient Comments: . carvedilol 12.5 mg tablet 12.5 mg PO Q12H Qty: 60 5RF Rx Instructions: must administer with a meal/food alprazolam 0.25 mg tablet 0.25 mg PO TID PRN (Reason: anxiety) Qty: 90 0RF Patient Comments: Couple of months omega 7-htj-fok-fish oil [Fish Oil] 300-1,000 mg Capsule 1 cap PO DAILY Rx Instructions: 1000 mg two capsules daily Metamucil 3.4 gram/5.4 gram Powder 2 tsp PO DAILY amlodipine [Norvasc] 5 mg Tablet 5 mg PO DAILY Patient Comments: . cyanocobalamin (vitamin B-12) 1,000 mcg capsule 1,000 mcg PO DAILY Qty: 30 1RF ferrous sulfate 325 mg (65 mg iron) tablet 325 mg PO DAILY ascorbate calcium (vitamin C) 500 mg tablet 500 mg PO DAILY Patient Comments: . oxybutynin chloride 10 mg tablet extended release 24hr 10 mg PO DAILY Qty: 90 1RF pravastatin 40 mg tablet 40 mg PO QHS Qty: 90 1RF pantoprazole 40 mg tablet,delayed release (DR/EC) 40 mg PO QHS Qty: 90 1RF hydralazine 50 mg tablet See Rx Instructions .ROUTE .COMPLEX Qty: 90 5RF Dose Instruction: TAKE 1 TABLET BY MOUTH THREE TIMES DAILY Rx Instructions: TAKE 1 TABLET BY MOUTH THREE TIMES DAILY Follow-up/Referrals: Gina Salvador PA-C [Primary Care Provider] -
[2025-01-12 15:05] VITALS: BP 146/85; PULSE 75; RESP 16; TEMP 36.6; O2SAT 97
== END 2025-01-12 15:22 | disposition home or self-care (01) ==
PROVIDERS: Emergency Provider Registered Nurse; PCP Physician Assistant Medical
DX: S39.012A Strain of muscle, fascia and tendon of lower back, initial encounter (principal); I51.89 Other ill-defined heart diseases; E78.5 Hyperlipidemia, unspecified; N32.81 Overactive bladder; K21.9 Gastro-esophageal reflux disease without esophagitis; M19.90 Unspecified osteoarthritis, unspecified site; F41.9 Anxiety disorder, unspecified; Z95.0 Presence of cardiac pacemaker; Z92.21 Personal history of antineoplastic chemotherapy; Z86.711 Personal history of pulmonary embolism; Z85.43 Personal history of malignant neoplasm of ovary; Z90.710 Acquired absence of both cervix and uterus; Z90.79 Acquired absence of other genital organ(s); Z90.722 Acquired absence of ovaries, bilateral; Z90.49 Acquired absence of other specified parts of digestive tract; M47.812 Spondylosis without myelopathy or radiculopathy, cervical region; M47.816 Spondylosis without myelopathy or radiculopathy, lumbar region; W18.39XA Other fall on same level, initial encounter
CPT/HCPCS: 70450; 72125; 72131; 73521; 81001; 99284; A9270

== ENCOUNTER 2025-01-14 08:23 | Outpatient (CLI) | payer MEDICARE, SELFPAY ==
--- OUTSIDE RECORDS SUMMARY | 2025-01-14 08:30 | XMS_ITS | Encounter Summary ---
Author Organization [facility] [employer] [facility] Address [address] [place] [address] Care Team Providers Care Filenet Developer Name Role Phone Unavailable Primary Care Provider Unavailabl e Encounter Details Date Type Department Care Team (Late Contact Info) Description 01/11/[address] [facility] [address] [place] [id number] Shiv Mosher MD [facility] [employer] [address] [place] [id number] Social History Tobacco Use Types Packs/Day [...] Department Care Team (Late Contact Info) Description 01/21/2025 9:15 AM CDT Office Visit [facility] [address] [place] [id number] Shiv [facility]her [facility] [address] [place] [address] documented as of this encounter Procedures Procedure Name Priority Date/Time Associated Diagnosis Comments BASIC METABOLIC PANEL Routine 01/07/2025 4:45 PM CDT COMPREHENSIVE METABOLIC PANEL Routine 01/07/2025 4:44 PM CDT documented in this encounter Results * BASIC METABOLIC PANEL (01/07/2025 4:45 PM CDT) Blood us Shiv Mosher MD CHEMISTRY ORDERABLES Final Resu lt * COMPREHENSIVE METABOLIC PANEL (01/07/2025 4:44 PM CDT) Blood us Shiv Mosher MD CHEMISTRY ORDERABLES Final Resu lt documented in this encounter Visit Diagnoses Not on filedocumented in this encounter
--- OUTSIDE RECORDS SUMMARY | 2025-01-14 08:30 | XMS_ITS | Clinical Summary ---
Author Organization [facility] [address] Address [address] [place] [address] Care Team Providers Care Cooky Packer Name Role Phone Apollo Norwood MD Primary Care Provider [phone] Allergies No known active allergies Medications hyoscyamine [...] of Treatment Not on [place] [address] [address] [facility] [place] [address] Care Teams Cooky Packer Relationship Specialty Start Date End Date Apollo Norwood MD [address] [place] [id number] PCP - General Internal Medicine 01/12/20
--- OUTSIDE RECORDS SUMMARY | 2025-01-14 08:30 | XMS_ITS | Referral Summary ---
Author Organization [facility] [place] [address] Address [address] [place] [address] Care Team Providers Care Shower Screen Installer Name Role Phone Apollo Norwood MD Primary [...] of Treatment Not on [place] [address] MEDICARE [facility] [place] [address] Care Teams Shower Screen Installer Relationship Specialty Start Date End Date Apollo Norwood MD [address] [place] [phone] PCP - General Internal Medicine 01/12/20
--- OUTSIDE RECORDS SUMMARY | 2025-01-14 08:30 | XMS_ITS | Clinical Summary ---
Author Organization [facility] Address [address] [place] [address] Phone Care Team Providers Care Tree Trimmer Helper Name Role Phone Unavailable Primary Care Provider Unavailabl e Allergies No known active allergies Medications pravastatin (PRAVACHOL) 40 mg tablet Take 40 mg by mouth daily with supper. Active losartan (COZAAR) 50 mg tablet Take 100 mg by mouth daily. Active Fish Oil-[place]-3 Fatty Acids 300-500 mg Capsule Take by [...] daily. 30 Tablet 1 2 10:07 AM FEED BLENDER 05/12/20 22 Active Additional Information Patient taking [...] mg tablet Take 1 tablet by mouth BID. 60 Tablet 01/08/20 25 Active furosemide (LASIX) 20 mg tablet Take 1 tablet by mouth BID for 3 days, then take 1 tablet by mouth daily. 33 Tablet 11/14/19 25 025 Discontin ued(Reord er) Active Problems [...] Encounters Date Type Department Care Team Description 01/11/2025 Orders Only [facility] ([facility] Oncology and Hematology - [address] [place] [address] Shiv Mosher MD 01/07/2025 Refill [facility] Oncology and Hematology - [address] [place] [address] Shiv Mosher MD 01/04/2025 Orders Only [facility] Oncology and Hematology - [address] [place] [address] Shiv Mosher MD Malignant neoplasm of ovary, unspecified laterality (CMS/HCC) 12/24/2024 8:45 AM CDT Office Visit [facility] ([facility] Oncology and Hematology - [address] [place] [address] Shiv Mosher MD Malignant neoplasm of ovary, unspecified laterality (CMS/HCC) (Primary Dx) 12/21/2024 Orders Only [facility] ([facility] Oncology and Hematology - [address] [facility] [place] [place] [address] Shiv Mosher MD Malignant neoplasm of ovary, unspecified laterality (CMS/HCC) 12/17/2024 Orders Only [facility] Oncology and Hematology - [address] [place] [address] Shiv Mosher MD 12/14/2024 Orders Only [facility] Oncology and Hematology - [address] [place] [id number] Shiv Mosher MD Malignant neoplasm of ovary, unspecified laterality (CMS/HCC) 12/08/2024 Orders Only [facility] Oncology and Hematology - [address] [place] [address] Shiv Mosher MD 12/07/2024 Orders Only [facility] Oncology and Hematology - [address] [place] [address] Shiv Mosher MD Chronic anemia (Primary Dx) 12/07/2024 Orders Only [facility] Oncology and Hematology - [address] Shiv Mosher MD Malignant neoplasm of ovary, unspecified laterality (CMS/HCC) 11/30/2024 Orders Only [facility] Oncology and Hematology - [address] [place] [address] Shiv Mosher MD Malignant neoplasm of ovary, unspecified laterality (CMS/HCC) 11/27/2024 Orders Only [facility] Oncology and Hematology - [address] [place] [address] Shiv Mosher MD 11/26/2024 8:30 AM CDT Office Visit [facility] Oncology and Hematology - [address] [place] [phone] Shiv Mosher MD Malignant neoplasm of ovary, unspecified laterality (CMS/HCC) (Primary Dx); Anemia in stage 4 chronic kidney disease (CMS/HCC) 11/23/2024 Orders Only [facility] Oncology and Hematology - [address] [place] [phone] Shiv Mosher MD Malignant neoplasm of ovary, unspecified laterality (CMS/HCC) 11/19/2024 Orders Only [facility] Oncology and Hematology - [address] [place] [address] Shiv Mosher MD 11/18/2024 Abstract [facility] Oncology and Hematology - [address] Shiv Mosher MD 11/16/2024 Orders Only [facility] Oncology and Hematology - [address] [place] [address] Shiv Mosher MD Malignant neoplasm of ovary, unspecified laterality (CMS/HCC) 11/13/2024 Refill [facility] Oncology and Hematology - [address] Shiv Mosher MD 11/09/2024 Orders Only [facility] Oncology and Hematology - [address] Shiv Mosher MD Malignant neoplasm of ovary, unspecified laterality (CMS/HCC) 11/05/2024 Telephone [facility] Oncology and Hematology - [address] Shiv Mosher MD Chemotherapy Concerns 11/03/2024 Orders Only [facility] Oncology and Hematology - [address] [place] [phone] Shiv Mosher MD 11/02/2024 Orders Only [facility] Oncology and Hematology - [address] [place] [address] Shiv Mosher MD Malignant neoplasm of ovary, unspecified laterality (CMS/HCC) 10/30/2024 Orders Only [facility] Oncology and Hematology - [address] [place] [phone] Shiv Mosher MD 10/29/2024 8:30 AM CDT Office Visit [facility] Oncology and Hematology - [address] [place] [address] Shiv Mosher MD Malignant neoplasm of ovary, unspecified laterality (CMS/HCC) (Primary Dx) 10/28/2024 Orders Only [facility] Oncology and Hematology - [address] [place] [address] Shiv Mosher MD Malignant neoplasm of ovary, unspecified laterality (CMS/HCC) (Primary Dx) 10/26/2024 Orders Only [facility] Oncology and Hematology - [address] [place] [address] Shiv Mosher MD Malignant neoplasm of ovary, unspecified laterality (CMS/HCC) 10/19/2024 Orders Only [facility] Oncology and Hematology - [address] [place] [address] Shiv Mosher MD Malignant neoplasm of ovary, unspecified laterality (CMS/HCC) 10/16/2024 Orders Only [facility] Oncology and Hematology - [address] [place] [address] Shiv Mosher MD from Last 3 Months Immunizations Immunization Administration Dates Next Due (Super [employer]ite)(12 YR UP) COVID-19 VACCINE - EMERGENCY USE AUTHORIZATION, MRNA, [id number](PF) 30 MCG/0.3 ML IM SUSP 04/17/2021 Influenza [...] Sign Reading Time Taken Comments Blood Pressure 115/65 12/24/2024 8:37 AM CDT Pulse 67 12/24/2024 8:37 AM CDT Temperature 36.2 C (97.2 F) 12/24/2024 8:37 AM CDT Respiratory Rate 15 12/24/2024 8:37 AM CDT Oxygen Saturation 97% 12/24/2024 8:37 AM CDT Inhaled Oxygen Concentration - - Weight 55.8 kg (123 lb) 12/24/2024 8:37 AM CDT Height 157.5 cm (5' 2) 05/31/2022 3:03 PM FEED BLENDER Body Mass Index 22.5 05/31/2022 3:03 PM FEED BLENDER Plan of Treatment Upcoming Encounters Date Type Department Care Team (Late st Contact Info) Description 01/21/2025 9:15 AM CDT Office Visit [facility] Oncology and Hematology - [address] [facility] [address] [place] [address] Shiv Mosher MD [address] [facility] [address] [place] [address] Health Maintenance Due Date Last Done Comments DTAP/TDAP/TD VACCINES (1 - Tdap) 1959 PNEUMOCOCCAL VACCINE 50+ YEARS (1 of 2 - PCV) 08/07/18 61 ZOSTER VACCINE (1 of 2) 1960 OSTEOPOROSIS SCREENING 2006 RSV VACCINE (60+ or ) (1 - 1-dose 75+ series) 2016 COVID-19 Vaccine (2 - Pfizer risk series) 05/08/2021 04/17/2021 INFLUENZA VACCINE (#1) 2025 04/14/2021 COLORECTAL SCREENING Discontinued 07/25/2021 Colorectal Cancer Screening Discontinued FIT-DNA Q 3 years Discontinued FIT/FOBT Q 1 year Discontinued Flex Sig/CT Colonography Q 5 years Discontinued Medical Devices Implanted Type Area Egg Producer Device Identifier Shelf Expiration Date Model / Serial / Lot Port Powerport Clearvue 8fr Mri [id number] - [id number] Implanted:Qty : 1 on 12/19/2021 by June Hunter MD at [facility] Port Right: Chest [employer] [id number] 12/21/2022 [id number] / / [id number] Pacemaker Procedures Procedure Name Priority Date/Time Associated Diagnosis Comments BASIC METABOLIC PANEL Routine 01/07/2025 4:45 PM CDT COMPREHENSIVE METABOLIC PANEL Routine 01/07/2025 4:44 PM CDT BASIC METABOLIC PANEL Routine 12/17/2024 3:38 PM CDT COMPREHENSIVE METABOLIC PANEL Routine 12/17/2024 3:23 PM CDT CBC WITH DIFFERENTIAL Routine 12/10/2024 2:39 PM CDT VITAMIN B12 LEVEL Routine 12/07/2024 5:3 7 PM CDT IRON LEVEL Routine 12/07/2024 5:11 PM CDT BASIC METABOLIC PANEL Routine 11/26/2024 1:20 PM CDT COMPREHENSIVE METABOLIC PANEL Routine 11/26/2024 1:12 PM CDT CHG CA 125 Routine 11/26/2024 11:23 AM CDT COMPREHENSIVE METABOLIC PANEL Routine 11/19/2024 4:05 PM CDT BASIC METABOLIC PANEL Routine 11/12/2024 11:22 AM CDT COMPREHENSIVE METABOLIC PANEL Routine 11/12/2024 11:19 AM CDT CHG CA 125 Routine 10/29/2024 3:25 PM CDT BASIC METABOLIC PANEL Routine 10/29/2024 2:34 PM CDT COMPREHENSIVE METABOLIC PANEL Routine 10/29/2024 2:18 PM CDT CANCER ANTIGEN 125 Routine 10/15/2024 12 :53 PM CDT CBC MIXED CELL DIFFERENTIAL Routine 10/15/2024 11:32 AM CDT COMPREHENSIVE METABOLIC PANEL Routine 10/15/2024 8:36 AM CDT from Last 3 Months Results * BASIC METABOLIC PANEL (01/07/2025 4:45 PM CDT) Only the most recent of5 resultswithin the time period is included. Blood us Shiv Mosher MD CHEMISTRY ORDERABLES Final Resu lt * COMPREHENSIVE METABOLIC PANEL (01/07/2025 4:44 PM CDT) Only the most recent of7 resultswithin the time period is included. Blood us Shiv Mosher MD CHEMISTRY ORDERABLES Final Resu lt * CBC WITH DIFFERENTIAL (12/10/2024 2:39 PM CDT) Blood Result [facility] Shiv Mosher MD HEMATOLOGY ORDERABLES Final Res ult * VITAMIN B12 LEVEL (12/07/2024 5:37 PM CDT) Blood Result [facility] Shiv Mosher MD CHEMISTRY ORDERABLES Final Resu lt * IRON LEVEL (12/07/2024 5:11 PM CDT) Blood Result [facility] us Shiv Mosher MD CHEMISTRY ORDERABLES Final Resu lt * CHG CA 125 (11/26/2024 11:23 AM CDT) Only the most recent of2 resultswithin the time period is included. Result [facility] Shiv Mosher MD CHG - LABORATORY Final Result * CANCER ANTIGEN 125 (10/15/2024 12:53 PM CDT) Blood Result [facility] Shiv Mosher MD CHEMISTRY ORDERABLES Final Resu lt * CBC MIXED CELL DIFFERENTIAL (10/15/2024 11:32 AM CDT) Blood Result [facility] us Shiv Mosher MD HEMATOLOGY ORDERABLES Final Res ult from Last 3 Months Insurance [place], [place] [id number] [place] [address] SUPP MEDICARE PART A AND B RX PRIME THERAPEUT[employer] Medicare Part D MEDICARE PART A AND B BCBS SUPP Advance Directives For more information, please contact: [phone] Documents on File Type Date Recorded 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
--- OUTSIDE RECORDS SUMMARY | 2025-01-14 08:30 | XMS_ITS | Clinical Summary ---
Author Organization [facility] Address [address] [place] [address] Care Team Providers Care Executive Personal Assistant Name Role Phone Unavailable Primary Care [...]
[2025-01-14 10:24] LABS: Albumin Level 3.3 g/dL (3.5-5.1); Anion Gap 8 mmol/L (4-12); Blood Urea Nitrogen 45 mg/dL (7-17); Calcium 8.7 mg/dL (8.4-10.2); Carbon Dioxide 20 mmol/L (22-30); Chloride 110 mmol/L (98-107); Estimated Glomerular Filt Rate 44; Glucose 97 mg/dL (65-110); Potassium 3.6 mmol/L (3.4-5.0); Sodium 138 mmol/L (137-145)
[2025-01-14 10:57] LABS: Total Protein Urine Random 21 mg/dL; Ur Ttl Prot Creatinine Ratio 0.76 mg/mg (0-0.20)
[2025-01-15 15:09] LABS: ANA by IFA Rfx Titer/Pattern Positive (.)
[2025-01-15 16:08] LABS: Albumin 2.9 g/dL (2.9-4.4); Alpha-1-Globulin 0.3 g/dL (0.0-0.4); Alpha-2-Globulin 0.8 g/dL (0.4-1.0); Gamma Globulin 0.8 g/dL (0.4-1.8)
[2025-01-18 15:09] LABS: Albumin, U 73.2 % (.); Alpha-1-Globulin, U 0.9 % (.); Alpha-2-Globulin, U 4.6 % (.); Beta Globulin, U 8.6 % (.); Gamma Globulin, U 12.7 % (.)
== END 2025-01-14 08:24 | disposition home or self-care (01) ==
LOC: ANHLAB 08:24
PROVIDERS: PCP Physician Assistant Medical; Visit Provider Internal Medicine Nephrology
DX: I12.9 Hypertensive chronic kidney disease with stage 1 through stage 4 chronic kidney disease, or unspecified chronic kidney disease (principal); N18.4 Chronic kidney disease, stage 4 (severe)
CPT/HCPCS: 36415; 80069; 82570; 84156; 84165; 84166; 86037; 86038; 86160

== ENCOUNTER 2025-02-10 12:25 | Outpatient (CLI) | payer MEDICARE, SELFPAY ==
--- NOTE | ~2025-02-10 | CT_ITS ---
Clinical Indication: Ovarian malignancy CT Scan of the Chest, Abdomen, and Pelvis with Contrast: Technique: Contiguous sections were acquired throughout the chest, abdomen, and pelvis after intravenous administration of 100 cc of Omnipaque 350. Dose reduction technique was used on this scan by utilizing automated exposure control and iterative reconstruction technique. The dose-length product (DLP) was 323.13 mGy-cm. Comparison: 09/29/2024 Findings: There is no evidence of any significant mediastinal, hilar or axillary lymphadenopathy. Calcified left hilar lymph node noted. The mediastinal soft tissues and vascular structures otherwise appear normal. No pericardial effusion. Small left pleural effusion present, significantly decreased from prior exam. No right pleural effusion.. Right middle lobe scarring present. Calcified left lower lobe granuloma present. There are 2 subcentimeter very subtle hypodense hepatic lesions (axial images 103, 107), which approximates the location of the hypermetabolic lesions seen on prior PET/CT. The spleen, pancreas, gallbladder, adrenals and kidneys are within normal limits. There are atherosclerotic calcifications of the aorta. No lymphadenopathy. No bowel obstruction or bowel wall thickening. Previously noted peritoneal implants are markedly decreased in size from prior exam.. Urinary bladder is unremarkable. No pelvic mass seen. Status post hysterectomy. Trace pelvic ascites noted. Severe L1 compression fracture present. Impression: Findings compatible with significant interval response to therapy. Hepatic lesions and scattered peritoneal implants are all markedly decreased in size. Trace pelvic ascites. Severe L1 compression fracture. Small left pleural effusion, decreased from prior exam. Reviewed, dictated and finalized at [facility]. Impression: Findings compatible with significant interval response to therapy. Hepatic lesi ons and scattered peritoneal implants are all markedly decreased in size. Trace pelvic ascites. Severe L1 compression fracture. Small left pleural effusion, decreased from prior exam.
--- OUTSIDE RECORDS SUMMARY | 2025-02-10 12:30 | XMS_ITS | Clinical Summary ---
Author Organization [facility] Address [address] [place] [address] Phone Care Team Providers Care Superintendent Tests Name Role Phone Unavailable Primary Care Provider Unavailabl e Allergies No known active allergies Medications pravastatin (PRAVACHOL) 40 mg tablet Take 40 mg by mouth daily with supper. Active losartan (COZAAR) 50 mg tablet Take 100 mg by mouth daily. Active Fish Oil-[place]-3 Fatty Acids 300-500 mg Capsule Take by [...] with breakfast. 30 Tablet 3 2 Active amLODIPine (NORVASC) 10 mg tablet Starting 05/12. Take 1 Tablet (10 mg) by mouth daily. 30 Tablet 1 05/12/2022 10:07 AM ADHESIVE SPRAYER 2 Active Additional Information Patient taking differently: [...] the chemo 30 Tablet 4 3 Active BENZONATATE ORAL Take 100 mg by [...] administration instructions. 30 Gram 1 4 Active celecoxib (CeleBREX) 200 mg capsule Take 1 Capsule by mouth daily. 4 Active hydroCHLOROthi azide 25 mg tablet Take 1 Tablet by mouth daily. 5 Active hydrALAZINE (APRESOLINE) 50 mg tablet Take 1 Tablet by mouth 3 times daily. 5 Active carvediloL (COREG) 12.5 mg tablet Take 12.5 mg by mouth every 12 hours. 5 Active cefdinir (OMNICEF) 300 mg capsule Take 1 Capsule by mouth 2 times daily. 5 Active magnesium OXIDE (MAG-OX) 200 mg Tablet Take 200 mg by mouth 2 times daily. 2 Active furosemide (LASIX) 20 mg tablet Take 1 tablet by mouth BID. 60 Tablet 5 Active lidocaine (LIDODERM) 5 % Adhesive Patch, Medicated APPLY 2 PATCHES TOPICALLY TO THE SKIN DAILY. LEAVE ON MOST PAINFUL AREA FOR UP TO 12 HOURS 5 Active Active Problems Problem Noted Date [...] Encounters Date Type Department Care Team Description 02/08/2025 Orders Only [facility] Oncology and Hematology - [address] Shiv Mosher MD 02/04/2025 Orders Only [facility] Oncology and Hematology - [address] [place] [address] Shiv Mosher MD 02/02/2025 Orders Only [facility] Oncology and Hematology - [address] [place] [address] Shiv Mosher MD 02/01/2025 Orders Only [facility] Oncology and Hematology - [address] [place] [address] Shiv Mosher MD Malignant neoplasm of ovary, unspecified laterality (CMS/HCC) 01/26/2025 Telephone [facility] Oncology and Hematology - [address] [place] [address] Shiv Mosher MD Medication Review 01/22/2025 Orders Only [facility] Oncology and Hematology - [address] [place] [address] Shiv Mosher MD 01/21/2025 9:15 AM CDT Office Visit [facility] Oncology and Hematology - [address] [place] [address] Shiv Mosher MD Malignant neoplasm of ovary, unspecified laterality (CMS/HCC) (Primary Dx) 01/21/2025 Orders Only [facility] Oncology and Hematology - [address] [place] [address] Shiv Mosher MD 01/18/2025 Orders Only [facility] Oncology and Hematology - [place] [address] [place] [address] Shiv Mosher MD Malignant neoplasm of ovary, unspecified laterality (CMS/HCC) 01/14/2025 Orders Only [facility] Oncology and Hematology - [address] [place] [address] Shiv Mosher MD 01/11/2025 Orders Only [facility] Oncology and Hematology - [address] [place] [address] Shiv Mosher MD 01/07/2025 Refill [facility] Oncology and Hematology - [address] [place] [address] Shiv Mosher MD 01/04/2025 Orders Only [facility] Oncology and Hematology - [address] [place] [address] Shiv Mosher MD Malignant neoplasm of ovary, unspecified laterality (CMS/HCC) 12/24/2024 8:45 AM CDT Office Visit [facility] Oncology and Hematology - [address] [place] [address] Shiv Mosher MD Malignant neoplasm of ovary, unspecified laterality (CMS/HCC) (Primary Dx) 12/21/2024 Orders Only [facility] Oncology and Hematology - [address] [place] [address] Shiv Mosher MD Malignant neoplasm of ovary, unspecified laterality (CMS/HCC) 12/17/2024 Orders Only [facility] Oncology and Hematology - [address] Shiv Mosher MD 12/14/2024 Orders Only [facility] Oncology and Hematology - [address] [place] [address] Shiv Mosher MD Malignant neoplasm of ovary, unspecified laterality (CMS/HCC) 12/08/2024 Orders Only [facility] Oncology and Hematology - [address] [place] [address] Shiv Mosher MD 12/07/2024 Orders Only [facility] Oncology and Hematology - [address] Shiv Mosher MD Chronic anemia (Primary Dx) 12/07/2024 Orders Only [facility] Oncology and Hematology - [address] [place] [address] Shiv Mosher MD Malignant neoplasm of ovary, unspecified laterality (CMS/HCC) 11/30/2024 Orders Only [facility] Oncology and Hematology - [address] Shiv Mosher MD Malignant neoplasm of ovary, unspecified laterality (CMS/HCC) 11/27/2024 Orders Only [facility] Oncology and Hematology - [address] Shiv Mosher MD 11/26/2024 8:30 AM CDT Office Visit [facility] Oncology and Hematology - [address] Shiv Mosher MD Malignant neoplasm of ovary, unspecified laterality (CMS/HCC) (Primary Dx); Anemia in stage 4 chronic kidney disease (CMS/HCC) 11/23/2024 Orders Only [facility] Oncology and Hematology - [address] [place] [phone] Shiv Mosher MD Malignant neoplasm of ovary, unspecified laterality (CMS/HCC) 11/19/2024 Orders Only [facility] Oncology and Hematology - [address] [place] [phone] hSiv Mosher MD 11/18/2024 Abstract [facility] Oncology and Hematology - [address] [place] [id number] Shiv Mosher MD 11/16/2024 Orders Only [facility] Oncology and Hematology - [address] [place] [phone] Shiv Mosher MD Malignant neoplasm of ovary, unspecified laterality ([facility]/HCC) 11/13/2024 Refill [facility] Oncology and Hematology - [address] [place] [phone] Shiv Mosher MD from Last 3 Months Immunizations Immunization Administration Dates Next Due (Ult[employer])(12 YR UP) COVID-19 VACCINE - EMERGENCY USE AUTHORIZATION, MRNA, [id number](PF) 30 MCG/0.3 ML IM SUSP 04/17/2021 Influenza [...] Sign Reading Time Taken Comments Blood Pressure 116/60 01/21/2025 8:46 AM CDT Pulse 81 01/21/2025 8:46 AM CDT Temperature 36.3 C (97.3 F) 01/21/2025 8:46 AM CDT Respiratory Rate 15 01/21/2025 8:46 AM CDT Oxygen Saturation 95% 01/21/2025 8:46 AM CDT Inhaled Oxygen Concentration - - Weight 50.8 kg (112 lb) 01/21/2025 8:46 AM CDT Height 157.5 cm (5' 2) 05/31/2022 3:03 PM ADHESIVE SPRAYER Body Mass Index 20.49 05/31/2022 3:03 PM ADHESIVE SPRAYER Plan of Treatment Upcoming Encounters Date Type Department Care Team (Late st Contact Info) Description 02/18/2025 9:00 AM CDT Office Visit [facility] Oncology and Hematology - [address] [facility] [address] [place] [address] Shiv Mosher MD [address] [facility] [address] [place] [address] Health Maintenance Due Date Last [...] years Discontinued Medical Devices Implanted Type Area Office Rental Clerk Device Identifier Shelf Expiration Date Model / Serial / Lot Port Powerport Clearvue 8fr Mri [id number] - [id number] Implanted:Qty : 1 on 12/19/2021 by June Hunter MD at [facility] [place] Right: Chest [employer] [id number] 12/21/2022 [id number] / / [id number] Pacemaker Procedures Procedure Name Priority Date/Time Associated Diagnosis Comments BASIC METABOLIC PANEL Routine 02/04/2025 12:49 PM CDT CBC WITH AUTODIFFERENTIAL Routine 2024 12:46 PM CDT COMPREHENSIVE METABOLIC PANEL Routine 02/04/2025 11:16 AM CDT CBC WITH AUTODIFFERENTIAL Routine 2024 10:32 AM CDT BASIC METABOLIC PANEL Routine 01/21/2025 11:50 AM CDT COMPREHENSIVE METABOLIC PANEL Routine 01/21/2025 11:49 AM CDT CHG CA 125 Routine 01/21/2025 10:34 AM CDT COMPREHENSIVE METABOLIC PANEL Routine 01/14/2025 2:25 PM CDT BASIC METABOLIC PANEL Routine 01/14/2025 1:32 PM CDT BASIC METABOLIC PANEL Routine 01/07/2025 4:45 PM [...] METABOLIC PANEL Routine 11/12/2024 11:19 AM CDT from Last 3 Months Results * BASIC METABOLIC PANEL (02/04/2025 12:49 PM CDT) Only the most recent of7 resultswithin the time period is included. Blood us Shiv Mosher MD CHEMISTRY ORDERABLES Final Resu lt * CBC WITH AUTODIFFERENTIAL (02/04/2025 12:46 PM CDT) Only the most recent of2 resultswithin the time period is included. Blood us Shiv Mosher MD HEMATOLOGY ORDERABLES Final Res ult * COMPREHENSIVE METABOLIC PANEL (02/04/2025 11:16 AM CDT) Only the most recent of8 resultswithin the time period is included. Blood Result [facility] Shiv Mosher MD CHEMISTRY ORDERABLES Final Resu lt * CHG CA 125 (01/21/2025 10:34 AM CDT) Only the most recent of2 resultswithin the time period is included. Result [facility] us Shiv Mosher MD CHG - LABORATORY Final Result * CBC WITH DIFFERENTIAL (12/10/2024 2:39 PM CDT) Blood Result [facility] us Shiv Mosher MD HEMATOLOGY ORDERABLES Final Res ult * VITAMIN B12 LEVEL (12/07/2024 5:37 PM CDT) Blood Result [facility] us Shiv Mosher MD CHEMISTRY ORDERABLES Final Resu lt * IRON LEVEL (12/07/2024 5:11 PM CDT) Blood Result [facility] us Shiv Mosher MD CHEMISTRY ORDERABLES Final Resu lt from Last [address] [place] [place] [id number] [place] [address] SUPP MEDICARE PART A AND B RX [employer]IME THERAPE[employer] Medicare Part D MEDICARE PART A AND B BCBS SUPP Advance Directives For more information, please contact: [phone] Documents on File Type Date Recorded 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
--- OUTSIDE RECORDS SUMMARY | 2025-02-10 12:30 | XMS_ITS | Clinical Summary ---
Author Organization [facility] [address] Address [address] [place] [address] Care Team Providers Care Station Examiner Name Role Phone Apollo Norwood MD Primary Care Provider [phone] Allergies No known active allergies Medications hyoscyamine [...] of Treatment [place] [address] MEDICARE [facility] [place] [address] Care Teams Station Examiner Relationship Specialty Start Date End Date Apollo Norwood MD [address] [place] [address] PCP - General Internal Medicine 01/12/20
--- OUTSIDE RECORDS SUMMARY | 2025-02-10 12:30 | XMS_ITS | Encounter Summary ---
Author Organization [facility] [employer] Marti [facility] Address [address] [place] [address] Care Team Providers Care Drill Rig Operator Name Role Phone Unavailable Primary Care Provider Unavailabl e Encounter Details Date Type Department Care Team (Late Contact Info) Description 02/08/2025 Orders Only [facility] Oncology [facility] [address] [place] [phone] Shiv Mosher MD [facility] [address] [place] [phone] Social History Tobacco Use Types Packs/Day [...] Department Care Team (Late Contact Info) Description 02/18/2025 9:00 AM CDT Office Visit [facility] Oncology [facility] [address] [place] [phone] Shiv Mosher MD [facility] [address] [place] [address] documented as of this encounter Procedures Procedure Name Priority Date/Time Associated Diagnosis Comments COMPREHENSIVE METABOLIC PANEL Routine 02/04/2025 11:16 AM CDT documented in this encounter Results * COMPREHENSIVE METABOLIC PANEL (02/04/2025 11:16 AM CDT) Blood us Shiv Mosher MD CHEMISTRY ORDERABLES Final Resu lt documented in this encounter Visit Diagnoses Not on filedocumented in this encounter
--- OUTSIDE RECORDS SUMMARY | 2025-02-10 12:30 | XMS_ITS | Encounter Summary ---
Author Organization [facility] [employer] Marti [facility] Address [address] [place] [address] Care Team Providers Care Chaser Helper Name Role Phone Unavailable Primary Care Provider Unavailabl e Encounter Details Date Type Department Care Team ([facility] Contact Info) Description 02/04/2025 Orders Only [facility] Oncology [facility] [address] [place] [phone] Shiv Mosher MD [address] [place], [place] [address] [address] [place] [phone] Social History Tobacco Use Types Packs/Day [...] Description 02/18/2025 9:00 AM CDT Office Visit [facility] Oncology [facility] [address] [place] [address] Shiv Mosher MD [facility] [address] [place] [address] documented as of this encounter Procedures Procedure Name Priority Date/Time Associated Diagnosis Comments BASIC METABOLIC PANEL Routine 02/04/2025 12:49 PM CDT CBC WITH AUTODIFFERENTIAL Routine 2024 12:46 PM CDT documented in this encounter Results * BASIC METABOLIC PANEL (02/04/2025 12:49 PM CDT) Blood us Shiv Mosher MD CHEMISTRY ORDERABLES Final Resu lt * CBC WITH AUTODIFFERENTIAL (02/04/2025 12:46 PM CDT) Blood us Shiv Mosher MD HEMATOLOGY ORDERABLES Final Res ult documented in this encounter Visit Diagnoses Not on filedocumented in this encounter
--- OUTSIDE RECORDS SUMMARY | 2025-02-10 12:30 | XMS_ITS | Clinical Summary ---
Author Organization [facility] Address [address] [place] [address] Care Team Providers Care Children'S Attendant Name Role Phone Unavailable Primary Care Provider [...]
== END 2025-02-10 12:26 | disposition home or self-care (01) ==
PROVIDERS: PCP Physician Assistant Medical; Visit Provider Internal Medicine Hematology & Oncology
DX: C56.9 Malignant neoplasm of unspecified ovary (principal); J90 Pleural effusion, not elsewhere classified; S32.010D Wedge compression fracture of first lumbar vertebra, subsequent encounter for fracture with routine healing; X58.XXXD Exposure to other specified factors, subsequent encounter
CPT/HCPCS: 71260; 74177; Q9967

== ENCOUNTER 2025-04-26 09:13 | Emergency (ER) | payer MEDICARE, SELFPAY ==
--- NOTE | ~2025-04-26 | CT_ITS ---
EXAMINATION: CT pelvis wo con COMPARISON: None HISTORY: R hip pain x1 week, hx ovarian CA TECHNIQUE: Axial images were obtained without IV contrast. Sagittal, coronal reconstruction images were obtained from the axial views. CT scan performed using dose optimization techniques including the following automated exposure control; adjustment of mA and/or kV; use of iterative reconstruction technique. Automatic exposure control was used to reduce radiation dose. Permanent radiation dose record is archived to PACS. FINDINGS: Moderate degenerative changes of the sacroiliac joints bilaterally. Moderate to severe degenerative changes of the acetabular femoral joints bilaterally. There is no fracture or dislocation. No avascular necrosis. Small joint effusions are noted. There is no osseous destruction. The intrapelvic soft tissues appear unremarkable. IMPRESSION: No acute fracture. Degenerative changes detailed above. If pain persists MRI is suggested Reviewed, dictated and finalized at location P. TRIC MOTOR ASSEMBLER IMPRESSION: No acute fracture. Degenerative changes detailed above. If pain per sists MRI is suggested
--- NOTE | ~2025-04-26 | US_ITS ---
RIGHT LOWER EXTREMITY VENOUS DUPLEX Clinical History: pain down RLE, hx ovarian CA, redness R glute COMPARISON: 07/21/2021 TECHNIQUE: Grayscale, color, duplex/spectral Doppler sonography right leg FINDINGS: Right leg common femoral, femoral, popliteal, and calf veins compressible and color Doppler patent. Normal augmentation with distal compression. No internal echoes. IMPRESSION: 1. No right leg DVT. Reviewed, dictated and finalized at location R. GER GENERATION IMPRESSION: 1. No right leg DVT.
[2025-04-26 09:15] VITALS: BP 155/68; PULSE 71; RESP 20; TEMP 37.2; O2SAT 99
--- NOTE | 2025-04-26 09:26 | ED.LOWEXIN ---
HPI - Extremity Injury (Lower) General Chief Complaint: Abdominal Pain Stated Complaint: right hip pain x 2 months Time Seen by Provider: 04/26/25 09:18 Source: patient Mode of arrival: EMS Limitations: no limitations History of Present Illness HPI Narrative: Patient is an 84 y/o female, with PMH of pacemaker, HTN, HLD, who presents to the ED via EMS with report of R hip pain. Patient reports having increased pain since last Saturday. Pain present in her right posterior hip/buttocks and radiates down her right lateral thigh. Pain worsening last night into today to the point she is having difficulty ambulating. Reports she fell a few months ago onto her back, but was evaluated in the ED and did not have any fractures. Denies any new or recent fall or injury. Has been taking Flexeril and Tylenol without improvement. Denies numbness, tingling, bowel or bladder incontinence, swelling throughout right lower extremity. 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 Seen Dr. Mosher. States she finished two rounds of chemo last week and is scheduled to have repeat imaging performed this week to determine if she will need more treatments. Related Data Home Medications ?Medication ?Instructions ?Recorded ?Confirmed ?Last Taken ?Type omega 6-bxr-tbe-fish oil 300 1 cap PO DAILY 07/21/21 04/22/25 09/24/24 20:00 History mg-1,000 mg capsule (Fish Oil) 1 cap psyllium husk 3.4 gram/5.4 gram 2 tsp PO DAILY Constipation 09/25/21 04/22/25 09/24/24 08:00 History oral powder (Metamucil) 2 tsp ascorbate calcium (vitamin C) 500 500 mg PO DAILY 04/06/22 04/22/25 09/25/24 08:00 History mg tablet 500 mg lidocaine-prilocaine 2.5 %-2.5 % 1 applic topical ONCE PRN 11/23/22 04/22/25 09/17/24 14:00 History topical cream port/catheter care 1 applic ondansetron 8 mg disintegrating 8 mg PO Q8H PRN Nausea 11/23/22 04/22/25 09/22/24 00:00 History tablet 8 mg cholecalciferol (vitamin D3) 50 50 mcg PO DAILY 03/01/23 04/22/25 09/25/24 08:00 History mcg (2,000 unit) capsule 50 mcg carboxymethylcellulose 0.5 1 drp ophthalmic (eye) Q6H PRN Pain 10/17/23 04/22/25 09/24/24 20:00 History %-glycerin 0.9 % (PF) eye drops 2 drp (Refresh Relieva PF) carboxymethylcellulose 1 1 drp EACH EYE HS 10/17/23 04/22/25 09/24/24 20:00 History %-glycerin 0.9 % eye gel drops 2 drp (Refresh Optive) acetaminophen 650 mg 650 mg PO Q12H PRN pain 02/20/24 04/22/25 09/24/24 20:00 History tablet,extended release (Tylenol 8 650 mg Hour) aspirin 81 mg tablet,delayed 81 mg PO HS 08/06/24 04/22/25 09/24/24 20:00 History release (Adult Low Dose Aspirin) 81 mg loperamide 2 mg capsule 2 mg PO QID PRN loose stool 08/06/24 04/22/25 Unknown History (Anti-Diarrheal (loperamide)) ferrous sulfate 325 mg (65 mg 325 mg PO DAILY 09/10/24 04/22/25 09/25/24 08:00 History iron) tablet 325 mg furosemide 20 mg tablet 20 mg PO DAILY 12/08/24 04/22/25 Unknown History Allergies Allergy/AdvReac Type Severity Reaction Status Date / Time No Known Allergies Allergy Verified 04/15/25 10:24 Review of Systems Review of Systems: All systems reviewed & are unremarkable except as noted in HPI. All systems reviewed & are unremarkable except as noted in HPI and below [facility] Past Medical History Medical History Diastolic dysfunction Bleeding ulcer Pulmonary emboli (06/2021) Anxiety Anemia Overactive bladder Ovarian cancer Status post surgery and chemotherapy, currently on maintenance treatment with Avastin per Dr. Mosher Chronic GERD Osteoarthritis Hyperlipidemia Dyslipidemia Surgical History Surgical History History of appendectomy History of permanent cardiac pacemaker placement Biotronik pacemaker for heart block History of cataract surgery (2023) History of hysterectomy for cancer (04/2022) Status post robotic complete tumor debulking, total hysterectomy, bilateral salpingo oophorectomy, bilateral ureterolysis, and total omentectomy History of hemorrhoidectomy History of colon resection Family History Family History Father Cerebrovascular accident, Onset Age: 88 Mother Family history of arthritis, Onset Age: 85 Diverticulitis Social History Social History Social History: 04/22/25 patient declined SDOH Surrogate medical decision maker: Darwin Wells, spouse. Code status: Full code. Smoking status: Never smoker Second hand tobacco smoke exposure: No Alcohol intake: never Substance use: never Substance use type: does not use Do You Feel Safe in your Home?: Yes Lack of Transportation: No Lack of Food: Never True Current Housing: I Have Housing Concerned About Future Housing: No Difficulty Paying Gas/Electric Bills: No Difficulty Paying for Meds: No Currently Unemployed: No Education: High School Diploma/GED Difficulty w/ Childcare or Family Care: No Living arrangements: with family Additional living arrangements comments: Lives with spouse in [place]. Occupation/Education: retired Spiritual care concerns: No Exam Narrative: GENERAL: Elderly but well appearing, well-nourished, non-toxic, in mild acute distress d/t pain. HEAD: Normocephalic, atraumatic. RESPIRATORY: Airway patent, respirations nonlabored. CARDIOVASCULAR: Regular rate and rhythm without murmurs, rubs, or gallops. Pedal pulses intact and easily palpable MUSCULOSKELETAL: Moves all extremities. No gross deformities. Small irregular shaped area of erythema, slight warmth to palpation R gluteal region. TTP over R posterior hip joint. No midline spinal tenderness. Sensation intact throughout RLE. No swelling throughout RLE. SKIN: Warm, dry, normal color. NEURO: A&O X3. Speech clear. Cranial nerves II-XII grossly intact. No ataxic movements. PSYCHIATRIC: Appropriate mood and affect. Normal interaction. Course Vital Signs Vital signs: Vital Signs Temperature 98.9 F 04/26/25 09:15 Pulse Rate 71 04/26/25 09:15 Respiratory Rate 20 04/26/25 09:15 Blood Pressure 155/68 H 04/26/25 09:15 Pulse Oximetry 99 04/26/25 09:15 Temperature 98.9 F 04/26/25 09:15 Pulse Rate 89 04/26/25 13:12 Respiratory Rate 18 04/26/25 13:12 Blood Pressure 157/71 H 04/26/25 13:12 Pulse Oximetry 100 04/26/25 13:12 MDM - Extremity Injury (Lower) MDM Narrative Medical decision making narrative: Patient presented to ED with right hip pain ongoing for the past 1 week, radiating down right leg, worsening last night. No fall or injury. Vital signs stable upon arrival. Patient neurovascularly intact. In no acute distress. No evidence of cord compression or cauda equina. No midline lumbar spinal tenderness. She does have a small area of erythema/warmth on right gluteal region. Suspect possibility of cellulitis. Patient given tramadol and Tylenol in the ED. venous Doppler ultrasound of right lower extremity was obtained, no DVT. CT scan of pelvis was obtained and showing some degenerative changes, but no acute fracture, dislocation, or suspected metastatic lesions. Patient updated on imaging results. She was ambulated with a walker and did well with this. States pain is improved. Feels much more comfortable ambulating. Feel she is safe for discharge home. Discussed possibility of sciatica versus musculoskeletal etiology. Will prescribe short course of tramadol for home use, advised to continue Tylenol. She also has lidocaine patches at home. Will also prescribe Keflex for possible superimposed cellulitis. Recommended close follow-up with PCP. Given strict return precautions. She is in agreement with plan. Feels comfortable going home. Discharged in stable condition. Medical Records Attestation: I reviewed the patient's medical records. Imaging Data Attestation: I personally reviewed and interpreted this imaging study as follows: Radiologist's impression: ITS Impressions Pelvis CT 04/26/25 09:58 IMPRESSION: No acute fracture. Degenerative changes detailed above. If pain persists MRI is suggested Venous Doppler Study 04/26/25 10:43 IMPRESSION: 1. No right leg DVT. Discharge Plan Discharge Clinical Impression: Cellulitis, gluteal, right Strain of right hip and thigh Qualifiers: Encounter type: initial encounter Qualified Code(s): S76.011A - Strain of muscle, fascia and tendon of right hip, initial encounter Patient Disposition: Home Condition: Stable Instructions: Antibiotic Form, Sciatica (ED), Arthralgia (ED), Hip Pain (ED) Additional Instructions: Take antibiotics as prescribed for possible superficial skin infection. Recommend frequent gentle movements throughout the day. Continue Tylenol as needed for pain. You can take 1000 mg of Tylenol every 6 hours. Tramadol as needed for more severe pain. You may use ice/heat, lidocaine patches to area of pain. Take muscle relaxers as needed and prescribed. Recommend taking these at night as they may cause sedation. Do not drive, operate heavy machinery, drink alcohol while on muscle relaxers as this may cause further sedation. Use caution taking muscle relaxers and tramadol as these can both cause sedation. Follow-up with your primary care doctor and/or Orthopedics for further evaluation. Call offices to make appointments. Return to the ED if you experience worsening or severe pain, new fall or injury, numbness in groin or legs, going to the bathroom without meaning to, unable to keep down food or drink, or any other symptoms of concern. Patient Language: Czech Prescriptions: New tramadol 50 mg tablet 50 mg PO Q6H PRN (Reason: pain) Qty: 15 0RF cyclobenzaprine 5 mg tablet 5 mg PO TID PRN (Reason: muscle spasm) Qty: 10 0RF cephalexin 500 mg capsule 500 mg PO Q12H 7 Days Qty: 14 0RF No Action ondansetron 8 mg Tablet,Disintegrating 8 mg PO Q8H PRN (Reason: Nausea) Patient Comments: Only taken 3-4 times in the last 4 years. lidocaine-prilocaine 2.5-2.5 % Cream 1 applic TOPICAL ONCE PRN (Reason: port/catheter care) cholecalciferol (vitamin D3) 50 mcg (2,000 unit) Capsule 50 mcg PO DAILY Refresh Optive 1-0.9 % Drops,Gel 1 drp EACH EYE HS Patient Comments: . Refresh Relieva PF 0.5-0.9 % Drops 1 drp OPHTHALMIC (EYE) Q6H PRN (Reason: Pain) Patient Comments: . acetaminophen [Tylenol 8 Hour] 650 mg Tablet Extended Release 650 mg PO Q12H PRN (Reason: pain) Patient Comments: ........ aspirin [Adult Low Dose Aspirin] 81 mg tablet,delayed release (DR/EC) 81 mg PO HS Patient Comments: . loperamide [Anti-Diarrheal (loperamide)] 2 mg capsule 2 mg PO QID PRN (Reason: loose stool) furosemide 20 mg tablet 20 mg PO DAILY Patient Comments: . cyclobenzaprine 5 mg tablet 5 mg PO TID PRN (Reason: muscle spasm) Qty: 20 0RF omega 8-kbh-gys-fish oil [Fish Oil] 300-1,000 mg Capsule 1 cap PO DAILY Patient Comments: . Rx Instructions: 1000 mg two capsules daily Metamucil 3.4 gram/5.4 gram Powder 2 tsp PO DAILY cyanocobalamin (vitamin B-12) 1,000 mcg capsule 1,000 mcg PO DAILY Qty: 30 1RF ferrous sulfate 325 mg (65 mg iron) tablet 325 mg PO DAILY ascorbate calcium (vitamin C) 500 mg tablet 500 mg PO DAILY Patient Comments: . hydralazine 50 mg tablet See Rx Instructions .ROUTE .COMPLEX Qty: 90 5RF Dose Instruction: TAKE 1 TABLET BY MOUTH THREE TIMES DAILY Rx Instructions: TAKE 1 TABLET BY MOUTH THREE TIMES DAILY pravastatin 40 mg tablet 40 mg PO QHS Qty: 90 1RF pantoprazole 40 mg tablet,delayed release (DR/EC) 40 mg PO QHS Qty: 90 0RF Patient Comments: . oxybutynin chloride 10 mg tablet extended release 24hr 10 mg PO DAILY Qty: 90 0RF amlodipine 5 mg tablet See Rx Instructions .ROUTE .COMPLEX Qty: 90 2RF Dose Instruction: TAKE 1 TABLET BY MOUTH DAILY Patient Comments: . Rx Instructions: TAKE 1 TABLET BY MOUTH DAILY carvedilol 12.5 mg tablet See Rx Instructions .ROUTE .COMPLEX Qty: 60 5RF Dose Instruction: TAKE 1 TABLET BY MOUTH EVERY 12 HOURS WITH FOOD Rx Instructions: TAKE 1 TABLET BY MOUTH EVERY 12 HOURS WITH FOOD tramadol 50 mg tablet 50 mg PO Q6H PRN (Reason: pain) Qty: 30 0RF Follow-up/Referrals: Gina Salvador PA-C [Primary Care Provider, Family Practice] Jose Martin Dhaliwal MD [Physician, Orthopedics] Referral Note: ORTHOPEDICS Time of Disposition: 12:21
--- OUTSIDE RECORDS SUMMARY | 2025-04-26 10:11 | XMS_ITS | Encounter Summary ---
Author Organization [facility] [email or web address] [facility] Address [address] [place] [address] Care Team Providers Care Director Data Architecture Name Role Phone Unavailable Primary Care Provider Unavailabl e Encounter Details Date Type Department Care Team (Late Contact Info) Description 04/26/2025 Orders Only [facility] Oncology and [facility] [address] [place] [address] Shiv Mosher MD [address] [place] [address] Malignant neoplasm of ovary, unspecified laterality Social History Tobacco Use Types Packs/Day Years [...] Care Team (Late st Contact Info) Description 05/10/2025 9:00 AM 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
--- OUTSIDE RECORDS SUMMARY | 2025-04-26 10:11 | XMS_ITS | Clinical Summary ---
Author Organization [facility] [address] Address [address] [place] [address] Care Team Providers Care Rn Maternity Name Role Phone Apollo [place] MD Primary [...] of Treatment [place] [id number] [facility] [address] Care Teams Rn Maternity Relationship Specialty Start Date End Date Apollo [place]wood MD [address] [place] [id number] PCP - General Internal Medicine 01/12/20
--- OUTSIDE RECORDS SUMMARY | 2025-04-26 10:11 | XMS_ITS | Clinical Summary ---
Author Organization [facility] Address [address] [place] [address] Care Team Providers Care Coremaking Machine Operator Name Role Phone Unavailable Primary [...] - 1-dose 75+ series) 2016 COVID-19 Vaccine (2024-2 6 season) 2025 Influenza Adult (#1) 2025 Hepatitis A Vaccines Aged Out No long er eligible based on patient's age to complete this topic Meningococcal B Vaccine Aged Out No l onger eligible based on patient's age to complete this topic Meningococcal Vaccine Aged Out No ramno chance eligible based on patient's age to complete this topic RSV Immunizations Under 20 Months Aged Out No longer eligible based on patient's age to complete this topic
--- OUTSIDE RECORDS SUMMARY | 2025-04-26 10:11 | XMS_ITS | Clinical Summary ---
Author Organization [facility] Address [address] [place] [address] Phone Care Team Providers Care Mud Analysis Well Logging Operator Name Role Phone Unavailable Primary Care Provider Unavailabl e Allergies No known active allergies Medications pravastatin (PRAVACHOL) 40 mg tablet Take 40 mg by mouth daily with supper. Active losartan (COZAAR) 50 mg tablet Take 100 mg by mouth daily. Active Fish Oil-O[place]-3 Fatty Acids 300-500 mg Capsule Take by [...] daily. 30 Tablet 1 05/12/2022 10:07 AM CABINET PROFESSIONAL 2 Active Additional Information Patient taking [...] by mouth 2 times daily. 2 Active lidocaine (LIDODERM) 5 % Adhesive Patch, Medicated APPLY 2 PATCHES TOPICALLY TO THE SKIN DAILY. LEAVE ON MOST PAINFUL AREA FOR UP TO 12 HOURS 5 Active pregabalin (LYRICA) 50 mg Capsule Take 50 mg by mouth daily at bedtime. 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 PE (pulmonary thromboembolism) Pacemaker IBS (irritable bowel syndrome) Hyperlipidemia HTN (hypertension) GERD (gastroesophageal reflux disease) Elevated tumor markers Pelvic mass in female Other specified anemias Medically complex patient Treatment plan provided Abnormal weight loss Encounters Date Type Department Care Team Description 04/26/2025 Orders Only [facility] Oncology and Hematology - [place] [address] [place] [id number] Shiv Mosher MD Malignant neoplasm of ovary, unspecified laterality 04/15/2025 Orders Only [facility] Oncology and Hematology - [place] [address] [place] [id number] Shiv Mosher MD 04/13/2025 Orders Only [facility] Oncology and Hematology - [place] [address] [place] [address] Shiv Mosher MD 04/12/2025 Orders Only [facility] Oncology and Hematology - [place] [address] [place] [address] Shiv Mosher MD Malignant neoplasm of ovary, unspecified laterality 04/08/2025 Orders Only [facility] Oncology and Hematology - [place] [address] [place] [address] Shiv Mosher MD 04/06/2025 Orders Only [facility] Oncology and Hematology - [place] [address] [place] [address] Shiv Mosher MD 04/02/2025 Orders Only [facility] Oncology and Hematology - [place] [address] [place] [id number] Shiv Mosher MD 04/01/2025 9:00 AM CDT Office Visit [facility] Oncology and Hematology [facility] [address] [place] [id number] Shiv Mosher MD Malignant neoplasm of ovary, unspecified laterality (Primary Dx) 03/29/2025 Orders Only [facility] Oncology and Hematology - [place] [address] [place] [id number] Shiv Mosher MD Malignant neoplasm of ovary, unspecified laterality 03/18/2025 Orders Only [facility] Oncology and Hematology [facility] [address] [place] [address] Shiv Mosher MD 03/15/2025 Orders Only [facility] Oncology and Hematology - [place] [address] [place] [id number] Shiv Mosher MD Malignant neoplasm of ovary, unspecified laterality (CMS/HCC) 03/11/2025 9:00 AM CDT Office Visit [facility] Oncology and Hematology [facility] [address] [place] [id number] Shiv Mosher MD Malignant neoplasm of ovary, unspecified laterality (CMS/HCC) (Primary Dx) 03/11/2025 Orders Only [facility] Oncology and Hematology [facility] [address] [place] [address] Shiv Mosher MD 03/09/2025 External Device Data STL ABSTRACTION Provider, Abstract 03/05/2025 Orders Only [facility] Oncology and Hematology [facility] [address] [place] [address] Shiv Mosher MD 03/04/2025 Orders Only [facility] Oncology and Hematology - [place] [address] [place] [id number] Shiv Mosher MD 03/01/2025 Orders Only [facility] Oncology and Hematology - [place] [address] [place] [address] Shiv Mosher MD Malignant neoplasm of ovary, unspecified laterality (CMS/HCC) 02/26/2025 Orders Only [facility] Oncology and Hematology - [place] [address] [place] [id number] Shiv Mosher MD 02/23/2025 External Device Data STL ABSTRACTION Provider, Abstract 02/23/2025 Refill [facility] Oncology and Hematology - [place] [address] [place] [address] Shiv Mosher MD 02/19/2025 Orders Only [facility] Oncology and Hematology - [place] [address] [place] [address] Shiv Mosher MD 02/18/2025 9:00 AM CDT Office Visit [facility] Oncology and Hematology - [place] [address] [place] [address] Shiv Mosher MD Malignant neoplasm of ovary, unspecified laterality (CMS/HCC) (Primary Dx) 02/18/2025 Orders Only [facility] Oncology and Hematology - [place] [address] [place] [address] Shiv Mosher MD 02/15/2025 Orders Only [facility] Oncology and Hematology - [place] [address] [place] [address] Shiv Mosher MD Malignant neoplasm of ovary, unspecified laterality (CMS/HCC) 02/11/2025 Orders Only [facility] Oncology and Hematology - [place] [address] [place] [address] Shiv Mosher MD 02/08/2025 Orders Only [facility] Oncology and Hematology - [place] [address] [place] [id number] Shiv Mosher MD 02/04/2025 Orders Only [facility] Oncology and Hematology - [place] [address] Shiv Mosher MD 02/02/2025 Orders Only [facility] Oncology and Hematology - [place] [address] [place] [phone] Shiv Mosher MD 02/01/2025 Orders Only [facility] Oncology and Hematology - [place] [address] [place] [phone] Shiv Mosher MD Malignant neoplasm of ovary, unspecified laterality (CMS/HCC) 01/26/2025 Telephone [facility] Oncology and Hematology - [place] [address] [place] [address] Shiv Mosher MD Medication Review from Last 3 Months Immunizations Immunization Administration Dates Next Due ([email or web address])(12 YR UP) COVID-19 VACCINE - EMERGENCY USE AUTHORIZATION, MRNA, [id number](PF) 30 MCG/0.3 ML IM SUSP 04/17/2021 Influenza [...] Sign Reading Time Taken Comments Blood Pressure 139/66 04/01/2025 8:44 AM CDT Pulse 72 04/01/2025 8:44 AM CDT Temperature 36.2 C (97.2 F) 04/01/2025 8:44 AM CDT Respiratory Rate 16 04/01/2025 8:44 AM CDT Oxygen Saturation 94% 04/01/2025 8:44 AM CDT Inhaled Oxygen Concentration - - Weight 54.6 kg (120 lb 6.4 oz) 04/01/2025 8:44 A M CDT Height 157.5 cm (5' 2) 05/31/2022 3:03 PM CABINET PROFESSIONAL Body Mass Index 22.02 05/31/2022 3:03 PM CABINET PROFESSIONAL Plan of Treatment Upcoming Encounters Date Type Department Care Team (Late st Contact Info) Description 05/10/2025 9:00 AM CABINET PROFESSIONAL Office Visit [facility] Oncology and Hematology - [place] [address] [place] [address] Connie Poon MD [address] [place] [address] Health Maintenance Due Date Last [...] years Discontinued Medical Devices Implanted Type Area Inspector Of Weights And Measures Device Identifier Shelf Expiration Date Model / Serial / Lot Port Powerport Clearvue 8fr Mri [id number] - [id number] Implanted:Qty : 1 on 12/19/2021 by June Hunter MD at [facility] Port Right: Chest [employer] [id number] 12/21/2022 [id number] / / [id number] Pacemaker Procedures Procedure Name Priority Date/Time Associated Diagnosis Comments COMPREHENSIVE METABOLIC PANEL Routine 04/15/2025 11:54 AM CDT CBC WITH AUTODIFFERENTIAL Routine 2024 2:28 PM CDT COMPREHENSIVE METABOLIC PANEL Routine 04/08/2025 1:59 PM CDT CHG CA 125 Routine 04/08/2025 12:33 PM CDT CHG CA 15 3 Routine 04/01/2025 8:02 AM CDT CBC WITH AUTODIFFERENTIAL Routine 2024 1:26 PM CDT COMPREHENSIVE METABOLIC PANEL Routine 03/18/2025 12:37 PM CDT BASIC METABOLIC PANEL Routine 03/11/2025 3:38 PM CDT COMPREHENSIVE METABOLIC PANEL Routine 03/11/2025 3:34 PM CDT COMPREHENSIVE METABOLIC PANEL Routine 03/04/2025 1:03 PM CDT CHG CA 125 Routine 03/04/2025 12:03 PM CDT BASIC METABOLIC PANEL Routine 03/04/2025 8:37 AM CDT IRON, TIBC, AND PERCENT SATURATION Routine 02/26/2025 12:47 PM CDT CBC WITH AUTODIFFERENTIAL Routine 2024 12:28 PM CDT BASIC METABOLIC PANEL Routine 02/18/2025 11:39 AM CDT COMPREHENSIVE METABOLIC PANEL Routine 02/18/2025 11:34 AM CDT CHG CA 125 Routine 02/18/2025 9:23 AM CDT BASIC METABOLIC PANEL Routine 02/11/2025 11:49 AM CDT COMPREHENSIVE METABOLIC PANEL Routine 02/11/2025 11:48 AM CDT CBC WITH AUTODIFFERENTIAL Routine 2024 11:[address] CHEST ABDOMEN PELVIS W CONT Routine 02/10/2025 9:34 AM CDT BASIC METABOLIC PANEL Routine 02/04/2025 12:49 PM CDT CBC WITH AUTODIFFERENTIAL Routine 2024 12:46 PM CDT COMPREHENSIVE METABOLIC PANEL Routine 02/04/2025 11:16 AM CDT CBC WITH AUTODIFFERENTIAL Routine 2024 10:32 AM CDT from Last 3 Months Results * COMPREHENSIVE METABOLIC PANEL (04/15/2025 11:54 AM CDT) Only the most recent of8 resultswithin the time period is included. Blood us Shiv Mosher MD CHEMISTRY ORDERABLES Final Resu lt * CBC WITH AUTODIFFERENTIAL (04/12/2025 2:28 PM CDT) Only the most recent of6 resultswithin the time period is included. Blood Result [facility] us Shiv Mosher MD HEMATOLOGY ORDERABLES Final Res ult * CHG CA 125 (04/08/2025 12:33 PM CDT) Only the most recent of3 resultswithin the time period is included. Result Hannah Mosher MD CHG - LABORATORY Final Result * CHG CA 15 3 (04/01/2025 8:02 AM CDT) Result Hannah Mosher MD CHG - LABORATORY Final Result * BASIC METABOLIC PANEL (03/11/2025 3:38 PM CDT) Only the most recent of5 resultswithin the time period is included. Blood Result Hannah Mosher MD CHEMISTRY ORDERABLES Final Resu lt * IRON, TIBC, AND PERCENT SATURATION (02/26/2025 12:47 PM CDT) Blood us Shiv Mosher MD CHEMISTRY ORDERABLES Final Resu lt * CT CHEST ABDOMEN PELVIS W CONT (02/10/2025 9:34 AM CDT) Anatomical Region Laterality Modality Chest Computed Tomogra phy us Shiv Mosher MD CT ORDERABLES Final Result from Last 3 [place] [address] [facility] SUPP MEDICARE PART A AND B RX [employer] Medicare Part D MEDICARE PART A AND B BCBS SUPP Advance Directives For more information, please contact: [phone] Documents on File Type Date Recorded 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
[2025-04-26] MEDS: ACETAMINOPHEN 500 MG TABLET 1000 MG PO (10:21)
[2025-04-26] MEDS: traMADol HCL (*CRX) 25 MG TABLET PO (10:22)
[2025-04-26 12:18] VITALS: BP 138/65; PULSE 78; RESP 16; O2SAT 95
[2025-04-26 13:12] VITALS: BP 157/71; PULSE 89; RESP 18; O2SAT 100
== END 2025-04-26 13:13 | disposition home or self-care (01) ==
PROVIDERS: Emergency Provider Physician Assistant; PCP Physician Assistant Medical
DX: S76.011A Strain of muscle, fascia and tendon of right hip, initial encounter (principal); L03.317 Cellulitis of buttock; Z86.711 Personal history of pulmonary embolism; F41.9 Anxiety disorder, unspecified; D64.9 Anemia, unspecified; Z85.43 Personal history of malignant neoplasm of ovary; K21.9 Gastro-esophageal reflux disease without esophagitis; M19.90 Unspecified osteoarthritis, unspecified site; E78.5 Hyperlipidemia, unspecified; I10 Essential (primary) hypertension; Z95.0 Presence of cardiac pacemaker; X58.XXXA Exposure to other specified factors, initial encounter
CPT/HCPCS: 72192; 93971; 99284; A9270

== ENCOUNTER 2025-04-29 07:46 | Outpatient (CLI) | payer MEDICARE, SELFPAY ==
--- NOTE | ~2025-04-29 | CT_ITS ---
Exam: CT chest, abdomen and pelvis with contrast Clinical History: [Ovarian malignancy ] Comparison: [ CT chest abdomen and pelvis with contrast 02/10/2025] Technique: Multiple axial CT images of the chest, abdomen and pelvis were obtained with IV contrast. Sagittal and coronal reformatted images were obtained. FINDINGS: Lungs and pleura: [ Tracheal bronchial tree is patent. No pneumothorax. Small left-sided pleural effusion, unchanged. There are few small bandlike and reticular opacities in the lower lungs similar to the prior study. Interval development of numerous less than 8mm pulmonary nodules scattered throughout both lungs concerning for metastatic disease. Mediastinum and pulmonary eralene: [ No mass or adenopathy.] Axillary/intramammary and supraclavicular: [ No mass or adenopathy.] Heart and great vessels: [ No pericardial effusion.] [ No aneurysm.] Heart is moderately enlarged, unchanged. Coronary artery calcifications are noted. Mild atherosclerotic disease in the thoracic aorta. Chest Wall: [ Unremarkable.] Liver: [ No intrahepatic biliary duct dilatation.] Grossly stable liver lesions. No new liver lesions. Gallbladder: Grossly stable. Common bile duct: [ Grossly stable. [ No stones.] Spleen: Splenic granulomas. Stable too small to characterize low-attenuation lesion in the spleen. Pancreas: Grossly stable. Adrenals: [ No masses.] Kidneys: [ No masses. No hydronephrosis.][ There are a few too small to characterize low-attenuation lesions in the kidneys similar to the prior study.] Lymph nodes: [ No adenopathy in the abdomen or pelvis.] Stomach, small bowel and colon: [ No bowel wall thickening or obstruction.] Peritoneum cavity: Grossly stable peritoneal implants as compared to study from 02/10/2025. Trace ascites similar to the prior study from 02/10/2025.. Bladder: [ Unremarkable.] Osseous structures: [ Multilevel degenerative change in the visualized spine.] Compression fracture of L1 vertebral body similar to the prior study from 02/10/2025. Grossly stable appearance of the L5 vertebral body. Abdominal aorta: [ No aneurysm.] Atherosclerotic disease in the thoracic aorta. Additional findings: [ None of significance.] IMPRESSION: 1. Interval development of numerous less than 8mm pulmonary nodules scattered throughout both lungs concerning for metastatic disease. A follow-up chest CT in 3 months is recommended. 2. Stable appearance of the abdomen and pelvis as compared to the study from February 10, 2025. 3. Stable small left-sided pleural effusion. 4. Severe L1 compression fracture similar to the prior study from February 10, 2025. Reviewed, dictated and finalized at location [facility]. [facility] IMPRESSION: 1. Interval development of numerous less than 8mm pulmonary nodules scattered t hroughout both lungs concerning for metastatic disease. A follow-up chest CT in 3 months is recommended. 2. Stable appearance of the abdomen and pelvis as compared to the study from 2024. 3. Stable small left-sided pleural effusion. 4. Severe L1 compression fracture similar to the prior study from February 10.
--- OUTSIDE RECORDS SUMMARY | 2025-04-29 16:43 | XMS_ITS | Clinical Summary ---
Author Organization [facility] Address [address] [place] [address] Care Team Providers Care Water Restoration Technician Name Role Phone Unavailable Primary Care Provider [...]
--- OUTSIDE RECORDS SUMMARY | 2025-04-29 16:43 | XMS_ITS | Encounter Summary ---
Author Organization [facility] [employer]i [facility] Address [address] [place] [address] Care Team Providers Care Core Sucker Name Role Phone Unavailable Primary Care Provider Unavailabl e Encounter Details Date Type Department Care Team (Late Contact Info) Description 04/29/2025 Orders Only [facility] [address] [place] [address] Shiv Mosher MD [address] [facility] [address] [place] [address] Social History Tobacco Use Types Packs/Day [...] Department Care Team (Late Contact Info) Description 05/10/2025 9:00 AM SECTION CREWS ACTIVITIES CLERK Office Visit [facility] [address] [place] [address] Connie Poon MD [address] [place] [address] documented as of this encounter Procedures Procedure Name Priority Date/Time Associated Diagnosis Comments CT CHEST ABDOMEN PELVIS W CONT Routine 04/29/2025 12:42 PM SECTION CREWS ACTIVITIES CLERK documented in this encounter Results * CT CHEST ABDOMEN PELVIS W CONT (04/29/2025 12:42 PM SECTION CREWS ACTIVITIES CLERK) Anatomical Region Laterality Modality Chest Computed Tomogra phy Shiv Mosher MD CT ORDERABLES Final Result documented in this encounter Visit Diagnoses Not on filedocumented in this encounter
--- OUTSIDE RECORDS SUMMARY | 2025-04-29 16:43 | XMS_ITS | Encounter Summary ---
Author Organization [facility] Address [address] [place] [address] Care Team Providers Care Ac/Dc Rewinder Name Role Phone Unavailable Primary Care Provider Unavailabl e Reason for Visit * Reason Onset Date Comments Medication Review 04/28/2025 Encounter Details Date Type Department Care Team (Late st Contact Info) Description 04/28/2025 Telephone [facility]3] Oncology and Hematology - [place] [address] [facility] [address] [place] [address] Shiv Mosher MD [address] [facility] [address] [place] [address] Medication Review Social History Tobacco Use Types Packs/Day Years [...] * Telephone Encounter - Michelle Magallon - 04/28/2025 10:03 AM CST Patient is aware of recommendations. She verbalized understanding with no further questions at thistime. L INSTRUMENT REPAIRER * Telephone Encounter - Michelle Magallon - 04/28/2025 10:03 AM CST ----- Message from Dr. Shiv Mosher sent at 04/27/2025 3:59 PM PANEL INSTRUMENT REPAIRER ----- Regarding: RE: Medication Review That is okay ----- Message ----- From: Michelle Magallon Sent: 04/27/2025 1:10 PM PANEL INSTRUMENT REPAIRER To: Shiv Mosher MD Subject: Medication Review Patient called because she seen her doctor and they want to put her on Tramadol 50 mg. She is wanting to make sure this is ok with all her other medications and chemotherapy that she is on? Please advise. L INSTRUMENT REPAIRER documented in this encounter Plan of Treatment Upcoming Encounters Date Type Department Care Team (Late st Contact Info) Description 05/10/2025 9:00 AM PANEL INSTRUMENT REPAIRER Office Visit [facility]3] Oncology and Hematology - [place] [address] [place] [address] Connie Poon MD [address] [place] [address] documented as of this encounter Visit Diagnoses Not on filedocumented in this encounter
--- OUTSIDE RECORDS SUMMARY | 2025-04-29 16:43 | XMS_ITS | Clinical Summary ---
Author Organization [facility] Address [address] [place] [address] Phone Care Team Providers Care System Specialist Name Role Phone Unavailable Primary Care Provider Unavailabl e Allergies No known active allergies Medications pravastatin (PRAVACHOL) 40 mg tablet Take 40 mg by mouth daily with supper. Active losartan (COZAAR) 50 mg tablet Take 100 mg by mouth daily. Active Fish Oil-Jupiter-3 Fatty Acids 300-500 mg Capsule Take by [...] daily. 30 Tablet 1 05/12/2022 10:07 AM LICENSED INVESTMENT SALES ASSISTANT 2 Active Additional Information Patient taking differently: [...] Encounters Date Type Department Care Team Description 04/29/2025 Orders Only [facility] ([facility]3] Oncology and Hematology - [place] [place] [id number] Shiv Mosher MD 04/28/2025 Telephone [facility]3] Oncology and Hematology - [place] [address] [place] [id number] Shiv Mosher MD Medication Review 04/26/2025 Orders Only [facility] ([facility]3] Oncology and Hematology - [place] [place] [id number] Shiv Mosher MD Malignant neoplasm of ovary, unspecified laterality (CMS/HCC) 04/15/2025 Orders Only [facility] ([facility]3] Oncology and Hematology - [place] [place] [phone] Shiv Mosher MD 04/13/2025 Orders Only [facility] ([facility]3] Oncology and Hematology - [place] [address] Shiv Mosher MD 04/12/2025 Orders Only [facility] ([facility]3] Oncology and Hematology - [place] [address] [place] [phone] Shiv Mosher MD Malignant neoplasm of ovary, unspecified laterality (CMS/HCC) 04/08/2025 Orders Only [facility] ([facility]3] Oncology and Hematology - [place] [address] [place] [address] Shiv Mosher MD 04/06/2025 Orders Only [facility]3] Oncology and Hematology - [place] [address] [place] [address] Shiv Mosher MD 04/02/2025 Orders Only [facility]3] Oncology and Hematology - [place] [address] Shiv Mosher MD 04/01/2025 9:00 AM CDT Office Visit [facility]3] Oncology and Hematology - [place] [address] Shiv Mosher MD Malignant neoplasm of ovary, unspecified laterality (CMS/HCC) (Primary Dx) 03/29/2025 Orders Only [facility] ([facility]3] Oncology and Hematology - [address] [place] [phone] Shiv Mosher MD Malignant neoplasm of ovary, unspecified laterality (CMS/HCC) 03/18/2025 Orders Only [facility] ([facility]3] Oncology and Hematology - [place] [address] [place] [address] Shiv Mosher MD 03/15/2025 Orders Only [facility]3] Oncology and Hematology - [place] [address] Shiv Mosher MD Malignant neoplasm of ovary, unspecified laterality (CMS/HCC) 03/11/2025 9:00 AM CDT Office Visit [facility]3] Oncology and Hematology - [place] [address] Shiv Mosher MD Malignant neoplasm of ovary, unspecified laterality (CMS/HCC) (Primary Dx) 03/11/2025 Orders Only [facility] ([facility]3] Oncology and Hematology - [place] [address] [place] [phone] Shiv Mosher MD 03/09/2025 External Device Data STL ABSTRACTION Provider, Abstract 03/05/2025 [facility] Oncology and Hematology - [address] [address] [place] [phone] Shiv Mosher MD 03/04/2025 Orders Only [facility]3] Oncology and Hematology - [place] [address] [place] [address] Shiv Mosher MD 03/01/2025 Orders Only [facility] Oncology and Hematology - [place] [address] [place] [address] Shiv Mosher MD Malignant neoplasm of ovary, unspecified laterality (CMS/HCC) 02/26/2025 Orders Only [facility]3] Oncology and Hematology - [place] [address] [place] [address] Shiv Mosher MD 02/23/2025 External Device Data STL ABSTRACTION Provider, Abstract 02/23/2025 Refill [facility]3] Oncology and Hematology - [place] [address] [place] [address] Shiv Mosher MD 02/19/2025 Orders Only [facility]3] Oncology and Hematology - [place] [address] [place] [address] Shiv Mosher MD 02/18/2025 9:00 AM CDT Office Visit [facility]3] Oncology and Hematology - [place] [address] [place] [address] Shiv Mosher MD Malignant neoplasm of ovary, unspecified laterality (CMS/HCC) (Primary Dx) 02/18/2025 Orders Only [facility]3] Oncology and Hematology - [place] [address] [place] [address] Shiv Mosher MD 02/15/2025 Orders Only [facility]3] Oncology and Hematology - [place] [address] [place] [id number] Shiv Mosher MD Malignant neoplasm of ovary, unspecified laterality (CMS/HCC) 02/11/2025 Orders Only [facility]3] Oncology and Hematology - [place] [address] [place] [address] Shiv Mosher MD 02/08/2025 Orders Only [facility]3] Oncology and Hematology - [place] [address] [place] [address] Shiv Mosher MD 02/04/2025 Orders Only [facility]3] Oncology and Hematology - [place] [address] [place] [address] Shiv Mosher MD 02/02/2025 Orders Only [facility]3] Oncology and Hematology - [place] [address] [place] [address] Shiv Mosher MD 02/01/2025 Orders Only [facility]3] Oncology and Hematology - [place] [address] [place] [id number] Shiv Mosher MD Malignant neoplasm of ovary, unspecified laterality (CMS/HCC) from Last 3 Months Immunizations Immunization Administration Dates Next Due ([employer])(12 YR UP) COVID-19 VACCINE - EMERGENCY USE AUTHORIZATION, MRNA, [id number]) 30 MCG/0.3 ML IM SUSP 04/17/2021 Influenza [...] 157.5 cm (5' 2) 05/31/2022 3:03 PM LICENSED INVESTMENT SALES ASSISTANT Body Mass Index 22.02 05/31/2022 3:03 PM LICENSED INVESTMENT SALES ASSISTANT Plan of Treatment Upcoming Encounters Date Type Department Care Team (Late st Contact Info) Description 05/10/2025 9:00 AM LICENSED INVESTMENT SALES ASSISTANT Office Visit [facility]3] Oncology and Hematology [facility] [address] [place] [address] Connie Poon MD [address] [place] [address] Health Maintenance Due Date Last Done Comments DTAP/TDAP/TD VACCINES (1 - Tdap) 1959 PNEUMOCOCCAL VACCINE 50+ YEARS (1 of 2 - PCV) 08/07/18 62 Traditional Medicare (O) Annual Wellness Visit 08/07 ZOSTER VACCINE (1 [...] years Discontinued Medical Devices Implanted Type Area Manufacturing Accountant Device Identifier Shelf Expiration Date Model / Serial / Lot Port Powerport Clearvue 8fr Mri [id number] - [id number] Implanted:Qty : 1 on 12/19/2021 by June Hunter MD at [facility] Right: Chest [employer] [id number] 12/21/2022 [id number] / / [id number] Pacemaker Procedures Procedure Name Priority Date/Time Associated Diagnosis Comments CT CHEST ABDOMEN PELVIS W CONT Routine 04/29/2025 12:42 PM LICENSED INVESTMENT SALES ASSISTANT COMPREHENSIVE METABOLIC PANEL Routine 04/15/2025 11:54 AM [...] CDT from Last 3 Months Results * CT CHEST ABDOMEN PELVIS W CONT (04/29/2025 12:42 PM LICENSED INVESTMENT SALES ASSISTANT) Only the most recent of2 resultswithin the time period is included. Anatomical Region Laterality Modality Chest Computed Tomogra phy us Shiv Mosher MD CT ORDERABLES Final Result * COMPREHENSIVE METABOLIC PANEL (04/15/2025 11:54 AM [...] PERCENT SATURATION (02/26/2025 12:47 PM CDT) Blood Shiv Mosher MD CHEMISTRY ORDERABLES Final Resu lt from Last 3 Months Insurance BCBS SUPP MEDICARE PART A AND B RX PRIME THERAPEUTICS Medicare Part D MEDICARE PART A AND B BCBS SUPP Advance Directives For more information, please contact: [phone] Documents on File Type Date Recorded Patient Bladder Trimmer Expl 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
--- OUTSIDE RECORDS SUMMARY | 2025-04-29 16:43 | XMS_ITS | Clinical Summary ---
Author Organization [facility] [address] Address [address] [place] [address] Care Team Providers Care Cattle Rancher Name Role Phone Apollo Norwood MD Primary Care Provider [phone] Allergies No known active allergies Medications hyoscyamine [...] Treatment [place] [id number] [place] [address] Care Teams Cattle Rancher Relationship Specialty Start Date End Date Apollo Norwood MD [address] [place] [id number] PCP - General Internal Medicine 01/12/20
--- OUTSIDE RECORDS SUMMARY | 2025-04-29 16:43 | XMS_ITS | Encounter Summary ---
Author Organization [facility] [employer] [facility] Address [address] [place] [address] Care Team Providers Care Certified Alcohol And Drug Counselor Name Role Phone Unavailable Primary Care Provider Unavailabl e Encounter Details Date Type Department Care Team (Late Contact Info) Description 04/26/2025 Orders Only [facility] Oncology [facility] [address] [place] [address] Shiv Mosher MD [address] [facility] [address] [place] [address] Malignant neoplasm of ovary, unspecified [...] (Late Contact Info) Description 05/10/2025 9:00 AM BAND SAW OPERATOR Office Visit [facility] Oncology [facility] [address] [place] [address] Connie Poon MD [address] [place] [address] documented as of this encounter Visit Diagnoses Diagnosis Malignant neoplasm of ovary, unspecified laterality (CMS/HCC) documented in this encounter
== END 2025-04-29 07:47 | disposition home or self-care (01) ==
LOC: ANHIMG 07:50
PROVIDERS: PCP Physician Assistant Medical; Visit Provider Internal Medicine Hematology & Oncology
DX: C56.9 Malignant neoplasm of unspecified ovary (principal); R91.8 Other nonspecific abnormal finding of lung field; J90 Pleural effusion, not elsewhere classified; M48.56XS Collapsed vertebra, not elsewhere classified, lumbar region, sequela of fracture
CPT/HCPCS: 71260; 74177; Q9967

== ENCOUNTER 2025-04-30 09:57 | Outpatient (CLI) | payer MEDICARE, SELFPAY ==
--- OUTSIDE RECORDS SUMMARY | 2025-04-30 10:41 | XMS_ITS | Encounter Summary ---
Author Organization [facility]UN[address] [facility] Address [address] [place] [address] Care Team Providers Care Distribution Coordinator Name Role Phone Unavailable Primary Care Provider Unavailabl e Encounter Details Date Type Department Care Team (Late Contact Info) Description 04/29/2025 Orders Only [facility] Oncology [facility] [address] [place] [address] Shiv Mosher MD [address] [facility] [address] [place] [address] Social History Tobacco Use Types [...] (Late Contact Info) Description 05/10/2025 9:00 AM PAPER CONTROL CLERK Office Visit [facility] Oncology [facility] [address] [place] [address] Connie Poon MD [address] [place] [address] documented as of this encounter Procedures Procedure Name Priority Date/Time Associated Diagnosis Comments CT CHEST ABDOMEN PELVIS W CONT Routine 04/29/2025 12:42 PM PAPER CONTROL CLERK documented in this encounter Results * CT CHEST ABDOMEN PELVIS W CONT (04/29/2025 12:42 PM PAPER CONTROL CLERK) Anatomical Region Laterality Modality Chest Computed Tomogra phy Shiv Mosher MD CT ORDERABLES Final Result documented in this encounter Visit Diagnoses Not on filedocumented in this encounter
--- OUTSIDE RECORDS SUMMARY | 2025-04-30 10:41 | XMS_ITS | Clinical Summary ---
Author Organization [facility] Address [address] [place] [address] Phone Care Team Providers Care Corrugator Name Role Phone Unavailable Primary Care Provider Unavailabl e Allergies No known active allergies Medications pravastatin (PRAVACHOL) 40 mg tablet Take 40 mg by mouth daily with supper. Active losartan (COZAAR) 50 mg tablet Take 100 mg by mouth daily. Active Fish Oil-Westwood-3 Fatty Acids 300-500 mg Capsule Take by [...] daily. 30 Tablet 1 05/12/2022 10:07 AM SHAKE FEEDER 2 Active Additional Information Patient taking differently: [...] Department Care Team Description 04/29/2025 Orders Only [facility] Oncology and Hematology - [place] [address] [place] [id number] Shiv Mosher MD 04/28/2025 Telephone [facility] Oncology and Hematology - [place] [address] [place] [phone] Shiv Mosher MD Medication Review 04/26/2025 Orders Only [facility] Oncology and Hematology - [place] [address] [place] [phone] Shiv Mosher MD Malignant neoplasm of ovary, unspecified laterality (CMS/HCC) 04/15/2025 Orders Only [facility] Oncology and Hematology - [place] [address] [place] [phone] Shiv Mosher MD 04/13/2025 Orders Only [facility] Oncology and Hematology - [place] [address] Shiv Mosher MD 04/12/2025 Orders Only [facility] Oncology and Hematology - [place] [address] [place] [phone] Shiv Mosher MD Malignant neoplasm of ovary, unspecified laterality (CMS/HCC) 04/08/2025 Orders Only [facility] Oncology and Hematology - [place] [address] [place] [address] Shiv Mosher MD 04/06/2025 Orders Only [facility] Oncology and Hematology - [place] [address] [place] [address] Shiv Mosher MD 04/02/2025 Orders Only [facility] Oncology and Hematology - [place] [address] Shiv Mosher MD 04/01/2025 9:00 AM CDT Office Visit [facility] Oncology and Hematology - [place] [address] Shiv Mosher MD Malignant neoplasm of ovary, unspecified laterality (CMS/HCC) (Primary Dx) 03/29/2025 Orders Only [facility] Oncology and Hematology - [address] [place] [phone] Shiv Mosher MD Malignant neoplasm of ovary, unspecified laterality (CMS/HCC) 03/18/2025 Orders Only [facility] Oncology and Hematology - [place] [address] [place] [address] Shiv Mosher MD 03/15/2025 Orders Only [facility] Oncology and Hematology - [place] [address] Shiv Mosher MD Malignant neoplasm of ovary, unspecified laterality (CMS/HCC) 03/11/2025 9:00 AM CDT Office Visit [facility] Oncology and Hematology - [address] Shiv Mosher MD Malignant neoplasm of ovary, unspecified laterality (CMS/HCC) (Primary Dx) 03/11/2025 Orders Only [facility] Oncology and Hematology - [place] [address] [place] [phone] Shiv Mosher MD 03/09/2025 External Device Data STL ABSTRACTION Provider, Abstract 03/05/2025 Orders Only [facility] Oncology and Hematology - [place] [address] [place] [phone] Shiv Mosher MD 03/04/2025 Orders Only [facility] Oncology and Hematology - [place] [address] [place] [address] Shiv Mosher MD 03/01/2025 Orders Only [facility] Oncology and Hematology - [place] [address] [place] [address] Shiv Mosher MD Malignant neoplasm of ovary, unspecified laterality (CMS/HCC) 02/26/2025 Orders Only [facility] Oncology and Hematology - [place] [address] [place] [address] Shiv Mosher MD 02/23/2025 External Device Data STL ABSTRACTION Provider, Abstract 02/23/2025 Refill [facility] Oncology and Hematology - [place] [address] [place] [address] Shiv Mosher MD 02/19/2025 Orders Only [facility] Oncology and Hematology - [place] [address] [place] [address] Shiv Mosher MD 02/18/2025 9:00 AM CDT Office Visit [facility] Oncology and Hematology - [place] [address] [place] [address] Shiv Mosher MD Malignant neoplasm of ovary, unspecified laterality (CMS/HCC) (Primary Dx) 02/18/2025 Orders Only [facility] Oncology and Hematology - [place] [address] [place] [address] Shiv Mosher MD 02/15/2025 Orders Only [facility] Oncology and Hematology - [place] [address] [place] [phone] Shiv Mosher MD Malignant neoplasm of ovary, unspecified laterality (CMS/HCC) 02/11/2025 Orders Only [facility] Oncology and Hematology - [place] [address] [place] [address] Shiv Mosher MD 02/08/2025 Orders Only [facility] Oncology and Hematology - [place] [address] [place] [address] Shiv Mosher MD 02/04/2025 Orders Only [facility] Oncology and Hematology - [place] [address] [place] [address] Shiv Mosher MD 02/02/2025 Orders Only [facility] Oncology and Hematology - [place] [address] [place] [address] Shiv Mosher MD 02/01/2025 Orders Only [facility] Oncology and Hematology - [place] [address] [place] [phone] Shiv Mosher MD Malignant neoplasm of ovary, unspecified laterality (CMS/HCC) from Last 3 Months Immunizations Immunization Administration Dates Next Due ([employer])(12 YR UP) COVID-19 VACCINE - EMERGENCY USE AUTHORIZATION, MRNA, [id number]) 30 MCG/0.3 ML IM SUSP 04/17/2021 Influenza [...] 157.5 cm (5' 2) 05/31/2022 3:03 PM SHAKE FEEDER Body Mass Index 22.02 05/31/2022 3:03 PM SHAKE FEEDER Plan of Treatment Upcoming Encounters Date Type Department Care Team (Late st Contact Info) Description 05/10/2025 9:00 AM SHAKE FEEDER Office Visit [facility] Oncology and Hematology [facility] [address] [place] [address] Connie Poon MD [address] [place] [address] Health Maintenance Due Date Last [...] years Discontinued Medical Devices Implanted Type Area Numerical Control Machine Machinist Device Identifier Shelf Expiration Date Model / Serial / Lot Port Powerport Clearvue 8fr Mri [id number] - [id number] Implanted:Qty : 1 on 12/19/2021 by June Hunter MD at [facility] Right: Chest [employer] [id number] 12/21/2022 [id number] / / [id number] Pacemaker Procedures Procedure Name Priority Date/Time Associated Diagnosis Comments CT CHEST ABDOMEN PELVIS W CONT Routine 04/29/2025 12:42 PM SHAKE FEEDER COMPREHENSIVE METABOLIC PANEL Routine 04/15/2025 11:54 AM [...] ABDOMEN PELVIS W CONT (04/29/2025 12:42 PM SHAKE FEEDER) Only the most recent of2 resultswithin the [...] the time period is included. 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
--- OUTSIDE RECORDS SUMMARY | 2025-04-30 10:41 | XMS_ITS | Clinical Summary ---
Author Organization [facility] Address [address] [place] [address] Care Team Providers Care Stroke Belt Sander Operator Name Role Phone Unavailable Primary Care [...]
--- OUTSIDE RECORDS SUMMARY | 2025-04-30 10:41 | XMS_ITS | Encounter Summary ---
Author Organization [facility] [employer] [facility] Address [address] [place] [address] Care Team Providers Care Drum Maker Name Role Phone Unavailable Primary Care Provider Unavailabl e Encounter Details Date Type Department Care Team (Late Contact Info) Description 04/26/2025 Orders Only [facility] [address] [place] [address] Shiv Mosher MD [address] [facility] [address] [place] [address] Malignant neoplasm of ovary, unspecified [...] (Late Contact Info) Description 05/10/2025 9:00 AM ROD MACHINE OPERATOR Office Visit [facility] [address] [place] [address] Connie Poon MD [address] [place] [address] documented as of this encounter Visit Diagnoses Diagnosis Malignant neoplasm of ovary, unspecified laterality (CMS/HCC) documented in this encounter
--- OUTSIDE RECORDS SUMMARY | 2025-04-30 10:41 | XMS_ITS | Clinical Summary ---
Author Organization [facility] [place] [address] Address [address] [place] [address] Care Team Providers Care Saxophone Assembler Name Role Phone Apollo Norwood MD Primary Care Provider [phone] Allergies No known active allergies Medications hyoscyamine [...] Treatment [place] [id number] MEDIC[address] [facility] [place] [address] Care Teams Saxophone Assembler Relationship Specialty Start Date End Date Apollo Norwood MD [address] [place] [id number] PCP - General Internal Medicine 01/12/20
[2025-04-30 13:27] LABS: Total Protein Urine Random 31 mg/dL; Ur Ttl Prot Creatinine Ratio 0.73 mg/mg (0-0.20)
[2025-04-30 13:29] LABS: Parathyroid Intact 98.0 pg/mL (14.5-75.2)
[2025-04-30 13:30] LABS: Albumin Level 3.8 g/dL (3.5-5.1); Anion Gap 9 mmol/L (4-12); Blood Urea Nitrogen 42 mg/dL (7-17); Calcium 8.7 mg/dL (8.4-10.2); Carbon Dioxide 24 mmol/L (22-30); Chloride 108 mmol/L (98-107); Estimated Glomerular Filt Rate 35; Glucose 87 mg/dL (65-110); Potassium 3.5 mmol/L (3.4-5.0); Sodium 141 mmol/L (137-145)
== END 2025-04-30 09:58 | disposition home or self-care (01) ==
LOC: ANHLAB 09:58
PROVIDERS: PCP Physician Assistant Medical; Visit Provider Internal Medicine Nephrology
DX: I12.9 Hypertensive chronic kidney disease with stage 1 through stage 4 chronic kidney disease, or unspecified chronic kidney disease (principal); N18.32 Chronic kidney disease, stage 3b; N25.81 Secondary hyperparathyroidism of renal origin; E55.9 Vitamin D deficiency, unspecified
CPT/HCPCS: 36415; 80069; 82306; 82570; 83970; 84156